=== PATIENT | female | born 1990 | race Caucasian/White ===

== ENCOUNTER → 2018-05-23 11:49 | Outpatient (CLI) | payer OTHER, SELFPAY | PROVIDERS: Family Provider Family Medicine; PCP Family Medicine; Visit Provider Family Medicine | DX: M54.5 Low back pain (principal) | CPT/HCPCS: 72100 ==

== ENCOUNTER 2018-09-14 22:46 | Emergency (ER) | payer OTHER, SELFPAY ==
[2018-09-14 22:46] VITALS: BP 116/66; PULSE 66; RESP 16; TEMP 36.4; O2SAT 100; BMI 27.2
--- NOTE | 2018-09-15 00:54 | ED.VISSUMM ---
- ER Visit Summary Date of Service: 09/15/18 Chief Complaint: Bilateral eye pain and drainage History of Present Illness: The patient is a 27 F who presents with bilateral eye pain and drainage for 1-1/2 weeks. She had some matting of her eyelids today. She states that she had some drainage and when she pulled it off it seems like part of her eye was sloughing off. She is also currently recovering from an influenza-like illness. She had fever up to 104 sore throat muscle ache and joint aches although this is improving and she has had no fever today. She states with some of the drainage on the right appeared to be bloody. She is currently on antibiotic and steroid eyedrops. She is on Vigamox and prednisolone. She was prescribed this by an broadcast operations manager. Physical Examination: Afebrile vitals normal Visual acuity 20/30 right eye, 20/30 left eye, 20/25 both eyes Patient has bilateral eyelid edema No ecchymosis Anterior chamber deep and quiet Eyelids everted and mucosa appears normal Sclera appears normal Slit-lamp examination appears to show some punctate keratitis. I do not appreciate any obvious corneal ulcer Test Results: Slit-lamp examination as above. We do not have floor seen available. Emergency Department Course and Treatment: At this time I do not see anything immediately vision not threatening. I will refer the patient to ophthalmology neuropsychology division chief. Patient advised to continue current medication regimen and was discharged home. Treatment Plan: [] Disposition: Discharge Impression: Conjunctivitis [place] keratitis This note was generated with [employer] dictation software. It may contain incorrect words, spelling, and punctuation that were not noted in review of the chart prior to signing ED Disposition - Plan for ED Patient: Chief Complaint: Eye Problem Referrals: Mei Hernandez PA-C [Primary Care Provider] -
--- NOTE | 2018-09-15 00:58 | ED.DCSUM_ITS ---
- ER Visit Summary Date of Service: 09/15/18 Chief Complaint: Bilateral eye pain and drainage History of Present Illness: The patient is a 27 F who presents with bilateral eye pain and drainage for 1-1/2 weeks. She had some matting of her eyelids today. She states that she had some drainage and when she pulled it off it seems like part of her eye was sloughing off. She is also currently recovering from an influenza-like illness. She had fever up to 104 sore throat muscle ache and joint aches although this is improving and she has had no fever today. She states with some of the drainage on the right appeared to be bloody. She is currently on antibiotic and steroid eyedrops. She is on Vigamox and prednisolone. She was prescribed this by an boomboat operator. Physical Examination: Afebrile vitals normal Visual acuity 20/30 right eye, 20/30 left eye, 20/25 both eyes Patient has bilateral eyelid edema No ecchymosis Anterior chamber deep and quiet Eyelids everted and mucosa appears normal Sclera appears normal Slit-lamp examination appears to show some punctate keratitis. I do not appreciate any obvious corneal ulcer Test Results: Slit-lamp examination as above. We do not have floor seen available. Emergency Department Course and Treatment: At this time I do not see anything immediately vision not threatening. I will refer the patient to ophthalmology gas distribution plant operator. Patient advised to continue current medication regimen and was discharged home. Treatment Plan: [] Disposition: Discharge Impression: Conjunctivitis [place] keratitis This note was generated with [employer] dictation software. It may contain incorrect words, spelling, and punctuation that were not noted in review of the chart prior to signing ED Disposition - Plan for ED Patient: Chief Complaint: Eye Problem Referrals: Mei Hernandez PA-C [Primary Care Provider] -
--- NOTE | 2018-09-15 00:58 | ED.DEP ---
ED Disposition - Plan for ED Patient: Chief Complaint: Eye Problem Instructions: ED Conjunctivitis Bacterial Referrals: Mei Hernandez PA-C [Primary Care Provider] - Justo Hamilton MD [STAFF PHYSICIAN] -
[2018-09-15 01:09] VITALS: BP 115/71; PULSE 68; RESP 18; O2SAT 100
--- OUTSIDE RECORDS SUMMARY | 2018-12-18 12:42 | XMS RPT_ITS ---
:1990 Author Organization [facility] Care Team Providers Name Role Phone Mei Hernandez PA-C Primary Care Unavailable Jimmy Jones Attending Unavailable Mei Hernandez PA-C Attending Unavailable Mei Hernandez PA-C Referring Unavailable Mei Hernandez PA-C Primary Care Unavailable PROBLEMS PROBLEMS No Problem Records FoundPROCEDURES PROCEDURES No Procedure Records FoundRESULTS RESULTS EMERGENCY DEPARTMENT Observed: 09/15/2018 Status: F Source: [place] SUMMARY 12:58 AM [facility] REPOSITORY [facility] Medical Records Department [address] [place] [id number] Emergency Department Summary 09/15/18 0054 MR#: [id number] Acct: [id number] Name: ARLEEN CLARK Rep #: [id number] : 1990 27 From: Jimmy Jones MD PCP: Mei Hernandez PA-C Status: REG ER - ER Visit Summary Date of Service: 09/15/18 Chief Complaint: Bilateral eye pain and drainage History of Present Illness: The patient is a 27 F who presents with bilateral eye pain and drainage for 1-1/2 weeks. She had some matting of her eyelids today. She states that she had some drainage and when she pulled it off it seems like part of her eye was sloughing off. She is also currently recovering from an influenza-like illness. She had fever up to 104 sore throat muscle ache and joint aches although this is improving and she has had no fever today. She states with some of the drainage on the right appeared to be bloody. She is currently on antibiotic and steroid eyedrops. She is on Vigamox and prednisolone. She was prescribed this by an ore fielder. Physical Examination: Afebrile vitals normal Visual acuity 20/30 right eye, 20/30 left eye, 20/25 both eyes Patient has bilateral eyelid edema No ecchymosis Anterior chamber deep and quiet Eyelids everted and mucosa appears normal Sclera appears normal Slit-lamp examination appears to show some punctate keratitis. I do not appreciate any obvious corneal ulcer Test Results: Slit-lamp examination as above. We do not have floor seen available. Emergency Department Course and Treatment: At this time I do not see anything immediately vision not threatening. I will refer the patient to ophthalmology ad operations associate. Patient advised to continue current medication regimen and was discharged home. Treatment Plan: [] Disposition: Discharge Impression: Conjunctivitis [place] keratitis This note was generated with Kalion dictation software. It may contain incorrect words, spelling, and punctuation that were not noted in review of the chart prior to signing ED Disposition - Plan for ED Patient: Chief Complaint: Eye Problem Referrals: Mei Hernandez PA-C [Primary Care Provider] - What to do if you have Problems For any increased pain, shortness of breath, bleeding, nausea or vomiting, chest pain, or any unexpected problems, contact your Primary Care Provider. Call [facility] ([phone]) or report to the closest Emergency Room. Call 911 if necessary. 09/15/18 0058 <Electronically signed by Jimmy Jones MD> Date Jimmy Jones MD Cosigner Signature (If Indicated): Date CC: MIGUELITO Hernandez DISCHARGE INSTRUCTION Observed: 09/15/2018 Status: F Source: [place] 12:58 AM [facility] Medical Records Department [address] [place] [address] Discharge Instruction 09/15/1857 MR#: [id number] Acct: [id number] Name: ARLEEN CLARK Rep #: [id number] : 1990 27 From: Jimmy Jones MD PCP: Mei Hernandez PA-C Status: REG ER ED Disposition - Plan for ED Patient: Chief Complaint: Eye Problem Instructions: ED Conjunctivitis Bacterial Referrals: Mei Hernandez PA-C [Primary Care Provider] - Justo Hamilton MD [STAFF PHYSICIAN] - What to do if you have Problems For any increased pain, shortness of breath, bleeding, nausea or vomiting, chest pain, or any unexpected problems, contact your Primary Care Provider. Call [facility] ([phone]) or report to the closest Emergency Room. Call 911 if necessary. 09/15/1857 <Electronically signed by Jimmy Jones MD> Date Jimmy Jones MD Cosigner Signature (If Indicated): Date CC: MIGUELITO Hernandez PROGRESS Observed: 09/10/2018 Status: COMPLETED Source: [place] 10:04 AM [facility] [place] REPOSITORY O ID: [id number] Author: Khurram Jang (Mirza) Chu Service: (none) Author Type: Physician Passenger T[employer] Builder Type: Progress Notes Filed: 09/10/2018 10:06 AM Note Text: Subjective HPI Patient presents with congestion, fever, sore throat over the past 3 days. She was seen here for a URI and conjunctivitis first started. She states she had spikes and fevers up to 104 and wasn't feeling better so she came back in today. She was seen September 07. No vomiting or diarrhea. She did not get a flu shot this year. Denies chest pain or shortness of breath. She really hasn't had a cough. Review of Systems Constitutional: Positive for chills, fever and malaise/fatigue. HENT: Positive for congestion and sore throat. Eyes: Negative. Respiratory: Negative for cough. Cardiovascular: Negative. Gastrointestinal: Negative. Genitourinary: Negative. Skin: Negative. All other systems reviewed and are negative. PAST MEDICAL HISTORY Diagnosis Date - NEGATIVE MEDICAL HISTORY Current Outpatient Prescriptions: moxifloxacin HCl (MOXIFLOXACIN OPHTHALMIC) Use in eyes. Disp: Rfl: Qbvuxmugsnpqtnf-Ffkgrpezr-DF (BROMFED DM) 2-30-10 mg/5 mL syrup Take 5-10 ml po q6h prn (Patient not taking: Reported on 09/10/2018 ) Disp: 120 mL Rfl: 0 No current facility-administered medications for this visit. PAST SURGICAL HISTORY Procedure Laterality Date - EXTRACTION ERUPTED TOOTH/EXR No family history on file. Social History Substance Use Topics - Smoking status: Never Smoker - Smokeless tobacco: Never Used - Alcohol use No BP 124/70 Pulse 88 Temp 36.9 ?C (98.4 ?F) (Tympanic) Resp 18 Wt 78.9 kg (174 lb) SpO2 97% Objective Physical Exam Constitutional: She is oriented to person, place, and time and well-developed, well-nourished, and in no distress. HENT: Head: Normocephalic and atraumatic. Right Ear: Tympanic membrane, external ear and ear canal normal. Left Ear: Tympanic membrane, external ear and ear canal normal. Nose: Mucosal edema and rhinorrhea present. Mouth/Throat: Uvula is midline and mucous membranes are normal. Posterior oropharyngeal erythema present. No oropharyngeal exudate, posterior oropharyngeal edema or tonsillar abscesses. Neck: Normal range of motion. Neck supple. Cardiovascular: Normal rate, regular rhythm and normal heart sounds. Pulmonary/Chest: Effort normal and breath sounds normal. Lymphadenopathy: She has no cervical adenopathy. Neurological: She is alert and oriented to person, place, and time. Skin: Skin is warm and dry. No rash noted. Psychiatric: Affect and judgment normal. Nursing note and vitals reviewed. ASSESSMENT/PLAN: 1. Sore throat - ICD9: 462, ICD10: J02.9 (primary diagnosis) - suspect viral - Rapid Strep negative in the office today and Throat culture pending - Discussed supportive care treatment with fluids, rest and analgesia. - RAPID STREP TEST B/O - GROUP A STREPTOCOCCUS BY PCR 2. URI, acute - ICD9: 465.9, ICD10: J06.9 - Discussed viral etiology and rationale for treatment. - Symptomatic treatment with prn analgesia - Supportive care with fluids and rest DIA McdonaldC GROUP A STREP BY Collected: 09/10/2018 Status: F Source: [place] PCR 8:00 AM [facility] REPOSITORY TYPE CODE TESTS RESULT OUT OF REFERENCE UNITS [facility] GAS Specimen Source LAB PCRGAS Negative for Group A Strep Group A PCR Streptococcus by PCR. Result Comment: This test was developed and its performance characteristics determined by [facility] Pathology and Laboratory Medicine [place] ([facility]). It has not been cleared or approved by the FDA. -[facility] is regulated under CLIA as qualified to perform high-complexity testing. This test is used for clinical purposes. It should not be regarded as inv estigational or for research. Performed By: #### GASPCR #### [facility] [address] [place], [place] [address] CNOV Observed: 09/10/2018 Status: COMPLETED Source: [place] 7:30 AM [facility] REPOSITORY Office Visit (WSTR) ARLEEN CLARK ([id number]) 1990 F Date Time Provider Department 09/10/18 7:30 AM KHURRAM SAGE) [facility] During your visit today, we recorded the following information about you: Temperature Pulse Respiration Blood pressure 98.4 degrees 88/minute 18/minute 124/70 Weight 78.9 kg Khurram Sage PA-C 09/10/2018 10:06 AM Signed Subjective HPI Patient presents with congestion, fever, sore throat over the past 3 days. She was seen here for a URI and conjunctivitis first started. She states she had spikes and fevers up to 104 and wasn't feeling better so she came back in today. She was seen September 07. No vomiting or diarrhea. She did not get a flu shot this year. Denies chest pain or shortness of breath. She really hasn't had a cough. Review of Systems Constitutional: Positive for chills, fever and malaise/fatigue. HENT: Positive for congestion and sore throat. Eyes: Negative. Respiratory: Negative for cough. Cardiovascular: Negative. Gastrointestinal: Negative. Genitourinary: Negative. Skin: Negative. All other systems reviewed and are negative. PAST MEDICAL HISTORY Diagnosis Date - NEGATIVE MEDICAL HISTORY Current Outpatient Prescriptions: moxifloxacin HCl (MOXIFLOXACIN OPHTHALMIC) Use in eyes. Disp: Rfl: Wbxfszubkdotveb-Foabhqchi-WN (BROMFED DM) 2-30-10 mg/5 mL syrup Take 5-10 ml po q6h prn (Patient not taking: Reported on 09/10/2018 ) Disp: 120 mL Rfl: 0 No current facility-administered medications for this visit. PAST SURGICAL HISTORY Procedure Laterality Date - EXTRACTION ERUPTED TOOTH/EXR No family history on file. Social History Substance Use Topics - Smoking status: Never Smoker - Smokeless tobacco: Never Used - Alcohol use No BP 124/70 Pulse 88 Temp 36.9 ?C (98.4 ?F) (Tympanic) Resp 18 Wt 78.9 kg (174 lb) SpO2 97% Objective Physical Exam Constitutional: She is oriented to person, place, and time and well-developed, well-nourished, and in no distress. HENT: Head: Normocephalic and atraumatic. Right Ear: Tympanic membrane, external ear and ear canal normal. Left Ear: Tympanic membrane, external ear and ear canal normal. Nose: Mucosal edema and rhinorrhea present. Mouth/Throat: Uvula is midline and mucous membranes are normal. Posterior oropharyngeal erythema present. No oropharyngeal exudate, posterior oropharyngeal edema or tonsillar abscesses. Neck: Normal range of motion. Neck supple. Cardiovascular: Normal rate, regular rhythm and normal heart sounds. Pulmonary/Chest: Effort normal and breath sounds normal. Lymphadenopathy: She has no cervical adenopathy. Neurological: She is alert and oriented to person, place, and time. Skin: Skin is warm and dry. No rash noted. Psychiatric: Affect and judgment normal. Nursing note and vitals reviewed. ASSESSMENT/PLAN: 1. Sore throat - ICD9: 462, ICD10: J02.9 (primary diagnosis) - suspect viral - Rapid Strep negative in the office today and Throat culture pending - Discussed supportive care treatment with fluids, rest and analgesia. - RAPID STREP TEST B/O - GROUP A STREPTOCOCCUS BY PCR 2. URI, acute - ICD9: 465.9, ICD10: J06.9 - Discussed viral etiology and rationale for treatment. - Symptomatic treatment with prn analgesia - Supportive care with fluids and rest Khurram Sage PA-C Referring Provider: SELF [200] Allergies As of Date: 09/10/2018 Noted Allergy Reaction PENICILLINS 07/04/2014 2 - Rash Date Reviewed: 09/10/2018 Reviewed by: Qiana Nash LPN - Fully Assessed Reason for Visit: fever, bodyaches, ST and congestion [Other] Cmt: x 2 days Primary Visit Diagnosis:Sore throat [J02.9] Other Visit Diagnosis:URI, acute [J06.9] Order(s):RAPID STREP TEST B/O [1059541] Order #: [id number] GROUP A STREPTOCOCCUS BY PCR [SQGASPCR] Order #: [id number] Prescriptions as of 09/10/2018 Sig: MOXIFLOXACIN OPHTHALMIC Use in eyes. BROMPHENIRAMINE-PSEUDOEPHEDRI* Take 5-10 ml po q6h prn Patient not taking: Reported on 09/10/2018 Problem List As Of Date 09/10/2018 Noted Resolved Heart murmur [R01.1] INVALID FOR* Palpitations [R00.2] INVALID FOR* PAC (premature atrial contraction) [I49.1] INVALID FOR* Non-rheumatic tricuspid valve insufficiency [I3*INVALID FOR* Letter Text Khurram Sage PA-C Urgent Care [address] [facility] [address] Dept: [phone] 09/10/2018 Arleen Clark [address] [facility] [address] To Whom it May Concern: This is to certify that Arleen Clark was seen at our office for medical care. Arleen may return to work on 09/11/2018. If you have any questions please feel free to call. Sincerely: Khurram Sage PA-C Encounter Status:Closed by KHURRAM SAGE PA-C on 09/10/18 PROGRESS Observed: 09/07/2018 Status: COMPLETED Source: [place] 8:33 AM [facility] REPOSITORY HNO ID: [id number] Author: Haven Patten Service: (none) Author Type: Nurse Practitioner Type: Progress Notes Filed: 09/07/2018 10:35 AM Note Text: Subjective HPI HPI Arleen Clark is a 27 year old female who presents today for CC of right eye redness/drainage. Was seen by opthamologist 3 days ago, placed on moxifloxicin eye drops, patient concerned that has not resolved yet. Patient does wear contact lenses. Denies possibility of being . Started having nasal congestion, cough 2 days ago. .Patient presents with: Eye Problem Sore Throat Sinus Infection,frequent/recurring PAST MEDICAL HISTORY Diagnosis Date - NEGATIVE MEDICAL HISTORY PAST SURGICAL HISTORY Procedure Laterality Date - EXTRACTION ERUPTED TOOTH/EXR ALLERGIES Penicillins MEDICATIONS moxifloxacin HCl (MOXIFLOXACIN OPHTHALMIC) Use in eyes. Jijgabxmipxthbl-Icgkutolr-YE (BROMFED DM) 2-30-10 mg/5 mL syrup Take 5-10 ml po q6h prn No family history on file. Social History Substance Use Topics - Smoking status: Never Smoker - Smokeless tobacco: Never Used - Alcohol use No Review of Systems Constitutional: Negative for chills and fever. HENT: Negative for ear discharge, ear pain and sore throat. Eyes: Positive for discharge and redness. Negative for blurred vision, double vision, photophobia and pain. Neurological: Negative for headaches. Objective Blood pressure 110/80, pulse 61, temperature 36.2 ?C (97.1 ?F), temperature source Left Tympanic, resp. rate 14, weight 78.9 kg (174 lb). Physical Exam Constitutional: She is oriented to person, place, and time and well-developed, well-nourished, and in no distress. Vital signs are normal. Non-toxic appearance. She does not have a sickly appearance. No distress. HENT: Head: Normocephalic and atraumatic. Right Ear: Hearing, tympanic membrane, external ear and ear canal normal. Left Ear: Hearing, tympanic membrane, external ear and ear canal normal. Nose: Nose normal. No mucosal edema or sinus tenderness. Mouth/Throat: Uvula is midline, oropharynx is clear and moist and mucous membranes are normal. Eyes: Pupils are equal, round, and reactive to light. Lids are normal. Right eye exhibits no discharge (large amount of clear drainage). Left eye exhibits no discharge. Right conjunctiva is injected. Left conjunctiva is not injected. No scleral icterus. Neck: Trachea normal and normal range of motion. Neck supple. Cardiovascular: Normal rate, regular rhythm and normal heart sounds. Pulmonary/Chest: Effort normal and breath sounds normal. Lymphadenopathy: She has no cervical adenopathy. Right cervical: No superficial cervical adenopathy present. Left cervical: No superficial cervical adenopathy present. No cervical lymphadenopathy bilaterally Neurological: She is alert and oriented to person, place, and time. Skin: No rash noted. She is not diaphoretic. ASSESSMENT/PLAN: 1. Bacterial conjunctivitis - ICD9: 372.39, 041.9, ICD10: H10.9 Viral -continue antibiotic as ordered by opthamologist and f/u if s/s persist - see medication orders - course and contagiousness issues discussed, including hand washing. - Instructed to call if high fever, development of periorbital redness or swelling, eye pain, visual changes, concerns or if symptoms persist. 2. URI, acute - ICD9: 465.9, ICD10: J06.9 - Discussed viral etiology and rationale for treatment. - Symptomatic treatment with prn analgesia - Supportive care with fluids and rest - Follow up in 3-5 days if symptoms persist or sooner if worsening of symptoms Prescription instructions reviewed with patient as applicable. Patient advised if symptoms do not improve or if symptoms worsen sooner, to contact the office for further evaluation by their primary care physician. Potential red flag symptoms discussed with the patient. Reviewed appropriate action plan to take if red flag symptoms occur. Patient agreeable to treatment plan. Haven Patten APRN.IRAJ CNOV Observed: 09/07/2018 Status: COMPLETED Source: [place] 8:15 AM [facility] REPOSITORY Office Visit (WSTR) ARLEEN CLARK ([id number]) 1990 F Date Time Provider Department 09/07/18 8:15 AM HAVEN PATTEN) [facility] During your visit today, we recorded the following information about you: Temperature Pulse Respiration Blood pressure 97.1 degrees 61/minute 14/minute 110/80 Weight 78.9 kg Haven Patten APRN.CNP 09/07/2018 8:21 AM Signed [facility] PATIENT INFO CONJUNCTIVITIS OVERVIEW Conjunctivitis, also called pinkeye, is defined as an inflammation of the conjunctiva. The conjunctiva is the thin membrane that lines the inner surface of the eyelids and the whites of the eyes (called the sclera). Conjunctivitis can affect children and adults. The most common symptoms of conjunctivitis include a red eye and discharge. There are many potential causes of conjunctivitis, including bacterial or viral infections, allergies, or a non-specific condition (eg, a foreign body in the eye). All types of conjunctivitis cause a red eye, although not everyone with a red eye has conjunctivitis. TYPES OF CONJUNCTIVITIS There are four main types of conjunctivitis: bacterial, viral, allergic, and non-specific. Most cases of infectious conjunctivitis are viral in adults and children; however, bacterial conjunctivitis is more common in children than in adults. Viral conjunctivitis ? Viral conjunctivitis is typically caused by a virus that can also cause the common cold. A person may have symptoms of conjunctivitis alone, or as part of a general cold syndrome, with swollen lymph nodes (glands), fever, a sore throat, and runny nose. Viral conjunctivitis is highly contagious. It is spread by contact, usually with objects which have come into contact with the infected person's eye secretions. As examples, the virus can be transmitted when an infected person touches their eye and then touches another surface (eg, door handle) or shares an object that has touched their eye (eg, a towel or pillow case). The most common symptoms of viral conjunctivitis include redness, watery or mucus discharge, and a burning, sofia, or gritty feeling in one eye. Some people have morning crusting followed by watery discharge, perhaps with some scant mucus discharge throughout the day. The second eye usually becomes infected within 24 to 48 hours. There is no cure for viral conjunctivitis. Recovery can begin within days, although the symptoms frequently get worse for the first three to five days, with gradual improvement over the following one to two weeks for a total course of two to three weeks. Some people experience morning crusting that continues for up to two weeks after the initial symptoms, although the daytime redness, irritation, and tearing should be much improved. Bacterial conjunctivitis ? Bacterial conjunctivitis is highly contagious, often affecting multiple family members or children within a classroom. Bacterial conjunctivitis is spread by contact, usually with objects which have come into contact with the infected person's eye secretions. As examples, the virus can be transmitted when an infected person touches their eye and then touches another surface (eg, door handle) or shares an object that has touched their eye (eg, a towel or pillow case). The most common symptoms of bacterial conjunctivitis include redness and thick discharge from one eye, although both eyes can become infected. The discharge may be yellow, white, or green, and it usually continues to drain throughout the day. The affected eye often is stuck shut in the morning. Most types of bacterial conjunctivitis resolve quickly and cause no permanent damage when treated with antibiotic eye drops or ointment Non-specific conjunctivitis ? It is possible to develop a red eye and discharge that is not caused by an infection or allergy. The most common causes include one of the following. ? People with a dry eye may have chronic or intermittent redness or discharge. A person whose eyes are irrigated after a chemical splash may have redness and discharge. ? A person with a foreign body (eg, dust, eyelash) in the eye may have redness and discharge for 12 to 24 hours after the object is removed. All of these problems generally improve spontaneously within 24 hours. CONJUNCTIVITIS TREATMENT The treatment of conjunctivitis depends upon the cause. For this reason, it is important to have the correct diagnosis before treatment begins. Viral conjunctivitis treatment ? A topical antihistamine/decongestant eye drop may help to relieve the itching and irritation of viral conjunctivitis. These drops are available without a prescription in most pharmacies. However, particular care must be taken to avoid spreading viral infections from one eye to the other ? apply drops only to affected eye and wash hands thoroughly after application. Similar to cold medicines, this treatment may reduce the symptoms but does not shorten the course of the infection. Another option is to use warm or cool compresses, as needed. The irritation and discharge may get worse for three to five days before getting better, and symptoms can persist for two to three weeks. Bacterial conjunctivitis treatment ? Bacterial conjunctivitis is usually treated with an antibiotic eye drop or ointment. When started early, treatment helps to shorten the duration of symptoms, although most cases do resolve spontaneously if no treatment is used. Adults ? Adults are usually treated with an antibiotic eye drop or ointment for five to seven days. Redness, irritation, and eye discharge should begin to improve within 24 to 48 hours. If there is no improvement or if the condition worsens within this time, the person should be evaluated by an heater furnace. Contact lens wearers ? People who wear contact lenses should be evaluated by a healthcare provider before treatment begins; this is to confirm the diagnosis of conjunctivitis and to be sure that another, more serious condition related to contact lens use (an infection of the cornea), is not present. People who wear contact lenses should avoid wearing the lenses during the first 24 hours of treatment, or until the eye is no longer red. The contact case should be thrown away and the contacts disinfected overnight or replaced (if disposable). Return to work/school ? The safest approach to avoid spreading viral and bacterial conjunctivitis to others is to stay home until there is no longer any discharge from the eye(s). However, this is not practical for most students and for those who work outside the home. Most daycare centers and schools require that students receive 24 hours of eye drops or ointment before returning to school. This treatment helps to prevent the spread of bacterial conjunctivitis, but is not necessary or helpful for children with viral conjunctivitis. Viral conjunctivitis is similar to a cold because it spreads easily between people. Younger children, who may not remember to wash their hands or avoid touching their eyes, should probably not attend school until the discharge has resolved. Older students or adults may choose to attend school/work, although they should limit close contact with others. In addition, adults who have contact with the very old, the very young, and people with a weakened immune system should limit contact with these susceptible individuals. Non-specific conjunctivitis treatment ? The conjunctiva heals quickly after it is injured, and non-specific conjunctivitis usually resolves within a few days without any treatment. However, the eye may feel better faster when it is treated with a lubricant, such as drops or ointments. These products are available without a prescription in most pharmacies. Preservative-free preparations are more expensive and are necessary only for people with a severe case of dry eye and those who are allergic to preservatives. Lubricant drops can be used as often as hourly with no side effects. The ointment provides longer lasting relief but blurs vision temporarily. For this reason, some people use ointment only at bedtime. It may be worthwhile to switch brands if one brand of drop or ointment is irritating, since each preparation contains different active and inactive ingredients and preservatives. Antibiotic or steroid eye drops/ointments are not recommended unless there is a specific reason they are needed (eg, a bacterial infection or inflammatory condition). Using these treatments when they are not needed can lead to serious complications. If the symptoms of conjunctivitis do not improve within two weeks, an examination with an heater furnace may be recommended. CONJUNCTIVITIS PREVENTION Bacterial and viral conjunctivitis are both highly contagious and spread by direct contact with secretions or contact with contaminated objects. Simple hygiene measures can help minimize transmission to others. ? Adults or children with bacterial or viral conjunctivitis should not share handkerchiefs, tissues, towels, cosmetics, or bed sheets/pillows with uninfected family or friends. ? Hand washing is an essential and highly effective way to prevent the spread of infection. Hands should be wet with water and plain soap, and rubbed together for 15 to 30 seconds. It is not necessary to use antibacterial hand soap. Teach children to wash their hands before and after eating and after touching the eyes, coughing, or sneezing. ? Alcohol-based hand rubs are a good alternative for disinfecting hands if a sink is not available. Hand rubs should be spread over the entire surface of hands, fingers, and wrists until dry, and may be used several times. These rubs can be used repeatedly without skin irritation or loss of effectiveness. Haven Patten APRN.[employer] ATTENDANT 09/07/2018 10:35 AM Signed Subjective HPI HPI Arleen Clark is a 27 year old female who presents today for CC of right eye redness/drainage. Was seen by opthamologist 3 days ago, placed on moxifloxicin eye drops, patient concerned that has not resolved yet. Patient does wear contact lenses. Denies possibility of being . Started having nasal congestion, cough 2 days ago. .Patient presents with: Eye Problem Sore Throat Sinus Infection,frequent/recurring PAST MEDICAL HISTORY Diagnosis Date - NEGATIVE MEDICAL HISTORY PAST SURGICAL HISTORY Procedure Laterality Date - EXTRACTION ERUPTED TOOTH/EXR ALLERGIES Penicillins MEDICATIONS moxifloxacin HCl (MOXIFLOXACIN OPHTHALMIC) Use in eyes. Udiyolhiogjctaw-Auewwdjcu-TA (BROMFED DM) 2-30-10 mg/5 mL syrup Take 5-10 ml po q6h prn No family history on file. Social History Substance Use Topics - Smoking status: Never Smoker - Smokeless tobacco: Never Used - Alcohol use No Review of Systems Constitutional: Negative for chills and fever. HENT: Negative for ear discharge, ear pain and sore throat. Eyes: Positive for discharge and redness. Negative for blurred vision, double vision, photophobia and pain. Neurological: Negative for headaches. Objective Blood pressure 110/80, pulse 61, temperature 36.2 ?C (97.1 ?F), temperature source Left Tympanic, resp. rate 14, weight 78.9 kg (174 lb). Physical Exam Constitutional: She is oriented to person, place, and time and well-developed, well-nourished, and in no distress. Vital signs are normal. Non-toxic appearance. She does not have a sickly appearance. No distress. HENT: Head: Normocephalic and atraumatic. Right Ear: Hearing, tympanic membrane, external ear and ear canal normal. Left Ear: Hearing, tympanic membrane, external ear and ear canal normal. Nose: Nose normal. No mucosal edema or sinus tenderness. Mouth/Throat: Uvula is midline, oropharynx is clear and moist and mucous membranes are normal. Eyes: Pupils are equal, round, and reactive to light. Lids are normal. Right eye exhibits no discharge (large amount of clear drainage). Left eye exhibits no discharge. Right conjunctiva is injected. Left conjunctiva is not injected. No scleral icterus. Neck: Trachea normal and normal range of motion. Neck supple. Cardiovascular: Normal rate, regular rhythm and normal heart sounds. Pulmonary/Chest: Effort normal and breath sounds normal. Lymphadenopathy: She has no cervical adenopathy. Right cervical: No superficial cervical adenopathy present. Left cervical: No superficial cervical adenopathy present. No cervical lymphadenopathy bilaterally Neurological: She is alert and oriented to person, place, and time. Skin: No rash noted. She is not diaphoretic. ASSESSMENT/PLAN: 1. Bacterial conjunctivitis - ICD9: 372.39, 041.9, ICD10: H10.9 Viral -continue antibiotic as ordered by opthamologist and f/u if s/s persist - see medication orders - course and contagiousness issues discussed, including hand washing. - Instructed to call if high fever, development of periorbital redness or swelling, eye pain, visual changes, concerns or if symptoms persist. 2. URI, acute - ICD9: 465.9, ICD10: J06.9 - Discussed viral etiology and rationale for treatment. - Symptomatic treatment with prn analgesia - Supportive care with fluids and rest - Follow up in 3-5 days if symptoms persist or sooner if worsening of symptoms Prescription instructions reviewed with patient as applicable. Patient advised if symptoms do not improve or if symptoms worsen sooner, to contact the office for further evaluation by their primary care physician. Potential red flag symptoms discussed with the patient. Reviewed appropriate action plan to take if red flag symptoms occur. Patient agreeable to treatment plan. Haven Patten APRN.IRAJ Referring Provider: SELF [200] Allergies As of Date: 09/07/2018 Noted Allergy Reaction PENICILLINS 07/04/2014 2 - Rash Date Reviewed: 09/07/2018 Reviewed by: Haven (Iraj) - Fully Assessed Reason for Visit: Eye Problem [43] Sore Throat [200] Sinus Infection,frequent/recurring [1167] Primary Visit Diagnosis:Bacterial conjunctivitis [H10.9] Other Visit Diagnosis:URI, acute [J06.9] Prescriptions as of 09/07/2018 Sig: MOXIFLOXACIN OPHTHALMIC Use in eyes. BROMPHENIRAMINE-PSEUDOEPHEDRI* Take 5-10 ml po q6h prn Problem List As Of Date 09/07/2018 Noted Resolved Heart murmur [R01.1] INVALID FOR* Palpitations [R00.2] INVALID FOR* PAC (premature atrial contraction) [I49.1] INVALID FOR* Non-rheumatic tricuspid valve insufficiency [I3*INVALID FOR* Other instructions from your clinician: EXPRESS CARE PATIENT INFO CONJUNCTIVITIS OVERVIEW Conjunctivitis, also called pinkeye, is defined as an inflammation of the conjunctiva. The conjunctiva is the thin membrane that lines the inner surface of the eyelids and the whites of the eyes (called the sclera). Conjunctivitis can affect children and adults. The most common symptoms of conjunctivitis include a red eye and discharge. There are many potential causes of conjunctivitis, including bacterial or viral infections, allergies, or a non-specific condition (eg, a foreign body in the eye). All types of conjunctivitis cause a red eye, although not everyone with a red eye has conjunctivitis. TYPES OF CONJUNCTIVITIS There are four main types of conjunctivitis: bacterial, viral, allergic, and non-specific. Most cases of infectious conjunctivitis are viral in adults and children; however, bacterial conjunctivitis is more common in children than in adults. Viral conjunctivitis ? Viral conjunctivitis is typically caused by a virus that can also cause the common cold. A person may have symptoms of conjunctivitis alone, or as part of a general cold syndrome, with swollen lymph nodes (glands), fever, a sore throat, and runny nose. Viral conjunctivitis is highly contagious. It is spread by contact, usually with objects which have come into contact with the infected person's eye secretions. As examples, the virus can be transmitted when an infected person touches their eye and then touches another surface (eg, door handle) or shares an object that has touched their eye (eg, a towel or pillow case). The most common symptoms of viral conjunctivitis include redness, watery or mucus discharge, and a burning, sofia, or gritty feeling in one eye. Some people have morning crusting followed by watery discharge, perhaps with some scant mucus discharge throughout the day. The second eye usually becomes infected within 24 to 48 hours. There is no cure for viral conjunctivitis. Recovery can begin within days, although the symptoms frequently get worse for the first three to five days, with gradual improvement over the following one to two weeks for a total course of two to three weeks. Some people experience morning crusting that continues for up to two weeks after the initial symptoms, although the daytime redness, irritation, and tearing should be much improved. Bacterial conjunctivitis ? Bacterial conjunctivitis is highly contagious, often affecting multiple family members or children within a classroom. Bacterial conjunctivitis is spread by contact, usually with objects which have come into contact with the infected person's eye secretions. As examples, the virus can be transmitted when an infected person touches their eye and then touches another surface (eg, door handle) or shares an object that has touched their eye (eg, a towel or pillow case). The most common symptoms of bacterial conjunctivitis include redness and thick discharge from one eye, although both eyes can become infected. The discharge may be yellow, white, or green, and it usually continues to drain throughout the day. The affected eye often is stuck shut in the morning. Most types of bacterial conjunctivitis resolve quickly and cause no permanent damage when treated with antibiotic eye drops or ointment Non-specific conjunctivitis ? It is possible to develop a red eye and discharge that is not caused by an infection or allergy. The most common causes include one of the following. ? People with a dry eye may have chronic or intermittent redness or discharge. A person whose eyes are irrigated after a chemical splash may have redness and discharge. ? A person with a foreign body (eg, dust, eyelash) in the eye may have redness and discharge for 12 to 24 hours after the object is removed. All of these problems generally improve spontaneously within 24 hours. CONJUNCTIVITIS TREATMENT The treatment of conjunctivitis depends upon the cause. For this reason, it is important to have the correct diagnosis before treatment begins. Viral conjunctivitis treatment ? A topical antihistamine/decongestant eye drop may help to relieve the itching and irritation of viral conjunctivitis. These drops are available without a prescription in most pharmacies. However, particular care must be taken to avoid spreading viral infections from one eye to the other ? apply drops only to affected eye and wash hands thoroughly after application. Similar to cold medicines, this treatment may reduce the symptoms but does not shorten the course of the infection. Another option is to use warm or cool compresses, as needed. The irritation and discharge may get worse for three to five days before getting better, and symptoms can persist for two to three weeks. Bacterial conjunctivitis treatment ? Bacterial conjunctivitis is usually treated with an antibiotic eye drop or ointment. When started early, treatment helps to shorten the duration of symptoms, although most cases do resolve spontaneously if no treatment is used. Adults ? Adults are usually treated with an antibiotic eye drop or ointment for five to seven days. Redness, irritation, and eye discharge should begin to improve within 24 to 48 hours. If there is no improvement or if the condition worsens within this time, the person should be evaluated by an heater furnace. Contact lens wearers ? People who wear contact lenses should be evaluated by a healthcare provider before treatment begins; this is to confirm the diagnosis of conjunctivitis and to be sure that another, more serious condition related to contact lens use (an infection of the cornea), is not present. People who wear contact lenses should avoid wearing the lenses during the first 24 hours of treatment, or until the eye is no longer red. The contact case should be thrown away and the contacts disinfected overnight or replaced (if disposable). Return to work/school ? The safest approach to avoid spreading viral and bacterial conjunctivitis to others is to stay home until there is no longer any discharge from the eye(s). However, this is not practical for most students and for those who work outside the home. Most daycare centers and schools require that students receive 24 hours of eye drops or ointment before returning to school. This treatment helps to prevent the spread of bacterial conjunctivitis, but is not necessary or helpful for children with viral conjunctivitis. Viral conjunctivitis is similar to a cold because it spreads easily between people. Younger children, who may not remember to wash their hands or avoid touching their eyes, should probably not attend school until the discharge has resolved. Older students or adults may choose to attend school/work, although they should limit close contact with others. In addition, adults who have contact with the very old, the very young, and people with a weakened immune system should limit contact with these susceptible individuals. Non-specific conjunctivitis treatment ? The conjunctiva heals quickly after it is injured, and non-specific conjunctivitis usually resolves within a few days without any treatment. However, the eye may feel better faster when it is treated with a lubricant, such as drops or ointments. These products are available without a prescription in most pharmacies. Preservative-free preparations are more expensive and are necessary only for people with a severe case of dry eye and those who are allergic to preservatives. Lubricant drops can be used as often as hourly with no side effects. The ointment provides longer lasting relief but blurs vision temporarily. For this reason, some people use ointment only at bedtime. It may be worthwhile to switch brands if one brand of drop or ointment is irritating, since each preparation contains different active and inactive ingredients and preservatives. Antibiotic or steroid eye drops/ointments are not recommended unless there is a specific reason they are needed (eg, a bacterial infection or inflammatory condition). Using these treatments when they are not needed can lead to serious complications. If the symptoms of conjunctivitis do not improve within two weeks, an examination with an heater furnace may be recommended. CONJUNCTIVITIS PREVENTION Bacterial and viral conjunctivitis are both highly contagious and spread by direct contact with secretions or contact with contaminated objects. Simple hygiene measures can help minimize transmission to others. ? Adults or children with bacterial or viral conjunctivitis should not share handkerchiefs, tissues, towels, cosmetics, or bed sheets/pillows with uninfected family or friends. ? Hand washing is an essential and highly effective way to prevent the spread of infection. Hands should be wet with water and plain soap, and rubbed together for 15 to 30 seconds. It is not necessary to use antibacterial hand soap. Teach children to wash their hands before and after eating and after touching the eyes, coughing, or sneezing. ? Alcohol-based hand rubs are a good alternative for disinfecting hands if a sink is not available. Hand rubs should be spread over the entire surface of hands, fingers, and wrists until dry, and may be used several times. These rubs can be used repeatedly without skin irritation or loss of effectiveness. Encounter Status:Closed by HAVEN PATTEN CNP on 09/07/18 PROGRESS Observed: 07/02/2018 Status: COMPLETED Source: [place] 3:45 PM [facility] REPOSITORY O ID: [id number] Author: Sushma (Iraj) Carlos Service: (none) Author Type: Nurse Practitioner Type: Progress Notes Filed: 07/02/2018 4:01 PM Note Text: Fredo Clark is a 27 year old female who presents with 3 weeks of cold symptoms and one week of sore throat. Her cold symptoms improved for about a week then returned. Her cough is worse, keeps her up at night. She has taken Bromfed at home for cough. Sick contacts include her children. Review of Systems Constitutional: Negative. Negative for fever. HENT: Positive for congestion and sore throat. Negative for sinus pain. Respiratory: Positive for cough and sputum production. Negative for shortness of breath. Cardiovascular: Negative. Negative for chest pain. Gastrointestinal: Negative for nausea and vomiting. Skin: Negative. Negative for rash. Neurological: Negative for headaches. BP 110/80 Pulse 86 Temp 37.1 ?C (98.8 ?F) (Tympanic) Resp 16 Wt 79.4 kg (175 lb) SpO2 100% PAST MEDICAL HISTORY Diagnosis Date - NEGATIVE MEDICAL HISTORY PAST SURGICAL HISTORY Procedure Laterality Date - EXTRACTION ERUPTED TOOTH/EXR ALLERGIES Penicillins MEDICATIONS Easfxvezegtwgpc-Kwqtburnw-XI (BROMFED DM) 2-30-10 mg/5 mL syrup Take 5-10 ml po q6h prn FLUoxetine (PROZAC) 20 mg capsule Take 20 mg by mouth once daily. sucralfate (CARAFATE) 100 mg/mL suspension Take 10 mL by mouth before meals and at bedtime. (560cc=2wks) fluconazole (DIFLUCAN) 100 mg tablet Take 100 mg by mouth once each week. No family history on file. Social History Substance Use Topics - Smoking status: Never Smoker - Smokeless tobacco: Never Used - Alcohol use No Objective Physical Exam Constitutional: She is well-developed, well-nourished, and in no distress. HENT: Right Ear: Tympanic membrane, external ear and ear canal normal. Left Ear: Tympanic membrane, external ear and ear canal normal. Nose: Sinus tenderness present. Mouth/Throat: Uvula is midline and mucous membranes are normal. No posterior oropharyngeal edema or posterior oropharyngeal erythema. Cardiovascular: Normal rate and regular rhythm. Pulmonary/Chest: Effort normal and breath sounds normal. No respiratory distress. She has no wheezes. She has no rales. Neurological: She is alert. Skin: Skin is warm and dry. No rash noted. Nursing note and vitals reviewed. ASSESSMENT/PLAN: 1. Sinobronchitis - ICD9: 473.9, 490, ICD10: J32.9, J40 - Will begin treatment with Doxycline - The patient should also be given Mucinex for the first 5- 7 days of treatment. - Supportive care with plenty of fluids, rest, and analgesia prn. - GUAIFENESIN ER 600 MG TABLET, EXTENDED RELEASE 12 HR - DOXYCYCLINE HYCLATE 100 MG CAPSULE - CODEINE 10 MG-GUAIFENESIN 100 MG/5 ML ORAL LIQUID - Follow-up with your PCP in 3-5 days if symptoms have not improved or sooner if symptoms worsen - Discussed red flags and need for immediate medical evaluation if any occur. - Discussed supportive care treatment with fluids, rest and analgesia. - Discussed expected course of illness Sushma Gonzalez APRN.CNP CNOV Observed: 07/02/2018 Status: COMPLETED Source: [place] 3:30 PM [facility] REPOSITORY Office Visit (W[facility]) ARLEEN CLARK ([id number]) 1990 F Date Time Provider Department 07/02/18 3:30 PM SUSHMA GONZALEZ (IRAJ) [facility] During your visit today, we recorded the following information about you: Temperature Pulse Respiration Blood pressure 98.8 degrees 86/minute 16/minute 110/80 Weight 79.4 kg Sushma Gonzalez APRN.CNP 07/02/2018 4:01 PM Signed Subjective Arleen Clark is a 27 year old female who presents with 3 weeks of cold symptoms and one week of sore throat. Her cold symptoms improved for about a week then returned. Her cough is worse, keeps her up at night. She has taken Bromfed at home for cough. Sick contacts include her children. Review of Systems Constitutional: Negative. Negative for fever. HENT: Positive for congestion and sore throat. Negative for sinus pain. Respiratory: Positive for cough and sputum production. Negative for shortness of breath. Cardiovascular: Negative. Negative for chest pain. Gastrointestinal: Negative for nausea and vomiting. Skin: Negative. Negative for rash. Neurological: Negative for headaches. BP 110/80 Pulse 86 Temp 37.1 ?C (98.8 ?F) (Tympanic) Resp 16 Wt 79.4 kg (175 lb) SpO2 100% PAST MEDICAL HISTORY Diagnosis Date - NEGATIVE MEDICAL HISTORY PAST SURGICAL HISTORY Procedure Laterality Date - EXTRACTION ERUPTED TOOTH/EXR ALLERGIES Penicillins MEDICATIONS Jlkauvgqcgpxwfg-Sktonhlbw-RF (BROMFED DM) 2-30-10 mg/5 mL syrup Take 5-10 ml po q6h prn FLUoxetine (PROZAC) 20 mg capsule Take 20 mg by mouth once daily. sucralfate (CARAFATE) 100 mg/mL suspension Take 10 mL by mouth before meals and at bedtime. (560cc=2wks) fluconazole (DIFLUCAN) 100 mg tablet Take 100 mg by mouth once each week. No family history on file. Social History Substance Use Topics - Smoking status: Never Smoker - Smokeless tobacco: Never Used - Alcohol use No Objective Physical Exam Constitutional: She is well-developed, well-nourished, and in no distress. HENT: Right Ear: Tympanic membrane, external ear and ear canal normal. Left Ear: Tympanic membrane, external ear and ear canal normal. Nose: Sinus tenderness present. Mouth/Throat: Uvula is midline and mucous membranes are normal. No posterior oropharyngeal edema or posterior oropharyngeal erythema. Cardiovascular: Normal rate and regular rhythm. Pulmonary/Chest: Effort normal and breath sounds normal. No respiratory distress. She has no wheezes. She has no rales. Neurological: She is alert. Skin: Skin is warm and dry. No rash noted. Nursing note and vitals reviewed. ASSESSMENT/PLAN: 1. Sinobronchitis - ICD9: 473.9, 490, ICD10: J32.9, J40 - Will begin treatment with Doxycline - The patient should also be given Mucinex for the first 5- 7 days of treatment. - Supportive care with plenty of fluids, rest, and analgesia prn. - GUAIFENESIN ER 600 MG TABLET, EXTENDED RELEASE 12 HR - DOXYCYCLINE HYCLATE 100 MG CAPSULE - CODEINE 10 MG-GUAIFENESIN 100 MG/5 ML ORAL LIQUID - Follow-up with your PCP in 3-5 days if symptoms have not improved or sooner if symptoms worsen - Discussed red flags and need for immediate medical evaluation if any occur. - Discussed supportive care treatment with fluids, rest and analgesia. - Discussed expected course of illness FLAQUITO Melchor APRN.CNP 07/02/2018 3:54 PM Signed ASSESSMENT/PLAN: 1. Sinobronchitis - ICD9: 473.9, 490, ICD10: J32.9, J40 - Will begin treatment with Doxycline - The patient should also be given Mucinex for the first 5- 7 days of treatment. - Supportive care with plenty of fluids, rest, and analgesia prn. - GUAIFENESIN ER 600 MG TABLET, EXTENDED RELEASE 12 HR - DOXYCYCLINE HYCLATE 100 MG CAPSULE - CODEINE 10 MG-GUAIFENESIN 100 MG/5 ML ORAL LIQUID - Follow-up with your PCP in 3-5 days if symptoms have not improved or sooner if symptoms worsen - Discussed red flags and need for immediate medical evaluation if any occur. - Discussed supportive care treatment with fluids, rest and analgesia. - Discussed expected course of illness ACUTE BRONCHITIS: You have acute bronchitis. This means the airway passages in your lungs are inflamed. Bronchitis may be caused by viruses or bacteria. Inhaling cigarette smoke will always make it worse. Exposure to irritating chemicals or second hand smoke as well as allergies can contribute to bronchitis. Repeat episodes of bronchitis may cause lifelong lung problems. Acute bronchitis is usually treated with rest, fluids, cough medicine, and possibly antibiotics or inhaled medicine to open up the small airways. It is very important that you avoid smoke and drink increased amounts of fluids. A cool air vaporizer can help thin bronchial secretions. This makes it easier to cough and clear your chest. If you are a cigarette smoker, consider using nicotine gum or skin patches to help you withdraw. Recovery from bronchitis is often slow, but you should start feeling better after 2-3 days of treatment. Please call your doctor or return here if you have any of the following symptoms: - Increased fever, chills, or chest pain. - Severe shortness of breath or bloody sputum. - Do not improve after 3 days of proper treatment. Referring Provider: SELF [200] Allergies As of Date: 07/02/2018 Noted Allergy Reaction PENICILLINS 07/04/2014 2 - Rash Date Reviewed: 07/02/2018 Reviewed by: Sushma ([facility]) Carlos - Fully Assessed Reason for Visit: Cough [28] Cmt: X 1 wk, nasal congestion AND sore throat X2 days Primary Visit Diagnosis:Sinobronchitis [J32.9, J40] Order(s):guaiFENesin (MUCINEX) 600 mg 12 hr tabletTake 1 tablet by mouth twice daily for 10 days.Disp: 20 tabletRfl: 0 doxycycline hyclate (VIBRAMYCIN) 100 mg capsuleTake 1 capsule by mouth twice daily for 10 days.Disp: 20 capsuleRfl: 0 codeine-guaiFENesin (ROBITUSSIN AC) 10-100 mg/5 mL syrupTake 5-10 mL by mouth four times daily as needed for Cough for up to 7 days. May cause drowsiness.Disp: 120 mLRfl: 0 Prescriptions as of 07/02/2018 Sig: BROMPHENIRAMINE-PSEUDOEPHEDRI* Take 5-10 ml po q6h prn GUAIFENESIN ER 600 MG TABLET,* Take 1 tablet by mouth twice * DOXYCYCLINE HYCLATE 100 MG CA* Take 1 capsule by mouth twice* CODEINE 10 MG-GUAIFENESIN 100* Take 5-10 mL by mouth four ti* Problem List As Of Date 07/02/2018 Noted Resolved Heart murmur [R01.1] INVALID FOR* Palpitations [R00.2] INVALID FOR* PAC (premature atrial contraction) [I49.1] INVALID FOR* Non-rheumatic tricuspid valve insufficiency [I3*INVALID FOR* Other instructions from your clinician: ASSESSMENT/PLAN: 1. Sinobronchitis - ICD9: 473.9, 490, ICD10: J32.9, J40 - Will begin treatment with Doxycline - The patient should also be given Mucinex for the first 5-7 days of treatment. - Supportive care with plenty of fluids, rest, and analgesia prn. - GUAIFENESIN ER 600 MG TABLET, EXTENDED RELEASE 12 HR - DOXYCYCLINE HYCLATE 100 MG CAPSULE - CODEINE 10 MG-GUAIFENESIN 100 MG/5 ML ORAL LIQUID - Follow-up with your PCP in 3-5 days if symptoms have not improved or sooner if symptoms worsen - Discussed red flags and need for immediate medical evaluation if any occur. - Discussed supportive care treatment with fluids, rest and analgesia. - Discussed expected course of illness ACUTE BRONCHITIS: You have acute bronchitis. This means the airway passages in your lungs are inflamed. Bronchitis may be caused by viruses or bacteria. Inhaling cigarette smoke will always make it worse. Exposure to irritating chemicals or second hand smoke as well as allergies can contribute to bronchitis. Repeat episodes of bronchitis may cause lifelong lung problems. Acute bronchitis is usually treated with rest, fluids, cough medicine, and possibly antibiotics or inhaled medicine to open up the small airways. It is very important that you avoid smoke and drink increased amounts of fluids. A cool air vaporizer can help thin bronchial secretions. This makes it easier to cough and clear your chest. If you are a cigarette smoker, consider using nicotine gum or skin patches to help you withdraw. Recovery from bronchitis is often slow, but you should start feeling better after 2-3 days of treatment. Please call your doctor or return here if you have any of the following symptoms: - Increased fever, chills, or chest pain. - Severe shortness of breath or bloody sputum. - Do not improve after 3 days of proper treatment. Prescriptions ordered this encounter Disp Refills Start End GUAIFENESIN ER 600 MG TABLET, EXTEND* 20 t* 0 07/02/2018 07/12/2018 Route: ORAL Sig: Take 1 tablet by mouth twice daily for 10 days. DOXYCYCLINE HYCLATE 100 MG CAPSULE 20 c* 0 07/02/2018 07/12/2018 Route: ORAL Sig: Take 1 capsule by mouth twice daily for 10 days. CODEINE 10 MG-GUAIFENESIN 100 MG/5 M* 120 * 0 07/02/2018 07/09/2018 Class: Print RX Route: ORAL Sig: Take 5-10 mL by mouth four times daily as needed for Cough for up to 7 days. May cause drowsiness. Medications Discontinued During This Encounter FLUoxetine (PROZAC) 20 mg capsule 07/02/2018 Class: Historical Med Route: ORAL Sig: Take 20 mg by mouth once daily. Disc: Reason for discontinue is not on file. sucralfate (CARAFATE) 100 mg/mL susp* 100 * 0 08/22/2016 07/02/2018 Route: ORAL Sig: Take 10 mL by mouth before meals and at bedtime. (560cc=2wks) Disc: Reason for discontinue is not on file. fluconazole (DIFLUCAN) 100 mg tablet 07/02/2018 Class: Historical Med Route: ORAL Sig: Take 100 mg by mouth once each week. Disc: Reason for discontinue is not on file. Encounter Status:Closed by SUSHMA GONZALEZ on 07/02/18 LUMBAR SPINE 2 OR 3 Observed: 05/23/2018 Status: F Source: [facility] 11:53 AM [facility] REPOSITORY [facility] Imaging Services [address] [place] [address] [place] [address] Lumbar Spine 2 or 3 Views MR#: [id number] Acct: [id number] Name: ARLEEN CLARK Rep #: [id number] : 1990 F 27 From: Gianni Estrada MD PCP: Mei Hernandez PA-C Status: REG CLI Study: Lumbar Spine 2 or 3 Views Date of Exam: 05/23/18 Exam# [id number] Ordering Dr: Mei Hernandez PA-C STUDY: X-RAY - LUMBAR SPINE REASON FOR EXAM: Female, 27 years old. Low back pain. No trauma TECHNIQUE: 3 view(s) of the lumbar spine were obtained. COMPARISON: None FINDINGS: Normal lumbar lordosis. There is no substantial scoliosis. There is a normal alignment of the vertebrae. Normal vertebral bodies and endplates. Normal disc space heights. The soft tissue structures are unremarkable. RAD/Lumbar Spine 2 or 3 Views IMPRESSION: Normal x-ray examination of the lumbar spine. No fractures. No disc disease. Electronically Signed: Gianni Estrada, at 1:10 EDT Tel , Service support , CC: MIGUELITO Hernandez Technologist Development: Signed PROGRESS Observed: 05/02/2018 Status: COMPLETED Source: [place] 8:49 AM [facility] REPOSITORY HNO ID: [id number] Author: Maximino Whitman Service: (none) Author Type: Physician Type: Progress Notes Filed: 05/02/2018 9:25 AM Note Text: Patient presents with: Cough: x 2 days Pain, Sinus: x 2 days Headache: x 2 days Allergies: x 2 days Eye Problem: x 1 days bilateral eyes irritated HPI: Feeling sick for 2-3 days Positive symptoms: Cough, Sinus pressure, Headache, irritated red eyes (L>R), small eye discharge, contact lens use, right Earache, Nasal Congestion, Rhinorrhea, low Fever, body aches Negative symptoms: Shortness of breath, Chest pain, Vomiting, Diarrhea, OTC: Ibuprofen PAST MEDICAL HISTORY Diagnosis Date - NEGATIVE MEDICAL HISTORY PAST SURGICAL HISTORY Procedure Laterality Date - EXTRACTION ERUPTED TOOTH/EXR MEDICATIONS: Current Outpatient Prescriptions: Jbpntqxqauyaqqt-Zbfujcuxq-NU (BROMFED DM) 2-30-10 mg/5 mL syrup Take 5-10 ml po q6h prn FLUoxetine (PROZAC) 20 mg capsule Take 20 mg by mouth once daily. sucralfate (CARAFATE) 100 mg/mL suspension Take 10 mL by mouth before meals and at bedtime. (560cc=2wks) fluconazole (DIFLUCAN) 100 mg tablet Take 100 mg by mouth once each week. No current facility-administered medications for this visit. ALLERGIES: ALLERGIES Allergen Reactions - Penicillins Rash VITALS: BP 132/62 Pulse 77 Temp 37.2 ?C (99 ?F) Resp 16 Wt 78.9 kg (174 lb) SpO2 96% PHYSICAL EXAM: GEN: mildly ill appearing HEENT: PERRL, EOMI, conjunctiva with mild injection Ears: canals clear, TMs without erythema, bulge, or effusion Sinuses: pressure over sinuses Throat: moist mucous membranes, mild erythema, no exudate Neck: supple, no thyromegaly, no lymphadenopathy HEART: regular rate and rhythm, no murmurs LUNGS: clear to auscultation, no wheezes or crackles, no increased WOB ASSESSMENT/PLAN: 1. URI, acute - ICD9: 465.9, ICD10: J06.9 (primary diagnosis) - Symptomatic treatment with prn analgesia - OFLOXACIN 0.3 % EYE DROPS 2. Acute conjunctivitis of both eyes, unspecified acute conjunctivitis type - ICD9: 372.00, ICD10: H10.33 [place] eye discussed. Infectious conjunctivitis is most commonly caused by cold viruses and is a self-limited condition which usually resolves in about a week. Bacterial conjunctivitis usually follows a similar course, but symptoms and contagiousness are responsive to antibiotics. Bacterial infection can rarely progress to more serious infection. Hand hygiene with washing or torch burner is important to reduce spread of the infection. Seek re-evaluation for high fever, increasing periocular redness/swelling, eye pain, or vision change as these can be symptoms of serious infection. Cover contact lens associated pathogens- OFLOXACIN 0.3 % EYE DROPS Maximino Whitman MD CNOV Observed: 05/02/2018 Status: COMPLETED Source: [place] 8:30 AM [facility] REPOSITORY Office Visit (WSTR) ARLEEN CLARK ([id number]) 1990 F Date Time Provider Department 05/02/18 8:30 AM MAXIMINO WHITMAN [facility] During your visit today, we recorded the following information about you: Temperature Pulse Respiration Blood pressure 99 degrees 77/minute 16/minute 132/62 Weight 78.9 kg Maximino Whitman MD 05/02/2018 9:25 AM Signed Patient presents with: Cough: x 2 days Pain, Sinus: x 2 days Headache: x 2 days Allergies: x 2 days Eye Problem: x 1 days bilateral eyes irritated HPI: Feeling sick for 2-3 days Positive symptoms: Cough, Sinus pressure, Headache, irritated red eyes (L>R), small eye discharge, contact lens use, right Earache, Nasal Congestion, Rhinorrhea, low Fever, body aches Negative symptoms: Shortness of breath, Chest pain, Vomiting, Diarrhea, OTC: Ibuprofen PAST MEDICAL HISTORY Diagnosis Date - NEGATIVE MEDICAL HISTORY PAST SURGICAL HISTORY Procedure Laterality Date - EXTRACTION ERUPTED TOOTH/EXR MEDICATIONS: Current Outpatient Prescriptions: Aluesrysyletkpg-Xlrvvnqgv-RG (BROMFED DM) 2-30-10 mg/5 mL syrup Take 5-10 ml po q6h prn FLUoxetine (PROZAC) 20 mg capsule Take 20 mg by mouth once daily. sucralfate (CARAFATE) 100 mg/mL suspension Take 10 mL by mouth before meals and at bedtime. (560cc=2wks) fluconazole (DIFLUCAN) 100 mg tablet Take 100 mg by mouth once each week. No current facility-administered medications for this visit. ALLERGIES: ALLERGIES Allergen Reactions - Penicillins Rash VITALS: BP 132/62 Pulse 77 Temp 37.2 ?C (99 ?F) Resp 16 Wt 78.9 kg (174 lb) SpO2 96% PHYSICAL EXAM: GEN: mildly ill appearing HEENT: PERRL, EOMI, conjunctiva with mild injection Ears: canals clear, TMs without erythema, bulge, or effusion Sinuses: pressure over sinuses Throat: moist mucous membranes, mild erythema, no exudate Neck: supple, no thyromegaly, no lymphadenopathy HEART: regular rate and rhythm, no murmurs LUNGS: clear to auscultation, no wheezes or crackles, no increased WOB ASSESSMENT/PLAN: 1. URI, acute - ICD9: 465.9, ICD10: J06.9 (primary diagnosis) - Symptomatic treatment with prn analgesia - OFLOXACIN 0.3 % EYE DROPS 2. Acute conjunctivitis of both eyes, unspecified acute conjunctivitis type - ICD9: 372.00, ICD10: H10.33 [place] eye discussed. Infectious conjunctivitis is most commonly caused by cold viruses and is a self-limited condition which usually resolves in about a week. Bacterial conjunctivitis usually follows a similar course, but symptoms and contagiousness are responsive to antibiotics. Bacterial infection can rarely progress to more serious infection. Hand hygiene with washing or torch burner is important to reduce spread of the infection. Seek re-evaluation for high fever, increasing periocular redness/swelling, eye pain, or vision change as these can be symptoms of serious infection. Cover contact lens associated pathogens- OFLOXACIN 0.3 % EYE DROPS Maximino Whitman MD Referring Provider: SELF [200] Allergies As of Date: 05/02/2018 Noted Allergy Reaction PENICILLINS 07/04/2014 2 - Rash Date Reviewed: 05/02/2018 Reviewed by: Saray Mercado LPN - Fully Assessed Reason for Visit: Cough [28] Cmt: x 2 days Pain, Sinus [857] Cmt: x 2 days Headache [52] Cmt: x 2 days Allergies [4] Cmt: x 2 days Eye Problem [43] Cmt: x 1 days bilateral eyes irritated Primary Visit Diagnosis:URI, acute [J06.9] Other Visit Diagnosis:Acute conjunctivitis of both eyes, unspecified acute conjunctivitis type [H10.33] Order(s):ofloxacin (OCUFLOX) 0.3 % ophthalmic solutionUse 2 Drops in both eyes every 4 hours for 7 days.Disp: 1 BottleRfl: 0 Prescriptions as of 05/02/2018 Sig: BROMPHENIRAMINE-PSEUDOEPHEDRI* Take 5-10 ml po q6h prn OFLOXACIN 0.3 % EYE DROPS Use 2 Drops in both eyes ever* FLUOXETINE 20 MG CAPSULE Take 20 mg by mouth once blaine* SUCRALFATE 100 MG/ML ORAL TRESA* Take 10 mL by mouth before me* FLUCONAZOLE 100 MG TABLET Take 100 mg by mouth once eac* Problem List As Of Date 05/02/2018 Noted Resolved Heart murmur [R01.1] INVALID FOR* Palpitations [R00.2] INVALID FOR* PAC (premature atrial contraction) [I49.1] INVALID FOR* Non-rheumatic tricuspid valve insufficiency [I3*INVALID FOR* Prescriptions ordered this encounter Disp Refills Start End OFLOXACIN 0.3 % EYE DROPS 1 Bautista* 0 05/02/2018 05/09/2018 Route: BOTH EYES Sig: Use 2 Drops in both eyes every 4 hours for 7 days. Letter Text [facility] [address], [place] [address] 05/02/2018 Arleen Clark [facility]# [id number] [address] [place] [address] TO WHOM IT MAY CONCERN: This is to confirm that Arleen Clark had an appointment and was seen at the [facility] in the Department of Urgent Care by Maximino Whitman MD on 05/02/2018 for illness. Sincerely , Maximino Whitman MD Encounter Status:Closed by MAXIMINO WHITMAN MD on 05/02/18 GROUP A STREP BY Collected: 02/05/2018 Status: F Source: [place] PCR 10:00 AM [facility] REPOSITORY TYPE CODE TESTS RESULT OUT OF REFERENCE UNITS RANGE LAB GASSRC Throat Swab GAS Specimen Source LAB PCRGAS Negative for Group A Strep Group A PCR Streptococcus by PCR. Result Comment: This test was developed and its performance characteristics determined by [facility] ([facility]). It has not been cleared or approved by the FDA. [facility] is regulated under CLIA as qualified to perform high-complexity testing. This test is used for clinical purposes. It should not be regarded as inv estigational or for research. Performed By: #### GASPCR #### [facility] [address] [place], [place] [address] PROGRESS Observed: 02/05/2018 Status: COMPLETED Source: [place] 9:48 AM [facility] REPOSITORY HNO ID: [id number] Author: Saniya Francis ([employer]) Service: (none) Author Type: Nurse Practitioner Type: Progress Notes Filed: 02/05/2018 10:12 AM Note Text: Subjective HPI HPI Arleen Clark is a 27 year old female who presents today for CC of sore throat This started over the past week. She is also having ear pain. Symptoms are worsened by swallowing She has tried tylenol with slight relief. 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 Social History Marital status: Spouse name: Years of education: Number of children: Social History Main Topics Smoking status: Never Smoker Smokeless tobacco: Never Used Alcohol use: No Review of Systems Constitutional: Negative. Negative for chills, fever and malaise/fatigue. HENT: Positive for congestion, ear pain, sinus pain and sore throat. Respiratory: Negative for cough, sputum production, shortness of breath and wheezing. Cardiovascular: Negative for chest pain. Musculoskeletal: Positive for myalgias. Skin: Negative for rash. Neurological: Negative for headaches. Objective Physical Exam Constitutional: She is well-developed, well-nourished, and in no distress. HENT: Head: Normocephalic and atraumatic. Right Ear: External ear and ear canal normal. Tympanic membrane is bulging. Tympanic membrane is not injected, not erythematous and not retracted. A middle ear effusion (serous) is present. Right ear hemotympanum: bulging. Left Ear: External ear and ear canal normal. Tympanic membrane is bulging. Tympanic membrane is not injected, not erythematous and not retracted. A middle ear effusion (serous) is present. Nose: Mucosal edema and rhinorrhea present. Right sinus exhibits maxillary sinus tenderness. Right sinus exhibits no frontal sinus tenderness. Left sinus exhibits maxillary sinus tenderness. Left sinus exhibits no frontal sinus tenderness. Mouth/Throat: Uvula is midline and mucous membranes are normal. Posterior oropharyngeal erythema present. No oropharyngeal exudate, posterior oropharyngeal edema or tonsillar abscesses. Clear thick post nasal drainage Eyes: Conjunctivae and EOM are normal. Pupils are equal, round, and reactive to light. Neck: Normal range of motion. Cardiovascular: Normal rate, regular rhythm and normal heart sounds. Pulmonary/Chest: Effort normal and breath sounds normal. No respiratory distress. She has no wheezes. She has no rales. Lymphadenopathy: Head (right side): No submental, no submandibular, no tonsillar, no preauricular and no posterior auricular adenopathy present. Head (left side): No submental, no submandibular, no tonsillar, no preauricular and no posterior auricular adenopathy present. She has no cervical adenopathy. Right cervical: No posterior cervical adenopathy present. Left cervical: No posterior cervical adenopathy present. Right: No supraclavicular adenopathy present. Left: No supraclavicular adenopathy present. Skin: Skin is warm and dry. Psychiatric: Affect normal. Nursing note and vitals reviewed. ASSESSMENT/PLAN: 1. URI with cough and congestion - ICD9: 465.9, ICD10: J06.9 (primary diagnosis) - Discussed viral etiology and rationale for treatment. You need to rest as much as possible. Motrin or Tylenol as needed for fever or pain. Salt water gargles, chloraseptic spray or lozenges as needed for sore throat. Nasal saline irrigation at least 2 x day. Drink at least 8 glasses of fluids per day that aren't caffeinated. Eat a nutritious diet. Use a humidifier in your room at night. DO NOT take any other OTC cough or cold medication while taking the prescription Bromfed DM. It is ok to take an OTC pain reliever/fever tool design drafter though such as advil or tylenol as needed. 2. Sore throat - ICD9: 462, ICD10: J02.9 - suspect viral - Rapid Strep negative in the office today - overnight throat culture pending, Only call if Strep culture is positive. - Discussed supportive care treatment with fluids, rest and analgesia. - The patient may also use warm salt water gargles, throat lozenges and/or OTC throat spray as needed. - The patient should follow up in one week if symptoms persist or worsen - Call back if drooling, increased temperature, symptoms of dehydration and/or still sick in one week - GROUP A STREPTOCOCCUS BY PCR - RAPID STREP TEST B/O * Seek medical care immediately, call 911, go to ER if you have chest pain, difficulty breathing, shortness of breath, inability to swallow. Diagnosis and treatment plan were discussed and questions were answered to the patient's satisfaction. Pt acknowledged understanding of concepts and follow up plan. Specific signs and symptoms that would indicate the need for higher level of care were discussed in detail warranting prompt ER evaluation. Saniya Francis APRN.IRAJ CNOV Observed: 02/05/2018 Status: COMPLETED Source: [place] 9:45 AM [facility] REPOSITORY Office Visit (WSTR) JULIAN CLARKDI ([id number]) 1990 F Date Time Provider Department 02/05/18 9:45 AM SANIYA FRANCIS (IRAJ) WSTR During your visit today, we recorded the following information about you: Temperature Pulse Respiration Blood pressure 98.1 degrees 76/minute 16/minute 112/72 Weight 78.5 kg Saniya Francis (Iraj) 02/05/2018 10:12 AM Signed Subjective HPI HPI Arleen Clark is a 27 year old female who presents today for CC of sore throat This started over the past week. She is also having ear pain. Symptoms are worsened by swallowing She has tried tylenol with slight relief. 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 Social History Marital status: Spouse name: Years of education: Number of children: Social History Main Topics Smoking status: Never Smoker Smokeless tobacco: Never Used Alcohol use: No Review of Systems Constitutional: Negative. Negative for chills, fever and malaise/fatigue. HENT: Positive for congestion, ear pain, sinus pain and sore throat. Respiratory: Negative for cough, sputum production, shortness of breath and wheezing. Cardiovascular: Negative for chest pain. Musculoskeletal: Positive for myalgias. Skin: Negative for rash. Neurological: Negative for headaches. Objective Physical Exam Constitutional: She is well-developed, well-nourished, and in no distress. HENT: Head: Normocephalic and atraumatic. Right Ear: External ear and ear canal normal. Tympanic membrane is bulging. Tympanic membrane is not injected, not erythematous and not retracted. A middle ear effusion (serous) is present. Right ear hemotympanum: bulging. Left Ear: External ear and ear canal normal. Tympanic membrane is bulging. Tympanic membrane is not injected, not erythematous and not retracted. A middle ear effusion (serous) is present. Nose: Mucosal edema and rhinorrhea present. Right sinus exhibits maxillary sinus tenderness. Right sinus exhibits no frontal sinus tenderness. Left sinus exhibits maxillary sinus tenderness. Left sinus exhibits no frontal sinus tenderness. Mouth/Throat: Uvula is midline and mucous membranes are normal. Posterior oropharyngeal erythema present. No oropharyngeal exudate, posterior oropharyngeal edema or tonsillar abscesses. Clear thick post nasal drainage Eyes: Conjunctivae and EOM are normal. Pupils are equal, round, and reactive to light. Neck: Normal range of motion. Cardiovascular: Normal rate, regular rhythm and normal heart sounds. Pulmonary/Chest: Effort normal and breath sounds normal. No respiratory distress. She has no wheezes. She has no rales. Lymphadenopathy: Head (right side): No submental, no submandibular, no tonsillar, no preauricular and no posterior auricular adenopathy present. Head (left side): No submental, no submandibular, no tonsillar, no preauricular and no posterior auricular adenopathy present. She has no cervical adenopathy. Right cervical: No posterior cervical adenopathy present. Left cervical: No posterior cervical adenopathy present. Right: No supraclavicular adenopathy present. Left: No supraclavicular adenopathy present. Skin: Skin is warm and dry. Psychiatric: Affect normal. Nursing note and vitals reviewed. ASSESSMENT/PLAN: 1. URI with cough and congestion - ICD9: 465.9, ICD10: J06.9 (primary diagnosis) - Discussed viral etiology and rationale for treatment. You need to rest as much as possible. Motrin or Tylenol as needed for fever or pain. Salt water gargles, chloraseptic spray or lozenges as needed for sore throat. Nasal saline irrigation at least 2 x day. Drink at least 8 glasses of fluids per day that aren't caffeinated. Eat a nutritious diet. Use a humidifier in your room at night. DO NOT take any other OTC cough or cold medication while taking the prescription Bromfed DM. It is ok to take an OTC pain reliever/fever tool design drafter though such as advil or tylenol as needed. 2. Sore throat - ICD9: 462, ICD10: J02.9 - suspect viral - Rapid Strep negative in the office today - overnight throat culture pending, Only call if Strep culture is positive. - Discussed supportive care treatment with fluids, rest and analgesia. - The patient may also use warm salt water gargles, throat lozenges and/or OTC throat spray as needed. - The patient should follow up in one week if symptoms persist or worsen - Call back if drooling, increased temperature, symptoms of dehydration and/or still sick in one week - GROUP A STREPTOCOCCUS BY PCR - RAPID STREP TEST B/O * Seek medical care immediately, call 911, go to ER if you have chest pain, difficulty breathing, shortness of breath, inability to swallow. Diagnosis and treatment plan were discussed and questions were answered to the patient's satisfaction. Pt acknowledged understanding of concepts and follow up plan. Specific signs and symptoms that would indicate the need for higher level of care were discussed in detail warranting prompt ER evaluation. Saniya Francis APRN.Saniya Parker ([facility]) 02/05/2018 10:00 AM Signed ASSESSMENT/PLAN: 1. URI with cough and congestion - ICD9: 465.9, ICD10: J06.9 (primary diagnosis) - Discussed viral etiology and rationale for treatment. You need to rest as much as possible. Motrin or Tylenol as needed for fever or pain. Salt water gargles, chloraseptic spray or lozenges as needed for sore throat. Nasal saline irrigation at least 2 x day. Drink at least 8 glasses of fluids per day that aren't caffeinated. Eat a nutritious diet. Use a humidifier in your room at night. DO NOT take any other OTC cough or cold medication while taking the prescription Bromfed DM. It is ok to take an OTC pain reliever/fever tool design drafter though such as advil or tylenol as needed. 2. Sore throat - ICD9: 462, ICD10: J02.9 - suspect viral - Rapid Strep negative in the office today - overnight throat culture pending, Only call if Strep culture is positive. - Discussed supportive care treatment with fluids, rest and analgesia. - The patient may also use warm salt water gargles, throat lozenges and/or OTC throat spray as needed. - The patient should follow up in one week if symptoms persist or worsen - Call back if drooling, increased temperature, symptoms of dehydration and/or still sick in one week - GROUP A STREPTOCOCCUS BY PCR - RAPID STREP TEST B/O * Seek medical care immediately, call 911, go to ER if you have chest pain, difficulty breathing, shortness of breath, inability to swallow. Referring Provider: SELF [200] Allergies As of Date: 02/05/2018 Noted Allergy Reaction PENICILLINS 07/04/2014 2 - Rash Date Reviewed: 02/05/2018 Reviewed by: Saniya Francis ([facility]) - Fully Assessed Reason for Visit: Sore Throat [200] Cmt: bodyaches x 1 week, bilateral ear pain Reason For Visit History Recorded Primary Visit Diagnosis:URI with cough and congestion [J06.9] Other Visit Diagnosis:Sore throat [J02.9] Order(s):GROUP A STREPTOCOCCUS BY PCR [SQGASPCR] Order #: [id number] RAPID STREP TEST B/O [2247662] Order #: [id number] predniSONE (DELTASONE) 20 mg tabletTake 1 tablet by mouth once daily for 3 days.Disp: 3 tabletRfl: 0 Msqyeryrmumlilg-Ixuxiztyu-JT (BROMFED DM) 2-30-10 mg/5 mL syrupTake 5-10 ml po q6h prnDisp: 120 mLRfl: 0 Prescriptions as of 02/05/2018 Sig: PREDNISONE 20 MG TABLET Take 1 tablet by mouth once d* BROMPHENIRAMINE-PSEUDOEPHEDRI* Take 5-10 ml po q6h prn FLUOXETINE 20 MG CAPSULE Take 20 mg by mouth once blaine* SUCRALFATE 100 MG/ML ORAL TERSA* Take 10 mL by mouth before me* FLUCONAZOLE 100 MG TABLET Take 100 mg by mouth once eac* Problem List As Of Date 02/05/2018 Noted Resolved Heart murmur [R01.1] INVALID FOR* Palpitations [R00.2] INVALID FOR* PAC (premature atrial contraction) [I49.1] INVALID FOR* Non-rheumatic tricuspid valve insufficiency [I3*INVALID FOR* Other instructions from your clinician: ASSESSMENT/PLAN: 1. URI with cough and congestion - ICD9: 465.9, ICD10: J06.9 (primary diagnosis) - Discussed viral etiology and rationale for treatment. You need to rest as much as possible. Motrin or Tylenol as needed for fever or pain. Salt water gargles, chloraseptic spray or lozenges as needed for sore throat. Nasal saline irrigation at least 2 x day. Drink at least 8 glasses of fluids per day that aren't caffeinated. Eat a nutritious diet. Use a humidifier in your room at night. DO NOT take any other OTC cough or cold medication while taking the prescription Bromfed DM. It is ok to take an OTC pain reliever/fever tool design drafter though such as advil or tylenol as needed. 2. Sore throat - ICD9: 462, ICD10: J02.9 - suspect viral - Rapid Strep negative in the office today - overnight throat culture pending, Only call if Strep culture is positive. - Discussed supportive care treatment with fluids, rest and analgesia. - The patient may also use warm salt water gargles, throat lozenges and/or OTC throat spray as needed. - The patient should follow up in one week if symptoms persist or worsen - Call back if drooling, increased temperature, symptoms of dehydration and/or still sick in one week - GROUP A STREPTOCOCCUS BY PCR - RAPID STREP TEST B/O * Seek medical care immediately, call 911, go to ER if you have chest pain, difficulty breathing, shortness of breath, inability to swallow. Prescriptions ordered this encounter Disp Refills Start End PREDNISONE 20 MG TABLET 3 ta* 0 02/05/2018 02/08/2018 Route: ORAL Sig: Take 1 tablet by mouth once daily for 3 days. KGQVHASMIPSTJAE-JFXQUQETSURISUS-JR 2* 120 * 0 02/05/2018 Sig: Take 5-10 ml po q6h prn Medications Discontinued During This Encounter predniSONE (DELTASONE) 20 mg tablet 4 ta* 0 08/24/2015 02/05/2018 Route: ORAL Sig: Take 1 tablet by mouth once daily. Take daily with food. Disc: Course of therapy completed Encounter Status:Closed by SANIYA FRANCIS CNP on 02/05/18 PROGRESS Observed: 10/26/2017 Status: COMPLETED Source: [place] 1:11 PM [facility] REPOSITORY HNO ID: [id number] Author: Kip Bowen) Lisa Service: (none) Author Type: Nurse Practitioner Type: Progress Notes Filed: 10/26/2017 5:05 PM Note Text: HPI Patient is a 26 year old female here today with a 3 day history of cough, body aches, and fever. OTC with some relief. No other concerns at this time. Review of Systems Constitutional: Positive for chills, fever and malaise/fatigue. HENT: Positive for congestion, ear pain and sore throat. Respiratory: Positive for cough. Negative for sputum production, shortness of breath and wheezing. Cardiovascular: Negative. Gastrointestinal: Negative for nausea and vomiting. Musculoskeletal: Negative for myalgias. Neurological: Positive for headaches. Endo/Heme/Allergies: Negative for environmental allergies. All other systems reviewed and are negative. No past medical history on file. No past surgical history on file. ALLERGIES Penicillins MEDICATIONS predniSONE (DELTASONE) 20 mg tablet Take 1 tablet by mouth twice daily for 3 days. FLUoxetine (PROZAC) 20 mg capsule Take 20 mg by mouth once daily. sucralfate (CARAFATE) 100 mg/mL suspension Take 10 mL by mouth before meals and at bedtime. (560cc=2wks) fluconazole (DIFLUCAN) 100 mg tablet Take 100 mg by mouth once each week. predniSONE (DELTASONE) 20 mg tablet Take 1 tablet by mouth once daily. Take daily with food. No family history on file. Social History Substance Use Topics - Smoking status: Never Smoker - Smokeless tobacco: Never Used - Alcohol use No BP 130/68 Pulse 80 Temp 37.3 ?C (99.1 ?F) (Tympanic) Wt 79.8 kg (176 lb) SpO2 97% Physical Exam Constitutional: She is oriented to person, place, and time and well-developed, well-nourished, and in no distress. Vital signs are normal. She appears not dehydrated. She has a sickly appearance. No distress. Mildly ill. HENT: Head: Normocephalic and atraumatic. Right Ear: Tympanic membrane, external ear and ear canal normal. Left Ear: Tympanic membrane, external ear and ear canal normal. Nose: Mucosal edema and rhinorrhea present. Right sinus exhibits no maxillary sinus tenderness and no frontal sinus tenderness. Left sinus exhibits no maxillary sinus tenderness and no frontal sinus tenderness. Mouth/Throat: Uvula is midline, oropharynx is clear and moist and mucous membranes are normal. No oropharyngeal exudate, posterior oropharyngeal edema or posterior oropharyngeal erythema. Neck: Neck supple. Cardiovascular: Normal rate, regular rhythm and normal heart sounds. Pulmonary/Chest: Effort normal and breath sounds normal. She has no wheezes. She has no rales. Lymphadenopathy: Head (right side): No submental, no submandibular and no tonsillar adenopathy present. Head (left side): No submental, no submandibular and no tonsillar adenopathy present. She has no cervical adenopathy. Submandibular fullness. Neurological: She is alert and oriented to person, place, and time. Skin: Skin is warm and dry. She is not diaphoretic. Nursing note and vitals reviewed. ASSESSMENT/PLAN: 1. Flu-like symptoms - ICD9: 780.99, ICD10: R68.89 - Encourage rest and fluids - Ibuprofen or Tylenol prn (do not use Ibuprofen with Steroid) - Steroid burst - PREDNISONE 20 MG TABLET Prescription instructions reviewed with patient as applicable. Patient advised if symptoms do not improve or if symptoms worsen sooner, to contact their primary care physician. Potential red flag symptoms discussed with the patient. Reviewed appropriate action plan to take if red flag symptoms occur. Patient agreeable to treatment plan. IRAJ Ang Observed: 10/26/2017 Status: COMPLETED Source: [place] 1:00 PM [facility] REPOSITORY Office Visit (UCWSTR) ARLEEN CLARK ([id number]) 1990 F Date Time Provider Department 10/26/17 1:00 PM KIP GONZALEZ (IRAJ) [facility] During your visit today, we recorded the following information about you: Temperature Pulse Blood pressure Weight 99.1 degrees 80/minute 130/68 79.8 kg Kip Gonzalez CNP 10/26/2017 5:05 PM Signed HPI Patient is a 26 year old female here today with a 3 day history of cough, body aches, and fever. OTC with some relief. No other concerns at this time. Review of Systems Constitutional: Positive for chills, fever and malaise/fatigue. HENT: Positive for congestion, ear pain and sore throat. Respiratory: Positive for cough. Negative for sputum production, shortness of breath and wheezing. Cardiovascular: Negative. Gastrointestinal: Negative for nausea and vomiting. Musculoskeletal: Negative for myalgias. Neurological: Positive for headaches. Endo/Heme/Allergies: Negative for environmental allergies. All other systems reviewed and are negative. No past medical history on file. No past surgical history on file. ALLERGIES Penicillins MEDICATIONS predniSONE (DELTASONE) 20 mg tablet Take 1 tablet by mouth twice daily for 3 days. FLUoxetine (PROZAC) 20 mg capsule Take 20 mg by mouth once daily. sucralfate (CARAFATE) 100 mg/mL suspension Take 10 mL by mouth before meals and at bedtime. (560cc=2wks) fluconazole (DIFLUCAN) 100 mg tablet Take 100 mg by mouth once each week. predniSONE (DELTASONE) 20 mg tablet Take 1 tablet by mouth once daily. Take daily with food. No family history on file. Social History Substance Use Topics - Smoking status: Never Smoker - Smokeless tobacco: Never Used - Alcohol use No BP 130/68 Pulse 80 Temp 37.3 ?C (99.1 ?F) (Tympanic) Wt 79.8 kg (176 lb) SpO2 97% Physical Exam Constitutional: She is oriented to person, place, and time and well-developed, well-nourished, and in no distress. Vital signs are normal. She appears not dehydrated. She has a sickly appearance. No distress. Mildly ill. HENT: Head: Normocephalic and atraumatic. Right Ear: Tympanic membrane, external ear and ear canal normal. Left Ear: Tympanic membrane, external ear and ear canal normal. Nose: Mucosal edema and rhinorrhea present. Right sinus exhibits no maxillary sinus tenderness and no frontal sinus tenderness. Left sinus exhibits no maxillary sinus tenderness and no frontal sinus tenderness. Mouth/Throat: Uvula is midline, oropharynx is clear and moist and mucous membranes are normal. No oropharyngeal exudate, posterior oropharyngeal edema or posterior oropharyngeal erythema. Neck: Neck supple. Cardiovascular: Normal rate, regular rhythm and normal heart sounds. Pulmonary/Chest: Effort normal and breath sounds normal. She has no wheezes. She has no rales. Lymphadenopathy: Head (right side): No submental, no submandibular and no tonsillar adenopathy present. Head (left side): No submental, no submandibular and no tonsillar adenopathy present. She has no cervical adenopathy. Submandibular fullness. Neurological: She is alert and oriented to person, place, and time. Skin: Skin is warm and dry. She is not diaphoretic. Nursing note and vitals reviewed. ASSESSMENT/PLAN: 1. Flu-like symptoms - ICD9: 780.99, ICD10: R68.89 - Encourage rest and fluids - Ibuprofen or Tylenol prn (do not use Ibuprofen with Steroid) - Steroid burst - PREDNISONE 20 MG TABLET Prescription instructions reviewed with patient as applicable. Patient advised if symptoms do not improve or if symptoms worsen sooner, to contact their primary care physician. Potential red flag symptoms discussed with the patient. Reviewed appropriate action plan to take if red flag symptoms occur. Patient agreeable to treatment plan. Kip Gonzalez CNP Referring Provider: SELF [200] Allergies As of Date: 10/26/2017 Noted Allergy Reaction PENICILLINS 07/04/2014 2 - Rash Date Reviewed: 10/26/2017 Reviewed by: Inglish (Underground Heavy Equipment Operator) Kaput - Fully Assessed Reason for Visit: Chest Congestion [236] Cmt: cough and fever x 3 days Primary Visit Diagnosis:Flu-like symptoms [R68.89] Order(s):predniSONE (DELTASONE) 20 mg tabletTake 1 tablet by mouth twice daily for 3 days.Disp: 6 tabletRfl: 0 Prescriptions as of 10/26/2017 Sig: PREDNISONE 20 MG TABLET Take 1 tablet by mouth twice * FLUOXETINE 20 MG CAPSULE Take 20 mg by mouth once blaine* SUCRALFATE 100 MG/ML ORAL TRESA* Take 10 mL by mouth before me* FLUCONAZOLE 100 MG TABLET Take 100 mg by mouth once eac* PREDNISONE 20 MG TABLET Take 1 tablet by mouth once d* Medication notes this encounter FLUOXETINE 20 MG CAPSULE >> Jaki Antunez Ma 10/26/2017 1:03 PM >> JAKI ANTUNEZ MA SunOct 26, 2017 1:03 PM done SUCRALFATE 100 MG/ML ORAL SUSPENSION >> Jaki Antunez Ma 10/26/2017 1:03 PM >> JAKI NATUNEZ MA SunOct 26, 2017 1:03 PM done Problem List As Of Date 10/26/2017 Noted Resolved Heart murmur [R01.1] INVALID FOR* Palpitations [R00.2] INVALID FOR* PAC (premature atrial contraction) [I49.1] INVALID FOR* Non-rheumatic tricuspid valve insufficiency [I3*INVALID FOR* Prescriptions ordered this encounter Disp Refills Start End PREDNISONE 20 MG TABLET 6 ta* 0 10/26/2017 10/29/2017 Route: ORAL Sig: Take 1 tablet by mouth twice daily for 3 days. Encounter Status:Closed by KIP GONZALEZ CNP on 10/26/17 ALLERGIES ALLERGIES DATE TYPE / CODE NAME / CODE REACTION SEVERITY SOURCE 09/14/2018 Drug Penicillins/[id number] Hives Unknown [facility] Allergy/416 0476(RXNORM) [facility] [id number]([facility] ED CT) Repository 07/04/2014 Drug PENICILLINS RASH [facility] Class/[address] [place] 1003(SNOMED Repository CT) ENCOUNTERS ENCOUNTERS ADMIT/DISCHARGE ACCOUNT ADMITTING ENCOUNTER LOCATION SOURCE NUMBER CLASS 09/14/2018/09/15/20 [id number] Emergency [facility] ing:ED Repository 09/10/2018/09/11/20 [id number] Ambulatory [address] Repository 09/07/2018/09/09/20 [id number] Ambulatory [address] Repository 07/02/2018/07/03/20 [id number] Ambulatory [address] Repository 05/23/2018 [id number] [facility] Rep[facility] 05/02/2018/05/02/20 [id number] Ambulatory [address] Repository 02/05/2018/02/07/20 [id number] Ambulatory [address] Repository 10/26/2017/10/26/19 [id number] Ambulatory [address] Repository PAYERS PAYERS ENCOUNTER GUARANTOR PAYER SUBSCRIBER SOURCE 09/14/2018 ARLEEN Fisher Primary [place] [id number] Insurance:MEDICAL FigueroaDOB: [facility] [id number] Number: Repository [id number]: [phone] [id number] [phone] () Date:[id number] [address] [address]YU: 09/14/2018 Secondary NOT GIVENUNK [facility] Insurance:SELF PAY [facility] Number: Effective Repository Date:2018-09-14 05/23/2018 ARLEEN Fisher Primary BRU[place] [id number] Insurance:MEDICAL FIGUEROADOB: [facility] [id number] Number: Repository [id number]: [phone] [id number] [phone] () Date:[id number] [address] [address]MA: 05/23/2018 Secondary NOT GIVENUNK [place] Insurance:SELF PAY [facility] Number: Effective Repository Date:2018-05-23
== END 2018-09-15 01:10 | disposition home or self-care (01) ==
LOC: ED 09-15 00:13
PROVIDERS: Emergency Provider Emergency Medicine; Family Provider Family Medicine; PCP Family Medicine
DX: H10.9 Unspecified conjunctivitis (principal); H16.9 Unspecified keratitis
CPT/HCPCS: 99283

== ENCOUNTER → 2018-12-31 15:23 | Outpatient (CLI) | payer OTHER, SELFPAY ==
--- NOTE | 2018-12-31 16:00 | MRI_ITS ---
HISTORY: Burning in legs and arms, muscle pain and spasms, Paresthesias, urinary frequency EXAMINATION: MR Brain WO/W Contrast TECHNIQUE: Multiplanar and multisequence MR images of the brain were obtained without gadolinium. IV Contrast dosage and agent: 15 cc dotarem COMPARISON: None FINDINGS: Normal ventricles and normal liang-white matter differentiation. Normal diffusion scan. No intracranial mass, hemorrhage, or acute parenchymal abnormality. Posterior fossa and midline structures show no signal abnormality. No enhancing lesion or extra-axial fluid collection. Normal flow voids within the major vessels. The left vertebral artery is dominant. 1.2 cm retention cyst at the anterior roof of the right maxillary sinus. The mastoids appear clear. MRI/Brain W/WO Contrast IMPRESSION: 1. Normal MR brain without and with contrast 2. Right maxillary sinus 1.2 cm retention cyst. at 5205 Reported and signed by: Andrew Rodney MD Electronically Signed: Andrew Rodney, at 4:16 EDT Tel , Service support ,
--- NOTE | 2018-12-31 16:45 | MRI_ITS ---
STUDY: MRI CERVICAL SPINE WITH AND WITHOUT CONTRAST REASON FOR EXAM: Female, 28 years old. Burning in legs and arms, muscle pain and spasms, Paresthesias, urinary frequency. TECHNIQUE: Standardized fat and water weighted pulse sequences were obtained in the sagittal and axial following administration of 15 IV Dotarem. COMPARISON: None FINDINGS: Normal foramen magnum and brainstem-cervical cord junction. Normal craniovertebral junction. Normal anterior atlantoaxial articulation. Normal odontoid process. Normal cervical lordosis. Normal vertebral bodies and posterior osseous elements. C2-3: Normal endplates. Normal disc height, signal and morphology. Normal central canal and intervertebral neural foramina. C3-4: Normal endplates. Normal disc height, signal and morphology. Normal central canal and intervertebral neural foramina. C4-5: Normal endplates. Normal disc height, signal and morphology. Normal central canal and intervertebral neural foramina. C5-6: There is minimal disc space narrowing and endplate spondylosis. There is no significant disc herniation, central canal or foraminal stenosis. C6-7: There is minimal disc space narrowing and endplate spondylosis. There is no significant disc herniation, central canal or foraminal stenosis. C7-T1: Normal endplates. Normal disc height, signal and morphology. Normal central canal and intervertebral neural foramina. Normal cervical cord. Normal visualized soft tissue structures. MRI/Spine Cervical W/WO Contrast IMPRESSION: Normal cervical cord. Electronically Signed: Dmitriy Michael MD at 15:21 EDT Tel , Service support ,
== END ==
PROVIDERS: Family Provider Family Medicine; PCP Family Medicine; Referring Provider Family Medicine; Visit Provider Family Medicine
DX: R20.2 Paresthesia of skin (principal); R53.1 Weakness; R42 Dizziness and giddiness; R39.15 Urgency of urination
CPT/HCPCS: 70553; 72156; A9575

== ENCOUNTER → 2019-01-23 | Outpatient (CLI) | payer OTHER, SELFPAY ==
[2019-01-23 15:46] LABS: Chlamydia Trachomatis by PCR Negative (Negative); Neisserai gonorrhoeae by PCR Negative (Negative); Probe Check PASS; Sample Adequacy Control PASS; Specimen Processing Control PASS
== END | disposition home or self-care (01) ==
LOC: WOBLAB 11:12
PROVIDERS: Family Provider Family Medicine; PCP Family Medicine; Visit Provider Obstetrics & Gynecology
DX: Z11.3 Encounter for screening for infections with a predominantly sexual mode of transmission (principal)
CPT/HCPCS: 87491; 87591

== ENCOUNTER → 2019-02-06 16:02 | Outpatient (CLI) | payer OTHER, SELFPAY ==
[2019-02-06 18:00] LABS: Absolute Lymphocyte Count 1.41 X10^3/ul (0.83-4.51); Basophil# 0.01 X10^3/uL; Basophil% 0.2 % (0-1); Color, Urine Yellow (Yellow); Eosinophil# 0.07 X10^3/uL; Eosinophils% 1.2 % (0-5); Glucose, Dipstick Normal (Normal); Hematocrit 38.5 % (37-47); Ketone-Dipstick Negative (Negative); Leukocyte Esterase-Dipstick Negative /ul (Negative); Lymphocyte # 1.41 X10^3/ul (4.0); Lymphocyte % 23.7 % (19-41); Mean Corp Hgb Conc 33.8 g/gl (32-36); Mean Corpuscular Hgb 29.5 pg (27.0-32.0); Mean Corpuscular Volume 87.5 fL (81-99); Monocyte# 0.42 X10^3/uL; Neutrophil # 4.04 X10^3/uL (2.7-7.7); Neutrophil % 67.7 % (47-70); Nitrite-Dipstick Negative (Negative); Occult Blood-Urine Negative /ul (Negative); Platelet Count 249 K/mm3 (150-450); Protein-Dipstick Negative (Negative); RBC Distribution Width CV 12.3 % (11.6-14.6); RBC Distribution Width SD 38.5 fl (35.1-43.9); Urine Bilirubin Dipstick Negative (Negative); Urine Clarity Clear (Clear); Urine Urobilinogen Normal (Normal)
[2019-02-06 18:02] LABS: POSITIVE COUNT NO; POSITIVE DIFFERENTIAL NO; POSITIVE MORPHOLOGY NO
[2019-02-06 18:15] LABS: Thyroid Stim Hormone (TSH) 0.78 uIU/mL (0.358-3.74)
[2019-02-06 18:45] LABS: Amphetamine Urine VISTA NEGATIVE (<1000 ng/mL); Barbiturate Urine VISTA NEGATIVE (< 200 ng/mL); Benzodiazepine Urine VISTA NEGATIVE (< 200 ng/mL); Cocaine Urine VISTA NEGATIVE (< 300 ng/mL); Ecstacy Urine VISTA NEGATIVE (< 500 ng/mL); Methadone Urine VISTA NEGATIVE (< 300 ng/mL); PCP Urine VISTA NEGATIVE (< 25 ng/mL); THC Urine VISTA NEGATIVE (< 50 ng/mL); Vista UDS pH Range 6
[2019-02-06 18:55] LABS: HIV - WCH Non-Reactive (Nonreactive); Rubella IgG 82.6 IU/mL
[2019-02-07 03:40] LABS: Prenatal RPR NONREACTIVE (NONREACTIVE)
[2019-02-10 13:40] LABS: HEPATITIS B SURFACE AG Negative (Negative); Hep C Antibodies <0.1 s/co ratio (0.0-0.9)
== END ==
PROVIDERS: Visit Provider Obstetrics & Gynecology
DX: Z34.81 Encounter for supervision of other normal pregnancy, first trimester (principal)
CPT/HCPCS: 36415; 80307; 81002; 84443; 85025; 86703; 86762; 86803; 87340

== ENCOUNTER → 2019-02-18 | Outpatient (CLI) | payer OTHER, SELFPAY ==
[2019-02-18 15:57] LABS: Absolute Lymphocyte Count 1.37 X10^3/ul (0.83-4.51); Absolute Neutrophil Count 4.9 X10^3/uL (2.0-7.7); Eosinophil# 0.07 X10^3/uL; Hematocrit 34.7 % (37-47); Hemoglobin 11.8 g/dl (12.0-15.0); Lymphocyte # 1.37 X10^3/ul (4.0); Lymphocyte % 20.3 % (19-41); Mean Corpuscular Hgb 29.9 pg (27.0-32.0); Mean Corpuscular Volume 87.8 fL (81-99); Mean Platelet Vol. 9.8 fl (6.2-12.0); Monocyte# 0.42 X10^3/uL; Monocyte% 6.2 % (0-10); Neutrophil # 4.88 X10^3/uL (2.7-7.7); Neutrophil % 72.4 % (47-70); Platelet Count 194 K/mm3 (150-450); RBC Distribution Width CV 12.5 % (11.6-14.6); Red Blood Count 3.95 M/mm3 (4.2-5.4); White Blood Count 6.8 K/mm3 (4.4-11.0)
[2019-02-18 15:59] LABS: POSITIVE COUNT NO; POSITIVE DIFFERENTIAL NO; POSITIVE MORPHOLOGY NO
[2019-02-18 16:26] LABS: ALB/GLOB Ratio 0.9 RATIO (0.9-2.4); AST(SGOT) 10 U/L (15-37); Alanine Aminotransfer ALT/SGPT 16 U/L (13-56); Albumin, Serum 3.7 g/dL (3.2-5.0); Alkaline Phosphatase 34 U/L (45-117); Anion Gap 9 (5-15); BUN 9 mg/dL (7-18); BUN/Creat Ratio 13.9 RATIO (10-20); CRP < 2.90 mg/L (0.0-3.0); Calcium,Total 8.7 mg/dL (8.5-10.1); Chloride 105 mmol/L (98-107); Creatinine, Serum 0.65 mg/dL (0.55-1.02); EST Glomerular Filtration Rate 117 mL/min (>60); Est Glom Filt Rate - Afr Amer 141 mL/min (>60); Glucose 88 mg/dL (74-106); Potassium 3.5 mmol/L (3.5-5.1); Protein, Total 7.7 g/dL (6.4-8.2); Rheumatoid Factor < 10.0 IU/mL (<15); Sodium Level 138 mmol/L (136-145)
[2019-02-18 16:56] LABS: Color, Urine Yellow (Yellow); Glucose, Dipstick Normal (Normal); Ketone-Dipstick Negative (Negative); Leukocyte Esterase-Dipstick 25 /ul (Negative); Nitrite-Dipstick Negative (Negative); Occult Blood-Urine Negative /ul (Negative); Protein-Dipstick Negative (Negative); Urine Bilirubin Dipstick Negative (Negative); Urine Clarity Clear (Clear); Urine Urobilinogen Normal (Normal)
[2019-02-20 12:07] LABS: RNP Ab 0.2 AI (0.0-0.9); SJOGREN'S Anti-SS-A test < 0.2 AI (0.0-0.9); SJOGREN'S Anti-SS-B test < 0.2 AI (0.0-0.9); Smith Ab <0.2 AI (0.0-0.9)
[2019-02-20 15:18] LABS: Anti-dsDNA Ab <1 IU/mL (0-9)
[2019-02-25 16:09] LABS: Complement C3 124 mg/dL (82-167); Cytoplasmic Ab (C-ANCA) <1:20 titer (Neg:<1:20); PROEL- A/G Ratio 1.2 (0.7-1.7); PROEL- Albumin 3.8 g/dL (2.9-4.4); PROEL- Alpha-1 Globulin 0.3 g/dL (0.0-0.4); PROEL- Alpha-2 Globulin 0.7 g/dL (0.4-1.0); PROEL- Gamma Globulin 1.2 g/dL (0.4-1.8); PROEL- Globulin, Total 3.1 g/dL (2.2-3.9); PROEL- TOTAL PROTEIN 6.9 g/dL (6.0-8.5); Thyroid Peroxidase AB 9 IU/mL (0-34)
[2019-02-25 16:38] LABS: Perinuclear Ab (P-ANCA) <1:20 titer (Neg:<1:20); Thyroglobulin Antibody < 1.0 IU/mL (0.0-0.9)
== END | disposition home or self-care (01) ==
LOC: LAB.FUTURE 14:54
PROVIDERS: Family Provider Family Medicine; PCP Family Medicine
DX: R76.8 Other specified abnormal immunological findings in serum (principal); D89.1 Cryoglobulinemia
CPT/HCPCS: 36415; 80053; 81002; 82595; 84165; 85025; 86140; 86160; 86225; 86235; 86256; 86376; 86431; 86800

== ENCOUNTER → 2019-04-04 | Outpatient (CLI) | payer OTHER, SELFPAY ==
[2019-04-07 20:06] LABS: AFP MoM Value 1.34 (.); AFP Value-EIA 37.2 ng/mL (.); Comment Report (.); DIA MoM Value 1.21 (.); DIA Value-EIA 198.06 pg/mL (.); DSR (By Age) 871 (.); DSR (Second Trimester) 10000 (.); Gestat. Age Based On As provided (.); Gestational Age 15.6 WEEKS (.); Insulin Dep Diabetes No (.); Maternal Age At EDD 27.8 yr (.); hCG MoM 0.57 (.); hCG Value 24923 mIU/mL (.)
== END | disposition home or self-care (01) ==
LOC: WOBLAB 09:50
PROVIDERS: Family Provider Family Medicine; PCP Family Medicine; Visit Provider Obstetrics & Gynecology
DX: Z34.82 Encounter for supervision of other normal pregnancy, second trimester (principal)
CPT/HCPCS: 36415; 82105; 82677; 84702

== ENCOUNTER → 2019-04-14 | Outpatient (CLI) | payer OTHER, SELFPAY | END | disposition home or self-care (01) | LOC: LABSPEC 16:59 | PROVIDERS: Visit Provider Obstetrics & Gynecology | DX: O23.41 Unspecified infection of urinary tract in pregnancy, first trimester (principal); Z3A.00 Weeks of gestation of pregnancy not specified | CPT/HCPCS: 87086; 87088 ==

== ENCOUNTER → 2019-05-30 | Outpatient (CLI) | payer OTHER, SELFPAY | END | disposition home or self-care (01) | LOC: PSN 10:11 | PROVIDERS: Family Provider Family Medicine; PCP Family Medicine; Referring Provider Obstetrics & Gynecology; Visit Provider Obstetrics & Gynecology | DX: O99.412 Diseases of the circulatory system complicating pregnancy, second trimester (principal); R00.2 Palpitations; Z3A.00 Weeks of gestation of pregnancy not specified | CPT/HCPCS: 93225; 93226 ==

== ENCOUNTER → 2019-06-27 | Outpatient (CLI) | payer OTHER, SELFPAY ==
[2019-06-27 10:41] LABS: Hematocrit 34.5 % (37-47); Hemoglobin 11.5 g/dL (12.0-15.0); Mean Corp Hgb Conc 33.3 g/dL (32-36); Mean Corpuscular Hgb 31.9 pg (27.0-32.0); Mean Corpuscular Volume 95.6 fL (81-99); Mean Platelet Vol. 9.6 fl (6.2-12.0); Platelet Count 220 K/mm3 (150-450); RBC Distribution Width SD 41.9 fl (35.1-43.9); Red Blood Count 3.61 M/mm3 (4.2-5.4); White Blood Count 7.3 K/mm3 (4.4-11.0)
[2019-06-27 10:46] LABS: Glucose Challenge Gest 1H 50g 132 mg/dL (70-140)
== END | disposition home or self-care (01) ==
PROVIDERS: Visit Provider Obstetrics & Gynecology
DX: Z34.82 Encounter for supervision of other normal pregnancy, second trimester (principal)
CPT/HCPCS: 36415; 82950; 85027; 86850

== ENCOUNTER 2019-08-05 21:15 | Outpatient (CLI) | payer OTHER, SELFPAY ==
[2019-08-05 21:34] VITALS: BMI 32.1
[2019-08-05 22:06] LABS: Color, Urine Yellow (Yellow); Glucose, Dipstick Normal (Normal); Ketone-Dipstick Negative (Negative); Leukocyte Esterase-Dipstick Negative /ul (Negative); Nitrite-Dipstick Negative (Negative); Occult Blood-Urine Negative /ul (Negative); Protein-Dipstick Negative (Negative); Specific Gravity, Urine 1.005 (1.002-1.030); Urine Bilirubin Dipstick Negative (Negative); Urine Clarity Clear (Clear); Urine Urobilinogen Normal (Normal)
[2019-08-05 22:45] VITALS: RESP 18
--- NOTE | 2019-08-06 00:10 | OB.TRI.HP_ITS ---
History of Present Illness Date of Service: 08/05/19 Was patient seen by the physician?: No Reason For Visit: R/O LABOR Date of Service: 08/05/19 Final AMANDA: 09/20/19 Gestational age: 33 Weeks and 3 Days History of Present Illness: 28 yo female at 33 3/7 wk presents with CC of dec FM and irreg cramping, contractions. No vaginal bleeding. No UTI sx. No ROM. Allergies Latex, Natural Rubber Allergy (Verified 08/05/19 21:35) Other UTI Penicillins Allergy (Verified 08/05/19 21:36) Hives Laboratory Studies: Laboratory Tests 08/05/19 Range/Units 21:15 Urine Color Yellow (Yellow) Urine Clarity Clear (Clear) Urine pH 7.0 (5.0 - 8.0) Ur Specific [place] 1.005 (1.002-1.030) Urine Protein Negative (Negative) mg/dl Urine Glucose (UA) Normal (Normal) mg/dl Urine Ketones Negative (Negative) mg/dl Urine Occult Blood Negative (Negative) /ul Urine Nitrite Negative (Negative) Urine Bilirubin Negative (Negative) mg/dL Urine Urobilinogen Normal (Normal) mg/dl Ur Leukocyte Esterase Negative (Negative) /ul Physical Exam Vitals: Vital Signs Resp 18 08/05/19 22:45 NST - FHR Rate Baby A Baseline: 120-130 with accels to 150s quick variables to 110s Variability:: Moderate Accelerations:: 15 x 15 Decelerations:: Variable NST Reactive:: Yes, Appropriate for gestational age FHR Category:: Category I Uterine Activity:: mild, irreg UCs noted. Impression/Plan 33 3/7 wk Decreased movement Cramping UA neg False labor, mild irreg UCs noted Reactive NST Home to rest. continue po hydration. Tylenol prn Keep next ofc appt.
== END 2019-08-05 22:45 | disposition home or self-care (01) ==
LOC: WPOUT 21:18 → WP 21:18
PROVIDERS: Visit Provider Obstetrics & Gynecology
DX: O47.03 False labor before 37 completed weeks of gestation, third trimester (principal); Z3A.33 33 weeks gestation of pregnancy
CPT/HCPCS: 59025; 59050; 81002; 99218; G0378

== ENCOUNTER → 2019-08-22 15:23 | Outpatient (CLI) | payer OTHER, SELFPAY ==
[2019-08-05 21:34] VITALS: BMI 32.1
[2019-08-22 16:00] LABS: Hemoglobin 11.9 g/dL (12.0-15.0); Mean Corp Hgb Conc 33.1 g/dL (32-36); Mean Corpuscular Hgb 31.2 pg (27.0-32.0); Mean Corpuscular Volume 94.5 fL (81-99); Platelet Count 245 K/mm3 (150-450); RBC Distribution Width CV 12.8 % (11.6-14.6); RBC Distribution Width SD 43.9 fl (35.1-43.9); Red Blood Count 3.81 M/mm3 (4.2-5.4); White Blood Count 9.8 K/mm3 (4.4-11.0)
[2019-08-22 16:24] LABS: Protein, Urine (Random) < 6.0 mg/dL (<11.9)
[2019-08-22 16:26] LABS: ALB/GLOB Ratio 0.7 RATIO (0.9-2.4); AST(SGOT) 14 U/L (15-37); Alanine Aminotransfer ALT/SGPT 19 U/L (13-56); Albumin, Serum 3.1 g/dL (3.2-5.0); Alkaline Phosphatase 134 U/L (45-117); Anion Gap 8 (5-15); BUN 9 mg/dL (7-18); BUN/Creat Ratio 12.8 RATIO (10-20); Chloride 106 mmol/L (98-107); EST Glomerular Filtration Rate 106 mL/min (>60); Est Glom Filt Rate - Afr Amer 128 mL/min (>60); Globulin 4.4 g/dL (2.2-4.2); Glucose 82 mg/dL (74-106); Protein, Total 7.5 g/dL (6.4-8.2); Sodium Level 138 mmol/L (136-145); Uric Acid 4.2 mg/dL (2.6-6.0)
== END ==
PROVIDERS: Visit Provider Obstetrics & Gynecology
DX: O13.9 Gestational [pregnancy-induced] hypertension without significant proteinuria, unspecified trimester (principal)
CPT/HCPCS: 36415; 80053; 82570; 84156; 84550; 85027

== ENCOUNTER → 2019-08-23 16:17 | Outpatient (CLI) | payer OTHER, SELFPAY ==
[2019-08-05 21:34] VITALS: BMI 32.1
[2019-08-25 10:19] LABS: 24 Hour Urine Protein 182.8 mg/24HR (<150 MG/24HR); 24HR. UA Prot. Total Volume 2150 mL; Urine Protein (24 Hour) 8.5 mg/dL (<11.9)
== END ==
PROVIDERS: Referring Provider Obstetrics & Gynecology; Visit Provider Obstetrics & Gynecology
DX: O13.3 Gestational [pregnancy-induced] hypertension without significant proteinuria, third trimester (principal); Z3A.36 36 weeks gestation of pregnancy
CPT/HCPCS: 81050; 84156

== ENCOUNTER → 2019-08-25 15:39 | Outpatient (CLI) | payer OTHER, SELFPAY ==
[2019-08-05 21:34] VITALS: BMI 32.1
== END ==
PROVIDERS: Visit Provider Obstetrics & Gynecology
DX: Z36.85 Encounter for antenatal screening for Streptococcus B (principal)
CPT/HCPCS: 87081

== ENCOUNTER 2019-09-09 19:23 | Inpatient (IN) | payer OTHER, SELFPAY ==
[2019-09-09 19:36] VITALS: BMI 33.5
--- NOTE | 2019-09-09 19:40 | PCM.HPOB.BLA ---
History and Physical Date of Admission: 09/09/19 OB HISTORY AND PHYSICAL EXAMINATION History of this : 28 yo female Ab0 with EDC 09/20/2019 by Ultrasound, presents to Labor and Delivery for induction of labor due to PIH / gestational HTN at 38 3/7 wk EGA. care remarkable for - O NEG Rubella Immune GBS neg 1.) Palpitations - Holter neg 2.) Plans EPIDURAL in labor 3.) O NEGATIVE, 4.) WANTS msAFP, declines CF testing 5.) ALLERGIC to LATEX and PCN's!! 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 small fiber neruopathy Accidents - no injuries of consequence History of Abnormal PAPS - Denies Hospitalizations - None heart murmur; SURGICAL HISTORY: 1. [place] Teeth Removal, 2011 MENSTRUAL HISTORY: LMP Known?- Definite Amount/Duration - 5 days, Regularity - Regular, Frequency - monthly days, LMP - 12/14/18, Age Onset Menarche - 12 PAST PREGNANCIES: Total Pregnancies - 1; Full Term Pregnancies - 0; Premature - 0; Abortions, Induced - 0; Abortions, Spontaneous - 0; Ectopics - 0; Multiple Births - 0; Living Children - 0 FAMILY HISTORY: Father - Ulcerative colitis; Mother - FH: Diabetes mellitus type 2; Mother - Carcinoma of breast; Maternal Grandparent - Parkinsonism; Maternal Grandparent - Unknown Disease; Maternal Grandparent - Age 57, FH: Cancer of colon; SOCIAL HISTORY: Alcohol Use - denies drinking Smoking - denies smoking Diet - balanced Diet Lifestyle - moderate stress lifestyle Exercise - regular Seat Belt Use - always Employer - [employer] 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 Illicit Drug Use - denies use of street drugs Sexual Activity - 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 Spouse-Sig Other Name - Andrew Clark Spouse-Sig Other 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 Category I tracing with irregular UCs. Impression /Plan: Intrauterine . Admit for PIH /gestational HTN induction at 38 4/7 wk EGA Plan Cytotec AROM Pitocin.
[2019-09-09] MEDS: Lactated Ringers 1,000 ML 50 ML IV (20:00)
[2019-09-09 20:16] LABS: Absolute Lymphocyte Count 1.61 X10^3/uL (0.83-4.51); Absolute Neutrophil Count 7.7 X10^3/uL (2.0-7.7); Basophil# 0.02 X10^3/uL; Basophil% 0.2 % (0-1); Eosinophil# 0.05 X10^3/uL; Eosinophils% 0.5 % (0-5); Hemoglobin 11.6 g/dL (12.0-15.0); Lymphocyte # 1.61 X10^3/ul (4.0); Lymphocyte % 16.2 % (19-41); Mean Corp Hgb Conc 34.1 g/dL (32-36); Mean Corpuscular Hgb 31.4 pg (27.0-32.0); Mean Corpuscular Volume 92.1 fL (81-99); Mean Platelet Vol. 10.2 fl (6.2-12.0); Monocyte# 0.52 X10^3/uL; Monocyte% 5.2 % (0-10); NRBC Flagged by Analyzer 0 % (0-5); Neutrophil # 7.68 X10^3/uL (2.7-7.7); Neutrophil % 77.6 % (47-70); Platelet Count 223 K/mm3 (150-450); RBC Distribution Width CV 12.7 % (11.6-14.6); RBC Distribution Width SD 42.5 fl (35.1-43.9); Red Blood Count 3.69 M/mm3 (4.2-5.4); White Blood Count 9.9 K/mm3 (4.4-11.0)
[2019-09-09 20:34] LABS: Prothrombin Time (Protime)PT. 12.7 SECONDS (11.7-14.9)
[2019-09-09 20:43] LABS: Partial Thromboplast Time 25.8 Seconds (24.1-36.2)
[2019-09-09 20:44] LABS: AST(SGOT) 16 U/L (15-37); Alanine Aminotransfer ALT/SGPT 16 U/L (13-56); Creatinine, Serum 0.75 mg/dL (0.55-1.02); EST Glomerular Filtration Rate 98 mL/min (>60); Est Glom Filt Rate - Afr Amer 118 mL/min (>60); Estimated Creatinine Clearance 109.57 ml/min; Uric Acid 5.2 mg/dL (2.6-6.0)
[2019-09-09] MEDS: miSOPROStol 25 MCG TABLET PO (20:46)
[2019-09-09 21:34] LABS: Protein, Urine (Random) 17.5 mg/dL (<11.9); Protein:Creat Ratio 165 mg/g CRE (0-200)
[2019-09-10] MEDS: miSOPROStol 25 MCG TABLET PO ×2 (00:46→05:36)
[2019-09-10] MEDS: 0.9% Normal Saline Single 100 ML IV.SOLN. IY (10:12)
--- NOTE | 2019-09-10 10:12 | PCM.PN.BLA ---
Progress Note S: Minimal discomfort with UCs; spouse bedside and supportive O: AVSS FHTs: 135 baseline, moderate variability, +accels, no decels UCs: Q 3-4 Cervix: unchanged at 50/-3 A: 28yo at 38w 4d gestation by 7w 5d US s/p Cytotec cervical ripening procedure x 3 doses, minimal cervical change Gestational hypertension Group B negative O negative, Rhogam at 28 weeks Cat 1 FHTs P: Risks, benefits of cervical atkins placement discussed, pt agrees to procedure Cervical atkins placement, 24F latex free, bulb inflated w/30ml ns Start Pitocin at 2mu, increase by 2 mu Q30 minutes to achieve adequate labor pattern Gentle traction to atkins Q hour until easily falls out
[2019-09-10] MEDS: 0.9% Saline Lock 10 ML Syringe IV ×2 (10:22→19:31)
[2019-09-10] MEDS: Oxytocin 30 units/NS 500 ml 30 UNITS/500 ML IV.SOLN IV (10:30)
[2019-09-10] MEDS: Lactated Ringers 500 ML 999 ML IV ×2 (14:30→21:15)
[2019-09-10] MEDS: fentaNYL-bupivacaine (epidural) 100 ML BAG EPIDURAL ×2 (15:28→20:04)
[2019-09-10] MEDS: Lactated Ringers 1,000 ML 200 ML IV ×2 (18:02→23:35)
--- NOTE | 2019-09-10 18:59 | PCM.PN.BLA ---
Progress Note This is a late entry for 09/10/2019 1350 S: Per RN, pt becoming uncomfortable, requesting epidural O: AVSS Cervical atkins out @1338 FHTs: 145 baseline, moderate variability, +accels, no decels UCs: Q 2-4 Pitocin: 6 mu Cervix: 4/70/-2 per RN at 1350 A: 28yo at 38w 4d gestation by 7w 5d US s/p Cytotec cervical ripening procedure x 3 doses followed by cervical atkins w/pitocin Gestational hypertension Early labor Cat 1 FHTs P: Continue Pitocin to achieve/maintain adequate labor Continuous EFM, close monitoring Anticipating vaginal delivery
--- NOTE | 2019-09-10 19:12 | PCM.PN.BLA ---
Progress Note This is a late entry for 09/10/2019 1820 S: Comfortable with epidural; denies s/s hypertension spouse bedside an supportive O: AVSS FHTs: 145 baseline, moderate variability, with accels, no decels UCs: Q 3 Pitocin 8mu Cervix 5.5/80/-1 A: 28yo at 38w 4d gestation by 7w 5d US Gestational hypertension Active labor Cat 1 FHTs O: Risks/benefits of AROM, IUPC discussed, pt agrees with administration of both AROM for small amount clear fluid stained with bloody show Continue titrating Pitocin to achieve adequate labor Close observation Anticipate vaginal delivery
[2019-09-10] MEDS: Ondansetron 4 MG/2 ML Vial IV (19:31)
--- NOTE | 2019-09-10 21:13 | PCM.PN.BLA ---
Progress Note S: Comfortable w/epidural; spouse beside and supportive O: AVSS FHTs: 145 baseline, moderate variability, no accels, intermittent late decels UCs: Q 2-3 Pitocin: 10mu Cervical exam: Deferred A: Active labor Gestational hypertension Cat 2 FHTs P: Position changes to enhance uteroplacental oxygenation 500ml LR bolus x 1 now Cervical exam in 1/2 hour if no improvement
--- NOTE | 2019-09-11 00:08 | PCM.PN.BLA ---
Progress Note S: Comfortable with epidural; feeling pressure with contractions; spouse, mother bedside and supportive O: AVSS FHTs: 145 baseline, moderate vriability, +accels, occasional late decels UCs: Q 2-3 Cervix: 990/0 Pitocin 10mu A: 28yo at 38w 5d gestation by 7w 5d US Gestational hypertension Active labor, progressing well Cat 2 FHTs P: Continued close observation Recheck cervix in 2 hours or PRN Anticipate vaginal delivery
[2019-09-11] MEDS: fentaNYL-bupivacaine (epidural) 100 ML BAG EPIDURAL ×2 (00:38→05:43)
[2019-09-11] MEDS: Lactated Ringers 1,000 ML 200 ML IV (04:22)
--- NOTE | 2019-09-11 05:03 | PCM.PN.BLA ---
Progress Note S: Comfortable with epidural; able to push with contractions; denies s/s hypertension; mother and spouse bedside and supportive O: AVSS FHTs: 150 baseline, minimal to moderate variability, no accels, occasional late decels UCs: Q 2-3 Pitocin: 12mu Cervix: 10/100/0 A: Active labor, second stage Gestational hypertension Cat 2 FHTs P: Continue pushing with contractions Frequent position changes, LR bolus if needed to maximize uteroplacental perfusion Anticipate vaginal delivery
--- NOTE | 2019-09-11 07:42 | PLAC_PTH ---
PATIENT: WILLIS GAUTAM LOC: [facility] U#:[id number] AGE/SX: 28/F ROOM: WP004 RE09/09/[address]: Mei Black CNM : 1990 BED: 1 DIS: 09/13/2019 SPEC #: [id number] RECD: 09/11/19 18:14 STATUS: SUN RECaren #: [id number] JOHN: 09/11/19 07:[address]: Mei Black DEPT: SURGICAL PATHOLOGY RECD BY: Jadiel Gorman ENTERED: 09/12/19 09:25 SP TYPE: PLACENTA OTHR DR: Mei Hernandez PA-C Tissues: Placenta, NOS Procedures: Surgery Specimen Level V HEADER OPERATION: Vaginal delivery PRE-OP DIAGNOSIS: Gestational hypertension, maternal and infant fever post delivery TISSUE SUBMITTED: Placenta MICROSCOPIC DIAGNOSIS Placenta: Placental disc - third trimester placenta (475 gm). Membranes - mild acute chorioamnionitis. Umbilical cord - three blood vessels and no pathologic diagnosis. ED:brody 09/16/19 MICROSCOPIC DESCRIPTION Slides are reviewed. GROSS DESCRIPTION SPECIMEN: PLACENTA / CLINICAL INFORMATION: A. Weight: 3.311 kg B. Gestational Age: 38 weeks C. Sex: Female PLACENTAL WEIGHT (POST FIXATION): 475 gm PLACENTAL DIMENSIONS: 18 x 17 x 3 cm PLACENTAL SHAPE: Usual ovoid PLACENTAL WEIGHT FOR GESTATIONAL AGE: Within 10-99th percentile MEMBRANES - Present A. Insertion: Marginal B. Site of rupture from edge: 6 cm from edge of placental disc C. Color of membrane: Umanzor-liang D. Abnormalities: None UMBILICAL CORD - Present A. Color: Umanzor-liang B. Insertion: Paracentral C. Length: 38 cm D. Diameter: 1.2 cm E. Number of vessels: Three F. Abnormalities: Focal area of end shows slightly increased spiraling. PLACENTAL DISC - Present A. Color of surface: Umanzor-liang B. surface abnormalities: None C. Maternal cotyledons: Intact with minimal tears. A few blood clots are noted on the maternal surface. D. Attached retro placental clot: No clot E. Cut surface: Dark red and spongy F. Lesions: None G. Separate clot: Absent SECTIONS SUBMITTED: 1. Membrane roll 2. Cord, maternal end 3. Cord, end 4. Placental disc, and maternal surfaces 5. Placental disc, and maternal surfaces 6. Placental disc, and maternal surfaces SJ:brody 09/15/19 TC:2 CPT: 39316
[2019-09-11] MEDS: Oxytocin 30 units/NS 500 ml 30 UNITS/500 ML IV.SOLN 334 UNITS IV (07:50)
[2019-09-11] MEDS: Acetaminophen 325 MG Tablet PO (08:20)
--- NOTE | 2019-09-11 08:42 | PCM.OPRPT ---
Vaginal Delivery Method of Induction: Cervidil, Pitocin, Oneil Bulb, Amniotomy Amniotic Membrane Rupture Type: Artificial Rupture of Membrane time: 181709/10/19 Amniotic Fluid Description: Clear Final AMANDA: 09/20/19 Final AMANDA Source: US <20 weeks Gestational age: 38 Weeks and 6 Days Date of Procedure: 09/11/19 Pre-Operative Diagnosis: Gestational Hypertension, IOL Post-Operative Diagnosis: , Gestational Hypertension Surgery/ Procedure Performed: Spontaneous Vaginal Delivery Type of Anesthesia: Epidural Description of Procedure: Pushed 3 hours,delivered viable female OA to ANNAMARIA over first degree vaginal laceration; nuchal cord x 1, infant delivered through, shoulders delivered easily with maternal effort; infant to mothers abdomen, cord clamped x 2 and cut by CNM, APGARs 8/9; placenta delivered via Gill mechanism, 3 vessel cord, central insertion; placenta small, maternal and infant fever immediately post delivery, placenta sent for pathology; first degree bilateral vaginal tears repaired with 3-0 Vicryl, good hemostasis obtained; EBL 100ml Lap sponge, Raytec, and instrument counts correct x 2 with RN Presentation: Vertex, ANNAMARIA Placental Delivery Description: Spontaneous Placenta Disposition: Sent to Pathology Cord Entanglement: Around neck x 1, loose Infant A gender: Male (1 minute): 8 (5 minute): 9 Laceration: Midline, Vaginal Extension/lac, 1st degree Medications given after delivery: IV Pitocin Complications: None - Maternal and infant temps noted immediately after delivery, d/w Dr. Varela, maternal IV antibiotics ordered
--- NOTE | 2019-09-11 10:23 | PCM.RX.CS ---
Consult Pharmacy has been consulted to manage selected antiobiotic: Gentamicin Type of Consult: New start Suspected Infection: Other Prior Doses of Antibiotics Received/Current Regimen: 0 Labs: Creatinine 0.75 mg/dL (0.55-1.02) 09/09/19 20:00 Est GFR (MDRD) Af Amer 118 mL/min (>60) 09/09/19 20:00 Est GFR (MDRD) Non-Af 98 mL/min (>60) 09/09/19 20:00 TROUGH ORDERED FOR 30 MIN PRIOR TO NEXT DOSE. IF UNDETECTABLE, CONTINUE SAME DOSE Weight used for dosin.6 kg Estimated Creatinine Clearance: 110 Goal Trough: Other - EXTENDED DOSING, LOOKING FOR UNDETECTABLE TROUGH LEVEL Pharmacy Plan for Drug Dosing: Pharmacy Service will continue to monitor and adjust dosing as required.
[2019-09-11 12:16] VITALS: BP 115/60; PULSE 93; RESP 18; TEMP 36.7; O2SAT 98
[2019-09-11] MEDS: Acetaminophen 500 MG Tablet 1000 MG PO ×2 (14:04→23:19)
[2019-09-11 16:12] VITALS: BP 128/53; PULSE 82; RESP 18; TEMP 36.7; O2SAT 97
[2019-09-11 20:17] VITALS: BP 110/67; PULSE 69; RESP 16; TEMP 36.4
[2019-09-11 23:04] VITALS: BP 122/60; PULSE 73; RESP 16; TEMP 36.4
[2019-09-11] MEDS: Senna/Docusate Sodium 1 Tablet PO (23:20)
[2019-09-12 03:48] VITALS: BP 109/64; PULSE 73; RESP 16; TEMP 36.4
[2019-09-12 04:37] LABS: Hemoglobin 10.4 g/dL (12.0-15.0); Mean Corp Hgb Conc 33.5 g/dL (32-36); Mean Corpuscular Hgb 31.7 pg (27.0-32.0); Mean Corpuscular Volume 94.5 fL (81-99); Mean Platelet Vol. 10.1 fl (6.2-12.0); Platelet Count 181 K/mm3 (150-450); RBC Distribution Width CV 13.3 % (11.6-14.6); RBC Distribution Width SD 45.7 fl (35.1-43.9); Red Blood Count 3.28 M/mm3 (4.2-5.4); White Blood Count 17.3 K/mm3 (4.4-11.0)
[2019-09-12 08:24] VITALS: BP 119/66; PULSE 72; RESP 18; TEMP 36.4
[2019-09-12] MEDS: Acetaminophen 500 MG Tablet 1000 MG PO ×2 (13:03→22:04)
--- NOTE | 2019-09-12 13:11 | DCINST_ITS ---
Discharge Diet: No Restrictions Discharge Activity: Return to Normal Activity, No Restrictions Return to work on:: 10/17/19 May resume sexual activity in: 6-8 weeks Weight Bearing Status: Weight bearing as tolerated Lifting Restrictions: Nothing heavier than the baby for two weeks Additional Activity Instructions:: Minimize cooking, cleaning, shopping and long car trips for two weeks; try to get at least 8 hours sleep in 24 hours for the first two weeks - sleep when the baby sleeps Call your doctor if your incision/area has: Continuous Slow Oozing, Sudden Increased Bleeding, Increased Pain/ Swelling, Increased Redness, Foul Smelling Discharge Call your doctor if you observe: Fever of 101 or Higher, Coldness, Increased Pain, Change in Color, Inability to urinate, Inability to have a bowel movement, Using more than one pad per hour, Shortness of breath, Fainting spells, Chest pain, Increased palpitations (irregular heartbeat), Calf discomfort, Uncont rolled pain Additional Instructions: If you experience any of the following, contact your healthcare provider. * Bleeding that soaks a pad every hour for 2 hours * Fever 100.4 or higher * Unrelieved incision or abdominal pain * Swelling, redness, discharge or bleeding from your incision or episiotomy site * Your incision begins to separate * Problems urinating (including inability to urinate or burning while urinating). * Visual changes * Severe headache * Flu-like symptoms * Pain or redness in one of both of your breasts * Pain, warmth, tenderness or swelling in your legs, especially the calf area * Frequent nausea and vomiting * Symptoms of depression or anxiety If you experience any of the following, call 911 or go to the nearest Emergency Room. * Chest pain * Problems breathing * Seizure activity * Partial or complete paralysis of a body part, slurred speech, weakness or drooping of the face, or a sudden inability to walk or hold your balance Allergies/Adverse Reactions: Allergies Latex, Natural Rubber Allergy (Verified 09/09/19 20:04) Other UTI Penicillins Allergy (Verified 09/09/19 20:04) Hives Medications to take at Discharge Pantoprazole Sodium [Protonix] 40 mg PO DAILY 08/05/19 Vits [Prenatabs FA] 1 tab PO DAILY 08/05/19 Please Follow Up With: Mei Black CNM When: In 6 weeks for checkup Test Results: Test results from this visit will be discussed in further detail at your follow- up appointment, if applicable. Proposed Discharge Date: 09/12/19
--- NOTE | 2019-09-12 13:15 | PCM.PN.OB ---
Subjective: This is a late entry for 09/12/19 at 0750 Pain well controlled, tolerating diet, passing flatus; infant well; spouse bedside and supportive; undecided on contraception Objective: AVSS Breasts soft, nipples atraumatic Fundus firm, midline, u/1, lochia small Perineal repair well approximated, minimal edema, no drainage, erythema or ecchymosis noted - Physical Exam Vitals/I&O's: Vital Signs Temp Pulse Resp BP Pulse Ox 97.5 F L 72 18 119/66 97 09/12/19 08:24 09/12/19 08:24 09/12/19 08:24 09/12/19 08:24 09/11/19 16:12 Oxygen Delivery Method Room Air Weight: 214 lb Body Mass Index (BMI) 33.5 Intake and Output for Last 24 Hours 09/10/19 09/11/19 09/12/19 23:59 23:59 23:59 Intake Total 4533.61 / 4533.61 2440.46 / 2440.46 Output Total 1400 / 1400 2550 / 2550 Balance 3133.61 / 3133.61 -109.54 / -109.54 General: Alert, Oriented x3, Cooperative, No apparent distress HEENT: PERRLA, EOMI Oral: Moist Mucosa Neck: Supple Lungs: Clear to auscultation, Normal air movement Cardiovascular: Regular rate, Regular Rhythm Abdomen: Bowel Sounds Present, Soft, Non Tender, Non-Distended, Passing Flatus Extremities: No edema, Capillary Refill Less than 3 Seconds, No Calf Tenderness Skin: No rashes Musculoskeletal: No Tenderness to Palpation of Joints or Extremities Neurological: Cranial nerves II-XII grossly intact, Deep Tendon Reflexes 2+/4 and Symmetrical, Neuro grossly intact Psych/Mental Status: Normal Affect, Appropriate, Alert and oriented to time, place, person, mood and affect Laboratory Results 09/11/19 13:50: Screen NEGATIVE, Baby's Blood Type O POSITIVE, Baby's AJIT NEGATIVE 09/12/19 04:15: WBC 17.3 H, RBC 3.28 L, Hgb 10.4 L, Hct 31.0 L, MCV 94.5, MCH 31.7, MCHC 33.5, RDW Std Deviation 45.7 H, RDW Coeff of Celena 13.3, Plt Count 181, MPV 10.1 Current Medications Acetaminophen (Tylenol) 1,000 mg PO Q8H PRN PRN PRN Reason: Pain Score 1-3/10 Last Admin: 09/12/19 13:03 Dose: 1,000 mg Documented by: Bisacodyl (Dulcolax) 10 mg RECTAL UD PRN PRN Reason: If no BM Dibucaine (Dibucaine) 1 applic TOPICAL TID PRN PRN; Protocol PRN Reason: Discomfort Hydrocortisone (Hytone) 1 applic TOPICAL TID PRN PRN; Protocol PRN Reason: Discomfort Methylergonovine Maleate (Methergine) 0.2 mg IM X1 PRN PRN Reason: Excess bleeding/uterine atony Senna/Docusate Sodium (Senokot-S, Osiris-Colace) 1 - 2 tablet PO DAILY PRN PRN PRN Reason: Constipation Last Admin: 09/11/19 23:20 Dose: 2 tablet Documented by: Simethicone (Mylicon) 80 mg PO PCHS PRN PRN Reason: Indigestion/Stomach pain Medical Necessity - Tobacco Use Smoking Status: Never smoker Assessment/Plan Assessment: 28yo G1 now [id number] delivered via at l8w5d gestation by 7w4d US Gestational hypertension, asymptomatic Mild anemia, asymptomatic PP day #1, normal involution, normal course Plan: Continue routine care Discharge teaching started Continue iron supplementation Discharge home tomorrow
--- NOTE | 2019-09-12 13:46 | PCM.PN.BLA ---
Progress Note This is a late entry for 09/11/19 1100 Per RN, pt and infant both afebrile by end of recovery period; d/w Dr. Varela, decision to DC maternal IV antibiotics
[2019-09-12 14:00] VITALS: BP 115/71; PULSE 87; RESP 18; TEMP 37.1
[2019-09-12 19:37] VITALS: BP 128/76; PULSE 93; RESP 16; TEMP 36.7; O2SAT 99
[2019-09-13 03:00] VITALS: BP 118/64; PULSE 75; RESP 16; TEMP 36.4; O2SAT 96
[2019-09-13 08:00] VITALS: BP 117/73; PULSE 73; RESP 16; TEMP 36.4
[2019-09-13] MEDS: Senna/Docusate Sodium 1 Tablet PO (09:03)
[2019-09-13] MEDS: Acetaminophen 500 MG Tablet 1000 MG PO (09:04)
--- NOTE | 2019-09-13 10:52 | PCM.PN.OB ---
Subjective: PPD#2 Doing well. Baby cluster feeding at night, Was able to get 4 hr sleep last night. Minimal pain and taking tylenol for this. Plans to follow p with Dr. Graciela Adams for pediatric care. - Physical Exam Vitals/I&O's: Vital Signs Temp Pulse Resp BP Pulse Ox 97.5 F L 73 16 117/73 96 09/13/19 08:00 09/13/19 08:00 09/13/19 08:00 09/13/19 08:00 09/13/19 03:00 Oxygen Delivery Method Room Air Weight: 97.069 kg Body Mass Index (BMI) 33.5 Intake and Output for Last 24 Hours 09/11/19 09/12/19 09/13/19 23:59 23:59 23:59 Intake Total 2440.46 / 2440.46 Output Total 2550 / 2550 Balance -109.54 / -109.54 General: Alert, Oriented x3, Cooperative, No apparent distress HEENT: Atraumatic, EOMI Neck: Supple Neurological: Cranial nerves II-XII grossly intact Psych/Mental Status: Normal Affect Current Medications Acetaminophen (Tylenol) 1,000 mg PO Q8H PRN PRN PRN Reason: Pain Score 1-3/10 Last Admin: 09/13/19 09:04 Dose: 1,000 mg Documented by: Bisacodyl (Dulcolax) 10 mg RECTAL UD PRN PRN Reason: If no BM Dibucaine (Dibucaine) 1 applic TOPICAL TID PRN PRN; Protocol PRN Reason: Discomfort Hydrocortisone (Hytone) 1 applic TOPICAL TID PRN PRN; Protocol PRN Reason: Discomfort Methylergonovine Maleate (Methergine) 0.2 mg IM X1 PRN PRN Reason: Excess bleeding/uterine atony Ondansetron HCl (Zofran) 4 mg IV Q4H PRN PRN PRN Reason: Nausea Senna/Docusate Sodium (Senokot-S, Osiris-Colace) 1 - 2 tablet PO DAILY PRN PRN PRN Reason: Constipation Last Admin: 09/13/19 09:03 Dose: 2 tablet Documented by: Simethicone (Mylicon) 80 mg PO PCHS PRN PRN Reason: Indigestion/Stomach pain Sodium Chloride () 5 - 15 ml IV UD PRN PRN Reason: SALINE FLUSH Medical Necessity - Tobacco Use Smoking Status: Never smoker Assessment/Plan PPD#2 Stable . Dischg home today. RTO in 6 wk for pp check, prn sooner.
--- NOTE | 2019-09-13 10:54 | PCM.DC.SUM ---
Discharge Date and Diagnosis Date of Admission: 09/09/19 - PIH induction 38 1/2 wks Date of Discharge: 09/13/19 Hospital Course and Treatment Operations: - - Induction of labor . Vaginal delivery Summary of Care Provided: The patient is a 28 year old female at 38 + wk presented for induction of labor 2/2 PIH, gestational HTN. Admitted for cytotec, then to Oneil bulb , pitocin delivered glass viable female by 7# 11 oz. course uneventful and home on PPD#2 RTO in 6 wk for pp check. - Physical Exam Vitals/I&O's: Vital Signs Temp Pulse Resp BP Pulse Ox 97.5 F L 73 16 117/73 96 09/13/19 08:00 09/13/19 08:00 09/13/19 08:00 09/13/19 08:00 09/13/19 03:00 Oxygen Delivery Method Room Air Weight: 97.069 kg Body Mass Index (BMI) 33.5 Intake and Output for Last 24 Hours 09/11/19 09/12/19 09/13/19 23:59 23:59 23:59 Intake Total 2440.46 / 2440.46 Output Total 2550 / 2550 Balance -109.54 / -109.54 Current Medications Acetaminophen (Tylenol) 1,000 mg PO Q8H PRN PRN PRN Reason: Pain Score 1-3/10 Last Admin: 09/13/19 09:04 Dose: 1,000 mg Documented by: Bisacodyl (Dulcolax) 10 mg RECTAL UD PRN PRN Reason: If no BM Dibucaine (Dibucaine) 1 applic TOPICAL TID PRN PRN; Protocol PRN Reason: Discomfort Hydrocortisone (Hytone) 1 applic TOPICAL TID PRN PRN; Protocol PRN Reason: Discomfort Methylergonovine Maleate (Methergine) 0.2 mg IM X1 PRN PRN Reason: Excess bleeding/uterine atony Ondansetron HCl (Zofran) 4 mg IV Q4H PRN PRN PRN Reason: Nausea Senna/Docusate Sodium (Senokot-S, Osiris-Colace) 1 - 2 tablet PO DAILY PRN PRN PRN Reason: Constipation Last Admin: 09/13/19 09:03 Dose: 2 tablet Documented by: Simethicone (Mylicon) 80 mg PO PCHS PRN PRN Reason: Indigestion/Stomach pain Sodium Chloride () 5 - 15 ml IV UD PRN PRN Reason: SALINE FLUSH Discharge Diet: No Restrictions Discharge Activity: Return to Normal Activity, No Restrictions Return to work on:: 10/17/19 May resume sexual activity in: 6-8 weeks Weight Bearing Status: Weight bearing as tolerated Additional Activity Instructions:: Minimize cooking, cleaning, shopping and long car trips for two weeks; try to get at least 8 hours sleep in 24 hours for the first two weeks - sleep when the baby sleeps Call your doctor if your incision/area has: Continuous Slow Oozing, Sudden Increased Bleeding, Increased Pain/ Swelling, Increased Redness, Foul Smelling Discharge Call your doctor if you observe: Fever of 101 or Higher, Coldness, Increased Pain, Change in Color, Inability to urinate, Inability to have a bowel movement, Using more than one pad per hour, Shortness of breath, Fainting spells, Chest pain, Increased palpitations (irregular heartbeat), Calf discomfort, Uncontrolled pain Home Medications: Medications to take at Discharge Pantoprazole Sodium [Protonix] 40 mg PO DAILY 08/05/19 Vits [Prenatabs FA] 1 tab PO DAILY 08/05/19 Primary Care Physician: Mei Hernandez PA-C [Primary Care Provider] - Please Follow Up With: Mei Black CNM Medical Necessity - Tobacco Use Smoking Status: Never smoker Meaningful Use Info Meaningful Use Diagnoses (Choose all that apply): None applicable
[2019-09-16 13:52] LABS: Pathology Specimen OB SEE PATHOLOGY REPORT
== END 2019-09-13 11:38 | disposition home or self-care (01) | DRG 807 ==
PROVIDERS: Obstetrics & Gynecology; Admitting Provider Advanced Practice Midwife; Family Provider Family Medicine; PCP Family Medicine; Referring Provider Advanced Practice Midwife; Visit Provider Advanced Practice Midwife
DX: O13.4 Gestational [pregnancy-induced] hypertension without significant proteinuria, complicating childbirth (principal); Z37.0 Single live birth; O76 Abnormality in fetal heart rate and rhythm complicating labor and delivery; O71.4 Obstetric high vaginal laceration alone; O69.81X0 Labor and delivery complicated by cord around neck, without compression, not applicable or unspecified; Z3A.38 38 weeks gestation of pregnancy; O90.81 Anemia of the puerperium; D64.9 Anemia, unspecified; O86.4 Pyrexia of unknown origin following delivery
CPT/HCPCS: 59025; 59050; 82565; 82570; 84156; 84450; 84460; 84550; 85025; 85027; 85461; 85610; 85730; 86850; 86900; 86901; 88307; 90384; 99218; J7120; A4216; G0378; J2405; J2790

== ENCOUNTER 2019-09-18 15:50 | Emergency (ER) | payer OTHER, SELFPAY ==
[2019-09-18 15:50] VITALS: BP 129/80; PULSE 90; RESP 18; TEMP 37.3; O2SAT 100; BMI 29.7
--- NOTE | 2019-09-18 16:01 | VDLE_ITS ---
Reason For Study: Pain Procedure LEFT Exam performed portable in ED. GSV is normal. A preliminary report was called and/or faxed CFV is compressible, spontaneous, phasic, to ED Nurse. competent, and demonstrates normal augmentation. FV is compressible, spontaneous, phasic, competent and demonstrates normal augmentation. POP V is compressible, spontaneous, phasic, competent and demonstrates normal augmentation. T/P Trunk is compressible. PTV is compressible. LT PerV is compressible. Interpretation Summary Deep veins of the left lower extremity are patent and compressible segmentally. There is no evidence of left lower extremity deep vein thrombosis. Valvular competence appears intact within the proximal deep venous system on the left . The left great saphenous vein appears patent and compressible segmentally. Ordering Physician: Ysabel Mccoy Referring Physician: Mei Hernandez Performed By: Chula Dimas RVT
[2019-09-18] MEDS: Acetaminophen 500 MG Tablet 1000 MG PO (16:06)
--- NOTE | 2019-09-18 16:12 | ED.DCSUM_ITS ---
- ER Visit Summary Date of Service: 09/18/19 Chief Complaint: Left leg pain History of Present Illness: The patient is a 28 F presenting with left leg pain. Patient states this started 2 days ago. She denies injury. She had a normal spontaneous vaginal delivery one week ago. She has had intermittent fevers since that time. She has been taking Tylenol at home. She is currently breast- feeding. Her MANAGER [employer]ITING called her in antibiotics today for mastitis. She has not started this medication yet. She complains of fever and myalgias. She has had a mild headache. It is not the worst headache of her life. She denies nausea, vomiting, diarrhea. Denies chest pain or shortness of breath. Denies other complaints. Physical Examination: Vitals are stable. Temperature 99.2. Alert no acute distress. HEENT exam is unremarkable. Neck is supple. No meningismus Lungs are clear and equal bilaterally. Left breast erythema with no fluctuance Heart is regular rate and rhythm. Abdomen is soft nontender nondistended. No guarding or rebound Extremities mild left calf tenderness, normal distal pulses. No erythema or warmth. Skin is warm and dry. No rash No focal neurologic deficit. Remainder of exam is unremarkable. Emergency Department Course and Treatment: Patient was given Tylenol. Venous Doppler left lower extremity shows no evidence of DVT. Influenza negative. Advised to take antibiotics as directed. Discussed with Dr. Langley. Patient will follow-up in the office. Advised return to ED for worsening complaints. Disposition: Discharge home Impression: Left lower extremity pain, mastitis This note was generated with [employer] dictation software. It may contain incorrect words, spelling, and punctuation that were not noted in review of the chart prior to signing ED Disposition - Plan for ED Patient: Disposition: Home or Assisted Living Instructions: Mastitis Referrals: Josefa Langley MD [STAFF PHYSICIAN] - Mei Hernandez PA-C [Primary Care Provider] -
--- NOTE | 2019-09-18 17:18 | ED.DEP ---
ED Disposition - Plan for ED Patient: Instructions: Mastitis Referrals: Mei Hernandez PA-C [Primary Care Provider] - Josefa Langley MD [STAFF PHYSICIAN] -
== END 2019-09-18 17:30 | disposition home or self-care (01) ==
LOC: ED 16:06
PROVIDERS: Emergency Provider Emergency Medicine; Family Provider Family Medicine; PCP Family Medicine
DX: O90.89 Other complications of the puerperium, not elsewhere classified (principal); M79.605 Pain in left leg; O91.22 Nonpurulent mastitis associated with the puerperium
CPT/HCPCS: 87804; 93971; 99283

== ENCOUNTER 2019-09-19 17:44 | Emergency (ER) | payer OTHER, SELFPAY ==
[2019-09-18 15:50] VITALS: BMI 29.7
[2019-09-19 17:45] VITALS: BP 125/64; PULSE 136; RESP 18; TEMP 39.5; O2SAT 97; BMI 28.8
[2019-09-19] MEDS: 0.9% Normal Saline 1,000 ML 1000 ML IV (18:35)
[2019-09-19] MEDS: Ceftriaxone 1 GM/50 ML BAG IV (18:36)
[2019-09-19] MEDS: Ibuprofen 600 MG Tablet PO (18:36)
[2019-09-19 18:40] LABS: Absolute Lymphocyte Count 0.58 X10^3/uL (0.83-4.51); Absolute Neutrophil Count 8.8 X10^3/uL (2.0-7.7); Basophil# 0.01 X10^3/uL; Basophil% 0.1 % (0-1); Hematocrit 35.7 % (37-47); Hemoglobin 11.9 g/dL (12.0-15.0); Lymphocyte # 0.58 X10^3/ul (4.0); Lymphocyte % 5.8 % (19-41); Mean Corp Hgb Conc 33.3 g/dL (32-36); Mean Corpuscular Hgb 30.9 pg (27.0-32.0); Mean Corpuscular Volume 92.7 fL (81-99); Mean Platelet Vol. 9.2 fl (6.2-12.0); Monocyte# 0.51 X10^3/uL; Monocyte% 5.1 % (0-10); NRBC Flagged by Analyzer 0 % (0-5); Neutrophil % 87.6 % (47-70); POSITIVE DIFFERENTIAL YES; Platelet Count 277 K/mm3 (150-450); RBC Distribution Width CV 12.7 % (11.6-14.6); RBC Distribution Width SD 43.1 fl (35.1-43.9); Red Blood Count 3.85 M/mm3 (4.2-5.4)
[2019-09-19 18:42] LABS: Differential Indicated SCAN CRITERIA MET
[2019-09-19 18:51] LABS: Mucous, Urine 0 SEEN /hpf (<or=2+)
[2019-09-19 18:51] LABS: Anion Gap 8 (5-15); BUN 15 mg/dL (7-18); BUN/Creat Ratio 16.7 RATIO (10-20); Calcium,Total 8.9 mg/dL (8.5-10.1); Chloride 108 mmol/L (98-107); EST Glomerular Filtration Rate 80 mL/min (>60); Est Glom Filt Rate - Afr Amer 97 mL/min (>60); Estimated Creatinine Clearance 94.72 ml/min; Glucose 125 mg/dL (74-106); Potassium 3.3 mmol/L (3.5-5.1); Sodium Level 138 mmol/L (136-145)
[2019-09-19 18:56] LABS: Color, Urine Yellow (Yellow); Glucose, Dipstick Normal (Normal); Ketone-Dipstick 5 mg/dl (Negative); Leukocyte Esterase-Dipstick 100 /ul (Negative); Nitrite-Dipstick Negative (Negative); Occult Blood-Urine 250 /ul (Negative); Protein-Dipstick 30 mg/dl (Negative); Specific Gravity, Urine 1.015 (1.002-1.030); Urine Bilirubin Dipstick Negative (Negative); Urine Clarity Clear (Clear); Urine Urobilinogen Normal (Normal)
[2019-09-19 19:00] VITALS: BP 129/73; PULSE 106; RESP 18; TEMP 38.5; O2SAT 96
[2019-09-19 19:05] LABS: Bacteria 1+ /hpf (None Seen); Red Blood Cells-Urine 25-50 SEEN /hpf (0-5); Squamous Epithelial Cells - UA 0-5 SEEN /hpf (5-10); White Blood Cells 10-25 SEEN /hpf (0-5)
[2019-09-19 19:08] LABS: Lactic Acid 0.8 mmol/L (0.4-1.9)
[2019-09-19 19:10] LABS: Platelet Estimate ADEQUATE (ADEQ); Red Cell Morphology NORM C+C NORMAL (NORM C&C)
[2019-09-19] MEDS: 0.9% Normal Saline 1,000 ML 150 ML IV (19:46)
[2019-09-19 20:00] VITALS: PULSE 96; RESP 18; TEMP 37.2; O2SAT 97
--- NOTE | 2019-09-19 20:54 | DCINST_ITS ---
- Discharge Diagnoses Current Active Problems: Mastitis, Urinary tract infection Reason(s) for Visit for Discharge Instructions: Mastitis, Urinary Tract Infection You will use the following diet at home:: No restrictions Your food should be the consistency of: Regular Discharge Activity: Return to Normal Activity Call your doctor if you observe: Fever of 101 or Higher, Inability to urinate, Using more than one pad per hour, Shortness of breath, Chest pain, - - Persistent vomiting Additional Instructions: Take Ibuprofen every 8 hours x 48 hours for inflammation, then take it every 8 hours only as needed for pain. You make also take Tylenol over the counter as needed for pain or fever. Take Keflex for Urinary tract infection. Take Clindamycin for Mastitis. Stay well hydrated - keep urine clear to light yellow. Use warm compress at the breast before/during pumping sessions. Continue triple nipple ointment. Allergies/Adverse Reactions: Allergies Latex, Natural Rubber Allergy (Verified 09/19/19 17:44) Other UTI Penicillins Allergy (Verified 09/19/19 17:44) Hives Medications to take at Discharge Cephalexin [Keflex] 500 mg PO BID #8 cap 09/19/19 Clindamycin [Cleocin] 300 mg PO 4X/DAY #40 cap 09/19/19 Ibuprofen 600 mg PO TID PRN #30 tab 09/19/19 Primary Care Physician: Mei Hernandez PA-C [Primary Care Provider] - Test Results: Test results from this visit will be discussed in further detail at your follow- up appointment, if applicable. Please Follow Up With: Marietta Bermudez MD When: 3-7 days
--- NOTE | 2019-09-19 21:01 | PCM.CONS.GEN ---
Problem List (1) Mastitis Status: Acute (2) Urinary tract infection Status: Acute Qualifiers: Urinary tract infection type: acute cystitis Hematuria presence: without hematuria Qualified Code(s): N30.00 - Acute cystitis without hematuria Reason for Consult Date of Consultation: 09/19/19 Reason for Consultation: fever History of Present Illness: The patient is a 28 year old F 1 para 1-0-0-1 day #10 s/p complicated by maternal fever. She presents with complaint of bilateral breast pain, fever to 104 and myalgia. She called the office earlier this week with complaint of breast pain and engorgement. She was evaluated by the community resource consultant and subsequently started on p.o. azithromycin with no improvement of symptoms over 24 hours and increasing pain in the right breast. She is breast-feeding however has been unable to latch the due to engorgement and continues pumping. She is taking triple nipple ointment for cracked nipples. Past Medical History Allergies Latex, Natural Rubber Allergy (Verified 09/19/19 17:44) Other UTI Penicillins Allergy (Verified 09/19/19 17:44) Hives Home Medications: Ambulatory Orders Medication Instructions Recorded Cephalexin [Keflex] 500 mg PO BID #8 cap 09/19/19 Clindamycin [Cleocin] 300 mg PO 4X/DAY #40 cap 09/19/19 Ibuprofen 600 mg PO TID PRN #30 tab 09/19/19 Smoking Status: Never smoker Review of Systems Constitutional: Reports: Chills. Denies: Fever HEENT: Reports: Head Aches, Sinus Congestion. Denies: Ear Pain, Sore Throat Cardiovascular: Denies: Chest Pain, Palpitations, Syncope Respiratory: Denies: Cough, Shortness of Breath Gastrointestinal: Denies: Abdominal Pain, Diarrhea, Nausea, Vomiting Genitourinary: Reports: Dysuria. Denies: Frequency, Hematuria Gynecological: Reports: Breast symptoms, Vaginal bleeding Patient Problems: Active and Suspected Problems Urinary tract infection (Acute) Mastitis (Acute) Subjective: See HPI Objective: Vital Signs (72 hours) 09/19/19 17:45 09/19/19 19:00 09/19/19 20:00 Temperature 103.1 F H 101.3 F H 98.9 F Pulse Rate 136 H 106 H 96 Respiratory Rate 18 18 18 Blood Pressure 125/64 H 129/73 H Pulse Ox 97 96 97 - Physical Exam Vitals/I&O's: Vital Signs Temp Pulse Resp BP Pulse Ox 98.9 F 96 18 129/73 H 97 09/19/19 20:00 09/19/19 20:00 09/19/19 20:00 09/19/19 19:00 09/19/19 20:00 Oxygen Delivery Method Room Air Weight: 86 kg Body Mass Index (BMI) 28.8 Intake and Output for Last 24 Hours 09/17/19 09/18/19 09/19/19 23:59 23:59 23:59 Intake Total 1050 / 1050 Balance 1050 / 1050 General: Alert, Oriented x3, Cooperative, No apparent distress HEENT: Atraumatic, Normocephalic Lungs: Normal air movement Abdomen: Soft, Non Tender, Non-Distended, - - Wedge shaped left breast redness in left lower quadrant, no fluctuant lesions or palpable masses. Breast bilaterally engorged with edema, cracked nipples with cicatrix. No CVA tenderness or suprapubic tenderness Extremities: No Calf Tenderness Neurological: Neuro grossly intact Psych/Mental Status: Normal Affect, Appropriate, Alert and oriented to time, place, person, mood and affect Laboratory Results 09/19/19 18:25: WBC 10.0, RBC 3.85 L, Hgb 11.9 L, Hct 35.7 L, MCV 92.7, MCH 30.9, MCHC 33.3, RDW Std Deviation 43.1, RDW Coeff of Celena 12.7, Plt Count 277, MPV 9.2, Immature Gran % (Auto) 0.400, Neut % (Auto) 87.6 H, Lymph % (Auto) 5.8 L, Fannin % (Auto) 5.1, Eos % (Auto) 1.0, Baso % (Auto) 0.1, Absolute Neuts (auto) 8.8 H, Absolute Lymphs (auto) 0.58 L, Nucleated RBC % 0, Differential Comment , Platelet Estimate ADEQUATE, RBC Morphology NORM C+C 09/19/19 18:25: Sodium 138, Potassium 3.3 L, Chloride 108 H, Carbon Dioxide 22.0, Anion Gap 8, BUN 15, Creatinine 0.90, Estim Creat Clear Calc 94.72, Est GFR (MDRD) Af Amer 97, Est GFR (MDRD) Non-Af 80, BUN/Creatinine Ratio 16.7, Glucose 125 H, Calcium 8.9 09/19/19 18:25: Lactic Acid 0.8 09/19/19 18:40: Urine Color Yellow, Urine Clarity Clear, Urine pH 6.0, Ur Specific [place] 1.015, Urine Protein 30 H, Urine Glucose (UA) Normal, Urine Ketones 5 H, Urine Occult Blood 250 H, Urine Nitrite Negative, Urine Bilirubin Negative, Urine Urobilinogen Normal, Ur Leukocyte Esterase 100 H, Urine RBC 25-50 SEEN, Urine WBC 10-25 SEEN, Ur Squamous Epith Cells 0-5 SEEN, Urine Bacteria 1+, Urine Mucus 0 SEEN Current Medications Sodium Chloride () 1,000 mls @ 150 mls/hr IV .Q6H40M [facility] Last Admin: 09/19/19 19:46 Dose: 150 mls/hr Documented by: Assessment/Plan All Active Problems Urinary tract infection (Acute) Mastitis (Acute) 28yo with acute cystitis and mastitis refractory to 24h Azithryomycin -Discussed with patient overnight observation vs. discharge to home. She is hemodynamically stable and fever curve down trending. -Patient opts for discharge to home -Keflex for UTI -d/c Azithromycin, start Clindamycin for mastitis -Pt to f/u with me by phone this weekend to assess symptoms further. -Supportive measures for engorgement, mastitis reviewed.
--- NOTE | 2019-09-19 21:08 | ED.VISSUMM ---
- ER Visit Summary Date of Service: 09/19/19 Chief Complaint: [Fever] History of Present Illness: The patient is a 28 F [presents to the emergency department with complaint of a fever that started yesterday. Patient diagnosed with mastitis 2 days ago and Zithromax was called in yesterday. Patient was also seen in the emergency department yesterday complaining of some pain in her legs patient had venous Doppler that was negative for his ago. He is doing high fevers despite Tylenol at home. Patient presents. Prescription dysuria. She denies urgency or frequency. She denies any abdominal pain. She is had no vomiting or diarrhea. Patient denies cough or sore throat. Patient has no medical history otherwise.] Physical Examination: [HEENT-PERRLA, EOMI. Cranial nerves II through XII grossly intact. TMs clear. Mucous membranes moist. No adenopathy. Cardiovascular-regular and tachycardic. No murmurs auscultated. Lungs-clear to auscultation, chest wall stable without crepitus or subcu emphysema Breast exam-patient does have erythema to the inferior aspect of the left breast extending towards the medial aspect of the breast. Both breasts are quite engorged. I do not palpate any obvious discrete abscess or fluctuance. Patient also has some mild faint erythema noted to the inferior aspect of the right breast. Abdomen-normoactive bowel sounds, soft, nontender, no rebound or rigidity, no peritoneal signs. Extremities-intact ?4, normal range of motion, normal pulses, atraumatic] Test Results: [CBC with differential, 10.0, hemoglobin 12, hematocrit 36, platelet 277. Chemistries unremarkable. Patient did actually have a slightly depressed potassium of 3.3. Urinalysis showed 100 leukocyte esterase as well as 10-25 WBCs and +1 bacteria. Urine culture was sent. Lactate was normal at 0.8.] Emergency Department Course and Treatment: [Patient was given Rocephin 1 g IV. Patient was given a liter normal same fluid bolus. Case was discussed with patient's PEDIATRIC PHYSICAL THERAPIST Dr. Carlyn Frank who presented to the emergency department to evaluate patient. We discussed possible admission for IV antibiotics however after Dr. Yeimi Frank evaluated the patient and discussed with patient it was decided that patient would go home with antibiotics. Discharge was ordered by Dr. Carlyn Frank and discharge instructions were written by her.] Treatment Plan: [Follow-up with Dr. Carlyn Frank.] Disposition: [Discharged home in stable condition] Impression: [Mastitis UTI] This note was generated with [employer] (formerly known as [employer]) dictation software. It may contain incorrect words, spelling, and punctuation that were not noted in review of the chart prior to signing ED Disposition - Plan for ED Patient: Referrals: Mei Hernandez PA-C [Primary Care Provider] -
[2019-09-19 21:29] VITALS: BP 122/71; PULSE 98; RESP 18; TEMP 37.2; O2SAT 98
== END 2019-09-19 21:30 | disposition home or self-care (01) ==
LOC: ED 18:31
PROVIDERS: Emergency Provider Emergency Medicine; Family Provider Family Medicine; PCP Family Medicine
DX: O91.22 Nonpurulent mastitis associated with the puerperium (principal); O86.20 Urinary tract infection following delivery, unspecified; Z79.2 Long term (current) use of antibiotics
CPT/HCPCS: 80048; 81001; 83605; 85025; 87040; 87086; 87088; 96361; 96365; 99285; J7030; J7040; A4216

== ENCOUNTER → 2019-09-21 17:50 | Outpatient (CLI) | payer OTHER, SELFPAY ==
[2019-09-19 17:45] VITALS: BMI 28.8
== END ==
PROVIDERS: Family Provider Family Medicine; PCP Family Medicine; Visit Provider Obstetrics & Gynecology
DX: O91.22 Nonpurulent mastitis associated with the puerperium (principal); O92.79 Other disorders of lactation
CPT/HCPCS: 96152

== ENCOUNTER → 2019-09-26 09:56 | Outpatient (CLI) | payer OTHER, SELFPAY ==
[2019-09-19 17:45] VITALS: BMI 28.8
--- NOTE | 2019-09-26 10:00 | US_ITS ---
STUDY: ULTRASOUND BREAST - LEFT REASON FOR EXAM: Female, 28 years old. Breast pain. Mastitis. TECHNIQUE: Axial and longitudinal images of the LEFT breast were performed with a high resolution ultrasound transducer. # OF IMAGES: 54 COMPARISON: None. FINDINGS: LEFT Breast: Targeted examination of the left breast shows a large retroareolar fluid collection measuring 5 cm x 5.2 cm x 3.6 cm with substantial debris within it. There is thickening of the wall of this fluid collection with increased blood flow. Findings are compatible with a breast abscess. US/Breast Limited Unilateral IMPRESSION: Retroareolar breast abscess as described. Follow-up imaging to resolution would be appropriate. ASSESSMENT CATEGORY: BIRADS Category 3: Probably Benign - Short-Interval Follow-up Suggested. A letter regarding these results will be sent to the patient by the facility within 30 days. Electronically Signed: Torin Sprague MD at 10:45 EST , Service support ,
== END ==
PROVIDERS: Family Provider Family Medicine; PCP Family Medicine; Visit Provider Obstetrics & Gynecology
DX: N61.1 Abscess of the breast and nipple (principal)
CPT/HCPCS: 76642; 87070; 87075; 87077; 87186; 87205

== ENCOUNTER → 2019-10-10 16:53 | Outpatient (CLI) | payer OTHER, SELFPAY ==
[2019-10-07 14:55] VITALS: BMI 28.8
[2019-10-10 16:56] LABS: Bacteria 0 SEEN /hpf (None Seen); Mucous, Urine 0 SEEN /hpf (<or=2+); White Blood Cells 0 SEEN /hpf (0-5)
[2019-10-10 18:34] LABS: Color, Urine Yellow (Yellow); Glucose, Dipstick Normal (Normal); Ketone-Dipstick Negative (Negative); Leukocyte Esterase-Dipstick 25 /ul (Negative); Nitrite-Dipstick Negative (Negative); Occult Blood-Urine 250 /ul (Negative); Protein-Dipstick 15 mg/dl (Negative); Urine Bilirubin Dipstick Negative (Negative); Urine Clarity Cloudy (Clear); Urine Urobilinogen Normal (Normal)
[2019-10-10 18:50] LABS: Red Blood Cells-Urine 25-50 SEEN /hpf (0-5); Squamous Epithelial Cells - UA 5-10 SEEN /hpf (5-10)
== END ==
PROVIDERS: Visit Provider Obstetrics & Gynecology
DX: N39.0 Urinary tract infection, site not specified (principal)
CPT/HCPCS: 81001; 87086; 87088

== ENCOUNTER → 2019-10-13 13:07 | Outpatient (CLI) | payer OTHER, SELFPAY ==
[2019-10-13 12:47] VITALS: BMI 28.8
[2019-10-13 13:33] LABS: Absolute Lymphocyte Count 1.44 X10^3/uL (0.83-4.51); Absolute Neutrophil Count 3.4 X10^3/uL (2.0-7.7); Basophil# 0.02 X10^3/uL; Basophil% 0.3 % (0-1); Eosinophil# 0.32 X10^3/uL; Eosinophils% 5.5 % (0-5); Hematocrit 35.9 % (37-47); Hemoglobin 11.3 g/dL (12.0-15.0); Lymphocyte # 1.44 X10^3/ul (4.0); Lymphocyte % 24.9 % (19-41); Mean Corp Hgb Conc 31.5 g/dL (32-36); Mean Corpuscular Hgb 29.5 pg (27.0-32.0); Mean Corpuscular Volume 93.7 fL (81-99); Mean Platelet Vol. 9.6 fl (6.2-12.0); Monocyte# 0.56 X10^3/uL; Monocyte% 9.7 % (0-10); NRBC Flagged by Analyzer 0 % (0-5); Neutrophil # 3.43 X10^3/uL (2.7-7.7); Neutrophil % 59.4 % (47-70); Platelet Count 255 K/mm3 (150-450); RBC Distribution Width CV 12.2 % (11.6-14.6); Red Blood Count 3.83 M/mm3 (4.2-5.4); White Blood Count 5.8 K/mm3 (4.4-11.0)
[2019-10-13 14:47] LABS: ALB/GLOB Ratio 0.9 RATIO (0.9-2.4); AST(SGOT) 25 U/L (15-37); Alanine Aminotransfer ALT/SGPT 37 U/L (13-56); Albumin, Serum 3.8 g/dL (3.2-5.0); Alkaline Phosphatase 83 U/L (45-117); Anion Gap 7 (5-15); BUN 9 mg/dL (7-18); BUN/Creat Ratio 11.8 RATIO (10-20); Calcium,Total 9.7 mg/dL (8.5-10.1); Chloride 108 mmol/L (98-107); Creatinine, Serum 0.76 mg/dL (0.55-1.02); EST Glomerular Filtration Rate 96 mL/min (>60); Est Glom Filt Rate - Afr Amer 116 mL/min (>60); Globulin 4.4 g/dL (2.2-4.2); Glucose 85 mg/dL (74-106); Potassium 3.9 mmol/L (3.5-5.1); Protein, Total 8.2 g/dL (6.4-8.2); Sodium Level 140 mmol/L (136-145)
== END ==
PROVIDERS: Family Provider Family Medicine; PCP Family Medicine; Referring Provider Surgery; Visit Provider Surgery
DX: R50.9 Fever, unspecified (principal); R10.9 Unspecified abdominal pain
CPT/HCPCS: 36415; 80053; 85025; 87040

== ENCOUNTER 2019-10-13 14:04 | Emergency (ER) | payer OTHER, SELFPAY ==
[2019-10-13 12:47] VITALS: BMI 28.8
[2019-10-13 14:06] VITALS: BP 118/80; PULSE 76; RESP 16; TEMP 36.2; O2SAT 97; BMI 27.3
--- NOTE | 2019-10-13 15:22 | CT_ITS ---
STUDY: CT ABDOMEN AND PELVIS WITH CONTRAST REASON FOR EXAM: Female, 28 years old. Lower abdominal pain. Fever. Vaginal delivery 4 weeks ago. RADIATION DOSAGE (If Supplied By Facility): CTDIvol = ( 17.07 ) mGy, DLP = ( 879.18 ) mGycm TECHNIQUE: Transaxial images were obtained from the dome of the diaphragm to the symphysis pubis with oral contrast. Oral and amp; IV Gastrografin and amp; 100mL Isovue-300 was administered. Sagittal and coronal images were reconstructed. Individualized dose optimization techniques were used for this CT. COMPARISON: Pelvic ultrasound, October 13, 2019. FINDINGS: The visualized lung bases are unremarkable. The visualized portions of the heart are within normal limits. Normal liver. Normal gallbladder and extrahepatic biliary system. Mild splenomegaly. Normal pancreas. Normal bilateral adrenal glands. Normal right kidney. There is slight prominence of the renal collecting system and proximal right ureter to the level of the pelvic brim. The ureters are not clearly seen beyond this level. Normal left kidney. Normal visualized left ureter. Normal visualized stomach. Normal small intestine. Normal colon. The appendix is visualized and appears normal. Normal abdominal aorta. Normal inferior vena cava. Normal retroperitoneum. Normal urinary bladder. The uterus is anteverted and midline. It is of normal size and contour. No evidence of endometrial fluid and/or other abnormality. Follicles are seen in both ovaries without cyst. There is no mass or. Minimal free fluid is seen in the left posterior cul-de-sac. There is no free air. Normal abdominal wall. Normal osseous structures. CT/Abdomen/Pelvis WITH Contrast IMPRESSION: 1. Mild splenomegaly. 2. Mild prominence of the right renal collecting system and proximal ureter. This may be residuals secondary to history of recent . 3. Normal-appearing uterus and adnexa. Electronically Signed: Chemo Bowden DO at 18:09 EST Tel [phone], Service support ,
--- NOTE | 2019-10-13 15:23 | ED.DCSUM_ITS ---
History of Present Illness Informant: Patient, PCP - Dr. Celaya - Abdominal Pain/Flank Pain Onset: Days - 3-4 Context: Gradual Onset Timing: Continuous Quality: Aching Location: - - across lower abd/pelvis Current Severity: Mild Maximum Severity: Moderate Worsened by: Nothing Relieved by: Nothing - Nausea/Vomiting/Emesis GI Symptom: Nausea. Negative for: Vomiting - Diarrhea/Melena/Hematochezia GI Symptom: Negative for: Diarrhea, Melena, Hematochezia Associated Symptoms: Negative for: Dysuria, Frequency, Hematuria, Urgency Narrative: Patient had an uncomplicated spontaneous vaginal delivery about 1 month ago, which was only complicated by the presence of a breast abscess on her left breast. She had it incised and drained by Dr. Celaya. She was scheduled to come back today for an operative intervention to evacuate blood and clots from that area, however upon inspection before taking her to the OR, it looks much better and the patient states he feels much better. However, she has been having lower abdominal pain and fevers for the past 3 or 4 days, which are unexplained. Additionally she was having coughing that has been nonproductive and myalgias. She states the myalgias are more painful than her abdominal pain. Occasional shortness of breath. <Lavon Dumas - Last Filed: 10/13/19 17:09> <Farrah Disla - Last Filed: 10/13/19 19:11> Chief Complaint: Abd Pain Past Medical History Smoking Status: Never smoker <Lavon Dumas - Last Filed: 10/13/19 17:09> <Farrah Disla - Last Filed: 10/13/19 19:11> - Allergies and Home Meds Allergies/Adverse Reactions: Allergies Latex, Natural Rubber Allergy (Verified 10/13/19 14:05) Other UTI Penicillins Allergy (Verified 10/13/19 14:05) Hives Primary Care Physician: Luís Celaya MD [STAFF PHYSICIAN] - Marietta Bermudez MD [STAFF PHYSICIAN] - Mei Hernandez PA-C [Primary Care Provider] - Review of Systems General: Denies: Chills, Fever, Sweats Eyes: Denies: Visual changes - bilaterally, Diplopia ENT: Denies: Rhinorrhea, Sore throat Cardiovascular: Denies: Chest pain, Palpitations Respiratory: Reports: Cough, - - left breast pain - improving. Denies: Dyspnea, Sputum, Dyspnea on exertion Gastrointestinal: Reports: Abdominal pain, Nausea. Denies: Vomiting, Diarrhea, Melena, Hematochezia Genitourinary: Denies: Dysuria, Hematuria, Frequency Musculoskeletal: Reports: Myalgias, Extremity Pain - bilat leg pain -- recent negative DVT u/s. Denies: Arthralgias, Neck pain, Back pain, Swelling Skin: Denies: Rash, Wounds Neurological: Denies: Headache, Weakness, Numbness <Lavon Dumas - Last Filed: 10/13/19 17:09> Physical Exam Vital Signs/Narrative: Vital Signs Temp Pulse Resp BP Pulse Ox 10/13/19 14:06 97.2 F L 76 16 118/80 97 Inital Vital Signs reviewed: Yes General: Well nourished, Well developed, No Acute Distress Head: Normocephalic, Atraumatic Eyes: Perrl, EOMI ENT: Moist mucous membranes, No rhinorrhea Neck: Supple, Nontender, No lymphadenopathy, No JVD Cardiovascular: Regular rate, Regular rhythm, No murmurs. Negative for: Tachycardia Respiratory: No distress, CTA bilaterally, Chest nontender, - - left lateral breast nontender, no erythema or fluctuance; well-healing aspiration site jsut lateral to areola. Abdomen: Soft, Nondistended, Normal bowel sounds, Tender - across lower abd, nonfocal. Negative for: Guarding, Rebound tenderness Back: Nontender, Normal Inspection Extremities: Nontender, No edema. Negative for: Edema, Calf Tenderness Skin: Normal color, No rash, No Trauma Neurological: Alert, Oriented x3, Cranial nerves II-XII grossly intact, Normal Strength, Normal Sensation Psychological: Normal affect, Normal Mood <Lavon Dumas - Last Filed: 10/13/19 17:09> Vital Signs/Narrative: Vital Signs Temp Pulse Resp BP Pulse Ox 10/13/19 18:00 98.5 F 73 16 114/75 98 10/13/19 16:05 82 16 116/78 100 <Farrah Disla - Last Filed: 10/13/19 19:11> Diagnostic/Tx/Re-eval - Medical Decision Making Labs from earlier today were reviewed and were very normal including a white blood count 5.7 and normal liver enzymes. Urinalysis from 3 days ago was negative with no pyuria or bacteriuria, there is no culture available. Chest x- ray to my interpretation 2 views is unremarkable/normal. I discussed with Dr. Bermudez, she agreed with getting an ultrasound to rule out retained products of conception in her uterus as potential cause for her discomfort. My suspicion for endometritis is very low, given that she states the pain is not bad and that the pain does not seem uterine to the patient, subjectively. At th is time she is very well-appearing. We are awaiting results of ultrasound and awaiting CT to be performed/read. Discussed with patient and , including getting a flu swab on as well to rule that out, but she declines as she was tested for that when she had the same symptoms 2 weeks ago, and prefers not to get the swab again. She did have influenza vaccine several months ago. I think this is fine, I think the chances of her having influenza are very low given how well she appears, and I think the chances of pulmonary embolus are low to given lack of tachycardia, hypoxemia, and the rest of her vital signs are normal as well, especially since she has had a cough with this illness. Patient checked out to oncoming physician. <Lavon Dumas - Last Filed: 10/13/19 17:09> Clinical Impression(s) from Imaging Studies Abdomen/Pelvis CT 10/13/19 15:22 IMPRESSION: 1. Mild splenomegaly. 2. Mild prominence of the right renal collecting system and proximal ureter. This may be residuals secondary to history of recent . 3. Normal-appearing uterus and adnexa. Electronically Signed: Chemo Bowden DO at 18:09 EST Tel [phone], Service support , Transvaginal US 10/13/19 15:53 IMPRESSION: 1. Normal. Uterus with fluid in the cervical canal. 2. Normal ovaries. 3. Minimal free fluid in the posterior cul-de-sac. Electronically Signed: Chemo Bowden DO at 17:25 EST Tel [phone], Service support , Chest X-Ray 10/13/19 16:45 IMPRESSION: Normal x-ray examination of the chest. Electronically Signed: Chemo Bowden DO at 17:17 EST Tel [phone], Service support , - Medical Decision Making Patient signed out to me to follow up on final CT and ultrasound. These do not show any acute process that could explain her symptoms. I do not think she has endometritis, appendicitis or abscess. Exact cause of her symptoms is not clear at this time. Did discuss the results with surgery on-call, Dr. Bui. She is comfortable with patient following up outpatient. Patient has normal blood work that was reviewed. Urine culture resulted which only showed mixed rosy. Likely this was a small amount of contamination. Patient is well-appearing when I evaluate her. She is comfortable with this plan. She will follow-up with surgery. Patient is counseled on signs and symptoms requiring return to the emergency room. Patient verbalizes agreement and understand this plan. Patient discharged home in stable and improved condition. <Farrah Disla - Last Filed: 10/13/19 19:11> ED Disposition <Lavon Dumas - Last Filed: 10/13/19 17:09> <Farrah Disla - Last Filed: 10/13/19 19:11> - Plan for ED Patient: Disposition: Home or Assisted Living Diagnosis: Lower abdominal pain Instructions: ABDOMINAL PAIN, Unknown Cause, (Female) Referrals: Mei Hernandez PA-C [Primary Care Provider] - Luís Celaya MD [STAFF PHYSICIAN] - Marietta Bermudez MD [STAFF PHYSICIAN] -
--- NOTE | 2019-10-13 15:53 | US_ITS ---
STUDY: ULTRASOUND TRANSVAGINAL CLINICAL: Female, 28 years old. Abdominal pain. Vaginal delivery 4 weeks ago. TECHNIQUE: Transvaginal COMPARISON: None. FINDINGS: Uterus is anteverted in midline measuring 7.7 x 7.1 x 5.3 cm. There is no evidence of myometrial masses. The endometrium measures 9.7 mm in thickness and is hyperechoic. There are no endometrial masses, and there is no fluid in the endometrial cavity. There is fluid in the cervical canal. Normal right ovary, measuring 3.0 x 2.3 x 1.6 cm cm. There are multiple follicles without a dominant cyst. Normal vascularity on Doppler imaging. Normal left ovary, measuring 3.0 x 2.5 x 1.7 cm. There are multiple follicles within 2 dominant cysts measuring 1.2 x 1.0 x 1.2 cm and 1.3 x 1.5 x 1.4 cm there is normal vascularity on Doppler imaging There is minimal free fluid in posterior cul-de-sac. Polycystic ovary disease: No. US/Transvaginal Non- IMPRESSION: 1. Normal. Uterus with fluid in the cervical canal. 2. Normal ovaries. 3. Minimal free fluid in the posterior cul-de-sac. Electronically Signed: Chemo Bowden DO at 17:25 EST Tel [phone], Service support ,
[2019-10-13] MEDS: 0.9% Normal Saline 1,000 ML 999 ML IV (15:55)
[2019-10-13 16:05] VITALS: BP 116/78; PULSE 82; RESP 16; O2SAT 100
--- NOTE | 2019-10-13 16:45 | RAD_ITS ---
STUDY: X-RAY CHEST REASON FOR EXAM: Female, 28 years old. Cough. Shortness of breath. TECHNIQUE: PA and lateral views of the chest. COMPARISON: None. FINDINGS: The lungs are clear and expanded. There is no demonstrated pleural abnormality. Normal size heart. Normal mediastinum and lorenzo. Normal visualized pulmonary arteries. Normal visualized aortic arch and descending thoracic aorta. Normal visualized thoracic spine. Normal visualized ribs, clavicles, and shoulders. There is no demonstrated abnormality of the visualized soft tissue structures of the upper abdomen. RAD/Chest PA and Lateral IMPRESSION: Normal x-ray examination of the chest. Electronically Signed: Chemo Bowden DO at 17:17 EST Tel [phone], Service support ,
[2019-10-13 18:00] VITALS: BP 114/75; PULSE 73; RESP 16; TEMP 36.9; O2SAT 98
== END 2019-10-13 19:42 | disposition home or self-care (01) ==
PROVIDERS: Emergency Provider Emergency Medicine; Family Provider Family Medicine; PCP Family Medicine
DX: O90.89 Other complications of the puerperium, not elsewhere classified (principal); R10.30 Lower abdominal pain, unspecified
CPT/HCPCS: 71046; 74177; 76830; 96360; 99285; J7030; Q9967; A4216; J2405

== ENCOUNTER 2019-11-04 11:47 | Day surgery (SDC) | payer OTHER, SELFPAY ==
[2019-10-13 08:28] VITALS: BMI 28.8
[2019-11-03 08:55] VITALS: BMI 27.3
[2019-11-04] VITALS (12 sets, daily range): BP systolic 119–140; BP diastolic 65–86; PULSE 57–106; RESP 16; TEMP 36.7–37.5; O2SAT 99–100; BMI 27.9
[2019-11-04] MEDS: Lactated Ringers 1,000 ML 100 ML IV (12:23)
[2019-11-04 12:38] LABS: Internal QC Validated? YES +Cl - CLEAR BKGD
[2019-11-04 12:39] LABS: Pregnancy, Urine Negative Negative
[2019-11-04] MEDS: Bupiv/Epi 0.5% Mpf 30 ML Vial (13:10)
--- NOTE | 2019-11-04 14:08 | OP.PCM_ITS ---
Problem List (1) Left breast abscess Status: Acute Report of Operation Date of Procedure: 11/04/19 Pre-Operative Diagnosis: Left breast abscess Post-Operative Diagnosis: Same Surgery/Procedure Performed:: Incision and drainage of left breast abscess Specimen's removed: Left breast abscess fluid for culture Drains: MACARIO to bulb suction Description of Procedure: The patient was brought back to the operating room and general anesthesia was induced. The left breast was prepped and draped in usual sterile fashion. An incision was marked in the lateral areolar border. The area was anesthetized with Marcaine. An incision was made at the border of the areola. The incision was deepened to the abscess cavity is electrocautery. The abscess was entered and the fluid was suctioned and sent for culture. The cavity was fully suctioned dry and forceps were used to make sure there were no loculations that were unbroken. The cavity was irrigated and suctioned once more. An incision was made in the lateral breast and a 7 Amharic round drain was placed through this and into the cavity. This was sutured in place using a 3-0 nylon suture. The skin was then closed with a running 4-0 Monocryl suture and the Histoacryl glue. The drain was then placed to bulb suction. A compressive bra was then applied. Patient was taken to PACU in stable condition and tolerated the procedure well. - Admit VTE Documentation VTE Mechan Device Prophylaxis: SCD's
--- NOTE | 2019-11-04 14:13 | PCM.HP.BLA ---
Problem List (1) Left breast abscess Status: Acute History and Physical Date of Admission: 11/04/19 Intake Vital Signs 11/03/19 BMI 27.3 Intake Visit Reasons: F/U Left Breast Abscess Drainage Chief Complaint: recheck breast Allergies Latex, Natural Rubber Allergy (Verified 11/03/19 08:53) Other Penicillins Allergy (Verified 11/03/19 08:53) Hives Medications acetaminophen 500 mg tablet 500 mg PO Q6H PRN 11/03/19 [History Confirmed 11/03/19] PFSH Medical History Abnormal ultrasound of breast (Acute) Left breast abscess (Acute) Heart murmur (Acute) Urinary tract infection (Acute) Mastitis (Acute) Surgical History Hx of wisdom tooth extraction (Acute) Family History Mother Breast cancer Diabetes Father Ulcerative colitis Social History (Updated 11/03/19 @ 08:[address] Luís Celaya MD) Smoking Status: Never smoker HPI HPI HPI: WILLIS GAUTAM, is a 29 F who presents to the office today for HPI HPI HPI: WILLIS GAUTAM, is a 29 F who presents to the office today for left breast pain. The patient has had multiple drainages of abscesses in the left breast but the last time she had an ultrasound showed thickened material likely hematoma. She was sent to the emergency room and had blood cultures as well as a CBC done which were both normal. She still complains of subjective fever and left breast pain. ROS General General: No weight change or fatigue Additional Details: Subjective fevers Breast Additional Details: Left breast pain Cardio Cardiovascular: No murmur, pacemaker, heart disease, atrial fibrillation, high blood pressure, heart attack, heart stent, palpitations, shortness of breat with exertion or chest pain Psych Psychiatric: No depression or anxiety Resp Respiratory: No shortness of breath, No sleep apnea, No cough, No COPD, No asthma, No emphysema, No wheezing Gastro Gastrointestinal: No abdominal pain, No nausea or vomiting, No diarrhea, No constipation, No blood in stool, No acid reflux, No hemorrhoids, No ulcers, No gallbladder problem, No black,tarry stools Juan Hematologic: No blood thinners Exam Const General: cooperative Orientation: alert, oriented x3 Chest Other: Left breast firmness Resp Effort & Inspection: normal respiratory effort Auscultation: clear to auscultation bilaterally Cardio Rate: regular rate Rhythm: regular rhythm Heart Sounds: no murmurs GI Inspection: non-distended Palpation: soft, nontender Assessment & Plan Problems 1. Hematoma of left breast N64.89 Plan The patient has having firmness and tenderness of the left breast. She does have a fluid collection in this left breast that appears thick on ultrasound. The last time I tried to drain it nothing came out. I offer the patient I&D in the operating room. I explained that I would make an incision lateral to the nipple and enter the cavity and suction a dry and leave a drain. I will also culture the contents. The patient understands the risks of bleeding and infection and was willing to proceed. Plan for I&D in the operating room tomorrow. Luís Celaya MD Pager: [facility] [address] [place] [address] [address] [place] [address] Office:
--- NOTE | 2019-11-04 14:14 | PCM.DC.BS ---
Discharge Diet: No Restrictions Discharge Activity: May Not Drive - for 2-3 days or while taking narcotic pain meds., May Shower May shower in (days): 1 Call your doctor if your incision/area has: Continuous Slow Oozing, Sudden Increased Bleeding, Increased Pain/ Swelling, Increased Redness, Foul Smelling Discharge, Swelling at the incision site Call your doctor if you observe: Fever of 101 or Higher Suture Line Care: Avoid Pulling/Pushing, Avoid Pinching/Bending Remove Dressing in (days):: 1 - Remove bulky dressing tomorrow. May leave any opsite dressing for 3-4 days. Keep dressing in place until your follow-up appointment. Drain: Suction Additional Dressing/Incision Instructions:: Strip drain a few times per day. Record daily output. Allergies/Adverse Reactions: Allergies Latex, Natural Rubber Allergy (Verified 11/04/19 12:00) Other UTI Penicillins Allergy (Verified 11/04/19 12:00) Hives Medications to take at Discharge Multivitamin [Multiple Vitamins] 1 ea PO DAILY 11/03/19 acetaminophen 500 mg tablet 500 mg PO Q6H PRN 11/03/19 Doxycycline 100 mg PO BID 7 Days #14 cap 11/04/19 Oxycodone HCl/Acetaminophen [Percocet 5-325 mg Tablet] 1 - 2 tab PO Q6H PRN 4 Days #20 tablet 11/04/19 The following prescriptions were given: Doxycycline 100 mg PO BID 7 Days #14 cap Transmission Status: Pending to [facility] Oxycodone HCl/Acetaminophen [Percocet 5-325 mg Tablet] 1 - 2 tab PO Q6H PRN 4 Days #20 tablet PRN Reason: Pain Score 4-10/10 Transmission Status: Sent to [facility] Please Follow Up With: Luís Celaya MD When: Please call to schedule 1 week follow up appointment. [phone]
== END 2019-11-04 16:10 | disposition home or self-care (01) ==
LOC: SDC 11:47 → AC 11:49
PROVIDERS: Anesthesiology; Visit Provider Surgery
PROC: (CPT 19020; principal; 2019-11-04 13:00)
DX: N61.1 Abscess of the breast and nipple (principal)
CPT/HCPCS: 00400; 19020; 81025; 87070; 87075; 87077; 87186; 87205; J7120; J2405

== ENCOUNTER → 2020-07-27 | Outpatient (CLI) | payer OTHER, SELFPAY ==
[2019-11-04 12:14] VITALS: BMI 27.9
[2020-07-27 09:00] LABS: ALB/GLOB Ratio 1.1 RATIO (0.9-2.4); AST(SGOT) 15 U/L (15-37); Alanine Aminotransfer ALT/SGPT 20 U/L (13-56); Albumin, Serum 3.9 g/dL (3.2-5.0); Alkaline Phosphatase 56 U/L (45-117); Anion Gap 6 (5-15); BUN 7 mg/dL (7-18); BUN/Creat Ratio 8.7 RATIO (10-20); Calcium,Total 8.8 mg/dL (8.5-10.1); Chloride 107 mmol/L (98-107); Cholesterol 146 mg/dL (200); Creatinine, Serum 0.81 mg/dL (0.55-1.02); EST Glomerular Filtration Rate 89 mL/min (>60); Est Glom Filt Rate - Afr Amer 108 mL/min (>60); Globulin 3.7 g/dL (2.2-4.2); Glucose 89 mg/dL (74-106); High Density Lipoprotein 46 mg/dL; Protein, Total 7.6 g/dL (6.4-8.2); Sodium Level 138 mmol/L (136-145); Triglycerides 96 mg/dL; Very Low Density Lipoprotein 19 mg/dL (5-40)
== END | disposition home or self-care (01) ==
PROVIDERS: PCP Family Medicine; Referring Provider Family Medicine; Visit Provider Family Medicine
DX: D89.1 Cryoglobulinemia (principal); R20.2 Paresthesia of skin; M62.81 Muscle weakness (generalized); Z13.1 Encounter for screening for diabetes mellitus; Z13.220 Encounter for screening for lipoid disorders
CPT/HCPCS: 36415; 80053; 80061; 82595; 86038

== ENCOUNTER 2020-10-21 11:00 | Outpatient (RCR) | payer OTHER, SELFPAY ==
[2019-11-04 12:14] VITALS: BMI 27.9
== END 2020-10-21 23:59 ==
LOC: IMMUN 11:00
PROVIDERS: PCP Family Medicine; Visit Provider Family Medicine
DX: Z23 Encounter for immunization (principal)
CPT/HCPCS: 0011A; 0012A; 91301

== ENCOUNTER 2021-03-16 17:13 | Outpatient (CLI) | payer OTHER, SELFPAY ==
[2019-11-04 12:14] VITALS: BMI 27.9
[2021-03-16 17:34] VITALS: BP 132/84; PULSE 90; TEMP 36.8; O2SAT 100
[2021-03-16 17:40] VITALS: BMI 34.9
[2021-03-16 18:27] LABS: Bacteria 0 SEEN /hpf (None Seen); Mucous, Urine 0 SEEN /hpf (<or=2+); Red Blood Cells-Urine 0 SEEN /hpf (0-5); Squamous Epithelial Cells - UA 0 SEEN /hpf (5-10); White Blood Cells 0 SEEN /hpf (0-5)
[2021-03-16 18:28] LABS: Color, Urine Yellow (Yellow); Glucose, Dipstick Normal (Normal); Ketone-Dipstick Negative (Negative); Leukocyte Esterase-Dipstick Negative /ul (Negative); Nitrite-Dipstick Negative (Negative); Occult Blood-Urine Negative /ul (Negative); Protein-Dipstick Negative (Negative); Specific Gravity, Urine 1.005 (1.002-1.030); Urine Bilirubin Dipstick Negative (Negative); Urine Clarity Clear (Clear); Urine Urobilinogen Normal (Normal); Urine pH 6.5 (5.0 - 8.0)
[2021-03-16 18:40] VITALS: BP 126/74; PULSE 77; TEMP 36.6; O2SAT 100
[2021-03-16 18:41] VITALS: TEMP 36.6
[2021-03-16] MEDS: Betamethasone/Betamethasone 30 MG/5 ML Vial 12 MG IM (19:22)
--- NOTE | 2021-03-16 19:22 | OB.TRI.NOTE ---
HPI - General HPI Narrative WILLIS GAUTAM, is a 30 F at 35.2 weeks gestation that presents to triage for contractions. Denies LOF or VB. Positive movement. Patient was seen in the office yesterday for contractions and CE completed at that time was closed, thick and high. She returns today with continued contractions. Rates pain 12/08 Maternal Data Information AMANDA Calculator Estimated Delivery Date Method Current WG Current Estimate 04/18/21 Manual 35w 2d PFSH PFSH Medical History (Updated 03/16/21 @ 20:34 by Danae Marc CNM) Abnormal ultrasound of breast Heart murmur Left breast abscess Mastitis Urinary tract infection Home Medications acetaminophen 500 mg tablet 500 mg PO Q6H PRN 11/03/19 [History Last Taken 03/14/21 20:00] multivitamin 1 ea PO DAILY 11/03/19 [History Last Taken 03/14/21 20:00] aspirin [Aspir-Low] 81 mg PO DAILY 03/16/21 [History Last Taken 03/14/21 20:00] magnesium 200 mg PO DAILY 03/16/21 [History Last Taken 03/14/21 20:00] Allergy/AdvReac Type Severity Reaction Status Date / Time Latex, Natural Rubber Allergy Other Verified 03/16/21 17:41 Penicillins Allergy Hives Verified 03/16/21 17:41 Family History Mother Breast cancer Diabetes Father Ulcerative colitis Surgical History Hx of wisdom tooth extraction Social History Smoking Status: Never smoker History Elective abortions Hx Para 0 Spontaneous abortions Hx # Term Pregnancies Ectopic pregnancies Hx # Pregnancies Multiple births # of living children ROS Eyes Eyes: Denies blurry vision Cardiovascular Cardiovascular: Reports none; Denies chest pain at rest, chest pain with activity or dizziness Respiratory/Chest Respiratory/Chest: Denies cough or dyspnea Gastrointestinal Gastrointestinal: Reports none and other; Denies diarrhea or vomiting Genitourinary Genitourinary: Denies dysuria Musculoskeletal Musculoskeletal: Reports none Integumentary Integumentary: Reports none; Denies rash Neurologic Neurologic: Denies dizziness, headache(s) or other visual disturbances Psychiatric Psychiatric: Reports none Physical Exam Const alert and no apparent distress General Appearance: cooperative Orientation / Consciousness: awake Exam Limitations: no limitations HEENT normocephalic Eyes General Eye: normal appearance of both eyes Neck full ROM Chest inspection of chest normal Resp normal respiratory effort and normal air movement Effort and Inspection: symmetric chest movement Auscultation: clear to auscultation bilaterally Cardio regular rate GI soft to palpation, non-tender and non-distended Inspection: and other Manual OB Exam: dilated 0.5, effaced and station -3 Back/Spine normal ROM Extremity full ROM, normal capillary refill and no calf tenderness Skin no rashes or lesions noted Neuro oriented x3 and CN's II-XII intact bilaterally Psych mental status grossly normal NST FHR Rate Baby A Baseline: 155 Variability:: Moderate Accelerations:: 15 x 15 Decelerations:: None NST Reactive:: Yes FHR Category:: Category I Uterine Activity:: Irregular- Palpate mild and relaxed in between Assessment & Plan (1) 35 weeks gestation of : (2) Uterine contractions: PLAN: CEFM Cat. 1 tracing - NST reactive UA collected and sent- negative CE- unchanged Celestone 12 mg IM X1 now and repeat in 24 hours Discussed plan of care with patient and and they agree Discharge home- patient to keep appointment in office on Sunday Dr. Adams notified and is collaborating physician
[2021-03-16 19:28] VITALS: BP 130/79; PULSE 68; TEMP 37.2
[2021-03-16 19:31] VITALS: TEMP 37.1; O2SAT 98
== END 2021-03-16 20:45 | disposition home or self-care (01) ==
LOC: WPOUT 17:25 → WP 17:26
PROVIDERS: PCP Family Medicine; Visit Provider Advanced Practice Midwife
DX: O62.4 Hypertonic, incoordinate, and prolonged uterine contractions (principal); Z3A.35 35 weeks gestation of pregnancy
CPT/HCPCS: 59025; 59050; 81001; 99218; G0378; J0702

== ENCOUNTER 2021-03-17 19:32 | Outpatient (CLI) | payer OTHER, SELFPAY ==
[2021-03-16 17:40] VITALS: BMI 34.9
[2021-03-17 19:44] VITALS: BMI 34.7
[2021-03-17] MEDS: Betamethasone/Betamethasone 30 MG/5 ML Vial 12 MG IM (20:10)
[2021-03-17 20:12] VITALS: BP 125/66; PULSE 80; TEMP 36.5; O2SAT 99
== END 2021-03-17 20:15 | disposition home or self-care (01) ==
LOC: WPOUT 19:38 → WP 19:39
PROVIDERS: PCP Family Medicine; Visit Provider Obstetrics & Gynecology
DX: O60.00 Preterm labor without delivery, unspecified trimester (principal)
CPT/HCPCS: 96372; 99218; G0378; J0702

== ENCOUNTER 2021-04-19 07:15 | Inpatient (IN) | payer OTHER, SELFPAY ==
[2021-04-19] VITALS (53 sets, daily range): BP systolic 103–142; BP diastolic 56–93; PULSE 65–193; RESP 16; TEMP 36.4–37.3; O2SAT 88–100; BMI 35.9
[2021-04-19] MEDS: Lactated Ringers 1,000 ML 50 ML IV (07:40)
[2021-04-19] MEDS: Oxytocin 30 units/NS 500 ml 30 UNITS/500 ML IV.SOLN IV (08:05)
[2021-04-19 08:06] LABS: Absolute Lymphocyte Count 1.41 X10^3/uL (0.83-4.51); Absolute Neutrophil Count 5.6 X10^3/uL (2.0-7.7); Basophil# 0.01 X10^3/uL; Basophil% 0.1 % (0-1); Eosinophil# 0.06 X10^3/uL; Eosinophils% 0.8 % (0-5); Hematocrit 32.7 % (37-47); Hemoglobin 10.4 g/dL (12.0-15.0); Lymphocyte # 1.41 X10^3/ul (0.83-4.51); Lymphocyte % 18.7 % (19-41); Mean Corp Hgb Conc 31.8 g/dL (32-36); Mean Corpuscular Hgb 28.1 pg (27.0-32.0); Mean Corpuscular Volume 88.4 fL (81-99); Mean Platelet Vol. 10.1 fl (6.2-12.0); Monocyte# 0.43 X10^3/uL; Monocyte% 5.7 % (0-10); NRBC Flagged by Analyzer 0 % (0-5); Neutrophil # 5.56 X10^3/uL (2.7-7.7); Neutrophil % 73.8 % (47-70); Platelet Count 264 K/mm3 (150-450); RBC Distribution Width SD 42.2 fl (35.1-43.9); White Blood Count 7.5 K/mm3 (4.4-11.0)
[2021-04-19 08:39] LABS: ALB/GLOB Ratio 0.7 RATIO (0.9-2.4); AST(SGOT) 17 U/L (15-37); Alanine Aminotransfer ALT/SGPT 17 U/L (13-56); Albumin, Serum 2.7 g/dL (3.2-5.0); Alkaline Phosphatase 176 U/L (45-117); Anion Gap 11 (5-15); BUN 9 mg/dL (7-18); BUN/Creat Ratio 11.4 RATIO (10-20); Calcium,Total 8.4 mg/dL (8.5-10.1); Chloride 108 mmol/L (98-107); Creatinine, Serum 0.79 mg/dL (0.55-1.02); EST Glomerular Filtration Rate 91 mL/min (>60); Est Glom Filt Rate - Afr Amer 110 mL/min (>60); Estimated Creatinine Clearance 102.18 ml/min; Globulin 3.8 g/dL (2.2-4.2); Glucose 108 mg/dL (74-106); Potassium 3.8 mmol/L (3.5-5.1); Protein, Total 6.5 g/dL (6.4-8.2); Sodium Level 139 mmol/L (136-145)
--- NOTE | 2021-04-19 08:42 | HP.PCM.OB_ITS ---
HPI - General General Date of Admission: 04/19/21 HPI Narrative WILLIS GAUTAM, is a 30 F who presents at 40w1d for induction of labor for gestational HTN. Asymptomatic today for preeclampsia. OB history of Gestational HTN and breast abscess . Maternal Data Information AMANDA Calculator Estimated Delivery Date Method Current WG Current Estimate 04/18/21 Manual 40w 1d Final AMANDA: 04/18/21 PFS PFS Medical History (Updated 04/19/21 @ 08:50 by Mary Ortiz CNM) Abnormal ultrasound of breast Gestational HTN Headache Heart murmur Left breast abscess Mastitis Urinary tract infection Home Medications multivitamin 1 ea PO DAILY 11/03/19 [History Last Taken 03/14/21 20:00] aspirin [Aspir-Low] 81 mg PO DAILY 03/16/21 [History Last Taken 04/17/21 22:00 81 mg] magnesium 200 mg PO DAILY 03/16/21 [History Last Taken 04/17/21 22:00 200 mg] pantoprazole [Protonix] 20 mg PO DAILY 03/17/21 [History Last Taken 04/18/21 22:00 20 mg] [id number] [Prenatabs FA] 1 tab PO DAILY 03/17/21 [History Last Taken 04/17/21 22:00 1 tab] Allergy/AdvReac Type Severity Reaction Status Date / Time Latex, Natural Rubber Allergy Other Verified 03/17/21 20:10 Penicillins Allergy Hives Verified 03/17/21 20:10 Family History Mother Breast cancer Diabetes Father Ulcerative colitis Surgical History (Updated 04/19/21 @ 08:24 by Radhames Menjivar) History of surgery Hx of wisdom tooth extraction Social History Smoking Status: Former smoker History Elective abortions Hx Para 1 Spontaneous abortions Hx # Term Pregnancies Ectopic pregnancies Hx # Pregnancies Multiple births # of living children NST FHR Rate Baby A Baseline: 145 Variability:: Moderate Accelerations:: 15 x 15 Decelerations:: None FHR Category:: Category I Uterine Activity:: Irregular, mild ROS Constitutional Constitutional: Reports systems reviewed and no addt'l complaints, except as documented; Denies headache(s) Eyes Eyes: Denies acute decrease in peripheral vision, blurry vision or change in vision ENT HEENT: Reports systems reviewed and no addt'l complaints, except as documented Cardiovascular Cardiovascular: Denies chest pain or dizziness Respiratory/Chest Respiratory/Chest: Denies cough, dyspnea, dyspnea on exertion, shortness of br eath at rest or shortness of breath with exertion Gastrointestinal Gastrointestinal: Denies abdominal pain, diarrhea, nausea or vomiting Genitourinary Genitourinary: Denies abdominal discomfort or movement Musculoskeletal Musculoskeletal: Denies limited range of motion Integumentary Integumentary: Reports systems reviewed and no addt'l complaints, except as documented Neurologic Neurologic: Reports systems reviewed and no addt'l complaints, except as documented Psychiatric Psychiatric: Reports systems reviewed and no addt'l complaints, except as docu mented Endocrine Endocrinology: Reports systems reviewed and no addt'l complaints, except as documented Hematologic/Lymphatic Hematologic/Lymphatic: Reports systems reviewed and no addt'l complaints, except as documented Allergic/Immunologic Allergic/Immunologic: Reports systems reviewed and no addt'l complaints, except as documented Vital Signs Vital Signs Vital Signs: 04/19/21 07:35 04/19/21 07:54 04/19/21 08:41 Temperature 98.9 F Pulse Rate 86 83 Blood Pressure 124/77 H 127/80 H BP Systolic 124 127 BP Diastolic 77 80 Weight Weight: 229 lb 0.964 oz Body Mass Index (BMI) 35.9 Physical Exam Const alert and oriented x3 General Appearance: cooperative Orientation / Consciousness: awake, oriented to person, oriented to place and oriented to time Exam Limitations: no limitations HEENT normocephalic Head and Scalp: normal to inspection, normocephalic and atraumatic Face and Sinus: normal facial exam Eyes General Eye: normal appearance of both eyes Neck full ROM Chest Chest: symmetrical chest wall rise Resp normal respiratory effort and normal air movement Auscultation: clear to auscultation bilaterally Cardio regular rate, regular rhythm, S1 normal heart sound, S2 normal heart sound, no murmurs, no rub, no gallops and no clicks GI normal to inspection, nondistended, normoactive bowel sounds and non-tender appearance of the vagina normal Narrative: cervical exam per nursing Bladder / Kidney Exam: no CVA tenderness Manual OB Exam: estimated gestational size appropriate, presentation cephalic, dilated 40, effaced 60 and station -2 Back/Spine normal ROM Extremity normal to inspection and full ROM General Extremity: edema bilateral Skin no rashes or lesions noted Neuro oriented x3, CN's II-XII intact bilaterally, moves all extremities and deep tendon reflexes 2+ bilaterally Sensorium / Orientation: awake, alert and oriented to person Motor Exam: clonus absent Deep Tendon Reflexes: Rt Patellar (L4): 2+ and Lt Patellar (L4): 2+ Labs Labs Labs: Blood Type O NEGATIVE Antibody Screen NEGATIVE Hct 32.7 % (37-47) L Hgb 10.4 g/dL (12.0-15.0) L Rubella IgG Antibody 82.6 IU/mL Hep Bs Antigen Negative (Negative) HIV 1&2 Antibody Non-Reactive (Nonreactive) C.trachomatis DNA (PCR) Negative (Negative) Glucose 1 Hr 50 gm 132 mg/dL (70-140) Rhogam given: Yes Miscellaneous Test Covid vaccination, no testing GBS negative Assessment & Plan (1) Gestational [-induced] hypertension without significant proteinuria, third trimester: (2) Encounter for induction of labor: PLAN: 1) Admit to labor and delivery 2) Routine labs, preeclampsia labs 3) Pitocin per protocol 4) GBS negative 5) COVID vaccination 6) LARC declines 7) Planning epidural for pain management 8) Bottle feeding 9) collaborative physician and notified of patient status
[2021-04-19 09:56] LABS: Protein, Urine (Random) 32.6 mg/dL (<11.9); Protein:Creat Ratio 118 mg/g CRE (0-200)
--- NOTE | 2021-04-19 12:40 | PN.OBGYN_ITS ---
Subjective Subjective Resting well in bed. Partner at bedside. Objective Data Objective Data Vital Signs: Vital Signs Temp Pulse BP Pulse Ox 98.1 F 72 120/79 97 04/19/21 10:39 04/19/21 11:47 04/19/21 11:47 04/19/21 11:47 Weight: 229 lb 0.964 oz Body Mass Index (BMI) 35.9 Intake & Output: Intake and Output for Last 24 Hours 04/17/21 04/18/21 04/19/21 23:59 23:59 23:59 Intake Total 124.93 / 124.93 Output Total 200 / 200 Balance -75.07 / -75.07 Lab / Micro Data Result Diagrams: 04/19/21 07:40 04/19/21 07:40 Labs: Laboratory Results - last 24 hr 04/19/21 07:40: WBC 7.5, RBC 3.70 L, Hgb 10.4 L, Hct 32.7 L, MCV 88.4, MCH 28.1, MCHC 31.8 L, RDW Std Deviation 42.2, RDW Coeff of Celena 13.0, Plt Count 264, MPV 10.1, Immature Gran % (Auto) 0.900, Neut % (Auto) 73.8 H, Lymph % (Auto) 18.7 L, [place] % (Auto) 5.7, Eos % (Auto) 0.8, Baso % (Auto) 0.1, Absolute Neuts (auto) 5.6, Absolute Lymphs (auto) 1.41, Nucleated RBC % 0 04/19/21 07:40: Blood Type O NEGATIVE, Antibody Screen NEGATIVE 04/19/21 07:40: Sodium 139, Potassium 3.8, Chloride 108 H, Carbon Dioxide 20.0 L , Anion Gap 11, BUN 9, Creatinine 0.79, Estim Creat Clear Calc 102.18, Est GFR (MDRD) Af Amer 110, Est GFR (MDRD) Non-Af 91, BUN/Creatinine Ratio 11.4, Glucose 108 H, Calcium 8.4 L, Total Bilirubin 0.30, AST 17, ALT 17, Alkaline Phosphatase 176 H, Total Protein 6.5, Albumin 2.7 L, Globulin 3.8, Albumin/Globulin Ratio 0.7 L 04/19/21 09:15: U Random Total Protein 32.6 H, Urine Creatinine 276.00, Protein/Creatinin Ratio 118 Physical Exam Narrative: AROM for small amount of clear fluid Manual OB Exam: presentation cephalic, dilated 4.5, effaced 60 and station -1 NST FHR Rate Baby A Baseline: 145 Variability:: Moderate Accelerations:: None and 15 x 15 Decelerations:: None FHR Category:: Category I Uterine Activity:: every 3-4 minutes, mild Assessment & Plan (1) Encounter for induction of labor: (2) Gestational [-induced] hypertension without significant proteinuria, third trimester: PLAN: 1) Continue with active management, pitocin at 14 mu's 2) AROM 3) Continuous EFM 4) Epidural for pain management upon request 5) updated on patient status
[2021-04-19] MEDS: Lactated Ringers 500 ML 999 ML IV ×2 (12:54→14:05)
[2021-04-19] MEDS: fentaNYL-bupivacaine (epidural) 100 ML BAG EPIDURAL (13:32)
[2021-04-19] MEDS: Ondansetron 4 MG/2 ML Vial IV (14:08)
[2021-04-19] MEDS: Lactated Ringers 1,000 ML 200 ML IV (14:38)
[2021-04-19] MEDS: Oxytocin 30 units/NS 500 ml 30 UNITS/500 ML IV.SOLN 334 UNITS IV (16:03)
--- NOTE | 2021-04-19 16:22 | EX.PCM.OBRPT ---
Assessment & Plan (1) (normal spontaneous vaginal delivery): (2) Cord around neck-deliver: Maternal Data Information AMANDA Calculator Estimated Delivery Date Method Current WG Current Estimate 04/18/21 Manual 40w 1d Vaginal Delivery Maternal Presentation Maternal Presentation: Medically Indicated Induction Type of Induction: Pitocin Medical Reason for Induction: Gestational Hypertension Operative Information Date of Procedure: 04/19/21 Pre-Operative Diagnosis: Induction of labor for GHTN Post-Operative Diagnosis: Surgery / Procedure Performed: Spontaneous Vaginal Delivery Type of Anesthesia: Epidural Estimated Blood Loss: 150 ml Time of Delivery: 16:03 Findings Description of Procedure: Progressed to complete dilation. Comforatble with epidural. of viable male over intact perineum. APGARS 8,9. Infant head delivered with body forthcoming, CAN x1 loose, delivered through. placed on maternal abdomen, strong cry, mouth and nares suctioned for secretion. Pitocin started for active third stage management. Placenta delivered intact via nahomi with expression, 3 vessel cord. Perineum inspected and intact, no repair. Fundus firm. EBL 150. Vaginal sweep completed by me. Sponge and instrument count correct. Mom and baby stable. Planning to bottle feed. notified of delivery. Presentation: LAWANDA Amniotic Membrane Rupture Type: Artificial Amniotic Fluid Description: Clear Placental Delivery Description: Spontaneous Placenta Disposition: [facility] Cord Vessel Description: 3 Vessels Cord Entanglement: Around neck x 1, loose Nuchal Cord Compression: Without compression Infant A Gender: Male (1 minute): 8 (5 minute): 9 Delayed Cord Clamping: Yes Post Vaginal Delivery Medications Given After Delivery: IV Pitocin Episiotomy Description: None Laceration: None Complication Complications: None
[2021-04-19] MEDS: 0.9% Saline Lock 10 ML Syringe IV (18:54)
[2021-04-19] MEDS: Acetaminophen 500 MG Tablet 1000 MG PO (23:06)
[2021-04-20] MEDS: Ibuprofen 600 MG Tablet PO ×3 (00:51→15:34)
--- NOTE | 2021-04-20 03:06 | NURSING ---
This RN assuming care of patient and at this time. Report received from Maksim ALVA.
[2021-04-20 05:13] VITALS: BP 108/43; PULSE 75; RESP 16; TEMP 36.4
[2021-04-20 05:13] LABS: Hematocrit 28.5 % (37-47); Hemoglobin 9.1 g/dL (12.0-15.0); Mean Corp Hgb Conc 31.9 g/dL (32-36); Mean Corpuscular Hgb 28.3 pg (27.0-32.0); Mean Corpuscular Volume 88.8 fL (81-99); Mean Platelet Vol. 9.7 fl (6.2-12.0); Platelet Count 212 K/mm3 (150-450); RBC Distribution Width CV 13.1 % (11.6-14.6); RBC Distribution Width SD 42.3 fl (35.1-43.9); Red Blood Count 3.21 M/mm3 (4.2-5.4); White Blood Count 8.4 K/mm3 (4.4-11.0)
[2021-04-20] MEDS: Acetaminophen 500 MG Tablet 1000 MG PO ×2 (05:26→11:31)
[2021-04-20] MEDS: Senna/Docusate Sodium 1 Tablet PO (07:56)
[2021-04-20 08:03] VITALS: BP 122/70; PULSE 77; RESP 16; TEMP 36.5
[2021-04-20 11:30] VITALS: BP 135/64; PULSE 78; RESP 16; TEMP 36.2
[2021-04-20] MEDS: Prenatal Vits Tablet 1 TABLET PO (12:04)
--- NOTE | 2021-04-20 12:33 | PCM.PN.OB ---
Subjective Subjective Pain well controlled, average lochia. Denies headache or visual changes. Objective Data Objective Data Vital Signs: Vital Signs Temp Pulse Resp BP Pulse Ox 97.2 F L 78 16 135/64 H 98 04/20/21 11:30 04/20/21 11:30 04/20/21 11:30 04/20/21 11:30 04/19/21 23:19 Oxygen Delivery Method Room Air Weight: 103.9 kg Body Mass Index (BMI) 35.9 Intake & Output: Intake and Output for Last 24 Hours 04/18/21 04/19/21 04/20/21 23:59 23:59 23:59 Intake Total 2282.30 / 2282.30 Output Total 1000 / 1000 Balance 1282.30 / 1282.30 Lab / Micro Data Result Diagrams: 04/20/21 05:05 04/19/21 07:40 Labs: Laboratory Results - last 24 hr 04/20/21 05:05: WBC 8.4, RBC 3.21 L, Hgb 9.1 L, Hct 28.5 L, MCV 88.8, MCH 28.3, MCHC 31.9 L, RDW Std Deviation 42.3, RDW Coeff of Celena 13.1, Plt Count 212, MPV 9.7 Physical Exam Narrative Extremities: 1+ edema, 2+ DTRs, no clonus Const alert and no apparent distress Narrative: Fundus firm, below umbilicus. Assessment & Plan (1) (normal spontaneous vaginal delivery): PLAN: Patient are doing well. is bottlefeeding and doing well. No evidence of preeclampsia. Blood pressures are stable. Okay to discharge home and follow-up next week in the office or return as needed.
--- NOTE | 2021-04-20 12:36 | PCM.DC ---
Discharge Instructions Activity May resume sexual activity in: 6 weeks Follow Up Care Please Follow Up With: Angy Adams MD When: Follow up with our office in 1-2 and 6 weeks or as needed. [phone] Test Results: Test results from this visit will be discussed in further detail at your follow-up appointment, if applicable. Discharge Plan Admission Admit Date/Time: 04/19/21 07:15 Primary Reason for Your Visit: Vaginal delivery Attending Provider: Mary Ortiz Primary Care Provider: Mei Hernandez Instructions Patient Instructions: After a Vaginal , After Delivery Concerns Discharge Orders/Prescriptions Prescriptions: New ibuprofen [ibuprofen] 600 MG tablet 600 mg PO Q6H PRN (Reason: Pain) 10 Days Qty: 30 RF: 1 Continued magnesium 200 mg Tablet 200 mg PO DAILY RF: 0 Prenatabs FA 29-1 mg Tablet 1 tab PO DAILY RF: 0 Discontinued multivitamin 1 EACH tablet 1 ea PO DAILY RF: 0 aspirin [Aspir-Low] 81 mg Tablet,Delayed Release (Dr/Ec) 81 mg PO DAILY RF: 0 pantoprazole [Protonix] 20 mg Tablet,Delayed Release (Dr/Ec) 20 mg PO DAILY RF: 0 Referrals / Follow Up: Mei Hernandez PA-C [Primary Care Provider] - Disposition Disposition (needs filled in before D/C Order can be placed): Home, Self Care
[2021-04-20 15:40] VITALS: BP 129/78; PULSE 74; RESP 16; TEMP 36.6
== END 2021-04-20 18:00 | disposition home or self-care (01) | DRG 807 ==
PROVIDERS: Admitting Provider Obstetrics & Gynecology; PCP Family Medicine; Referring Provider Advanced Practice Midwife; Visit Provider Advanced Practice Midwife
DX: O13.4 Gestational [pregnancy-induced] hypertension without significant proteinuria, complicating childbirth (principal); Z37.0 Single live birth; O69.81X0 Labor and delivery complicated by cord around neck, without compression, not applicable or unspecified; Z3A.40 40 weeks gestation of pregnancy
CPT/HCPCS: 59025; 59050; 80053; 82570; 84156; 85025; 85027; 86850; 86900; 86901; 99218; J7120; A4216; G0378; J2405

== ENCOUNTER → 2022-02-24 | Outpatient (CLI) | payer OTHER, SELFPAY ==
[2022-02-24 10:19] LABS: ALB/GLOB Ratio 1.2 RATIO (0.9-2.4); AST(SGOT) 14 U/L (15-37); Alanine Aminotransfer ALT/SGPT 19 U/L (13-56); Albumin, Serum 4.1 g/dL (3.2-5.0); Alkaline Phosphatase 51 U/L (45-117); Anion Gap 5 (5-15); BUN 13 mg/dL (7-18); BUN/Creat Ratio 17.2 RATIO (10-20); Chloride 105 mmol/L (98-107); Cholesterol 164 mg/dL (200); Creatinine, Serum 0.76 mg/dL (0.55-1.02); EST Glomerular Filtration Rate 95 mL/min (>60); Est Glom Filt Rate - Afr Amer 115 mL/min (>60); Globulin 3.5 g/dL (2.2-4.2); Glucose 85 mg/dL (74-106); High Density Lipoprotein 40 mg/dL; Potassium 4.3 mmol/L (3.5-5.1); Protein, Total 7.6 g/dL (6.4-8.2); Sodium Level 137 mmol/L (136-145); Triglycerides 106 mg/dL; Very Low Density Lipoprotein 21 mg/dL (5-40)
== END | disposition home or self-care (01) ==
LOC: LAB 08:43
PROVIDERS: PCP Family Medicine; Referring Provider Nurse Practitioner Family; Visit Provider Nurse Practitioner Family
DX: E66.3 Overweight (principal); Z13.220 Encounter for screening for lipoid disorders
CPT/HCPCS: 36415; 80053; 80061

== ENCOUNTER → 2022-11-02 | Outpatient (CLI) | payer SELFPAY | END | disposition home or self-care (01) | LOC: OPBD 14:22 | PROVIDERS: PCP Family Medicine | DX: E66.9 Obesity, unspecified (principal); Z68.30 Body mass index [BMI] 30.0-30.9, adult | CPT/HCPCS: 76499 ==

== ENCOUNTER → 2023-01-08 | Outpatient (CLI) | payer OTHER, SELFPAY ==
--- NOTE | 2023-01-08 10:50 | US_ITS ---
STUDY: ABDOMINAL ULTRASOUND - RIGHT UPPER QUADRANT REASON FOR VISIT: Female, 32 years old right upper quadrant postprandial pain TECHNIQUE: Ultrasound evaluation of the right upper quadrant was performed with real-time and static liang-scale imaging. TECHNICAL QUALITY: Adequate. COMPARISON: None. FINDINGS: Liver: The liver measures 17.0 cm. There is normal echogenicity of the liver. The bile ducts are within normal limits. There is hepatic color flow. The direction of portal flow is hepatopetal. There is no demonstrated mass lesion. Gallbladder: Normal distended gallbladder. The gallbladder wall measures 1.3 mm. There is a negative sonographic Rodriguez''s sign. There is no pericholecystic fluid. There are no gallstones. Common Bile Duct (C.B.D.): The common bile duct measures 4.1 mm. Pancreas: Normal size of the head, body and tail of the pancreas. There is normal echogenicity of the pancreas. There is no demonstrated pancreatic mass or cyst. Right Kidney: Normal size of the right kidney. The right kidney measures 12.2 x 5.1 x 4.2 cm. Normal renal cortex. The right cortex measures 1.2 cm. There is no demonstrated renal mass or cyst. There is no right hydronephrosis. US/Abdomen Limited IMPRESSION: Normal right upper quadrant ultrasound examination. Electronically Signed: Roshan Larsen MD at 11:36 EDT ,
== END | disposition home or self-care (01) ==
PROVIDERS: PCP Family Medicine; Referring Provider Nurse Practitioner Adult Health; Visit Provider Nurse Practitioner Adult Health
DX: R10.11 Right upper quadrant pain (principal)
CPT/HCPCS: 76705

== ENCOUNTER → 2023-02-15 | Outpatient (CLI) | payer OTHER, SELFPAY ==
--- NOTE | 2023-02-15 12:15 | CT_ITS ---
STUDY: CT ABDOMEN AND PELVIS WITH CONTRAST REASON FOR EXAM: Female, 32 years old. LLQ pain -- oral and IV RADIATION DOSAGE (If Supplied By Facility): CTDIvol = ( 14.04 ) mGy, DLP = ( 939.68 ) mGycm TECHNIQUE: Transaxial images were obtained from the dome of the diaphragm to the symphysis pubis without oral contrast. IV 100mL Isovue-300 was administered. Sagittal and coronal images were reconstructed. Individualized dose optimization techniques were used for this CT. COMPARISON: Comparison is made with prior study dated October 13, 2019. FINDINGS: The visualized lung bases are unremarkable. The visualized portions of the heart are within normal limits. Normal liver. Normal gallbladder and extrahepatic biliary system. Borderline splenomegaly. Normal pancreas. Normal bilateral adrenal glands. Normal right kidney. Normal left kidney. Normal visualized stomach. Normal small intestine. Normal colon. The appendix is visualized and appears normal. Normal abdominal aorta. Normal inferior vena cava. There is borderline retroperitoneal lymphadenopathy with enlarged nodes no greater than 10mm in the short axis diameter. Normal urinary bladder. There is a 2.7 cm x 3.3 cm septated cyst in the right ovary. There is a small umbilical hernia containing fat. Normal osseous structures. CT/Abdomen/Pelvis WITH Contrast IMPRESSION: 2.77 x 3.3 cm septated cyst in the right ovary. Borderline splenomegaly. Electronically Signed: Castillo Washington MD at 14:51 EDT ,
== END | disposition home or self-care (01) ==
LOC: CT 12:14
PROVIDERS: PCP Family Medicine; Referring Provider Nurse Practitioner Adult Health; Visit Provider Nurse Practitioner Adult Health
DX: R10.32 Left lower quadrant pain (principal); K52.9 Noninfective gastroenteritis and colitis, unspecified
CPT/HCPCS: 74177; Q9967

== ENCOUNTER 2023-02-19 10:31 | Day surgery (SDC) | payer OTHER, SELFPAY ==
[2023-02-19 10:52] VITALS: BP 124/75; PULSE 75; RESP 16; TEMP 37.4; O2SAT 100; BMI 31.4
[2023-02-19 10:56] LABS: Internal QC Validated? YES +Cl - CLEAR BKGD; Pregnancy, Urine Negative Negative
[2023-02-19] MEDS: Lactated Ringers 1,000 ML 15 ML IV (10:57)
--- NOTE | 2023-02-19 11:03 | PCM.HP.BLA ---
History and Physical Date of Admission: 02/19/23 32 F who presents to the office today to establish with GI for recurrent episodes of nausea that began Summer 2021; occurs especially after greasy foods, especially if sugary and processed; can have vomiting also, but can get some relief with Pepto Bismol; also gets diarrhea. No assoc abd pain. Happens about 2x per month. Denies heartburn, only had when . No dysphagia. No diarrhea, constipation, melena, hematochezia. Weight is stable. For years she has had an abdominal pain daily in the left periumbilical region, worse with palpation, no relieving factors. Not related to bowels. Father has [facility] [employer] sr strategy manager in foster care and adoption ROS Const Constitutional: Positive for fatigue and headache(s) ENT ENT: Positive for headache(s); No difficulty swallowing Gastro GI: Positive for abdominal pain and nausea/dyspepsia; No belching, bloating, change in bowel habits, change in stool character, coffee ground emesis, constipation, cramping, diarrhea, heartburn, difficulty swallowing, feeling full early, excessive flatus, incontinent of stools, Vomiting blood/hematemesis, Blood in stool, loose stools, Black,tarry stools, pain with swallowing, vomiting or other Musc Musculoskeletal: Positive for back pain, muscle cramps, numbness, stiffness and tingling; No joint pain Skin Skin: No yellowing of the eye or itchy eyes Neuro Neurology: Positive for headache(s), numbness and tingling Psych Psychiatric: Positive for anxiety and No depression Endo Endocrine: Positive for fatigue Aller/Imm Allergy/Immunologic: No itchy eyes Juan/Lymp Hematologic/Lymphatic: No easy bleeding or easy bruising Exam Const General: cooperative, healthy appearing and comfortable Orientation: alert, awake and oriented x3 HENMT Head: normal to inspection Eyes Sclera: sclerae normal Resp Effort & Inspection: normal respiratory effort GI Inspection: normal to inspection Palpation: soft, no hepatosplenomegaly, no masses and tender periumbilically (left) General: bladder normal to palpation Bimanual Exam- Vagina & Uterus: bladder normal to palpation Skin General: no rashes or lesions noted Neuro Speech: speech normal Gait: normal gait Psych Mood: euthymic mood Quality Reporting Tobacco Screening ([facility] 138) Smoking Status: Former smoker Assessment and Plan Assessment and Plan (1) Abdominal pain: ?Status:?Chronic ?Plan: 32 yr old female with at least 6 mos of recurrent intermittent episodes of postprandial nausea/vomiting/diarrhea, as well as a separate longstanding left periumbilical pain, and father with ulcerative colitis. Will get labs for inflammation, celiac, IBD--blood and stool tests; will call her with results. Will get RUQ US to eval gallbladder; if normal then consider HIDA. May need CT abd pel. Will schedule EGD and colonoscopy in case those are needed. (2) Postprandial nausea: ?Status:?Chronic ?Plan: see above (3) Postprandial diarrhea: ?Status:?Chronic ?Plan: see above ? ? ? Orders: Orders Miscellaneous Lab Procedure Today K52.9 - Noninfective gastroenteritis and colitis, unspecified, R10.9 - Unspecified abdominal pain, R11.0 - Nausea ? Comprehensive Metabolic Profil Today K52.9 - Noninfective gastroenteritis and colitis, unspecified, R10.9 - Unspecified abdominal pain, R11.0 - Nausea ? CRP Today K52.9 - Noninfective gastroenteritis and colitis, unspecified, R10.9 - Unspecified abdominal pain, R11.0 - Nausea ? LDH Today K52.9 - Noninfective gastroenteritis and colitis, unspecified, R10.9 - Unspecified abdominal pain, R11.0 - Nausea ? CBC W/Diff, Automated Today K52.9 - Noninfective gastroenteritis and colitis, unspecified, R10.9 - Unspecified abdominal pain, R11.0 - Nausea ? Erythrocyte Sed Rate Today K52.9 - Noninfective gastroenteritis and colitis, unspecified, R10.9 - Unspecified abdominal pain, R11.0 - Nausea ? NELL Comprehensive Panel Today K52.9 - Noninfective gastroenteritis and colitis, unspecified, R10.9 - Unspecified abdominal pain, R11.0 - Nausea ? Calprotectin, Stool Today K52.9 - Noninfective gastroenteritis and colitis, unspecified, R10.9 - Unspecified abdominal pain, R11.0 - Nausea ? Stool Lactoferrin/WBC Today K52.9 - Noninfective gastroenteritis and colitis, unspecified, R10.9 - Unspecified abdominal pain, R11.0 - Nausea ? ANCA Today K52.9 - Noninfective gastroenteritis and colitis, unspecified, R10.9 - Unspecified abdominal pain, R11.0 - Nausea ? Celiac Disease Profile Today K52.9 - Noninfective gastroenteritis and colitis, unspecified, R10.9 - Unspecified abdominal pain, R11.0 - Nausea ? Immunoglobulins G/A/M/E Today K52.9 - Noninfective gastroenteritis and colitis, unspecified, R10.9 - Unspecified abdominal pain, R11.0 - Nausea ? WENDY + Protein Elect, Serum Today K52.9 - Noninfective gastroenteritis and colitis, unspecified, R10.9 - Unspecified abdominal pain, R11.0 - Nausea ? Abdomen Complete Today K52.9 - Noninfective gastroenteritis and colitis, unspecified, R10.9 - Unspecified abdominal pain, R11.0 - Nausea ? Coding I have examined the patient and the H&P has been reviewed. There are no clinical changes since date of exam.
--- NOTE | 2023-02-19 11:30 | EGD_PTH ---
PATIENT: WILLIS GAUTAM LOC: EN U#:[id number] AGE/SX: 32/F ROOM: RE02/19/[address]: Dr. Topher Johnson DO : 1990 BED: DIS: 02/19/2023 SPEC #: [id number] RECD: 02/19/23 12:16 STATUS: SUN RECaren #: [id number] JOHN: 02/19/23 11:[address]: Topher Johnson DEPT: SURGICAL PATHOLOGY RECD BY: Cindy Armenta ENTERED: 02/19/23 12:54 SP TYPE: EGD BIOPSY OT DR: Mei Hernandez PA-C Tissues: A - Ileum, NOS B - Gastric mucous membrane C - Esophagus, NOS D - Ileum, NOS E - Sigmoid colon biopsy Procedures: Special Stain Group II Surgery Specimen Level IV Alcian Blue/PAS (control) HEADER OPERATION: Colonoscopy with biopsy, EGD ([facility]) with biopsy PRE-OP DIAGNOSIS: Abdominal pain TISSUE SUBMITTED: A ? Terminal ileum biopsy, B ? Gastric body biopsy, C ? Distal esophagus biopsy, D ? Terminal ileum biopsy, E ? Sigmoid colon biopsy MICROSCOPIC DIAGNOSIS A. Terminal ileum, biopsy: No pathologic change. B. Gastric body, biopsy: Mild chronic gastritis. See comment. C. Distal esophagus, biopsy: Gastroesophageal junctional mucosa with mild chronic inflammation. Consistent with reflux esophagitis. No evidence of goblet cell metaplasia. See comment. D. Terminal ileum, biopsy: No pathologic change. E. Sigmoid colon, biopsy: No pathologic change. AM:brody 02/20/2023 COMMENT B. The results of immunohistochemistry for Helicobacter pylori will be reported separately ([id number]). C. Alcian blue/PAS stain with matched control supports the above diagnosis. MICROSCOPIC DESCRIPTION Slides are reviewed. GROSS DESCRIPTION A - Received in fixative is one container labeled with the patient's name and designated terminal ileum biopsy. The specimen consists of two irregular fragments of light martini soft tissue that in aggregate measure 0.8 x 0.4 x 0.1 cm. The specimen is totally submitted in one cassette. B - Received in fixative is one container labeled with the patient's name and designated gastric body biopsy. The specimen consists of two irregular fragments of light martini soft tissue that in aggregate measure 0.8 x 0.5 x 0.1 cm. The specimen is totally submitted in one cassette. C - Received in fixative is one container labeled with the patient's name and designated distal esophagus. The specimen consists of two irregular fragments of light martini soft tissue that in aggregate measure 0.8 x 0.5 x 0.1 cm. The specimen is totally submitted in one cassette. D - Received in fixative is one container labeled with the patient's name and designated terminal ileum biopsy. The specimen consists of two irregular fragments of light martini soft tissue that in aggregate measure 0.8 x 0.5 x 0.1 cm. The specimen is totally submitted in one cassette. E - Received in fixative is one container labeled with the patient's name and designated sigmoid colon biopsy. The specimen consists of two irregular fragments of light martini soft tissue that in aggregate measure 0.6 x 0.3 x 0.1 cm. The specimen is totally submitted in one cassette. / SJ:rg 02/19/2023 TC:3 CPT: 17314 x5, 25179
--- NOTE | 2023-02-19 11:30 | IMM_PTH ---
PATIENT: WILLIS GAUTAM LOC: EN U#:[id number] AGE/SX: 32/F ROOM: RE02/19/[address]: Dr. Topher Johnson DO : 1990 BED: DIS: 02/19/2023 SPEC #: [id number] RECD: 02/19/23 13:03 STATUS: SUN REQ #: [id number] JOHN: 02/19/23 11:[address]: Topher Johnson DEPT: IMMUNOHISTOCHEMISTRY RECD BY: Joanne Nance ENTERED: 02/19/23 13:04 SP TYPE: IMMUNO OTHR DR: Mei Hernandez PA-C Tissues: B - Stomach, NOS Procedures: H Pylori (initial) PHYSICIAN & INSTITUTION [place] [address] SPECIMEN INFORMATION: Tissue Source: B ? Gastric body Clinical Info: Abdominal pain Specimen Number: [id number] CPT code: 75788 METHODOLOGY: Deparaffinized sections of prefer/formalin-fixed tissue or PAP/DQ stained slides are incubated with monoclonal/polyclonal antibodies/oligonucleotide probes. Localization is made via biotin free immunoperoxidase method. Appropriate controls are performed and reacted as expected. Results on target cell population are indicated in the following table: RESULTS: ANTIBODY / CLONE RESULT Block B H Pylori (polyclonal) negative These tests were developed and their performance characteristics determined by [facility]. They may not have been cleared or approved by the U.S. Food and Drug Administration. The FDA has determined that such clearance or approval is not necessary. The above immunohistochemical/dualISH markers are ordered and reviewed by the Pathologist. INTERPRETATION: B. Gastric body, biopsy: Negative for Helicobacter pylori organisms. AM:brody 02/20/2023
[2023-02-19 12:01] VITALS: BP 112/57; BP 124/75; PULSE 91; RESP 18; TEMP 36.6; O2SAT 94
--- NOTE | 2023-02-19 12:04 | OP.EGD_ITS ---
Patient Name: Arleen Clark Procedure Date: 02/19/2023 11:23 AM Date of : 1990 Age: 32 Procedure: Upper GI endoscopy Indications: Epigastric abdominal pain, Functional Dyspepsia Providers: Topher Johnson DO Medicines: Monitored Anesthesia Care Patient Profile: This is a 32 year old female. Refer to note in patient chart for documentation of history and physical. Patient has symptoms of chronic abdominal cramping, chronic abdominal distention and chronic epigastric abdominal pain. Complications: No immediate complications. Procedure: Pre-Anesthesia Assessment: - Prior to the procedure, a History and Physical was performed, and patient medications and allergies were reviewed. The risks and benefits of the procedure and the sedation options and risks were discussed with the patient. All questions were answered and informed consent was obtained. Patient identification and proposed procedure were verified by the physician in the pre-procedure area. Mental Status Examination: alert and oriented. Airway Examination: normal oropharyngeal airway and neck mobility. Respiratory Examination: clear to auscultation. CV Examination: normal. Prophylactic Antibiotics: The patient does not require prophylactic antibiotics. Prior Anticoagulants: The patient has taken no previous anticoagulant or antiplatelet agents. ASA Grade Assessment: II - A patient with mild systemic disease. After reviewing the risks and benefits, the patient was deemed in satisfactory condition to undergo the procedure. The anesthesia plan was to use monitored anesthesia care (MAC). Immediately prior to administration of medications, the patient was re-assessed for adequacy to receive sedatives. The heart rate, respiratory rate, oxygen saturations, blood pressure, adequacy of pulmonary ventilation, and response to care were monitored throughout the procedure. The physical status of the patient was re-assessed after the procedure. After obtaining informed consent, the endoscope was passed under direct vision. Throughout the procedure, the patient's blood pressure, pulse, and oxygen saturations were monitored continuously. The colonoscope was introduced through the mouth, and advanced to the second part of duodenum. The upper GI endoscopy was accomplished without difficulty. The patient tolerated the procedure well. Scope In: 11:34:19 AM Scope Out: 11:39:16 AM Total Procedure Duration Time 0 hours 4 minutes 57 seconds Findings: The Z-line was irregular and was found 40 cm from the incisors. Biopsies were taken with a cold forceps for histology. Verification of patient identification for the specimen was done. Estimated blood loss was minimal. Patchy mildly erythematous mucosa without bleeding was found in the gastric body. Biopsies were taken with a cold forceps for histology. Verification of patient identification for the specimen was done. Estimated blood loss was minimal. No gross lesions were noted in the second portion of the duodenum. Biopsies were taken with a cold forceps for histology. Verification of patient identification for the specimen was done. Estimated blood loss was minimal. A single area of ectopic gastric mucosa was found in the proximal esophagus, 19 cm from the incisors. Impression: - Z-line irregular, 40 cm from the incisors. Biopsied. - Erythematous mucosa in the gastric body. Biopsied. - No gross lesions in the second portion of the duodenum. Biopsied. Recommendation: - Discharge patient to home. - Resume previous diet. - Continue present medications. - Await pathology results. Procedure Code(s): --- Professional --- 55307, Esophagogastroduodenoscopy, flexible, transoral; with biopsy, single or multiple CPT copyright 2017 [employer]. All rights reserved. The codes documented in this report are preliminary and upon member of congress review may be revised to meet current compliance requirements. Topher Johnson DO 02/19/2023 12:04:20 PM This report has been signed electronically. Number of Addenda: 0 Note Initiated On: 02/19/2023 11:23 AM
--- NOTE | 2023-02-19 12:04 | OP.CCLET_ITS ---
02/19/2023 [facility] Re : Upper GI endoscopy procedure for Arleen Hernandez This procedure was performed on Sunday, February 19, 2023. My impressions and recommendations are as follows: Impressions : - Z-line irregular, 40 cm from the incisors. Biopsied. - Erythematous mucosa in the gastric body. Biopsied. - No gross lesions in the second portion of the duodenum. Biopsied. Recommendations : - Discharge patient to home. - Resume previous diet. - Continue present medications. - Await pathology results. My findings are described in the full procedure note, which is enclosed. If I can be of further assistance, please feel free to contact me at . Sincerely, Topher Johnson, 02/19/2023 12:04:20 PM This report has been signed electronically.
[2023-02-19 12:05] VITALS: BP 107/75; BP 124/75; PULSE 84; PULSE 87; RESP 16; O2SAT 96; O2SAT 99
--- NOTE | 2023-02-19 12:08 | OP.COLON_ITS ---
Patient Name: Arleen Clark Procedure Date: 02/19/2023 11:39 AM Date of : 1990 Age: 32 Procedure: Colonoscopy Indications: Epigastric abdominal pain, Abdominal pain in the left lower quadrant, Clinically significant diarrhea of unexplained origin Providers: Topher Johnson DO Medicines: Monitored Anesthesia Care Patient Profile: This is a 32 year old female. Refer to note in patient chart for documentation of history and physical. Patient has symptoms of chronic abdominal cramping, chronic abdominal distention and chronic epigastric abdominal pain. Last Colonoscopy: none. The patient's first colonoscopy is today. Complications: No immediate complications. Procedure: Pre-Anesthesia Assessment: - Prior to the procedure, a History and Physical was performed, and patient medications and allergies were reviewed. The risks and benefits of the procedure and the sedation options and risks were discussed with the patient. All questions were answered and informed consent was obtained. Patient identification and proposed procedure were verified by the physician in the pre-procedure area. Mental Status Examination: alert and oriented. Airway Examination: normal oropharyngeal airway and neck mobility. Respiratory Examination: clear to auscultation. CV Examination: normal. Prophylactic Antibiotics: The patient does not require prophylactic antibiotics. Prior Anticoagulants: The patient has taken no previous anticoagulant or antiplatelet agents. ASA Grade Assessment: II - A patient with mild systemic disease. After reviewing the risks and benefits, the patient was deemed in satisfactory condition to undergo the procedure. The anesthesia plan was to use monitored anesthesia care (MAC). Immediately prior to administration of medications, the patient was re-assessed for adequacy to receive sedatives. The heart rate, respiratory rate, oxygen saturations, blood pressure, adequacy of pulmonary ventilation, and response to care were monitored throughout the procedure. The physical status of the patient was re-assessed after the procedure. After I obtained informed consent, the scope was passed under direct vision. Throughout the procedure, the patient's blood pressure, pulse, and oxygen saturations were monitored continuously. The colonoscope was introduced through the anus and advanced to the terminal ileum. The colonoscopy was performed without difficulty. The patient tolerated the procedure well. The quality of the bowel preparation was adequate. Scope In: 11:41:44 AM Scope Withdrawal Time 0 hours 10 minutes 3 seconds Scope Out: 11:56:01 AM Total Procedure Duration Time 0 hours 14 minutes 17 seconds Findings: The perianal and digital rectal examinations were normal. An area of moderately congested mucosa was found in the recto-sigmoid colon, in the sigmoid colon and in the descending colon. Biopsies were taken with a cold forceps for histology. Verification of patient identification for the specimen was done. Estimated blood loss was minimal. The terminal ileum appeared normal. Biopsies were taken with a cold forceps for histology. Verification of patient identification for the specimen was done. Estimated blood loss was minimal. Impression: - Congested mucosa in the recto-sigmoid colon, in the sigmoid colon and in the descending colon. Biopsied. - The examined portion of the ileum was normal. Biopsied. Recommendation: - Discharge patient to home. - Resume previous diet. - Continue present medications. - Await pathology results. - Repeat colonoscopy is recommended. The colonoscopy date will be determined after pathology results from today's exam become available for review. Procedure Code(s): --- Professional --- 51223, Colonoscopy, flexible; with biopsy, single or multiple CPT copyright 2017 [employer]. All rights reserved. The codes documented in this report are preliminary and upon enterprise analyst review may be revised to meet current compliance requirements. Topher Johnson DO 02/19/2023 12:08:07 PM This report has been signed electronically. Number of Addenda: 0 Note Initiated On: 02/19/2023 11:39 AM
--- NOTE | 2023-02-19 12:08 | OP.CCLET_ITS ---
02/19/2023 [facility] Re : Colonoscopy procedure for Arleen Hernandez This procedure was performed on Sunday, February 19, 2023. My impressions and recommendations are as follows: Impressions : - Congested mucosa in the recto-sigmoid colon, in the sigmoid colon and in the descending colon. Biopsied. - The examined portion of the ileum was normal. Biopsied. Recommendations : - Discharge patient to home. - Resume previous diet. - Continue present medications. - Await pathology results. - Repeat colonoscopy is recommended. The colonoscopy date will be determined after pathology results from today's exam become available for review. My findings are described in the full procedure note, which is enclosed. If I can be of further assistance, please feel free to contact me at . Sincerely, Topher Johnson, 02/19/2023 12:08:07 PM This report has been signed electronically.
[2023-02-19 12:10] VITALS: BP 124/75; BP 99/83; PULSE 78; RESP 16; O2SAT 98
[2023-02-19 12:17] VITALS: BP 124/75; BP 97/65; PULSE 60; RESP 16; TEMP 36.4; O2SAT 99
[2023-02-19 12:38] VITALS: BP 124/75
== END 2023-02-19 12:52 | disposition home or self-care (01) ==
LOC: EN 10:35 → AC 10:37
PROVIDERS: Anesthesiology; PCP Family Medicine; Referring Provider Family Medicine; Visit Provider Internal Medicine Gastroenterology
PROC: 0DJD8ZZ Inspection of Lower Intestinal Tract, Via Natural or Artificial Opening Endoscopic (ICD-10-PCS; CPT 45378; principal; 2023-02-19 11:25)
DX: K29.50 Unspecified chronic gastritis without bleeding (principal); Z87.891 Personal history of nicotine dependence; K52.9 Noninfective gastroenteritis and colitis, unspecified; K21.00 Gastro-esophageal reflux disease with esophagitis, without bleeding
CPT/HCPCS: 45380; 43239; 81025; 88305; 88313; 88342; J7120; J2405

== ENCOUNTER → 2023-02-21 | Outpatient (CLI) | payer OTHER, SELFPAY ==
[2023-02-21 09:13] LABS: AST(SGOT) 11 U/L (15-37); Alanine Aminotransfer ALT/SGPT 16 U/L (13-56); Albumin, Serum 3.5 g/dL (3.2-5.0); Alkaline Phosphatase 47 U/L (45-117); Anion Gap 5 (5-15); BUN 13 mg/dL (7-18); BUN/Creat Ratio 17.6 RATIO (10-20); Calcium,Total 8.8 mg/dL (8.5-10.1); Chloride 110 mmol/L (98-107); Cholesterol 134 mg/dL (200); Creatinine, Serum 0.74 mg/dL (0.55-1.02); EST Glomerular Filtration Rate 98 mL/min (>60); Est Glom Filt Rate - Afr Amer 118 mL/min (>60); Globulin 3.4 g/dL (2.2-4.2); Glucose 92 mg/dL (74-106); High Density Lipoprotein 36 mg/dL; Potassium 4.3 mmol/L (3.5-5.1); Protein, Total 6.9 g/dL (6.4-8.2); Sodium Level 141 mmol/L (136-145); Triglycerides 106 mg/dL; Very Low Density Lipoprotein 21 mg/dL (5-40)
== END | disposition home or self-care (01) ==
LOC: LAB 07:50
PROVIDERS: PCP Family Medicine; Referring Provider Family Medicine; Visit Provider Family Medicine
DX: Z13.220 Encounter for screening for lipoid disorders (principal); Z13.1 Encounter for screening for diabetes mellitus
CPT/HCPCS: 36415; 80053; 80061

== ENCOUNTER → 2023-03-07 | Outpatient (CLI) | payer OTHER, SELFPAY ==
[2023-03-12 18:07] LABS: Beef <0.10 kU/L (Class 0); Chocolate <0.10 kU/L (Class 0); Corn <0.10 kU/L (Class 0); Egg, Whole <0.10 kU/L (Class 0); Milk (Cow) <0.10 kU/L (Class 0); Peanut <0.10 kU/L (Class 0); Pork <0.10 kU/L (Class 0); Soybean <0.10 kU/L (Class 0); Wheat <0.10 kU/L (Class 0)
== END | disposition home or self-care (01) ==
LOC: LAB 08:46
PROVIDERS: PCP Family Medicine; Visit Provider Nurse Practitioner Adult Health
DX: K29.70 Gastritis, unspecified, without bleeding (principal)
CPT/HCPCS: 36415; 86003; 86005

== ENCOUNTER → 2023-03-14 | Outpatient (CLI) | payer OTHER, SELFPAY ==
--- NOTE | 2023-03-14 07:33 | US_ITS ---
STUDY: ABDOMINAL ULTRASOUND -left UPPER QUADRANT REASON FOR VISIT: Female, 32 years old ABD PAIN TECHNIQUE: Ultrasound evaluation of the left upper quadrant was performed with real-time and static liang-scale imaging. TECHNICAL QUALITY: Adequate. COMPARISON: CT scan 02/15/2023. FINDINGS: Spleen measures 12.0 x 5.3 x 5.4 cm which is within normal limits for this patient''s age. Normal appearance and echogenicity of the spleen. Electronically Signed: Shalom Rutherford MD at 20:40 EDT , US/Abdomen Limited IMPRESSION: undefined
== END | disposition home or self-care (01) ==
LOC: US 07:24
PROVIDERS: PCP Family Medicine; Referring Provider Family Medicine; Visit Provider Family Medicine
DX: R16.1 Splenomegaly, not elsewhere classified (principal)
CPT/HCPCS: 76705

== ENCOUNTER → 2023-10-25 | Outpatient (CLI) | payer OTHER, SELFPAY ==
--- NOTE | 2023-10-25 12:48 | NM_ITS ---
CLINICAL: 32-year-old female with history of abdominal pain and nausea. SEMI-SOLID PHASE 99m Tc SULFUR COLLOID GASTRIC EMPTYING STUDY COMPARISON: None available FINDINGS: The patient was administered 1.0 mCi of 99m Tc sulfur colloid mixed with oatmeal and consumed per os. Image acquisitions in the anterior-posterior projections were obtained for 60 minutes. There is prompt visualization of the stomach. There is no gastroesophageal reflux identified. The T ? linear fit was calculated to be 48.77 minutes, (Normal: 12-56 minutes). NM/Gastric Emptying Study IMPRESSION: 1. NORMAL 99m Tc sulfur colloid semi-solid phase (oatmeal) gastric emptying imaging examination. A. There is normal and preserved semi-solid phase gastric emptying compared to normal controls. (Liliana et al, J Nucl Med Tech 38: 186, 2010). Electronically Signed: Eladio Wasserman DO at 23:18 EST ,
== END | disposition home or self-care (01) ==
LOC: NM 12:43
PROVIDERS: PCP Family Medicine; Referring Provider Internal Medicine Gastroenterology; Visit Provider Internal Medicine Gastroenterology
DX: K29.70 Gastritis, unspecified, without bleeding (principal)
CPT/HCPCS: 78264; A9541

== ENCOUNTER → 2023-11-27 | Outpatient (CLI) | payer OTHER, SELFPAY ==
--- NOTE | 2023-11-27 12:54 | US_ITS ---
STUDY: FIRST TRIMESTER OBSTETRICAL ULTRASOUND (TWINS) REASON FOR EXAM: Female, 33 years old. LMP: October 15, 2023. persistent LLQ pain, concern for ectopic TECHNIQUE: Transabdominal and Transvaginal TECHNICAL QUALITY: Adequate. COMPARISON: None. FINDINGS: There are two demonstrated intrauterine gestational sacs. . BABY A The mean sac diameter (MSD) measure 1.85 cm indicating an estimated gestational age (EGA) of 6 weeks, 5 days. There is a visualized yolk sac. The yolk sac measures 2.4 mm. There is visualization of an embryo. The crown-rump length (CRL) measures 4.2 mm, indicating an estimated gestational age (EGA) of 6 weeks, 2 days. The estimated gestation age (EGA) by US is 6 weeks, 1 days. The estimated date of delivery (AMANDA) by US is July 21, 2024. There is demonstrated cardiac activity with a heart rate 114 bpm. BABY B The mean sac diameter (MSD) measure 1.85 cm, indicating an estimated gestational age (EGA) of 6 weeks, 5 days. There is a visualized yolk sac. The yolk sac measures 2.2 mm. There is visualization of an embryo. The crown-rump length (CRL) measures 4.6 mm, indicating an estimated gestational age (EGA) of 6 weeks, 3 days. The estimated gestation age (EGA) by US is 6 weeks, 3 days. The estimated date of delivery (AMANDA) by US is July 19, 2024. There is demonstrated cardiac activity with a heart rate 117 bpm. The uterus measures 8.9 cm x 6.1 cm x 6.1 cm. The right ovary measures 3.3 cm x 2.7 cm by 2 cm. A follicle is seen within it measuring 2.1 cm x 1.8 cm x 1.2 cm. The left ovary measures 2 cm x 2.1 cm x 2.5 cm. US/Transvaginal w/Preg US IMPRESSION: Intrauterine twin gestation. Baby A has a gestational age of 6 weeks and 4 days. Baby B has a gestational age of 6 weeks and 3 days. Electronically Signed: Castillo Washington MD at 15:14 EST ,
== END | disposition home or self-care (01) ==
LOC: US 12:51
PROVIDERS: PCP Family Medicine; Referring Provider Advanced Practice Midwife; Visit Provider Advanced Practice Midwife
DX: O26.891 Other specified pregnancy related conditions, first trimester (principal); R10.32 Left lower quadrant pain; Z3A.00 Weeks of gestation of pregnancy not specified
CPT/HCPCS: 76817

== ENCOUNTER → 2023-11-30 | Outpatient (CLI) | payer OTHER, SELFPAY ==
[2023-12-03 22:07] LABS: Chlamydia By Nucleic Acid AMP Negative (Negative); Gonococcus By Nucleic Acid AMP Negative (Negative)
== END | disposition home or self-care (01) ==
LOC: LABSPEC 16:30
PROVIDERS: PCP Family Medicine; Referring Provider Advanced Practice Midwife; Visit Provider Advanced Practice Midwife
DX: Z34.90 Encounter for supervision of normal pregnancy, unspecified, unspecified trimester (principal); Z3A.00 Weeks of gestation of pregnancy not specified
CPT/HCPCS: 87077; 87086; 87088; 87186; 87491; 87591

== ENCOUNTER → 2023-12-24 | Outpatient (CLI) | payer OTHER, SELFPAY ==
[2023-12-24 14:58] LABS: Absolute Neutrophil Count 4.1 X10^3/uL (2.0-7.7); Basophil# 0.01 X10^3/uL; Basophil% 0.2 % (0-1); Eosinophil# 0.09 X10^3/uL; Eosinophils% 1.5 % (0-5); Hematocrit 38.6 % (37-47); Hemoglobin 12.8 g/dL (12.0-15.0); Lymphocyte % 23.2 % (19-41); Mean Corp Hgb Conc 33.2 g/dL (32-36); Mean Corpuscular Hgb 29.8 pg (27.0-32.0); Mean Corpuscular Volume 89.8 fL (81-99); Mean Platelet Vol. 9.9 fl (6.2-12.0); Monocyte# 0.37 X10^3/uL; Monocyte% 6.1 % (0-10); NRBC Flagged by Analyzer 0 % (0-5); Neutrophil # 4.14 X10^3/uL (2.7-7.7); Neutrophil % 68.7 % (47-70); Platelet Count 210 K/mm3 (150-450); RBC Distribution Width CV 12.3 % (11.6-14.6); RBC Distribution Width SD 39.5 fl (35.1-43.9)
[2023-12-24 15:27] LABS: Hemoglobin A1c 5.1 % (3.8-5.6)
[2023-12-24 16:13] LABS: HIV - WCH Non-Reactive (Nonreactive); Hepatitis B Surface Antigen Non-Reactive (Nonreactive); Hepatitis C Antibody Non-Reactive (Nonreactive); Rubella IgG Reactive (Nonreactive); Syphilis Antibodies Non-reactive
== END | disposition home or self-care (01) ==
LOC: PAVLAB 14:31
PROVIDERS: PCP Family Medicine; Referring Provider Advanced Practice Midwife; Visit Provider Advanced Practice Midwife
DX: O99.210 Obesity complicating pregnancy, unspecified trimester (principal); Z3A.00 Weeks of gestation of pregnancy not specified
CPT/HCPCS: 36415; 83036; 85025; 86703; 86762; 86780; 86803; 86850; 86900; 86901; 87340

== ENCOUNTER → 2024-04-28 | Outpatient (CLI) | payer OTHER, SELFPAY ==
[2024-04-28 11:08] LABS: Absolute Lymphocyte Count 0.95 X10^3/uL (0.83-4.51); Absolute Neutrophil Count 4.4 X10^3/uL (2.0-7.7); Basophil# 0.01 X10^3/uL; Basophil% 0.2 % (0-1); Eosinophil# 0.04 X10^3/uL; Eosinophils% 0.7 % (0-5); Hematocrit 32.3 % (37-47); Hemoglobin 10.6 g/dL (12.0-15.0); Lymphocyte # 0.95 X10^3/ul (0.83-4.51); Lymphocyte % 16.7 % (19-41); Mean Corp Hgb Conc 32.8 g/dL (32-36); Mean Corpuscular Hgb 30.5 pg (27.0-32.0); Mean Corpuscular Volume 92.8 fL (81-99); Mean Platelet Vol. 9.8 fl (6.2-12.0); Monocyte# 0.28 X10^3/uL; Monocyte% 4.9 % (0-10); NRBC Flagged by Analyzer 0 % (0-5); Neutrophil # 4.39 X10^3/uL (2.7-7.7); Neutrophil % 77.1 % (47-70); Platelet Count 192 K/mm3 (150-450); RBC Distribution Width CV 12.7 % (11.6-14.6); RBC Distribution Width SD 42.8 fl (35.1-43.9); Red Blood Count 3.48 M/mm3 (4.2-5.4); White Blood Count 5.7 K/mm3 (4.4-11.0)
[2024-04-28 11:21] LABS: Glucose Challenge Gest 1H 50g 144 mg/dL (70-140)
[2024-04-28 11:54] LABS: HIV - WCH Non-Reactive (Nonreactive); Syphilis Antibodies Non-reactive
== END | disposition home or self-care (01) ==
LOC: PAVLAB 10:40
PROVIDERS: PCP Family Medicine; Referring Provider Obstetrics & Gynecology; Visit Provider Obstetrics & Gynecology
DX: O09.90 Supervision of high risk pregnancy, unspecified, unspecified trimester (principal); Z13.1 Encounter for screening for diabetes mellitus; Z3A.00 Weeks of gestation of pregnancy not specified
CPT/HCPCS: 36415; 82950; 85025; 86703; 86780; 86850; 86900; 86901

== ENCOUNTER → 2024-05-08 | Outpatient (CLI) | payer OTHER, SELFPAY ==
[2024-05-08 07:23] LABS: Bedside Glucose 88 mg/dL (74-106)
[2024-05-08 08:47] LABS: Glucose GTT-Gestational 1 Hr 181 mg/dL (<190)
[2024-05-08 08:50] LABS: Glucose GTT-Gestation. Fasting 83 mg/dL (<105)
[2024-05-08 09:48] LABS: Glucose GTT-Gestational 2 Hr 150 mg/dL (<165)
[2024-05-08 11:07] LABS: Glucose GTT-Gestational 3 Hr 109 L (<145)
== END | disposition home or self-care (01) ==
LOC: LAB 06:59
PROVIDERS: PCP Family Medicine; Referring Provider Nurse Practitioner Women's Health; Visit Provider Nurse Practitioner Women's Health
DX: O30.039 Twin pregnancy, monochorionic/diamniotic, unspecified trimester (principal); Z3A.00 Weeks of gestation of pregnancy not specified
CPT/HCPCS: 36415; 82951; 82952; 82962

== ENCOUNTER 2024-06-06 00:42 | Observation (INO) | payer OTHER, SELFPAY ==
[2024-06-05 22:39] VITALS: BP 139/88; PULSE 77; PULSE 83; RESP 16; TEMP 36.1; O2SAT 97
[2024-06-05 22:45] VITALS: BMI 36.5
[2024-06-05] MEDS: Lactated Ringers 1,000 ML 999 ML IV (22:45)
[2024-06-05] MEDS: Betamethasone/Betamethasone 30 MG/5 ML Vial 12 MG IM (22:50)
[2024-06-05 23:01] LABS: Absolute Lymphocyte Count 1.17 X10^3/uL (0.83-4.51); Absolute Neutrophil Count 4.9 X10^3/uL (2.0-7.7); Basophil# 0.01 X10^3/uL; Basophil% 0.2 % (0-1); Eosinophil# 0.05 X10^3/uL; Eosinophils% 0.8 % (0-5); Hematocrit 32.3 % (37-47); Hemoglobin 10.4 g/dL (12.0-15.0); Lymphocyte # 1.17 X10^3/ul (0.83-4.51); Lymphocyte % 17.8 % (19-41); Mean Corp Hgb Conc 32.2 g/dL (32-36); Mean Corpuscular Hgb 29.5 pg (27.0-32.0); Mean Corpuscular Volume 91.8 fL (81-99); Mean Platelet Vol. 10.9 fl (6.2-12.0); Monocyte# 0.42 X10^3/uL; Monocyte% 6.4 % (0-10); NRBC Flagged by Analyzer 0 % (0-5); Neutrophil # 4.91 X10^3/uL (2.7-7.7); Neutrophil % 74.5 % (47-70); Platelet Count 170 K/mm3 (150-450); RBC Distribution Width CV 14.1 % (11.6-14.6); Red Blood Count 3.52 M/mm3 (4.2-5.4); White Blood Count 6.6 K/mm3 (4.4-11.0)
--- NOTE | 2024-06-05 23:02 | NURSING ---
breech boy twins. Ben BOLIVAR on unit.
[2024-06-05 23:13] LABS: Fetal Fibronectin Negative; Record Kit Lot#, fFN A4033
[2024-06-05 23:17] LABS: ALB/GLOB Ratio 0.7 RATIO (0.9-2.4); AST(SGOT) 18 U/L (15-37); Alanine Aminotransfer ALT/SGPT 18 U/L (13-56); Albumin, Serum 2.7 g/dL (3.2-5.0); Alkaline Phosphatase 102 U/L (45-117); Anion Gap 8 (5-15); BUN 8 mg/dL (7-18); BUN/Creat Ratio 12.9 RATIO (10-20); Calcium,Total 8.8 mg/dL (8.5-10.1); Chloride 111 mmol/L (98-107); Creatinine, Serum 0.62 mg/dL (0.55-1.02); EST Glomerular Filtration Rate 118 mL/min (>60); Est Glom Filt Rate - Afr Amer 143 mL/min (>60); Estimated Creatinine Clearance 168.51 ml/min; Globulin 3.8 g/dL (2.2-4.2); Glucose 109 mg/dL (74-106); Potassium 3.6 mmol/L (3.5-5.1); Protein, Total 6.5 g/dL (6.4-8.2); Sodium Level 138 mmol/L (136-145)
[2024-06-06 01:00] VITALS: PULSE 74; O2SAT 99
[2024-06-06 01:43] LABS: Syphilis Antibodies Non-reactive
--- NOTE | 2024-06-06 02:12 | NURSING ---
pt left AMA at 0140. see connect L&D charting for extensive notes regarding plan of care.
--- NOTE | 2024-06-06 23:17 | OB.TRI.HP_ITS ---
HPI - General General Date of Admission: 06/06/24 HPI Narrative WILLIS GAUTAM, is a 33 y/o @ 33 weeks with mono/di twin who presents to L&D with contractions. Her cervix was examined and found to be 1 cm dilated upon admission. No loss of fluid ,vaginal bleeding or dec fm. Maternal Data Information AMANDA Calculator Estimated Delivery Date Method Current WG Current Estimate 07/21/24 LMP (Certain) 35w 4d Other Estimates 07/17/24 Ultrasound #1 36w 1d # 2 PFSH PFSH Medical History Wears contact lenses Easy bruising Migraine headache Heartburn Non-smoker History of echocardiogram History of irregular heartbeat Nausea Fatigue LLQ abdominal pain Gestational HTN Abnormal ultrasound of breast Left breast abscess Heart murmur Urinary tract infection Mastitis Home Medications ?Medication ?Instructions ?Recorded ?Last Taken ?Type magnesium 200 mg tablet 200 mg PO DAILY headaches 03/16/21 06/04/24 22:48 History 400 mg vit no.95-ferrous 1 tab PO DAILY 11/30/23 06/04/24 22:48 History fumarate 28 mg-folic acid 800 mcg tablet ondansetron 4 mg disintegrating 4 mg PO Q8H PRN nausea and 12/10/23 Unknown Rx tablet vomiting #30 tabs famotidine 20 mg tablet (Pepcid) 20 mg PO BID #60 tabs 04/28/24 06/05/24 18:00 Rx escitalopram oxalate 10 mg tablet 10 mg PO DAILY #90 tabs 05/28/24 Unknown Rx (Lexapro) ferrous sulfate 325 mg (65 mg 325 mg PO QODAY see prov 06/05/24 06/05/24 10:00 History iron) tablet (iron) Allergy/AdvReac Type Severity Reaction Status Date / Time Latex, Natural Rubber Allergy Other Verified 06/09/24 14:55 Penicillins Allergy Hives Verified 06/09/24 14:55 Family History Mother Breast cancer Diabetes Father Ulcerative colitis Grandmother Colon cancer Maternal Grandfather Cancer Lymphoma- Maternal Aunt Cancer Great Aunt- Ovarian- Maternal Surgical History History of surgery Hx of wisdom tooth extraction Social History adopted: No household members: spouse current occupational status: employed current occupation: [employer] current occupational exposures/hazards: No pets and animals: Yes (Morgan doing litterbox) pets and animals: cat(s) history of recent travel: No sexually active: Yes Smoking Status: Never smoker alcohol intake: never substance use type: does not use caffeine: Yes Type: tea Number of servings: 1 what type of physical activity do you participate in: none seatbelt use: always do you feel safe at home: Yes 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 Date Name GA/Weeks Outcome Route Bth Weight Infant Gen Labor Lgth Anesthesia Del Locatn Provider FOB 09/11/19 Belinda 2018 38 live - full term 8.6 Female 36 e pidural [facility] Jalloh Zac 04/19/21 Vincrobert 2020 40 live - full term 7.8 Male 4 epidural [facility] Visit Details Expected Delivery Route/Plan Labor Preferences- CB/BF classes: [] labor support person: [] labor intervention preferences: [] pain management options preferred: [] cut cord/dad catch: [] : [] PP control planned: [] discussed possible routes of delivery and associated risks: [] special requests: [] Plans Covid status: [] Flu vaccine: [] Tdap vaccine: [] Rhogam: [] LARC form signed: [] Problem list reviewed and updated with the most current plan of care details and appropriate orders placed. Relevant counseling for the gestational age provided. Continue routine care and follow up unless otherwise noted in visit notes/problem list details OB Flowsheet Initial Weight: Not Recorded Date -?-?-?-?-?-?-?-?-?-?-?-?- EGA Weight BP Urine Prot -?-?-?-?-?-?-?-?-?-?-?-?- Glucose FHR FuHt Pres Dilation -?-?-?-?-?-?-?-?-?-?-?-?- Effaced St Visit Note 11/30/23 -?-?-?-?-?-?-?-?-?-?-?-?- 6w 4d 213 lb 8 oz 132/85 -?-?-?-?-?-?-?-?-?-?-?-?- A 128 -?-?-?-?-?-?-?-?-?-?-?-?- B 144 A -?-?-?-?-?-?-?-?-?-?-?-?- B -?-?-?-?-?-?-?-?-?-?-?-?- A -?-?-?-?-?-?-?-?-?-?-?-?- B A KW- Formal US on tues-Twins. MFM consult at 13-15weeks. Hx of Pre e in 1st preg. Discussed baby asa. Doc only pt. to come back in 2 weeks. -?-?-?-?-?-?-?-?-?-?-?-?- B Requesting NIPT next visit 12/10/23 -?-?-?-?-?-?-?-?-?-?-?-?- 8w 0d 215 lb 4 oz 130/84 Nega tive -?-?-?-?-?-?-?-?-?-?-?-?- Negative A 163 -?-?-?-?-?-?-?-?-?-?-?-?- B 163 A -?-?-?-?-?-?-?-?-?-?-?-?- B -?-?-?-?-?-?-?-?-?-?-?-?- A -?-?-?-?-?-?-?-?-?-?-?-?- B Lurdes OCHOA- us appears t o be monozygotic today. nIPT ordered. will consult [facility] -?-?-?-?-?-?-?-?-?-?-?-?- B 12/24/23 -?-?-?-?-?-?-?-?-?-?-?-?- 10w 0d 214 lb 8 oz 129/85 -?-?-?-?-?-?-?-?-?-?-?-?- A 180 -?-?-?-?-?-?-?-?-?-?-?-?- B 168 A -?-?-?-?-?-?-?-?-?-?-?-?- B -?-?-?-?-?-?-?-?-?-?-?-?- A -?-?-?-?-?-?-?-?-?-?-?-?- B A LC- no vb/tanvi estrada. mfm anatomy order placed. -?-?-?-?-?-?-?-?-?-?-?-?- B 01/09/24 -?-?-?-?-?-?-?-?-?-?-?-?- 12w 2d 215 lb 6 oz 114/76 Nega tive -?-?-?-?-?-?-?-?-?-?-?-?- Negative A 124 -?-?-?-?-?-?-?-?-?-?-?-?- B 150 A -?-?-?-?-?-?-?-?-?-?-?-?- B -?-?-?-?-?-?-?-?-?-?-?-?- A -?-?-?-?-?-?-?-?-?-?-?-?- B A JV- starting to have some depression. not yet ready to go back on meds. low risk nipt boy! mono mono. to see mfm on 02/20 -?-?-?-?-?-?-?-?-?-?-?-?- B 01/21/24 -?-?-?-?-?-?-?-?-?-?-?-?- 14w 0d 217 lb 6 oz 109/72 -?-?-?-?-?-?-?-?-?-?-?-?- A 144 -?-?-?-?-?-?-?-?-?-?-?-?- B 168 A -?-?-?-?-?-?-?-?-?-?-?-?- B -?-?-?-?-?-?-?-?-?-?-?-?- A -?-?-?-?-?-?-?-?-?-?-?-?- B A LC- no vb/crampi ng. no concerns today. -?-?-?-?-?-?-?-?-?-?-?-?- B 02/18/24 -?-?-?-?-?-?-?-?-?-?-?-?- 18w 0d 222 lb 2 oz 121/78 Nega tive -?-?-?-?-?-?-?-?-?-?-?-?- Negative A 145 -?-?-?-?-?-?-?-?-?-?-?-?- B 155 A -?-?-?-?-?-?-?-?-?-?-?-?- B -?-?-?-?-?-?-?-?-?-?--?-?- A -?-?-?-?-?-?-?-?-?-?-?-?- B A SM- no vb lof ascencion ken, discussed with patient will have radiologist review original images to see if there is a dividing membrane, unclear if there is one today whether this is mono mono or mono di twins. has mfm appointment next week, has not been seen by them yet. -?-?-?-?-?-?-?-?-?-?-?-?- B 03/20/24 -?-?-?-?-?-?-?-?-?-?-?-?- 22w 3d 226 lb 6 oz 138/84 Nega tive -?-?-?-?-?-?-?-?-?-?-?-?- Negative A 150 -?-?-?-?-?-?-?-?-?-?-?-?- B 165 A Breech -?-?-?-?-?-?-?-?-?-?-?-?- B Breech -?-?-?-?-?-?-?-?-?-?-?-?- A -?-?-?-?-?-?-?-?-?-?-?-?- B A JV- growth scan yesterday was normal. pt was not aware of the needed echo. will send message to get scheduled. -?-?-?-?-?-?-?-?-?-?-?-?- B 04/18/24 -?-?-?-?-?-?-?-?-?-?-?-?- 26w 4d 231 lb 8 oz 119/72 Nega tive -?-?-?-?-?-?-?-?-?-?-?-?- Negative A 145 -?-?-?-?-?-?-?-?-?-?-?-?- B 165 A Cephalic -?-?-?-?-?-?-?-?-?-?-?-?- B Breech -?-?-?-?-?-?-?-?-?-?-?-?- A -?-?-?-?-?-?-?-?-?-?-?-?- B A JV- growth scan reviewed. no lof, vaginal bleeding, or dec fm. now starting to feel ernestine patel but not painful. RTO at 28 weeks for rhogam and gct. -?-?-?-?-?-?-?-?-?-?-?-?- B 04/28/24 -?-?-?-?-?-?-?-?-?-?-?-?- 28w 0d 233 lb 121/76 Negative -?-?-?-?-?-?-?-?-?-?-?-?- Negative A 128 -?-?-?-?-?-?-?-?-?-?-?-?- B 132 A Cephalic -?-?-?-?-?-?-?-?-?-?-?-?- B Cephalic -?-?-?-?-?-?-?-?-?-?-?-?- A -?-?-?-?-?-?-?-?-?-?-?-?- B A JV- pt had growt h follow up today. (pending) doing GCT then returning for rhogam. -?-?-?-?-?-?-?-?-?-?-?-?- B 05/12/24 -?-?-?-?-?-?-?-?-?-?-?-?- 30w 0d 235 lb 126/76 Negative -?-?-?-?-?-?-?-?-?-?-?-?- Negative A 124 -?-?-?-?-?-?-?-?-?-?-?-?- B 133 A Cephalic -?-?-?-?-?-?-?-?-?-?-?-?- B Breech -?-?-?-?-?-?-?-?-?-?-?-?- A -?-?-?-?-?-?-?-?-?-?-?-?- B A KW-had mfm appt today. questions regarding where to go for delivery should the babies come early. to discussed mode of delivery next week with physician. LARC today. has BPPs with mfm starting at 32 weeks. -?-?-?-?-?-?-?-?-?-?-?-?- B 05/28/24 -?-?-?-?-?-?-?-?-?-?-?-?- 32w 2d 235 lb 6 oz 123/81 Nega tive -?-?-?-?-?-?-?-?-?-?-?-?- Negative A 130 -?-?-?-?-?-?-?-?-?-?-?-?- B 126 A Breech -?-?-?-?-?-?-?-?-?-?-?-?- B Breech -?-?-?-?-?-?-?-?-?-?-?-?- A -?-?-?-?-?-?-?-?-?-?-?-?- B A JV-no lof, vagin al bleeding, or dec fm. we discussed will need if remains breech. continue weekly bpp's with mfm. -?-?-?-?-?-?-?-?-?-?-?-?- B 06/09/24 -?-?-?-?-?-?-?-?-?-?-?-?- 34w 0d 243 lb 124/80 Negative -?-?-?-?-?-?-?-?-?-?-?-?- Negative A 130 -?-?-?-?-?-?-?-?-?-?-?-?- B 139 A Breech -?-?-?-?-?-?-?-?-?-?-?-?- B Cephalic 2 -?-?-?-?-?-?-?-?-?-?-?-?- 50 A -3 -?-?-?-?-?-?-?-?-?--?-?-?- B A JV-no lof, vagin al bleeding, or dec fm. was released from [place] [facility] and found to be unchanged. we discussed primary if first baby coming down is vertex only. -?-?-?-?-?-?-?-?-?-?-?-?- B ROS Constitutional Constitutional: Reports systems reviewed and no addt'l complaints, except as documented Gastrointestinal Gastrointestinal: Denies bloating, constipation, cramping, diarrhea, nausea or vomiting Genitourinary Genitourinary: Reports other Details: Denies vaginal odor, vaginal bleeding, or vaginal discharge ; Denies difficulty urinating or flank pain Physical Exam HEENT normocephalic Resp normal respiratory effort and normal air movement no CVA tenderness Extremity normal to inspection General Extremity: edema bilateral (trace ) NST FHR Rate Baby A Baseline: 140 Variability:: Moderate Accelerations:: 15 x 15 Decelerations:: None NST Reactive:: Yes FHR Category:: Category I FHR Rate Baby B Baseline: 140 Variability:: Moderate Accelerations:: 15 x 15 Decelerations:: None FHR Category:: Category I Uterine Activity:: irregular contractions Assessment & Plan (1) Threatened labor: PLAN: cervical exam on repeat was 1 cm more dilated. bedside us showed vtx/vtx position. steroids offered and she declined observation recommended but patient preferred to go to [facility] to decrease risk that she and the babies would be . arrangement was made to transport to [place] via EMS and patient declined. She left against medical advice to drive to [place] [facility] to avoid fee of transportation. (2) Anemia affecting : COMMENT: Slow Fe. (3) Monochorionic diamniotic twin gestation: COMMENT: Primary section 07/01 @ 12 with JV, confirmed on anatomy scan by MFM. - to follow up at 16 weeks and every 2 weeks- q 1 month growths and mca dopplers starting at 20 weeks, 22 week echo recommended. weekly bpp at 32 weeks with MFM, delivery 37 weeks. (4) Rh negative status during : COMMENT: RHogam at 28 weeks and PRN. 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 Charges/Coding Multi Select Codes Visit Charges Office Visit/Consults: 51023 OV L3 Est 20min Urinary/Genital Urinary/Genital CPT Codes: 01505-82 non-stress test Interp
== END 2024-06-06 01:40 | disposition left against medical advice (07) ==
LOC: WPOUT 00:46 → WP 01:45
PROVIDERS: Advanced Practice Midwife; Admitting Provider Obstetrics & Gynecology; PCP Family Medicine; Visit Provider Obstetrics & Gynecology
DX: O60.03 Preterm labor without delivery, third trimester (principal); Z53.29 Procedure and treatment not carried out because of patient's decision for other reasons; O30.033 Twin pregnancy, monochorionic/diamniotic, third trimester; Z3A.33 33 weeks gestation of pregnancy; O99.013 Anemia complicating pregnancy, third trimester; O99.820 Streptococcus B carrier state complicating pregnancy; O26.893 Other specified pregnancy related conditions, third trimester; O99.353 Diseases of the nervous system complicating pregnancy, third trimester; G62.9 Polyneuropathy, unspecified
CPT/HCPCS: 96360; 36415; 59025; 59050; 76815; 80053; 82731; 85025; 86780; 86850; 86900; 86901; 96372; 99221; J7120; G0378; J0702

== ENCOUNTER 2024-06-23 10:07 | Outpatient (CLI) | payer OTHER, SELFPAY ==
[2024-06-23 10:34] VITALS: BP 129/83; PULSE 87; RESP 18; TEMP 37
[2024-06-23 10:35] VITALS: PULSE 82; O2SAT 97
[2024-06-23 10:40] VITALS: BMI 36.2
--- NOTE | 2024-06-23 11:06 | OB.TRI.HP_ITS ---
HPI - General HPI Narrative WILLIS GAUTAM, is a 33 F who presents to L&D for nst due to a 6/8 BPP on twin A. The points were off for movement. Maternal Data Information AMANDA Calculator Estimated Delivery Date Method Current WG Current Estimate 07/21/24 LMP (Certain) 36w 0d Other Estimates 07/17/24 Ultrasound #1 36w 4d # 2 PFSH PFSH Medical History Wears contact lenses Easy bruising Migraine headache Heartburn Non-smoker History of echocardiogram History of irregular heartbeat Nausea Fatigue LLQ abdominal pain Gestational HTN Abnormal ultrasound of breast Left breast abscess Heart murmur Urinary tract infection Mastitis Home Medications ?Medication ?Instructions ?Recorded ?Last Taken ?Type magnesium 200 mg tablet 200 mg PO DAILY headaches 03/16/21 06/22/24 20:00 History 200 mg vit no.95-ferrous 1 tab PO DAILY 11/30/23 06/22/24 20:00 History fumarate 28 mg-folic acid 800 mcg 1 TAB tablet ondansetron 4 mg disintegrating 4 mg PO Q8H PRN nausea and 12/10/23 Unknown Rx tablet vomiting #30 tabs famotidine 20 mg tablet (Pepcid) 20 mg PO BID #60 tabs 04/28/24 06/23/24 08:30 Rx 20 mg ferrous sulfate 325 mg (65 mg 325 mg PO QODAY see prov 06/05/24 06/22/24 20:00 History iron) tablet (iron) 325 mg Allergy/AdvReac Type Severity Reaction Status Date / Time Latex, Natural Rubber Allergy Other Verified 06/23/24 10:38 Penicillins Allergy Hives Verified 06/23/24 10:38 Family History Mother Breast cancer Diabetes Father Ulcerative colitis Grandmother Colon cancer Maternal Grandfather Cancer Lymphoma- Maternal Aunt Cancer Great Aunt- Ovarian- Maternal Surgical History History of surgery Hx of wisdom tooth extraction Social History adopted: No household members: spouse current occupational status: employed current occupation: [employer] current occupational exposures/hazards: No pets and animals: Yes (Morgan doing litterbox) pets and animals: cat(s) history of recent travel: No sexually active: Yes Smoking Status: Never smoker alcohol intake: never substance use type: does not use caffeine: Yes Type: tea Number of servings: 1 what type of physical activity do you participate in: none seatbelt use: always do you feel safe at home: Yes 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 Date Name GA/Weeks Outcome Route Bth Weight Gen Labor Lgth Anesthesia Del Locatn Provider FOB 09/11/19 Belinda 2018 38 live - full term 8.6 Female 36 e pidural [facility] Yeimi Frank 04/19/21 Vincent 2020 40 live - full term 7.[address] [facility] Visit Details Expected Delivery Route/Plan Labor Preferences- CB/BF classes: [] labor support person: [] labor intervention preferences: [] pain management options preferred: [] cut cord/dad catch: [] : [] PP control planned: [] discussed possible routes of delivery and associated risks: [] special requests: [] Plans Covid status: [] Flu vaccine: [] Tdap vaccine: [] Rhogam: [] LARC form signed: [] Problem list reviewed and updated with the most current plan of care details and appropriate orders placed. Relevant counseling for the gestational age provided. Continue routine care and follow up unless otherwise noted in visit notes/problem list details OB Flowsheet Initial Weight: Not Recorded Date -?-?-?-?-?-?-?-?-?-?-?-?- EGA Weight BP Urine Prot -?-?-?-?-?-?-?-?-?-?-?-?- Glucose FHR FuHt Pres Dilation -?-?-?-?-?-?-?-?-?-?-?-?- Effaced St Visit Note 11/30/23 -?-?-?-?-?-?-?-?-?-?-?-?- 6w 4d 213 lb 8 oz 132/85 -?-?-?-?-?-?-?-?-?-?-?-?- A 128 -?-?-?-?-?-?-?-?-?-?-?-?- B 144 A -?-?-?-?-?-?-?-?-?-?-?-?- B -?-?-?-?-?-?-?-?-?-?-?-?- A -?-?-?-?-?-?-?-?-?-?-?-?- B A KW- Formal US on tues-Twins. MFM consult at 13-15weeks. Hx of Pre e in 1st preg. Discussed baby asa. Doc only pt. to come back in 2 weeks. -?-?-?-?-?-?-?-?-?-?-?-?- B Requesting NIPT next visit 12/10/23 -?-?-?-?-?-?-?-?-?-?-?-?- 8w 0d 215 lb 4 oz 130/84 Nega tive -?-?-?-?-?-?-?-?-?-?-?-?- Negative A 163 -?-?-?-?-?-?-?-?-?-?-?-?- B 163 A -?-?-?-?-?-?-?-?-?-?-?-?- B -?-?-?-?-?-?-?-?-?-?-?-?- A -?-?-?-?-?-?-?-?-?-?-?-?- B A JV- us appears t o be monozygotic today. nIPT ordered. will consult [facility] -?-?-?-?-?-?-?-?-?-?-?-?- B 12/24/23 -?-?-?-?-?-?-?-?-?-?-?-?- 10w 0d 214 lb 8 oz 129/85 -?-?-?-?-?-?-?-?-?-?-?-?- A 180 -?-?-?-?-?-?-?-?-?-?-?-?- B 168 A -?-?-?-?-?-?-?-?-?-?-?-?- B -?-?-?-?-?-?-?-?-?-?-?-?- A -?-?-?-?-?-?-?-?-?-?-?-?- B A LC- no vb/tanvi ng. mfm anatomy order placed. -?-?-?-?-?-?-?-?-?-?-?-?- B 01/09/24 -?-?-?-?-?-?-?-?-?-?-?-?- 12w 2d 215 lb 6 oz 114/76 Nega tive -?-?-?-?-?-?-?-?-?-?-?-?- Negative A 124 -?-?-?-?-?-?-?-?-?-?-?-?- B 150 A -?-?-?-?-?-?-?-?-?-?-?-?- B -?-?-?-?-?-?-?-?-?-?-?-?- A -?-?-?-?-?-?-?-?-?-?-?-?- B A JV- starting to have some depression. not yet ready to go back on meds. low risk nipt boy! mono mono. to see mfm on 02/20 -?-?-?-?-?-?-?-?-?-?-?-?- B 01/21/24 -?-?-?-?-?-?-?-?-?-?-?-?- 14w 0d 217 lb 6 oz 109/72 -?-?-?-?-?-?-?-?-?-?-?-?- A 144 -?-?-?-?-?-?-?-?-?-?-?-?- B 168 A -?-?-?-?-?-?-?-?-?-?-?-?- B -?-?-?-?-?-?-?-?-?-?-?-?- A -?-?-?-?-?-?-?-?-?-?-?-?- B A LC- no vb/tanvi ng. no concerns today. -?-?-?-?-?-?-?-?-?-?-?-?- B 02/18/24 -?-?-?-?-?-?-?-?-?-?-?-?- 18w 0d 222 lb 2 oz 121/78 Nega tive -?-?-?-?-?-?-?-?-?-?-?-?- Negative A 145 -?-?-?-?-?-?-?-?-?-?-?-?- B 155 A -?-?-?-?-?-?-?-?-?-?-?-?- B -?-?-?-?-?-?-?-?-?-?-?-?- A -?-?-?-?-?-?-?-?-?-?-?-?- B A SM- no vb samuel ken, discussed with patient will have radiologist review original images to see if there is a dividing membrane, unclear if there is one today whether this is mono mono or mono di twins. has mfm appointment next week, has not been seen by them yet. -?-?-?-?-?-?-?-?-?-?-?-?- B 03/20/24 -?-?-?-?-?-?-?-?-?-?-?-?- 22w 3d 226 lb 6 oz 138/84 Nega tive -?-?-?-?-?-?-?-?-?-?-?-?- Negative A 150 -?-?-?-?-?-?-?-?-?-?-?-?- B 165 A Breech -?-?-?-?-?-?-?-?-?-?-?-?- B Breech -?-?-?-?-?-?-?--?-?-?-?-?- A -?-?-?-?-?-?-?-?-?-?-?-?- B A JV- growth scan yesterday was normal. pt was not aware of the needed echo. will send message to get scheduled. -?-?-?-?-?-?-?-?-?-?-?-?- B 04/18/24 -?-?-?-?-?-?-?-?-?-?-?-?- 26w 4d 231 lb 8 oz 119/72 Nega tive -?-?-?-?-?-?-?-?-?-?-?-?- Negative A 145 -?-?-?-?-?-?-?-?-?-?-?-?- B 165 A Cephalic -?-?-?-?-?-?-?-?-?-?-?-?- B Breech -?-?-?-?-?-?-?-?-?-?-?-?- A -?-?-?-?-?-?-?-?-?-?-?-?- B A JV- growth scan reviewed. no lof, vaginal bleeding, or dec fm. now starting to feel ernestine patel but not painful. RTO at 28 weeks for rhogam and gct. -?-?-?-?-?-?-?-?-?-?-?-?- B 04/28/24 -?-?-?-?-?-?-?-?-?-?-?-?- 28w 0d 233 lb 121/76 Negative -?-?-?-?-?-?-?-?-?-?-?-?- Negative A 128 -?-?-?-?-?-?-?-?-?-?-?-?- B 132 A Cephalic -?-?-?-?-?-?-?-?-?-?-?-?- B Cephalic -?-?-?-?-?-?-?-?-?-?-?-?- A -?-?-?-?-?-?-?-?-?-?-?-?- B A JV- pt had growt h follow up today. (pending) doing GCT then returning for rhogam. -?-?-?-?-?-?-?-?-?-?-?-?- B 05/12/24 -?-?-?-?-?-?-?-?-?-?-?-?- 30w 0d 235 lb 126/76 Negative -?-?-?-?-?-?-?-?-?-?-?-?- Negative A 124 -?-?-?-?-?-?-?-?-?-?-?-?- B 133 A Cephalic -?-?-?-?-?-?-?-?-?-?-?-?- B Breech -?-?-?-?-?-?-?-?-?-?-?-?- A -?-?-?-?-?-?-?-?-?-?-?--?- B A KW-had mfm appt today. questions regarding where to go for delivery should the babies come early. to discussed mode of delivery next week with physician. YENNIFER today. has BPPs with mfm starting at 32 weeks. -?-?-?-?-?-?-?-?-?-?-?-?- B 05/28/24 -?-?-?-?-?-?-?-?-?-?-?-?- 32w 2d 235 lb 6 oz 123/81 Nega tive -?-?-?-?-?-?-?-?-?-?-?-?- Negative A 130 -?-?-?-?-?-?-?-?-?-?-?-?- B 126 A Breech -?-?-?-?-?-?-?-?-?-?-?-?- B Breech -?-?-?-?-?-?-?-?-?-?-?-?- A -?-?-?-?--?-?-?-?-?-?-?-?- B A JV-no lof, vagin al bleeding, or dec fm. we discussed will need if remains breech. continue weekly bpp's with mfm. -?-?-?-?-?-?-?-?-?-?-?-?- B 06/09/24 -?-?-?-?-?-?-?-?-?-?-?-?- 34w 0d 243 lb 124/80 Negative -?-?-?-?-?-?-?-?-?-?-?-?- Negative A 130 -?-?-?-?-?-?-?-?-?-?-?-?- B 139 A Breech -?-?-?-?-?-?-?-?-?-?-?-?- B Cephalic 2 -?-?-?-?-?-?-?-?-?-?-?-?- 50 A -3 -?-?-?-?-?-?-?-?-?-?-?-?- B A JV-no lof, vagin al bleeding, or dec fm. was released [facility] and found to be unchanged. we discussed primary if first baby coming down is vertex only. -?-?-?-?-?-?-?-?-?-?-?-?- B ROS Constitutional Constitutional: Reports systems reviewed and no addt'l complaints, except as documented Gastrointestinal Gastrointestinal: Denies bloating, constipation, cramping, diarrhea, nausea or vomiting Genitourinary Genitourinary: Reports other Details: Denies vaginal odor, vaginal bleeding, or vaginal discharge ; Denies difficulty urinating or flank pain NST FHR Rate Baby A Baseline: 140 Variability:: Moderate Accelerations:: 15 x 15 Decelerations:: None NST Reactive:: Yes FHR Category:: Category I FHR Rate Baby B Baseline: 140 Variability:: Moderate Accelerations:: 15 x 15 Decelerations:: None NST Reactive:: Yes Assessment & Plan (1) Monochorionic diamniotic twin gestation: COMMENT: Primary section 07/01 @ 12 with JV, confirmed on anatomy scan by MFM. - to follow up at 16 weeks and every 2 weeks- q 1 month growths and mca dopplers starting at 20 weeks, 22 week echo recommended. weekly bpp at 32 weeks with [facility], delivery 37 weeks. (2) Abnormal test: PLAN: Plan NST reactive x 2. bpp now 8/10 for A and 10/10 for B ok to discharge to home Charges/Coding Multi Select Codes Urinary/Genital Urinary/Genital CPT Codes: 67848-24 non-stress test Interp
--- NOTE | 2024-06-23 11:06 | OB.TRI.NOTE ---
HPI - General HPI Narrative WILLIS GAUTAM, is a 33 F who presents to L&D for nst due to a 6/8 BPP on twin A. The points were off for movement. Maternal Data Information AMANDA Calculator Estimated Delivery Date Method Current WG Current Estimate 07/21/24 LMP (Certain) 36w 0d Other Estimates 07/17/24 Ultrasound #1 36w 4d # 2 PFSH PFSH Medical History Wears contact lenses Easy bruising Migraine headache Heartburn Non-smoker History of echocardiogram History of irregular heartbeat Nausea Fatigue LLQ abdominal pain Gestational HTN Abnormal ultrasound of breast Left breast abscess Heart murmur Urinary tract infection Mastitis Home Medications ?Medication ?Instructions ?Recorded ?Last Taken ?Type magnesium 200 mg tablet 200 mg PO DAILY headaches 03/16/21 06/22/24 20:00 History 200 mg vit no.95-ferrous 1 tab PO DAILY 11/30/23 06/22/24 20:00 History fumarate 28 mg-folic acid 800 mcg 1 TAB tablet ondansetron 4 mg disintegrating 4 mg PO Q8H PRN nausea and 12/10/23 Unknown Rx tablet vomiting #30 tabs famotidine 20 mg tablet (Pepcid) 20 mg PO BID #60 tabs 04/28/24 06/23/24 08:30 Rx 20 mg ferrous sulfate 325 mg (65 mg 325 mg PO QODAY see prov 06/05/24 06/22/24 20:00 History iron) tablet (iron) 325 mg Allergy/AdvReac Type Severity Reaction Status Date / Time Latex, Natural Rubber Allergy Other Verified 06/23/24 10:38 Penicillins Allergy Hives Verified 06/23/24 10:38 Family History Mother Breast cancer Diabetes Father Ulcerative colitis Grandmother Colon cancer Maternal Grandfather Cancer Lymphoma- Maternal Aunt Cancer Great Aunt- Ovarian- Maternal Surgical History History of surgery Hx of wisdom tooth extraction Social History adopted: No household members: spouse current occupational status: employed current occupation: [employer] current occupational exposures/hazards: No pets and animals: Yes (Morgan doing litterbox) pets and animals: cat(s) history of recent travel: No sexually active: Yes Smoking Status: Never smoker alcohol intake: never substance use type: does not use caffeine: Yes Type: tea Number of servings: 1 what type of physical activity do you participate in: none seatbelt use: always do you feel safe at home: Yes 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 Date Name GA/Weeks Outcome Route Bth Weight Gen Labor Lgth Anesthesia Del Locatn Provider FOB 09/11/19 Belinda 2018 38 live - full term 8.6 Female 36 epidural [facility] Jalloh Zac 04/19/21 Vincent 2020 40 live - full term 7.8 Male 4 epidural [facility] Bryan Visit Details Expected Delivery Route/Plan Labor Preferences- CB/BF classes: [] labor support person: [] labor intervention preferences: [] pain management options preferred: [] cut cord/dad catch: [] : [] PP control planned: [] discussed possible routes of delivery and associated risks: [] special requests: [] Plans Covid status: [] Flu vaccine: [] Tdap vaccine: [] Rhogam: [] LARC form signed: [] Problem list reviewed and updated with the most current plan of care details and appropriate orders placed. Relevant counseling for the gestational age provided. Continue routine care and follow up unless otherwise noted in visit notes/problem list details OB Flowsheet Initial Weight: Not Recorded Date <del>?</del> EGA Weight BP Urine Prot <del>?</del> Glucose FHR FuHt Pres Dilation <del>?</del> Effaced St Visit Note 11/30/23 <del>?</del> 6w 4d 213 lb 8 oz 132/85 <del>?</del> A 128 <del>?</del> B 144 A <del>?</del> B <del>?</del> A <del>?</del> B A KW- Formal US on tues-Twins. MFM consult at 13-15weeks. Hx of Pre e in 1st preg. Discussed baby asa. Doc only pt. to come back in 2 weeks. <del>?</del> B Requesting NIPT next visit 12/10/23 <del>?</del> 8w 0d 215 lb 4 oz 130/84 Negative <del>?</del> Negative A 163 <del>?</del> B 163 A <del>?</del> B <del>?</del> A <del>?</del> B A JV- us appears to be monozygotic today. nIPT ordered. will consult MFM <del>?</del> B 12/24/23 <del>?</del> 10w 0d 214 lb 8 oz 129/85 <del>?</del> A 180 <del>?</del> B 168 A <del>?</del> B <del>?</del> A <del>?</del> B A LC- no vb/cramping. mfm anatomy order placed. <del>?</del> B 01/09/24 <del>?</del> 12w 2d 215 lb 6 oz 114/76 Negative <del>?</del> Negative A 124 <del>?</del> B 150 A <del>?</del> B <del>?</del> A <del>?</del> B A JV- starting to have some depression. not yet ready to go back on meds. low risk nipt boy! mono mono. to see mfm on 02/20 <del>?</del> B 01/21/24 <del>?</del> 14w 0d 217 lb 6 oz 109/72 <del>?</del> A 144 <del>?</del> B 168 A <del>?</del> B <del>?</del> A <del>?</del> B A LC- no vb/cramping. no concerns today. <del>?</del> B 02/18/24 <del>?</del> 18w 0d 222 lb 2 oz 121/78 Negative <del>?</del> Negative A 145 <del>?</del> B 155 A <del>?</del> B <del>?</del> A <del>?</del> B A SM- no vb lof cramping, discussed with patient will have radiologist review original images to see if there is a dividing membrane, unclear if there is one today whether this is mono mono or mono di twins. has mfm appointment next week, has not been seen by them yet. <del>?</del> B 03/20/24 <del>?</del> 22w 3d 226 lb 6 oz 138/84 Negative <del>?</del> Negative A 150 <del>?</del> B 165 A Breech <del>?</del> B Breech <del>?</del> A <del>?</del> B A JV- growth scan yesterday was normal. pt was not aware of the needed echo. will send message to get scheduled. <del>?</del> B 04/18/24 <del>?</del> 26w 4d 231 lb 8 oz 119/72 Negative <del>?</del> Negative A 145 <del>?</del> B 165 A Cephalic <del>?</del> B Breech <del>?</del> A <del>?</del> B A JV- growth scan reviewed. no lof, vaginal bleeding, or dec fm. now starting to feel ernestine patel but not painful. RTO at 28 weeks for rhogam and gct. <del>?</del> B 04/28/24 <del>?</del> 28w 0d 233 lb 121/76 Negative <del>?</del> Negative A 128 <del>?</del> B 132 A Cephalic <del>?</del> B Cephalic <del>?</del> A <del>?</del> B A JV- pt had growth follow up today. (pending) doing GCT then returning for rhogam. <del>?</del> B 05/12/24 <del>?</del> 30w 0d 235 lb 126/76 Negative <del>?</del> Negative A 124 <del>?</del> B 133 A Cephalic <del>?</del> B Breech <del>?</del> A <del>?</del> B A KW-had mfm appt today. questions regarding where to go for delivery should the babies come early. to discussed mode of delivery next week with physician. LARC today. has BPPs with mfm starting at 32 weeks. <del>?</del> B 05/28/24 <del>?</del> 32w 2d 235 lb 6 oz 123/81 Negative <del>?</del> Negative A 130 <del>?</del> B 126 A Breech <del>?</del> B Breech <del>?</del> A <del>?</del> B A JV-no lof, vaginal bleeding, or dec fm. we discussed will need if remains breech. continue weekly bpp's with mfm. <del>?</del> B 06/09/24 <del>?</del> 34w 0d 243 lb 124/80 Negative <del>?</del> Negative A 130 <del>?</del> B 139 A Breech <del>?</del> B Cephalic 2 <del>?</del> 50 A -3 <del>?</del> B A JV-no lof, vaginal bleeding, or dec fm[facility]. we discussed primary if first baby coming down is vertex only. <del>?</del> B ROS Constitutional Constitutional: Reports systems reviewed and no addt'l complaints, except as documented Gastrointestinal Gastrointestinal: Denies bloating, constipation, cramping, diarrhea, nausea or vomiting Genitourinary Genitourinary: Reports other Details: Denies vaginal odor, vaginal bleeding, or vaginal discharge ; Denies difficulty urinating or flank pain NST FHR Rate Baby A Baseline: 140 Variability:: Moderate Accelerations:: 15 x 15 Decelerations:: None NST Reactive:: Yes FHR Category:: Category I FHR Rate Baby B Baseline: 140 Variability:: Moderate Accelerations:: 15 x 15 Decelerations:: None NST Reactive:: Yes Assessment & Plan (1) Monochorionic diamniotic twin gestation: COMMENT: Primary section 07/01 @ 12 with JV, confirmed on anatomy scan by MFM. - to follow up at 16 weeks and every 2 weeks- q 1 month growths and mca dopplers starting at 20 weeks, 22 week echo recommended. weekly bpp at 32 weeks with MFM, delivery 37 weeks. (2) Abnormal test: PLAN: Plan NST reactive x 2. bpp now 05/10 for A and 07/10 for B ok to discharge to home Charges/Coding Multi Select Codes Urinary/Genital Urinary/Genital CPT Codes: 10775-66 non-stress test Interp
== END 2024-06-23 11:08 | disposition home or self-care (01) ==
LOC: WPOUT 10:12 → WP 10:14
PROVIDERS: PCP Family Medicine; Referring Provider Advanced Practice Midwife; Visit Provider Advanced Practice Midwife
DX: O30.033 Twin pregnancy, monochorionic/diamniotic, third trimester (principal); Z3A.00 Weeks of gestation of pregnancy not specified
CPT/HCPCS: 59025; 59050; 99221; G0378

== ENCOUNTER → 2024-06-24 | Outpatient (CLI) | payer OTHER, SELFPAY | END | disposition home or self-care (01) | LOC: LABSPEC 16:33 | PROVIDERS: PCP Family Medicine; Referring Provider Obstetrics & Gynecology; Visit Provider Obstetrics & Gynecology | DX: O09.90 Supervision of high risk pregnancy, unspecified, unspecified trimester (principal); Z3A.00 Weeks of gestation of pregnancy not specified | CPT/HCPCS: 87081 ==

== ENCOUNTER 2024-07-01 05:59 | Inpatient (IN) | payer OTHER, SELFPAY ==
[2024-07-01] VITALS (36 sets, daily range): BP systolic 112–139; BP diastolic 56–89; PULSE 58–91; RESP 14–17; TEMP 36.3–37.4; O2SAT 82–100; BMI 36.1
[2024-07-01] MEDS: Lactated Ringers 1,000 ML 50 ML IV (05:30)
[2024-07-01 05:47] LABS: Absolute Lymphocyte Count 1.41 X10^3/uL (0.83-4.51); Absolute Neutrophil Count 3.5 X10^3/uL (2.0-7.7); Basophil# 0.01 X10^3/uL; Basophil% 0.2 % (0-1); Eosinophil# 0.05 X10^3/uL; Eosinophils% 0.9 % (0-5); Hematocrit 31.8 % (37-47); Hemoglobin 10.2 g/dL (12.0-15.0); Lymphocyte # 1.41 X10^3/ul (0.83-4.51); Lymphocyte % 26.6 % (19-41); Mean Corp Hgb Conc 32.1 g/dL (32-36); Mean Corpuscular Hgb 29.4 pg (27.0-32.0); Mean Corpuscular Volume 91.6 fL (81-99); Mean Platelet Vol. 10.9 fl (6.2-12.0); Monocyte# 0.35 X10^3/uL; Monocyte% 6.6 % (0-10); NRBC Flagged by Analyzer 0 % (0-5); Neutrophil # 3.46 X10^3/uL (2.7-7.7); Neutrophil % 65.3 % (47-70); Platelet Count 165 K/mm3 (150-450); RBC Distribution Width CV 14.3 % (11.6-14.6); RBC Distribution Width SD 47.8 fl (35.1-43.9); Red Blood Count 3.47 M/mm3 (4.2-5.4); White Blood Count 5.3 K/mm3 (4.4-11.0)
[2024-07-01 06:24] LABS: Syphilis Antibodies Non-reactive
[2024-07-01] MEDS: Acetaminophen 500 MG Tablet 1000 MG PO ×2 (06:24→18:10)
[2024-07-01] MEDS: Lactated Ringers 1,000 ML 150 ML IV (06:53)
--- NOTE | 2024-07-01 07:40 | HP.PCM.OB_ITS ---
HPI - General General Date of Admission: 07/01/24 HPI Narrative WILLIS GAUTAM, is a 33 y/o @ 37 weeks 1 day who presents to L&D for induction of labor due to mono/di twin gestation. The has been uncomplicated and followed by mfm with growth scans. Babies are concordant in t heir growth. Maternal Data Information AMANDA Calculator Estimated Delivery Date Method Current WG Current Estimate 07/21/24 LMP (Certain) 37w 1d Other Estimates 07/17/24 Ultrasound #1 37w 5d # 2 PFSH PFSH Medical History depression Wears contact lenses Easy bruising Migraine headache Heartburn Non-smoker History of echocardiogram History of irregular heartbeat Nausea Fatigue LLQ abdominal pain Gestational HTN Abnormal ultrasound of breast Left breast abscess Heart murmur Urinary tract infection Mastitis Home Medications ?Medication ?Instructions ?Recorded ?Last Taken ?Type magnesium 200 mg tablet 200 mg PO DAILY headaches 03/16/21 06/30/24 21:00 History vit no.95-ferrous 1 tab PO DAILY 11/30/23 06/30/24 21:00 History fumarate 28 mg-folic acid 800 mcg tablet famotidine 20 mg tablet (Pepcid) 20 mg PO BID gerd #60 tabs 04/28/24 06/30/24 21:00 Rx ferrous sulfate 325 mg (65 mg 325 mg PO QODAY see prov 06/05/24 06/30/24 09:00 History iron) tablet (iron) Allergy/AdvReac Type Severity Reaction Status Date / Time Latex, Natural Rubber Allergy Other Verified 07/01/24 05:31 Penicillins Allergy Hives Verified 07/01/24 05:31 Family History Mother Breast cancer Diabetes Father Ulcerative colitis Grandmother Colon cancer Maternal Grandfather Cancer Lymphoma- Maternal Aunt Cancer Great Aunt- Ovarian- Maternal Surgical History History of surgery Hx of wisdom tooth extraction Social History adopted: No household members: spouse current occupational status: employed current occupation: [employer] current occupational exposures/hazards: No pets and animals: Yes (Morgan doing litterbox) pets and animals: cat(s) history of recent travel: No sexually active: Yes Smoking Status: Never smoker alcohol intake: never substance use type: does not use caffeine: Yes Type: tea Number of servings: 1 what type of physical activity do you participate in: none seatbelt use: always do you feel safe at home: Yes 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 Date Name GA/Weeks Outcome Route Bth Weight Gen Labor Lgth Anesthesia Del Locatn Provider FOB 09/11/19 Belinda 2018 38 live - full term 8.6 Female 36 e pidural [facility] Yeimi Frank 04/19/21 Vincent 2020 40 live - full term 7.8 Male 4 epidural [facility] Visit Details Expected Delivery Route/Plan Labor Preferences- CB/BF classes: [] labor support person: [] labor intervention preferences: [] pain management options preferred: [] cut cord/dad catch: [] : [] PP control planned: [] discussed possible routes of delivery and associated risks: [] special requests: [] Plans Covid status: [] Flu vaccine: [] Tdap vaccine: [] Rhogam: [] LARC form signed: [] Problem list reviewed and updated with the most current plan of care details and appropriate orders placed. Relevant counseling for the gestational age provided. Continue routine care and follow up unless otherwise noted in visit notes/problem list details OB Flowsheet Initial Weight: Not Recorded Date -?-?-?-?-?-?-?-?-?-?-?-?- EGA Weight BP Urine Prot -?-?-?-?-?-?-?-?-?-?-?-?- Glucose FHR FuHt Pres Dilation -?-?-?-?-?-?-?-?-?-?-?-?- Effaced St Visit Note 11/30/23 -?-?-?-?-?-?-?-?-?-?-?-?- 6w 4d 213 lb 8 oz 132/85 -?-?-?-?-?-?-?-?-?-?-?-?- A 128 -?--?-?-?-?-?-?-?-?-?-?-?- B 144 A -?-?-?-?-?-?-?-?-?-?-?-?- B -?-?-?-?-?-?-?-?-?-?-?-?- A -?-?-?-?-?-?-?-?-?-?-?-?- B A KW- Formal US on tues-Twins. MFM consult at 13-15weeks. Hx of Pre e in 1st preg. Discussed baby asa. Doc only pt. to come back in 2 weeks. -?-?-?-?-?-?-?-?-?-?-?-?- B Requesting NIPT next visit 12/10/23 -?-?-?-?-?-?-?-?-?-?-?-?- 8w 0d 215 lb 4 oz 130/84 Nega tive -?-?-?-?-?-?-?-?-?-?-?-?- Negative A 163 -?-?-?-?-?-?-?-?-?-?-?-?- B 163 A -?-?-?-?-?-?-?-?-?-?-?-?- B -?-?-?-?-?-?-?-?-?-?-?-?- A -?-?-?-?-?-?-?-?-?-?-?-?- B A JV- us appears t o be monozygotic today. nIPT ordered. will consult [facility] -?-?-?-?-?-?-?-?-?-?-?-?- B 12/24/23 -?-?-?-?-?-?-?-?-?-?-?-?- 10w 0d 214 lb 8 oz 129/85 -?-?-?-?-?-?-?-?-?-?-?-?- A 180 -?-?-?-?-?-?-?--?-?-?-?-?- B 168 A -?-?-?-?-?-?-?-?-?-?-?-?- B -?-?-?-?-?-?-?-?-?-?-?-?- A -?-?-?-?-?-?-?-?-?-?-?-?- B A LC- no vb/tanvi ng. mfm anatomy order placed. -?-?-?-?-?-?-?-?-?-?-?-?- B 01/09/24 -?-?-?-?-?-?-?-?-?-?-?-?- 12w 2d 215 lb 6 oz 114/76 Nega tive -?-?-?-?-?-?-?-?-?-?-?-?- Negative A 124 -?-?-?-?-?-?-?-?-?-?-?-?- B 150 A -?-?-?-?-?-?-?-?-?-?-?-?- B -?-?-?-?-?-?-?-?-?-?-?-?- A -?-?-?-?-?-?-?-?-?-?-?-?- B A JV- starting to have some depression. not yet ready to go back on meds. low risk nipt boy! mono mono. to see mfm on 02/20 -?-?-?-?-?-?-?-?-?-?-?-?- B 01/21/24 -?-?-?-?-?-?-?-?-?-?--?-?- 14w 0d 217 lb 6 oz 109/72 -?-?-?-?-?-?-?-?-?-?-?-?- A 144 -?-?-?-?-?-?-?-?-?-?-?-?- B 168 A -?-?-?-?-?-?-?-?-?-?-?-?- B -?-?-?-?-?-?-?-?-?-?-?-?- A -?-?-?-?-?-?-?-?-?-?-?-?- B A LC- no vb/tanvi estrada. no concerns today. -?-?-?-?-?-?-?-?-?-?-?-?- B 02/18/24 -?-?-?--?-?-?-?-?-?-?-?-?- 18w 0d 222 lb 2 oz 121/78 Nega tive -?-?-?-?-?-?-?-?-?-?-?-?- Negative A 145 -?-?-?-?-?-?-?-?-?-?-?-?- B 155 A -?-?-?-?-?-?-?-?--?-?-?-?- B -?-?-?-?-?-?-?-?-?-?-?-?- A -?-?-?-?-?-?-?-?-?-?-?-?- B A SM- no vb samuel ken, discussed with patient will have radiologist review original images to see if there is a dividing membrane, unclear if there is one today whether this is mono mono or mono di twins. has mfm appointment next week, has not been seen by them yet. -?-?-?--?-?-?-?-?-?-?-?-?- B 03/20/24 -?-?-?-?-?-?-?-?-?-?-?-?- 22w 3d 226 lb 6 oz 138/84 Nega tive -?-?-?-?-?-?-?-?-?-?-?-?- Negative A 150 -?-?-?-?-?-?-?--?-?-?-?-?- B 165 A Breech -?-?-?-?-?-?-?-?-?-?-?-?- B Breech -?-?-?-?-?-?-?-?-?-?-?-?- A -?-?-?-?-?-?-?-?-?-?-?-?- B A JV- growth scan yesterday was normal. pt was not aware of the needed echo. will send message to get scheduled. -?-?-?-?-?-?-?-?-?-?-?-?- B 04/18/24 -?-?-?-?-?-?-?-?-?-?-?-?- 26w 4d 231 lb 8 oz 119/72 Nega tive -?-?-?-?-?-?-?-?-?-?-?-?- Negative A 145 -?-?-?-?-?-?-?-?-?-?-?-?- B 165 A Cephalic -?-?-?-?-?-?-?-?-?-?-?-?- B Breech -?-?-?-?-?-?-?-?-?-?-?-?- A -?-?-?-?-?-?-?-?-?-?-?-?- B A JV- growth scan reviewed. no lof, vaginal bleeding, or dec fm. now starting to feel ernestine patel but not painful. RTO at 28 weeks for rhogam and gct. -?-?-?-?-?-?-?-?-?-?-?-?- B 04/28/24 -?-?-?-?-?-?-?-?-?-?-?-?- 28w 0d 233 lb 121/76 Negative -?-?-?-?-?-?-?-?-?-?-?-?- Negative A 128 -?-?-?-?-?-?-?-?-?-?-?-?- B 132 A Cephalic -?-?-?-?-?-?-?-?-?-?-?-?- B Cephalic -?-?-?-?-?-?-?-?-?-?-?-?- A -?-?-?-?-?-?-?-?-?-?-?-?- B A JV- pt had growt h follow up today. (pending) doing GCT then returning for rhogam. -?-?-?-?-?-?-?-?-?-?-?-?- B 05/12/24 -?-?-?-?-?-?-?-?-?-?-?-?- 30w 0d 235 lb 126/76 Negative -?-?-?-?-?-?-?-?-?-?-?-?- Negative A 124 -?-?-?-?-?-?-?-?-?-?-?-?- B 133 A Cephalic -?-?-?-?-?-?-?-?-?-?-?-?- B Breech -?-?-?-?-?-?-?-?-?-?-?-?- A -?-?-?-?-?-?-?-?-?-?-?-?- B A KW-had mfm appt today. questions regarding where to go for delivery should the babies come early. to discussed mode of delivery next week with physician. YENNIFER today. has BPPs with mfm starting at 32 weeks. -?-?-?-?-?-?-?-?-?-?-?-?- B 05/28/24 -?-?-?-?-?-?-?-?-?-?-?-?- 32w 2d 235 lb 6 oz 123/81 Nega tive -?-?-?-?-?-?-?-?-?-?-?-?- Negative A 130 -?-?-?-?-?-?-?-?-?-?-?-?- B 126 A Breech -?-?-?-?-?-?-?-?-?-?-?-?- B Breech -?-?-?-?-?-?-?-?-?-?-?-?- A -?-?-?-?-?-?-?-?-?-?-?-?- B A JV-no lof, vagin al bleeding, or dec fm. we discussed will need if remains breech. continue weekly bpp's with mfm. -?-?-?-?-?-?-?-?-?-?-?-?- B 06/09/24 -?-?-?-?-?-?-?-?-?-?-?-?- 34w 0d 243 lb 124/80 Negative -?-?-?-?-?-?-?-?-?-?-?-?- Negative A 130 -?-?-?-?-?-?-?-?-?-?-?-?- B 139 A Breech -?-?-?-?-?-?-?-?-?-?-?-?- B Cephalic 2 -?-?-?-?-?-?-?-?-?-?-?-?- 50 A -3 -?-?-?-?-?-?-?-?-?-?-?-?- B A JV-no lof, vagin al bleeding, or dec fm. was released from [facility] and found to be unchanged. we discussed primary if first baby coming down is vertex only. -?-?-?-?-?-?-?-?-?-?-?-?- B 06/24/24 -?-?-?-?-?-?-?-?-?-?-?-?- 36w 1d 239 lb 133/87 Negative -?-?-?-?-?-?-?-?-?-?-?-?- Negative A 135 -?-?-?-?-?-?-?-?-?-?-?-?- B 145 A Cephalic -?-?-?-?-?-?-?-?-?-?-?-?- B Cephalic -?-?-?-?-?-?-?-?-?-?-?-?- A -?-?-?-?-?-?-?-?-?-?-?-?- B A SM- no vb lof go od fm no regular ctx discussed IOL next week -?-?-?-?-?-?-?-?-?-?-?-?- B ROS Constitutional Constitutional: Denies change in weight, fatigue, fever(s), headache(s), poor appetite or weakness Eyes Eyes: Denies blurry vision, change in vision, seeing flashes or spots in vision ENT HEENT: Denies dizziness, headache(s), loss taste/smell or sore throat Cardiovascular Cardiovascular: Denies chest pain, dizziness, dyspnea, irregular heart rhythm, leg edema, palpitations, rapid heart rate or vomiting Respiratory/Chest Respiratory/Chest: Denies chest tightness, cough, dyspnea or breast pain Gastrointestinal Gastrointestinal: Denies abdominal pain, anorexia, constipation, cramping, diarrhea, hemorrhoids, vomiting or weight changes Genitourinary Genitourinary: Denies dysuria, flank pain, genital lesions, genital pain, urinary frequency or urinary urgency Musculoskeletal Musculoskeletal: Denies back pain, difficulty walking, joint pain, limited range of motion, muscle cramps or numbness Integumentary Integumentary: Denies lesions or unusual bruising Neurologic Neurologic: Denies abnormal movements, abnormal speech, dizziness, numbness, seizure-like activity or syncope Psychiatric Psychiatric: Denies anxiety, behavioral changes, change in appetite, change in libido, cognitive impairment, confusion, depression, difficulty concentrating, hallucinations or suicidal thoughts Endocrine Endocrinology: Denies excessive sweating, polydipsia or polyuria Hematologic/Lymphatic Hematologic/Lymphatic: Denies easy bleeding, easy bruising or lymphadenopathy Allergic/Immunologic Allergic/Immunologic: Denies itchy eyes, lip swelling, seasonal rhinorrhea, rhinitis, throat swelling, tongue swelling, eczemia, wheezing or asthma Vital Signs Vital Signs Vital Signs: 07/01/24 05:47 07/01/24 05:47 07/01/24 05:47 Temperature Temperature Source Temporal Pulse Rate 78 Respiratory Rate Blood Pressure 134/89 H Blood Pressure Mean BP Systolic 134 BP Diastolic 89 Blood Pressure Source Blood Pressure Position Blood Pressure Location Pulse Ox Oxygen Delivery Method 07/01/24 05:47 07/01/24 05:47 07/01/24 05:47 Temperature 97.6 F L Temperature Source Pulse Rate Respiratory Rate 16 Blood Pressure Blood Pressure Mean BP Systolic BP Diastolic Blood Pressure Source Blood Pressure Position Blood Pressure Location Pulse Ox 98 Oxygen Delivery Method 07/01/24 05:52 07/01/24 07:16 07/01/24 07:16 Temperature 97.6 F L Temperature Source Temporal Pulse Rate 78 72 Respiratory Rate 16 Blood Pressure 134/89 H 128/87 H Blood Pressure Mean 104 BP Systolic 128 BP Diastolic 87 Blood Pressure Source Monitor Blood Pressure Position Semi-Fowlers Blood Pressure Location Left Arm Pulse Ox 98 Oxygen Delivery Method Room Air 07/01/24 07:16 07/01/24 07:16 07/01/24 07:16 Temperature Temperature Source Temporal Pulse Rate Respiratory Rate 16 Blood Pressure Blood Pressure Mean BP Systolic BP Diastolic Blood Pressure Source Blood Pressure Position Blood Pressure Location Pulse Ox 98 Oxygen Delivery Method 07/01/24 07:16 Temperature 98.3 F Temperature Source Pulse Rate Respiratory Rate Blood Pressure Blood Pressure Mean BP Systolic BP Diastolic Blood Pressure Source Blood Pressure Position Blood Pressure Location Pulse Ox Oxygen Delivery Method Weight Weight: 238 lb 1.588 oz Body Mass Index (BMI) 36.1 Physical Exam Const alert, oriented x3, no apparent distress and healthy appearing General Appearance: cooperative; Negative for anxious HEENT normocephalic Face and Sinus: normal facial exam Eyes EOMs intact bilaterally and no scleral icterus General Eye: normal appearance of both eyes Neck full ROM and supple Lymph Lymphatic: no lymphadenopathy noted Chest Chest: abnormal inspection of the chest Resp normal respiratory effort Effort and Inspection: able to speak in complete sentences Cardio regular rate GI soft to palpation and non-tender Inspection: gravid Palpation: soft; Negative for tender external exam normal Manual OB Exam: other 3-4/80/-2, baby a vertex on exam and confirmed via ultrasound both babies are vertex. Back/Spine no CVA tenderness Extremity normal to inspection, full ROM and no clubbing, cyanosis or edema General Extremity: Negative for calf tenderness or edema Skin Lesions: no lesions Rashes: no rashes Psych mental status grossly normal Labs Labs Labs: Blood Type O NEGATIVE Antibody Screen NEGATIVE Hct 31.8 % (37-47) L Hgb 10.2 g/dL (12.0-15.0) L Obstetrics Ultrasound Syphilis Total Ab Non-reactive Rubella IgG Antibody Reactive (Nonreactive) Hep Bs Antigen Non-Reactive (Nonreactive) Hepatitis C Antibody Non-Reactive (Nonreactive) Hepatitis C Ab (EIA) <0.1 s/co ratio (0.0-0.9) Chlamydia DNA (SONA) Negative (Negative) N.gonorrhoeae DNA (SONA) Negative (Negative) HIV 1&2 Antibody Non-Reactive (Nonreactive) Glucose 1 Hr 50 gm 144 mg/dL (70-140) H Gest Glucose Tolerance MG/DL Rhogam given: Yes Miscellaneous Test Assessment & Plan (1) Anemia affecting : COMMENT: Slow Fe. (2) Monochorionic diamniotic twin gestation: COMMENT: Primary section 07/01 @ 12 with JV, confirmed on anatomy scan by MFM. - to follow up at 16 weeks and every 2 weeks- q 1 month growths and mca dopplers starting at 20 weeks, 22 week echo recommended. weekly bpp at 32 weeks with MFM, delivery 37 weeks. C/S 07/01/24. (3) Rh negative status during : COMMENT: RHogam at 28 weeks and PRN. 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 Discussed genetic/carrier testing NIPT low risk, carrier neg. PLAN: Plan Patient presents IOL, plan management for with pitocin/AROM. Pain management: plans epidural. GBS positive and is allegic to pcn. testing did not includ erythromycin. it sensitive to clinda.- starting vanc due to incomplete culture sensitivites Management of any complications: see above I have reviewed the [facility] and made any clinically relevant updates.
[2024-07-01] MEDS: Oxytocin 15 Units/NS 250ml 15 UNITS/250 ML IV.SOLN 2 UNITS IV (08:04)
[2024-07-01] MEDS: Vancomycin HCl 2,000 MG in 0.9% Normal Saline (500mL Bag) 500 ML 175 MG IV (08:05)
[2024-07-01] MEDS: LACTATED RINGERS 500 ML 999 ML IV (11:10)
[2024-07-01] MEDS: fentaNYL-bupivacaine (epidural) 100 ML BAG EPIDURAL (11:42)
--- NOTE | 2024-07-01 12:44 | PCM.PN.BLA ---
Progress Note pt is getting comfortable with epidural. She gives verbal consent to rupture membranes current tracing: FHT: Moderate variability reactive no decelerations category I tracing x 2 [place]: q-3 min Contractions cx: 4/50/-2, membranes ruptured and clear fluid returned. A/P: Twin gestation iol plan to continue pitocin. plan for OR delivery
[2024-07-01] MEDS: Oxytocin 15 Units/NS 250ml 15 UNITS/250 ML IV.SOLN 83 UNITS IV (15:00)
--- NOTE | 2024-07-01 15:19 | EX.PCM.OBRPT ---
Assessment & Plan (1) Monochorionic diamniotic twin gestation: COMMENT: Primary section 07/01 @ 12 with JV, confirmed on anatomy scan by MFM. - to follow up at 16 weeks and every 2 weeks- q 1 month growths and mca dopplers starting at 20 weeks, 22 week echo recommended. weekly bpp at 32 weeks with MFM, delivery 37 weeks. C/S 07/01/24. (2) Anemia affecting : COMMENT: Slow Fe. (3) Rh negative status during : COMMENT: RHogam at 28 weeks and PRN. 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 Discussed genetic/carrier testing NIPT low risk, carrier neg. Maternal Data Information AMANDA Calculator Estimated Delivery Date Method Current WG Current Estimate 07/21/24 LMP (Certain) 37w 1d Other Estimates 07/17/24 Ultrasound #1 37w 5d # 2 Gestational age: 37 weeks 1 day Vaginal Delivery Maternal Presentation Maternal Presentation: Medically Indicated Induction Maternal Presentation: mono/di twin gestation, presents for IOL. Type of Induction: Pitocin and Amniotomy Operative Information Date of Procedure: 07/01/24 Pre-Operative Diagnosis: @ 37 weeks 1 day, mono/di twin gestation Post-Operative Diagnosis: @ 37 weeks 1 day, mono/di twin gestation Surgery / Procedure Performed: Spontaneous Vaginal Delivery Type of Anesthesia: Epidural Estimated Blood Loss: 200cc Time of Delivery: 14:23 Findings Description of Procedure: Patient began pushing and delivered the head in the ANNAMARIA presentation. The head was delivered atraumatically. The anterior and posterior shoulders delivered without complication followed by the rest of the and the infant was placed on the maternal abdomen. Delayed cord clamping was employed for approximately 60 seconds. Cord was clamped and cut. Baby B's membranes were ruptured and presented in the vertex presentation. She pushed one more time and the head delivered. The anterior and posterior shoulders delivered without difficulty. The was placed on the maternal abdomen and after 60 seconds, the cord was clamped and cut. Gentle traction was applied to the cord and the placenta delivered spontaneously immediately following it was noted to be intact with three-vessel cord. The perineum and vagina were inspected and noted to have a small 1st degree perineal laceration. EBL was 200. Patient and tolerated delivery well. Baby A : Alex Baby B: Frances Presentation: Vertex Amniotic Membrane Rupture Type: Artificial Amniotic Fluid Description: Clear Placental Delivery Description: Spontaneous Placenta Disposition: [facility] Cord Vessel Description: 3 Vessels Cord Entanglement: None Infant A Gender: Male (1 minute): 9 (5 minute): 9 Delayed Cord Clamping: Yes Baby B Information Amniotic Membrane Rupture Type: Artificial Presentation: Vertex Operative Information Mode of Delivery: Vaginal Cord Vessel Description: 3 Vessels Cord Entanglement: None Infant B gender: Male (1 minute): 8 (5 minute): 9 Delayed Cord Clamping: Yes Multi Select Codes Urinary/Genital Urinary/Genital CPT Codes: 71528 Vaginal Delivery global pkg and Other Procedure See Report (twin delivery )
--- NOTE | 2024-07-01 15:27 | DCINST_ITS ---
Discharge Instructions Diet Discharge Diet: No restrictions Activity Discharge Activity: Return to Normal Activity, May Not Drive (while taking narcotic pain medications.) and May Shower May resume sexual activity in: 4-6 weeks Dressing / Incision Call your doctor if your incision/area has: Continuous Slow Oozing, Sudden Increased Bleeding, Increased Pain/ Swelling, Increased Redness and Foul Smelling Discharge Follow Up Care Please Follow Up With: Julianne Antony, When: Call [phone] to make an appointment with your doctor in 6 weeks. If you had elevated blood pressure or 4th degree laceration, you will need to be seen in 2 weeks. Test Results: Test results from this visit will be discussed in further detail at your follow- up appointment, if applicable. Discharge Plan Admission Admit Date/Time: 07/01/24 05:59 Primary Reason for Your Visit: vaginal delivery Attending Provider: Julianne Antony Primary Care Provider: Mei Hernandez Discharge Orders/Prescriptions Prescriptions: No Action PNV cmb#95-ferrous fumarate-FA 28 mg iron- 800 mcg tablet 1 tab PO DAILY famotidine [Pepcid] 20 mg tablet 20 mg PO BID Qty: 60 6RF magnesium 200 mg Tablet 200 mg PO DAILY ferrous sulfate [iron] 325 mg (65 mg iron) tablet 325 mg PO QODAY Referrals / Follow Up: Mei Hernandez PA-C [Primary Care Provider] -
--- NOTE | 2024-07-01 15:32 | PLAC_PTH ---
PATIENT: WILLIS GAUTAM LOC: [facility] U#:[id number] AGE/SX: 33/F ROOM: WP007 RE07/01/[address]: Dr. Julianne Antony DO : 1990 BED: 1 DIS: 07/02/2024 SPEC #: [id number] RECD: 07/01/24 16:28 STATUS: SUN SRINIVAS #: [id number] JOHN: 07/01/24 15:[address]: Julianne Antony DEPT: SURGICAL PATHOLOGY RECD BY: Jadiel Gorman ENTERED: 07/02/24 09:58 SP TYPE: PLACENTA OTHR DR: Mei Hernandez PA-C Tissues: Placenta, NOS Procedures: Surgery Specimen Level V HEADER OPERATION: Vaginal delivery PRE-OP DIAGNOSIS: Twin gestation TISSUE SUBMITTED: Placenta MICROSCOPIC DIAGNOSIS Twin placenta: Placental disc - Diamniotic and monochorionic twin placenta (721 gm). - Focal area of infarction (1.0cm in greatest dimension). - Increased calcifications on maternal surface. Placenta A- Membranes - no pathologic diagnosis. Umbilical cord - three blood vessels and no pathologic diagnosis. Placenta B- Membranes- no pathologic diagnosis. Umbilical cord- three blood vessels and no pathologic diagnosis. SJ: 07/04/2024 MICROSCOPIC DESCRIPTION Slides are reviewed. GROSS DESCRIPTION SPECIMEN: TWIN PLACENTA / CLINICAL INFORMATION: Received is a twin placenta consisting of single placental disc, two umbilical cords, and two membranous sacs. Dividing membranous septum is noted in the center of the placental disc. Placenta is not identified as A or B. There are arbitrary assigned A & B. The placenta appears to be diamniotic and monochorionic. A. Weight: A - 2.74 kg; B - 2.755 kg B. Gestational Age: 37 weeks C. Sex: A- Male, B- Male PLACENTAL WEIGHT (POST FIXATION): 721gm PLACENTAL DIMENSIONS: Single placental disc measures 22.0 x 21.0 x 3.5cm PLACENTAL SHAPE: Usual ovoid PLACENTAL WEIGHT FOR GESTATIONAL AGE: Within 10-99th percentile PLACENTA A: MEMBRANES - Present A. Insertion: Marginal B. Site of rupture from edge: 5.0 cm from edge of placental disc C. Color of membrane: Martini-liang D. Abnormalities: None UMBILICAL CORD - Present A. Color: Martini-liang B. Insertion: Central C. Length: 40.0cm D. Diameter: 1.5cm E. Number of vessels: Three F. Abnormalities: None PLACENTA B: MEMBRANES - Present A. Insertion: Marginal B. Site of rupture from edge: 9.0 cm from edge of placental disc C. Color of membrane: Martini-liang D. Abnormalities: None UMBILICAL CORD - Present A. Color: Martini-liang B. Insertion: Marginal C. Length: 35.0cm D. Diameter: 1.0 to 1.5cm E. Number of vessels: Three F. Abnormalities: None PLACENTAL DISC - Present A. Color of surface: Martini-liang B. surface abnormalities: None C. Maternal cotyledons: Maternal surface shows increased speckled calcification D. Attached retro placental clot: None E. Cut surface: Dark red and spongy F. Lesions: Sections reveal a martini indurated area towards placenta A measuring 1.0cm in greatest dimension. G. Separate clot: Multiple blood clots measuring in aggregate 10.0 x 10.0 x 3.5cm and weighing 77gm and intact with minimal tears. SECTIONS SUBMITTED: 11 cassettes 1 - Dividing membranous septum, 2-6 - placenta A (2 - membrane roll, 3 - umbilical cord, end inked black, 4-6 - body of the placenta including maternal and surfaces and cassette 6 contains the lesion), 7-11 - placenta B (7 - membrane roll, 8 - umbilical cord, end inked black, 9-11 - body of the placenta including maternal and surfaces). 07/03/2024 TC:5 CPT: 19531 x2
[2024-07-01 16:35] LABS: Pathology Specimen OB SEE PATHOLOGY REPORT
[2024-07-01] MEDS: Ibuprofen 600 MG Tablet PO (22:32)
[2024-07-02] MEDS: Acetaminophen 500 MG Tablet 1000 MG PO ×2 (04:09→15:39)
[2024-07-02 04:14] VITALS: BP 125/78; PULSE 64; RESP 16; TEMP 36.4; O2SAT 96
[2024-07-02 07:32] VITALS: BP 122/87; PULSE 70; RESP 16; TEMP 36.4; O2SAT 96
--- NOTE | 2024-07-02 08:03 | PN.OBGYN_ITS ---
Subjective Subjective Patient doing well without complaints. Tolerating PO. Ambulating and voiding without difficulty. Twin boys both feeding well/she is pumping. Denies chest pain, shortness of breath, calf pain/swelling, fevers, chills, lightheadedness. Objective Data Objective Data Vital Signs: Vital Signs Temp Pulse Resp BP Pulse Ox O2 Del Method 97.6 F L 70 16 122/87 H 96 Room Air 07/02/24 07:32 07/02/24 07:32 07/02/24 07:32 07/02/24 07:32 07/02/24 07:32 07/02/24 07:32 Oxygen Delivery Method Room Air Weight: 238 lb 1.588 oz Body Mass Index (BMI) 36.1 Intake & Output: Intake and Output for Last 24 Hours 06/30/24 07/01/24 07/02/24 23:59 23:59 23:59 Intake Total 3223.63 / 3223.63 Output Total 1350 / 1350 Balance 1873.63 / 1873.63 Lab / Micro Data 07/01/24 05:30 Physical Exam Const alert and oriented x3 HEENT normocephalic Eyes PERRL Neck full ROM Resp normal respiratory effort GI soft to palpation GI Narrative: FF below U Assessment & Plan (1) Spontaneous vaginal delivery: COMMENT: JV Boys Alex and Frances (2) Rh negative status during : QUALIFIERS: Trimester: unspecified trimester Qualified Code(s): O 26.899 - Other specified related conditions, unspecified trimester; Z67.91 - Unspecified blood type, Rh negative COMMENT: RHogam at 28 weeks and PRN. order for to have blood type done PLAN: Plan s/p PPD # 1 1. routine post delivery care 2. pumping- support given 3. rh negative 4. rubella immune 5. home today if babies able to go
[2024-07-02] MEDS: Ibuprofen 600 MG Tablet PO (08:10)
[2024-07-02 08:21] VITALS: O2SAT 96
[2024-07-02 12:04] VITALS: BP 123/75; PULSE 71; RESP 16; TEMP 36.7; O2SAT 95
--- NOTE | 2024-07-02 13:08 | NURSING ---
reviewed and agree with student nurse charting that is used for educational and learning purposes.
[2024-07-02 15:22] VITALS: BP 131/81; PULSE 66; RESP 16; TEMP 36.6; O2SAT 99
[2024-07-02 16:57] VITALS: RESP 14
== END 2024-07-02 17:20 | disposition home or self-care (01) | DRG 807 ==
PROVIDERS: Admitting Provider Obstetrics & Gynecology; PCP Family Medicine; Referring Provider Obstetrics & Gynecology; Visit Provider Obstetrics & Gynecology
DX: O30.033 Twin pregnancy, monochorionic/diamniotic, third trimester (principal); Z37.2 Twins, both liveborn; D64.9 Anemia, unspecified; O99.824 Streptococcus B carrier state complicating childbirth; O70.0 First degree perineal laceration during delivery; O99.02 Anemia complicating childbirth; Z88.0 Allergy status to penicillin; Z3A.37 37 weeks gestation of pregnancy
CPT/HCPCS: 59025; 59050; 76815; 85025; 86780; 86850; 86900; 86901; 88307; 99221; J7040; J7120; G0378; J2405

== ENCOUNTER → 2024-07-14 | Outpatient (CLI) | payer OTHER, SELFPAY | END | disposition home or self-care (01) | LOC: LABSPEC 14:56 | PROVIDERS: PCP Family Medicine; Referring Provider Obstetrics & Gynecology; Visit Provider Obstetrics & Gynecology | DX: N76.0 Acute vaginitis (principal) | CPT/HCPCS: 87070; 87077; 87186; 87205 ==

== ENCOUNTER 2024-07-16 14:51 | Outpatient (CLI) | payer OTHER, SELFPAY ==
[2024-07-16 14:58] VITALS: BP 142/89; PULSE 74; RESP 16; TEMP 36.2; O2SAT 98; BMI 31.3
[2024-07-16] MEDS: Meropenem 1 GM in 0.9% Normal Saline (100mL MB+) 100 ML IV (15:15)
[2024-07-16] MEDS: 0.9% Normal Saline (100mL Bag) 100 ML 15 ML IV (15:15)
[2024-07-16] MEDS: 0.9% NaCl Peripheral Flush Adult/Peds IV (15:16)
[2024-07-16 15:56] VITALS: BP 119/84; PULSE 74; RESP 16; TEMP 36.1
== END 2024-07-16 23:59 | disposition home or self-care (01) ==
PROVIDERS: PCP Family Medicine; Referring Provider Obstetrics & Gynecology; Visit Provider Obstetrics & Gynecology
DX: O86.12 Endometritis following delivery (principal)
CPT/HCPCS: 96365; J2185; A4216

== ENCOUNTER 2024-07-17 14:24 | Outpatient (CLI) | payer OTHER, SELFPAY ==
[2024-07-17 14:44] VITALS: BP 143/76; PULSE 75; RESP 16; TEMP 35.6; O2SAT 99
[2024-07-17] MEDS: 0.9% Normal Saline (100mL Bag) 100 ML 15 ML IV (14:47)
[2024-07-17] MEDS: 0.9% NaCl Peripheral Flush Adult/Peds IV (14:47)
[2024-07-17] MEDS: Meropenem 1 GM in 0.9% Normal Saline (100mL MB+) 100 ML IV (14:51)
[2024-07-17 15:30] VITALS: BP 133/77; PULSE 62; RESP 16
== END 2024-07-17 23:59 | disposition home or self-care (01) ==
LOC: MEDOUTP 14:24
PROVIDERS: PCP Family Medicine; Referring Provider Obstetrics & Gynecology; Visit Provider Obstetrics & Gynecology
DX: O86.12 Endometritis following delivery (principal)
CPT/HCPCS: 96365; J2185; A4216

== ENCOUNTER 2024-07-18 13:24 | Outpatient (CLI) | payer OTHER, SELFPAY ==
[2024-07-18 13:30] VITALS: BP 129/83; PULSE 67; RESP 16; TEMP 35.9; O2SAT 100; BMI 31.3
[2024-07-18] MEDS: 0.9% NaCl Peripheral Flush Adult/Peds IV ×2 (13:39→14:24)
[2024-07-18] MEDS: Meropenem 1 GM in 0.9% Normal Saline (100mL MB+) 100 ML IV (13:43)
[2024-07-18 14:25] VITALS: BP 126/86; PULSE 73; RESP 16; TEMP 36.2; O2SAT 96
== END 2024-07-18 23:59 | disposition home or self-care (01) ==
LOC: MEDOUTP 13:24
PROVIDERS: PCP Family Medicine; Referring Provider Obstetrics & Gynecology; Visit Provider Obstetrics & Gynecology
DX: O86.12 Endometritis following delivery (principal)
CPT/HCPCS: 96365; J2185; A4216

== ENCOUNTER 2024-07-19 13:37 | Outpatient (CLI) | payer OTHER, SELFPAY ==
[2024-07-19] MEDS: 0.9% NaCl Peripheral Flush Adult/Peds IV ×2 (13:47→14:20)
[2024-07-19] MEDS: Meropenem 1 GM in 0.9% Normal Saline (100mL MB+) 100 ML IV (13:47)
[2024-07-19 13:50] VITALS: BP 123/81; PULSE 72; RESP 14; TEMP 36.6; O2SAT 99
--- NOTE | 2024-07-19 14:21 | NURSING ---
flushed and wrapped iv and patient left
== END 2024-07-19 14:20 | disposition home or self-care (01) ==
LOC: MEDOUTP 13:38 → PCU 13:39
PROVIDERS: PCP Family Medicine; Referring Provider Obstetrics & Gynecology; Visit Provider Obstetrics & Gynecology
DX: O86.12 Endometritis following delivery (principal)
CPT/HCPCS: 96365; J2185; A4216

== ENCOUNTER 2024-07-20 13:22 | Outpatient (CLI) | payer OTHER, SELFPAY ==
[2024-07-20 13:40] VITALS: BP 118/77; PULSE 65; RESP 16; TEMP 36.4; O2SAT 97
[2024-07-20] MEDS: Meropenem 1 GM in 0.9% Normal Saline (100mL MB+) 100 ML IV (13:41)
[2024-07-20] MEDS: 0.9% NaCl Peripheral Flush Adult/Peds IV (14:43)
== END 2024-07-20 14:44 | disposition home or self-care (01) ==
LOC: MEDOUTP 13:23 → PCU 13:24
PROVIDERS: PCP Family Medicine; Referring Provider Obstetrics & Gynecology; Visit Provider Obstetrics & Gynecology
DX: O86.12 Endometritis following delivery (principal)
CPT/HCPCS: 96365; J2185; A4216

== ENCOUNTER 2024-07-21 14:27 | Outpatient (CLI) | payer OTHER, SELFPAY ==
[2024-07-21 14:50] VITALS: BP 117/76; PULSE 61; RESP 16; TEMP 36.1; O2SAT 94
[2024-07-21] MEDS: 0.9% NaCl Peripheral Flush Adult/Peds IV ×2 (14:58→15:42)
[2024-07-21] MEDS: 0.9% NaCl IVPB Med Flush (250 mL) 15 ML IV (14:58)
[2024-07-21] MEDS: Meropenem 1 GM in 0.9% Normal Saline (100mL MB+) 100 ML IV (14:58)
[2024-07-21 15:12] LABS: Absolute Lymphocyte Count 1.52 X10^3/uL (0.83-4.51); Absolute Neutrophil Count 3.2 X10^3/uL (2.0-7.7); Basophil# 0.01 X10^3/uL; Basophil% 0.2 % (0-1); Eosinophil# 0.12 X10^3/uL; Eosinophils% 2.3 % (0-5); Hematocrit 38.5 % (37-47); Hemoglobin 12.2 g/dL (12.0-15.0); Lymphocyte # 1.52 X10^3/ul (0.83-4.51); Lymphocyte % 29.7 % (19-41); Mean Corp Hgb Conc 31.7 g/dL (32-36); Mean Corpuscular Hgb 28.6 pg (27.0-32.0); Mean Corpuscular Volume 90.4 fL (81-99); Monocyte# 0.26 X10^3/uL; Monocyte% 5.1 % (0-10); NRBC Flagged by Analyzer 0 % (0-5); Neutrophil % 62.5 % (47-70); Platelet Count 253 K/mm3 (150-450); RBC Distribution Width CV 13.4 % (11.6-14.6); RBC Distribution Width SD 44.4 fl (35.1-43.9); Red Blood Count 4.26 M/mm3 (4.2-5.4); White Blood Count 5.1 K/mm3 (4.4-11.0)
[2024-07-21 15:29] LABS: ALB/GLOB Ratio 1.1 RATIO (0.9-2.4); AST(SGOT) 26 U/L (15-37); Alanine Aminotransfer ALT/SGPT 42 U/L (13-56); Albumin, Serum 3.7 g/dL (3.2-5.0); Alkaline Phosphatase 83 U/L (45-117); Anion Gap 8 (5-15); BUN 15 mg/dL (7-18); BUN/Creat Ratio 24.8 RATIO (10-20); Calcium,Total 9.3 mg/dL (8.5-10.1); Chloride 108 mmol/L (98-107); EST Glomerular Filtration Rate 121 mL/min (>60); Est Glom Filt Rate - Afr Amer 147 mL/min (>60); Globulin 3.5 g/dL (2.2-4.2); Glucose 91 mg/dL (74-106); Protein, Total 7.2 g/dL (6.4-8.2); Sodium Level 142 mmol/L (136-145)
[2024-07-21 15:44] VITALS: BP 121/76; RESP 16; TEMP 36
[2024-07-21 23:00] LABS: Xtra Tube EP Lab EXTRA TUBE
== END 2024-07-21 23:59 | disposition home or self-care (01) ==
LOC: MEDOUTP 14:27
PROVIDERS: PCP Family Medicine; Referring Provider Obstetrics & Gynecology; Visit Provider Obstetrics & Gynecology
DX: O86.12 Endometritis following delivery (principal)
CPT/HCPCS: 96365; 80053; 85025; J2185; J7050; A4216

== ENCOUNTER 2024-07-22 13:54 | Outpatient (CLI) | payer OTHER, SELFPAY ==
[2024-07-22] MEDS: 0.9% NaCl Peripheral Flush Adult/Peds IV (14:17)
[2024-07-22] MEDS: Meropenem 1 GM in 0.9% Normal Saline (100mL MB+) 100 ML IV (14:18)
[2024-07-22] MEDS: 0.9% NaCl IVPB Med Flush (250 mL) 15 ML IV (14:18)
[2024-07-22 14:20] VITALS: BP 121/76; PULSE 83; RESP 16; TEMP 36.4; O2SAT 97
[2024-07-22 15:14] VITALS: BP 122/65; PULSE 72
== END 2024-07-22 23:59 | disposition home or self-care (01) ==
LOC: MEDOUTP 13:54
PROVIDERS: PCP Family Medicine; Referring Provider Obstetrics & Gynecology; Visit Provider Obstetrics & Gynecology
DX: O86.12 Endometritis following delivery (principal)
CPT/HCPCS: 96365; J2185; J7050; A4216

== ENCOUNTER 2024-07-23 13:57 | Outpatient (CLI) | payer OTHER, SELFPAY ==
[2024-07-23 14:07] VITALS: BP 141/72; PULSE 109; RESP 16; TEMP 36.7
[2024-07-23] MEDS: Meropenem 1 GM in 0.9% Normal Saline (100mL MB+) 100 ML IV (14:08)
[2024-07-23] MEDS: 0.9% NaCl Peripheral Flush Adult/Peds IV ×2 (14:08→14:55)
[2024-07-23 14:54] VITALS: BP 118/66; PULSE 92; RESP 16; TEMP 36.3
== END 2024-07-23 23:59 | disposition home or self-care (01) ==
LOC: MEDOUTP 13:57
PROVIDERS: PCP Family Medicine; Referring Provider Obstetrics & Gynecology; Visit Provider Obstetrics & Gynecology
DX: O86.12 Endometritis following delivery (principal)
CPT/HCPCS: 96365; J2185; J7050; A4216

== ENCOUNTER 2024-07-24 13:54 | Outpatient (CLI) | payer OTHER, SELFPAY ==
[2024-07-24 14:08] VITALS: BP 132/74; PULSE 89; RESP 16; TEMP 36.2; O2SAT 97
[2024-07-24] MEDS: 0.9% NaCl Peripheral Flush Adult/Peds IV ×2 (14:14→15:10)
[2024-07-24] MEDS: 0.9% NaCl IVPB Med Flush (250 mL) 15 ML IV (14:17)
[2024-07-24] MEDS: Meropenem 1 GM in 0.9% Normal Saline (100mL MB+) 100 ML IV (14:23)
== END 2024-07-24 23:59 | disposition home or self-care (01) ==
PROVIDERS: PCP Family Medicine; Referring Provider Obstetrics & Gynecology; Visit Provider Obstetrics & Gynecology
DX: O86.12 Endometritis following delivery (principal)
CPT/HCPCS: 96365; J2185; J7050; A4216

== ENCOUNTER 2024-07-24 15:22 | Emergency (ER) | payer OTHER, SELFPAY ==
[2024-07-24] VITALS (8 sets, daily range): BP systolic 114–138; BP diastolic 64–101; PULSE 68–89; RESP 15–18; TEMP 36.6–37; O2SAT 98; BMI 31.3
[2024-07-24 15:43] LABS: Mucous, Urine 0 SEEN /hpf (<or=2+)
[2024-07-24 15:45] LABS: Absolute Lymphocyte Count 0.38 X10^3/uL (0.83-4.51); Absolute Neutrophil Count 2.4 X10^3/uL (2.0-7.7); Eosinophil# 0.08 X10^3/uL; Eosinophils% 2.5 % (0-5); Hematocrit 37.3 % (37-47); Lymphocyte # 0.38 X10^3/ul (0.83-4.51); Lymphocyte % 11.9 % (19-41); Mean Corp Hgb Conc 32.2 g/dL (32-36); Mean Corpuscular Hgb 29.1 pg (27.0-32.0); Mean Corpuscular Volume 90.5 fL (81-99); Monocyte% 9.4 % (0-10); NRBC Flagged by Analyzer 0 % (0-5); Neutrophil # 2.42 X10^3/uL (2.7-7.7); Neutrophil % 76.2 % (47-70); POSITIVE DIFFERENTIAL YES; Platelet Count 158 K/mm3 (150-450); RBC Distribution Width CV 13.4 % (11.6-14.6); RBC Distribution Width SD 44.5 fl (35.1-43.9); Red Blood Count 4.12 M/mm3 (4.2-5.4); White Blood Count 3.2 K/mm3 (4.4-11.0)
[2024-07-24 16:00] LABS: ALB/GLOB Ratio 0.9 RATIO (0.9-2.4); AST(SGOT) 33 U/L (15-37); Alanine Aminotransfer ALT/SGPT 45 U/L (13-56); Albumin, Serum 3.2 g/dL (3.2-5.0); Alkaline Phosphatase 75 U/L (45-117); Anion Gap 6 (5-15); BUN 12 mg/dL (7-18); Calcium,Total 8.8 mg/dL (8.5-10.1); Chloride 111 mmol/L (98-107); Creatinine, Serum 0.55 mg/dL (0.55-1.02); EST Glomerular Filtration Rate 137 mL/min (>60); Est Glom Filt Rate - Afr Amer 165 mL/min (>60); Estimated Creatinine Clearance 175.48 ml/min; Globulin 3.7 g/dL (2.2-4.2); Glucose 95 mg/dL (74-106); Protein, Total 6.9 g/dL (6.4-8.2); Sodium Level 139 mmol/L (136-145)
[2024-07-24 16:10] LABS: Internal QC Validated? YES +Cl - CLEAR BKGD; Pregnancy, Serum, hCG Quali. NEGATIVE Negative
[2024-07-24 16:12] LABS: Color, Urine Yellow (Yellow); Glucose, Dipstick Normal (Normal); Ketone-Dipstick Negative (Negative); Leukocyte Esterase-Dipstick 100 /ul (Negative); Nitrite-Dipstick Negative (Negative); Occult Blood-Urine 25 /ul (Negative); Protein-Dipstick 15 mg/dl (Negative); Urine Bilirubin Dipstick Negative (Negative); Urine Clarity Clear (Clear); Urine Urobilinogen Normal (Normal); Urine pH 6.5 (5.0 - 8.0)
[2024-07-24 16:38] LABS: White Blood Cells 5-10 SEEN /hpf (0-5)
[2024-07-24 16:39] LABS: Bacteria RARE /hpf (None Seen); Red Blood Cells-Urine 0-5 SEEN /hpf (0-5); Squamous Epithelial Cells - UA 5-10 SEEN /hpf (5-10)
--- OUTSIDE RECORDS SUMMARY | 2024-07-24 18:56 | XMS RPT_ITS | CCD ---
Author Organization [facility] Care Team Providers Care Inspector Canned Food Reconditioning Name Role Phone Mei Hernandez PA-C Primary Care Provider Kristian Parikh DO Unavailable Josefa Noel PA-C Unavailable ABDON DRUMMOND Referring Unavailable MEI HERNANDEZ Primary Care Unavailable Mei Hernandez PA-C Primary Care Provider [phone] Kristian Parikh DO Unavailable Josefa Noel PA-C Unavailable MEI HERNANDEZ Attending Unavailable MEI HERNANDEZ Primary Care Unavailable MEI HERNANDEZ Admitting Unavailable MEI HERNANDEZ PAC Consulting Unavailable PROVIDER, UNKNOWN Consulting Unavailable Ivan Fowler PA-C Unavailable [phone] Cardiology Provider Unavailable Unavailable Dr. Mei Santos MD Unavailable Neurology Provider Unavailable Unavailable Rheumatolgy Provider Unavailable Unavailable Diana GOODMAN, Rosy Unavailable Day SECURITY TEST ENGINEER, Yanique Unavailable Unavailable Mei Hernandez PA-C Unavailable [phone] Farnaz Simon LPN Unavailable Unavailable King ANIKET-C, Haven Alejandra Unavailable Aixa Escalante RN Unavailable Roby ALVA, Suki Kenney Unavailable Unavailable Anyi Norris PA-C Unavailable Beto BOLIVAR, Sheri Hartmann Unavailable Bobby Teixeira MD Unavailable Vess SECURITY TEST ENGINEER, Luis Fisher Unavailable Unavailable Unavailable Unavailable David JOLLEY-C, Mei D Primary Care Provider Josefa Noel PA-C Unavailable [facility] Primary Care Unavailable MARY HERRERA Referring Unavailable [facility] ME[facility] D Primary Care Unavailable [facility] MEI D Primary Care Unavailable ELLEN CENTENO Attending Unavailable [facility] MEI D Primary Care Unavailable DANAE MARC Referring Unavailable [facility] MEI D Primary Care Unavailable ELLEN CENTENO Referring Unavailable [facility] MEI D Primary Care Unavailable [facility] ME[facility] D Primary Care Unavailable DANAE MARC Attending Unavailable [facility] D Primary Care Unavailable Unavailable Primary Care Provider Unavailabl e ANGELI GIBSON Admitting Unavailable ANGELI GIBSON Attending Unavailable THUY GARCIA Consulting Unavailabl e [facility] D Primary Care Unavailable DEBORAH SUERO Attending Unavailable ANGELI GIBSON Referring [facility] Attending Unavailable [facility] Primary Care Unavailable SARANYA HART Referring Unavailabl e [facility] MEI D Primary Care Unavailable MITZI BESS Attending Unavailable SARANYA HART Referring Unavailabl e [facility] MEI D Primary Care Unavailable SARANYA HART Referring Unavailabl e PEREZ, KAYLA A Attending Unavailable [facility] ME[facility] D Primary Care Unavailable SARANYA HART Referring Unavailabl e PEREZ, KAYLA A Attending Unavailable [facility] ME[facility] D Primary Care Unavailable SARANYA HART Referring Unavailabl e PEREZ, KAYLA A Attending Unavailable [facility] ME[facility] D Primary Care Unavailable SARANYA HART Referring Unavailabl e [facility] MEI D Primary Care Unavailable ANGELI GIBSON Attending Unavailable SARANYA HART Referring Unavailabl e [facility] MEI D Primary Care Unavailable LILIANA SYED Attending Unavailable SARANYA HART Referring Unavailabl e [facility] MEI D Primary Care Unavailable CLAUDIA AGUILERA Referring Unavailable ANGELI GIBSON Attending Unavailable [facility] ME[facility] D Primary Care Unavailable ANGELI GIBSON Attending Unavailable CLAUDIA AGUILERA Referring Unavailable PEREZ, KAYLA Chatman Attending Unavailable [facility] ME[facility] D Primary Care Unavailable MARCANTHONY, SARANYA E Referring Unavailmichell peters EPREZ, KAYLA A Attending [facility] Primary Care Unavailable SARANYA HART Referring Unavailabl lorraine CRUZBARBRANDEN MEIERICE F Attending Unavailable [facility] Unavailable SARANYA HART Referring Unavailabl lorraine CRUZBAR, LUCINDA F Attending Unavailable [facility] MEI D Primary Care Unavailable SARANYA HART Referring Unavailmichell peters [facility] MEI Referring Unavailable JACOBO NICHOLS Attending Unavailable [facility] Primary Care Unavailable [facility] MEI Referring Unavailable JACOBO NICHOLS Attending Unavailable [facility] Primary Care Unavailable [facility] MEI Referring Unavailable MAGDALENA, JACOBO Attending Unavailable Allergies Allergy Classification Reported Allergen(s) Allergy Type Date of Onset Reaction(s) Facility (20 sources) Latex; Translations: [LATEX] Drug Allergy 1 Other: See [facility] (4 sources) Penicillins; Translations: [PENICILLINS] Drug Allergy 4 Rash, [facility] (17 sources) Penicillins Drug Allergy 4 Rash, [facility] (1 source) Penicillins Drug allergy (disorder) [facility] Repository (1 source) Penicillin V Drug Allergy [facility], [facility]; [facility], [facility] (2 sources) Penicillins Propensity to adverse reactions 4 [facility] Medications Current Medications Medication Drug Class(es) Dates Sig (Normalized) Sig (Original) cefdinir 300 mg oral capsule (1 source) Cephalosporin Antibacterial Start: 01-14-2024 End: 01-21-2024 take 1 capsule by mouth twice daily cefdinir (OMNICEF) 300 mg capsule Take 1 capsule by mouth two times a day for 7 days. 14 capsule 0 01/14/2024 01/21/2024 Active Comment on above: Take 1 capsule by [facility] two times a day for 7 days. doxycycline monohydrate 100 mg oral tablet (1 source) Tetracycline-class Drug Start: 09-27-2022 End: 10-04-2022 take 1 tablet by mouth twice daily doxycycline monohydrate 100 mg tablet Take 1 tablet by mouth twice daily for 7 days. 14 tablet 0 09/27/2022 10/04/2022 Active Comment on above: Take 1 tablet by [facility] twice daily for 7 days. Famotidine (5 sources) Histamine-2 Receptor Antagonist take 1 tablet by mouth twice daily famotidine (Pepcid) 20 MG tablet Take 20 mg by mouth 2 times daily. Active famotidine (PEPC ID ORAL) Take by mouth. Active ferrous sulfate 325 mg oral tablet (2 sources) take 1 tablet by mouth once daily at breakfast ferrous sulfate 325 (65 Fe) MG tablet Take 325 mg by mouth daily (with breakfast). Active magnesium aspart,citrate,oxide (TRIPLE MAGNESIUM COMPLEX) 400 mg magnesium cap (3 sources) magnesium aspart,citrate,oxide (TRIPLE MAGNESIUM COMPLEX) 400 mg magnesium cap Take by mouth as directed. Active magnesium oxide 400 mg oral tablet (2 sources) take 1 tablet by mouth once daily magnesium oxide (Mag-Ox) 400 mg tablet Take 400 mg by mouth daily. Active pantoprazole 20 mg delayed release oral tablet (1 source) Proton Pump Inhibitor Start: 0 Pantoprazole Sodium 20 MG Oral Tablet Delayed Release ; 1 (one) Tablet daily, 30 minutes prior to breakfast for 0 days Quantity: 30 {Tablet} Refills: 11 Ordered: 20-Jul-2020 MIGUELITO Hernandez Start: 20-Jul-2020 predniSONE 10 mg oral tablet (2 sources) Start: 3 End: 3 take 4 tablets by mouth once daily predniSONE (DELTASONE) 10 mg tablet Take 4 tablets by mouth once daily for 5 days. 20 tablet 0 06/10/2023 06/15/2023 Active Start: 05-10-2022 End: 05-15-2022 take 2 tablets by mouth once daily predniSONE (DELTASONE) 20 mg tablet Take 2 tablets by mouth once daily for 5 days. 10 tablet 0 05/10/2022 05/15/2022 Active Comment on above: Take 2 tablets by [facility] once daily for 5 days. Take 4 tablets by mo [facility] once daily for 5 days. MV-Min-Fe Fum-FA-DHA ( 1 PO) (2 sources) MV-Min- Fe Fum-FA-DHA ( 1 PO) Take by mouth. Active vit no.124/iron/folic ( VITAMIN ORAL) (3 sources) vit no.124/iron/folic ( VITAMIN ORAL) Take by mouth. Active Completed/Discontinued Medications Medication Drug Class(es) Dates Sig (Normalized) Sig (Original) Acetaminophen (2 sources) Start: 06-06-2024 End: 06-07-2024 take 1 tablet by mouth every six hours as needed for pain and fever acetaminophen (Tylenol) tablet 650 mg acetylcholine 10% solution - [facility] (10 sources) Start: 10-31-2018 End: 03-01-2023 acetylcholine 10% solution - [facility] Start: 10-31-2018 acetylcholine 10% solution - [facility] acyclovir 400 mg oral tablet (3 sources) Herpesvirus Nucleoside Analog DNA Polymerase Inhibitor, Herpes Simplex Virus Nucleoside Analog DNA Polymerase Inhibitor, Herpes Zoster Virus Nucleoside Analog DNA Polymerase Inhibitor Start: 10-28-2014 End: 11-07-2014 take 1 tablet by mouth three times daily ACYCLOVIR, 400MG (Oral Tablet) ; 1 (one) Tablet three times daily for 10 days Quantity: 30 {Tablet} Refills: 0 Ordered: 28-Oct-2014 MIGUELITO Hernadnez Start: 28-Oct-2014 End: 07-Nov-2014 Status: Inactive Start: 06-29-2014 End: 01-27-2015 ZOVIRAX, 5% (External Cream) ; 1 (one) application(s) application(s) to cold sore five times daily for 4 days for 0 days Quantity: 2 {Gram} Refills: 3 Ordered: 27-Jan-2015 ARTIE Ca Start: 29-Jun-2014 End: 27-Jan-2015 Status: Inactive Comments: Apply at symptom onset Start: 06-29-2014 End: 07-09-2014 take 1 tablet by mouth three times daily ACYCLOVIR, 400MG (Oral Tablet) ; 1 (one) Tablet three times daily for 10 days Quantity: 30 {Tablet} Refills: 0 Ordered: 21-Jul-2014 MIGUELITO Hernandez Start: 29-Jun-2014 End: 09-Jul-2014 Status: Inactive Comment on above: Apply at symptom ons et ALPRAZolam 0.25 mg oral tablet (1 source) Benzodiazepine Start: 016 End: 018 take 0.5-1 tablets by mouth three times daily as needed Xanax 0.25 MG Oral Tablet ; 1/2 to 1 Tablet Tablet three times a day as needed for 0 days Quantity: 30 {Tablet} Refills: 0 Ordered: 22-May-2018 ARTIE Ca Suki Pablito Start: 18-Jul-2016 End: 22-May-2018 Status: Inactive Comments: Medication taken as needed. Comment on above: Medication taken as needed. azithromycin 250 mg oral tablet (1 source) Macrolide Antimicrobial Start: End: Zithromax Z-Graham 250 MG Oral Tablet ; 2 (two) Tablet today and then 1 tablet daily x 4 days for 0 days Quantity: 1 {Package} Refills: 0 Ordered: 15-May-2019 MAXINE Roberts Start: 28-Feb-2019 End: 15-May-2019 Status: Inactive betamethasone 3 mg/ml / betamethasone acetate 3 mg/ml injectable suspension (2 sources) Corticosteroid Start: End: inject 6 mg by intramuscular injection once 6 mg, IntraMUSCular, Once, On Sun06/06/24 at 2300, For 1 dose Start: 06-06-2024 End: 06-06-2024 inject 6 mg by intramuscular injection once 6 mg, IntraMUSCular, Once, On Sun06/06/24 at 2300, For 1 dose calcium chloride 0.0014 meq/ml / potassium chloride 0.004 meq/ml / sodium chloride 0.103 meq/ml / sodium lactate 0.028 meq/ml injectable solution (2 sources) Start: 06-06-2024 End: 06-07-2024 take 125 mL intravenously every hour 125 mL/hr, IntraVENous, Continuous, Starting on Sun06/06/24 at 0445 cephalexin 500 mg oral capsule (1 source) Cephalosporin Antibacterial Start: 05-15-2019 End: 05-25-2019 take 1 capsule by mouth three times daily Cephalexin 500 MG Oral Capsule ; 1 Capsule three times daily for 10 days Quantity: 30 {Capsule} Refills: 0 Ordered: 15-May-2019 MIGUELITO Hernandez Start: 15-May-2019 End: 25-May-2019 Status: Inactive chlorhexidine gluconate 40 mg/ml medicated liquid soap (2 sources) Start: 06-06-2024 End: 06-07-2024 ciprofloxacin 500 mg oral tablet (1 source) Quinolone Antimicrobial Start: 03-04-2013 End: 10-13-2013 take 1 tablet by mouth twice daily CIPRO, 500MG (Oral Tablet) ; 1 Tab two times daily for 5 days Quantity: 10 {Tab} Refills: 6 Ordered: 13-Oct-2013 MIGUELITO Hernandez Start: 04-Mar-2013 End: 13-Oct-2013 Status: Inactive docusate sodium 100 mg oral capsule (2 sources) Start: 06-06-2024 End: 06-07-2024 escitalopram 10 mg oral tablet (10 sources) Serotonin Reuptake Inhibitor Start: 05-13-2021 End: 07-02-2023 take 0.5 tablet by mouth once daily escitalopram oxalate (LEXAPRO) 10 mg tablet Take 0.5 tablets by mouth once daily. 30 tablet 1 05/13/2021 07/02/2023 Discontinued (Course of therapy completed) Comment on above: Take 0.5 tablets by mouth once daily. famotidine (Pepcid) 20 mg in sodium chloride (PF) 0.9 % 10 mL injection (4 sources) Start: 06-06-2024 End: 06-07-2024 famotidine (Pepcid) 20 mg in sodium chloride (PF) 0.9 % 10 mL injection Start: 06-06-2024 End: 06-06-2024 20 mg, IntraVENous, Administ er over 2 Minutes, Every 12 hours scheduled (2 times per day), First dose on Sun06/06/24 at 0900, IV Push over minimum of 2 minutes - Dilute with 10 mL NS FLUoxetine 20 mg oral capsule (1 source) Serotonin Reuptake Inhibitor Start: 01-04-2017 End: 05-22-2018 take 1 capsule by mouth once daily FLUoxetine HCl 20 MG Oral Capsule ; 1 (one) Capsule Capsule daily for 0 days Quantity: 30 {Capsule} Refills: 3 Ordered: 22-May-2018 ARTIE Ca Start: 04-Jan-2017 End: 22-May-2018 Status: Inactive fluticasone propionate 0.05 mg/actuat metered dose nasal spray (1 source) Corticosteroid Start: 05-27-2014 End: 06-26-2014 take 2 spray(s) nasal route once daily FLUTICASONE PROPIONATE, 50MCG/ACT (Nasal Suspension) ; 2 (two) sprays each nostril sprays each nostril daily for 30 days Quantity: 1 {Bottle} Refills: 0 Ordered: 27-May-2014 MAXINE Roberts Start: 27-May-2014 End: 26-Jun-2014 Status: Inactive levoFLOXacin 500 mg oral tablet (1 source) Quinolone Antimicrobial Start: 10-13-2013 End: 10-23-2013 take 1 tablet by mouth once daily LEVAQUIN, 500MG (Oral Tablet) ; 1 Tab daily for 10 days Quantity: 10 {Tablet} Refills: 0 Ordered: 13-Oct-2013 MIGUELITO Hernandez Start: 13-Oct-2013 End: 23-Oct-2013 Status: Inactive loratadine 10 mg oral tablet (10 sources) Start: 05-10-2022 End: 07-02-2023 take 1 tablet by mouth once daily loratadine (CLARITIN) 10 mg tablet Take 1 tablet by mouth once daily. 30 tablet 11 05/10/2022 07/02/2023 Discontinued (Course of therapy completed) Comment on above: Take 1 tablet by alvino th once daily. Magnesium (12 sources) End: 07-02-2023 Magnesium 200 mg tab Take by mouth. 07/02/2023 Discontinued (Course of therapy completed) End: 07-02-2023 Magnesium 200 mg tab Take by mouth. 0 07/02/2023 Discontinued (Course of therapy completed) Magnesium 200 mg tab Take by mouth. 0 Active Comment on above: Take by mouth. NIFEdipine 10 mg oral capsule (4 sources) Dihydropyridine Calcium Channel Jhoana Start: 4 End: 4 take 1 dose by mouth four times daily, then take 20 mg by mouth once, then take 10 mg by mouth every six hours 20 mg, Oral, Every 6 hours scheduled (4 times per day), First dose (after last modification) on Sun06/06/24 at 1800, For 5 doses, Begin with Procardia 20 mg po once as a Loading Dose then 10 mg po every 6 hours. Hold for SBP Start: 06-06-2024 End: 06-06-2024 take 1 dose by mouth four times daily, then take 20 mg by mouth once, then take 10 mg by mouth every six hours 10 mg, Oral, Every 6 hours scheduled (4 times per day), First dose on 9/6/24 at 0600, For 9 doses, Begin with Procardia 20 mg po once as a Loading Dose then 10 mg po every 6 hours. Hold for SBP ondansetron ODT (Zofran-ODT) disintegrating tablet 4 mg (2 sources) Start: 06-06-2024 End: 06-07-2024 take 1 tablet by mouth every eight hours as needed for nausea and vomiting ondansetron ODT (Zofran-ODT) disintegrating tablet 4 mg vitamin tablet (2 sources) Start: 06-06-2024 End: 06-07-2024 take 1 tablet by mouth once daily 1 tablet, Oral, Daily, First dose on Sun06/06/24 at 0900, With First Dose As Scheduled. promethazine hydrochloride 25 mg oral tablet (1 source) Phenothiazine Start: 07-29-2015 End: 07-18-2016 take 1 tablet by mouth every six hours for nausea and vomiting Promethazine HCl 25 MG Oral Tablet ; 1 Tablet Every 6 hours for nausea and vomiting for 0 days Quantity: 12 {Tablet} Refills: 0 Ordered: 18-Jul-2016 MAXINE Roberts Start: 29-Jul-2015 End: 18-Jul-2016 Status: Inactive raNITIdine 150 mg oral tablet (1 source) Histamine-2 Receptor Antagonist Start: 06-29-2014 End: 10-28-2014 take 1 tablet by mouth twice daily RANITIDINE HCL, 150MG (Oral Tablet) ; 1 (one) Tablet two times daily for 0 days Quantity: 60 {Tablet} Refills: 0 Ordered: 28-Oct-2014 ARTIE Ca Start: 29-Jun-2014 End: 28-Oct-2014 Status: Inactive vitamin e 450 mg oral capsule (1 source) Vitamin E Comple x Status: Inactive Problems Active Problems Problem Classification Problem Date Documented Date Episodic/Chronic Abdominal pain (4 sources) Pain in female pelvis; Translations: [Pelvic and perineal pain] Episodic Anxiety disorders (19 sources) Anxiety; Translations: [Anxiety disorder, unspecified] Onset: 05-13-2021 05-13-2021 Chronic Cardiac dysrhythmias (18 sources) Premature atrial contraction; Translations: [Atrial premature depolarization] Onset: 09-01-2015 09-01-2015 Chronic Conditions associated with dizziness or vertigo (1 source) Dizziness; Translations: [Dizziness and giddiness] 12-23-2018 Episodic Diseases of mouth; excluding dental (1 source) Oral lesion; Translations: [Other lesions of oral mucosa] 10-28-2014 Episodic Early or threatened labor (8 sources) Premature uterine contraction; Translations: [False labor before 37 completed weeks of gestation, unspecified trimester] Onset: 06-06-2024 06-06-2024 Episodic Esophageal disorders (2 sources) Gastroesophageal reflux disease; Translations: [Gastro-esophageal reflux disease without esophagitis] 07-20-2020 Chronic Female infertility (2 sources) Female infertility; Translations: [Female infertility, unspecified] Onset: 07-26-2023 07-20-2023 Chronic Fever of unknown origin (2 sources) Fever; Translations: [Fever, unspecified] 06-23-2020 Episodic Comment on above: Fever off and on sin ce delivery 6 weeks prior. Had fever at delivery and received IV abx, mastitis and UTI postdelivery and received Keflex and Azithromycin. Breast abscess and was on Clinda x 10 days. Initial fevers high 103-104, most recent fevers low grade at 100.4-101. Has had a CT scan of abdomen- normal, mild spleen enlargement, pelvic ultrasound- normal, bld culture- negative, breast abscess culture- staph aureus. States body aches are bothering her the most and the fevers. Breast remains tender to the touch and a large hard lump remains present. 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] 06-23-2020 Chronic Immunizations and screening for infectious disease (7 sources) Patient encounter status; Translations: [Encounter for screening for human papillomavirus (HPV)] Episodic Menstrual disorders (1 source) Irregular periods; Translations: [Irregular menstruation, unspecified] 07-20-2023 Chronic Nutritional deficiencies (1 source) Vitamin D deficiency; Translations: [Vitamin D deficiency, unspecified] 01-08-2017 Chronic Other connective tissue disease (4 sources) Muscle weakness; Translations: [Muscle weakness (generalized)] 06-23-2020 Episodic Other connective tissue disease (2 sources) Other symptoms and signs involving the musculoskeletal system; Translations: [Other musculoskeletal symptoms referable to limbs] 07-23-2018 Episodic Other connective tissue disease (2 sources) Pain in right foot; Translations: [Pain in right foot] 06-03-2024 Episodic Other connective tissue disease (1 source) Pain in right foot; Translations: [Foot pain, right] Onset: 06-03-2024 Episodic Other female genital disorders (1 source) Abnormal uterine and vaginal bleeding, unspecified; Translations: [Vaginal spotting] Onset: 10-11-2023 Chronic Other infections; including parasitic (1 source) Increased susceptibility to infections; Translations: [Unspecified infectious disease] 06-29-2014 Episodic Other lower respiratory disease (1 source) Cough; Translations: [Acute cough] Episodic Other lower respiratory disease (1 source) Cough; Translations: [Acute cough] 05-10-2022 Episodic Other nervous system disorders (19 sources) Small fiber neuropathy; Translations: [Polyneuropathy, unspecified] Onset: 03-17-2022 Chronic Other nervous system disorders (19 sources) Central sensitization; Translations: [Other chronic pain] Onset: 03-17-2022 Chronic Other nervous system disorders (2 sources) Hereditary and idiopathic neuropathy, unspecified; Translations: [Hereditary and idiopathic neuropathy, unspecified] Onset: 10-23-2023 Chronic Other nervous system disorders (2 sources) Polyneuropathy, unspecified; Translations: [Polyneuropathy, unspecified] Onset: 10-23-2023 Chronic Other nervous system disorders (4 sources) Paresthesia; Translations: [Paresthesia of skin] 06-23-2020 Episodic Other non-traumatic joint disorders (1 source) Joint pain; Translations: [Pain in unspecified joint] 05-22-2018 Episodic Other nutritional; endocrine; and metabolic disorders (18 sources) Obese class I; Translations: [Obesity, unspecified] Onset: 10-04-2021 10-04-2021 Chronic Other screening for suspected conditions (not mental disorders or infectious disease) (18 sources) Breast finding ; Translations: [Inconclusive mammogram] Onset: 09-28-2021 09-28-2021 Episodic Other upper respiratory infections (2 sources) Sinusitis; Translations: [Chronic sinusitis, unspecified] Chronic Other upper respiratory infections (12 sources) Sore throat symptom; Translations: [Acute pharyngitis, unspecified] Episodic Otitis media and related conditions (2 sources) Eustachian tube disorder; Translations: [Unspecified Eustachian tube disorder, unspecified ear] 05-27-2014 Episodic Ovarian cyst (2 sources) Cyst of ovary; Translations: [Unspecified ovarian cyst, unspecified side] 02-21-2023 Episodic Residual codes; unclassified (1 source) Non-smoker; Translations: [Other specified health status] 06-23-2020 Episodic Skin and subcutaneous tissue infections (2 sources) Furuncle; Translations: [Furuncle, unspecified] 10-24-2019 Episodic Spondylosis; intervertebral disc disorders; other back problems (1 source) Other cervical disc displacement, unspecified cervical region; Translations: [Other cervical disc displacement, unspecified cervical region] Onset: 08-04-2023 Chronic Spondylosis; intervertebral disc disorders; other back problems (2 sources) Chronic pain; Translations: [Cervicalgia] 06-10-2023 Episodic Unclassified (1 source) OPENED IN ERROR Unclassified (1 source) Number of Children 10-24-2019 Comment on above: 0. Unclassified (1 source) Number of Pregnancies 10-24-2019 Comment on above: 0. Unclassified (1 source) Back pain - The onset of the back pain has been gradual and has been occurring in a persistent pattern for 1 month (pt does have chronic back discomfort but discomfort/ pressure has worsened in the last month.). The course has been increasing. The pain is characterized as a dull ache (pressure). The pain is located in the lower back. There are no precipitating factors. The symptoms have no aggravating factors and have no relieving factors. The pain has been associated with paresthesias in leg (radiating into both feet.), while there has been no associated abdominal pain, chills, dysuria, fever or leg weakness. Note for Back pain : pain radiates to BILATERAL lower legs causing her calves to feel full of pressure; also notes tingling/paresthesia, but not numbness; she is also noting a heal pain bilaterally with certain movements that is limiting her activityshe notes family history of lupus (mom) and her brother has an autoimmune condition as well 05-22-2018 Viral infection (3 sources) Viral disease; Translations: [Viral infection, unspecified] Episodic Past or Other Problems Problem Classification Problem Date Documented Date Episodic/Chronic Administrative/social admission (5 sources) Issue of repeat prescriptions; Translations: [Person with feared health complaint in whom no diagnosis is made] Onset: 11-04-2018 Resolved: 09-06-2020 06-29-2014 Episodic Cardiac dysrhythmias (5 sources) Palpitations; Translations: [Palpitations] Onset: 08-10-2015 Resolved: 09-06-2020 07-28-2015 Episodic Heart valve disorders (18 sources) Heart murmur; Translations: [Cardiac murmur, unspecified] Onset: 08-10-2015 08-10-2015 Episodic Malaise and fatigue (20 sources) Malaise and fatigue; Translations: [Other malaise] Onset: 03-17-2022 Episodic Nonmalignant breast conditions (20 sources) Pain of breast; Translations: [Mastodynia] Onset: 11-21-2019 10-04-2021 Episodic Nutritional deficiencies (19 sources) Vitamin E deficiency; Translations: [Deficiency of vitamin E] Onset: 03-17-2022 Episodic Other complications of (18 sources) H/O: miscarriage; Translations: [Supervision of with other poor reproductive or obstetric history, unspecified trimester] Onset: 08-23-2020 08-23-2020 Episodic Other complications of (18 sources) RhD negative; Translations: [Other specified related conditions, unspecified trimester] Onset: 09-21-2020 09-21-2020 Episodic Other connective tissue disease (19 sources) Myofascial pain syndrome; Translations: [Myalgia, other site] Onset: 03-17-2022 Episodic Other connective tissue disease (20 sources) Muscle pain; Translations: [Myalgia, unspecified site] Onset: 02-09-2019 Episodic Other connective tissue disease (18 sources) Aching leg syndrome; Translations: [Pain in leg, unspecified] Onset: 02-09-2019 02-09-2019 Episodic Other connective tissue disease (4 sources) Pain in bilateral legs; Translations: [Pain in right leg] Onset: 11-04-2018 Resolved: 09-06-2020 09-06-2020 Episodic Other nervous system disorders (19 sources) Skin sensation disturbance; Translations: [Unspecified disturbances of skin sensation] Onset: 11-04-2018 Episodic Other and delivery including normal (8 sources) First trimester ; Translations: [Encounter for supervision of normal , unspecified, first trimester] Onset: 02-09-2019 Resolved: 11-13-2019 11-13-2019 Episodic Other skin disorders (4 sources) Disorder of skin; Translations: [Other skin changes] Onset: 02-09-2019 Resolved: 09-06-2020 09-06-2020 Episodic Residual codes; unclassified (18 sources) History of gestational hypertension; Translations: [Personal history of other complications of , childbirth and the puerperium] Onset: 08-23-2020 08-23-2020 Episodic Residual codes; unclassified (18 sources) FH: Congenital heart disease; Translations: [Family history of other congenital malformations, deformations and chromosomal abnormalities] Onset: 08-23-2020 08-23-2020 Episodic Residual codes; unclassified (18 sources) H/O: breast problem; Translations: [Personal history of other complications of , childbirth and the puerperium] Onset: 01-03-2021 01-04-2021 Episodic Unclassified (1 source) Well Adult, female - The patient feels well with minor complaints (paresthesia is worsening). The patient does not exercise. The patient sleeps 5 (has 9 month old baby) hours per night. 06-23-2020 Unclassified (1 source) [ADDITIONAL REASON] Follow up consultation - The patient is here to follow-up after a Neurology consult on : (01/2019). Current symptoms include muscle weakness/parasthesia s. Note for Consultation follow-up : pt saw two different neurologists and both gave diagnosis of small fiber neuropathy. Advised that blood work was inconclusive and to follow up with family doctor in one year for repeat labs. She was seeing neuro and rheumatology at the same time -possible underlying autoimmune disorder, both were inconclusive. 06-23-2020 Unclassified (1 source) Second Opinion - Patient stated that she was 6 weeks post as of today. One week after delivery, patient stated she was in the emergency room with severe mastitis and an abscess that had been drained multiple times by a surgeon. Patient stated that she has had CT scans, bloodwork, and an internal ultrasound to rule out the possibility of a retained placenta. However, there were no profound findings. 10-24-2019 Unclassified (1 source) Well Adult, female - The patient feels well with no complaints, has good energy level and is sleeping well. The first day of the last menstrual period was : (11/2018 patient is 32 weeks ). The patient is not using any method of contraception at this time. The patient has a balanced diet. The patient exercises weekly. The patient sleeps 8 hours per night. 07-28-2019 Unclassified (1 source) Insect Bite/Sting - This occurred 3 day(s) ago. The patient sustained the insect bite/sting to the right arm. Presenting symptoms included redness at the site of the bite/sting. Current symptoms include pain at the site of the bite or sting, redness at the site of the bite or sting and swelling at the site of the bite or sting. Symptoms are located on the right arm. Onset was gradual 1 day(s) after the bite/sting. The patient describes this as moderate in severity. Associated symptoms do not include fever. Note for Insect bite/sting : area located on her right upper /inner bicep red spot with white center, redness surrounding with two red streaks coming off of it - it appears tob e getting better this AM; Patient concerned because she is 21 weeks . 05-15-2019 Unclassified (1 source) Cold Symptoms - Symptoms include nasal congestion, ear fullness, dry cough, general malaise and facial pain, but do not include fever. The onset was gradual 10 day(s) ago. The symptoms occur constantly. The patient describes this as moderate in severity and worsening. Current treatment includes acetaminophen. Risk factors do not include smoking. Note for Upper respiratory infection : -Currently 11 weeks . 02-28-2019 Unclassified (1 source) Several concerns - Pt. has seen neurology most recently in November of this year. After alot of blood work per pt., he noted vitamin E deficiency and pt. is taking a supplement vit E. SHe has been diagnosed with small fiber neuropathy by initial neurologist, but not by 2nd opinion consult. He advised pt. to see primary care for continued muscular pain. Pt. continues with episdoes of painful muscls in both legs. Pt. has also been noted in arms and numbness in face and arms. Pt. also noted bumps under the skin on both lower legs and constant discomfort to bilateral lower legs. Pt. also c/o episodes of lightheadedness. Pt. is frustrated that there has been no diagnosis for worsening symptoms and questions if an head scan could be done to rule out M.S. 12-23-2018 Unclassified (1 source) Well Adult, female - The patient feels well with no complaints, has good energy level and is sleeping well. The first day of the last menstrual period was : (08/01/18). The patient is not using any method of contraception at this time. The patient has a balanced diet and takes no supplemental vitamins & iron. The patient exercises 3 - 4 times per week. The patient sleeps 8 hours per night. 08-29-2018 Unclassified (1 source) [ADDITIONAL REASON] Transition into care - The patient is transitioning into care from another physician (Rheumatology appt. Dr Verde07/29/18Neurolo gy appt - Dr Praikh 08/2018). 08-29-2018 Unclassified (1 source) Form Completion Physicals - The patient feels well with no complaints, has good energy level and is sleeping well. There are no current symptoms. The patient exercises 3 - 4 times per week. The patient has an appropriate balanced diet and sleeps on average 8 hours per night. Safety measures include appropriate use of safety belts. Note for Form completion physical : Pt. has a foster care medical statement to be completed today. 10-25-2017 Unclassified (1 source) left ovarian cyst - Pt. is here today for f/u ct abdomen/pelvis. The ct was done 10/27/16. Pt. has intermittent bloating and nausea, and occasional left abdominal discomfort. Pt. was told that perhaps a follow up u.s could be done to check the status of the cyst. SHe has questions regarding breast finding on abd CT and fatigue as well 12-28-2016 Unclassified (1 source) Lump - The lump is located on the left flank area and is described as being hard feeling. Been present for about 1 year and has remained the same. No redness or discoloration to the skin. Is tender to palpitation. Is having a dull achy pain that is constant of the left flank area. For the past week, she has been having sharp/ dull achy pains of her upper abdomen and will have pain of her right flank area with certain movements. Denies having any constipation, diarrhea, fever, vomiting. Has felt nauseated and bloated. Her LMP was 10/15/2015, regular periods. RUQ pain for last week. 10-27-2016 Unclassified (1 source) Cold Symptoms - Symptoms include nasal congestion, runny nose, ear pain (bilateral), sore throat, hoarseness, productive cough, general malaise (body aches) and headache, but do not include sneezing, dry cough, fever (does have a low grade temp currently 99.4 F), chills or facial pain. The onset was gradual 3 day(s) ago. The symptoms occur constantly. The patient describes this as moderate in severity and worsening. Current treatment includes non-prescription cold medication (generic tylenol cold and flu). Risk factors do not include smoking. The patient has been exposed to an individual with an upper respiratory infection (possibly at workplace around coworkers). Patient denies history of seasonal allergies, recurrent sinusitis, recurrent strep pharyngitis, asthma, tonsillectomy or recurrent ear infections. Note for Upper respiratory infection : Reviewed by JPK. 08-25-2016 Unclassified (1 source) Anxiety - The onset of the anxiety has been variable and has been occurring in an intermittent pattern for years. The course has been recurrent. The anxiety is characterized as apprehension, expectant dread, nervousness and extreme fear. There are no specific phobias. There were no precipitating factors. The symptoms have been associated with palpitations. Note for Anxiety : states that there is a FH of anxiety and family members are stable on fluoxetine - she feesl that much of her symptoms are work stress induced; she feels that her job may need to change 07-18-2016 Unclassified (1 source) Cold Symptoms - Symptoms include sneezing, nasal congestion, dry cough, fever, chills, general malaise and headache, but do not include runny nose, ear pain, sore throat or wheezing. The onset was sudden 12 hour(s) ago. The symptoms occur constantly. The patient describes this as mild and worsening. Current treatment includes acetaminophen and NSAIDs. Risk factors do not include smoking. The patient has been exposed to an individual with similar symptoms. Patient denies history of seasonal allergies, recurrent sinusitis, recurrent strep pharyngitis, asthma, tonsillectomy or recurrent ear infections. Note for Upper respiratory infection : Pt. c/o body aches. and nausea this am. 07-29-2015 Unclassified (1 source) Palpitations - The onset has been gradual. Each episode lasts approximately minutes. The symptoms occur 10 time(s) per day . The symptoms are getting worse. The palpitations are described as fluttering and irregular. Associated features do not include angina, dizziness, faintness, heaviness, jaw pain, nausea or syncope. There are no precipitating factors. There are no aggravating factors. There are no relieving factors. Past medical history includes CVA (paternal grandfather). Note for Palpitations : Pt. has been diagnosed with a heart murmur years ago and was referred to a fishing hand (Boom Dominguez), but no further testing was done and no medication was prescribed. Pt. would like a referral to cardiology, [facility], as symptoms have been increasing. Father also has a heart murmur. 07-28-2015 Unclassified (1 source) Cold Symptoms - Symptoms include nasal congestion, runny nose, non-purulent sputum, ear fullness, sore throat, productive cough, general malaise, headache and facial pain, but do not include sneezing, ear pain, fever or chills. The onset was gradual 3 day(s) ago. The symptoms occur constantly. The patient describes this as moderate in severity and worsening. Current treatment includes NSAIDs. Risk factors do not include smoking. The patient has been exposed to an individual with similar symptoms. Patient denies history of seasonal allergies, recurrent sinusitis, asthma or tonsillectomy. 01-27-2015 Unclassified (1 source) Cold Symptoms - Symptoms include runny nose, non-purulent sputum and sore throat (right), but do not include sneezing, nasal congestion, ear pain (right), fever, chills or headache. The onset was gradual 1 month(s) ago. The symptoms occur intermittently. The patient describes this as moderate in severity and unchanged. The patient is not currently being treated for this problem. Risk factors do not include smoking. The patient has not been exposed to an individual with similar symptoms. Patient denies history of recurrent strep pharyngitis, asthma or tonsillectomy. Note for Upper respiratory infection : Pt c/o sores on tongue, which is how symptms started. 10-28-2014 Unclassified (1 source) Cold Symptoms - Symptoms include nasal congestion, runny nose, purulent discharge, ear fullness, scratchy throat, dry cough and general malaise, but do not include fever or chills. The onset was gradual 2 week(s) ago. The symptoms occur constantly. The patient describes this as moderate in severity and unchanged. Current treatment includes antibiotics and NSAIDs. Risk factors do not include smoking. The patient has not been exposed to an individual with similar symptoms. Medical history includes recurrent sinusitis, but patient denies history of seasonal allergies, recurrent strep pharyngitis, asthma, tonsillectomy or recurrent ear infections. Note for Upper respiratory infection : has had open sores on lips x 2 days. Pt c/o getting sick monthly x 1 year. - would like testing to make sure that all is ok with her.... 06-29-2014 Unclassified (1 source) Cold Symptoms - Symptoms include sore throat, fever, chills and general malaise, but do not include sneezing, nasal congestion, runny nose, ear pain, dry cough or productive cough. The onset was sudden 2 day(s) ago (she started not feeling well on Sunday and sore throat started on Sunday evening). The symptoms occur constantly. The patient describes this as severe and worsening. The patient is not currently being treated for this problem. Risk factors do not include smoking. 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 Patient denies history of recurrent strep pharyngitis. 06-16-2014 Unclassified (1 source) Cold Symptoms - Symptoms include nasal congestion, runny nose, ear pain (bilateral, worse in the left) and ear fullness, but do not include sore throat, dry cough or fever. The onset was gradual 1 week(s) ago. The symptoms occur frequently. The patient describes this as moderate in severity and worsening. Current treatment includes NSAIDs. Risk factors do not include smoking. The patient has been exposed to an individual with an upper respiratory infection. Patient denies history of seasonal allergies, recurrent sinusitis, recurrent strep pharyngitis, asthma, tonsillectomy or recurrent ear infections. Note for Upper respiratory infection : she had cold symptoms all last week, those symptoms have subsided but ear pain remains. 05-27-2014 Unclassified (1 source) Cold Symptoms - Symptoms include nasal congestion, runny nose (drainage is clear), ear pain, sore throat, dry cough and chills, but do not include fever. The onset was 1 week(s) ago. The patient describes this as worsening. Current treatment includes non-prescription cold medication (advil cold and sinus x 2 days). Risk factors do not include smoking. The patient has not been exposed to an individual with similar symptoms. Note for Upper respiratory infection : Had similar symptoms all October - was given levaquin and had improvement x 2-3 weeks before symptoms started again. 11-14-2013 Unclassified (1 source) Cold Symptoms - Symptoms include nasal congestion, runny nose, purulent discharge, ear pain (left), sore throat, scratchy throat, hoarseness, dry cough, productive cough, chills, general malaise, headache and facial pain, but do not include sneezing or fever. The onset was gradual 3 week(s) ago. The symptoms occur intermittently. The patient describes this as moderate in severity and worsening. Current treatment includes non-prescription cold medication and acetaminophen. Risk factors do not include smoking. The patient has been exposed to an individual with an upper respiratory infection and an individual with similar symptoms. Patient denies history of seasonal allergies, recurrent sinusitis, recurrent strep pharyngitis, asthma, tonsillectomy or recurrent ear infections. 10-13-2013 Unclassified (1 source) UTI - Symptoms include dysuria, urinary frequency, urinary urgency and hematuria, but do not include abdominal pain or back pain. There is no assiciated pain. The patient describes the pain as burning. Onset was sudden (though she feels that she never fully resolved after last treatment) 1 day(s) ago. Onset followed sexual intercourse. The symptoms occur constantly. The patient describes this as severe and worsening. Associated symptoms do not include fever. Note for UTI : pt just got two weeks ago, had a UTI within 3 days and was in the ER and treated with Macrodantin. 03-04-2013 Results Test Name Value Interpretation Reference Range Facility Bacteria identified Cx Nom ( U)Ordered By: Faye Santana on 06-07-2024 Interpretation and review of laboratory results Normal [facility] - Chemistry and C hemistry - challengeon 06-07-2024 Glucose [Mass/Vol] 125 mg/dL High 70 - 100 mg/dL [facility] - Microbiology an d Antimicrobial susceptibilityOrdered By: Faye Santana on 06-07-2024 Bacteria identified Cx Nom (U) Normal urogenital rosy present [facility] No Panel Informationon 06-07 Interpretation and review of laboratory results Abnormal [facility] Performed by: [facility], [address] [place] [address], [place] [address] CLIA ID: [id number] [facility] Progress Noteon 06-07-2024 Progress Note ------ -- Attestation signed by Lucinda Bar MD at 06/07/2024 11:02 AM MFM ATTENDING I have personally obtained a history and examined the patient with Dr. Syed. I agree with the assessment and plan as documented in the resident's note. The patient is a 33 y.o. 33w5d now HD#2, admitted for PTL Pertinent Background: [place] Di twin with normal growth and no complications. Presented via car to [facility] from [place] secondary to CTXs and PTL with cervix 2cm. She was given BMZ and Procardia tocolysis and contractions resolved shortly after arrival yesterday morning. Today she reports she is very comfortable and slept well overnight. No contractions. No LOF, No VB. She reports good movement. Vitals: 06/07/24 0913 BP: 116/74 Pulse: 82 Resp: 18 Temp: 36.7 ?C (98.1 ?F) SpO2: 98% Alert and oriented, NAD Gravid nontender abdomen Current Monitoring Plan: TID NST Ultrasound: 06/06: A: cephalic, 2081g (37%), B: Breech, 2057g (36%) Normal followup anatomy, fluids. BPP 8/8 x 2. Plan: S/p BMZ as of approx 10pm last night. Patient strongly desires discharge tonight. She will finish Procardia tocolysis this afternoon at 6pm and if stable can be discharged home. Delivery will be planned at [place]. 25 minutes spent in total floor time today for review of records, patient interview and exam, documentation and coordination of care with care teams. Lucinda Bar MD -- Maternal Medicine Service Resident Progress Note 06/07/2024 5:52 AM 06/06/2024 Hospital Day: 2 Willis Gautam, 33 y.o. 33w5d Patient has been seen and examined. Pt is doing well this AM. Denies ongoing contractions or pelvic pressure. Feeling good movement. Positive movement Negative vaginal bleeding Negative LOF Negative Contractions Vitals: 06/06/24 1300 06/06/24 1508 06/06/24 2041 06/07/24 0004 BP: 121/68 118/68 116/63 Pulse: 112 78 79 87 Resp: 16 16 14 Temp: 36.7 ?C (98.1 ?F) 36.7 ?C (98 ?F) 36.4 ?C (97.5 ?F) TempSrc: Temporal Temporal Temporal SpO2: 97% 98% 97% Weight: Height: FHT: - Baby A 130s moderate variability - Baby B 120s, moderate variability Accels: present Decels: absent Contractions: intermittent, irregular Physical Exam: Gen: NAD HEENT: Normocephalic, Atraumatic, EOMI, MMM Resp: equal chest rise bilaterally Abd: soft, gravid, NTND, no rebound, no guarding. Negative fundal tenderness Ext: No LE edema, no calf tenderness or swelling Medications: Current Facility-Administered Medications Medication Dose Route Frequency Provider Last Rate Last Admin acetaminophen (Tylenol) tablet 650 mg 650 mg Oral q6h PRN Pratima Alberto DO 650 mg at 06/07/24 0009 Or acetaminophen (Tylenol) suppository 650 mg 650 mg Rectal q6h PRN Pratima Schlieper, DO chlorhexidine (Hibiclens) 4 % solution 1 Application 1 Application Topical Daily Pratima Schlieper, DO docusate sodium (Colace) capsule 100 mg 100 mg Oral BID Pratima Schlieper, DO famotidine (Pepcid) 20 mg in sodium chloride (PF) 0.9 % 10 mL injection 20 mg IntraVENous BID Tanya Syed, DO 20 mg at 06/06/242042 Or famotidine (Pepcid) tablet 20 mg 20 mg Oral BID Tanya Syed, DO lactated ringers infusion 125 mL/hr IntraVENous Continuous Pratima Schlieper, DO Stopped at 06/06/24 163 NIFEdipine (Procardia) capsule 20 mg 20 mg Oral 4 times per day Tanya Syed DO 20 mg at 06/07/24 0005 ondansetron ODT (Zofran-ODT) disintegrating tablet 4 mg 4 mg Oral q8h PRN Pratima Schlieper, DO Or ondansetron (Zofran) injection 4 mg 4 mg IntraVENous q6h PRN Pratima Schlieper, DO vitamin tablet 1 tablet Oral Daily Pratima Schlieper, DO Assessment/Plan: Willis Gautam is a 33 y.o. female 33w5d Labor - Presented to OSH for contractions, received 1 dose BMZ and transferred here - On presentation, patient overall comfortable appearing - VTX (A)/Breech (B) on US 06/06 - SVE 2/50/-3 - Contractions q 5-6 on presentation - Plan to admit for steroids, Procardia tocolysis, and GBS prophylaxis [place] Tw[place] - Last growth 05/12/24: Twin A EFW 1654g 63%, AC 60%, Twin B EFW 1739g 69%, AC 80%, ALPHONSO wnl. MCA doppler wnl. Bladders and stomachs visualized for both - S/P MFM consult, following - Amniotic fluid and bladder assessment every 2 weeks. - growth assessment every 4 weeks. - Follow up anatomy survey in 2 weeks. - Initiate MCA Doppler at 20 weeks and continue every two weeks. - echocardiogram around 22 weeks gestation, ordered with pediatric cardiology. - testing weekly starting at 32 weeks (or sooner if indicated). - Delivery at 37 weeks (or sooner if indicated). - Low risk NIPT - Repeat gr (more content not included)... Normal [facility] S. agalactiae DNA SONA+probe Ql (Unsp spec)on 06-07-2024 Group B Strep Screen Not detected Not Detected [facility] Interpretation and review of laboratory results Normal [facility] Methodology: real-time PCR [facility] A variant subtype Ab Qlon [facility] ABO and Rh group Confirm Nom (Bld)on 06-06-2024 ABO group Nom (Bld) O [facility] D Ag Ql (RBC) Negative [facility] ANTIBODY IDENTIFICATIONon ANTIBODY IDENTIFICATION DPASSIVE Normal S [facility] Comment on above: Performed By: #### L [id number], [id number] ####Family And Consumer Science Professor: MODESTA KAMARA ([id number])[facility] ([facility])[address] [place] [address] BLOOD TYPE AND SCREEN GELon 06-06-2024 ABO GROUPING O Normal [facility] Comment on above: Performed By: #### L [id number], [id number] ####Family And Consumer Science Professor: MODESTA KAMARA ([id number])[facility] ([facility])[address] [place] [address] RH TYPE IN BLOOD Negative Normal [facility] Comment on above: Performed By: #### L [id number], [id number] ####Family And Consumer Science Professor: MODESTA KAMARA ([id number])[facility] ([facility])[address] [place] [address] Blood type and Crossmatch pa santiago (Bld)on 06-06-2024 ABO group Nom (Bld) O [facility] [facility] Blood group antibody screen GEL Ql Positive [facility] D Ag Ql (RBC) Negative [facility] CBC (HEMOGRAM)on 06-06-2024 Erythrocyte distribution width (RBC) [Ratio] 14.2 % Normal 11.5-15.0 [facility] Comment on above: Performed By: #### L [id number] ####Family And Consumer Science Professor: MODESTA KAMARA ([phone])[facility] ([facility])[address] [place] [address] Hematocrit (Bld) [Volume fraction] 34.2 % Low 35.0-47.0 [facility] Comment on above: Performed By: #### L [id number] ####Family And Consumer Science Professor: MODESTA KAMARA ([phone])[facility])[address] [place] [address] Hemoglobin (Bld) [Mass/Vol] 11.0 g/dL Low 11.7-16.0 [facility] Comment on above: Performed By: #### L [id number] ####Family And Consumer Science Professor: MODESTA KAMARA ([id number])[facility])[address] [place] [address] MCH (RBC) [Entitic mass] 29.3 pg Normal 26.0-34.0 [facility] Comment on above: Performed By: #### L [id number] ####Family And Consumer Science Professor: MODESTA KAMARA ([phone])[facility] ([facility])[address] [place] [address] MCHC 32.2 % Normal 30.5-36.0 [facility] Comment on above: Performed By: #### L [id number] ####Family And Consumer Science Professor: MODESTA KAMARA ([phone])[facility] ([facility])[address] [place] [address] MCV (RBC) [Entitic vol] 91.0 fL Normal 77.0-99.0 [facility] Comment on above: Performed By: #### L [id number] ####Family And Consumer Science Professor: MODESTA KAMARA ([phone])[facility] ([facility])[address] [place] [address] Platelet mean volume (Bld) [Entitic vol] 11.4 fL Normal 9.0-12.7 [facility] Comment on above: Performed By: #### L [id number] ####Family And Consumer Science Professor: MODESTA KAMARA ([phone])[facility] ([facility])[address] [place] [address] Platelets (Bld) [#/Vol] 180 10*3/uL Normal 140-440 [facility] Comment on above: Performed By: #### L [id number] ####Family And Consumer Science Professor: MODESTA KAMARA ([id number])[facility])[address] [place] [address] RBC (Bld) [#/Vol] 3.76 10*6/uL Low 3.80-5.20 [facility] Comment on above: Performed By: #### L [id number] ####Family And Consumer Science Professor: MODESTA KAMARA ([id number])[facility])[address] [place] [address] WBC (Bld) [#/Vol] 6.6 10*3/uL Normal 3.6-10.7 [facility] Comment on above: Performed By: #### L [id number] ####Family And Consumer Science Professor: MODESTA KAMARA ([phone])[facility] ([facility])[address] [place] [address] CBC panel Auto (Bld)on 06-06 Erythrocyte distribution width (RBC) [Ratio] 14.2 % 11.5 - 15.0 % [facility] Hematocrit (Bld) [Volume fraction] 34.2 % Low 35.0 - 47.0 % [facility] Hemoglobin (Bld) [Mass/Vol] 11.0 g/dL Low 11.7 - 16.0 g/dL [facility] Interpretation and review of laboratory results Abnormal [facility] MCH (RBC) [Entitic mass] 29.3 pg 26.0 - 34.0 pg [facility] MCHC (RBC) [Mass/Vol] 32.2 % 30.5 - 36.0 % [facility] MCV (RBC) [Entitic vol] 91.0 fL 77.0 - 99.0 fL [facility] Platelet mean volume (Bld) [Entitic vol] 11.4 fL 9.0 - 12.7 fL [facility] Platelets (Bld) [#/Vol] 180 10*3/uL 140 - 440 10*3/uL [facility] RBC (Bld) [#/Vol] 3.76 10*6/uL Low 3.80 - 5.20 10*6/uL [facility] WBC (Bld) [#/Vol] 6.6 10*3/uL 3.6 - 10.7 10*3/uL [facility] CHLAMYDIA/GONORRHEAon 2023 CHLAMYDIA/GONORRHEA NEISSERIA GONORRHOEA E DNA PROBE Reference Not Detected Not Detected CHLAMYDIA TRACHOMATIS DNA PROBE Reference Not Detected Not Detected ORDER COMMENTS: Methodology: real-time PCR This test is intended for medical purposes only and is not intended for the evaluation of suspected sexual abuse or for other forensic purposes. In certain contexts, culture may be required to meet applicable laws and regulations for diagnosis of C. trachomatis and N. gonorrhoeae infections. Per 2014 CDC recommmendations, this test does not include confirmation of positive results by an alternative nucleic acid target. A negative result does not exclude the possibility of infection. A result of invalid indicates that a new specimen should be collected if clinically indicated. Normal [facility] Comment on above: Performed By: #### L [id number], [id number] #### Family And Consumer Science Professor: MODESTA KAMARA ([phone]) [address] COMPREHENSIVE METABOLIC PANE Lucio 06-06-2024 Albumin [Mass/Vol] 3.7 g/dL Normal 3.5-5.0 [facility] Comment on above: Performed By: #### L [id number] ####Family And Consumer Science Professor: MODESTA KAMARA ([phone])[facility])[address] [place] [address] ALP [Catalytic activity/Vol] 112 U/L Normal 38-126 [facility] Comment on above: Performed By: #### L [id number] ####Family And Consumer Science Professor: MODESTA KAMARA ([id number])[facility])[address] [place] [address] ALT [Catalytic activity/Vol] 16 U/L Normal 0-34 [facility] Comment on above: Performed By: #### L [id number] ####Family And Consumer Science Professor: MODESTA KAMARA ([id number])[facility])[address] [place] [address] Anion gap [Moles/Vol] 9 mmol/L Normal 3-13 [facility] Comment on above: Performed By: #### L [id number] ####Family And Consumer Science Professor: MODESTA KAMARA ([phone])[facility])[address] [place] [address] AST [Catalytic activity/Vol] 27 U/L Normal 15-46 [facility] Comment on above: Performed By: #### L [id number] ####Family And Consumer Science Professor: MODESTA KAMARA ([phone])[facility] ([facility])[address] [place] [address] Bilirubin [Mass/Vol] 0.4 mg/dL Normal 0.2-1.3 [facility] Comment on above: Performed By: #### L [id number] ####Family And Consumer Science Professor: MODESTA KAMARA ([id number])[facility] ([facility])[address] [place] [address] Calcium [Mass/Vol] 9.2 mg/dL Normal 8.4-10.4 [facility] Comment on above: Performed By: #### L [id number] ####Family And Consumer Science Professor: MODESTA KAMARA ([phone])[facility] ([facility])[address] [place] [address] Chloride [Moles/Vol] 111 mmol/L High 98-107 [facility] Comment on above: Performed By: #### L [id number] ####Family And Consumer Science Professor: MODESTA KAMARA ([id number])[facility] ([facility])[address] [place] [address] [place] CO2 [Moles/Vol] 16 mmol/L Low 22-30 [facility] Comment on above: Performed By: #### L [id number] ####Family And Consumer Science Professor: MODESTA KAMARA ([id number])[facility] ([facility])[address] [place] [address] [place] Creatinine [Mass/Vol] 0.50 mg/dL Low 0.52-1.04 [facility] Comment on above: Performed By: #### L [id number] ####Family And Consumer Science Professor: MODESTA KAMARA ([id number])[facility] [address] GLOMERULAR FILTRATION RATE ML/MIN/1.73 SQ M.PREDICTED >90.0 Normal >60.0 [facility] Comment on above: Result Comment: Calc ulation based on the Chronic Kidney Disease Epidemiology Collaboration (CKD-EPI) equation refit without adjustment for race Performed By: #### L [id number] ####Family And Consumer Science Professor: MODESTA KAMARA ([id number])[facility])[address] [place] [address] Glucose [Mass/Vol] 106 mg/dL High 70-100 [facility] Comment on above: Performed By: #### L [id number] ####Family And Consumer Science Professor: MODESTA KAMARA ([phone])[facility])[address] [place] [address] Potassium [Moles/Vol] 4.1 mmol/L Normal 3.5-5.1 [facility] Comment on above: Performed By: #### L [id number] ####Family And Consumer Science Professor: MODESTA KAMARA ([id number])[facility])[address] [place] [address] Protein [Mass/Vol] 6.8 g/dL Normal 6.3-8.2 [facility] Comment on above: Performed By: #### L [id number] ####Family And Consumer Science Professor: MODESTA KAMARA ([phone])[facility])[address] [place] [address] Sodium [Moles/Vol] 136 mmol/L Normal 135-145 [facility] Comment on above: Performed By: #### L AB17 ####Family And Consumer Science Professor: MODESTA KAMARA ([phone])[facility])[address] [place] [address] Urea nitrogen [Mass/Vol] 7 mg/dL Normal 7-17 [facility] Comment on above: Performed By: #### L AB17 ####Family And Consumer Science Professor: MODESTA KAMARA ([phone])[facility])[address] [place] [address] Comprehensive metabolic 1998 panelon 06-06-2024 Albumin [Mass/Vol] 3.7 g/dL 3.5 - 5.0 g/dL [facility] ALP [Catalytic activity/Vol] 112 U/L 38 - 126 U/L [facility] ALT [Catalytic activity/Vol] 16 U/L 0 - 34 U/L [facility] Anion gap [Moles/Vol] 9 mmol/L 3 - 13 mmol/L [facility] AST [Catalytic activity/Vol] 27 U/L 15 - 46 U/L [facility] Bilirubin [Mass/Vol] 0.4 mg/dL 0.2 - 1 .3 mg/dL [facility] Calcium [Mass/Vol] 9.2 mg/dL 8.4 - 10. 4 mg/dL [facility] Chloride [Moles/Vol] 111 mmol/L High 98 - 10 7 mmol/L [facility] CO2 [Moles/Vol] 16 mmol/L Low 22 - 30 mmol/L [facility] Creatinine [Mass/Vol] 0.50 mg/dL Low 0.52 - 1.04 mg/dL [facility] GFR/1.73 sq M.predicted (S/P/Bld) [Vol rate/Area] - PINF [facility] Comment on above: Calculation based on the Chronic Kidney Disease Epidemiology Collaboration (CKD-EPI) equation refit without adjustment for race Glucose [Mass/Vol] 106 mg/dL High 70 - 100 mg/dL [facility] Interpretation and review of laboratory results Abnormal [facility] Potassium [Moles/Vol] 4.1 mmol/L 3.5 - 5.1 mmol/L [facility] Protein [Mass/Vol] 6.8 g/dL 6.3 - 8.2 g/dL [facility] Sodium [Moles/Vol] 136 mmol/L 135 - 145 mmol/L [facility] Urea nitrogen [Mass/Vol] 7 mg/dL 7 - 17 mg/dL [facility] Consulton 06-06-2024 Consult Consult by Neonatology Request by OB: Dr. Bar Reason for Consult: Prematurity [place]-Di twins Maternal History and current problem: The patient is a 33 y.o. 33w4d admitted overnight for labor. Has mono/di twin that was otherwise uncomplicated. On admission was 2cm dilated. Received BMZ, procardia tocolysis. Significant history: [place]- Di twins, contractions, heart murmur (Hx of Palpitation - Previously evaluated by Cardiology - S/P Holter monitor, unremarkable - Patient current asymptomatic), obesity, Rh incompatibility Medications: Pepcid, Fe, Mag-Ox, PNV FA Betamethasone given: yes 06/05/24 & 06/06/24 scheduled Labs: Blood type: O+ Antibody: Neg GBS: unknown Hepatitis B Ag: negative RPR: negative Rubella: immune HIV: negative Hepatitis C: negative GC/CT: neg/neg Failed 1 hr normal 3hr glucose test Trichomonas: neg HSV history: none Present for Consult: Willis Baby Sex: male/ male Baby Name: undecided US findings: dated by 1st trimester US 05/12/24: Growth US: Twin A EFW 1654g 63%, AC 60% Twin B EFW 1739g 69%, AC 80% ALPHONSO wnl. MCA doppler wnl. Bladders and stomachs visualized for both. Any known anomalies: no Low risk NIPT Can deliver in [place] at 34 weeks, confirmed with Dr. Hart per OB I discussed: Survival statistics Delivery room management: Delayed cord clamping, possible need for CPAP, Oxygen, intubation and surfactant. IV access, possible need for advanced resuscitation, p. Baby is a full resuscitation. Respiratory distress syndrome Feeding with NG tube and benefit of MBM. Mom plans on providing MBM. Fortification of MBM. Feeding readiness and growth expectations, Jaundice and phototherapy Apnea of prematurity Risk of infection- early and late onset Skin to skin opportunities Physiologic criteria for discharge and timing of discharge estimate from NICU Potential need for transfer to [facility]'s NICU if needs esclation of care, based on a variety of factors. Handouts given. No further questions. 1. Current Management per OB 2. NICU to attend delivery 3. Call NICU if further questions. Normal [facility] Consult Pharmacy Managed Vancomycin Dosing Service Consult Note Consult Date: 06/06/24 Patient Name: Willis Gautam Allergies: Pcn [penicillins] Age: 33 y.o. Sex: female There is no height or weight on file to calculate BMI. DW: 108.5 kg No results found for: CREATININE , BUN , WBC , CRCLEARANCE Calculated CrCl: none mL/min (Cockcroft-Gault) Consulted By: Pratima Alberto Infectious Diagnosis: GBS prophylaxis Random Vancomycin Level Due: 06/07/24 at 0430 Assessment/Plan: Doses, serum creatinine, and vancomycin levels interfaced automatically to [employer] and data has been analyzed and interpreted. Start Vancomycin 2000 mg every 8 hours based on patient age, weight, renal function, and infectious diagnosis (20 mg/kg). Will assess random level on 06/07/24 and adjust as appropriate. Trend serum creatinine. Orders placed. Thank you for this consult. Please secure text or call with questions. DATE: 06/06/24 TIME: 4:54 AM Evelia Chin, PharmD Clinical Pharmacist Available via Secure Chat [facility] GROUP B STREP SCREEN BY PCRo n 06-06-2024 GROUP B STREP SCREEN BY PCR GROUP B STREP SCREEN BY PCR Reference Not Detected Not Detected ORDER COMMENTS: Methodology: real-time PCR [facility] Comment on above: Performed By: #### L [id number] ####Family And Consumer Science Professor: MODESTA KAMARA ([phone])[address] Laboratory - Blood bankon A variant subtype Ab Ql DPASSIVE S [facility] Laboratory - Chemistry and C hemistry - challengeon 06-06-2024 Glucose [Mass/Vol] 135 mg/dL High 70 - 100 mg/dL [facility] Glucose [Mass/Vol] 144 mg/dL High 70 - 100 mg/dL [facility] N. gonorrhoeae DNA SONA+probe Ql (Cervical mucus)on 06-06-2024 C. trachomatis DNA SONA+probe Ql (Unsp spec) Not detected Not Detected [facility] Interpretation and review of laboratory results Normal [facility] N gonorrhoeae, DNA Probe Not detected Not Detected [facility] Methodology: real-ti me PCR This test is intended for medical purposes only and is not intended for the evaluation of suspected sexual abuse or for other forensic purposes. In certain contexts, culture may be required to meet applicable laws and regulations for diagnosis of C. trachomatis and N. gonorrhoeae infections. Per 2014 CDC recommmendations, this test does not include confirmation of positive results by an alternative nucleic acid target. A negative result does not exclude the possibility of infection. A result of invalid indicates that a new specimen should be collected if clinically indicated. [facility] No Panel Informationon 06-06 Interpretation and review of laboratory results [employer] Performed by: [facility], [address] [place] [id number] CLIA ID: [id number] [facility] Interpretation and review of laboratory results [employer] Performed by: [facility], [address] [place] [id number] CLIA ID: [id number] [facility] 1. Monochorionic diamniotic twin at 33 3/4 weeks in cephalic/Breech presentation 2.Normal concordant growth for both twins: A: EFW 2081g (37%), B: EFW 2057g (36%) 3. Normal DVPs for each twin: 4.9cm and 4.2cm 4. Bladders present for each twin. 5. Biophysical profiles 05/08 for each twin. 6. No evidence of TTTS. [facility] OBSTETRICS REPORT (Signed Final 06/06/2024 12:42 pm) PATIENT INFO: ID #: [id number] : [birth year] (33 yrs)(F) Name: WILLIS GAUTAM Visit Date: 06/06/2024 10:20 am PERFORMED BY: Attending: Lucinda Bar Performed By: Shani Hines RDMS Referred By: IMAN NARAYANAN Location: [facility] IP Visit Type: Inpatient - Hospital SERVICE(S) PROVIDED: [place] [address] [place] [address] BPP w/out NST 95090 BPP w/out NST 70068 INDICATIONS: Twin , monochorionic/diamniotic, O30.033 third trimester False labor before 37 completed weeks of O47.00 gestation, unspecified trimester Twin , monochorionic/diamniotic, O30.033 third trimester False labor before 37 completed weeks of O47.00 gestation, unspecified trimester Twin , monochorionic/diamniotic, O30.033 third trimester Twin , monochorionic/diamniotic, O30.033 third trimester False labor before 37 completed weeks of O47.00 gestation, unspecified trimester VITAL SIGNS: Weight (lb): 230 Height: 5'8 BMI: 34.97 EVALUATION (FETUS A): Num Of Fetuses: 2 Heart Rate(bpm): 123 Cardiac Activity: Regular rhythm Lie: Maternal RT Presentation: Cephalic Placenta: Anterior Membrane Desc: Monochorionic - diamniotic Amniotic Fluid ALPHONSO FV: Within normal limits Largest Pocket(cm) 4.9 BIOPHYSICAL EVALUATION (FETUS A): Amniotic F.V: Within normal limits F. Tone: Observed F. Movement: Observed Score: 8/ F. Breathing: Observed BIOMETRY (FETUS A): BPD: 87.2 mm G.Age: 35w 1d 87 % OFD: 109.8 mm HC: 315.4 mm G.Age: 35w 3d 61 % AC: 280.9 mm G.Age: 32w 1d 15 % FL: 63.5 mm G.Age: 32w 6d 21 % LV: 6.39 mm CI: 79.4 % 70 - 86 FL/HC: 20.1 % 19.4 - 21.8 HC/AC: 1.12 0.96 - 1.11 FL/BPD: 72.8 % 71 - 87 FL/AC: 22.6 % 20 - 24 Est. FW: 2081 gm 4 lb 9 oz 37 % FW Discordancy: 0 \ 1 % GESTATIONAL AGE (FETUS A): Clinical AMANDA: 33w 4d AMANDA: 07/21/24 U/S Today: 33w 6d AMANDA: 07/19/24 Best: 33w 4d Det. By: Clinical AMANDA AMANDA: 07/21/24 ANATOMY (FETUS A): Cranium: Normal appearance Ventricles: Normal appearance Face: Normal appearance Lips: Normal appearance Thoracic: Normal appearance Heart: Normal appearance RVOT: Normal appearance LVOT: Normal appearance Aortic Arch: Normal appearance Ductal Arch: Normal appearance Diaphragm: Normal appearance Stomach: Normal appearance Abdomen: Normal appearance Abdominal Wall: Normal appearance Cord Vessels: 3-Vessel Cord Kidneys: Normal appearance Bladder: Normal appearance Upper Extremities: Present Lower Extremities: Present EVALUATION (FETUS B): Num Of Fetuses: 2 Heart Rate(bpm): 127 Cardiac Activity: Regular rhythm Lie: Maternal LT Presentation: Breech Placenta: Anterior Membrane Desc: Monochorionic - diamniotic Amniotic Fluid ALPHONSO FV: Within normal limits Largest Pocket(cm) 4.2 (more content not included)... [facility] Lucinda Bar MD - 06/06/2024 OBSTETRICS REPORT (Signed Final 06/06/2024 12:42 pm) PATIENT INFO: ID #: [id number] : [birth year] (33 yrs)(F) Name: WILLIS GAUTAM Visit Date: 06/06/2024 10:20 am PERFORMED BY: Attending: Lucinda Bar Performed By: Shani Hines [facility] Referred By: IMAN NARAYANAN Location: [facility] IP Visit Type: Inpatient - Hospital SERVICE(S) [place]: [place] [address] [place] [address] BPP w/out NST 19712 BPP w/out NST 97977 INDICATIONS: Twin , monochorionic/diamniotic, O30.033 third trimester False labor before 37 completed weeks of O47.00 gestation, unspecified trimester Twin , monochorionic/diamniotic, O30.033 third trimester False labor before 37 completed weeks of O47.00 gestation, unspecified trimester Twin , monochorionic/diamniotic, O30.033 third trimester Twin , monochorionic/diamniotic, O30.033 third trimester False labor before 37 completed weeks of O47.00 gestation, unspecified trimester VITAL SIGNS: Weight (lb): 230 Height: 5'8 BMI: 34.97 EVALUATION (FETUS A): Num Of Fetuses: 2 Heart Rate(bpm): 123 Cardiac Activity: Regular rhythm Lie: Maternal RT Presentation: Cephalic Placenta: Anterior Membrane Desc: Monochorionic - diamniotic Amniotic Fluid ALPHONSO FV: Within normal limits Largest Pocket(cm) 4.9 BIOPHYSICAL EVALUATION (FETUS A): Amniotic F.V: Within normal limits F. Tone: Observed F. Movement: Observed Score: 8/8 F. Breathing: Observed BIOMETRY (FETUS A): BPD: 87.2 mm G.Age: 35w 1d 87 % OFD: 109.8 mm HC: 315.4 mm G.Age: 35w 3d 61 % AC: 280.9 mm G.Age: 32w 1d 15 % FL: 63.5 mm G.Age: 32w 6d 21 % LV: 6.39 mm CI: 79.4 % 70 - 86 FL/HC: 20.1 % 19.4 - 21.8 HC/AC: 1.12 0.96 - 1.11 FL/BPD: 72.8 % 71 - 87 FL/AC: 22.6 % - 24 Est. FW: 2080 gm 4 lb 9 oz 37 % FW Discordancy: 0 \ 1 % GESTATIONAL AGE (FETUS A): Clinical AMANDA: 33w 4d AMANDA: 07/21/24 U/S Today: 33w 6d AMANDA: 07/19/24 Best: 33w 4d Det. By: Clinical AMANDA AMANDA: 07/21/24 ANATOMY (FETUS A): Cranium: Normal appearance Ventricles: Normal appearance Face: Normal appearance Lips: Normal appearance Thoracic: Normal appearance Heart: Normal appearance RVOT: Normal appearance LVOT: Normal appearance Aortic Arch: Normal appearance Ductal Arch: Normal appearance Diaphragm: Normal appearance Stomach: Normal appearance Abdomen: Normal appearance Abdominal Wall: Normal appearance Cord Vessels: 3-Vessel Cord Kidneys: Normal appearance Bladder: Normal appearance Upper Extremities: Present Lower Extremities: Present EVALUATION (FETUS B): Num Of Fetuses: 2 Heart Rate(bpm): 127 Cardiac Activity: Regular rhythm Lie: Maternal LT Presentation: Breech Placenta: Anterior Membrane Desc: Monochorionic - diamniotic Amniotic Fluid ALPHONSO FV: Within normal limits Largest Pocket(cm) 4.2 BIOPHYSICAL EVALUATION (FETUS B): Amniotic F.V: Within normal limits F. Tone: Observed F. Movement: Observed Score: 05/08 F. Breathing: Observed BIOMETRY (FETUS B): BPD: 86.6 mm G.Age: 35w 0d 83 % OFD: 104.1 mm HC: 303.8 mm G.Age: 33w 5d 19 % AC: 281.5 mm G.Age: 32w 1d 16 % FL: 63.8 mm G.Age: 33w 0d 24 % CI: 83.2 % 70 - 86 FL/HC: 21.0 % 19.4 - 21.8 HC/AC: 1.08 0.96 - 1.11 FL/BPD: 73.7 % 71 - 87 FL/AC: 22.7 % 20 - 24 Est. FW: 2057 gm 4 lb 9 oz 36 % FW Discordancy: 1 % GESTATIONAL AGE (FETUS B): Clinical AMANDA: 33w 4d AMANDA: 07/21/24 U/S Today: 33w 3d AMANDA: 07/22/24 Best: 33w 4d Det. By: Clinical AMANDA AMANDA: 07/21/24 ANATOMY (FETUS B): Cranium: Normal appearance Face: Normal appearance Lips: Normal appearance Thora (more content not included)... [facility] Radiology Study observation (narrative) [facility] No Panel InformationOrdered By: Lucinda Bar on 06-06-2024 [facility] Work Phone: Progress Noteon 06-06-2024 Progress Note Vancomycin therapy h as been discontinued by Dr Syed on 06/06/24. Thank you for the consult. Pharmacy signing off for vancomycin dosing. Sukhi Raymond, PharmD Date: 06/06/24 Time: 5:16 PM Normal [facility] T. vaginalis DNA SONA+probe Q l (Genital specimen)on 06-06-2024 Interpretation and review of laboratory results Normal [facility] Trichomonas vaginalis Not detected Not Detected [facility] Methodology: real-ti me PCR A negative result does not completely rule out infection with T. vaginalis. Results should be interpreted in conjunction with other clinical data. This test has not been validated for use with self-collected vaginal swab specimens from patients. This test is intended for medical purposes only and is not intended for the evaluation of suspected sexual abuse or for other forensic purposes. [facility] TRICHOMONAS VAGINALIS PCRon 06-06-2024 TRICHOMONAS VAGINALIS PCR TRICHOMONAS VAGINALIS PCR Reference Not Detected Not Detected ORDER COMMENTS: Methodology: real-time PCR A negative result does not completely rule out infection with T. vaginalis. Results should be interpreted in conjunction with other clinical data. This test has not been validated for use with self-collected vaginal swab specimens from patients. This test is intended for medical purposes only and is not intended for the evaluation of suspected sexual abuse or for other forensic purposes. Normal [facility] Comment on above: Performed By: #### L [id number], [id number] #### Family And Consumer Science Professor: MODESTA KAMARA ([id number]) [facility] ([facility]) [address] [place] [address] URINE CULTUREon 06-06-2024 Bacteria identified Cx Nom (U) URINE CULTURE Reference Normal urogenital rosy present [ S = SUSCEPTIBLE R = RESISTANT I = INTERMEDIATE S-DD = Susceptible-dose dependent NS = Non-susceptible NO = No Interpretation ] Normal [facility] Comment on above: Performed By: #### L [id number] ####Family And Consumer Science Professor: MODESTA KAMARA ([id number])[facility] ([facility])[address] [place] [address] US BIOPHYSICAL PROFILE WO NON STRESS TESTINGon 06-06-2024 US BIOPHYSICAL PROFILE WO NON STRESS TESTING OBSTETRICS REPORT (Signed Final 06/06/2024 12:42 pm) PATIENT INFO: ID #: [id number] : [birth year] (33 yrs)(F) Name: WILLIS GAUTAM Visit Date: 06/06/2024 10:20 am PERFORMED BY: Attending: Lucinda Bar Performed By: Shani Hines [facility] Referred By: MIAN NARAYANAN Location: [facility] IP Visit Type: Inpatient - Hospital SERVICE(S) PROVIDED: [place] [address] [place] [address] BPP w/out NST 47583 BPP w/out NST 53374 INDICATIONS: Twin , monochorionic/diamniotic, O30.033 third trimester False labor before 37 completed weeks of O47.00 gestation, unspecified trimester Twin , monochorionic/diamniotic, O30.033 third trimester False labor before 37 completed weeks of O47.00 gestation, unspecified trimester Twin , monochorionic/diamniotic, O30.033 third trimester Twin , monochorionic/diamniotic, O30.033 third trimester False labor before 37 completed weeks of O47.00 gestation, unspecified trimester VITAL SIGNS: Weight (lb): 230 Height: 5'8 BMI: 34.97 EVALUATION (FETUS A): Num Of Fetuses: 2 Heart Rate(bpm): 123 Cardiac Activity: Regular rhythm Lie: Maternal RT Presentation: Cephalic Placenta: Anterior Membrane Desc: Monochorionic - diamniotic Amniotic Fluid ALPHONSO FV: Within normal limits Largest Pocket(cm) 4.9 BIOPHYSICAL EVALUATION (FETUS A): Amniotic F.V: Within normal limits F. Tone: Observed F. Movement: Observed Score: 05/08 F. Breathing: Observed BIOMETRY (FETUS A): BPD: 87.2 mm G.Age: 35w 1d 87 % OFD: 109.8 mm HC: 315.4 mm G.Age: 35w 3d 61 % AC: 280.9 mm G.Age: 32w 1d 15 % FL: 63.5 mm G.Age: 32w 6d 21 % LV: 6.39 mm CI: 79.4 % 70 - 86 FL/HC: 20.1 % 19.4 - 21.8 HC/AC: 1.12 0.96 - 1.11 FL/BPD: 72.8 % 71 - 87 FL/AC: 22.6 % 20 - 24 Est. FW: 2081 gm 4 lb 9 oz 37 % FW Discordancy: 0 \ 1 % GESTATIONAL AGE (FETUS A): Clinical AMANDA: 33w 4d AMANDA: 07/21/24 U/S Today: 33w 6d AMANDA: 07/19/24 Best: 33w 4d Det. By: Clinical AMANDA AMANDA: 07/21/24 ANATOMY (FETUS A): Cranium: Normal appearance Ventricles: Normal appearance Face: Normal appearance Lips: Normal appearance Thoracic: Normal appearance Heart: Normal appearance RVOT: Normal appearance LVOT: Normal appearance Aortic Arch: Normal appearance Ductal Arch: Normal appearance Diaphragm: Normal appearance Stomach: Normal appearance Abdomen: Normal appearance Abdominal Wall: Normal appearance Cord Vessels: 3-Vessel Cord Kidneys: Normal appearance Bladder: Normal appearance Upper Extremities: Present Lower Extremities: Present EVALUATION (FETUS B): Num Of Fetuses: 2 Heart Rate(bpm): 127 Cardiac Activity: Regular rhythm Lie: Maternal LT Presentation: Breech Placenta: Anterior Membrane Desc: Monochorionic - diamniotic Amniotic Fluid ALPHONSO FV: Within normal limits Largest Pocket(cm) 4.2 BIOPHYSICAL EVALUATION (FETUS B): Amniotic F.V: Within normal limits F. Tone: Observed F. Movement: Observed Score: 8/8 F. Breathing: Observed BIOMETRY (FETUS B): BPD: 86.6 mm G.Age: 35w 0d 83 % OFD: 104.1 mm HC: 303.8 mm G.Age: 33w 5d 19 % AC: 281.5 mm G.Age: 32w 1d 16 % FL: 63.8 mm G.Age: 33w 0d 24 % CI: 83.2 % 70 - 86 FL/HC: 21.0 % 19.4 - 21.8 HC/AC: 1.08 0.96 - 1.11 FL/BPD: 73.7 % 71 - 87 FL/AC: 22.7 % - Est. FW: 2056 gm 4 lb 9 oz 36 % FW Discordancy: 1 % GESTATIONAL AGE (FETUS B): Clinical AMANDA: 33w 4d AMANDA: 07/21/24 U/S Today: 33w 3d AMANDA: 07/22/24 Best: 33w 4d Det. By: Clinical AMANDA AMANDA: 07/21/24 ANATOMY (FETUS B): Cranium: Normal appearance Face: Normal appearance Lips: Normal appearance Thoracic: Normal appearance Heart: Normal appearance RVOT: Normal appearance LVOT: Normal appearance Diaphragm: Lisa (more content not included)... Normal [facility] OB FOLLOW UP TRANSABDOMIN AL APPROACHon 06-06-2024 OB FOLLOW UP TRANSABDOMINAL APPROACH OBSTETRICS REPORT (Signed Final 06/06/2024 12:42 pm) PATIENT INFO: ID #: [id number] : [birth year] (33 yrs)(F) Name: WILLIS GAUTAM Visit Date: 06/06/2024 10:20 am PERFORMED BY: Attending: Lucinda Bar Performed By: Shani Hines [facility] Referred By: IMAN NARAYANAN Location: [facility] IP Visit Type: Inpatient - Hospital SERVICE(S) [place]: [place] [address] [place] [address] BPP w/out NST 73598 BPP w/out NST 37047 INDICATIONS: Twin , monochorionic/diamniotic, O30.033 third trimester False labor before 37 completed weeks of O47.00 gestation, unspecified trimester Twin , monochorionic/diamniotic, O30.033 third trimester False labor before 37 completed weeks of O47.00 gestation, unspecified trimester Twin , monochorionic/diamniotic, O30.033 third trimester Twin , monochorionic/diamniotic, O30.033 third trimester False labor before 37 completed weeks of O47.00 gestation, unspecified trimester VITAL SIGNS: Weight (lb): 230 Height: 5'8 BMI: 34.97 EVALUATION (FETUS A): Num Of Fetuses: 2 Heart Rate(bpm): 123 Cardiac Activity: Regular rhythm Lie: Maternal RT Presentation: Cephalic Placenta: Anterior Membrane Desc: Monochorionic - diamniotic Amniotic Fluid ALPHONSO FV: Within normal limits Largest Pocket(cm) 4.9 BIOPHYSICAL EVALUATION (FETUS A): Amniotic F.V: Within normal limits F. Tone: Observed F. Movement: Observed Score: 8/8 F. Breathing: Observed BIOMETRY (FETUS A): BPD: 87.2 mm G.Age: 35w 1d 87 % OFD: 109.8 mm HC: 315.4 mm G.Age: 35w 3d 61 % AC: 280.9 mm G.Age: 32w 1d 15 % FL: 63.5 mm G.Age: 32w 6d 21 % LV: 6.39 mm CI: 79.4 % 70 - 86 FL/HC: 20.1 % 19.4 - 21.8 HC/AC: 1.12 0.96 - 1.11 FL/BPD: 72.8 % 71 - 87 FL/AC: 22.6 % 20 - 24 Est. FW: 2081 gm 4 lb 9 oz 37 % FW Discordancy: 0 \ 1 % GESTATIONAL AGE (FETUS A): Clinical AMANDA: 33w 4d AMANDA: 07/21/24 U/S Today: 33w 6d AMANDA: 07/19/24 Best: 33w 4d Det. By: Clinical AMANDA AMANDA: 07/21/24 ANATOMY (FETUS A): Cranium: Normal appearance Ventricles: Normal appearance Face: Normal appearance Lips: Normal appearance Thoracic: Normal appearance Heart: Normal appearance RVOT: Normal appearance LVOT: Normal appearance Aortic Arch: Normal appearance Ductal Arch: Normal appearance Diaphragm: Normal appearance Stomach: Normal appearance Abdomen: Normal appearance Abdominal Wall: Normal appearance Cord Vessels: 3-Vessel Cord Kidneys: Normal appearance Bladder: Normal appearance Upper Extremities: Present Lower Extremities: Present EVALUATION (FETUS B): Num Of Fetuses: 2 Heart Rate(bpm): 127 Cardiac Activity: Regular rhythm Lie: Maternal LT Presentation: Breech Placenta: Anterior Membrane Desc: Monochorionic - diamniotic Amniotic Fluid ALPHONSO FV: Within normal limits Largest Pocket(cm) 4.2 BIOPHYSICAL EVALUATION (FETUS B): Amniotic F.V: Within normal limits F. Tone: Observed F. Movement: Observed Score: 05/08 F. Breathing: Observed BIOMETRY (FETUS B): BPD: 86.6 mm G.Age: 35w 0d 83 % OFD: 104.1 mm HC: 303.8 mm G.Age: 33w 5d 19 % AC: 281.5 mm G.Age: 32w 1d 16 % FL: 63.8 mm G.Age: 33w 0d 24 % CI: 83.2 % 70 - 86 FL/HC: 21.0 % 19.4 - 21.8 HC/AC: 1.08 0.96 - 1.11 FL/BPD: 73.7 % 71 - 87 FL/AC: 22.7 % 20 - 24 Est. FW: 2057 gm 4 lb 9 oz 36 % FW Discordancy: 1 % GESTATIONAL AGE (FETUS B): Clinical AMANDA: 33w 4d AMANDA: 07/21/24 U/S Today: 33w 3d AMANDA: 07/22/24 Best: 33w 4d Det. By: Clinical AMANDA AMANDA: 07/21/24 ANATOMY (FETUS B): Cranium: Normal appearance Face: Normal appearance Lips: Normal appearance Thoracic: Normal appearance Heart: Normal appearance RVOT: Normal appearance LVOT: Normal appearance Diaphragm: Lisa (more content not included)... [facility] CNOVon 06-03-2024 CNOV Office Visit (UCWSTR ) -- WILLIS GAUTAM ([id number]) 1990 F Date Time Provider Department 06/03/24 2:45 PM [address] [facility] During your visit today, we recorded the following information about you: Temperature Pulse Respiration Blood pressure 98.3 degrees 75/minute 16/minute 122/78 Weight 108.5 kg Mary Herrera APRN.[employer] 06/03/2024 2:39 PM Signed This note was created using [employer] Market[employer]. Subjective Willis Gautam is a 33 year old female. 33 year old female with PMH GERD presents for complaints of foot pain. Acute onset 2 weeks ago Right foot Denies trauma or injury Locates pain along lateral aspect Sharp Constant Denies deformity Denies numbness or tingling Denies skin rash or lesions Worse with movement, weight bearing and activity Denies prior history of foot fracture or injury. Of note, she is 33 weeks The history is provided by the patient. No mechanical apprentice was used. Pain (foot) Pain location: right foot. This is a new problem. The current episode started 1 to 4 weeks ago. There has been no history of extremity trauma. The problem occurs constantly. The problem has been waxing and waning. The quality of the pain is described as aching and sharp. The pain is at a severity of 6/10. The pain is moderate. Pertinent negatives include no fever, inability to bear weight, itching, joint locking, joint swelling, limited range of motion, numbness, stiffness or tingling. The symptoms are aggravated by activity. She has tried acetaminophen for the symptoms. The treatment provided mild relief. Family history does not include gout or rheumatoid arthritis. There is no history of diabetes, gout, osteoarthritis or rheumatoid arthritis. PAST MEDICAL HISTORY No date: Benign heart murmur 10/2019: Breast abscess Comment: left No date: extremely dense breast tissue No date: Gestational hypertension 08/23/2020: History of gestational hypertension No date: Small fiber neuropathy PAST SURGICAL HISTORY No date: EXTRACTION, ERUPTED TOOTH OR EXPOSED ROOT (ELEVATION AND/OR FORCEPS REMOVAL) No date: PAST SURGICAL HISTORY OF Comment: removal of bereast abcess ALLERGIES Latex and Penicillins MEDICATIONS magnesium aspart,citrate,oxide (TRIPLE MAGNESIUM COMPLEX) 400 mg magnesium cap Take by mouth as directed. vit no.124/iron/folic ( VITAMIN ORAL) Take by mouth. famotidine (PEPCID ORAL) Take by mouth. FAMILY HISTORY Problem Relation Age of Onset Breast Cancer Mother 53 Hypertension Mother other (equivocal ? SLE) Mother Hypertension Father Ulcerative Colitis Father Colon Cancer Maternal Grandmother Ovarian cancer Other maternal great aunt Parkinson?s Disease Maternal Grandfather other (Lymphoma) Maternal Grandfather No Known Problems Paternal Grandmother Hypertension Paternal Grandfather No Known Problems Daughter Social History Tobacco Use Smoking status: Never Smokeless tobacco: Never Vaping Use Vaping status: Never Used Substance Use Topics Alcohol use: No Drug use: Never Review of Systems Constitutional: Negative for fever. Eyes: Negative for pain, discharge, redness and itching. Respiratory: Negative for apnea, cough, choking and chest tightness. Cardiovascular: Negative for chest pain, palpitations and leg swelling. Gastrointestinal: Negative for abdominal pain, diarrhea, nausea and vomiting. Musculoskeletal: Negative for gout and stiffness. Right foot pain Skin: Negative for color change, itching, pallor, rash and wound. Allergic/Immunologic: Negative for environmental allergies, food allergies and immunocompromised state. Neurological: Negative for dizziness, tingling, facial asymmetry and numbness. Hematological: Negative for adenopathy. Does not bruise/bleed easily. Psychiatric/Behavioral: Negative for agitation and behavioral problems. Objective BP 122/78 Pulse 75 Temp 36.8 ?C (98.3 ?F) (Tympanic) Resp 16 Wt 108.5 kg (239 lb 3.2 oz) LMP 09/17/2023 SpO2 99% BMI 36.37 kg/m? Physical Exam Vitals and nursing note reviewed. Constitutional: General: She is not in acute distress. Appearance: Normal appearance. She is normal weight. She is not ill-appearing, toxic-appearing or diaphoretic. HENT: Head: Normocephalic and atraumatic. Right Ear: Ear canal and external ear normal. Left Ear: Ear canal and external ear normal. Nose: Nose normal. No congestion or rhinorrhea. Mouth/Throat: Mouth: Mucous membranes are moist. Pharynx: No oropharyngeal exudate or posterior oropharyngeal erythema. Eyes: General: Right eye: No discharge. Left eye: No discharge. Extraocular Movements: Extraocular movements intact. Conjunctiva/sclera: Conjunctivae normal. Pupils: Pupils are equal, round, and reactive to light. Cardiovascular: Rate and Rhythm: Normal rate and regular rhythm. Pulses: Lisa (more content not included)... Normal [facility] XR FOOT 3V AP/LAT/OBL RTon 0 06-03-2024 XR FOOT 3V AP/LAT/OBL RT * * *Final Report* * * DATE OF EXAM: Jun 03 2024 2:11PM WOX [id number] - XR FOOT 3V AP/LAT/OBL RT / PROCEDURE REASON: Foot pain, right * * * * Physician Interpretation * * * * CLINICAL INDICATION: Pain TECHNIQUE: 3 view radiographic study of the right foot COMPARISON: None FINDINGS: No acute fracture or dislocation identified. Joint spaces preserved. IMPRESSION: No radiographic evidence of acute osseous injury Museum Archivist: JUAN CARLOS Transcribe Date/Time: Jun 03 2024 2:11P Dictated by : ROME DARBY MD This examination was interpreted and the report reviewed and electronically signed by: ROME DARBY MD on Jun 03 2024 2:23PM EST [id number] Normal [facility] XR Foot - right AP and Later al and obliqueon 06-03-2024 IMPRESSION: No radiographic evidence of acute osseous injury Museum Archivist: PSC Transcribe Date/Time: Jun 03 2024 2:11P Dictated by : ROME DARBY MD This examination was interpreted and the report reviewed and electronically signed by: ROME DARBY MD on Jun 03 2024 2:23PM EST DIVISION OF RADIOLOGY * * *Final Report* * * DATE OF EXAM: Jun 03 2024 2:11PM WOX [id number] - XR FOOT 3V AP/LAT/OBL RT / PROCEDURE REASON: Foot pain, right * * * * Physician Interpretation * * * * CLINICAL INDICATION: Pain TECHNIQUE: 3 view radiographic study of the right foot COMPARISON: None FINDINGS: No acute fracture or dislocation identified. Joint spaces preserved. DIVISION OF RADIOLOGY Provider, Lulu cope Anabel - 06/03/2024 * * *Final Report* * * DATE OF EXAM: Jun 03 2024 2:11PM WOX [id number] - XR FOOT 3V AP/LAT/OBL RT / PROCEDURE REASON: Foot pain, right * * * * Physician Interpretation * * * * CLINICAL INDICATION: Pain TECHNIQUE: 3 view radiographic study of the right foot COMPARISON: None FINDINGS: No acute fracture or dislocation identified. Joint spaces preserved. IMPRESSION IMPRESSION: No radiographic evidence of acute osseous injury Museum Archivist: PSCB Transcribe Date/Time: Jun 03 2024 2:11P Dictated by : ROME DARBY MD This examination was interpreted and the report reviewed and electronically signed by: ROME DARBY MD on Jun 03 2024 2:23PM EST [facility] Radiology Study observation (narrative) Kenny renae [facility] XR Foot - right AP and Later al and obliqueOrdered By: Cc Provider on 06-03-2024 [facility] Progress Noteon 04-15-2024 Equipment Detailer Authentication Interface Message Text We had the pleasure of seeing Willis Gautam in Cardiology at the [facility] at [facility] on 04/15/2024. Ms. Gautam is a 33 y.o. woman who is currently at 26 weeks of gestation seen in consultation for [place] twins at the request of Dr. Angeli Gibson. Obstetric History: Ms. Gautam is 4 para 2 with estimated due date 07/17/2024. Delivery Hospital: Undecided Past medical history: Past Medical History: Diagnosis Date Depression post after last delivery was on medication Gastrointestinal complaints, nonspecific chronic gastritis Heart murmur Mastitis Migraine headache Neuropathy small fiber neuropathy- presents as numbness and tingling Obesity BMI 34, A1C-5.1 Rh incompatibility affecting Current medications: Current Outpatient Medications on File Prior to Visit Medication Sig Dispense Refill Vit w/Ry-Ssdlhmtlv-XO (PNV PO) Take by mouth omeprazole (PRILOSEC) 10 MG capsule Take by mouth daily Magnesium 400 MG CAPS Take by mouth No current facility-administered medications on file prior to visit. Allergies: Allergies Allergen Reactions Penicillins Hives and Rash Family history: The family history was reviewed and is otherwise unremarkable for congenital heart disease, sudden unexplained , arrhythmia. Social History: Willis Gautam lives with her family in [place], [place]. TWIN A, Echocardiogram (04/15/2024): No significant congenital heart disease identified. 1. Twin A - Oblique, head maternal right 2. Normal echocardiogram. 3. Normal biventricular size and function. 4. No atrioventricular valve regurgitation. 5. Normal three vessel view. 6. Normally related great arteries. 7. 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 8. Normal systemic and pulmonary venous connections. 9. This study is limited in evaluating minor valve abnormalities, septal defects, partial anomalous pulmonary venous connection, and aortic arch abnormalities. 10. The above findings, including the limitations, were discussed with the patient. Recommendations: follow-up if softlines supervisor hears a heart murmur or otherwise clinically indicated. TWIN B, Echocardiogram (04/15/2024): No significant congenital heart disease identified. 1. Twin B - Breech, maternal left 2. Normal echocardiogram. 3. Normal biventricular size and function. 4. No atrioventricular valve regurgitation. 5. Normal three vessel view. 6. Normally related great arteries. 7. 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 8. Normal systemic and pulmonary venous connections. 9. This study is limited in evaluating minor valve abnormalities, septal defects, partial anomalous pulmonary venous connection, and aortic arch abnormalities. 10. The above findings, including the limitations, were discussed with the patient. Recommendations: follow-up if softlines supervisor hears a heart murmur or otherwise clinically indicated. Impression: Both echocardiograms are normal. There is normal cardiac anatomy, function, and flow. There are no cardiovascular manifestations of zewn-ue-[id number] transfusion syndrome, at this time. Following the echocardiogram, I met with Ms. Gautam to discuss today's findings and recommendations. I reviewed the normal cardiac anatomy, and explained that there is no evidence of significant cardiac disease in either fetus. I explained the limitations of echocardiography in general, including our inability to rule out mild valve abnormalities, smaller VSDs, certain aortic arch abnormalities, and persistent patency of the ductus arteriosus or the interatrial communication after . Recommendations: Follow-up appointment, Heart Center: As needed. Preferred delivery location: No preference After , follow-up with Pediatric Cardiology: Not indicated, unless the softlines supervisor hears a murmur or otherwise is concerned. Total encounter time was 30 minutes, which includes chart review, counseling, documentation and/or coordination of care. This is separate from the time spent performing and interpreting the echocardiogram. Portions of this medical record have been created using voice recognition software and may have minor errors which are inherent in voice recognition systems. Deborah Suero DO [employer] [facility] [address] [place] [address] Toll-Free: [email or web address] Normal [facility] Progress Noteon 02-20-2024 Equipment Detailer Authentication Interface Message Text [facility]- MEDICINE CONSULT Referring/Requesting Provider: Claudia Aguilera APRN-* PCP: Mei Hernandez PA-C INDICATION FOR CONSULT: monozygotic twin HISTORY OF PRESENT ILLNESS: Patient is a 33 y.o. at 18w2d who presents for consultation regarding monozygotic twin . Spontaneously conceived twins. US today confirms monochorionic diamniotic twin . Willis reports fatigue with the first trimester, now feeling better. No OB complaints (no cramping, VB, vaginal discharge). She does report palpitations with rapid heart beat that occurs about every other day. Was seen by cardiology in the past and had a Holter monitor. She reports a recent normal TSH. Low risk NITP, negative Horizon 14 carrier screen. She does have a history of mastitis after her daughter that progressed into an abscess requiring surgery. We also reviewed her dating. Pt reports certain LMP 10/15/23 with AMANDA Of 07/21/24 confirmed by US. Pt has plans to travel by car to [place] in March, about a [address] Recommend stopping and walking every 2-3 hours for VTE prevention. She would carol like to travel to [facility] for a wedding in May. We reviewed we would need to assess based on status a closer to that time. OB History Para Term AB Living 4 2 2 1 2 SAB IAB Ectopic Multiple Live Births 1 2 # Outcome Date GA Lbr Jose/2nd Weight Sex Type Anes PTL Lv 4 Current 3 Term 04/19/21 40w0d 3.402 kg M Vag-Spont EPI RAHUL 2 SAB 07/2020 5w0d 1 Term 09/11/19 38w0d 3.799 kg F Vag-Spont EPI RAHUL Comments: induced due to bp elevated Past Medical History: Diagnosis Date Depression post after last delivery was on medication Gastrointestinal complaints, nonspecific chronic gastritis Heart murmur Mastitis Migraine headache Neuropathy small fiber neuropathy- presents as numbness and tingling Obesity BMI 34, A1C-5.1 Rh incompatibility affecting Past Surgical History: Procedure Laterality Date ABCESS DRAINAGE Left left breast WISDOM TOOTH EXTRACTION PERTINENT FAMILY HISTORY: Family History Problem Relation Age of Onset Diabetes Mellitus II Mother Breast Cancer Mother Rheum Arthritis Mother Ulcerative Colitis Father Colon Cancer Maternal Grandmother Lymphoma Maternal Grandfather Parkinson's Disease Maternal Grandfather Heart Disease Paternal Grandfather MEDS: Outpatient Medications Marked as Taking for the 02/20/24 encounter (Office Visit) with Angeli Gibson, DO Medication Sig Dispense Refill Vit w/It-Mwthivcek-JN (PNV PO) Take by mouth omeprazole (PRILOSEC) 10 MG capsule Take by mouth daily Magnesium 400 MG CAPS Take by mouth ALLERGY: Allergies Allergen Reactions Penicillins Hives and Rash REVIEW OF SYSTEMS: ROS negative PHYSICAL EXAM: VITAL SIGNS: BP 121/71 Pulse 72 Resp 18 Ht 172.7 cm Wt (!) 100.3 kg (221 lb 3.2 oz) LMP 10/15/2023 (Exact Date) SpO2 98% BMI 33.63 kg/m Physical Exam AAOx3, NAD Resp effort normal IMAGING: See report CONSULT SUMMARY Willis was seen for consultation regarding monochorionic diamniotic twin . Multifetal gestations are associated with an increased risk of maternal, and morbidity and mortality compared to glass gestations. Maternal risks include: hyperemesis, gestational diabetes, hypertension, anemia, hemorrhage, delivery and depression. risks include: twin-twin transfusion syndrome, twin anemia/polycythemia sequence, congenital anomalies, , growth restriction and stillbirth with possible sequelae to a surviving co-twin. Infant risks are largely related to prematurity and include: intraventricular hemorrhage, periventricular leukomalacia, cerebral palsy and . Due to these increased risk, women with a twin should be followed closely for complications. screening options include genetic carrier screening, cell free DNA screening, serum screening (although this is not as sensitive compared to screening a glass ), nuchal translucency, and diagnostic testing ([facility] or amniocentesis). Women carrying multiple gestations should increase their daily dietary intake by about 300 kcal above that for a glass , or 600 kcal over that of a non woman. BMI ?30.0 kg/m2 (obese) - weight gain 25 to 42 lbs (11.4 to 19.1 kg) Nutritional supplement should include: vitamin with iron (30 mg) one daily in the first trimester, then 2 daily until delivery (total iron 30 mg in the first trimester, then 60 mg until delivery) Folic acid 1 mg throughout Calcium 1000 mg daily Vitamin D supplementation if deficient Recommendations: Recommend ASA 81 mg daily to reduce the risk of preeclampsia. visit every month until 24 weeks, then every 2 wee (more content not included)... [facility] Office Visit (UCWSTR ) -- WILLIS GAUTAM ([id number]) 1990 F Date Time Provider Department 01/14/24 1:30 PM KHURRAM ROMERO [facility] During your visit today, we recorded the following information about you: Temperature Pulse Respiration Blood pressure 98.5 degrees 90/minute 20/minute 116/82 Weight 98.1 kg Khurram Romero PA-C 01/14/2024 2:09 PM Signed This note was created using [employer]. Subjective Willis Gautam is a 33 year old female. HPI Patient presents with a chief complaint of sinus pressure and congestion for 2 weeks. She states she had sore throat congestion cough symptoms starting about 2 weeks ago. She thought she was getting better however started to get worsening sinus pressure in the left side of her face into her teeth. She has had a headache. No fever. She is currently 13 weeks with twins. Denies abdominal pain or spotting. She denies diarrhea or vomiting. Review of Systems Constitutional: Negative. HENT: Positive for congestion, ear pain, sinus pressure and sinus pain. Respiratory: Negative. Cardiovascular: Negative. Gastrointestinal: Negative. Genitourinary: Negative. Musculoskeletal: Negative. All other systems reviewed and are negative. PAST MEDICAL HISTORY Diagnosis Date Benign heart murmur Breast abscess 10/2019 left extremely dense breast tissue Gestational hypertension History of gestational hypertension 08/23/2020 Small fiber neuropathy Current Outpatient Medications Medication Sig Dispense Refill cefdinir (OMNICEF) 300 mg capsule Take 1 capsule by mouth two times a day for 7 days. 14 capsule 0 No current facility-administered medications for this visit. PAST SURGICAL HISTORY Procedure Laterality Date EXTRACTION, ERUPTED TOOTH OR EXPOSED ROOT (ELEVATION AND/OR FORCEPS REMOVAL) PAST SURGICAL HISTORY OF removal of bereast abcess FAMILY HISTORY Problem Relation Age of Onset Breast Cancer Mother 53 Hypertension Mother other (equivocal ? SLE) Mother Hypertension Father Ulcerative Colitis Father Colon Cancer Maternal Grandmother Ovarian cancer Other maternal great aunt Parkinson?s Disease Maternal Grandfather other (Lymphoma) Maternal Grandfather No Known Problems Paternal Grandmother Hypertension Paternal Grandfather No Known Problems Daughter Social History Tobacco Use Smoking status: Never Smokeless tobacco: Never Vaping Use Vaping Use: Never used Substance Use Topics Alcohol use: No Drug use: Never Objective BP 116/82 Pulse 90 Temp 36.9 ?C (98.5 ?F) Resp 20 Wt 98.1 kg (216 lb 4.3 oz) LMP 09/17/2023 SpO2 98% BMI 32.88 kg/m? Physical Exam Vitals reviewed. Constitutional: Appearance: Normal appearance. HENT: Head: Normocephalic and atraumatic. Right Ear: Tympanic membrane, ear canal and external ear normal. Left Ear: Tympanic membrane, ear canal and external ear normal. Nose: Congestion present. Right Sinus: No maxillary sinus tenderness or frontal sinus tenderness. Left Sinus: Maxillary sinus tenderness and frontal sinus tenderness present. Mouth/Throat: Mouth: Mucous membranes are moist. Pharynx: Oropharynx is clear. Cardiovascular: Rate and Rhythm: Normal rate and regular rhythm. Heart sounds: Normal heart sounds. Pulmonary: Effort: Pulmonary effort is normal. Breath sounds: Normal breath sounds. Musculoskeletal: Cervical back: Neck supple. Skin: General: Skin is warm and dry. Neurological: General: No focal deficit present. Mental Status: She is alert. Assessment and Plan ASSESSMENT/PLAN: 1. Bacterial sinusitis - ICD9: 473.9, 041.9, ICD10: J32.9, B96.89 - Will begin treatment with as per antibiotic as written, see orders- omnicef due to pcn allergy, has tolerated before. - Supportive care with plenty of fluids, rest, and analgesia prn. - Follow up in 3-5 days if symptoms persist or worsen. SAMREEN Mcdonald-C Allergies As of Date: 01/14/2024 Noted Allergy Reaction LATEX 03/17/2021 14 - Other: See Comments PENICILLINS 07/04/2014 2 - Rash 4 - Hives Date Reviewed: 01/14/2024 Reviewed by: Jimena Tejeda MA - Fully Assessed Reason for Visit: Sinus Problem [99] Cmt: Congestion, FIGUEROA, left ear pain x 2 weeks Primary Visit Diagnosis:Bacterial sinusitis [J32.9, B96.89] Order(s):cefdinir (OMNICEF) 300 mg capsuleTake 1 capsule by mouth two times a day for 7 days.Disp: 14 capsuleRfl: 0 Prescriptions as of 01/14/2024 - cefdinir (OMNICEF) 300 mg capsule Take 1 capsule by mouth two times a day for 7 days. Problem List As Of Date 01/14/2024 Noted Resolved Heart murmur [R01.1] 08/10/2015 Palpitations [R00.2] 08/10/2015 09/06/2020 PAC (premature atrial contraction) [I49.1] 09/01/2015 Non-rheumatic tricuspid valve insufficiency [I3*09/01/2015 Disturbance of skin sensation [R20.9] 11/04/2018 Pain in both lower extremities [M79.604, M79.60*11/04/20180 (more content not included)... Normal [facility] MULTIPLEX SCRN WITH REFL EXon 10-23-2023 NELL Screen, Multiplex Negative Normal Negative [facility] Comment on above: Result Comment: This test includes the following antibodies: Centromere, Chromatin, DsDNA, Jo1, Ribosomal P, INSPECTOR ELEVATORS, ScL70, Sm/INSPECTOR ELEVATORS, Dahl, SSA and SSB. A negative screen result means each antibody listed is negative. If positive, the individual antibody results will be reflexed. Performed By: #### A NASR #### [facility] ([facility]) [address] [place] [address] US FEMALE PELVIS TRANSVAGon 10-11-2023 US FEMALE PELVIS TRANSVAG * * *Final Report* * * DATE OF EXAM: Oct 11 2023 8:12AM WRU 1060 - US FEMALE PELVIS TRANSVAG / PROCEDURE REASON: Vaginal spotting * * * * Physician Interpretation * * * * EXAMINATION: TRANSVAGINAL AND LIMITED TRANSABDOMINAL FEMALE PELVIC ULTRASOUND CLINICAL HISTORY: Abnormal bleeding TECHNIQUE: Sonography of the pelvis was performed by transvaginal and transabdominal (limited) techniques. Images were obtained and stored in a permanent archive. MQ: [id number] COMPARISON: 02/21/2023 RESULT: Uterus: -Size: 9.8 x 4.7 x 5.7 cm -Orientation: Anteverted -Endometrial echo complex: Evaluation of the endometrium was adequate. No endometrial abnormality. The endometrial echo complex measured 1.4 cm. -Cervix: Nabothian cysts present, otherwise unremarkable. -Adenomyosis assessment: There are no sonographic findings of adenomyosis. -Fibroids: There are no fibroids. Right Ovary: 3.2 x 1.5 x 2.8 cm. Normal appearance Left Ovary: 3.2 x 3.4 x 3.1 cm. Normal appearance Free Fluid: No abnormal free fluid is present. IMPRESSION: Normal ultrasound of the pelvis Museum Archivist: [facility] Transcribe Date/Time: Oct 11 2023 12:44P Dictated by : SULEMA AMES MD This examination was interpreted and the report reviewed and electronically signed by: SULEMA AMES MD on Oct 11 2023 12:46PM EST [id number] Normal [facility] CNOVon 09-28-2023 CNOV Office Visit (OBGYWM ) -- WILLIS GAUTAM ([id number]) 1990 F Date Time Provider Department 09/28/23 2:00 PM ELLEN CENTENO OBGYWRupinder During your visit today, we recorded the following information about you: Blood pressure Weight Last Period 110/80 97 kg 09/17/23 Ellen Centeno MD 09/28/2023 2:21 PM Signed Willis Gautam is a 32 year old female who presents for problem visit. HPI: Patient presents with spotting after menses that lasts of to 4 days. Her menses lasts 2-5 days and then the spotting starts within a day. She has some cramping but denies other pain. Also she has been trying to get for 8 months and usually it happens quickly for her. 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 History LMP: 09/17/2023, Having periods Age at Menarche: Age at First : Age at Menopause: Gas Dispenser History Comments: Sexual Activity: Yes; Male Contraception: None PAST MEDICAL HISTORY Diagnosis Date Benign heart murmur Breast abscess 10/2019 left extremely dense breast tissue Gestational hypertension History of gestational hypertension 08/23/2020 Small fiber neuropathy PAST SURGICAL HISTORY Procedure Laterality Date EXTRACTION, ERUPTED TOOTH OR EXPOSED ROOT (ELEVATION AND/OR FORCEPS REMOVAL) PAST SURGICAL HISTORY OF removal of bereast abcess FAMILY HISTORY Problem Relation Age of Onset Breast Cancer Mother 53 Hypertension Mother other (equivocal ? SLE) Mother Hypertension Father Ulcerative Colitis Father Colon Cancer Maternal Grandmother Ovarian cancer Other maternal great aunt Parkinson?s Disease Maternal Grandfather other (Lymphoma) Maternal Grandfather No Known Problems Paternal Grandmother Hypertension Paternal Grandfather No Known Problems Daughter Social History Tobacco Use Smoking status: Never Smokeless tobacco: Never Vaping Use Vaping Use: Never used Substance Use Topics Alcohol use: No Drug use: Never No current outpatient medications on file. No current facility-administered medications for this visit. Allergies As of Date: 09/28/2023 Allergen Noted Reaction LATEX 03/17/2021 Other: See Comments PENICILLINS 07/04/2014 Rash and Hives Fully Assessed 09/28/2023 Allergies and current medication updated:Yes EXAM: BP 110/80 Wt 213 lb 12.8 oz (97.0kg) LMP 09/17/2023 GENERAL: pleasant, female in no apparent distress ASSESSMENT AND PLAN: 32yo female with concerns Discussed that heavier flow followed by spotting could be a normal menstrual cycle since the bleeding typically last 6-9 days. Will check pelvic US. Also discussed that it can often take 12 months to conceive. All questions answered. Medical Decision Making: Problems: Low: Acute, uncomplicated illness or injury Data: Unique test(s) ordered: 1 Risk: Low: Low risk from testing/treatment Medical Decision Making Level: 3 - Low ] Ellen Centeno MD Allergies As of Date: 09/28/2023 Noted Allergy Reaction LATEX 03/17/2021 14 - Other: See Comments PENICILLINS 07/04/2014 2 - Rash 4 - Hives Date Reviewed: 09/28/2023 Reviewed by: Ellen Centeno MD - Fully Assessed Reason for Visit: Menstrual Problem [67] Primary Visit Diagnosis:Vaginal spotting [N93.9] Order(s):PELVIC US WHI [[id number]] Order #: [id number]: 1 FUTURE US FEMALE PELVIS TRANSVAG [[id number]] Order #: [id number] FUTURE Problem List As Of Date 09/28/2023 Noted Resolved Heart murmur [R01.1] 08/10/2015 Palpitations [R00.2] 08/10/2015 09/06/2020 PAC (premature atrial contraction) [I49.1] 09/01/2015 Non-rheumatic tricuspid valve insufficiency [I3*09/01/2015 Disturbance of skin sensation [R20.9] 11/04/2018 Pain in both lower extremities [M79.604, M79.60*11/04/2018 09/06/2020 Concern about neurological disease without diag*11/04/2018 09/06/2020 Myalgia [M79.10] 02/09/2019 Aching leg syndrome [M79.606] 02/09/2019 First trimester [Z34.91] 02/09/2019 11/13/2019 Other skin changes [R23.8] 02/09/2019 09/06/2020 Breast pain [N64.4] 11/21/2019 Current with history of spontaneous a*08/23/2020 History of gestational hypertension [Z87.59] 08/23/2020 Family history of congenital heart defect [Z82.*08/23/2020 Patient requested diagnostic testing [Z01.89] 08/23/2020 Rh negative state in antepartum period [O26.899*09/21/2020 History of mastitis [Z87.59] 01/03/2021 Anxiety [F41.9] 05/13/2021 extremely dense breast tissue [R92.30] 09/28/2021 Obesity, Class I, BMI 30-34.9 [E66.9] 10/04/2021 Myofascial pain dysfunction syndrome [M79.18] 03/17/2022 Small fiber neuropathy [G62.9] 03/17/2022 Muscle ache [M79.10] 03/17/2022 Malaise and fatigue [R53.81, R53.83] 03/17/2022 Central sensitization to pain [G89.29] 03/17/2022 Vitamin E deficiency [E56.0] 03/17/2022 Encounter Status:Closed by ELLEN CENTENO on 09/01 (more content not included)... Normal [facility] MRI CERVICAL SPINE WO IVCONo n 08-04-2023 MRI CERVICAL SPINE WO IVCON * * *Final Report* * * DATE OF EXAM: Aug 04 2023 2:50PM RH 0297 - MRI CERVICAL SPINE WO IVCON / PROCEDURE REASON: CERVICAL DISC DISPLACEMENT * * * * Physician Interpretation * * * * EXAMINATION: MRI CERVICAL SPINE WO IVCON CLINICAL HISTORY: CERVICAL DISC DISPLACEMENT TECHNIQUE: Routine cervical spine MR protocol without gadolinium. MQ: [id number] COMPARISON: None. RESULT: Counting reference: Craniocervical junction. Anatomic Variants: None. Localizer images: No significant findings. Alignment: Straightening of the normal cervical lordosis likely degenerative and positioning. Alignment is otherwise anatomic. Craniocervical junction: Craniocervical junction is normal. Cord: The visualized cord is within normal limits of signal intensity and morphology. Bone marrow signal/fracture: No evidence of pathologic marrow infiltration. No evidence of prior fracture. Cervical soft tissues: The paraspinal soft tissues are within normal limits. C2-C3: Canal and foramina are patent. C3-C4: Canal and foramina are patent. C4-C5: Canal and foramina are patent. Disc degeneration with minimal disc osteophyte complex. C5-C6: Canal and foramina are patent. Disc degeneration with minimal disc osteophyte complex. C6-C7: Canal and foramina are patent. Disc degeneration with minimal disc osteophyte complex. C7-T1: Canal and foramina are patent. IMPRESSION: Minimal cervical spondylosis without high-grade canal narrowing, cord compression, or abnormal cord signal. Anatomic Variant: None. Assume 7 cervical vertebrae with counting from the craniocervical junction. Museum Archivist: [facility] Transcribe Date/Time: Aug 04 2023 2:57P Dictated by : HAVEN NICHOLS MD This examination was interpreted and the report reviewed and electronically signed by: HAVEN NICHOLS MD on Aug 04 2023 2:59PM EST [id number] Normal [facility] DHEA-S BLDon 07-26-2023 DHEA-S [Mass/Vol] 127.9 ug/dL Normal 98.8-340.0 [facility] Comment on above: Order Comment: Speci men Type: BLOOD SPECIMENOrdering Facility: [facility] Address: [address] [place] [address] Result Comment: Refe rence ranges are age and gender specific. For additional information, reference range tables can be found in the laboratory test directory. The normal values are based on the following source: Dehydroepiandrosterone sulfate (DHEA S) [package insert V 17.0 Sudanese]. [facility], [place], [place]: May 2013. Performed By: #### 2 842-3, 3016-3, 35308-8, DHEAS ####[facility] LABCLIA [id number] [facility] [id number] [address] [place] Glucose p fast [facility] 07-26-2023 Glucose post fast [Mass/Vol] 90 mg/dL Normal 74-99 [facility] Comment on above: Order Comment: Speci men Type: BLOOD SPECIMENOrdering Facility: [facility] Address: [address] [place] [address] Result Comment: Amer ican Diabetes Association guidelines state that a diabetes mellitus diagnosis is preliminarily made when the fasting plasma glucose meets or exceeds 126 mg/dL. In the absence of unequivocal hyperglycemia, results should be confirmed with repeat testing. Patients are at increased risk for diabetes mellitus (prediabetes) when the fasting glucose is 100 to 125 mg/dL. Performed By: #### 1 558-6 ####[facility] LABCLIA [id number] [address] HbA1c (Bld)on 07-26-2023 Average glucose Estimated from glycated hemoglobin (Bld) [Mass/Vol] 97 mg/dL Normal [facility] Comment on above: Order Comment: Celena cottrell Type: BLOOD SPECIMENOrdering Facility: [facility] Address: [address] [place] [address] Result Comment: eAG: (Estimated average glucose) is a calculated value from HgbA1c and is graphic art sales representative of the average blood glucose level in the last 2-3 month period. Performed By: #### 5 5454-3 ####[facility] LABIA [id number] [address] HbA1c (Bld) [Mass fraction] 5.0 % Normal 4.3-5.6 [facility] Comment on above: Order Comment: Celena cottrell Type: BLOOD SPECIMENOrdering Facility: [facility] Address: [address] [place] [address] Result Comment: Darren ican Diabetes Association guidelines indicate that patients with HgbA1c in the range 5.7-6.4% are at increased risk for development of diabetes, and intervention by lifestyle modification may be beneficial. HgbA1c greater or equal to 6.5% is considered diagnostic of diabetes. Performed By: #### 5 5454-3 ####[facility] LABIA [id number] [place] [address] [place] LH SerPl-aCncon 07-26-2023 Lutropin Qn 6.6 m[IU]/mL Normal See comment [facility] Comment on above: Order Comment: Celena cottrell Type: BLOOD SPECIMENOrdering Facility: [facility] Address: [address] [place] [address] Result Comment: Refe rence range: Follicular: 2.4-12.6 mIU/mL Midcycle: 14.0-95.6 mIU/mL Luteal: 1.0-11.4 mIU/mL [place]: 7.7-58.5 mIU/mL Performed By: #### 2 842-3, 3016-3, 64967-3, DHEAS ####[facility] LABCLIA [id number] [place] [address] [place] Prolactin SerPl-mCncon 07-26 Prolactin [Mass/Vol] 11.7 ng/mL Normal 4.5-26.8 [facility] Comment on above: Order Comment: Speci men Type: BLOOD SPECIMENOrdering Facility: [facility] Address: [address] [place] [address] Result Comment: Prol actin test is performed using the [facility] Electrochemiluminescence Immunoassay method. Results obtained with different methods or kits cannot be used interchangeably. Performed By: #### 2 842-3, 3016-3, 30508-6, DHEAS ####[facility] LABCLIA [id number] [address] [place] TESTOSTERONE, FREE AND TOTAL on 07-26-2023 TESTOSTERONE, FREE, S 0.51 ng/dL Normal <0.13-1.03 [facility] Comment on above: Order Comment: Speci men Type: BLOOD SPECIMENOrdering Facility: [facility] Address: [address] [place] [address] Result Comment: ADDITIONAL INFORMATION This test was developed and its performance characteristics determined by [facility] in a manner consistent with CLIA requirements. This test has not been cleared or approved by the U.S. Food and Drug Administration. Performed By: #### T FTEST ####[facility] LABCLIA [id number] [place] [address] TESTOSTERONE, TOTAL, S 41 ng/dL Normal 8-60 [facility] Comment on above: Order Comment: Celena cottrell Type: BLOOD SPECIMENOrdering Facility: [facility] Address: [place] [id number] Result Comment: ADDITIONAL INFORMATION Testing performed by Liquid Chromatography-Tandem Mass Spectrometry (LC-MS/MS). This test was developed and its performance characteristics determined by [facility] in a manner consistent with CLIA requirements. This test has not been cleared or approved by the U.S. Food and Drug Administration. Test Performed by: [facility] [address] [place] [address] Cushion Sewer: Shan Berger M.D. Ph.D.; CLIA# [id number] Performed By: #### T FTEST ####[facility] LABCLIA [id number] [place] [id number] [facility] 07-26-2023 TSH Qn 1.550 m[IU]/L Normal 0.270-4.20 0 [facility] Comment on above: Order Comment: Celena cottrell Type: BLOOD SPECIMENOrdering Facility: [facility] Address: [place] [id number] Result Comment: If t he patient is , TSH reference range varies by gestational period: First Trimester (weeks 9-12): 0.180-2.990 mIU/L Second Trimester: 0.110-3.980 mIU/L Third Trimester: 0.480-4.710 mIU/L Yrn Fisher et al. A Practical Approach for the Verifications and Determination of Site- and Trimester-Specific Reference Intervals for Thyroid Function tests in . Thyroid, 2019:29:3:412-420. Jourdan E, et al. 2017 Guidelines of the [place] Thyroid Association for the Diagnosis and Management of Thyroid Disease during and the . Thyroid, 2017:27:3:315-389. Performed By: #### 2 842-3, 3016-3, 90433-1, DHEAS ####[facility] LABCLIA [id number] [address] [place] [address] [place] [facility] CNOVon 07-20-2023 CNOV Office Visit (OBGYWM ) -- WILLIS GAUTAM ([id number]) 1990 F Date Time Provider Department 07/20/23 10:30 AM DANAE MARC OBGYWM During your visit today, we recorded the following information about you: Blood pressure Weight Last Period 118/64 95.7 kg 06/28/23 Danae Marc APRN.CNM 07/20/2023 4:32 PM Signed Willis Gautam is a 32 year old female who presents for problem visit of hormone imbalance. She reports feeling off since delivery of son 2 years ago. Feels like cycles are irregular and mood changes after cycle ends. Voicing frustration due to actively trying to conceive for the past 6 months and not . She is tracking cycles and just bought ovulation kits to use. Previous 2 pregnancies were unplanned and with same partner. Denies any recent changes in health status or medications. Cycles are approximately every 22-28 days and last anywhere from 2 days to several with spotting. Does not miss cycles. Seen by PCP and was sent here for evaluation and serum hormone levels. 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 History LMP: 06/28/2023, Having periods Age at Menarche: Age at First : Age at Menopause: Gas Dispenser History Comments: Sexual Activity: Yes; Male Contraception: None PAST MEDICAL HISTORY Diagnosis Date Benign heart murmur Breast abscess 10/2019 left extremely dense breast tissue Gestational hypertension Small fiber neuropathy PAST SURGICAL HISTORY Procedure Laterality Date EXTRACTION, ERUPTED TOOTH OR EXPOSED ROOT (ELEVATION AND/OR FORCEPS REMOVAL) PAST SURGICAL HISTORY OF removal of bereast abcess FAMILY HISTORY Problem Relation Age of Onset Breast Cancer Mother 53 Hypertension Mother other (equivocal ? SLE) Mother Hypertension Father Ulcerative Colitis Father Colon Cancer Maternal Grandmother Ovarian cancer Other maternal great aunt Parkinson?s Disease Maternal Grandfather other (Lymphoma) Maternal Grandfather No Known Problems Paternal Grandmother Hypertension Paternal Grandfather No Known Problems Daughter Social History Tobacco Use Smoking status: Never Smokeless tobacco: Never Vaping Use Vaping Use: Never used Substance Use Topics Alcohol use: No Drug use: Never No current outpatient medications on file. No current facility-administered medications for this visit. Allergies As of Date: 07/20/2023 Allergen Noted Reaction LATEX 03/17/2021 Other: See Comments PENICILLINS 07/04/2014 Rash and Hives Fully Assessed 07/20/2023 REVIEW OF SYSTEMS Abdomen: No bloating, early satiety, indigestion, or increased flatulence. No abdominal pain, nausea, vomiting, diarrhea, or constipation. Bladder: No dysuria, gross hematuria, urinary frequency, urinary urgency, or incontinence. Breast: No breast lumps, nipple d/c, overlying skin changes, redness or skin retraction. Expanded ROS: N/A Allergies and current medication updated:Yes EXAM: BP 118/64 Wt 211 lb (95.7kg) LMP 06/28/2023 GENERAL: pleasant, female in no apparent distress HEENT: Normocephalic and atraumatic NECK: Supple and full range of motion DERMATOLOGY: Normal and without lesions BREAST: deferred CHEST: Normal inspiratory effort ABDOMEN: Deferred PELVIC: deferred BIMANUAL: deferred NEURO: alert and oriented x3,exam grossly non-focal EXTREMITIES: normal ASSESSMENT/PLAN: 1. Female infertility - ICD9: 628.9, ICD10: N97.9 (primary diagnosis) - Briefly reviewed consult to [facility]- declines - May have 's sperm count/mobility evaluated - May be interested in trying Clomid in the future - Pelvic US on 02/15/23- normal (other than small ovarian cyst) - TSH BLD - PROLACTIN BLD - TESTOSTERONE, FREE AND TOTAL - DHEA-S BLD - HYDROXYPROGESTERO-17- day 21 of cycle - FSH BLD- day 3 of cycle - LUTEINIZING HORMONE - ESTRADIOL-17B BLD- day 3 of cycle - HGB A1C - GLUCOSE FASTING BLD 2. Irregular periods/menstrual cycles - ICD9: 626.4, ICD10: N92.6 Will follow up after lab results Danae Marc APRN.CNM Allergies As of Date: 07/20/2023 Noted Allergy Reaction LATEX 03/17/2021 14 - Other: See Comments PENICILLINS 07/04/2014 2 - Rash 4 - Hives Date Reviewed: 07/20/2023 Reviewed by: Vanessa Jurado Ma - Fully Assessed Reason for Visit: Discussion [813] Primary Visit Diagnosis:Female infertility [N97.9] Other Visit Diagnosis:Irregular periods/menstrual cycles [N92.6] Order(s):TSH BLD [SQTSH] Order #: [id number] FUTURE PROLACTIN BLD [SQPROL] Order #: [id number] FUTURE TESTOSTERONE, FREE AND TOTAL [SQTFTEST] Order #: [id number] FUTURE DHEA-S BLD [SQDHEAS] Order #: [id number] FUTURE HYDROXYPROGESTERO-17 [SQHPROG] Order #: [id number] FUTURE FSH BLD [SQFSH] Order #: [id number] FUTURE LUTEINIZING HORMONE [SQLH] Order #: [id number] FUTURE ESTRADIOL-17B BLD [SQE2] Order #: [id number] (more content not included)... Normal [facility] CNOVon 06-10-2023 CNOV Office Visit (UCWSTR ) -- WILLIS GAUTAM ([id number]) 1990 F Date Time Provider Department 06/10/23 9:15 AM MIKE MCCARTHY [facility] During your visit today, we recorded the following information about you: Temperature Pulse Respiration Blood pressure 97.4 degrees 90/minute 16/minute 102/66 Weight 94.8 kg Mike Mccarthy APRN.[employer] 06/10/2023 10:22 AM Signed Subjective HPI Nontoxic-appearing female presents urgent care chief complaint neck and back pain. Duration of symptoms 1 day. Associated symptoms neck and back discomfort. Patient states she has chronic back pain and she has been under care for this condition for the last year. Has noticed increased back pain and neck pain the last 24 hours. States she was playing with her children when she noticed that this discomfort. Does not know if she moves wrong. She did take Motrin this did help. Presents today for evaluation. Describes discomfort 3 out of 10. States she has a burning nervelike sensation in her back and neck. States yesterday she was unable to move her neck due to discomfort she is able to move today. Has not taken any OTC medications in the last 12 hours. This denies any trauma. No decreased range of motion of neck. No saddle anesthesia or incontinence. Denies any fever body aches chills productive cough chest pain shortness of breath pleuritic pain hemoptysis nausea vomiting abdominal pain change in bowel or bladder habits. Past medical history prescription medication use and allergies reviewed. .Patient presents with: Neck Pain: back of neck x 1 day, chronic, burning sensation neck, back, chest and arms PAST MEDICAL HISTORY Diagnosis Date Benign heart murmur Breast abscess 10/2019 left extremely dense breast tissue Gestational hypertension Small fiber neuropathy PAST SURGICAL HISTORY Procedure Laterality Date EXTRACTION, ERUPTED TOOTH OR EXPOSED ROOT (ELEVATION AND/OR FORCEPS REMOVAL) PAST SURGICAL HISTORY OF removal of bereast abcess ALLERGIES Latex and Penicillins MEDICATIONS loratadine (CLARITIN) 10 mg tablet Take 1 tablet by mouth once daily. (Patient not taking: Reported on 07/28/2022) escitalopram oxalate (LEXAPRO) 10 mg tablet Take 0.5 tablets by mouth once daily. (Patient not taking: Reported on 09/10/2022) Magnesium 200 mg tab Take by mouth. (Patient not taking: Reported on 05/10/2022) FAMILY HISTORY Problem Relation Age of Onset Breast Cancer Mother 53 Hypertension Mother other (equivocal ? SLE) Mother Hypertension Father Ulcerative Colitis Father Colon Cancer Maternal Grandmother Ovarian cancer Other maternal great aunt Parkinson?s Disease Maternal Grandfather other (Lymphoma) Maternal Grandfather No Known Problems Paternal Grandmother Hypertension Paternal Grandfather No Known Problems Daughter Social History Tobacco Use Smoking status: Never Smokeless tobacco: Never Vaping Use Vaping Use: Never used Substance Use Topics Alcohol use: No Drug use: Never BP 102/66 Pulse 90 Temp 36.3 ?C (97.4 ?F) Resp 16 Wt 94.8 kg (209 lb) LMP 07/14/2022 SpO2 99% BMI 31.78 kg/m? Review of Systems Constitutional: Negative for chills, fever and malaise/fatigue. HENT: Negative for congestion, ear discharge, ear pain, sinus pain and sore throat. Eyes: Negative for blurred vision, pain, discharge and redness. Respiratory: Negative for cough, hemoptysis, sputum production, shortness of breath, wheezing and stridor. Cardiovascular: Negative for chest pain. Gastrointestinal: Negative for abdominal pain, diarrhea, nausea and vomiting. Musculoskeletal: Positive for back pain and neck pain. Negative for falls, joint pain and myalgias. Skin: Negative for itching and rash. Neurological: Negative for dizziness and headaches. Objective Physical Exam Constitutional: General: She is not in acute distress. Appearance: She is not diaphoretic. HENT: Head: Normocephalic. Jaw: No trismus, tenderness, swelling or pain on movement. Mouth/Throat: Mouth: Mucous membranes are moist. Pharynx: Oropharynx is clear. Uvula midline. No pharyngeal swelling, oropharyngeal exudate, posterior oropharyngeal erythema or uvula swelling. Eyes: Conjunctiva/sclera: Conjunctivae normal. Pupils: Pupils are equal, round, and reactive to light. Cardiovascular: Rate and Rhythm: Normal rate and regular rhythm. Heart sounds: Normal heart sounds. Pulmonary: Effort: Pulmonary effort is normal. No tachypnea, accessory muscle usage or respiratory distress. Breath sounds: Normal breath sounds. No stridor. No wheezing, rhonchi or rales. Abdominal: General: There is no distension. Palpations: Abdomen is soft. Tenderness: There is no abdominal tenderness. There is no guarding or rebound. Musculoskeletal: Cervical back: Normal range of motion and neck supple. No edema, erythema (more content not included)... Normal [facility] US FEMALE PELVIS TRANSVAGon 02-21-2023 [facility] STREP A MOLECULAR (POC)on Procedural Control Valid [facility] Strep A (POCT) Negative Negative [facility] PELVIC US WHIon 08-01-2022 [facility] STREP A MOLECULAR (POC)on Procedural Control Valid [facility] Strep A (POCT) Negative Negative [facility] XR CHEST 2V FRONTAL/LATon [facility] XR Chest PA and Lateralon IMPRESSION: No acute radiographic abnormality. Museum Archivist: JUAN CARLOS Transcribe Date/Time: May 10 2022 8:16A Dictated by : ROME DARBY MD This examination was interpreted and the report reviewed and electronically signed by: ROME DARBY MD on May 10 2022 8:17AM EST ZZZ_DO_NOT_ USE_DIVISIO N OF RADIOLOGY * * *Final Report* * * DATE OF EXAM: May 10 2022 8:13AM WOX [id number] - XR CHEST 2V FRONTAL/LAT / PROCEDURE REASON: Acute cough * * * * Physician Interpretation * * * * EXAMINATION: CHEST RADIOGRAPH (2 VIEW FRONTAL & LATERAL) CLINICAL HISTORY: Acute cough MQ: XC2_6 EXAM DATE/TIME: 05/10/2022 8:13 AM COMPARISON: No relevant prior studies available. RESULT: Lines, tubes, and devices: None. Lungs and pleura: No consolidation. No lung mass. No pleural effusion. No pneumothorax. Cardiomediastinal silhouette: Normal cardiomediastinal silhouette. Bones and soft tissues: Unremarkable. ZZZ_DO_NOT_ USE_DIVISIO N OF RADIOLOGY Provider, [facility] - 05/10/2022 * * *Final Report* * * DATE OF EXAM: May 10 2022 8:13AM WOX [id number] - XR CHEST 2V FRONTAL/LAT / PROCEDURE REASON: Acute cough * * * * Physician Interpretation * * * * EXAMINATION: CHEST RADIOGRAPH (2 VIEW FRONTAL & LATERAL) CLINICAL HISTORY: Acute cough MQ: XC2_6 EXAM DATE/TIME: 05/10/2022 8:13 AM COMPARISON: No relevant prior studies available. RESULT: Lines, tubes, and devices: None. Lungs and pleura: No consolidation. No lung mass. No pleural effusion. No pneumothorax. Cardiomediastinal silhouette: Normal cardiomediastinal silhouette. Bones and soft tissues: Unremarkable. IMPRESSION IMPRESSION: No acute radiographic abnormality. Museum Archivist: JUAN CARLOS Transcribe Date/Time: May 10 2022 8:16A Dictated by : ROME DARBY MD This examination was interpreted and the report reviewed and electronically signed by: ROME DARBY MD on May 10 2022 8:17AM EST [facility] Radiology Study observation (narrative) Kenny renae [facility] XR Chest PA and LateralOrder ed By: [facility] Provider on 05-10-2022 [facility] CNOVon 10-04-2021 CNOV Office Visit ([facility] R) -- WILLIS GAUTAM ([id number]) 1990 F Date Time Provider Department 10/04/21 9:45 AM ANASTASIYA ROUSE AGGANDREZ During your visit today, we recorded the following information about you: Pulse Blood pressure Weight Height 76/minute 126/62 93 kg 1.727 m Last Period 09/26/21 Ebonie Lord MA 10/04/2021 9:57 AM Signed Patient is here today due to left breast pain. Patient is at high risk of developing breast cancer. Last visit was 03-19-20. Patient stated she was supposed to have a follow ultrasound and never had that performed. Patient stated she noticed some twinges after her second child. The twinges come and go. Patient denies any lumps in her breasts. BETHANY Arcos MD 10/04/2021 10:17 AM [place] [address] SUBJECTIVE Chief Complaint: Patient presents with: Breast Problem: left breast pain . HPI Willis Gautam is a 30 year old female here today for evaluation of left breast pain. History of left breast abscess while . Patient noted sharp twinges a few times a week. No specific exacerbating factors and they resolve spontaneously after a few minutes. She denies palpating any breast masses or axillary adenopathy. No skin or nipple changes. No nipple discharge. No recent imaging. Nursing Notes: Ebonie Lord MA 10/04/2021 9:57 AM Signed Patient is here today due to left breast pain. Patient is at high risk of developing breast cancer. Last visit was 03-19-20. Patient stated she was supposed to have a follow ultrasound and never had that performed. Patient stated she noticed some twinges after her second child. The twinges come and go. Patient denies any lumps in her breasts. Eboniemarycarmen Lord MA AGE AT [place] 14 AGE AT FIRST 28 FAMILY HISTORY OF BREAST CANCER Yes (IF YES) NUMBER OF FIRST DEGREE RELATIVES WITH BREAST CANCER 1 PREVIOUS BREAST BIOPSIES No (IF YES) PREVIOUS BREAST BIOPSY WITH ATYPICAL HYPERPLASIA No RACE JULITA MODEL RISK 5 YEAR age is <35 TYRER CUZICK SCORE 27.0 Review of Systems Constitutional: Negative for fever, malaise/fatigue and weight loss. Breast: See HPI PAST MEDICAL HISTORY Diagnosis Date - Benign heart murmur - Breast abscess 10/2019 left - extremely dense breast tissue - Gestational hypertension - Small fiber neuropathy PAST SURGICAL HISTORY Procedure Laterality Date - EXTRACTION, ERUPTED TOOTH OR EXPOSED ROOT (ELEVATION AND/OR FORCEPS REMOVAL) - PAST SURGICAL HISTORY OF removal of bereast abcess Social History Tobacco Use - Smoking status: Never Smoker - Smokeless tobacco: Never Used Vaping Use - Vaping Use: Never used Substance Use Topics - Alcohol use: No - Drug use: Never FAMILY HISTORY Problem Relation Age of Onset - Breast Cancer Mother 53 - Hypertension Mother - other (equivocal ? SLE) Mother - Hypertension Father - Ulcerative Colitis Father - Colon Cancer Maternal Grandmother - Ovarian cancer Other maternal great aunt - Parkinson?s Disease Maternal Grandfather - other (Lymphoma) Maternal Grandfather - No Known Problems Paternal Grandmother - Hypertension Paternal Grandfather - No Known Problems Daughter The ROS, medical, surgical, family, and social history were reviewed by Anastasiya Rouse MD ALLERGIES Allergen Reactions - Latex Other: See Comments - Penicillins Rash, Hives Current Outpatient Medications Medication Sig - Magnesium 200 mg tab Take by mouth. - escitalopram oxalate (LEXAPRO) 10 mg tablet Take 0.5 tablets by mouth once daily. Current Facility-Administered Medications Medication Dose Route Frequency - acetylcholine 10% solution - cchs compounding 20 mL IRRIGATION ONE TIME OBJECTIVE BP 126/62 Pulse 76 Ht 172.7 cm (5' 8 ) Wt 93 kg (205 lb) LMP 09/26/2021 BMI 31.17 kg/m? BMI 31.17 kg/(m2) Physical Exam Neck: Thyroid: No thyromegaly. Chest: Breasts: Breasts are symmetrical. Right: No inverted nipple, mass, nipple discharge, skin change, tenderness or supraclavicular adenopathy. Left: No inverted nipple, mass, nipple discharge, skin change, tenderness or supraclavicular adenopathy. Lymphadenopathy: Head: Right side of head: No submental, submandibular or tonsillar adenopathy. Left side of head: No submental, submandibular or tonsillar adenopathy. Cervical: No cervical adenopathy. Upper Body: Right upper body: No supraclavicular adenopathy. Left upper body: No supraclavicular adenopathy. Neurological: Mental Status: She is alert and oriented to person, place, and time. Cranial Nerves: Cranial nerves are intact. Plan ASSESSMENT/PLAN Breast pain Ms. Gautam is a 30 year old female with history of left breast abscess due to here for evaluation of l (more content not included)... Normal [facility] Laboratory - Chemistry and C hemistry - challengeon 07-27-2020 Albumin [Mass/Vol] 3.9 g/dL Normal 3.5 - 5.0 g/dL [facility] [employer] [facility].; J[employer] Touch EMR. Albumin/Globulin [Mass ratio] 1.1 {ratio} Normal [facility]; [employer] Touch EMR. ALP [Catalytic activity/Vol] 56 U/L Normal 50 - 136 U/L [place] [employer] [facility].; [employer] Touch EMR. Alpha tocopherol [Mass/Vol] 10.2 Normal [employer] [facility].; [employer] Touch EMR. ALT [Catalytic activity/Vol] 20 mmol/L Normal 12 - 49 mmol/L [employer] [facility].; [employer] Touch EMR. AST [Catalytic activity/Vol] 15 U/L Normal 15 - 37 U/L [employer] [facility].; [employer] Touch EMR. Bilirubin [Mass/Vol] 0.50 mg/dL Normal 0.3 - 1 .0 mg/dL [employer] [facility].; JallohGust, Nitrous.IO. Calcium [Mass/Vol] 8.8 mg/dL Normal 8.4 - 10. 6 mg/dL [employer] EMR.; [employer] Touch EMR. Chloride [Moles/Vol] 107 mmol/L Normal 98 - 11 0 mmol/L [facility].; [facility] [employer] [facility]. Cholesterol [Mass/Vol] 146 mg/dL Normal 0 - 2 00 mg/dL [facility].; [facility]. Cholesterol in HDL [Mass/Vol] 46 mg/dL Normal 40 - 60 mg/dL [facility].; [facility], [facility] Cholesterol in LDL [Mass/Vol] 81 mg/dL Normal 50.0 - 130.0 mg/dL [facility].; [facility] [employer] [facility] Cholesterol in VLDL [Mass/Vol] 19 mg/dL Normal [facility]; [facility] [employer] [facility] Cholesterol.total/Sonja sterol in HDL [Mass ratio] - Normal 0 - 5.0 [facility]; [facility] [employer] [facility] CO2 [Moles/Vol] 25.0 {emmett/L} Normal 22.0 - 32.0 {emmett/L} [facility].; [facility] [employer] [facility]. Creatinine [Mass/Vol] 0.81 mg/dL Normal 0.6 - 1.4 mg/dL [facility].; [facility] [employer] [facility]. Cryoglobulin 1 day cold incubation Ql (S) Not detected Normal [facility]; [facility], [facility] Globulin (S) [Mass/Vol] 3.7 g/dL Normal 1.5 - 3.8 g/dL [facility].; [facility], [facility]. Glucose [Mass/Vol] 89 mg/dL Normal 75 - 105 mg/dL [facility] [employer] [facility].; [facility], [facility]. Potassium [Moles/Vol] 4.0 mmol/L Normal 3.50 - 5.00 meq/L [facility].; [facility], [facility] Protein [Mass/Vol] 7.6 g/dL Normal 6.4 - 8.2 g/dL [facility], [facility].; [facility], [facility]. Sodium [Moles/Vol] 138 mmol/L Normal 136 - 145 mmol/L [facility].; [facility], [facility]. Triglyceride [Mass/Vol] 96 mg/dL Normal 40 - 150 mg/dL [facility] [employer].; J[employer]ohOne Touch EMR. Urea nitrogen [Mass/Vol] 7 mg/dL Normal 7.0 - 20.0 mg/dL [facility] [facility] Urea nitrogen/Creatinine [Mass ratio] 8.7 mg/mg Normal 0 - 30 [place] [facility] J[employer]ohOne Touch EMR. Laboratory - Serology - non- microon 07-27-2020 Nuclear Ab (Body fld) [Titer] Positive Normal 0 - 1 [place] [facility] J[employer]ohOne Touch EMR. No Panel Informationon 07-27 GFR 89 Normal [facility] [employer]ohOne Touch EMR. GFR2 108 Normal [facility]; [facility] [facility]. [facility] DI[facility]IC BILon 020 [facility] * * *Final Report* * * DATE OF EXAM: Nov 12 2019 11:11AM AAW [id number] - [facility] / PROCEDURE REASON: Left breast abscess * * * * Physician Interpretation * * * * #[id number] - [facility] [place] #[id number] - [facility] US BREAST LTD LT BILATERAL DIGITAL DIAGNOSTIC MAMMOGRAM WITH CAD: 11/12/2019 HISTORY: Patient presents with left breast lump. Patient presents with left breast pain. Left Breast Abscess. RESULT: TECHNIQUE: The study was acquired using full field digital technology and interpreted from soft copy. Current study was also evaluated with a Computer Aided Detection (CAD). No prior exams were available for comparison. The tissue of both breasts is extremely dense, which lowers the sensitivity of mammography. No significant masses, calcifications, or other findings are seen in either breast. IMPRESSION: INCOMPLETE: NEEDS ADDITIONAL IMAGING EVALUATION There is no abnormality seen in the left breast to correspond with the area of clinical concern and palpable abnormality, however, ultrasound is recommended. LIMITED ULTRASOUND OF LEFT BREAST: 11/12/2019 RESULT: No prior exams were available for comparison. Color flow and real-time ultrasound of the left breast 2-3 o'clock and 6 o'clock regions were performed. Deng scale images of the real-time examination were reviewed. There is an area in the left breast at 3 o'clock anterior depth 3 cm from the nipple. This area is hypoechoic. This correlates as palpated and with area of clinical concern. There also is a benign 7 mm cyst in the left breast at 3 o'clock middle depth. This correlates as an incidental finding. IMPRESSION: PROBABLY BENIGN - SHORT TERM INTERVAL FOLLOW-UP RECOMMENDED The area in the left breast at 3 o'clock anterior depth most likely is mastitis and is probably benign. A follow-up ultrasound in 3 months is recommended. The 7 mm cyst in the left breast at 3 o'clock middle depth is consistent with a simple cyst and is benign. There is no abnormality seen in the left breast to correspond with the palpable abnormality at 6 o'clock, however, clinical followup is recommended. There is no abnormality seen in the left breast to correspond with the area of clinical concern at 2 o'clock, however, clinical followup is recommended. A follow-up ultrasound in 3 months is recommended. SUMMARY: There is no evidence of residual abscess. The area of palpable abnormality at 3 o'clock likely represents mastitis or an area of resolving edema/infection. Followup to document resolution is recommended. Lloyd her/ghulam:11/12/2019 12:21:08 Multiple national specialty organizations have released breast cancer screening guidelines for women at average risk for developing breast cancer - guidelines that are based on both evidence and opinion, yet differ on when to start and how often to screen for breast cancer. With representation from Breast Imaging, Internal Medicine, Women's Health, Family Medicine, and Medical/Surgical Oncology, the [facility] has carefully reviewed the data and reached the following consensus: 1) All women should engage in shared decision-making with their providers to decide when to start and how often to screen; 2) All women should have the opportunity to start screening mammography at age 40; 3) For women ages 45-55, we recommend annual screening mammograms; 4) For women ages 55 and over, we support both the transition from an annual to a biennial interval if this aligns more with patient's values and preferences, or continuation with annual screening; 5) All women should discuss with their providers when to stop screening mammograms. Marble Polisher(s): Tana Davenport RT(R)(M), [employer]; Sulema Hirsch RT, [employer] OVERALL STUDY BIRADS: 3 Probably benign finding - short term interval follow-up recommended Museum Archivist: Ghulam Transcribe Date/Time: Nov 12 2019 10:43A Dictated by : LLOYD KAY MD This examination was interpreted and the report reviewed and electronically signed by: LLOYD KAY MD on Nov 12 2019 12:21PM EST Normal [facility] US BREAST LTD LTon 11-12 [facility] US BREAST LTD LT * * *Final Report* * * DATE OF EXAM: Nov 12 2019 11:47AM AAW [id number] - [facility] US BREAST LTD LT / PROCEDURE REASON: Left breast abscess * * * * Physician Interpretation * * * * #[id number] - [facility] #[id number] - [facility] US BREAST LTD LT BILATERAL DIGITAL DIAGNOSTIC MAMMOGRAM WITH CAD: 11/12/2019 HISTORY: Patient presents with left breast lump. Patient presents with left breast pain. Left Breast Abscess. RESULT: TECHNIQUE: The study was acquired using full field digital technology and interpreted from soft copy. Current study was also evaluated with a Computer Aided Detection (CAD). No prior exams were available for comparison. The tissue of both breasts is extremely dense, which lowers the sensitivity of mammography. No significant masses, calcifications, or other findings are seen in either breast. IMPRESSION: INCOMPLETE: NEEDS ADDITIONAL IMAGING EVALUATION There is no abnormality seen in the left breast to correspond with the area of clinical concern and palpable abnormality, however, ultrasound is recommended. LIMITED ULTRASOUND OF LEFT BREAST: 11/12/2019 RESULT: No prior exams were available for comparison. Color flow and real-time ultrasound of the left breast 2-3 o'clock and 6 o'clock regions were performed. Deng scale images of the real-time examination were reviewed. There is an area in the left breast at 3 o'clock anterior depth 3 cm from the nipple. This area is hypoechoic. This correlates as palpated and with area of clinical concern. There also is a benign 7 mm cyst in the left breast at 3 o'clock middle depth. This correlates as an incidental finding. IMPRESSION: PROBABLY BENIGN - SHORT TERM INTERVAL FOLLOW-UP RECOMMENDED The area in the left breast at 3 o'clock anterior depth most likely is mastitis and is probably benign. A follow-up ultrasound in 3 months is recommended. The 7 mm cyst in the left breast at 3 o'clock middle depth is consistent with a simple cyst and is benign. There is no abnormality seen in the left breast to correspond with the palpable abnormality at 6 o'clock, however, clinical followup is recommended. There is no abnormality seen in the left breast to correspond with the area of clinical concern at 2 o'clock, however, clinical followup is recommended. A follow-up ultrasound in 3 months is recommended. SUMMARY: There is no evidence of residual abscess. The area of palpable abnormality at 3 o'clock likely represents mastitis or an area of resolving edema/infection. Followup to document resolution is recommended. Lloyd her/ghulam:11/12/2019 12:21:08 Multiple national specialty organizations have released breast cancer screening guidelines for women at average risk for developing breast cancer - guidelines that are based on both evidence and opinion, yet differ on when to start and how often to screen for breast cancer. With representation from Breast Imaging, Internal Medicine, Women's Health, Family Medicine, and Medical/Surgical Oncology, the [facility] has carefully reviewed the data and reached the following consensus: 1) All women should engage in shared decision-making with their providers to decide when to start and how often to screen; 2) All women should have the opportunity to start screening mammography at age 40; 3) For women ages 45-55, we recommend annual screening mammograms; 4) For women ages 55 and over, we support both the transition from an annual to a biennial interval if this aligns more with patient's values and preferences, or continuation with annual screening; 5) All women should discuss with their providers when to stop screening mammograms. Marble Polisher(s): Tana Davenport, RT(R)(M), [employer]; Sulema Hirsch, RT, [employer] OVERALL STUDY BIRADS: 3 Probably benign finding - short term interval follow-up recommended Museum Archivist: Ghulam Transcribe Date/Time: Nov 12 2019 10:43A Dictated by : LLOYD KAY MD This examination was interpreted and the report reviewed and electronically signed by: LLOYD KAY MD on Nov 12 2019 12:21PM EST Normal [facility] Laboratory - Chemistry and C hemistry - challengeon 08-29-2018 Cholesterol [Mass/Vol] 131 mg/dL Normal 0 - 2 00.0 mg/dL [facility] Cholesterol in HDL [Mass/Vol] 36 mg/dL Normal 30.0 - 40.0 mg/dL [facility]; [facility] Cholesterol in LDL [Mass/Vol] 82 mg/dL Normal 50.0 - 130.0 mg/dL [facility]; [facility] Cholesterol non HDL [Mass/Vol] 94 mg/dL Normal [facility]; [facility] Cholesterol.total/Sonja sterol in HDL [Mass ratio] - Normal 0 - 5.0 [facility]; [facility] Glucose Glucometer (BldC) [Moles/Vol] 84 Normal 60 - 120 [facility]; [facility] Triglyceride [Mass/Vol] 61 mg/dL Normal 40 - 150 mg/dL [facility]; [facility] Laboratory - Chemistry and C hemistry - challengeon 05-22-2018 CRP [Mass/Vol] 0.5 mg/L Normal [facility]; [facility] Laboratory - Hematology and Cell countson 05-22-2018 ESR (Bld) [Velocity] 9 mm/h Normal 0 - 20 mm/h [facility]; [facility] Laboratory - Serology - non- microon 05-22-2018 Nuclear Ab IF (S) [Titer] 1:320 Abnormal [facility]; [facility], [facility] Nuclear Ab pattern IF (S) [Interp] Normal [facility]; [facility] Rheumatoid factor Qn [IU]/mL Normal [facility]; [facility] Laboratory - Chemistry and C hemistry - challengeon 12-28-2016 25-hydroxyvitamin D3 [Mass/Vol] 28 ng/mL Abnormal 30 - 100 ng/mL [facility]; [facility] Free T3 [Mass/Vol] 2.4 pg/mL Normal 2.3 - 4.2 pg/mL [facility], [facility] Free T4 [Mass/Vol] 1.0 ng/dL Normal 0.8 - 1.8 ng/dL [facility]; [facility] TSH Qn 0.82 m[IU]/L Normal 0.40 - 4.50 {mIU/L} [facility].; [employer] Laboratory - Hematology and Cell countson 12-28-2016 Basophils (Bld) [#/Vol] 20 {Cells}/uL Normal 0 - 200 {Cells}/uL [facility].; [place] [employer], [employer] Basophils/100 WBC (Bld) 1 % Normal 0 - 1 % [facility].; [facility] Eosinophils (Bld) [#/Vol] 90 {Cells}/uL Normal 15 - 500 {Cells}/uL [facility].; [place] [employer] Eosinophils/100 WBC (Bld) 2 % Normal 0 - 4 % [facility].; [employer] Erythrocyte distribution width (RBC) [Ratio] 12.4 % Normal 11.0 - 15.0 % [place] [facility].; [place] [employer], [employer] Hematocrit (Bld) [Volume fraction] 40.6 % Normal 35.0 - 45.0 % [place] [employer] [facility].; [employer], [facility]. Hemoglobin (Bld) [Mass/Vol] 13.6 g/dL Normal 11.7 - 15.5 g/dL [place] [facility].; [place] [employer], [facility]. Lymphocytes (Bld) [#/Vol] 1260 {Cells}/uL Normal 850 - 3900 {Cells}/uL [facility].; [place] [employer] [facility] Lymphocytes/100 WBC (Bld) 34 % Normal 12 - 47 % [place] [employer] [facility].; [employer], [employer]. MCH (RBC) [Entitic mass] 30.1 pg Normal 27.0 - 33.0 PG [place] [employer].; [employer], [employer]. MCHC (RBC) [Mass/Vol] 33.5 g/dL Normal 32.0 - 36.0 g/dL [place] [employer], [facility].; [employer], [employer]. MCV (RBC) [Entitic vol] 89.8 fL Normal 80.0 - 100.0 fL [employer]. Monocytes (Bld) [#/Vol] 330 {Cells}/uL Normal 20 0 - 950 {Cells}/uL [facility] [place] [employer]. Monocytes/100 WBC (Bld) 9 % Normal 4 - 12 % [facility]; [facility] Neutrophils (Bld) [#/Vol] 2060 {Cells}/uL Normal 1500 - 7800 {Cells}/uL [facility].; [place] [employer] Neutrophils/100 WBC (Bld) 55 % Normal 40 - 75 % [facility].; [place] [employer] Platelet mean volume (Bld) [Entitic vol] 9.0 fL Normal 7.5 - 12.5 fL [facility].; [facility] Platelets (Bld) [#/Vol] 213 10*3/uL Normal 140 - 400 10*3/uL [facility].; [place] [employer]. RBC (Bld) [#/Vol] 4.52 10*6/uL Normal 3.80 - 5.10 10*6/uL [facility].; [place] [employer]. WBC (Bld) [#/Vol] 3.8 10*3/uL Normal 3.8 - 10.8 10*3/uL [place] [employer].; [employer]. Laboratory - Microbiology an d Antimicrobial susceptibilityon 07-29-2015 FLUAV Ag IA Ql (Throat) Negative Normal [facility].; [place] [facility] Laboratory - Chemistry and C hemistry - challengeon 10-28-2014 Cobalamin (Vitamin B12) [Mass/Vol] 558 pg/mL Normal 200 - 1100 pg/mL [facility].; [place] [employer]. Ferritin [Mass/Vol] 31 ng/mL Normal 10 - 154 ng/mL [facility].; [place] [employer]. Folate [Mass/Vol] 18.5 ng/mL Normal [facility].; [place] [employer]. Iron [Mass/Vol] 87 ug/dL Normal 40 - 190 ug/dL [facility].; [place] [employer]. Iron binding capacity [Mass/Vol] 341 ug/dL Normal 250 - 450 ug/dL [facility].; [place] [facility] [facility] Iron saturation [Mass fraction] 26 % Normal 11 - 50 % [facility].; [place] [facility]. Laboratory - Chemistry and C hemistry - challengeon 06-29-2014 TSH Qn 0.67 m[IU]/L Normal 0.40 - 4.50 {mIU/L} [facility].; [place] [employer] [facility]. Laboratory - Hematology and Cell countson 06-29-2014 Basophils (Bld) [#/Vol] 20 {Cells}/uL Normal 0 - 200 {Cells}/uL [facility].; [place] [facility] Basophils/100 WBC (Bld) 0 % Normal [facility]; [facility] Eosinophils (Bld) [#/Vol] 290 {Cells}/uL Normal 15 - 500 {Cells}/uL [facility].; [place] [employer]. Eosinophils/100 WBC (Bld) 4 % Normal [facility]; [place] [employer] [facility] Erythrocyte distribution width (RBC) [Ratio] 12.5 % Normal 11.0 - 15.0 % [facility] ErT[facility].; [place] [employer] [facility]. Hematocrit (Bld) [Volume fraction] 40.0 % Normal 35.0 - 45.0 % [facility].; [place] [employer] [facility] Hemoglobin (Bld) [Mass/Vol] 13.4 g/dL Normal 11.7 - 15.5 g/dL [facility].; [place] [facility]. Lymphocytes (Bld) [#/Vol] 1070 {Cells}/uL Normal 850 - 3900 {Cells}/uL [facility].; [place] [employer]. Lymphocytes/100 WBC (Bld) 13 % Normal [facility].; [place] [employer] [facility]. MCH (RBC) [Entitic mass] 30.5 pg Normal 27.0 - 33.0 PG [facility].; [place] [employer], [employer]. MCHC (RBC) [Mass/Vol] 33.5 g/dL Normal 32.0 - 36.0 g/dL [facility].; [employer]. MCV (RBC) [Entitic vol] 91.3 fL Normal 80.0 - 100.0 fL [facility] ErT[facility].; [facility], [facility]. Monocytes (Bld) [#/Vol] 460 {Cells}/uL Normal 20 0 - 950 {Cells}/uL [facility].; [place] [employer]. Monocytes/100 WBC (Bld) 6 % Normal [facility].; [facility], [facility]. Neutrophils (Bld) [#/Vol] 6450 {Cells}/uL Normal 1500 - 7800 {Cells}/uL [facility] [employer] [facility].; [place] [employer], [employer]. Neutrophils/100 WBC (Bld) 78 % Normal [facility].; [place] [employer], [employer]. Platelets (Bld) [#/Vol] 241 10*3/uL Normal 140 - 400 10*3/uL [facility] [employer] [facility].; [place] [employer], [employer]. RBC (Bld) [#/Vol] 4.38 10*6/uL Normal 3.80 - 5.10 10*6/uL [place] [employer] [facility].; [employer], [employer]. WBC (Bld) [#/Vol] 8.3 10*3/uL Normal 3.8 - 10.8 10*3/uL [place] [employer], [employer].; [employer], [employer]. Laboratory - Microbiology an d Antimicrobial susceptibilityon 06-16-2014 S. pyogenes Ag EIA Ql (Throat) Negative Normal [place] [employer] [facility].; [employer] [facility]. No Panel Informationon 06-16 MONOSPOT TEST (IN HOUSE) Negative Normal [employer] [facility].; [employer]. Laboratory - Chemistry and C hemistry - challengeon 03-04-2013 Bilirubin Ql (U) Negative Normal [employer] [facility].; [employer]. Ketones Ql (U) Negative Normal [place] [employer].; [employer], [employer]. pH (U) 6.0 [pH] Normal [employer].; [employer]. Specific gravity (U) [Rel density] 1.010 Normal [employer]. Laboratory - Hematology and Cell countson 03-04-2013 Hemoglobin Ql (U) Moderate Abnormal [employer]. Laboratory - Microbiology an d Antimicrobial susceptibilityon 03-04-2013 Bacteria identified Cx Nom (Unsp spec) SEE NOTE Abnormal [employer]. Laboratory - Specimen inform ationon 03-04-2013 Appearance (U) Cloudy Abnormal [employer]. Color (U) Yellow Normal [employer].; [employer]. Specimen source Nom (Unsp spec) URINE-Clean Catch Normal [employer]; [employer]. Laboratory - Urinalysison Glucose Test strip (U) [Mass/Vol] Negative Normal [employer].; [employer]. Leukocyte esterase Test strip Ql (U) Negative Normal [employer].; [employer]. Nitrite Ql (U) Negative Normal [employer].; [employer]. Protein Ql (U) Negative Normal [employer].; [employer]. No Panel Informationon 03-04 UA - UROBILINOGEN 0.2 mg/dL Normal [employer].; [employer]. Vital Signs Date Time Vital Sign Value Performing Clinician Facility 07-23-2024 15:17-0400 Body mass index (BMI) [Ratio] 31.27 kg/m2 Mike Mccarthy APRN.[employer] Work Phone: [facility] 07-23-2024 15:17-0400 Body temperature 99.7 [degF] Mike Mccarthy APRN.[employer] Work Phone: [facility] 07-23-2024 15:17-0400 Body weight 93.3 kg Mike Mccarthy APRN.[employer] Work Phone: [facility] 07-23-2024 15:17-0400 Diastolic blood pressure 64 mm[Hg] Mike Mccarthy APRN.[employer] Work Phone: [facility] 07-23-2024 15:17-0400 Heart rate 102 /min Mike Mccarthy MECHANICAL APPRENTICE.[employer] Work Phone: [facility] 07-23-2024 15:17-0400 Respiratory rate 18 /min [facility] MECHANICAL APPRENTICE.[employer] Work Phone: [facility] 07-23-2024 15:17-0400 SaO2% (BldA) [Mass fraction] 98 % Mike Mccarthy MECHANICAL APPRENTICE.[employer] Work Phone: [facility] 07-23-2024 15:17-0400 Systolic blood pressure 102 mm[Hg] [facility] MECHANICAL APPRENTICE.[employer] Work Phone: [facility] 06-07-2024 12:13-0400 Body temperature 98.1 [degF] Iman Hernandezak DO Work Phone: [facility] 06-07-2024 12:13-0400 Diastolic blood pressure 66 mm[Hg] Iman Oracio DO Work Phone: [facility] 06-07-2024 12:13-0400 Heart rate 70 /min Iman Oracio DO Work Phone: [facility] 06-07-2024 12:13-0400 Respiratory rate 16 /min Iman Oracio DO Work Phone: [facility] 06-07-2024 12:13-0400 SaO2% (BldA) [Mass fraction] 99 % Iman Oracio DO Work Phone: [facility] 06-07-2024 12:13-0400 Systolic blood pressure 115 mm[Hg] Iman Oracio DO Work Phone: [facility] 06-06-2024 07:42-0400 Body height 172.7 cm Iman Oracio DO Work Phone: [facility] 06-06-2024 07:42-0400 Body mass index (BMI) [Ratio] 34.97 kg/m2 Iman Hernandezak DO Work Phone: [facility] 06-06-2024 07:42-0400 Body weight 104.33 kg Iman Narayanan DO Work Phone: [facility] 06-03-2024 13:06-0400 Body mass index (BMI) [Ratio] 36.37 kg/m2 Mary Herrera MECHANICAL APPRENTICE.[employer] Work Phone: [facility] 06-03-2024 13:06-0400 Body temperature 98.29 [degF] Mary Hrerera MECHANICAL APPRENTICE.[employer] Work Phone: [facility] 06-03-2024 13:06-0400 Body weight 108.5 kg Mary Herrera MECHANICAL APPRENTICE.[employer] Work Phone: [facility] 06-03-2024 13:06-0400 Diastolic blood pressure 78 mm[Hg] Mary Herrera MECHANICAL APPRENTICE.[employer] Work Phone: [facility] 06-03-2024 13:06-0400 Heart rate 75 /min Mary Herrera MECHANICAL APPRENTICE.[employer] Work Phone: [facility] 06-03-2024 13:06-0400 Respiratory rate 16 /min Mary Herrera MECHANICAL APPRENTICE.[employer] Work Phone: [facility] 06-03-2024 13:06-0400 SaO2% (BldA) [Mass fraction] 99 % Mary Herrera MECHANICAL APPRENTICE.[employer] Work Phone: [facility] 06-03-2024 13:06-0400 Systolic blood pressure 122 mm[Hg] Mary Herrera MECHANICAL APPRENTICE.[employer] Work Phone: [facility] 01-14-2024 13:33-0400 Body temperature 98.49 [degF] Khurram Athy PA-C Work Phone: [facility] 01-14-2024 13:33-0400 Body weight 98.1 kg Khurram Athy PA-C Work Phone: [facility] 01-14-2024 13:33-0400 Diastolic blood pressure 82 mm[Hg] Khurram Athy PA-C Work Phone: [facility] 01-14-2024 13:33-0400 Heart rate 90 /min Khurram Athy PA-C Work Phone: [facility] 01-14-2024 13:33-0400 Respiratory rate 20 /min Khurram Athy PA-C Work Phone: [facility] 01-14-2024 13:33-0400 SaO2% (BldA) [Mass fraction] 98 % Khurram Athy PA-C Work Phone: [facility] 01-14-2024 13:33-0400 Systolic blood pressure 116 mm[Hg] Khurram Athy PA-C Work Phone: [facility] 07-20-2023 10:40-0400 Body weight 95.71 kg Danae Plotlg MECHANICAL APPRENTICE.CNM Work Phone: [facility] 07-20-2023 10:40-0400 Diastolic blood pressure 64 mm[Hg] Danae Plotts MECHANICAL APPRENTICE.CNM Work Phone: [facility] 07-20-2023 10:40-0400 Systolic blood pressure 118 mm[Hg] Danae Plotts MECHANICAL APPRENTICE.CNM Work Phone: [facility] 06-10-2023 09:05-0400 Body temperature 97.39 [degF] Mike Pendbryson MECHANICAL APPRENTICE.[employer] Work Phone: [facility] 06-10-2023 09:05-0400 Body weight 94.8 kg Mike Mccarthy MECHANICAL APPRENTICE.[employer] Work Phone: [facility] 06-10-2023 09:05-0400 Diastolic blood pressure 66 mm[Hg] Mike Pendlebury MECHANICAL APPRENTICE.[employer] Work Phone: [facility] 06-10-2023 09:05-0400 Heart rate 90 /min Mike Pendlebury MECHANICAL APPRENTICE.[employer] Work Phone: [facility] 06-10-2023 09:05-0400 Respiratory rate 16 /min Mike Pendlebury MECHANICAL APPRENTICE.[employer] Work Phone: [facility] 06-10-2023 09:05-0400 SaO2% (BldA) [Mass fraction] 99 % Mike Pendlebury MECHANICAL APPRENTICE.[employer] Work Phone: [facility] 06-10-2023 09:05-0400 Systolic blood pressure 102 mm[Hg] Mike Pendlebury MECHANICAL APPRENTICE.[employer] Work Phone: [facility] 09-27-2022 19:33-0500 Body temperature 99 [degF] Mary Herrera MECHANICAL APPRENTICE.[employer] Work Phone: [facility] 09-27-2022 19:33-0500 Body weight 92.08 kg Mary Herrera MECHANICAL APPRENTICE.[employer] Work Phone: [facility] 09-27-2022 19:33-0500 Diastolic blood pressure 64 mm[Hg] Mary Herrera MECHANICAL APPRENTICE.[employer] Work Phone: [facility] 09-27-2022 19:33-0500 Heart rate 80 /min Mary Herrera MECHANICAL APPRENTICE.[employer] Work Phone: [facility] 09-27-2022 19:33-0500 Respiratory rate 16 /min Mary Herrera MECHANICAL APPRENTICE.[employer] Work Phone: [facility] 09-27-2022 19:33-0500 SaO2% (BldA) [Mass fraction] 99 % Mary Herrera MECHANICAL APPRENTICE.[employer] Work Phone: [facility] 09-27-2022 19:33-0500 Systolic blood pressure 110 mm[Hg] Mary Herrera MECHANICAL APPRENTICE.[employer] Work Phone: [facility] 09-10-2022 10:16-0500 Body temperature 99.5 [degF] Mike Pendlebury MECHANICAL APPRENTICE.[employer] Work Phone: [facility] 09-10-2022 10:16-0500 Body weight 92.99 kg Mike Pendlebury MECHANICAL APPRENTICE.[employer] Work Phone: [facility] 09-10-2022 10:16-0500 Diastolic blood pressure 62 mm[Hg] Mike Pendlebury MECHANICAL APPRENTICE.[employer] Work Phone: [facility] 09-10-2022 10:16-0500 Heart rate 96 /min Mike Mccarthy MECHANICAL APPRENTICE.[employer] Work Phone: [facility] 09-10-2022 10:16-0500 Respiratory rate 16 /min Mike Mccarthy MECHANICAL APPRENTICE.[employer] Work Phone: [facility] 09-10-2022 10:16-0500 SaO2% (BldA) [Mass fraction] 99 % Mike Mccarthy MECHANICAL APPRENTICE.[employer] Work Phone: [facility] 09-10-2022 10:16-0500 Systolic blood pressure 110 mm[Hg] Mike Mccarthy MECHANICAL APPRENTICE.[employer] Work Phone: [facility] 07-28-2022 10:57-0400 Body weight 94.17 kg Ellen Centeno MD Work Phone: [facility] 07-28-2022 10:57-0400 Diastolic blood pressure 70 mm[Hg] Ellen Centeno MD Work Phone: [facility] 07-28-2022 10:57-0400 Systolic blood pressure 116 mm[Hg] Ellen Centeno MD Work Phone: [facility] 05-10-2022 07:28-0400 Body temperature 98.2 [degF] Humera Centeno APRN.[employer] Work Phone: [facility] 05-10-2022 07:28-0400 Body weight 93.35 kg Humera Centeno APRN.COMMUNITY OUTREACH [employer]OCATE Work Phone: [facility] 05-10-2022 07:28-0400 Diastolic blood pressure 82 mm[Hg] Humera Centeno APRN.COMM[employer]ITY OUT[employer] Work Phone: [facility] 05-10-2022 07:28-0400 Heart rate 79 /min Humera Centeno APRN.[employer] OUTREACH [employer] Work Phone: [facility] 05-10-2022 07:28-0400 Respiratory rate 21 /min Humera Centeno APRN.COMM[employer] OUTREACH AD[employer]OC[employer] Work Phone: [facility] 05-10-2022 07:28-0400 SaO2% (BldA) [Mass fraction] 98 % Humera Centeno APRN.COMMUNITY OUTREACH ADVOC[employer] Work Phone: [facility] 05-10-2022 07:28-0400 Systolic blood pressure 120 mm[Hg] Humera Centeno APRN.COMMUNITY OUTREACH ADVOCATE Work Phone: [facility] 03-16-2022 16:02-0400 Body height 172.7 cm Oswaldo Bernal MD Work Phone: [facility] 03-16-2022 16:02-0400 Body weight 88.45 kg Oswaldo Bernal MD Work Phone: [facility] 03-16-2022 16:02-0400 Diastolic blood pressure 73 mm[Hg] Oswaldo Bernal MD Work Phone: [facility] 03-16-2022 16:02-0400 Heart rate 66 /min Oswaldo Bernal MD Work Phone: [facility] 03-16-2022 16:02-0400 Systolic blood pressure 119 mm[Hg] Oswaldo Bernal MD Work Phone: [facility] 06-23-2020 08:33-0400 Body height 175.26 cm Luis Roberts LPN [facility], [facility].; [facility], [facility]. 06-23-2020 08:33-0400 Body mass index (BMI) [Ratio] 28.35 kg/m2 Luis Roberts LPN [facility], [facility].; [facility], [facility]. 06-23-2020 08:33-0400 Body surface area Derived from formula 2.03 m2 Emmae Natalia Roberts LPN [facility], [facility].; [facility], [facility]. 06-23-2020 08:33-0400 Body weight 87.09 kg Emmae Natalia Roberts LPN [facility], [facility].; [place] [facility], [facility]. 06-23-2020 08:33-0400 Diastolic blood pressure 77 mm[Hg] Emmae Natalia Roberts LPN [facility], [facility].; [facility], [facility]. Comment on above: Patient Position: Sitting; Cuff Location : Right Arm; Cuff Size: Standard 06-23-2020 08:33-0400 Heart rate 89 /min Neilee L Vess SECURITY TEST ENGINEER [place] [facility], [employer]. Comment on above: Pattern: Regular 06-23-2020 08:33-0400 Systolic blood pressure 129 mm[Hg] Neilee L Vess SECURITY TEST ENGINEER [place] [employer]. Comment on above: Patient Position: Sitting; Cuff Location : Right Arm; Cuff Size: Standard 10-24-2019 14:48-0500 Body height 175.26 cm Yanique Day [facility] [employer]. 10-24-2019 14:48-0500 Body mass index (BMI) [Ratio] 27.17 kg/m2 Yanique Day [facility] [employer]. 10-24-2019 14:48-0500 Body surface area Derived from formula 1.99 m2 Yanique Day [facility] [employer]. 10-24-2019 14:48-0500 Body weight 83.46 kg [facility] [employer]. 10-24-2019 14:48-0500 Diastolic blood pressure 75 mm[Hg] Yanique Day [facility] [employer]. Comment on above: Patient Position: Sitting; Cuff Location : Left Arm; Cuff Size: Standard 10-24-2019 14:48-0500 Heart rate 80 /min Yanique Day [facility] [employer]. Comment on above: Pattern: Regular 10-24-2019 14:48-0500 Systolic blood pressure 118 mm[Hg] [facility].; [employer]. Comment on above: Patient Position: Sitting; Cuff Location : Left Arm; Cuff Size: Standard 07-28-2019 14:26-0400 Body height 175.26 cm Neilee L Vess SECURITY TEST ENGINEER [place] [employer], [employer]. 07-28-2019 14:26-0400 Body mass index (BMI) [Ratio] 29.68 kg/m2 Neilee Natalia Vess SECURITY TEST ENGINEER [employer]. 07-28-2019 14:26-0400 Body surface area Derived from formula 2.07 m2 Neilee L Vess SECURITY TEST ENGINEER [employer]. 07-28-2019 14:260400 Body weight 91.17 kg Neyuee Natalia Roberts SECURITY TEST ENGINEER [employer]. 07-28-2019 14:26-0400 Diastolic blood pressure 71 mm[Hg] Neilee L Vess SECURITY TEST ENGINEER [employer], [employer]. Comment on above: Patient Position: Sitting; Cuff Location : Right Arm; Cuff Size: Standard 07-28-2019 14:26-0400 Heart rate 73 /min [place] Natalia Roberts SECURITY TEST ENGINEER [employer], [employer]. Comment on above: Pattern: Regular 07-28-2019 14:26-0400 Systolic blood pressure 118 mm[Hg] Neyuee L Armando SECURITY TEST ENGINEER [employer], [employer]. Comment on above: Patient Position: Sitting; Cuff Location : Right Arm; Cuff Size: Standard 05-15-2019 09:120400 Body height 175.26 cm Emmae Natalia Roberts SECURITY TEST ENGINEER [employer], [employer]. 05-15-2019 09:12-0400 Body mass index (BMI) [Ratio] 27.02 kg/m2 Neilee L Armando SECURITY TEST ENGINEER [employer], [employer]. 05-15-2019 09:120400 Body surface area Derived from formula 1.99 m2 Emmae Natalia Roberts SECURITY TEST ENGINEER [employer], [employer]. 05-15-2019 09:12-0400 Body temperature 98.3 [degF] Tongbanjieilee L Armando SECURITY TEST ENGINEER [employer].; [employer]. Comment on above: Method: Tympanic 05-15-2019 09:12-0400 Body weight 83.01 kg [place] Natalia Roberts SECURITY TEST ENGINEER [employer], [employer]. 05-15-2019 09:12-0400 Diastolic blood pressure 70 mm[Hg] Neilee L Vess SECURITY TEST ENGINEER [employer].; [employer]. Comment on above: Patient Position: Sitting; Cuff Location : Right Arm; Cuff Size: Standard 05-15-2019 09:12-0400 Heart rate 88 /min Neilee L Vess SECURITY TEST ENGINEER [employer]. Comment on above: Pattern: Regular 05-15-2019 09:12-0400 Systolic blood pressure 125 mm[Hg] Neilee L Vess SECURITY TEST ENGINEER [employer].; [employer]. Comment on above: Patient Position: Sitting; Cuff Location : Right Arm; Cuff Size: Standard 02-28-2019 09:20-0400 Body height 175.26 cm Rosy Ortiz SECURITY TEST ENGINEER Work Phone: [employer].; [employer]. 02-28-2019 09:20-0400 Body mass index (BMI) [Ratio] 25.7 kg/m2 Rosy Diana SECURITY TEST ENGINEER Work Phone: [employer].; [employer]. 02-28-2019 09:20-0400 Body surface area Derived from formula 1.95 m2 Rosy Diana SECURITY TEST ENGINEER Work Phone: [employer].; [employer]. 02-28-2019 09:20-0400 Body temperature 99 [degF] Rosy Sharify SECURITY TEST ENGINEER Work Phone: [employer].; [employer]. Comment on above: Method: Tympanic 02-28-2019 09:20-0400 Body weight 78.93 kg Rosy Diana SECURITY TEST ENGINEER Work Phone: [employer].; [employer]. 02-28-2019 09:20-0400 Diastolic blood pressure 66 mm[Hg] Rosy Diana SECURITY TEST ENGINEER Work Phone: [employer].; [employer]. Comment on above: Patient Position: Sitting; Cuff Location : Left Arm; Cuff Size: Standard 02-28-2019 09:20-0400 Heart rate 77 /min Rosy Ortiz LPN Work Phone: [employer].; [employer]. Comment on above: Pattern: Regular 02-28-2019 09:20-0400 Systolic blood pressure 122 mm[Hg] Rosy Ortiz LPN Work Phone: [employer].; [employer]. Comment on above: Patient Position: Sitting; Cuff Location : Left Arm; Cuff Size: Standard 12-23-2018 09:02-0400 Body height 175.26 cm Suki Ca RN [employer].; [employer]. 12-23-2018 09:02-0400 Body mass index (BMI) [Ratio] 25.84 kg/m2 Suki Ca RN [employer].; [employer] 12-23-2018 09:02-0400 Body surface area Derived from formula 1.95 m2 Suki Ca RN [employer].; [employer]. 12-23-2018 09:02-0400 Body temperature 99 [degF] Suki Ca RN [employer].; [employer]. Comment on above: Method: Tympanic 12-23-2018 09:02-0400 Body weight 79.38 kg Suki Ca RN [employer].; [employer] 12-23-2018 09:02-0400 Diastolic blood pressure 75 mm[Hg] Suki Ca RN [employer].; [employer]. Comment on above: Patient Position: Sitting; Cuff Location : Left Arm; Cuff Size: Standard 12-23-2018 09:02-0400 Heart rate 72 /min Suki Ca RN [employer].; [employer]. Comment on above: Pattern: Regular 12-23-2018 09:02-0400 Systolic blood pressure 123 mm[Hg] Suki Ca RN [employer].; [employer]. Comment on above: Patient Position: Sitting; Cuff Location : Left Arm; Cuff Size: Standard 08-29-2018 08:20-0500 Body height 175.26 cm Suki Ca RN [employer].; [employer]. 08-29-2018 08:20-0500 Body mass index (BMI) [Ratio] 25.7 kg/m2 Suki Ca RN [place] [employer] 08-29-2018 08:20-0500 Body surface area Derived from formula 1.95 m2 Suki Ca RN [place] [employer] 08-29-2018 08:20-0500 Body temperature 98.6 [degF] Suki Ca RN [employer].; [employer]. Comment on above: Method: Tympanic 08-29-2018 08:20-0500 Body weight 78.93 kg Suki Ca RN [employer].; [employer]. 08-29-2018 08:20-0500 Diastolic blood pressure 68 mm[Hg] Suki Ca RN [employer].; [employer]. Comment on above: Patient Position: Sitting; Cuff Location : Left Arm; Cuff Size: Standard 08-29-2018 08:20-0500 Heart rate 73 /min Suki Ca RN [employer].; [employer]. Comment on above: Pattern: Regular 08-29-2018 08:20-0500 Systolic blood pressure 109 mm[Hg] Suki Ca RN [employer].; [employer]. Comment on above: Patient Position: Sitting; Cuff Location : Left Arm; Cuff Size: Standard 05-22-2018 14:45-0400 Body height 175.26 cm Suki Ca RN [employer].; [employer]. 05-22-2018 14:45-0400 Body mass index (BMI) [Ratio] 25.99 kg/m2 Suki Ca RN [employer].; [employer]. 05-22-2018 14:45-0400 Body surface area Derived from formula 1.96 m2 Suki Ca RN [employer].; [employer]. 05-22-2018 14:45-0400 Body temperature 97.9 [degF] Suki Ca RN [employer].; [employer]. Comment on above: Method: Tympanic 05-22-2018 14:45-0400 Body weight 79.83 kg Suki Ca RN [employer].; [employer]. 05-22-2018 14:45-0400 Diastolic blood pressure 79 mm[Hg] Suki Ca RN [employer].; [employer]. Comment on above: Patient Position: Sitting; Cuff Location : Left Arm; Cuff Size: Standard 05-22-2018 14:45-0400 Heart rate 62 /min Suki Ca RN [employer].; [employer]. Comment on above: Pattern: Regular 05-22-2018 14:45-0400 Systolic blood pressure 120 mm[Hg] Suki Ca RN [employer].; [employer]. Comment on above: Patient Position: Sitting; Cuff Location : Left Arm; Cuff Size: Standard 10-22-2017 18:39-0500 Body height 175.26 cm Suki Ca RN [employer].; [employer]. 10-22-2017 18:39-0500 Body mass index (BMI) [Ratio] 26.17 kg/m2 Suki Ca RN [employer].; [employer]. 10-22-2017 18:39-0500 Body surface area Derived from formula 1.96 m2 Suki Ca RN [employer].; [employer]. 10-22-2017 18:39-0500 Body temperature 98.5 [degF] Suki Ca RN [employer].; [employer]. Comment on above: Method: Tympanic 10-22-2017 18:39-0500 Body weight 80.38 kg Suki Ca RN [employer].; [employer]. 10-22-2017 18:39-0500 Diastolic blood pressure 66 mm[Hg] Suki Ca RN [employer].; [employer]. Comment on above: Patient Position: Sitting; Cuff Location : Left Arm; Cuff Size: Standard 10-22-2017 18:39-0500 Heart rate 66 /min Suki Ca RN [employer].; [employer]. Comment on above: Pattern: Regular 10-22-2017 18:39-0500 Systolic blood pressure 114 mm[Hg] Suki Ca RN [employer].; [employer]. Comment on above: Patient Position: Sitting; Cuff Location : Left Arm; Cuff Size: Standard 12-28-2016 08:21-0400 Body height 172.72 cm Suki Ca RN [employer].; [employer]. 12-28-2016 08:21-0400 Body mass index (BMI) [Ratio] 24.92 kg/m2 Suki Ca RN [place] [employer]. 12-28-2016 08:21-0400 Body surface area Derived from formula 1.88 m2 Suki Ca RN [employer].; [employer]. 12-28-2016 08:21-0400 Body temperature 98.9 [degF] Suki Ca RN [employer].; [employer]. Comment on above: Method: Tympanic 12-28-2016 08:21-0400 Body weight 74.35 kg Suki Ca RN [employer].; [employer]. 12-28-2016 08:21-0400 Diastolic blood pressure 67 mm[Hg] Suki Ca RN [employer].; [employer]. Comment on above: Patient Position: Sitting; Cuff Location : Left Arm; Cuff Size: Standard 12-28-2016 08:21-0400 Heart rate 69 /min Suki Ca RN [employer].; [employer]. Comment on above: Pattern: Regular 12-28-2016 08:21-0400 Systolic blood pressure 114 mm[Hg] Suki Ca RN [employer].; [employer]. Comment on above: Patient Position: Sitting; Cuff Location : Left Arm; Cuff Size: Standard 10-27-2016 09:52-0500 Body height 172.72 cm Luke Janeth PA-C Work Phone: [employer]; [employer]. 10-27-2016 09:52-0500 Body mass index (BMI) [Ratio] 24.63 kg/m2 Luke Janeth PA-C Work Phone: [employer].; [employer]. 10-27-2016 09:52-0500 Body surface area Derived from formula 1.87 m2 Luke Janeth PA-C Work Phone: [employer]; [employer]. 10-27-2016 09:52-0500 Body temperature 98.8 [degF] Luke Janeth PA-C Work Phone: [employer]; [employer]. Comment on above: Method: Tympanic 10-27-2016 09:52-0500 Body weight 73.48 kg Luke Janeth PA-C Work Phone: [employer].; [employer]. 10-27-2016 09:52-0500 Diastolic blood pressure 77 mm[Hg] Luke Janeth PA-C Work Phone: [employer]; [employer]. Comment on above: Patient Position: Sitting; Cuff Location : Right Arm; Cuff Size: Standard 10-27-2016 09:52-0500 Heart rate 72 /min Luke Janeth PA-C Work Phone: [employer].; [employer]. Comment on above: Pattern: Regular 10-27-2016 09:52-0500 Systolic blood pressure 127 mm[Hg] Luke Janeth PA-C Work Phone: [employer].; [employer]. Comment on above: Patient Position: Sitting; Cuff Location : Right Arm; Cuff Size: Standard 08-25-2016 10:15-0500 Body height 172.72 cm Luke Janeth PA-C Work Phone: [employer]; [employer] 08-25-2016 10:15-0500 Body mass index (BMI) [Ratio] 24.33 kg/m2 Luke Janeth PA-C Work Phone: [employer]; [employer]. 08-25-2016 10:15-0500 Body surface area Derived from formula 1.86 m2 Luke Janeth PA-C Work Phone: [employer]; [employer]. 08-25-2016 10:15-0500 Body temperature 99.4 [degF] Luke Janeth PA-C Work Phone: [employer]; [employer]. Comment on above: Method: Tympanic 08-25-2016 10:15-0500 Body weight 72.58 kg Luke Janeth PA-C Work Phone: [employer]; [employer]. 08-25-2016 10:15-0500 Diastolic blood pressure 70 mm[Hg] Luke Janeth PA-C Work Phone: [employer]; [employer] Comment on above: Patient Position: Sitting; Cuff Location : Right Arm; Cuff Size: Standard 08-25-2016 10:15-0500 Heart rate 63 /min Luke Janeth PA-C Work Phone: [employer]; [employer] Comment on above: Pattern: Regular 08-25-2016 10:15-0500 Systolic blood pressure 112 mm[Hg] Luke Janeth PA-C Work Phone: [employer]; [employer] Comment on above: Patient Position: Sitting; Cuff Location : Right Arm; Cuff Size: Standard 07-18-2016 13:16-0400 Body weight 73.94 kg Luis Roberts LPN [employer]; [employer]. 07-18-2016 13:16-0400 Diastolic blood pressure 67 mm[Hg] Neyuee L Vess SECURITY TEST ENGINEER [employer], [employer]. Comment on above: Patient Position: Sitting; Cuff Location : Right Arm; Cuff Size: Standard 07-18-2016 13:16-0400 Heart rate 81 /min Neilee L Vess SECURITY TEST ENGINEER [employer]. Comment on above: Pattern: Regular 07-18-2016 13:16-0400 Systolic blood pressure 119 mm[Hg] Neilee L Vess SECURITY TEST ENGINEER [employer], [employer] Comment on above: Patient Position: Sitting; Cuff Location : Right Arm; Cuff Size: Standard 07-29-2015 10:280400 Body height 172.72 cm Suki Ca RN [employer], [employer]. 07-29-2015 10:280400 Body mass index (BMI) [Ratio] 24.48 kg/m2 Suki Ca RN [place] [employer], [employer], [employer] 07-29-2015 10:280400 Body surface area Derived from formula 1.86 m2 Suki Ca RN [place] [employer], [employer], [employer] 07-29-2015 10:280400 Body temperature 100.7 [degF] Suki Ca RN [employer], [employer]. Comment on above: Method: Tympanic 07-29-2015 10:280400 Body weight 73.03 kg Suki Ca RN [employer], [employer]. 07-29-2015 10:280400 Diastolic blood pressure 73 mm[Hg] Suki Ca RN [employer].; [employer]. Comment on above: Patient Position: Sitting; Cuff Location : Left Arm; Cuff Size: Standard 07-29-2015 10:28-0400 Heart rate 118 /min Suki Ca RN [employer].; [employer]. Comment on above: Pattern: Regular 07-29-2015 10:28-0400 Systolic blood pressure 124 mm[Hg] Suki Ca RN [employer].; [employer]. Comment on above: Patient Position: Sitting; Cuff Location : Left Arm; Cuff Size: Standard 07-28-2015 14:07-0400 Body height 172.72 cm Suki Ca RN [employer]. 07-28-2015 14:07-0400 Body mass index (BMI) [Ratio] 24.48 kg/m2 Suki Ca RN [employer].; [employer]. 07-28-2015 14:07-0400 Body surface area Derived from formula 1.86 m2 Suki Ca RN [employer].; [employer]. 07-28-2015 14:07-0400 Body temperature 98.1 [degF] Suki Ca RN [employer].; [employer]. Comment on above: Method: Tympanic 07-28-2015 14:070400 Body weight 73.03 kg Suki Ca RN [employer].; [employer]. 07-28-2015 14:07-0400 Diastolic blood pressure 70 mm[Hg] Suki Ca RN [employer].; [employer]. Comment on above: Patient Position: Sitting; Cuff Location : Left Arm; Cuff Size: Standard 07-28-2015 14:07-0400 Heart rate 72 /min Suki Ca RN [employer].; [employer]. Comment on above: Pattern: Regular 07-28-2015 14:07-0400 Systolic blood pressure 119 mm[Hg] Suki Ca RN [employer].; [employer]. Comment on above: Patient Position: Sitting; Cuff Location : Left Arm; Cuff Size: Standard 01-27-2015 12:06-0400 Body height 172.72 cm Suki Ca RN [employer].; [employer]. 01-27-2015 12:06-0400 Body mass index (BMI) [Ratio] 23.87 kg/m2 Suki Ca RN [place] [facility] [employer]. 01-27-2015 12:06-0400 Body surface area Derived from formula 1.84 m2 Suki Ca RN [place] [facility] [employer]. 01-27-2015 12:06-0400 Body temperature 98.8 [degF] Suki Ca RN [place] [facility] [employer]. Comment on above: Method: Tympanic 01-27-2015 12:06-0400 Body weight 71.22 kg Suki Ca RN [place] [facility] [employer]. 01-27-2015 12:06-0400 Diastolic blood pressure 77 mm[Hg] Suki Ca RN [place] [employer]. Comment on above: Patient Position: Sitting; Cuff Location : Left Arm; Cuff Size: Standard 01-27-2015 12:06-0400 Heart rate 60 /min Suki Ca RN [place] [facility] [employer]. Comment on above: Pattern: Regular 01-27-2015 12:06-0400 Systolic blood pressure 125 mm[Hg] Suki Ca RN [place] [employer]. Comment on above: Patient Position: Sitting; Cuff Location : Left Arm; Cuff Size: Standard 10-28-2014 15:190500 Body height 172.72 cm Suki Ca RN [place] [facility] [employer] 10-28-2014 15:19-0500 Body mass index (BMI) [Ratio] 24.33 kg/m2 Suki Ca RN [place] [facility] [employer]. 10-28-2014 15:190500 Body surface area Derived from formula 1.86 m2 Suki Ca RN [place] [employer]. 10-28-2014 15:19-0500 Body temperature 99.3 [degF] Suki Ca RN [place] [employer]. Comment on above: Method: Tympanic 10-28-2014 15:190500 Body weight 72.58 kg Suki Ca RN [employer]. 10-28-2014 15:19-0500 Diastolic blood pressure 75 mm[Hg] Suki Ca RN [place] [employer]. Comment on above: Patient Position: Sitting; Cuff Location : Left Arm; Cuff Size: Standard 10-28-2014 15:19-0500 Heart rate 70 /min Suki Ca RN [place] [employer]. Comment on above: Pattern: Regular 10-28-2014 15:19-0500 Systolic blood pressure 123 mm[Hg] Suki Ca RN [employer].; [employer]. Comment on above: Patient Position: Sitting; Cuff Location : Left Arm; Cuff Size: Standard 06-29-2014 09:45-0400 Body height 172.72 cm Suki Ca RN [employer]. 06-29-2014 09:45-0400 Body mass index (BMI) [Ratio] 22.2 kg/m2 Suki Ca RN [place] [employer]. 06-29-2014 09:45-0400 Body surface area Derived from formula 1.79 m2 Suki Ca RN [place] [employer]. 06-29-2014 09:45-0400 Body temperature 98.4 [degF] Suki Ca RN [employer].; [employer]. Comment on above: Method: Tympanic 06-29-2014 09:45-0400 Body weight 66.23 kg Suki Ca RN [employer].; [employer]. 06-29-2014 09:45-0400 Diastolic blood pressure 54 mm[Hg] Suki Ca RN [employer].; [employer]. Comment on above: Patient Position: Sitting; Cuff Location : Left Arm; Cuff Size: Standard 06-29-2014 09:45-0400 Systolic blood pressure 120 mm[Hg] Suki Ca RN [employer].; [employer]. Comment on above: Patient Position: Sitting; Cuff Location : Left Arm; Cuff Size: Standard 06-16-2014 10:35-0400 Body temperature 99 [degF] Neilee L Vess SECURITY TEST ENGINEER [employer].; [employer]. Comment on above: Method: Tympanic 06-16-2014 10:35-0400 Body weight 68.95 kg Neilee L Vess SECURITY TEST ENGINEER [employer].; [employer]. 06-16-2014 10:35-0400 Diastolic blood pressure 86 mm[Hg] Neilee L Vess SECURITY TEST ENGINEER [employer].; [employer]. Comment on above: Patient Position: Sitting; Cuff Location : Left Arm; Cuff Size: Standard 06-16-2014 10:35-0400 Heart rate 100 /min Neilee L Vess SECURITY TEST ENGINEER [employer].; [employer]. Comment on above: Pattern: Regular 06-16-2014 10:35-0400 Systolic blood pressure 140 mm[Hg] Neilee L Vess SECURITY TEST ENGINEER [employer].; [employer]. Comment on above: Patient Position: Sitting; Cuff Location : Left Arm; Cuff Size: Standard 05-27-2014 12:37-0400 Body temperature 98.7 [degF] Neilee L Vess SECURITY TEST ENGINEER [employer].; [employer]. Comment on above: Method: Tympanic 05-27-2014 12:37-0400 Body weight 68.04 kg Neilee L Vess SECURITY TEST ENGINEER [employer].; [employer]. 05-27-2014 12:37-0400 Diastolic blood pressure 69 mm[Hg] Neilee L Vess SECURITY TEST ENGINEER [employer].; [employer]. Comment on above: Patient Position: Sitting; Cuff Location : Right Arm; Cuff Size: Standard 05-27-2014 12:37-0400 Heart rate 63 /min Neilee L Vess SECURITY TEST ENGINEER [employer].; [employer]. Comment on above: Pattern: Regular 05-27-2014 12:37-0400 Systolic blood pressure 116 mm[Hg] Neilee L Vess SECURITY TEST ENGINEER [employer].; [employer]. Comment on above: Patient Position: Sitting; Cuff Location : Right Arm; Cuff Size: Standard 11-14-2013 10:23-0500 Body temperature 98 [degF] Luke Janeth PA-C Work Phone: [facility]; [employer]. Comment on above: Method: Tympanic 11-14-2013 10:23-0500 Body weight 69.57 kg Luke Janeth PA-C Work Phone: [facility]; [employer]. 11-14-2013 10:23-0500 Diastolic blood pressure 75 mm[Hg] Luke Janeth PA-C Work Phone: [employer]; [employer]. Comment on above: Patient Position: Sitting; Cuff Location : Left Arm; Cuff Size: Standard 11-14-2013 10:23-0500 Heart rate 64 /min Luke Janeth PA-C Work Phone: [employer]; [employer]. Comment on above: Pattern: Regular 11-14-2013 10:23-0500 Inhaled oxygen concentration 21 % Luke Janeth PA-C Work Phone: [employer]; [employer]. Comment on above: Room air 11-14-2013 10:23-0500 SaO2% (BldA) [Mass fraction] 99 % Luke Janeth PA-C Work Phone: [employer]; [employer]. 11-14-2013 10:23-0500 Systolic blood pressure 116 mm[Hg] Luke Janeth PA-C Work Phone: [employer].; [employer]. Comment on above: Patient Position: Sitting; Cuff Location : Left Arm; Cuff Size: Standard 10-13-2013 10:20-0500 Body height 172.72 cm Suki Ca RN [facility] [employer]. 10-13-2013 10:20-0500 Body mass index (BMI) [Ratio] 23.26 kg/m2 Suki Ca RN [facility] [employer]. 10-13-2013 10:20-0500 Body surface area Derived from formula 1.82 m2 Suki Ca RN [facility] [employer]. 10-13-2013 10:20-0500 Body temperature 97.8 [degF] Suki Ca RN [employer] [facility] [employer]. Comment on above: Method: Tympanic 10-13-2013 10:20-0500 Body weight 69.4 kg Suki Ca RN [employer] [facility] [employer]. 10-13-2013 10:20-0500 Diastolic blood pressure 78 mm[Hg] Suki Ca RN [employer].; [employer]. Comment on above: Patient Position: Sitting; Cuff Location : Left Arm; Cuff Size: Standard 10-13-2013 10:20-0500 Heart rate 77 /min Suki Ca RN [employer] [facility] [employer]. Comment on above: Pattern: Regular 10-13-2013 10:20-0500 Systolic blood pressure 121 mm[Hg] Suki Ca RN [employer].; [employer]. Comment on above: Patient Position: Sitting; Cuff Location : Left Arm; Cuff Size: Standard 03-04-2013 15:35-0400 Body temperature 99.2 [degF] Neilee L Vess SECURITY TEST ENGINEER [employer].; [employer]. Comment on above: Method: Tympanic 03-04-2013 15:35-0400 Body weight 67.13 kg Neilee L Vess SECURITY TEST ENGINEER [employer].; [employer]. 03-04-2013 15:35-0400 Diastolic blood pressure 80 mm[Hg] Neilee L Vess SECURITY TEST ENGINEER [employer].; [employer]. Comment on above: Patient Position: Sitting; Cuff Location : Left Arm; Cuff Size: Standard 03-04-2013 15:35-0400 Heart rate 64 /min Neilee L Vess SECURITY TEST ENGINEER [facility]. Comment on above: Pattern: Regular 03-04-2013 15:35-0400 Systolic blood pressure 132 mm[Hg] Luis Roberts LPN [facility].; [facility]. Comment on above: Patient Position: Sitting; Cuff Location : Left Arm; Cuff Size: Standard Respiratory rate Suki [facility] Encounters Encounter Date Encounter Type Care Provider Facility Start: 07-23-2024 End: 07-23-2024 Office outpatient visit 15 minutes Mike Mccarthy APRN.COMMUNITY OUTREACH ADVOCATE Work Phone: [facility] Comment on above: Viral illness (Prima ry Dx) Start: 06-25-2024 [facility] Facility :[facility] Start: 06-23-2024 End: 06-23-2024 ambulatory [facility] Start: 06-16-2024 End: 06-16-2024 [facility] Start: 06-09-2024 End: 06-09-2024 ambulatory [facility] Start: 06-06-2024 End: 06-07-2024 Evaluation and management of inpatient Iman Narayanan Work Phone: [facility] Unit [facility] Comment on above: Monochorionic diamni otic twin gestation in third trimester (Primary Dx); contractions Start: 06-03-2024 End: 06-03-2024 Patient encounter procedure Mary Herrera APRN.COMMUNITY OUTREACH ADVOCATE Work Phone: [facility] Comment on above: Foot pain, right (Pr imary Dx) Start: 06-03-2024 End: 06-03-2024 ambulatory [facility] Facility:[facility] Start: 06-03-2024 End: 06-03-2024 Subsequent hospital visit by physician Sandi [facility] Work Phone: Radiology Comment on above: Foot pain, right [M7 9.671] Start: 06-03-2024 End: 06-03-2024 ambulatory KAYLA Chatman [facility] Start: 05-26-2024 End: 05-26-2024 ambulatory KAYLA Chatman [facility] Start: 05-12-2024 End: 05-12-2024 ambulatory MEI D [facility] Start: 05-12-2024 End: 05-12-2024 ambulatory [facility] Start: 04-28-2024 End: 04-28-2024 ambulatory KAYLA Chatman [facility] Start: 04-15-2024 End: 04-15-2024 ambulatory MARSTON Oc [facility] Start: 04-14-2024 End: 04-14-2024 ambulatory [facility] Start: 03-31-2024 End: 03-31-2024 ambulatory [facility] Start: 03-20-2024 End: 03-20-2024 ambulatory KAYLA A [facility] Start: 03-05-2024 End: 03-05-2024 ambulatory KAYLA A [facility] Start: 02-26-2024 ambulatory [facility] Start: 02-20-2024 End: 02-20-2024 ambulatory [facility] Start: 01-14-2024 End: 01-14-2024 ambulatory [facility] Facility:[facility] Start: 01-14-2024 End: 01-14-2024 Patient encounter procedure Khurram Romero PA-C Work Phone: [facility] Comment on above: Bacterial sinusitis (Primary Dx) Start: 10-23-2023 ambulatory [facility] Facility :[facility] Start: 10-23-2023 ambulatory [facility] Facility :[facility] Start: 10-11-2023 End: 10-11-2023 ambulatory [facility] Facility:[facility] Start: 09-28-2023 End: 09-28-2023 ambulatory [facility] Facility:[facility] Start: 08-04-2023 ambulatory ABDON DRUMMOND Facility: [id number] Start: 08-04-2023 End: 08-04-2023 Subsequent hospital visit by physician [facility] Work Phone: [facility] Comment on above: Other cervical disc displacement, 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] Start: 07-26-2023 End: 07-26-2023 [facility] Facility:[facility] Start: 07-20-2023 End: 07-20-2023 ambulatory [facility] Facility:[facility] Start: 07-20-2023 End: 07-20-2023 Patient encounter procedure Danae Marc MECHANICAL APPRENTICE.CNM Work Phone: OB/Gynecology Comment on above: Female infertility ( Primary Dx); Irregular periods/menstrual cycles Start: 07-09-2023 [facility] Facility :[facility] Start: 07-02-2023 ambulatory Danae sanders MECHANICAL APPRENTICE.CNM Work Phone: OB/Gynecology Comment on above: Hormones Start: 06-10-2023 End: 06-10-2023 [facility] Facility:[facility] Start: 06-10-2023 End: 06-10-2023 Office outpatient visit 25 minutes Mike Mccarthy APRN.CNP Work Phone: [facility] Comment on above: Chronic neck and iveth k pain (Primary Dx) Start: 02-21-2023 End: 02-21-2023 [facility] Work Phone: Rad[facility] Comment on above: Cyst of ovary, unspe cified laterality [N83.209] Start: 09-27-2022 End: 09-27-2022 Patient encounter procedure Mary Herrera MECHANICAL APPRENTICEMAHNAZ Work Phone: [facility] Comment on above: Sinusitis, unspecifi ed chronicity, unspecified location (Primary Dx) Start: 09-10-2022 End: 09-10-2022 Patient encounter procedure Mike Mccarthy APRN.CNP Work Phone: [facility] Comment on above: Sore throat (Primary Dx); Viral illness Start: 08-01-2022 End: 08-01-2022 ambulatory Ob Ul[facility] Work Phone: OB/Gynecology Start: 08-01-2022 End: 08-01-2022 Patient encounter procedure Rupa Nieves MD Work Phone: OB/Gynecology Comment on above: Pelvic pain in femal e (Primary Dx) Start: 07-31-2022 End: 07-31-2022 Patient encounter procedure Zabrina Krishnan MD Work Phone: OB/Gynecology Comment on above: OPENED IN ERROR (Celia karine Dx) Start: 07-28-2022 End: 07-28-2022 Patient encounter procedure Ellen Centeno MD Work Phone: OB/Gynecology Comment on above: Pelvic pain in femal e (Primary Dx); Screening for cervical cancer; Special screening examination for human papillomavirus (HPV) Start: 05-10-2022 End: 05-10-2022 Subsequent hospital visit by physician Xr [facility] Work Phone: Radiology Comment on above: Acute cough [R05.1] Start: 05-10-2022 End: 05-10-2022 Patient encounter procedure Humera Centeno APRN.[facility] Work Phone: [facility] Comment on above: Acute cough (Primary Dx); Sore throat Start: 03-16-2022 End: 03-16-2022 Patient encounter procedure Oswaldo Bernal MD Work Phone: Neurology Comment on above: Myofascial pain dysf unction syndrome (Primary Dx); Disturbance of skin sensation; Small fiber neuropathy; Muscle ache; Malaise and fatigue; Central sensitization to pain; Vitamin E deficiency Start: 08-23-2020 Patient requested procedure Oswaldo Bernal MD Work Phone: [facility] Work Phone: Start: 07-20-2020 End: 07-20-2020 Medication Ivan Fowler PA-C Work Phone: [facility]. Start: 06-23-2020 End: 06-23-2020 Patient encounter procedure Luke Janeth PA-C Work Phone: [employer]. Start: 10-24-2019 End: 10-24-2019 Office outpatient visit 15 minutes Luke Janeth PA-C Work Phone: [employer]. Start: 10-14-2019 End: 10-14-2019 Telephone follow-up Luke Janeth PA-C Work Phone: [employer]. Start: 09-23-2019 End: 09-23-2019 Telephone follow-up Luke Janeth PA-C Work Phone: [employer]. Start: 09-15-2019 End: 09-15-2019 Telephone follow-up Luke Janeth PA-C Work Phone: [employer] Start: 08-15-2019 End: 08-25-2019 Orders Luke Janeth PA-C Work Phone: [employer] Start: 07-28-2019 End: 07-28-2019 Patient encounter procedure Luke Janeth PA-C Work Phone: [employer] Start: 05-15-2019 End: 05-15-2019 Office outpatient visit 10 minutes Luke Janeth PA-C Work Phone: [employer] Start: 02-28-2019 End: 02-28-2019 Patient encounter procedure Luke Janeth PA-C Work Phone: [employer] Start: 01-02-2019 End: 01-02-2019 Patient encounter procedure Luke Janeth PA-C Work Phone: [employer] Start: 12-23-2018 End: 12-23-2018 Office outpatient visit 25 minutes Luke Janeth PA-C Work Phone: [employer] Start: 09-18-2018 End: 09-18-2018 Historical Summary Luke Janeth PA-C Work Phone: [employer]. Start: 09-16-2018 End: 09-16-2018 Telephone follow-up Luke Janeth PA-C Work Phone: [employer]. Start: 08-29-2018 End: 08-29-2018 Historical Summary Luke Janeth PA-C Work Phone: [employer]. Start: 08-29-2018 End: 08-29-2018 Patient encounter procedure Luke Janeth PA-C Work Phone: [employer]. Start: 08-28-2018 End: 08-28-2018 Historical Summary Luke Janeth PA-C Work Phone: [employer]. Start: 07-23-2018 End: 07-23-2018 Patient encounter procedure Luke Janeth PA-C Work Phone: [employer]. Start: 06-05-2018 End: 06-05-2018 Patient encounter procedure Luke Janeth PA-C Work Phone: [employer]. Start: 05-27-2018 End: 05-28-2018 Orders Luke Janeth PA-C Work Phone: [employer]. Start: 05-22-2018 End: 05-22-2018 Office outpatient visit 15 minutes Luke Janeth PA-C Work Phone: [employer]. Start: 10-22-2017 End: 10-25-2017 Patient encounter procedure Luke Janeth PA-C Work Phone: [employer]. Start: 02-02-2017 End: 02-06-2017 Orders Luke Janeth PA-C Work Phone: [employer]. Start: 01-01-2017 End: 01-08-2017 Orders Luke Janeth PA-C Work Phone: [employer]. Start: 12-28-2016 End: 12-28-2016 Patient encounter procedure Luke Janeth PA-C Work Phone: [employer]. Start: 10-27-2016 End: 10-27-2016 Office outpatient visit 15 minutes Luke Janeth PA-C Work Phone: [employer] Start: 08-25-2016 End: 08-25-2016 Patient encounter procedure Luke Janeth PA-C Work Phone: [employer] Start: 07-18-2016 End: 07-18-2016 Patient encounter procedure Luke Janeth PA-C Work Phone: [employer] Start: 07-29-2015 End: 07-29-2015 Patient encounter procedure Luke Janeth PA-C Work Phone: [employer] Start: 07-28-2015 End: 07-28-2015 Patient encounter procedure Luke Janeth PA-C Work Phone: [employer] Start: 01-27-2015 End: 01-27-2015 Patient encounter procedure Luke Janeth PA-C Work Phone: [employer] Start: 10-28-2014 End: 10-28-2014 Patient encounter procedure Luke Janeth PA-C Work Phone: [employer] Start: 06-29-2014 End: 06-29-2014 Patient encounter procedure Luke Janeth PA-C Work Phone: [employer] Start: 06-16-2014 End: 06-16-2014 Patient encounter procedure Luke Janeth PA-C Work Phone: [employer] Start: 05-27-2014 End: 05-27-2014 Patient encounter procedure Luke Janeth PA-C Work Phone: [employer] Start: 11-14-2013 End: 11-14-2013 Patient encounter procedure Luke Janeth PA-C Work Phone: [employer] Start: 10-13-2013 End: 10-13-2013 Patient encounter procedure Ivan Fowler PA-C Work Phone: [employer] Start: 03-04-2013 End: 03-04-2013 Patient encounter procedure Ivan JOLLEY-C Work Phone: [employer] Patient encounter procedure Mei Hernandez PA-C Work Phone: [employer]; [employer] Patient encounter procedure Mei Hernandez PA-C Work Phone: [employer]; [employer] Patient encounter procedure Yanique Gurrola SECURITY TEST ENGINEER [employer]; [employer] Procedures Date Procedure Procedure Detail Performing Clinician Start: 06-07-2024 Glucose quantitative blood xcpt reagent strip Angeli Gibson DO Work Phone: Start: 06-06-2024 Glucose quantitative blood xcpt reagent strip Angeli Gibson DO Work Phone: Start: 06-06-2024 Glucose quantitative blood xcpt reagent strip Angeli Gibson DO Work Phone: Start: 06-06-2024 Us preg uterus real time f/u trnsabdl per fetus Pratima Alberto DO Work Phone: Start: 06-06-2024 Antibody screen ARUNA GIBSON Comment on above: Performed By: #### L [id number], [id number] ####Family And Consumer Science Professor: MODESTA KAMARA ([id number])[facility] ([address] Start: 06-06-2024 ABO and Rh group [Ty pe] in Blood by Confirmatory method Reinaldo Dickens DO Work Phone: Start: 06-06-2024 Blood typing serologic abo Reinaldo Dickens DO Work Phone: Start: 06-06-2024 End: 06-06-2024 Culture bacterial quanttative colony count urine Pratima Alberto DO Work Phone: Start: 06-06-2024 Comprehensive metabo lic panel Pratima Alberto DO Work Phone: Start: 06-06-2024 Adult depression scr eening assessment Iman Narayanan DO Work Phone: Start: 06-03-2024 Radex foot complete minimum 3 views Mary Herrera MECHANICAL APPRENTICE.COMMUNITY OUTREACH ADVOCATE Work Phone: Start: 08-04-2023 Mri spinal canal cer vical w/o contrast matrl Abdon Srini DO Work Phone: Start: 02-21-2023 Us transvaginal Ellen Centeno MD Work Phone: Start: 09-10-2022 STREP A MOLECULAR (POC) Haven Patten MECHANICAL APPRENTICE.COMMUNITY OUTREACH ADVOCATE Work Phone: Start: 08-01-2022 Us pelvic nonobstetr ic real-time image complete Ellen Centeno MD Work Phone: Start: 07-28-2022 Microscopic observat ion [Identifier] in Cervix by Cyto stain Iman Narayanan DO Work Phone: Start: 05-10-2022 Radiologic exam ches t 2 views Humera Centeno APRN.COMMUNITY OUTREACH ADVOCATE Work Phone: Start: 05-10-2022 STREP A MOLECULAR (POC) Humera Centeno APRN.COMMUNITY OUTREACH ADVOCATE Work Phone: Start: 07-28-2019 End: 07-28-2019 Depression screening Mei Castano Work Phone: Start: 07-28-2019 End: 07-28-2019 Scr dep neg, no plan reqd Mei ALVARESC Work Phone: Start: 01-30-2019 Adult depression scr eening assessment Oswaldo Bernal MD Work Phone: Start: 12-23-2018 End: 01-01-2019 Mri spinal canal cervical w/o & w/contr matrl Mei Hernandez PA-C Work Phone: Start: 05-27-2018 End: 07-22-2018 Ndl emg 2 xtr w/wo related paraspinal areas Suki Ca RN Start: 05-22-2018 End: 05-22-2018 Depression screen annual Mei Treviño s PA-C Work Phone: Start: 05-22-2018 End: 05-27-2018 Radex spine lumbosacral 2/3 views Mei Hernandez PA-C Work Phone: Start: 05-22-2018 End: 05-22-2018 Scr dep neg, no plan reqd Mei aiken PA-C Work Phone: Start: 02-02-2017 End: 02-05-2017 Diagnostic mammography computer-aided detcj bi Mei Hernandez PA-C Work Phone: Start: 12-28-2016 End: 07-03-2017 Us breast uni real time with image complete Mei Hernandez PA-C Work Phone: Start: 10-27-2016 End: 10-31-2016 Ct abdomen & pelvis w/contrast material Haven Patten BELLY ROLLER-C Work Phone: Comment on above: lump felt in left fl ank for over a yearalso having RUQ pain. Start: 10-01-2016 End: 10-01-2016 Microscopic examination of cervical Papanicolaou smear Yanique Day SECURITY TEST ENGINEER Comment on above: [facility] Start: 10-01-2011 End: 10-01-2011 wisdom teeth extraction Yanique Day SECURITY TEST ENGINEER diagnostic mammogram Yanique Da y SECURITY TEST ENGINEER Plan of Treatment Date Care Activity Detail Author Start: 2041 Zoster Vaccines (1 of 2) Zoster Vacc esteban (1 of 2) [facility] Start: 02-07-2031 DTaP/Tdap/Td Vaccine s (4 - Td or Tdap) DTaP/Tdap/Td Vaccines (4 - Td or Tdap) [facility] Start: 05-10-2031 Urine microalbumin profile [facility] Start: 07-28-2027 HPV TESTING HPV TESTING [facility] Start: 07-28-2027 PAP TESTING PAP TESTING [facility] Start: 07-28-2027 Screening for malign ant neoplasm of cervix [facility] Start: 09-06-2025 PAP TESTING PAP TESTING [facility] Start: 07-28-2025 Screening for malign ant neoplasm of cervix [facility] Start: 06-06-2025 [facility] Start: 06-01-2024 Covid-19 Vaccine () Covid-19 Vaccine () [facility] Start: 06-01-2024 Covid-19 Vaccine () Covid-19 Vaccine () [facility] Start: 06-01-2024 Influenza vaccination [facility] Start: 10-01-2023 Behavioral Health Screening Behavioral Health Screening [facility] Start: 07-20-2023 End: 10-19-2023 17-Hydroxyprogesterone [Mass/volume] in Serum or Plasma HYDROXYPROGESTERO-17 Lab Routine Female infertility Expected: 07/20/2023, Expires: 10/19/2023 [facility] Work Phone: Comment on above: Expected: 07/20/2023 , Expires: 10/19/2023 Start: 07-20-2023 End: 10-19-2023 DHEA-S BLD DHEA-S BLD Lab Routine Female infertility Expected: 07/20/2023, Expires: 10/19/2023 [facility] Work Phone: Comment on above: Expected: 07/20/2023 , Expires: 10/19/2023 Start: 07-20-2023 End: 10-19-2023 Estradiol (E2) [Mass/volume] in Serum or Plasma ESTRADIOL-17B BLD Lab Routine Female infertility Expected: 07/20/2023, Expires: 10/19/2023 [facility] Work Phone: Comment on above: Expected: 07/20/2023 , Expires: 10/19/2023 Start: 07-20-2023 End: 10-19-2023 Fasting glucose [Mass/volume] in Serum or Plasma GLUCOSE FASTING BLD Lab Routine Female infertility Expected: 07/20/2023, Expires: 10/19/2023 [facility] Work Phone: Comment on above: Expected: 07/20/2023 , Expires: 10/19/2023 Start: 07-20-2023 End: 10-19-2023 Follitropin [Units/volume] in Serum or Plasma FSH BLD Lab Routine Female infertility Expected: 07/20/2023, Expires: 10/19/2023 [facility] Work Phone: Comment on above: Expected: 07/20/2023 , Expires: 10/19/2023 Start: 07-20-2023 End: 10-19-2023 Hemoglobin A1c in Blood HGB A1C Lab Routine Female infertility Expected: 07/20/2023, Expires: 10/19/2023 [facility] Work Phone: Comment on above: Expected: 07/20/2023 , Expires: 10/19/2023 Start: 07-20-2023 End: 10-19-2023 Lutropin [Units/volume] in Serum or Plasma LUTEINIZING HORMONE Lab Routine Female infertility Expected: 07/20/2023, Expires: 10/19/2023 [facility] Work Phone: Comment on above: Expected: 07/20/2023 , Expires: 10/19/2023 Start: 07-20-2023 End: 10-19-2023 Prolactin [Mass/volume] in Serum or Plasma PROLACTIN BLD Lab Routine Female infertility Expected: 07/20/2023, Expires: 10/19/2023 [facility] Work Phone: Comment on above: Expected: 07/20/2023 , Expires: 10/19/2023 Start: 07-20-2023 End: 10-19-2023 TESTOSTERONE, FREE AND TOTAL TESTOSTERONE, FREE AND TOTAL Lab Routine Female infertility Expected: 07/20/2023, Expires: 10/19/2023 [facility] Work Phone: Comment on above: Expected: 07/20/2023 , Expires: 10/19/2023 Start: 07-20-2023 End: 10-19-2023 Thyrotropin [Units/volume] in Serum or Plasma TSH BLD Lab Routine Female infertility Expected: 07/20/2023, Expires: 10/19/2023 [facility] Work Phone: Comment on above: Expected: 07/20/2023 , Expires: 10/19/2023 Start: 06-01-2023 Covid-19 Vaccine () Covid-19 Vaccine () [facility] Start: 06-01-2023 Influenza vaccination [facility] Start: 10-01-2022 DEPRESSION ASSESSMENT DEPRESSION ASS ESSMENT [facility] Start: 09-10-2022 End: 09-24-2022 Influenza virus A and B RNA and SARS-CoV-2 (COVID-19) N gene panel - Respiratory specimen by SONA with probe detection COVID WITH FLUA+B, ROUTINE Microbiology Routine Sore throat Viral illness Expected: 09/10/2022, Expires: 09/24/2022 [facility] Work Phone: Comment on above: Expected: 09/10/2022 , Expires: 09/24/2022 Start: 07-28-2022 End: 07-28-2023 PELVIC US WHI PELVIC US WHI Anc Imaging Routine Pelvic pain in female Expected: 07/28/2022, Expires: 07/28/2023 [facility] Work Phone: Comment on above: Expected: 07/28/2022 , Expires: 07/28/2023 Start: 06-01-2022 Influenza vaccination [facility] Start: 03-16-2022 End: 05-16-2022 25-hydroxyvitamin D3 [Mass/volume] in Serum or Plasma VITAMIN D 25 HYDROXY Lab Routine Muscle ache Malaise and fatigue Expected: 03/16/2022, Expires: 05/16/2022 [facility] Work Phone: Comment on above: Expected: 03/16/2022 , Expires: 05/16/2022 Start: 03-16-2022 End: 05-16-2022 Alpha tocopherol [Mass/volume] in Serum or Plasma VITAMIN E/TOCOPHEROL Lab Routine Disturbance of skin sensation Expected: 03/16/2022, Expires: 05/16/2022 [facility] Work Phone: Comment on above: Expected: 03/16/2022 , Expires: 05/16/2022 Start: 03-16-2022 End: 05-16-2022 Cobalamin (Vitamin B12) [Mass/volume] in Serum or Plasma VITAMIN B12 BLOOD Lab Routine Disturbance of skin sensation Expected: 03/16/2022, Expires: 05/16/2022 [facility] Work Phone: Comment on above: Expected: 03/16/2022 , Expires: 05/16/2022 Start: 03-16-2022 End: 05-16-2022 Hemoglobin A1c in Blood HGB A1C Lab Routine Disturbance of skin sensation Expected: 03/16/2022, Expires: 05/16/2022 [facility] Work Phone: Comment on above: Expected: 03/16/2022 , Expires: 05/16/2022 Start: 03-16-2022 End: 05-16-2022 IMMUNOFIXATION SCREEN, SERUM IMMUNOFIXATION SCREEN, SERUM Lab Routine Disturbance of skin sensation Expected: 03/16/2022, Expires: 05/16/2022 [facility] Work Phone: Comment on above: Expected: 03/16/2022 , Expires: 05/16/2022 Start: 03-16-2022 End: 05-16-2022 KAPPA/TRUJILLO,FREE,SER KAPPA/TRUJILLO,FREE,SER Lab Routine Disturbance of skin sensation Expected: 03/16/2022, Expires: 05/16/2022 [facility] Work Phone: Comment on above: Expected: 03/16/2022 , Expires: 05/16/2022 Start: 03-16-2022 End: 05-16-2022 Pyridoxine [Mass/volume] in Serum or Plasma VITAMIN B6/PYRIDOXIN Lab Routine Disturbance of skin sensation Expected: 03/16/2022, Expires: 05/16/2022 [facility] Work Phone: Comment on above: Expected: 03/16/2022 , Expires: 05/16/2022 Start: 03-16-2022 End: 05-16-2022 VITAMIN B1 (THIAMINE), WHOLE BLOOD VITAMIN B1 (THIAMINE), WHOLE BLOOD Lab Routine Disturbance of skin sensation Expected: 03/16/2022, Expires: 05/16/2022 [facility] Work Phone: Comment on above: Expected: 03/16/2022 , Expires: 05/16/2022 Start: 2021 HPV TESTING HPV TESTING [facility] Start: 2021 Screening for malign ant neoplasm of cervix HPV/Cotest [facility] Start: 10-28-2021 COVID-19 VACCINE (4 - Booster for Moderna series) COVID-19 VACCINE (4 - Booster for Moderna series) [facility] Start: 10-28-2021 COVID-19 VACCINE (4 - Moderna series) COVID-19 VACCINE (4 - Moderna series) [facility] Start: 10-01-2021 DEPRESSION ASSESSMENT DEPRESSION ASS ESSMENT [facility] Start: 01-31-2020 Adult depression screening assessment DEPRESSION SCREENING [facility] Start: 2010 Hepatitis B Vaccine (1 of 3 - 19+ 3-dose series) Hepatitis B Vaccine (1 of 3 - 19+ 3-dose series) [facility] Start: 2010 Hepatitis B Vaccines (1 of 3 - 19+ 3-dose series) Hepatitis B Vaccines (1 of 3 - 19+ 3-dose series) [facility] Start: 2009 Depression Screening Depression Scre ening [facility] Start: 2009 Hepatitis C screening Hepatitis C Sc reening [facility] Start: 2004 Varicella vaccination Varicell a Vaccines (1 of 2 - 13+ 2-dose series) [facility] Start: 1992 MMR Vaccines (1 of 1 - Standard series) MMR Vaccines (1 of 1 - Standard series) [facility] Start: 1991 HEPATITIS B (1 of 3 - 3-dose series) HEPATITIS B (1 of 3 - 3-dose series) [facility] Start: 1991 Hepatitis B Vaccine (1 of 3 - 3-dose series) Hepatitis B Vaccine (1 of 3 - 3-dose series) [facility] Start: 1991 HIV screening HIV Screening [facility] Start: 1991 Lipid panel Lipid Panel [facility] COVID & INFLUENZA A/ B & RSV PCR, ROUTINE COVID & INFLUENZA A/B & RSV PCR, ROUTINE Microbiology Routine Viral illness 07/23/2024 4:07 PM EDT [facility] Work Phone: PAP FLUID CERVICAL SCREENING PAP FLUID CERVICAL SCREENING Lab Routine Screening for cervical cancer Special screening examination for human papillomavirus (HPV) 07/28/2022 1:36 PM EDT [facility] Work Phone: End: 08-27-2023 Us transvaginal US FEMALE PELVIS TRANSVAG Radiology Routine Pelvic pain in female 1 Occurrences starting 07/28/2022 until 08/27/2023 [facility] Work Phone: Comment on above: 1 Occurrences starti ng 07/28/2022 until 08/27/2023 [facility] Immunizations Immunization Date Immunization Notes Care Provider Fa alexandrea 09-05-2022 influenza virus vaccine, unspecified formulation Danae Marc MECHANICAL APPRENTICE.CNM Work Phone: [facility] 02-07-2021 tetanus toxoid, reduced diphtheria toxoid, and acellular pertussis vaccine, adsorbed Oswaldo Bernal MD Work Phone: [facility] Work Phone: 01-24-2021 RHO(D) immune globulin- IV or IM Oswaldo Bernal MD Work Phone: [facility] Work Phone: 08-15-2019 tetanus toxoid, reduced diphtheria toxoid, and acellular pertussis vaccine, adsorbed Ivan Fowler PA-C Work Phone: [facility] [employer] [facility] Comment on above: Site: Right ArmVIS G iven: * Tdap (Tetanus, Diphtheria, Pertussis) (11/24/14) 07-12-2019 influenza, injectabl e, quadrivalent, contains preservative Luke Janeth PA-C Work Phone: [facility] 01-01-2015 tetanus toxoid, reduced diphtheria toxoid, and acellular pertussis vaccine, adsorbed Oswaldo Bernal MD Work Phone: [facility] Work Phone: Payers Date Payer Category Payer Unknown MMO MMO [employer] [id number] 2019-Present [phone] [address] [place] [address] PPO [id number] 2019 Unknown [id number] 2019 Unknown [id number] 1991 Unknown [id number] [id number] 1991 Unknown [id number] [id number] 1991 Unknown [id number] [id number] 1991 Unknown [id number] [id number] 1991 Unknown [id number] 2.16.840.1.321426.3.579.2479 1991 Unknown [id number] 2.16.840.1.491073.3.579.2479 1991 Unknown [id number] 2.16.840.1.852482.3.579.2479 1991 Unknown [id number] 2.16.840.1.077222.3.579.2479 1991 Unknown [id number] 2.16.840.1.456665.3.579.2.479 1991 Unknown [id number] 2.16.840.1.544530.3.579.2.479 1991 Unknown [id number] 2.16.840.1.578202.3.579.2.479 1991 Unknown [id number] 2.16.840.1.361389.3.579.2.479 1991 Unknown [id number] 2.16.840.1.578302.3.579.2.479 1991 Unknown [id number] 2.16.840.1.162859.3.579.2.479 1991 Unknown [id number] 2.16.840.1.015540.3.579.2.479 1991 Unknown [id number] 2.16.840.1.085492.3.579.2.479 1991 Unknown [id number] 2.16.840.1.924123.3.579.2.594 1991 Unknown [id number] 2.16.840.1.259150.3.579.2.594 1991 Unknown [id number] [id number] 1991 Unknown [id number] Social History Date Type Detail Facility Start: 01-01-2015 End: 07-28-2022 Tobacco smoking status NHIS Never smoked tobacco [facility] Work Phone: Start: 01-01-2015 End: 07-28-2022 Tobacco use and exposure Smokeless tobacco non-user [facility] Work Phone: Start: 03-16-2022 End: 07-23-2024 Alcohol intake Current non-drinker of alcohol (finding) [facility] Start: 08-23-2020 History SDOH Financial 5 [facility] Start: 08-23-2020 History SDOH Food Worry 1 [facility] Start: 08-23-2020 History SDOH Transport Med 2 [facility] Start: 08-23-2020 Education 17 [facility] Start: 1991 Sex Assigned At Not on file [facility] Start: 03-06-2022 End: 05-10-2022 Exposure to SARS-CoV-2 (event) Not sure [facility] Start: 06-10-2023 End: 07-20-2023 History of Social function [facility]idi Work Phone: Start: 06-10-2023 End: 07-20-2023 Tobacco use panel [facility] Work Phone: How hard is it for y ou to pay for the very basics like food, housing, medical care, and heating Not hard at all [facility] Work Phone: (I/We) worried wheth er (my/our) food would run out before (I/we) got money to buy more. Never true [facility] Work Phone: The thought of sushma estrada myself has occurred to me Never [facility] Work Phone: Alcohol Use: Alcohol Use: ; None. [employer] Tobacco Use: Tobacco Use: ; N ever smoker. [employer]. Female [facility] [employer] Work Phone: Start: 06-06-2024 Alcoholic beverage intake Ex-drinker (finding) [employer] Has the [employer] threatened to shut off services in your home in past 12Mo [employer] Do you belong to any clubs or organizations such as yarsani groups, unions, fraternal or athletic groups, or school groups? Yes [employer] Are you now , , , , never or living with a partner? [facility] How hard is it for y ou to pay for the very basics like food, housing, medical care, and heating Not very hard [facility] Do you feel stress - tense, restless, nervous, or anxious, or unable to sleep at night because your mind is troubled all the time - these days [OSQ] Not at all [facility] Start: 10-29-2023 [facility] Clinical Notes 02-09-2019 to 07-23-2024 Mike Mccarthy APRN.[employer] - 07/23/2024 3:32 PM EDTPatient InstructionsDischarge Lucio Syed, DO - 06/07/2024 5:51 AM EDTSukhi Raymond PharmD - 06/06/2024 5:16 PM EDT Note Date & Type Note Facility 07-23-2024 History of Presen t illness Narrative Subjective HPI Nontoxic-appearing female presents to urgent care requesting COVID-19 testing. Patient states developed body aches chills fatigue yesterday. She is currently being treated for uterine infection by PRODUCT SUPPORT TECHNICIAN. Currently on a meropenem. Daughter sick earlier this week similar signs and symptoms. OTC medication none recently. Denies any cough chest pain shortness of breath. Past medical history prescription medications allergies reviewed. .Patient presents with: Fever: bodyaches, chills x 8 days, requesting covid and flu test to rule out PAST MEDICAL HISTORY Diagnosis Date Benign heart murmur Breast abscess 10/2019 left extremely dense breast tissue Gestational hypertension History of gestational hypertension 08/23/2020 Small fiber neuropathy PAST SURGICAL HISTORY Procedure Laterality Date EXTRACTION, ERUPTED TOOTH OR EXPOSED ROOT (ELEVATION AND/OR FORCEPS REMOVAL) PAST SURGICAL HISTORY OF removal of bereast abcess ALLERGIES Latex and Penicillins MEDICATIONS magnesium aspart,citrate,oxide (TRIPLE MAGNESIUM COMPLEX) 400 mg magnesium cap Take by mouth as directed. vit no.124/iron/folic ( VITAMIN ORAL) Take by mouth. famotidine (PEPCID ORAL) Take by mouth. (Patient not taking: Reported on 07/23/2024) FAMILY HISTORY Problem Relation Age of Onset Breast Cancer Mother 53 Hypertension Mother other (equivocal ? SLE) Mother Hypertension Father Ulcerative Colitis Father Colon Cancer Maternal Grandmother Ovarian cancer Other maternal great aunt Parkinson s Disease Maternal Grandfather other (Lymphoma) Maternal Grandfather No Known Problems Paternal Grandmother Hypertension Paternal Grandfather No Known Problems Daughter Social History Tobacco Use Smoking status: Never Smokeless tobacco: Never Vaping Use Vaping status: Never Used Substance Use Topics Alcohol use: No Drug use: Never BP 102/64 Pulse 102 Temp 37.6 C (99.7 F) Resp 18 Wt 93.3 kg (205 lb 11 oz) LMP 09/17/2023 SpO2 98% BMI 31.27 kg/m Review of Systems Constitutional: Positive for chills, fever and malaise/fatigue. HENT: Negative for congestion, ear discharge, ear pain, sinus pain and sore throat. Eyes: Negative for blurred vision, pain, discharge and redness. Respiratory: Negative for cough, hemoptysis, sputum production, shortness of breath, wheezing and stridor. Cardiovascular: Negative for chest pain. Gastrointestinal: Negative for abdominal pain, diarrhea, nausea and vomiting. Musculoskeletal: Positive for myalgias. Skin: Negative for itching and rash. Neurological: Negative for dizziness and headaches. Objective Physical Exam Constitutional: General: She is not in acute distress. Appearance: She is not diaphoretic. HENT: Head: Normocephalic. Jaw: No trismus, tenderness, swelling or pain on movement. Mouth/Throat: Mouth: Mucous membranes are moist. Pharynx: Oropharynx is clear. Uvula midline. No pharyngeal swelling, oropharyngeal exudate, posterior oropharyngeal erythema or uvula swelling. Eyes: Conjunctiva/sclera: Conjunctivae normal. Pupils: Pupils are equal, round, and reactive to light. Cardiovascular: Rate and Rhythm: Normal rate and regular rhythm. Heart sounds: Normal heart sounds. Pulmonary: Effort: Pulmonary effort is normal. No tachypnea, accessory muscle usage or respiratory distress. Breath sounds: Normal breath sounds. No stridor. No wheezing, rhonchi or rales. Abdominal: General: There is no distension. Palpations: Abdomen is soft. Tenderness: There is no abdominal tenderness. There is no guarding or rebound. Musculoskeletal: Cervical back: Normal range of motion and neck supple. No edema, erythema, rigidity or tenderness. No pain with movement. Normal range of motion. Lymphadenopathy: Cervical: No cervical adenopathy. Skin: General: Skin is warm and dry. Neurological: Mental Status: She is alert and oriented to person, place, and time. ASSESSMENT/PLAN: 1. Viral illness - ICD9: 079.99, ICD10: B34.9 - Discussed viral etiology and rationale for treatment. - Symptomatic treatment with prn analgesia - Supportive care with fluids and rest - COVID & INFLUENZA A/B & RSV PCR, ROUTINE If positive for COVID-19 patient will discuss antiviral therapy with PRODUCT SUPPORT TECHNICIAN. Patient was instructed to immediately proceed to emergency room for any new, worsening, or symptoms lasting longer than anticipated. The patient's clinical presentation is otherwise unremarkable at this time. Based on exam and clinical finding, the patient is stable for discharge. Plan of care was discussed with patient. Patient verbalizes understanding and agrees to plan of care. This note was generated using [employer] software. It may contain errors in wording, punctuation, or spelling. Mike Mccarthy APRN.IRAJ documented in this encounter [facility] 07-23-2024 Instructions Mike Mccarthy APRN.CNP - 07/23/2024 3:26 PM EDT How to Manage Common Symptoms Associated with COVID for Adults Fever- Fever is a temperature over 100.4 F and can occur when the body is fighting an infection. To help treat a fever: Drink plenty of fluids and stay well hydrated. Eat small amounts of easy to digest food. Rest. Your body needs rest to recover, but getting up and moving around the house frequently is a good idea. You should try to continue doing your normal daily activities (bathing, toileting, grooming, cooking), though you will probably feel tired, and need to rest often. Avoid any heavy activity or exercise, as this will increase your body temperature. Dress in light clothing and stay covered in a light sheet. Keep the room temperature cool. Take a slightly warm (not cold or cool) bath, or apply damp washcloths to the forehead and wrists. Cough- Cough is a common symptom associated with COVID and can be bothersome. To help treat a cough: Stay well hydrated. Try warm water or tea with lemon and/or honey to help soothe the cough. Use a humidifier to add moisture to the air. Try a product with menthol, like a cough drop or a rub for your chest such as Vicks, which can help reduce cough. Try cough drops. Avoid smoking and other strong odors or perfumes. Try breathing exercises to keep your lungs open and clear. Take a big deep breath through your nose and hold for 5 seconds before slowly releasing. Repeat frequently, while you are awake. Congestion- Runny nose or nasal congestion can occur with COVID. Treatment can help relieve symptoms: Try OTC nasal saline spray, or nasal saline rinse to relieve mucus congestion. Nasal strips can help keep nasal passages open, to increase airflow. Elevating your head with an extra pillow in bed can help reduce congestion. Using a humidifier can increase moisture in the air, and make breathing easier. Sore Throat- Another common symptom with COVID, can be managed at home by: Stay well hydrated. Gargle with salt water - mix teaspoon salt with 1 cup of warm water and gargle. This helps to loosen mucus in the back of the throat and may reduce discomfort. Try ice chips, popsicles or lozenges to soothe the throat. Nausea/Vomiting/Diarrhea- These are common symptoms, and staying hydrated is most important. If you are nauseous or vomiting, start with small sips of water every 10-15 minutes and increase as tolerated. You can try sucking an ice cube too. If tolerating, you can try pedialyte or Gatorade, or flat sprite or ish-micehlle. Start slowly and increase as you are able to. Instead of meals, try smaller, more frequent snacks. Try eating bland foods like crackers, toast, rice, and applesauce. Avoid spicy, greasy or fried foods and dairy containing foods. Even if you aren't feeling hungry due to lack of smell or taste, it is important to try to take in some food when you are able. After drinking and eating, rest in an upright position for up to two hours as needed to help decrease nauseous feelings. Try closing your eyes, avoid moving and watching TV. Avoid strong odors that can make you feel more nauseated. When to seek emergency medical attention Look for emergency warning signs for COVID-19. If having any of these symptoms, seek emergency medical care immediately: Trouble breathing Persistent pain or pressure in the chest New confusion Inability to wake or stay awake Bluish lips or face *This list is not all possible symptoms. Please call your medical provider for any other symptoms that are severe or concerning to you. documented in this encounter [facility] 06-07-2024 Hospital Discharg e instructions Bessie Yañez MD - 06/07/2024 6:32 PM EDT Follow up appointment with your doctor/senior information systems architect - Keep next scheduled appointment Activity - Normal Activity Call your doctor/senior information systems architect if you have: - leaking fluid - vaginal bleeding - regular contractions: More than 6 contractions in one hour - decreased movement - worsening abdominal (belly) pain - headache, blurry vision, increased swelling, upper abdominal pain If you are going home with contractions that are uncomfortable/painful- we recommend these coping strategies: rhythmic breathing, hydrotherapy, imagery or visualization, gentle massage, walking and changing your position. Treatment Verification: Willis Gautam was assessed on Labor and Delivery for a related visit on 06/07/24 . Bessie Yañez MD [facility] documented in this encounter [facility] 06-07-2024 Note Department of Obstet rics and Gynecology [facility] Discharge Summary Admission on 06/06/2024 3:09 AM Willis Gautam is a 33 y.o. at 33w4d who presented to Labor and Delivery for threatened labor. She was found to be 2/50/-3 on admission with regular contractions. She received BMZ x2 on 06/05-06/06. She was started on Procardia tocolysis as well as GBS ppx with Vancomycin in setting of PCN allergy. Growth scans ordered on admission showed A: cephalic, 2081g (37%), B: Breech, 2057g (36%) Normal followup anatomy, fluids. BPP 8/8 x 2. Completed Procardia tocolysis on 06/07. SVE remained unchanged and she was comfortable without contractions and able to be discharged home. Meds: Medication List ASK your doctor about these medications famotidine 20 MG tablet Commonly known as: Pepcid ferrous sulfate 325 (65 Fe) MG tablet magnesium oxide 400 mg tablet Commonly known as: Mag-Ox 1 PO Discharge to: Home Discharge date: 06/07 Discharge Dx: tPTL Follow up appointment with your doctor/senior information systems architect - Keep next scheduled appointment Activity - Normal Activity Call your doctor/senior information systems architect if you have: - leaking fluid - vaginal bleeding - regular contractions: More than 6 contractions in one hour - decreased movement - worsening abdominal (belly) pain - headache, blurry vision, increased swelling, upper abdominal pain Pratima Alberto DO 06/06/2024 6:54 AM [facility] 06-07-2024 History of Presen t illness Narrative Images from the original note were not included. Maternal Medicine Service Resident Progress Note 06/07/2024 5:52 AM 06/06/2024 Hospital Day: 2 Willis Gautam, 33 y.o. 33w5d Patient has been seen and examined. Pt is doing well this AM. Denies ongoing contractions or pelvic pressure. Feeling good movement. Positive movement Negative vaginal bleeding Negative LOF Negative Contractions Vitals: 06/06/24 1300 06/06/24 1508 06/06/24 2041 06/07/24 0004 BP: 121/68 118/68 116/63 Pulse: 112 78 79 87 Resp: 16 16 14 Temp: 36.7 C (98.1 F) 36.7 C (98 F) 36.4 C (97.5 F) TempSrc: Temporal Temporal Temporal SpO2: 97% 98% 97% Weight: Height: FHT: - Baby A 130s moderate variability - Baby B 120s, moderate variability Accels: present Decels: absent Contractions: intermittent, irregular Physical Exam: Gen: NAD HEENT: Normocephalic, Atraumatic, EOMI, MMM Resp: equal chest rise bilaterally Abd: soft, gravid, NTND, no rebound, no guarding. Negative fundal tenderness Ext: No LE edema, no calf tenderness or swelling Medications: Current Facility-Administered Medications Medication Dose Route Frequency Provider Last Rate Last Admin acetaminophen (Tylenol) tablet 650 mg 650 mg Oral q6h PRN Pratima Dolly, DO 650 mg at 06/07/24 0009 Or acetaminophen (Tylenol) suppository 650 mg 650 mg Rectal q6h PRN Pratima Schlieper, DO chlorhexidine (Hibiclens) 4 % solution 1 Application 1 Application Topical Daily Pratima Dolly, DO docusate sodium (Colace) capsule 100 mg 100 mg Oral BID Pratima Bladimireper, DO famotidine (Pepcid) 20 mg in sodium chloride (PF) 0.9 % 10 mL injection 20 mg IntraVENous BID Tanya Syed, DO 20 mg at 06/06/242042 Or famotidine (Pepcid) tablet 20 mg 20 mg Oral BID Tanya Syed, DO lactated ringers infusion 125 mL/hr IntraVENous Continuous Pratima Schlieper, DO Stopped at 06/06/24 163 NIFEdipine (Procardia) capsule 20 mg 20 mg Oral 4 times per day Tanya Syed, DO 20 mg at 06/07/24 0005 ondansetron ODT (Zofran-ODT) disintegrating tablet 4 mg 4 mg Oral q8h PRN Pratima Schlieper, DO Or ondansetron (Zofran) injection 4 mg 4 mg IntraVENous q6h PRN Pratima Schlieper, DO vitamin tablet 1 tablet Oral Daily Pratima Schlieper, DO Assessment/Plan: Willis Gautam is a 33 y.o. female 33w5d Labor - Presented to OSH for contractions, received 1 dose BMZ and transferred here - On presentation, patient overall comfortable appearing - VTX (A)/Breech (B) on US 06/06 - SVE /-3 - Contractions q 5-6 on presentation - Plan to admit for steroids, Procardia tocolysis, and GBS prophylaxis [place] Twins - Last growth 05/12/24: Twin A EFW 1654g 63%, AC 60%, Twin B EFW 1739g 69%, AC 80%, ALPHONSO wnl. MCA doppler wnl. Bladders and stomachs visualized for both - S/P MFM consult, following - Amniotic fluid and bladder assessment every 2 weeks. - growth assessment every 4 weeks. - Follow up anatomy survey in 2 weeks. - Initiate MCA Doppler at 20 weeks and continue every two weeks. - echocardiogram around 22 weeks gestation, ordered with pediatric cardiology. - testing weekly starting at 32 weeks (or sooner if indicated). - Delivery at 37 weeks (or sooner if indicated). - Low risk NIPT - Repeat growths 06/06 normal concordant growth. Twin A EFW 2081g 37%. Twin B EFW 2057g 36%. Normal DVPs 4.9 and 4.2. BPPs 8/8 each. No evidence of TTTS. - echos obtained March 2024 and wnl - Should patient progress in labor, should Twin B rotation, discussed possible need for internal or external version, discussed breech extraction, discussed risk of head entrapment and risk of compromise. 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 Tanya Syed, 06/07/2024, 5:52 AM Associated attestation - Lucinda Bar MD - 06/07/2024 11:02 AM EDT MFM ATTENDING I have personally obtained a history and examined the patient with Dr. Syed. I agree with the assessment and plan as documented in the resident's note. The patient is a 33 y.o. 33w5d now HD#2, admitted for PTL Pertinent Background: [place] Di twin with normal growth and no complications. Presented via car to [facility] from [place] secondary to CTXs and PTL with cervix 2cm. She was given BMZ and Procardia tocolysis and contractions resolved shortly after arrival yesterday morning. Today she reports she is very comfortable and slept well overnight. No contractions. No LOF, No VB. She reports good movement. Vitals: 06/07/24 0913 BP: 116/74 Pulse: 82 Resp: 18 Temp: 36.7 C (98.1 F) SpO2: 98% Alert and oriented, NAD Gravid nontender abdomen Current Monitoring Plan: TID NST Ultrasound: 06/06: A: cephalic, 2081g (37%), B: Breech, 7g (36%) Normal followup anatomy, fluids. BPP 8/8 x 2. Plan: S/p BMZ as of approx 10pm last night. Patient strongly desires discharge tonight. She will finish Procardia tocolysis this afternoon at 6pm and if stable can be discharged home. Delivery will be planned at [place]. 25 minutes spent in total floor time today for review of records, patient interview and exam, documentation and coordination of care with care teams. Lucinda Bar MD Vancomycin therapy has been discontinued by Dr Syed on 06/06/24. Thank you for the consult. Pharmacy signing off for vancomycin dosing. Sukhi Raymond PharmD Date: 06/06/24 Time: 5:16 PM documented in this encounter [facility] 06-06-2024 History and physical note Department of Maternal Medicine History and Physical CHIEF COMPLAINT: contractions HISTORY OF PRESENT ILLNESS: The patient is a 33 y.o. female at 33w4d. OB History 4 Para 2 Term 2 AB 1 Living 2 SAB 1 IAB Ectopic Multiple Live Births 2 Patient presents with a chief complaint as above and is being admitted for contractions Transport: Yes, drove herself from [place] Prior Hospitalizations: No Estimated Due Date: Estimated Date of Delivery: 07/21/24 CARE: Complications: [place]-Di twins Heart murmur Obesity Rh incompatibility PAST OB HISTORY: OB History 4 Para 2 Term 2 AB 1 Living 2 SAB 1 IAB Ectopic Multiple Live Births 2 Detailed OB History TSVD SAB TSVD Current Past Medical History: Past Medical History: Diagnosis Date Anemia Gestational hypertension affecting first Heart murmur Past Surgical History: Past Surgical History: Procedure Laterality Date US I&D BREAST ABSCESS DEEP (HISTORICAL) Left WISDOM TOOTH EXTRACTION Allergies: Pcn [penicillins] Social History: Social History Socioeconomic History Marital status: Spouse name: Jad Number of children: Not on file Years of education: Not on file Highest education level: Not on file Occupational History Not on file Tobacco Use Smoking status: Never Smokeless tobacco: Never Vaping Use Vaping status: Never Used Substance and Sexual Activity Alcohol use: Not Currently Drug use: Never Sexual activity: Not on file Other Topics Concern Not on file Social History Narrative Not on file Social Determinants of Health Financial Resource Strain: Low Risk (08/23/2020) Received from [facility] Overall Financial Resource Strain (CARDIA) Difficulty of Paying Living Expenses: Not hard at all Food Insecurity: No Food Insecurity (08/23/2020) Received from [facility] Hunger Vital Sign Worried About Running Out of Food in the Last Year: Never true Ran Out of Food in the Last Year: Never true Transportation Needs: No Transportation Needs (08/23/2020) Received from [facility] PRAPARE - Transportation Lack of Transportation (Medical): No Lack of Transportation (Non-Medical): No Physical Activity: Not on file Stress: Not on file Social Connections: Not on file Intimate Partner Violence: Not on file Housing Stability: Not on file Family History: No family history on file. Medications Prior to Admission: Medications Prior to Admission Medication Sig Dispense Refill Last Dose famotidine (Pepcid) 20 MG tablet Take 20 mg by mouth 2 times daily. 06/05/2024 ferrous sulfate 325 (65 Fe) MG tablet Take 325 mg by mouth daily (with breakfast). 06/05/2024 magnesium oxide (Mag-Ox) 400 mg tablet Take 400 mg by mouth daily. Past Week MV-Min-Fe Fum-FA-DHA ( 1 PO) Take by mouth. 06/05/2024 REVIEW OF SYSTEMS: Review of Systems Constitutional: Negative. HENT: Negative. Respiratory: Negative. Cardiovascular: Negative. Gastrointestinal: Negative. Genitourinary: Positive for pelvic pain. Musculoskeletal: Negative. Neurological: Negative. Labs: CBC: Lab Results Component Value Date WBC 6.6 06/06/2024 RBC 3.76 (L) 06/06/2024 HGB 11.0 (L) 06/06/2024 HCT 34.2 (L) 06/06/2024 MCV 91.0 06/06/2024 MCH 29.3 06/06/2024 MCHC 32.2 06/06/2024 RDW 14.2 06/06/2024 PLT 180 06/06/2024 MPV 11.4 06/06/2024 PHYSICAL EXAM: There were no vitals filed for this visit. General appearance: awake, alert, cooperative, no apparent distress, and appears stated age Neurologic: Awake, alert, oriented to name, place and time. Lungs: No increased work of breathing, good air exchange Abdomen: Soft, non tender, gravid, consistent with her gestational age Sterile Speculum Exam: Membranes: Intact HSV Lesions: not applicable Cervix: 2/50/-3 Contraction frequency: 5-6min 05/12/24: Growth US: Twin A EFW 1654g 63%, AC 60% Twin B EFW 1739g 69%, AC 80% ALPHONSO wnl. MCA doppler wnl. Bladders and stomachs visualized for both. ASSESSMENT AND PLAN: LABOR DELIVERY ??? SCD's ONLY (labor through ambulation) SCD's PLUS Prophylactic Anticoagulation until discharge SCD's PLUS Prophylactic Anticoagulation for 6 weeks SCD's PLUS Therapeutic Anticoagulation for 6 weeks Vaginal Delivery [] BMI ? 40 kg/m2 Delivery All patients Vaginal Delivery [] BMI ? 40 kg/m2 AND [] Antepartum hospitalization ? 72 hours within the past month Delivery 1 Major Risk Factor: [] BMI ? 35 kg/m2 [] Low Risk Thrombophilia [] PPH+RBCs, IR, or operation [] Infection+Antibiotics [] Antepartum hospitalization ? 72 hours within the past month [] PMH: Sickle Cell, SLE, Cardiac Dz, Active IBD, Active Cancer, Nephrotic Syndrome OR 2 Minor Risk Factors: [] Multiple gestation [] Age > 40 [] PPH ? 1,000cc [] (+)FMH of VTE [] Smoker [] Preeclampsia [] BMI ? 40 kg/m2 AND [] Low Risk Thrombophilia OR ANY OF THE FOLLOWING: [] High Risk Thrombophilia without prior VTE [] Low Risk Thrombophilia with (+)FMH of VTE [] Any single prior VTE ANY OF THE FOLLOWING: [] Already on LMWH/UFH [] Multiple prior VTE [] High Risk Thrombophilia with prior VTE Low Risk Thrombophilia: FVL (heterozygous), Prothrombin (heterozygous), Protein C, Protein S High Risk Thrombophilia: FVL (homozygous), Prothrombin (homozygous), FVL+Prothrombin (heterozygous), Antithrombin III, APLS VTE Prophylaxis: Not Indicated Admission: Admit to L&D FHR: Category 1, heart monitoring CEFM Labs: GBS collected GC/CT collected Urine collected FFN not obtained Type&Screen collected Serum Labs CMP Consults: Neonatology Imaging: Indicated/ordered Diet: CLD Testing: TBD Timing and Route of Delivery: TBD Medications: Neuroprotection Not indicated Tocolysis Indicated/ordered Antibiotics Indicated/ordered Steroids: Betamethasone - indicated and ordered Labor - Presented to OSH for contractions, received 1 dose BMZ and transferred here - On presentation, patient overall comfortable appearing - VTX/VTX on BSUS - SVE /-3 - Contractions q 5-6 on presentation - Plan to admit for steroids, Procardia tocolysis, and GBS prophylaxis [place]/Di Twins - Last growth 05/12/24: Twin A EFW 1654g 63%, AC 60%, Twin B EFW 1739g 69%, AC 80%, ALPHONSO wnl. MCA doppler wnl. Bladders and stomachs visualized for both - S/P MFM consult, following - Amniotic fluid and bladder assessment every 2 weeks. - growth assessment every 4 weeks. - Follow up anatomy survey in 2 weeks. - Initiate MCA Doppler at 20 weeks and continue every two weeks. - echocardiogram around 22 weeks gestation, ordered with pediatric cardiology. - testing weekly starting at 32 weeks (or sooner if indicated). - Delivery at 37 weeks (or sooner if indicated). - Low risk NIPT - Repeat growths ordered today - echos obtained March 2024 and wnl - Discussed VTX/VTX at this time, should patient progress in labor, should Twin B rotation, discussed possible need for internal or external version, discussed breech extraction, discussed risk of head entrapment and risk of compromise. Should situation arise, patient desires breech vaginal delivery. 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 REINALDO DICKENS DO 06/06/2024, 6:15 AM Cc: Angeli Gibson DO Associated attestation - Lucinda Bar MD - 06/06/2024 5:10 PM EDT MFM ATTENDING I have personally obtained a history and examined the patient with Dr. Syed on rounds. I agree with the assessment and plan as documented in the resident's note. The patient is a 33 y.o. 33w4d admitted overnight for labor. Has mono/di twin that was otherwise uncomplicated. On admission was 2cm dilated. Received BMZ, procardia tocolysis. This afternoon on rounds she is without any complaints and reports good movement. States contractions much improved. No LOF, no VB. Vitals: 06/06/24 1508 BP: 121/68 Pulse: 78 Resp: 16 Temp: 36.7 C (98.1 F) SpO2: 97% Alert and oriented, NAD Gravid nontender abdomen NST: reactive reassuring x 2 Ultrasound today: A: Cephalic, EFW 2081g B: Breech, EFW 2057g Lab Results Component Value Date WBC 6.6 06/06/2024 HGB 11.0 (L) 06/06/2024 HCT 34.2 (L) 06/06/2024 MCV 91.0 06/06/2024 PLT 180 06/06/2024 Plan: BMZ #2 tonight Continue Procardia tocolysis through steroid window. Pateint declined Vanc for GBS prophylaxis (unknown), but ok to stop given current quiescense. Ok to eat and decrease monitoring to TID Trend glucose due to steroids (failed 1hr, had normal 3hr) Once off Procardia, if stable then can anticipate discharge. Can deliver in [place] at 34 weeks, confirmed with Dr. Hart. 35 minutes spent in total floor time today for review of records, patient interview and exam, documentation and coordination of care with care teams. Lucinda Bar MD [facility] 06-06-2024 Note Attestation signed by Lucinda Bar MD at 06/06/2024 5:10 PM MFM ATTENDING I have personally obtained a history and examined the patient with Dr. Syed on rounds. I agree with the assessment and plan as documented in the resident's note. The patient is a 33 y.o. 33w4d admitted overnight for labor. Has mono/di twin that was otherwise uncomplicated. On admission was 2cm dilated. Received BMZ, procardia tocolysis. This afternoon on rounds she is without any complaints and reports good movement. States contractions much improved. No LOF, no VB. Vitals: 06/06/24 1508 BP: 121/68 Pulse: 78 Resp: 16 Temp: 36.7 ?C (98.1 ?F) SpO2: 97% Alert and oriented, NAD Gravid nontender abdomen NST: reactive reassuring x 2 Ultrasound today: A: Cephalic, EFW 2081g B: Breech, EFW 2057g Lab Results Component Value Date WBC 6.6 06/06/2024 HGB 11.0 (L) 06/06/2024 HCT 34.2 (L) 06/06/2024 MCV 91.0 06/06/2024 PLT 180 06/06/2024 Plan: BMZ #2 tonight Continue Procardia tocolysis through steroid window. Pateint declined Vanc for GBS prophylaxis (unknown), but ok to stop given current quiescense. Ok to eat and decrease monitoring to TID Trend glucose due to steroids (failed 1hr, had normal 3hr) Once off Procardia, if stable then can anticipate discharge. Can deliver in [place] at 34 weeks, confirmed with Dr. Hart. 35 minutes spent in total floor time today for review of records, patient interview and exam, documentation and coordination of care with care teams. Lucinda Bar MD Department of Maternal Medicine History and Physical CHIEF COMPLAINT: contractions HISTORY OF PRESENT ILLNESS: The patient is a 33 y.o. female at 33w4d. OB History 4 Para 2 Term 2 AB 1 Living 2 SAB 1 IAB Ectopic Multiple Live Births 2 Patient presents with a chief complaint as above and is being admitted for contractions Transport: Yes, drove herself from [place] Prior Hospitalizations: No Estimated Due Date: Estimated Date of Delivery: 07/21/24 CARE: Complications: [place]-Di twins Heart murmur Obesity Rh incompatibility PAST OB HISTORY: OB History 4 Para 2 Term 2 AB 1 Living 2 SAB 1 IAB Ectopic Multiple Live Births 2 Detailed OB History TSVD SAB TSVD Current Past Medical History: Past Medical History: Diagnosis Date Anemia Gestational hypertension affecting first Heart murmur Past Surgical History: Past Surgical History: Procedure Laterality Date US I&D BREAST ABSCESS DEEP (HISTORICAL) Left WISDOM TOOTH EXTRACTION Allergies: Pcn [penicillins] Social History: Social History Socioeconomic History Marital status: Spouse name: Jad Number of children: Not on file Years of education: Not on file Highest education level: Not on file Occupational History Not on file Tobacco Use Smoking status: Never Smokeless tobacco: Never Vaping Use Vaping status: Never Used Substance and Sexual Activity Alcohol use: Not Currently Drug use: Never Sexual activity: Not on file Other Topics Concern Not on file Social History Narrative Not on file Social Determinants of Health Financial Resource Strain: Low Risk (08/23/2020) Received from [facility] Overall Financial Resource Strain (CARDIA) Difficulty of Paying Living Expenses: Not hard at all Food Insecurity: No Food Insecurity (08/23/2020) Received from [facility] Hunger Vital Sign Worried About Running Out of Food in the Last Year: Never true Ran Out of Food in the Last Year: Never true Transportation Needs: No Transportation Needs (08/23/2020) Received from [facility] PRAPARE - Transportation Lack of Transportation (Medical): No Lack of Transportation (Non-Medical): No Physical Activity: Not on file Stress: Not on file Social Connections: Not on file Intimate Partner Violence: Not on file Housing Stability: Not on file Family History: No family history on file. Medications Prior to Admission: Medications Prior to Admission Medication Sig Dispense Refill Last Dose famotidine (Pepcid) 20 MG tablet Take 20 mg by mouth 2 times daily. 06/05/2024 ferrous sulfate 325 (65 Fe) MG tablet Take 325 mg by mouth daily (with breakfast). 06/05/2024 magnesium oxide (Mag-Ox) 400 mg tablet Take 400 mg by mouth daily. Past Week MV-Min-Fe Fum-FA-DHA ( 1 PO) Take by mouth. 06/05/2024 REVIEW OF SYSTEMS: Review of Systems Constitutional: Negative. HENT: Negative. Respiratory: Negative. Cardiovascular: Negativ (more content not included)... [facility] 06-06-2024 History and physical note Department of Maternal Medicine History and Physical CHIEF COMPLAINT: contractions HISTORY OF PRESENT ILLNESS: The patient is a 33 y.o. female at 33w4d. OB History 4 Para 2 Term 2 AB 1 Living 2 SAB 1 IAB Ectopic Multiple Live Births 2 Patient presents with a chief complaint as above and is being admitted for contractions Transport: Yes, drove herself from [place] Prior Hospitalizations: No Estimated Due Date: Estimated Date of Delivery: 07/21/24 CARE: Complications: [place]-Di twins Heart murmur Obesity Rh incompatibility PAST OB HISTORY: OB History 4 Para 2 Term 2 AB 1 Living 2 SAB 1 IAB Ectopic Multiple Live Births 2 Detailed OB History TSVD SAB TSVD Current Past Medical History: Past Medical History: Diagnosis Date Anemia Gestational hypertension affecting first Heart murmur Past Surgical History: Past Surgical History: Procedure Laterality Date US I&D BREAST ABSCESS DEEP (HISTORICAL) Left WISDOM TOOTH EXTRACTION Allergies: Pcn [penicillins] Social History: Social History Socioeconomic History Marital status: Spouse name: Jad Number of children: Not on file Years of education: Not on file Highest education level: Not on file Occupational History Not on file Tobacco Use Smoking status: Never Smokeless tobacco: Never Vaping Use Vaping status: Never Used Substance and Sexual Activity Alcohol use: Not Currently Drug use: Never Sexual activity: Not on file Other Topics Concern Not on file Social History Narrative Not on file Social Determinants of Health Financial Resource Strain: Low Risk (08/23/2020) Received from [facility] Overall Financial Resource Strain (CARDIA) Difficulty of Paying Living Expenses: Not hard at all Food Insecurity: No Food Insecurity (08/23/2020) Received from [facility] Hunger Vital Sign Worried About Running Out of Food in the Last Year: Never true Ran Out of Food in the Last Year: Never true Transportation Needs: No Transportation Needs (08/23/2020) Received from [facility] PRAPARE - Transportation Lack of Transportation (Medical): No Lack of Transportation (Non-Medical): No Physical Activity: Not on file Stress: Not on file Social Connections: Not on file Intimate Partner Violence: Not on file Housing Stability: Not on file Family History: No family history on file. Medications Prior to Admission: Medications Prior to Admission Medication Sig Dispense Refill Last Dose famotidine (Pepcid) 20 MG tablet Take 20 mg by mouth 2 times daily. 06/05/2024 ferrous sulfate 325 (65 Fe) MG tablet Take 325 mg by mouth daily (with breakfast). 06/05/2024 magnesium oxide (Mag-Ox) 400 mg tablet Take 400 mg by mouth daily. Past Week MV-Min-Fe Fum-FA-DHA ( 1 PO) Take by mouth. 06/05/2024 REVIEW OF SYSTEMS: Review of Systems Constitutional: Negative. HENT: Negative. Respiratory: Negative. Cardiovascular: Negative. Gastrointestinal: Negative. Genitourinary: Positive for pelvic pain. Musculoskeletal: Negative. Neurological: Negative. Labs: CBC: Lab Results Component Value Date WBC 6.6 06/06/2024 RBC 3.76 (L) 06/06/2024 HGB 11.0 (L) 06/06/2024 HCT 34.2 (L) 06/06/2024 MCV 91.0 06/06/2024 MCH 29.3 06/06/2024 MCHC 32.2 06/06/2024 RDW 14.2 06/06/2024 PLT 180 06/06/2024 MPV 11.4 06/06/2024 PHYSICAL EXAM: There were no vitals filed for this visit. General appearance: awake, alert, cooperative, no apparent distress, and appears stated age Neurologic: Awake, alert, oriented to name, place and time. Lungs: No increased work of breathing, good air exchange Abdomen: Soft, non tender, gravid, consistent with her gestational age Sterile Speculum Exam: Membranes: Intact HSV Lesions: not applicable Cervix: 2/50/-3 Contraction frequency: 5-6min 05/12/24: Growth US: Twin A EFW 1654g 63%, AC 60% Twin B EFW 1739g 69%, AC 80% ALPHONSO wnl. MCA doppler wnl. Bladders and stomachs visualized for both. ASSESSMENT AND PLAN: LABOR DELIVERY ??? SCD's ONLY (labor through ambulation) SCD's PLUS Prophylactic Anticoagulation until discharge SCD's PLUS Prophylactic Anticoagulation for 6 weeks SCD's PLUS Therapeutic Anticoagulation for 6 weeks Vaginal Delivery [] BMI ? 40 kg/m2 Delivery All patients Vaginal Delivery [] BMI ? 40 kg/m2 AND [] Antepartum hospitalization ? 72 hours within the past month Delivery 1 Major Risk Factor: [] BMI ? 35 kg/m2 [] Low Risk Thrombophilia [] PPH+RBCs, IR, or operation [] Infection+Antibiotics [] Antepartum hospitalization ? 72 hours within the past month [] PMH: Sickle Cell, SLE, Cardiac Dz, Active IBD, Active Cancer, Nephrotic Syndrome OR 2 Minor Risk Factors: [] Multiple gestation [] Age > 40 [] PPH ? 1,000cc [] (+)FMH of VTE [] Smoker [] Preeclampsia [] BMI ? 40 kg/m2 AND [] Low Risk Thrombophilia OR ANY OF THE FOLLOWING: [] High Risk Thrombophilia without prior VTE [] Low Risk Thrombophilia with (+)FMH of VTE [] Any single prior VTE ANY OF THE FOLLOWING: [] Already on LMWH/UFH [] Multiple prior VTE [] High Risk Thrombophilia with prior VTE Low Risk Thrombophilia: FVL (heterozygous), Prothrombin (heterozygous), Protein C, Protein S High Risk Thrombophilia: FVL (homozygous), Prothrombin (homozygous), FVL+Prothrombin (heterozygous), Antithrombin III, APLS VTE Prophylaxis: Not Indicated Admission: Admit to L&D FHR: Category 1, heart monitoring CEFM Labs: GBS collected GC/CT collected Urine collected FFN not obtained Type&Screen collected Serum Labs CMP Consults: Neonatology Imaging: Indicated/ordered Diet: CLD Testing: TBD Timing and Route of Delivery: TBD Medications: Neuroprotection Not indicated Tocolysis Indicated/ordered Antibiotics Indicated/ordered Steroids: Betamethasone - indicated and ordered Labor - Presented to OSH for contractions, received 1 dose BMZ and transferred here - On presentation, patient overall comfortable appearing - VTX/VTX on BSUS - SVE /-3 - Contractions q 5-6 on presentation - Plan to admit for steroids, Procardia tocolysis, and GBS prophylaxis [place]/Di Twins - Last growth 05/12/24: Twin A EFW 1654g 63%, AC 60%, Twin B EFW 1739g 69%, AC 80%, ALPHONSO wnl. MCA doppler wnl. Bladders and stomachs visualized for both - S/P MFM consult, following - Amniotic fluid and bladder assessment every 2 weeks. - growth assessment every 4 weeks. - Follow up anatomy survey in 2 weeks. - Initiate MCA Doppler at 20 weeks and continue every two weeks. - echocardiogram around 22 weeks gestation, ordered with pediatric cardiology. - testing weekly starting at 32 weeks (or sooner if indicated). - Delivery at 37 weeks (or sooner if indicated). - Low risk NIPT - Repeat growths ordered today - echos obtained March 2024 and wnl - Discussed VTX/VTX at this time, should patient progress in labor, should Twin B rotation, discussed possible need for internal or external version, discussed breech extraction, discussed risk of head entrapment and risk of compromise. Should situation arise, patient desires breech vaginal delivery. 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 REINALDO DICKENS DO 06/06/2024, 6:15 AM Cc: Angeli Gibson DO Associated attestation - Lucinda Bar MD - 06/06/2024 5:10 PM EDT MFM ATTENDING I have personally obtained a history and examined the patient with Dr. Syed on rounds. I agree with the assessment and plan as documented in the resident's note. The patient is a 33 y.o. 33w4d admitted overnight for labor. Has mono/di twin that was otherwise uncomplicated. On admission was 2cm dilated. Received BMZ, procardia tocolysis. This afternoon on rounds she is without any complaints and reports good movement. States contractions much improved. No LOF, no VB. Vitals: 06/06/24 1508 BP: 121/68 Pulse: 78 Resp: 16 Temp: 36.7 C (98.1 F) SpO2: 97% Alert and oriented, NAD Gravid nontender abdomen NST: reactive reassuring x 2 Ultrasound today: A: Cephalic, EFW 2081g B: Breech, EFW 2057g Lab Results Component Value Date WBC 6.6 06/06/2024 HGB 11.0 (L) 06/06/2024 HCT 34.2 (L) 06/06/2024 MCV 91.0 06/06/2024 PLT 180 06/06/2024 Plan: BMZ #2 tonight Continue Procardia tocolysis through steroid window. Pateint declined Vanc for GBS prophylaxis (unknown), but ok to stop given current quiescense. Ok to eat and decrease monitoring to TID Trend glucose due to steroids (failed 1hr, had normal 3hr) Once off Procardia, if stable then can anticipate discharge. Can deliver in [place] at 34 weeks, confirmed with Dr. Hart. 35 minutes spent in total floor time today for review of records, patient interview and exam, documentation and coordination of care with care teams. Lucinda Bar MD documented in this encounter [facility] 06-06-2024 Consult note Formatting of th is note might be different from the original. Images from the original note were not included. Pharmacy Managed Vancomycin Dosing Service Consult Note Consult Date: 06/06/24 Patient Name: Willis Gautam Allergies: Pcn [penicillins] Age: 33 y.o. Sex: female There is no height or weight on file to calculate BMI. DW: 108.5 kg No results found for: CREATININE , BUN , WBC , CRCLEARANCE Calculated CrCl: none mL/min (Cockcroft-Gault) Consulted By: Partima Alberto Infectious Diagnosis: GBS prophylaxis Random Vancomycin Level Due: 06/07/24 at 0430 Assessment/Plan: Doses, serum creatinine, and vancomycin levels interfaced automatically to [facility] and data has been analyzed and interpreted. Start Vancomycin 2000 mg every 8 hours based on patient age, weight, renal function, and infectious diagnosis (20 mg/kg). Will assess random level on 06/07/24 and adjust as appropriate. Trend serum creatinine. Orders placed. Thank you for this consult. Please secure text or call with questions. DATE: 06/06/24 TIME: 4:54 AM Evelia Chin PharmD Clinical Pharmacist Available via Secure Chat [facility] 06-06-2024 Consult note Formatting of th is note might be different from the original. Images from the original note were not included. Pharmacy Managed Vancomycin Dosing Service Consult Note Consult Date: 06/06/24 Patient Name: Willis Gautam Allergies: Pcn [penicillins] Age: 33 y.o. Sex: female There is no height or weight on file to calculate BMI. DW: 108.5 kg No results found for: CREATININE , BUN , WBC , CRCLEARANCE Calculated CrCl: none mL/min (Cockcroft-Gault) Consulted By: Pratima Alberto Infectious Diagnosis: GBS prophylaxis Random Vancomycin Level Due: 06/07/24 at 0430 Assessment/Plan: Doses, serum creatinine, and vancomycin levels interfaced automatically to [employer] and data has been analyzed and interpreted. Start Vancomycin 2000 mg every 8 hours based on patient age, weight, renal function, and infectious diagnosis (20 mg/kg). Will assess random level on 06/07/24 and adjust as appropriate. Trend serum creatinine. Orders placed. Thank you for this consult. Please secure text or call with questions. DATE: 06/06/24 TIME: 4:54 AM Evelia Chin PharmD Clinical Pharmacist Available via Secure Chat documented in this encounter [facility] 06-03-2024 History of Presen t illness Narrative Radiology Service Progress Note PATIENT NAME: Willis Gautam DATE OF SERVICE: June 03, 2024 TIME: 2:03 PM PATIENT IDENTITY VERIFICATION COMPLETED USING TWO (2) IDENTIFIERS: Name and Date of confirmed by patient verbally. FALL SCREENING: Has the patient had 2 falls in the last year or 1 fall with injury or currently using an Ambulatory Assistive Device (Walker, Cane, Wheelchair, Crutches, etc.)? No PATIENT GENDER DATA: Female. status: : No status: NO. PATIENT RELEVANT IMPLANT DATA REVIEWED: Yes PATIENT PRESENTS WITH AN IMPLANTABLE OR ATTACHED SAND MILLER: No RADIOLOGY DEPARTMENT: General X-ray: Exam(s) Completed: Lower Extremity X-Ray(s): Foot, Right PERIPHERAL IV DATA: Not applicable SIGNED BY: RT Oliver(Lanie) June 03, 2024 2:03 PM documented in this encounter [facility] 06-03-2024 Note HNO ID: [id number] Author: LIAM GAVIRIA RT(Laine) Service: ? Author Type: Unattended Ground Sensor Specialist Type: Progress Notes Filed: 06/03/2024 14:11 Note Text: Radiology Service Progress Note PATIENT NAME: Willis Gautam DATE OF SERVICE: June 03, 2024 TIME: 2:03 PM PATIENT IDENTITY VERIFICATION COMPLETED USING TWO (2) IDENTIFIERS: Name and Date of confirmed by patient verbally. FALL SCREENING: Has the patient had 2 falls in the last year or 1 fall with injury or currently using an Ambulatory Assistive Device (Walker, Cane, Wheelchair, Crutches, etc.)? No PATIENT GENDER DATA: Female. status: : No status: NO. PATIENT RELEVANT IMPLANT DATA REVIEWED: Yes PATIENT PRESENTS WITH AN IMPLANTABLE OR ATTACHED SAND MILLER: No RADIOLOGY DEPARTMENT: General X-ray: Exam(s) Completed: Lower Extremity X-Ray(s): Foot, Right PERIPHERAL IV DATA: Not applicable SIGNED BY: Liam Gaviria, RT(R) June 03, 2024 2:03 PM [facility] 06-03-2024 Note HNO ID: [id number] Author: MARY HERRERA APRN.COMMUNITY OUTREACH ADVOCATE Service: ? Author Type: Nurse Practitioner Type: Progress Notes Filed: 06/03/2024 14:39 Note Text: This note was created using NoteWriter. Subjective Willis Gautam is a 33 year old female. 33 year old female with PMH GERD presents for complaints of foot pain. Acute onset 2 weeks ago Right foot Denies trauma or injury Locates pain along lateral aspect Sharp Constant Denies deformity Denies numbness or tingling Denies skin rash or lesions Worse with movement, weight bearing and activity Denies prior history of foot fracture or injury. Of note, she is 33 weeks The history is provided by the patient. No mechanical apprentice was used. Pain (foot) Pain location: right foot. This is a new problem. The current episode started 1 to 4 weeks ago. There has been no history of extremity trauma. The problem occurs constantly. The problem has been waxing and waning. The quality of the pain is described as aching and sharp. The pain is at a severity of 6/10. The pain is moderate. Pertinent negatives include no fever, inability to bear weight, itching, joint locking, joint swelling, limited range of motion, numbness, stiffness or tingling. The symptoms are aggravated by activity. She has tried acetaminophen for the symptoms. The treatment provided mild relief. Family history does not include gout or rheumatoid arthritis. There is no history of diabetes, gout, osteoarthritis or rheumatoid arthritis. PAST MEDICAL HISTORY No date: Benign heart murmur 10/2019: Breast abscess Comment: left No date: extremely dense breast tissue No date: Gestational hypertension 08/23/2020: History of gestational hypertension No date: Small fiber neuropathy PAST SURGICAL HISTORY No date: EXTRACTION, ERUPTED TOOTH OR EXPOSED ROOT (ELEVATION AND/OR FORCEPS REMOVAL) No date: PAST SURGICAL HISTORY OF Comment: removal of bereast abcess ALLERGIES Latex and Penicillins MEDICATIONS magnesium aspart,citrate,oxide (TRIPLE MAGNESIUM COMPLEX) 400 mg magnesium cap Take by mouth as directed. vit no.124/iron/folic ( VITAMIN ORAL) Take by mouth. famotidine (PEPCID ORAL) Take by mouth. FAMILY HISTORY Problem Relation Age of Onset Breast Cancer Mother 53 Hypertension Mother other (equivocal ? SLE) Mother Hypertension Father Ulcerative Colitis Father Colon Cancer Maternal Grandmother Ovarian cancer Other maternal great aunt Parkinson?s Disease Maternal Grandfather other (Lymphoma) Maternal Grandfather No Known Problems Paternal Grandmother Hypertension Paternal Grandfather No Known Problems Daughter Social History Tobacco Use Smoking status: Never Smokeless tobacco: Never Vaping Use Vaping status: Never Used Substance Use Topics Alcohol use: No Drug use: Never Review of Systems Constitutional: Negative for fever. Eyes: Negative for pain, discharge, redness and itching. Respiratory: Negative for apnea, cough, choking and chest tightness. Cardiovascular: Negative for chest pain, palpitations and leg swelling. Gastrointestinal: Negative for abdominal pain, diarrhea, nausea and vomiting. Musculoskeletal: Negative for gout and stiffness. Right foot pain Skin: Negative for color change, itching, pallor, rash and wound. Allergic/Immunologic: Negative for environmental allergies, food allergies and immunocompromised state. Neurological: Negative for dizziness, tingling, facial asymmetry and numbness. Hematological: Negative for adenopathy. Does not bruise/bleed easily. Psychiatric/Behavioral: Negative for agitation and behavioral problems. Objective BP 122/78 Pulse 75 Temp 36.8 ?C (98.3 ?F) (Tympanic) Resp 16 Wt 108.5 kg (239 lb 3.2 oz) LMP 09/17/2023 SpO2 99% BMI 36.37 kg/m? Physical Exam Vitals and nursing note reviewed. Constitutional: General: She is not in acute distress. Appearance: Normal appearance. She is normal weight. She is not ill-appearing, toxic-appearing or diaphoretic. HENT: Head: Normocephalic and atraumatic. Right Ear: Ear canal and external ear normal. Left Ear: Ear canal and external ear normal. Nose: Nose normal. No congestion or rhinorrhea. Mouth/Throat: Mouth: Mucous membranes are moist. Pharynx: No oropharyngeal exudate or posterior oropharyngeal erythema. Eyes: General: Right eye: No discharge. Left eye: No discharge. Extraocular Movements: Extraocular movements intact. Conjunctiva/sclera: Conjunctivae normal. Pupils: Pupils are equal, round, and reactive to light. Cardiovascular: Rate and Rhythm: Normal rate and regular rhythm. Pulses: Normal pulses. Heart sounds: Normal heart sounds. No murmur heard. No friction rub. Pulmonary: Effort: Pulmonary effort is normal. No respiratory distress. Breath sounds: Normal breath sounds. No stridor. No wheezing, rhonchi or rales. Chest: Chest wall: No tenderness. Abdom (more content not included)... [facility] 06-03-2024 History of Presen t illness Narrative This note was created using [employer]. Subjective Willis Gautam is a 33 year old female. 33 year old female with PMH GERD presents for complaints of foot pain. Acute onset 2 weeks ago Right foot Denies trauma or injury Locates pain along lateral aspect Sharp Constant Denies deformity Denies numbness or tingling Denies skin rash or lesions Worse with movement, weight bearing and activity Denies prior history of foot fracture or injury. Of note, she is 33 weeks The history is provided by the patient. No mechanical apprentice was used. Pain (foot) Pain location: right foot. This is a new problem. The current episode started 1 to 4 weeks ago. There has been no history of extremity trauma. The problem occurs constantly. The problem has been waxing and waning. The quality of the pain is described as aching and sharp. The pain is at a severity of 6/10. The pain is moderate. Pertinent negatives include no fever, inability to bear weight, itching, joint locking, joint swelling, limited range of motion, numbness, stiffness or tingling. The symptoms are aggravated by activity. She has tried acetaminophen for the symptoms. The treatment provided mild relief. Family history does not include gout or rheumatoid arthritis. There is no history of diabetes, gout, osteoarthritis or rheumatoid arthritis. PAST MEDICAL HISTORY No date: Benign heart murmur 10/2019: Breast abscess Comment: left No date: extremely dense breast tissue No date: Gestational hypertension 08/23/2020: History of gestational hypertension No date: Small fiber neuropathy PAST SURGICAL HISTORY No date: EXTRACTION, ERUPTED TOOTH OR EXPOSED ROOT (ELEVATION AND/OR FORCEPS REMOVAL) No date: PAST SURGICAL HISTORY OF Comment: removal of bereast abcess ALLERGIES Latex and Penicillins MEDICATIONS magnesium aspart,citrate,oxide (TRIPLE MAGNESIUM COMPLEX) 400 mg magnesium cap Take by mouth as directed. vit no.124/iron/folic ( VITAMIN ORAL) Take by mouth. famotidine (PEPCID ORAL) Take by mouth. FAMILY HISTORY Problem Relation Age of Onset Breast Cancer Mother 53 Hypertension Mother other (equivocal ? SLE) Mother Hypertension Father Ulcerative Colitis Father Colon Cancer Maternal Grandmother Ovarian cancer Other maternal great aunt Parkinson s Disease Maternal Grandfather other (Lymphoma) Maternal Grandfather No Known Problems Paternal Grandmother Hypertension Paternal Grandfather No Known Problems Daughter Social History Tobacco Use Smoking status: Never Smokeless tobacco: Never Vaping Use Vaping status: Never Used Substance Use Topics Alcohol use: No Drug use: Never Review of Systems Constitutional: Negative for fever. Eyes: Negative for pain, discharge, redness and itching. Respiratory: Negative for apnea, cough, choking and chest tightness. Cardiovascular: Negative for chest pain, palpitations and leg swelling. Gastrointestinal: Negative for abdominal pain, diarrhea, nausea and vomiting. Musculoskeletal: Negative for gout and stiffness. Right foot pain Skin: Negative for color change, itching, pallor, rash and wound. Allergic/Immunologic: Negative for environmental allergies, food allergies and immunocompromised state. Neurological: Negative for dizziness, tingling, facial asymmetry and numbness. Hematological: Negative for adenopathy. Does not bruise/bleed easily. Psychiatric/Behavioral: Negative for agitation and behavioral problems. Objective BP 122/78 Pulse 75 Temp 36.8 C (98.3 F) (Tympanic) Resp 16 Wt 108.5 kg (239 lb 3.2 oz) LMP 09/17/2023 SpO2 99% BMI 36.37 kg/m Physical Exam Vitals and nursing note reviewed. Constitutional: General: She is not in acute distress. Appearance: Normal appearance. She is normal weight. She is not ill-appearing, toxic-appearing or diaphoretic. HENT: Head: Normocephalic and atraumatic. Right Ear: Ear canal and external ear normal. Left Ear: Ear canal and external ear normal. Nose: Nose normal. No congestion or rhinorrhea. Mouth/Throat: Mouth: Mucous membranes are moist. Pharynx: No oropharyngeal exudate or posterior oropharyngeal erythema. Eyes: General: Right eye: No discharge. Left eye: No discharge. Extraocular Movements: Extraocular movements intact. Conjunctiva/sclera: Conjunctivae normal. Pupils: Pupils are equal, round, and reactive to light. Cardiovascular: Rate and Rhythm: Normal rate and regular rhythm. Pulses: Normal pulses. Heart sounds: Normal heart sounds. No murmur heard. No friction rub. Pulmonary: Effort: Pulmonary effort is normal. No respiratory distress. Breath sounds: Normal breath sounds. No stridor. No wheezing, rhonchi or rales. Chest: Chest wall: No tenderness. Abdominal: General: Abdomen is flat. There is no distension. Palpations: Abdomen is soft. There is no mass. Tenderness: There is no abdominal tenderness. There is no right CVA tenderness, left CVA tenderness, guarding or rebound. Hernia: No hernia is present. Musculoskeletal: General: Tenderness present. No swelling, deformity or signs of injury. Normal range of motion. Cervical back: Normal range of motion and neck supple. No rigidity. Right lower leg: No edema. Left lower leg: No edema. Comments: Generalized tenderness noted along the lateral aspect of right foot with palpation No ecchymosis. No abscess No deformity +neuro +sensation Lymphadenopathy: Cervical: No cervical adenopathy. Skin: General: Skin is warm and dry. Coloration: Skin is not jaundiced or pale. Findings: No bruising, erythema, lesion or rash. Neurological: General: No focal deficit present. Mental Status: She is alert and oriented to person, place, and time. Cranial Nerves: No cranial nerve deficit. Sensory: No sensory deficit. Motor: No weakness. Coordination: Coordination normal. Gait: Gait normal. Psychiatric: Mood and Affect: Mood normal. Behavior: Behavior normal. Thought Content: Thought content normal. Judgment: Judgment normal. Assessment and Plan ASSESSMENT/PLAN: 1. Foot pain, right - ICD9: 729.5, ICD10: M79.671 X 2 weeks No known injury or trauma No red flags She is 33 weeks - XR FOOT GENERAL 3V AP/LAT/OBL RIGHT-negative for acute process Unsure of exact etiology of foot pain RICE OTC Tylenol F/U with ortho and or podiatry for continued sx. Mary Herrera APRN.IRAJ documented in this encounter [facility] 01-14-2024 Note HNO ID: [id number] Author: KHURRAM ROMERO PA-C Service: ? Author Type: Physician Viscera Washer Type: Progress Notes Filed: 01/14/2024 14:09 Note Text: This note was created using [employer]. Subjective Willis Gautam is a 33 year old female. HPI Patient presents with a chief complaint of sinus pressure and congestion for 2 weeks. She states she had sore throat congestion cough symptoms starting about 2 weeks ago. She thought she was getting better however started to get worsening sinus pressure in the left side of her face into her teeth. She has had a headache. No fever. She is currently 13 weeks with twins. Denies abdominal pain or spotting. She denies diarrhea or vomiting. Review of Systems Constitutional: Negative. HENT: Positive for congestion, ear pain, sinus pressure and sinus pain. Respiratory: Negative. Cardiovascular: Negative. Gastrointestinal: Negative. Genitourinary: Negative. Musculoskeletal: Negative. All other systems reviewed and are negative. PAST MEDICAL HISTORY Diagnosis Date Benign heart murmur Breast abscess 10/2019 left extremely dense breast tissue Gestational hypertension History of gestational hypertension 08/23/2020 Small fiber neuropathy Current Outpatient Medications Medication Sig Dispense Refill cefdinir (OMNICEF) 300 mg capsule Take 1 capsule by mouth two times a day for 7 days. 14 capsule 0 No current facility-administered medications for this visit. PAST SURGICAL HISTORY Procedure Laterality Date EXTRACTION, ERUPTED TOOTH OR EXPOSED ROOT (ELEVATION AND/OR FORCEPS REMOVAL) PAST SURGICAL HISTORY OF removal of bereast abcess FAMILY HISTORY Problem Relation Age of Onset Breast Cancer Mother 53 Hypertension Mother other (equivocal ? SLE) Mother Hypertension Father Ulcerative Colitis Father Colon Cancer Maternal Grandmother Ovarian cancer Other maternal great aunt Parkinson?s Disease Maternal Grandfather other (Lymphoma) Maternal Grandfather No Known Problems Paternal Grandmother Hypertension Paternal Grandfather No Known Problems Daughter Social History Tobacco Use Smoking status: Never Smokeless tobacco: Never Vaping Use Vaping Use: Never used Substance Use Topics Alcohol use: No Drug use: Never Objective BP 116/82 Pulse 90 Temp 36.9 ?C (98.5 ?F) Resp 20 Wt 98.1 kg (216 lb 4.3 oz) LMP 09/17/2023 SpO2 98% BMI 32.88 kg/m? Physical Exam Vitals reviewed. Constitutional: Appearance: Normal appearance. HENT: Head: Normocephalic and atraumatic. Right Ear: Tympanic membrane, ear canal and external ear normal. Left Ear: Tympanic membrane, ear canal and external ear normal. Nose: Congestion present. Right Sinus: No maxillary sinus tenderness or frontal sinus tenderness. Left Sinus: Maxillary sinus tenderness and frontal sinus tenderness present. Mouth/Throat: Mouth: Mucous membranes are moist. Pharynx: Oropharynx is clear. Cardiovascular: Rate and Rhythm: Normal rate and regular rhythm. Heart sounds: Normal heart sounds. Pulmonary: Effort: Pulmonary effort is normal. Breath sounds: Normal breath sounds. Musculoskeletal: Cervical back: Neck supple. Skin: General: Skin is warm and dry. Neurological: General: No focal deficit present. Mental Status: She is alert. Assessment and Plan ASSESSMENT/PLAN: 1. Bacterial sinusitis - ICD9: 473.9, 041.9, ICD10: J32.9, B96.89 - Will begin treatment with as per antibiotic as written, see orders- omnicef due to pcn allergy, has tolerated before. - Supportive care with plenty of fluids, rest, and analgesia prn. - Follow up in 3-5 days if symptoms persist or worsen. Khurram Romero PA-C [facility] 01-14-2024 History of Presen t illness Narrative This note was created using [employer]. Subjective Willis Gautam is a 33 year old female. HPI Patient presents with a chief complaint of sinus pressure and congestion for 2 weeks. She states she had sore throat congestion cough symptoms starting about 2 weeks ago. She thought she was getting better however started to get worsening sinus pressure in the left side of her face into her teeth. She has had a headache. No fever. She is currently 13 weeks with twins. Denies abdominal pain or spotting. She denies diarrhea or vomiting. Review of Systems Constitutional: Negative. HENT: Positive for congestion, ear pain, sinus pressure and sinus pain. Respiratory: Negative. Cardiovascular: Negative. Gastrointestinal: Negative. Genitourinary: Negative. Musculoskeletal: Negative. All other systems reviewed and are negative. PAST MEDICAL HISTORY Diagnosis Date Benign heart murmur Breast abscess 10/2019 left extremely dense breast tissue Gestational hypertension History of gestational hypertension 08/23/2020 Small fiber neuropathy Current Outpatient Medications Medication Sig Dispense Refill cefdinir (OMNICEF) 300 mg capsule Take 1 capsule by mouth two times a day for 7 days. 14 capsule 0 No current facility-administered medications for this visit. PAST SURGICAL HISTORY Procedure Laterality Date EXTRACTION, ERUPTED TOOTH OR EXPOSED ROOT (ELEVATION AND/OR FORCEPS REMOVAL) PAST SURGICAL HISTORY OF removal of bereast abcess FAMILY HISTORY Problem Relation Age of Onset Breast Cancer Mother 53 Hypertension Mother other (equivocal ? SLE) Mother Hypertension Father Ulcerative Colitis Father Colon Cancer Maternal Grandmother Ovarian cancer Other maternal great aunt Parkinson s Disease Maternal Grandfather other (Lymphoma) Maternal Grandfather No Known Problems Paternal Grandmother Hypertension Paternal Grandfather No Known Problems Daughter Social History Tobacco Use Smoking status: Never Smokeless tobacco: Never Vaping Use Vaping Use: Never used Substance Use Topics Alcohol use: No Drug use: Never Objective BP 116/82 Pulse 90 Temp 36.9 C (98.5 F) Resp 20 Wt 98.1 kg (216 lb 4.3 oz) LMP 09/17/2023 SpO2 98% BMI 32.88 kg/m Physical Exam Vitals reviewed. Constitutional: Appearance: Normal appearance. HENT: Head: Normocephalic and atraumatic. Right Ear: Tympanic membrane, ear canal and external ear normal. Left Ear: Tympanic membrane, ear canal and external ear normal. Nose: Congestion present. Right Sinus: No maxillary sinus tenderness or frontal sinus tenderness. Left Sinus: Maxillary sinus tenderness and frontal sinus tenderness present. Mouth/Throat: Mouth: Mucous membranes are moist. Pharynx: Oropharynx is clear. Cardiovascular: Rate and Rhythm: Normal rate and regular rhythm. Heart sounds: Normal heart sounds. Pulmonary: Effort: Pulmonary effort is normal. Breath sounds: Normal breath sounds. Musculoskeletal: Cervical back: Neck supple. Skin: General: Skin is warm and dry. Neurological: General: No focal deficit present. Mental Status: She is alert. Assessment and Plan ASSESSMENT/PLAN: 1. Bacterial sinusitis - ICD9: 473.9, 041.9, ICD10: J32.9, B96.89 - Will begin treatment with as per antibiotic as written, see orders- omnicef due to pcn allergy, has tolerated before. - Supportive care with plenty of fluids, rest, and analgesia prn. - Follow up in 3-5 days if symptoms persist or worsen. Khurram Romero PA-C documented in this encounter [facility] 10-11-2023 Note HNO ID: [id number] Author: MARY RIVERA RDMS Service: ? Author Type: Tourist Camp Attendant Type: Progress Notes Filed: 10/11/2023 10:19 Note Text: Radiology Service Progress Note PATIENT NAME: Willis Gautam DATE OF SERVICE: October 11, 2023 TIME: 10:18 AM PATIENT IDENTITY VERIFICATION COMPLETED USING TWO (2) IDENTIFIERS: Name and Date of confirmed by patient verbally. FALL SCREENING: Has the patient had 2 falls in the last year or 1 fall with injury or currently using an Ambulatory Assistive Device (Walker, Cane, Wheelchair, Crutches, etc.)? No PATIENT GENDER DATA: Female. status: : No status: NO. PATIENT RELEVANT IMPLANT DATA REVIEWED: Not Applicable RADIOLOGY DEPARTMENT: Ultrasound PERIPHERAL IV DATA: Not applicable SIGNED BY: Mary Rivear RDMS RVT October 11, 2023 10:18 AM [facility] 09-28-2023 Note HNO ID: [id number] Author: Ellen Centeno MD Service: ? Author Type: Physician Type: Progress Notes Filed: 09/28/2023 2:21 PM Note Text: Willis Gautam is a 32 year old female who presents for problem visit. HPI: Patient presents with spotting after menses that lasts of to 4 days. Her menses lasts 2-5 days and then the spotting starts within a day. She has some cramping but denies other pain. Also she has been trying to get for 8 months and usually it happens quickly for her. 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 History LMP: 09/17/2023, Having periods Age at Menarche: Age at First : Age at Menopause: Gas Dispenser History Comments: Sexual Activity: Yes; Male Contraception: None PAST MEDICAL HISTORY Diagnosis Date Benign heart murmur Breast abscess 10/2019 left extremely dense breast tissue Gestational hypertension History of gestational hypertension 08/23/2020 Small fiber neuropathy PAST SURGICAL HISTORY Procedure Laterality Date EXTRACTION, ERUPTED TOOTH OR EXPOSED ROOT (ELEVATION AND/OR FORCEPS REMOVAL) PAST SURGICAL HISTORY OF removal of bereast abcess FAMILY HISTORY Problem Relation Age of Onset Breast Cancer Mother 53 Hypertension Mother other (equivocal ? SLE) Mother Hypertension Father Ulcerative Colitis Father Colon Cancer Maternal Grandmother Ovarian cancer Other maternal great aunt Parkinson?s Disease Maternal Grandfather other (Lymphoma) Maternal Grandfather No Known Problems Paternal Grandmother Hypertension Paternal Grandfather No Known Problems Daughter Social History Tobacco Use Smoking status: Never Smokeless tobacco: Never Vaping Use Vaping Use: Never used Substance Use Topics Alcohol use: No Drug use: Never No current outpatient medications on file. No current facility-administered medications for this visit. Allergies As of Date: 09/28/2023 Allergen Noted Reaction LATEX 03/17/2021 Other: See Comments PENICILLINS 07/04/2014 Rash and Hives Fully Assessed 09/28/2023 Allergies and current medication updated:Yes EXAM: BP 110/80 Wt 213 lb 12.8 oz (97.0kg) LMP 09/17/2023 GENERAL: pleasant, female in no apparent distress ASSESSMENT AND PLAN: 32yo female with concerns Discussed that heavier flow followed by spotting could be a normal menstrual cycle since the bleeding typically last 6-9 days. Will check pelvic US. Also discussed that it can often take 12 months to conceive. All questions answered. Medical Decision Making: Problems: Low: Acute, uncomplicated illness or injury Data: Unique test(s) ordered: 1 Risk: Low: Low risk from testing/treatment Medical Decision Making Level: 3 - Low ] Ellen Centeno MD [facility] 08-04-2023 Note HNO ID: [id number] Author: Tiera Meyer RT(R) Service: ? Author Type: Technologist Type: Progress Notes Filed: 08/04/2023 2:34 PM Note Text: Summary: MRI Radiology Service Progress Note PATIENT NAME: Willis Gautam DATE OF SERVICE: August 04, 2023 TIME: 2:33 PM PATIENT IDENTITY VERIFICATION COMPLETED USING TWO (2) IDENTIFIERS: Name and Date of confirmed by patient verbally and Name and Date of confirmed by identification band. FALL SCREENING: Has the patient had 2 falls in the last year or 1 fall with injury or currently using an Ambulatory Assistive Device (Walker, Cane, Wheelchair, Crutches, etc.)? No PATIENT GENDER DATA: Female. status: : No status: NO. PATIENT RELEVANT IMPLANT DATA REVIEWED: Yes RADIOLOGY DEPARTMENT: MR; Exam(s) Completed: Spine: Cervical spine PERIPHERAL IV DATA: Not applicable SIGNED BY: RT Jrodan(R) August 04, 2023 2:33 PM [facility] 08-04-2023 History of Presen t illness Narrative Summary: MRI Radiology Service Progress Note PATIENT NAME: Willis Gautam DATE OF SERVICE: August 04, 2023 TIME: 2:33 PM PATIENT IDENTITY VERIFICATION COMPLETED USING TWO (2) IDENTIFIERS: Name and Date of confirmed by patient verbally and Name and Date of confirmed by identification band. FALL SCREENING: Has the patient had 2 falls in the last year or 1 fall with injury or currently using an Ambulatory Assistive Device (Walker, Cane, Wheelchair, Crutches, etc.)? No PATIENT GENDER DATA: Female. status: : No status: NO. PATIENT RELEVANT IMPLANT DATA REVIEWED: Yes RADIOLOGY DEPARTMENT: MR; Exam(s) Completed: Spine: Cervical spine PERIPHERAL IV DATA: Not applicable SIGNED BY: RT Jordan(R) August 04, 2023 2:33 PM documented in this encounter [facility] 07-20-2023 Note HNO ID: [id number] Author: Danae Marc APRN.CNM Service: ? Author Type: Manufactured Buildings Supervisor Type: Progress Notes Filed: 07/20/2023 4:32 PM Note Text: Willis Gautam is a 32 year old female who presents for problem visit of hormone imbalance. She reports feeling off since delivery of son 2 years ago. Feels like cycles are irregular and mood changes after cycle ends. Voicing frustration due to actively trying to conceive for the past 6 months and not . She is tracking cycles and just bought ovulation kits to use. Previous 2 pregnancies were unplanned and with same partner. Denies any recent changes in health status or medications. Cycles are approximately every 22-28 days and last anywhere from 2 days to several with spotting. Does not miss cycles. Seen by PCP and was sent here for evaluation and serum hormone levels. 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 History LMP: 06/28/2023, Having periods Age at Menarche: Age at First : Age at Menopause: Gas Dispenser History Comments: Sexual Activity: Yes; Male Contraception: None PAST MEDICAL HISTORY Diagnosis Date Benign heart murmur Breast abscess 10/2019 left extremely dense breast tissue Gestational hypertension Small fiber neuropathy PAST SURGICAL HISTORY Procedure Laterality Date EXTRACTION, ERUPTED TOOTH OR EXPOSED ROOT (ELEVATION AND/OR FORCEPS REMOVAL) PAST SURGICAL HISTORY OF removal of bereast abcess FAMILY HISTORY Problem Relation Age of Onset Breast Cancer Mother 53 Hypertension Mother other (equivocal ? SLE) Mother Hypertension Father Ulcerative Colitis Father Colon Cancer Maternal Grandmother Ovarian cancer Other maternal great aunt Parkinson?s Disease Maternal Grandfather other (Lymphoma) Maternal Grandfather No Known Problems Paternal Grandmother Hypertension Paternal Grandfather No Known Problems Daughter Social History Tobacco Use Smoking status: Never Smokeless tobacco: Never Vaping Use Vaping Use: Never used Substance Use Topics Alcohol use: No Drug use: Never No current outpatient medications on file. No current facility-administered medications for this visit. Allergies As of Date: 07/20/2023 Allergen Noted Reaction LATEX 03/17/2021 Other: See Comments PENICILLINS 07/04/2014 Rash and Hives Fully Assessed 07/20/2023 REVIEW OF SYSTEMS Abdomen: No bloating, early satiety, indigestion, or increased flatulence. No abdominal pain, nausea, vomiting, diarrhea, or constipation. Bladder: No dysuria, gross hematuria, urinary frequency, urinary urgency, or incontinence. Breast: No breast lumps, nipple d/c, overlying skin changes, redness or skin retraction. Expanded ROS: N/A Allergies and current medication updated:Yes EXAM: BP 118/64 Wt 211 lb (95.7kg) LMP 06/28/2023 GENERAL: pleasant, female in no apparent distress HEENT: Normocephalic and atraumatic NECK: Supple and full range of motion DERMATOLOGY: Normal and without lesions BREAST: deferred CHEST: Normal inspiratory effort ABDOMEN: Deferred PELVIC: deferred BIMANUAL: deferred NEURO: alert and oriented x3,exam grossly non-focal EXTREMITIES: normal ASSESSMENT/PLAN: 1. Female infertility - ICD9: 628.9, ICD10: N97.9 (primary diagnosis) - Briefly reviewed consult to [facility]- declines - May have 's sperm count/mobility evaluated - May be interested in trying Clomid in the future - Pelvic US on 02/15/23- normal (other than small ovarian cyst) - TSH BLD - PROLACTIN BLD - TESTOSTERONE, FREE AND TOTAL - DHEA-S BLD - HYDROXYPROGESTERO-17- day 21 of cycle - FSH BLD- day 3 of cycle - LUTEINIZING HORMONE - ESTRADIOL-17B BLD- day 3 of cycle - HGB A1C - GLUCOSE FASTING BLD 2. Irregular periods/menstrual cycles - ICD9: 626.4, ICD10: N92.6 Will follow up after lab results [facility] History of Presen t illness Narrative Willis Gautam is a 32 year old female who presents for problem visit of hormone imbalance. She reports feeling off since delivery of son 2 years ago. Feels like cycles are irregular and mood changes after cycle ends. Voicing frustration due to actively trying to conceive for the past 6 months and not . She is tracking cycles and just bought ovulation kits to use. Previous 2 pregnancies were unplanned and with same partner. Denies any recent changes in health status or medications. Cycles are approximately every 22-28 days and last anywhere from 2 days to several with spotting. Does not miss cycles. Seen by PCP and was sent here for evaluation and serum hormone levels. 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 History LMP: 06/28/2023, Having periods Age at Menarche: Age at First : Age at Menopause: Gas Dispenser History Comments: Sexual Activity: Yes; Male Contraception: None PAST MEDICAL HISTORY Diagnosis Date Benign heart murmur Breast abscess 10/2019 left extremely dense breast tissue Gestational hypertension Small fiber neuropathy PAST SURGICAL HISTORY Procedure Laterality Date EXTRACTION, ERUPTED TOOTH OR EXPOSED ROOT (ELEVATION AND/OR FORCEPS REMOVAL) PAST SURGICAL HISTORY OF removal of bereast abcess FAMILY HISTORY Problem Relation Age of Onset Breast Cancer Mother 53 Hypertension Mother other (equivocal ? SLE) Mother Hypertension Father Ulcerative Colitis Father Colon Cancer Maternal Grandmother Ovarian cancer Other maternal great aunt Parkinson s Disease Maternal Grandfather other (Lymphoma) Maternal Grandfather No Known Problems Paternal Grandmother Hypertension Paternal Grandfather No Known Problems Daughter Social History Tobacco Use Smoking status: Never Smokeless tobacco: Never Vaping Use Vaping Use: Never used Substance Use Topics Alcohol use: No Drug use: Never No current outpatient medications on file. No current facility-administered medications for this visit. Allergies As of Date: 07/20/2023 Allergen Noted Reaction LATEX 03/17/2021 Other: See Comments PENICILLINS 07/04/2014 Rash and Hives Fully Assessed 07/20/2023 REVIEW OF SYSTEMS Abdomen: No bloating, early satiety, indigestion, or increased flatulence. No abdominal pain, nausea, vomiting, diarrhea, or constipation. Bladder: No dysuria, gross hematuria, urinary frequency, urinary urgency, or incontinence. Breast: No breast lumps, nipple d/c, overlying skin changes, redness or skin retraction. Expanded ROS: N/A Allergies and current medication updated:Yes EXAM: BP 118/64 Wt 211 lb (95.7kg) LMP 06/28/2023 GENERAL: pleasant, female in no apparent distress HEENT: Normocephalic and atraumatic NECK: Supple and full range of motion DERMATOLOGY: Normal and without lesions BREAST: deferred CHEST: Normal inspiratory effort ABDOMEN: Deferred PELVIC: deferred BIMANUAL: deferred NEURO: alert and oriented x3,exam grossly non-focal EXTREMITIES: normal ASSESSMENT/PLAN: 1. Female infertility - ICD9: 628.9, ICD10: N97.9 (primary diagnosis) - Briefly reviewed consult to [facility]- declines - May have 's sperm count/mobility evaluated - May be interested in trying Clomid in the future - Pelvic US on 02/15/23- normal (other than small ovarian cyst) - TSH BLD - PROLACTIN BLD - TESTOSTERONE, FREE AND TOTAL - DHEA-S BLD - HYDROXYPROGESTERO-17- day 21 of cycle - FSH BLD- day 3 of cycle - LUTEINIZING HORMONE - ESTRADIOL-17B BLD- day 3 of cycle - HGB A1C - GLUCOSE FASTING BLD 2. Irregular periods/menstrual cycles - ICD9: 626.4, ICD10: N92.6 Will follow up after lab results Danae Marc APRN.CNM documented in this encounter [facility] 07-02-2023 Miscellaneous Notes Please notify patient that she should come in for a visit to discuss. Thank you .Danae Marc APRN.CNM Please see pt's mychart message and advise. Mei Clark LPN documented in this encounter [facility] 06-10-2023 Note HNO ID: [id number] Author: Mike Mccarthy APRN.IRAJ Service: ? Author Type: Nurse Practitioner Type: Progress Notes Filed: 06/10/2023 10:22 AM Note Text: Subjective HPI Nontoxic-appearing female presents urgent care chief complaint neck and back pain. Duration of symptoms 1 day. Associated symptoms neck and back discomfort. Patient states she has chronic back pain and she has been under care for this condition for the last year. Has noticed increased back pain and neck pain the last 24 hours. States she was playing with her children when she noticed that this discomfort. Does not know if she moves wrong. She did take Motrin this did help. Presents today for evaluation. Describes discomfort 3 out of 10. States she has a burning nervelike sensation in her back and neck. States yesterday she was unable to move her neck due to discomfort she is able to move today. Has not taken any OTC medications in the last 12 hours. This denies any trauma. No decreased range of motion of neck. No saddle anesthesia or incontinence. Denies any fever body aches chills productive cough chest pain shortness of breath pleuritic pain hemoptysis nausea vomiting abdominal pain change in bowel or bladder habits. Past medical history prescription medication use and allergies reviewed. .Patient presents with: Neck Pain: back of neck x 1 day, chronic, burning sensation neck, back, chest and arms PAST MEDICAL HISTORY Diagnosis Date Benign heart murmur Breast abscess 10/2019 left extremely dense breast tissue Gestational hypertension Small fiber neuropathy PAST SURGICAL HISTORY Procedure Laterality Date EXTRACTION, ERUPTED TOOTH OR EXPOSED ROOT (ELEVATION AND/OR FORCEPS REMOVAL) PAST SURGICAL HISTORY OF removal of bereast abcess ALLERGIES Latex and Penicillins MEDICATIONS loratadine (CLARITIN) 10 mg tablet Take 1 tablet by mouth once daily. (Patient not taking: Reported on 07/28/2022) escitalopram oxalate (LEXAPRO) 10 mg tablet Take 0.5 tablets by mouth once daily. (Patient not taking: Reported on 09/10/2022) Magnesium 200 mg tab Take by mouth. (Patient not taking: Reported on 05/10/2022) FAMILY HISTORY Problem Relation Age of Onset Breast Cancer Mother 53 Hypertension Mother other (equivocal ? SLE) Mother Hypertension Father Ulcerative Colitis Father Colon Cancer Maternal Grandmother Ovarian cancer Other maternal great aunt Parkinson?s Disease Maternal Grandfather other (Lymphoma) Maternal Grandfather No Known Problems Paternal Grandmother Hypertension Paternal Grandfather No Known Problems Daughter Social History Tobacco Use Smoking status: Never Smokeless tobacco: Never Vaping Use Vaping Use: Never used Substance Use Topics Alcohol use: No Drug use: Never BP 102/66 Pulse 90 Temp 36.3 ?C (97.4 ?F) Resp 16 Wt 94.8 kg (209 lb) LMP 07/14/2022 SpO2 99% BMI 31.78 kg/m? Review of Systems Constitutional: Negative for chills, fever and malaise/fatigue. HENT: Negative for congestion, ear discharge, ear pain, sinus pain and sore throat. Eyes: Negative for blurred vision, pain, discharge and redness. Respiratory: Negative for cough, hemoptysis, sputum production, shortness of breath, wheezing and stridor. Cardiovascular: Negative for chest pain. Gastrointestinal: Negative for abdominal pain, diarrhea, nausea and vomiting. Musculoskeletal: Positive for back pain and neck pain. Negative for falls, joint pain and myalgias. Skin: Negative for itching and rash. Neurological: Negative for dizziness and headaches. Objective Physical Exam Constitutional: General: She is not in acute distress. Appearance: She is not diaphoretic. HENT: Head: Normocephalic. Jaw: No trismus, tenderness, swelling or pain on movement. Mouth/Throat: Mouth: Mucous membranes are moist. Pharynx: Oropharynx is clear. Uvula midline. No pharyngeal swelling, oropharyngeal exudate, posterior oropharyngeal erythema or uvula swelling. Eyes: Conjunctiva/sclera: Conjunctivae normal. Pupils: Pupils are equal, round, and reactive to light. Cardiovascular: Rate and Rhythm: Normal rate and regular rhythm. Heart sounds: Normal heart sounds. Pulmonary: Effort: Pulmonary effort is normal. No tachypnea, accessory muscle usage or respiratory distress. Breath sounds: Normal breath sounds. No stridor. No wheezing, rhonchi or rales. Abdominal: General: There is no distension. Palpations: Abdomen is soft. Tenderness: There is no abdominal tenderness. There is no guarding or rebound. Musculoskeletal: Cervical back: Normal range of motion and neck supple. No edema, erythema, signs of trauma, rigidity, torticollis, tenderness or crepitus. Muscular tenderness present. No pain with movement or spinous process tenderness. Normal range of motion. Lymphadenopathy: Cervical: No cervical adenopathy. Skin: General: Skin is warm and dry. Neurologica (more content not included)... [facility] 06-10-2023 History of Presen t illness Narrative Subjective HPI Nontoxic-appearing female presents urgent care chief complaint neck and back pain. Duration of symptoms 1 day. Associated symptoms neck and back discomfort. Patient states she has chronic back pain and she has been under care for this condition for the last year. Has noticed increased back pain and neck pain the last 24 hours. States she was playing with her children when she noticed that this discomfort. Does not know if she moves wrong. She did take Motrin this did help. Presents today for evaluation. Describes discomfort 3 out of 10. States she has a burning nervelike sensation in her back and neck. States yesterday she was unable to move her neck due to discomfort she is able to move today. Has not taken any OTC medications in the last 12 hours. This denies any trauma. No decreased range of motion of neck. No saddle anesthesia or incontinence. Denies any fever body aches chills productive cough chest pain shortness of breath pleuritic pain hemoptysis nausea vomiting abdominal pain change in bowel or bladder habits. Past medical history prescription medication use and allergies reviewed. .Patient presents with: Neck Pain: back of neck x 1 day, chronic, burning sensation neck, back, chest and arms PAST MEDICAL HISTORY Diagnosis Date Benign heart murmur Breast abscess 10/2019 left extremely dense breast tissue Gestational hypertension Small fiber neuropathy PAST SURGICAL HISTORY Procedure Laterality Date EXTRACTION, ERUPTED TOOTH OR EXPOSED ROOT (ELEVATION AND/OR FORCEPS REMOVAL) PAST SURGICAL HISTORY OF removal of bereast abcess ALLERGIES Latex and Penicillins MEDICATIONS loratadine (CLARITIN) 10 mg tablet Take 1 tablet by mouth once daily. (Patient not taking: Reported on 07/28/2022) escitalopram oxalate (LEXAPRO) 10 mg tablet Take 0.5 tablets by mouth once daily. (Patient not taking: Reported on 09/10/2022) Magnesium 200 mg tab Take by mouth. (Patient not taking: Reported on 05/10/2022) FAMILY HISTORY Problem Relation Age of Onset Breast Cancer Mother 53 Hypertension Mother other (equivocal ? SLE) Mother Hypertension Father Ulcerative Colitis Father Colon Cancer Maternal Grandmother Ovarian cancer Other maternal great aunt Parkinson s Disease Maternal Grandfather other (Lymphoma) Maternal Grandfather No Known Problems Paternal Grandmother Hypertension Paternal Grandfather No Known Problems Daughter Social History Tobacco Use Smoking status: Never Smokeless tobacco: Never Vaping Use Vaping Use: Never used Substance Use Topics Alcohol use: No Drug use: Never BP 102/66 Pulse 90 Temp 36.3 C (97.4 F) Resp 16 Wt 94.8 kg (209 lb) LMP 07/14/2022 SpO2 99% BMI 31.78 kg/m Review of Systems Constitutional: Negative for chills, fever and malaise/fatigue. HENT: Negative for congestion, ear discharge, ear pain, sinus pain and sore throat. Eyes: Negative for blurred vision, pain, discharge and redness. Respiratory: Negative for cough, hemoptysis, sputum production, shortness of breath, wheezing and stridor. Cardiovascular: Negative for chest pain. Gastrointestinal: Negative for abdominal pain, diarrhea, nausea and vomiting. Musculoskeletal: Positive for back pain and neck pain. Negative for falls, joint pain and myalgias. Skin: Negative for itching and rash. Neurological: Negative for dizziness and headaches. Objective Physical Exam Constitutional: General: She is not in acute distress. Appearance: She is not diaphoretic. HENT: Head: Normocephalic. Jaw: No trismus, tenderness, swelling or pain on movement. Mouth/Throat: Mouth: Mucous membranes are moist. Pharynx: Oropharynx is clear. Uvula midline. No pharyngeal swelling, oropharyngeal exudate, posterior oropharyngeal erythema or uvula swelling. Eyes: Conjunctiva/sclera: Conjunctivae normal. Pupils: Pupils are equal, round, and reactive to light. Cardiovascular: Rate and Rhythm: Normal rate and regular rhythm. Heart sounds: Normal heart sounds. Pulmonary: Effort: Pulmonary effort is normal. No tachypnea, accessory muscle usage or respiratory distress. Breath sounds: Normal breath sounds. No stridor. No wheezing, rhonchi or rales. Abdominal: General: There is no distension. Palpations: Abdomen is soft. Tenderness: There is no abdominal tenderness. There is no guarding or rebound. Musculoskeletal: Cervical back: Normal range of motion and neck supple. No edema, erythema, signs of trauma, rigidity, torticollis, tenderness or crepitus. Muscular tenderness present. No pain with movement or spinous process tenderness. Normal range of motion. Lymphadenopathy: Cervical: No cervical adenopathy. Skin: General: Skin is warm and dry. Neurological: Mental Status: She is alert and oriented to person, place, and time. ASSESSMENT/PLAN: 1. Chronic neck and back pain - ICD9: 723.1, 724.5, 338.29, ICD10: M54.2, M54.9, G89.29 Diagnosis chronic neck and back pain. Placed on prednisone burst. Will not take with NSAIDs. Follow-up with PCP and chiropractic next 1 to 2 days reevaluation. Red flags prompt reevaluation discussed. Patient was educated on supportive therapies. Patient will follow up with primary care provider as needed. Patient was instructed to immediately proceed to emergency room for any new, worsening, or symptoms lasting longer than anticipated. The patient's clinical presentation is otherwise unremarkable at this time. Based on exam and clinical finding, the patient is stable for discharge. Plan of care was discussed with patient. Patient verbalizes understanding and agrees to plan of care. This note was generated using [employer] software. It may contain errors in wording, punctuation, or spelling. Mike Mccarthy APRN.IRAJ documented in this encounter [facility] 02-21-2023 History of Presen t illness Narrative Radiology Service Progress Note PATIENT NAME: Willis Gautam DATE OF SERVICE: February 21, 2023 TIME: 9:56 AM PATIENT IDENTITY VERIFICATION COMPLETED USING TWO (2) IDENTIFIERS: Name and Date of confirmed by patient verbally. FALL SCREENING: Has the patient had 2 falls in the last year or 1 fall with injury or currently using an Ambulatory Assistive Device (Walker, Cane, Wheelchair, Crutches, etc.)? No PATIENT GENDER DATA: Female. status: : No status: NO. PATIENT RELEVANT IMPLANT DATA REVIEWED: Not Applicable RADIOLOGY DEPARTMENT: Ultrasound PERIPHERAL IV DATA: Not applicable SIGNED BY: Mary Rivera RDMS RVT February 21, 2023 9:56 AM documented in this encounter [facility] 09-27-2022 History of Presen t illness Narrative This note was created using NoteWriter. Subjective Willis Gautam is a 31 year old female. 31 year old female with no PMH presents with complaints of sinus infection. Acute onset 2 weeks ago Endorses that she is experiencing bilateral sinus pressure +left ear pain Denies cough or congestion. Denies SOB or dyspnea Denies abdominal pain. Denies N/V/D Denies skin rash or lesions. Has attempted OTC medicines without relief. The history is provided by the patient. No mechanical apprentice was used. Sinus Problem This is a new problem. The current episode started 1 to 4 weeks ago. The problem occurs constantly. The problem has been gradually worsening. Associated symptoms include congestion and headaches. Pertinent negatives include no abdominal pain, anorexia, arthralgias, change in bowel habit, chest pain, chills, coughing, diaphoresis, fatigue, fever, joint swelling, myalgias, nausea, neck pain, numbness, rash, sore throat, swollen glands, urinary symptoms, vertigo, visual change, vomiting or weakness. Nothing aggravates the symptoms. Treatments tried: OTC medicines. The treatment provided no relief. PAST MEDICAL HISTORY Diagnosis Date Benign heart murmur Breast abscess 10/2019 left extremely dense breast tissue Gestational hypertension Small fiber neuropathy PAST SURGICAL HISTORY Procedure Laterality Date EXTRACTION, ERUPTED TOOTH OR EXPOSED ROOT (ELEVATION AND/OR FORCEPS REMOVAL) PAST SURGICAL HISTORY OF removal of bereast abcess ALLERGIES Latex and Penicillins MEDICATIONS doxycycline monohydrate 100 mg tablet^Take 1 tablet by mouth twice daily for 7 days.^Disp: 14 tablet^Rfl: 0 loratadine (CLARITIN) 10 mg tablet^Take 1 tablet by mouth once daily.^Disp: 30 tablet^Rfl: 11 (Patient not taking: Reported on 07/28/2022) escitalopram oxalate (LEXAPRO) 10 mg tablet^Take 0.5 tablets by mouth once daily.^Disp: 30 tablet^Rfl: 1 (Patient not taking: Reported on 09/10/2022) Magnesium 200 mg tab^Take by mouth.^Disp: ^Rfl: (Patient not taking: Reported on 05/10/2022) FAMILY HISTORY Problem Relation Age of Onset Breast Cancer Mother 53 Hypertension Mother other (equivocal ? SLE) Mother Hypertension Father Ulcerative Colitis Father Colon Cancer Maternal Grandmother Ovarian cancer Other maternal great aunt Parkinson s Disease Maternal Grandfather other (Lymphoma) Maternal Grandfather No Known Problems Paternal Grandmother Hypertension Paternal Grandfather No Known Problems Daughter Social History Tobacco Use Smoking status: Never Smokeless tobacco: Never Vaping Use Vaping Use: Never used Substance Use Topics Alcohol use: No Drug use: Never Review of Systems Constitutional: Negative for chills, diaphoresis, fatigue and fever. HENT: Positive for congestion, ear pain and sinus pain. Negative for sore throat. Eyes: Negative for photophobia, pain, discharge, redness and itching. Respiratory: Negative for apnea, cough, choking and chest tightness. Cardiovascular: Negative for chest pain, palpitations and leg swelling. Gastrointestinal: Negative for abdominal pain, anorexia, change in bowel habit, nausea and vomiting. Musculoskeletal: Negative for arthralgias, joint swelling, myalgias and neck pain. Skin: Negative for color change, pallor and rash. Allergic/Immunologic: Negative for environmental allergies, food allergies and immunocompromised state. Neurological: Positive for headaches. Negative for dizziness, vertigo, facial asymmetry, weakness and numbness. Hematological: Negative for adenopathy. Does not bruise/bleed easily. Psychiatric/Behavioral: Negative for agitation and behavioral problems. Objective BP 110/64 Pulse 80 Temp 37.2 C (99 F) Resp 16 Wt 92.1 kg (203 lb) LMP 07/14/2022 SpO2 99% BMI 30.87 kg/m Physical Exam Vitals and nursing note reviewed. Constitutional: General: She is not in acute distress. Appearance: Normal appearance. She is normal weight. She is not ill-appearing, toxic-appearing or diaphoretic. HENT: Head: Normocephalic and atraumatic. Comments: +maxillary sinus pressure +frontal sinus pressure Left TM slightly erythematous, but bony structures intact. Right Ear: Ear canal and external ear normal. Left Ear: Ear canal and external ear normal. Nose: Nose normal. No congestion or rhinorrhea. Mouth/Throat: Mouth: Mucous membranes are moist. Pharynx: No oropharyngeal exudate or posterior oropharyngeal erythema. Eyes: General: Right eye: No discharge. Left eye: No discharge. Extraocular Movements: Extraocular movements intact. Conjunctiva/sclera: Conjunctivae normal. Pupils: Pupils are equal, round, and reactive to light. Cardiovascular: Rate and Rhythm: Normal rate and regular rhythm. Pulses: Normal pulses. Heart sounds: Normal heart sounds. No murmur heard. No friction rub. Pulmonary: Effort: Pulmonary effort is normal. No respiratory distress. Breath sounds: Normal breath sounds. No stridor. No wheezing, rhonchi or rales. Chest: Chest wall: No tenderness. Abdominal: General: Abdomen is flat. There is no distension. Palpations: Abdomen is soft. There is no mass. Tenderness: There is no abdominal tenderness. There is no right CVA tenderness, left CVA tenderness, guarding or rebound. Hernia: No hernia is present. Musculoskeletal: General: No swelling, tenderness, deformity or signs of injury. Normal range of motion. Cervical back: Normal range of motion and neck supple. No rigidity. Right lower leg: No edema. Left lower leg: No edema. Lymphadenopathy: Cervical: No cervical adenopathy. Skin: General: Skin is warm and dry. Capillary Refill: Capillary refill takes less than 2 seconds. Coloration: Skin is not jaundiced or pale. Findings: No bruising, erythema, lesion or rash. Neurological: General: No focal deficit present. Mental Status: She is alert and oriented to person, place, and time. Cranial Nerves: No cranial nerve deficit. Sensory: No sensory deficit. Motor: No weakness. Coordination: Coordination normal. Gait: Gait normal. Psychiatric: Mood and Affect: Mood normal. Behavior: Behavior normal. Thought Content: Thought content normal. Judgment: Judgment normal. Assessment and Plan ASSESSMENT/PLAN: 1. Sinusitis, unspecified chronicity, unspecified location - ICD9: 473.9, ICD10: J32.9 - Will begin treatment with as per antibiotic as written, see orders - The patient should also be given OTC cough and cold meds as needed, warm salt water gargles, throat lozenges and/or OTC throat spray as needed, and nasal saline gtts and suction prn for the first 5-7 days of treatment. - Supportive care with plenty of fluids, rest, and analgesia prn. - Follow up in 3-5 days if symptoms persist or worsen. Mary Herrera APRN.IRAJ documented in this encounter [facility] 09-10-2022 Instructions Mike Mccarthy APRN.CNP - 09/10/2022 11:11 AM EST How to Manage Common Symptoms Associated with COVID for Adults Fever- Fever is a temperature over 100.4 F and can occur when the body is fighting an infection. To help treat a fever: Drink plenty of fluids and stay well hydrated. Eat small amounts of easy to digest food. Rest. Your body needs rest to recover, but getting up and moving around the house frequently is a good idea. You should try to continue doing your normal daily activities (bathing, toileting, grooming, cooking), though you will probably feel tired, and need to rest often. Avoid any heavy activity or exercise, as this will increase your body temperature. Dress in light clothing and stay covered in a light sheet. Keep the room temperature cool. Take a slightly warm (not cold or cool) bath, or apply damp washcloths to the forehead and wrists. Cough- Cough is a common symptom associated with COVID and can be bothersome. To help treat a cough: Stay well hydrated. Try warm water or tea with lemon and/or honey to help soothe the cough. Use a humidifier to add moisture to the air. Try a product with menthol, like a cough drop or a rub for your chest such as Vicks, which can help reduce cough. Try cough drops. Avoid smoking and other strong odors or perfumes. Try breathing exercises to keep your lungs open and clear. Take a big deep breath through your nose and hold for 5 seconds before slowly releasing. Repeat frequently, while you are awake. Congestion- Runny nose or nasal congestion can occur with COVID. Treatment can help relieve symptoms: Try OTC nasal saline spray, or nasal saline rinse to relieve mucus congestion. Nasal strips can help keep nasal passages open, to increase airflow. Elevating your head with an extra pillow in bed can help reduce congestion. Using a humidifier can increase moisture in the air, and make breathing easier. Sore Throat- Another common symptom with COVID, can be managed at home by: Stay well hydrated. Gargle with salt water - mix teaspoon salt with 1 cup of warm water and gargle. This helps to loosen mucus in the back of the throat and may reduce discomfort. Try ice chips, popsicles or lozenges to soothe the throat. Nausea/Vomiting/Diarrhea- These are common symptoms, and staying hydrated is most important. If you are nauseous or vomiting, start with small sips of water every 10-15 minutes and increase as tolerated. You can try sucking an ice cube too. If tolerating, you can try pedialyte or Gatorade, or flat sprite or ish-michelle. Start slowly and increase as you are able to. Instead of meals, try smaller, more frequent snacks. Try eating bland foods like crackers, toast, rice, and applesauce. Avoid spicy, greasy or fried foods and dairy containing foods. Even if you aren't feeling hungry due to lack of smell or taste, it is important to try to take in some food when you are able. After drinking and eating, rest in an upright position for up to two hours as needed to help decrease nauseous feelings. Try closing your eyes, avoid moving and watching TV. Avoid strong odors that can make you feel more nauseated. When to seek emergency medical attention Look for emergency warning signs for COVID-19. If having any of these symptoms, seek emergency medical care immediately: Trouble breathing Persistent pain or pressure in the chest New confusion Inability to wake or stay awake Bluish lips or face *This list is not all possible symptoms. Please call your medical provider for any other symptoms that are severe or concerning to you. EXPRESS CARE PATIENT INFO PHARYNGITIS OVERVIEW A sore throat (pharyngitis) is a common problem, and usually is caused by a viral or bacterial infection. Sore throat usually resolves on its own without complications in adults, although it is important to know when to seek medical attention. Viruses can cause a sore throat and other upper respiratory infections, such as the common cold. Sore throat caused by a virus is not treated with antibiotics, but instead may be treated with rest, pain medication, and other therapies aimed at relieving symptoms. Strep throat is a particular kind of pharyngitis that is caused by a bacterium known as group A streptococcus (GAS). Strep throat is treated with a course of antibiotics. SORE THROAT SYMPTOMS Viral pharyngitis - Most people with a sore throat have a virus. The most common viruses are those that cause upper respiratory infections, such as the common cold. Symptoms of a viral infection can include: A runny or congested nose Irritation or redness of the eyes Cough, hoarseness, or soreness in the roof of the mouth Some viruses cause a fever and can make you feel quite ill. Strep throat - Approximately 10 percent of adults with a sore throat have strep throat. Signs and symptoms of strep throat include the following: Pain in the throat Fever (temperature greater than 100.4 F or 38 C) Enlarged lymph glands in the neck No cough, runny nose, or irritation/redness of the eyes When to seek urgent help - See your doctor or nurse immediately if you have a sore throat along with any of the following: Difficulty breathing Skin rash Drooling because you cannot swallow Swelling of the neck or tongue Stiff neck or difficulty opening the mouth SORE THROAT DIAGNOSIS Most people with a sore throat get better without treatment. There is no specific treatment for a sore throat caused by usual cold viruses. Is it strep or not? - A combination of symptoms (fever, enlarged glands in the neck, white patches on your tonsils, and no cough) can help in determining if you have strep. If you have two or more symptoms, a rapid test or throat culture may be done. People with fewer than two symptoms usually do not need testing or treatment for strep throat. Rapid test - The rapid test determines if there are streptococcus bacteria on a throat swab. The test can be done in a clinician's office and the results are available within a few minutes. The test is accurate in most cases, although a small percentage of tests are falsely negative (the bacteria are present but the test is negative). Strep Confirmatory Test - involves swabbing the throat, sending the swab to a laboratory, and waiting 24 to 48 hours for the results. These Strep PCR tests are slightly more accurate than the rapid test. TREATMENT OF SORE THROAT Sore throat treatment - Antibiotics do not help throat pain caused by a virus and are not recommended. Sore throat caused by viral infections usually lasts four to five days. During this time, treatments to reduce pain may be helpful. Several therapies can help to relieve throat pain. Pain medication - You can treat your throat pain with a mild pain reliever such as acetaminophen (Tylenol ) or a non -steroidal anti-inflammatory agent such as ibuprofen or naproxen (Motrin or Aleve ). Oral rinses - Salt water gargles are an effective treatment for throat pain. It is not clear that salt water works to relieve pain, but it is unlikely to be harmful. Most recipes suggest 1/4 to 1/2 teaspoon of salt per one cup (8 ounces) of warm water. Sprays - Sprays containing topical anesthetics ( benzocaine, phenol) are available to treat sore throat. However, such sprays are no more effective than sucking on hard candy. Lozenges - A variety of lozenges (cough drops) are available to treat throat pain or relieve dryness. However, it is not clear that lozenges work any better than other forms of hard candy, which are generally less expensive. Other treatments - Other treatments that may help with throat pain include increase fluid intake and rest, sipping warm beverages (eg, honey or lemon tea, chicken soup), cold beverages, or eating cold or frozen desserts (eg, ice cream, popsicles).Replace your toothbrush, it may be harboring germs. Until the illness is resolved, do not share anything by mouth. Strep throat - Penicillin, or an antibiotic related to penicillin, is the treatment of choice for strep throat. A one time injection of penicillin is also available. People who are allergic to penicillin are given an alternate antibiotic. It is important to finish the entire course of treatment to completely eliminate the infection. If symptoms do not begin to improve or worsen by three days of antibiotic treatment, you should see your primary care provider. Return to work/school - If you have been diagnosed with strep throat, stay home from work or school until you have completed 24 hours of antibiotics. Within 24 hours of beginning antibiotic treatment, you will feel better and will be less contagious. If you have a sore throat (not diagnosed as strep), you may participate in your usual activities as soon as you feel well. What to do if symptoms don't improve:- If symptoms do not begin to improve within 5 to 7 days you should see your primary care provider. 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 Duration of symptoms 5 days. Associated symptoms listed above. States members in her household have similar signs symptoms. Most prominent symptom today is sore throat. Has been using OTC medications this is helped some. Denies any significant pain currently. Denies any productive cough difficulty handling secretions difficulty swallowing decreased range of motion of neck chest pain shortness of breath pleuritic pain hemoptysis nausea vomiting abdominal pain change in bowel or bladder habits. Past medical history prescription medication use and allergies reviewed. .Patient presents with: Sore Throat: fever and bodyaches x 5 days PAST MEDICAL HISTORY Diagnosis Date Benign heart murmur Breast abscess 10/2019 left extremely dense breast tissue Gestational hypertension Small fiber neuropathy PAST SURGICAL HISTORY Procedure Laterality Date EXTRACTION, ERUPTED TOOTH OR EXPOSED ROOT (ELEVATION AND/OR FORCEPS REMOVAL) PAST SURGICAL HISTORY OF removal of bereast abcess ALLERGIES Latex and Penicillins MEDICATIONS loratadine (CLARITIN) 10 mg tablet^Take 1 tablet by mouth once daily.^Disp: 30 tablet^Rfl: 11 (Patient not taking: Reported on 07/28/2022) escitalopram oxalate (LEXAPRO) 10 mg tablet^Take 0.5 tablets by mouth once daily.^Disp: 30 tablet^Rfl: 1 (Patient not taking: Reported on 09/10/2022) Magnesium 200 mg tab^Take by mouth.^Disp: ^Rfl: (Patient not taking: Reported on 05/10/2022) FAMILY HISTORY Problem Relation Age of Onset Breast Cancer Mother 53 Hypertension Mother other (equivocal ? SLE) Mother Hypertension Father Ulcerative Colitis Father Colon Cancer Maternal Grandmother Ovarian cancer Other maternal great aunt Parkinson s Disease Maternal Grandfather other (Lymphoma) Maternal Grandfather No Known Problems Paternal Grandmother Hypertension Paternal Grandfather No Known Problems Daughter Social History Tobacco Use Smoking status: Never Smokeless tobacco: Never Vaping Use Vaping Use: Never used Substance Use Topics Alcohol use: No Drug use: Never BP 110/62 Pulse 96 Temp 37.5 C (99.5 F) Resp 16 Wt 93 kg (205 lb) LMP 07/14/2022 SpO2 99% BMI 31.17 kg/m Review of Systems Constitutional: Positive for chills, fever and malaise/fatigue. HENT: Positive for congestion and sore throat. Negative for ear discharge, ear pain and sinus pain. Eyes: Negative for blurred vision, pain, discharge and redness. Respiratory: Negative for cough, hemoptysis, sputum production, shortness of breath, wheezing and stridor. Cardiovascular: Negative for chest pain. Gastrointestinal: Negative for abdominal pain, diarrhea, nausea and vomiting. Musculoskeletal: Positive for myalgias. Skin: Negative for itching and rash. Neurological: Negative for dizziness and headaches. Objective Physical Exam Constitutional: General: She is not in acute distress. Appearance: She is not diaphoretic. HENT: Head: Normocephalic. Jaw: No trismus, tenderness, swelling or pain on movement. Right Ear: Tympanic membrane, ear canal and external ear normal. Left Ear: Tympanic membrane, ear canal and external ear normal. Nose: Congestion present. Mouth/Throat: Lips: [place]. Mouth: Mucous membranes are moist. Pharynx: Oropharynx is clear. Uvula midline. Posterior oropharyngeal erythema present. No pharyngeal swelling, oropharyngeal exudate or uvula swelling. Tonsils: No tonsillar exudate or tonsillar abscesses. 1+ on the right. 1+ on the left. Eyes: Conjunctiva/sclera: Conjunctivae normal. Pupils: Pupils are equal, round, and reactive to light. Cardiovascular: Rate and Rhythm: Normal rate and regular rhythm. Heart sounds: Normal heart sounds. Pulmonary: Effort: Pulmonary effort is normal. No tachypnea, accessory muscle usage or respiratory distress. Breath sounds: Normal breath sounds. No stridor. No wheezing, rhonchi or rales. Abdominal: Palpations: Abdomen is soft. Tenderness: There is no abdominal tenderness. Musculoskeletal: Cervical back: Normal range of motion and neck supple. No rigidity or tenderness. No pain with movement. Normal range of motion. Lymphadenopathy: Cervical: No cervical adenopathy. Skin: General: Skin is warm and dry. Neurological: Mental Status: She is alert and oriented to person, place, and time. ASSESSMENT/PLAN: 1. Sore throat - ICD9: 462, ICD10: J02.9 (primary diagnosis) - STREP A MOLECULAR (POC) - COVID WITH FLUA+B, ROUTINE 2. Viral illness - ICD9: 079.99, ICD10: B34.9 - COVID WITH FLUA+B, ROUTINE Strep test was negative. Suspicious of influenza with current environment. We will treat conservatively at this point. Red flags for prompt reevaluation discussed. Patient was educated on supportive therapies. Patient will follow up with primary care provider as needed. Patient was instructed to immediately proceed to emergency room for any new, worsening, or symptoms lasting longer than anticipated. The patient's clinical presentation is otherwise unremarkable at this time. Based on exam and clinical finding, the patient is stable for discharge. Plan of care was discussed with patient. Patient verbalizes understanding and agrees to plan of care. This note was generated using [employer] software. It may contain errors in wording, punctuation, or spelling. Mike Mccarthy APRN.IRAJ documented in this encounter [facility] 08-03-2022 History of Presen t illness Narrative Opened in error Ellen Centeno MD' documented in this encounter [facility] 07-28-2022 History of Presen t illness Narrative Adult Health Clinical Nurse Specialist offered: Patient declines. Willis Gautam is a 31 year old female who presents for problem visit. HPI: Patient reports menses every 28 days. Flow lasts for 2 days and then sometimes has a few days of light spotting. After menses she has painful cramps - this started 5-6 months ago. Denies vaginitis or infection concerns. Also she requests a routine breast exam as she has some cyclic breast tenderness. Denies other breast concerns. 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 History LMP: 07/14/2022, Having periods Age at Menarche: Age at First : Age at Menopause: Gas Dispenser History Comments: Sexual Activity: Yes; Male Contraception: No contraception data on record PAST MEDICAL HISTORY Diagnosis Date Benign heart murmur Breast abscess 10/2019 left extremely dense breast tissue Gestational hypertension Small fiber neuropathy PAST SURGICAL HISTORY Procedure Laterality Date EXTRACTION, ERUPTED TOOTH OR EXPOSED ROOT (ELEVATION AND/OR FORCEPS REMOVAL) PAST SURGICAL HISTORY OF removal of bereast abcess FAMILY HISTORY Problem Relation Age of Onset Breast Cancer Mother 53 Hypertension Mother other (equivocal ? SLE) Mother Hypertension Father Ulcerative Colitis Father Colon Cancer Maternal Grandmother Ovarian cancer Other maternal great aunt Parkinson s Disease Maternal Grandfather other (Lymphoma) Maternal Grandfather No Known Problems Paternal Grandmother Hypertension Paternal Grandfather No Known Problems Daughter Social History Tobacco Use Smoking status: Never Smokeless tobacco: Never Vaping Use Vaping Use: Never used Substance Use Topics Alcohol use: No Drug use: Never Current Outpatient Medications Medication Sig escitalopram oxalate (LEXAPRO) 10 mg tablet Take 0.5 tablets by mouth once daily. loratadine (CLARITIN) 10 mg tablet Take 1 tablet by mouth once daily. (Patient not taking: Reported on 07/28/2022) Magnesium 200 mg tab Take by mouth. (Patient not taking: Reported on 05/10/2022) Current Facility-Administered Medications Medication Dose Route Frequency acetylcholine 10% solution - cchs compounding 20 mL IRRIGATION ONE TIME Allergies As of Date: 07/28/2022 Allergen Noted Reaction LATEX 03/17/2021 Other: See Comments PENICILLINS 07/04/2014 Rash and Hives Fully Assessed 07/28/2022 REVIEW OF SYSTEMS Abdomen: positive nausea at night the past 2 months with occasional emesis. Denies bowel changes. Bladder: No dysuria, gross hematuria, urinary frequency, urinary urgency, or incontinence. Allergies and current medication updated:Yes EXAM: BP 116/70 Wt 207 lb 9.6 oz (94.2kg) LMP 07/14/2022 GENERAL: pleasant, female in no apparent distress BREAST: soft, non-tender, symmetric, no dominant mass, normal nipple-areolar complex, no lymphadenopathy, and no nipple discharge CHEST: Normal inspiratory effort ABDOMEN: soft, non-tender, and no masses PELVIC: external genitalia normal, normal Bartholin's glands, urethra, [place]'s glands, no vulvar lesions, no cervical lesions, good vaginal support, physiologic discharge present, normal appearing perineal body and perianal region BIMANUAL: uterus normal size, shape and consistency, no adnexal masses, and non-tender NEURO: alert and oriented x3,exam grossly non-focal EXTREMITIES: normal ASSESSMENT AND PLAN: 31yo female with concerns Pelvic pain - check pelvic US Pap with hpv Reassured that cyclic breast tenderness is normal Medical Decision Making: Problems: Low: Acute, uncomplicated illness or injury Data: Unique test(s) ordered: 2 Risk: Low: Low risk from testing/treatment Medical Decision Making Level: 3 - Low Ellen Centeno MD documented in this encounter [facility] 05-10-2022 History of Presen t illness Narrative Radiology Service Progress Note PATIENT NAME: Willis Gautam DATE OF SERVICE: May 10, 2022 TIME: 8:05 AM PATIENT IDENTITY VERIFICATION COMPLETED USING TWO (2) IDENTIFIERS: Name and Date of confirmed by patient verbally. FALL SCREENING: Has the patient had 2 falls in the last year or 1 fall with injury or currently using an Ambulatory Assistive Device (Walker, Cane, Wheelchair, Crutches, etc.)? No PATIENT GENDER DATA: Female. status: : No status: NO. PATIENT RELEVANT IMPLANT DATA REVIEWED: Yes RADIOLOGY DEPARTMENT: General X-ray: Exam(s) Completed: Chest X-Ray PERIPHERAL IV DATA: Not applicable SIGNED BY: RT Chava(R) May 10, 2022 8:05 AM documented in this encounter [facility] 05-10-2022 History of Presen t illness Narrative CC: Patient presents with: Sore Throat: Cough, bilateral ear pain x 5 days HPI: Willis Gautam is a 31 year old female who presents to the office with complaint of head congestion, cough, productive, and sore throat for a few days. Symptoms are worsening Associated symptoms includes sore throat. Denies headache, body aches, fever, nausea, vomiting , and diarrhea. Treatments tried include nothing so far. with no relief of symptoms. Sick contacts: unknown. History of asthma, frequent episodes of bronchitis, chronic bronchitis, bronchiectasis or COPD: No Smoker: No Seasonal/environmental allergies: No The ROS is otherwise negative. The patient's pmh, medications, allergies, and past visits are reviewed. PHYSICAL EXAM: BP 120/82 Pulse 79 Temp 36.8 C (98.2 F) Resp 21 Wt 93.4 kg (205 lb 12.8 oz) LMP 09/26/2021 SpO2 98% BMI 31.29 kg/m General appearance: alert, cooperative, pleasant, in no acute distress Head: Normocephalic Eyes: EOM's intact, conjunctiva pink and moist, no icterus, sclera white, non-injected Ears: Right ear: External ear/canal- Normal, TM - clear with good landmarks. Left ear: External ear/canal- Normal, TM - clear with good landmarks Oropharynx:moderate erythema, without exudates present Heart: Negative. RRR without obvious murmur, gallop, or rubs. No ectopy. Lungs: clear to auscultation, without rales or wheeze, good air exchange PAST MEDICAL HISTORY Diagnosis Date Benign heart murmur Breast abscess 10/2019 left extremely dense breast tissue Gestational hypertension Small fiber neuropathy PAST SURGICAL HISTORY Procedure Laterality Date EXTRACTION, ERUPTED TOOTH OR EXPOSED ROOT (ELEVATION AND/OR FORCEPS REMOVAL) PAST SURGICAL HISTORY OF removal of bereast abcess ALLERGIES Latex and Penicillins MEDICATIONS escitalopram oxalate (LEXAPRO) 10 mg tablet^Take 0.5 tablets by mouth once daily.^Disp: 30 tablet^Rfl: 1 Magnesium 200 mg tab^Take by mouth.^Disp: ^Rfl: (Patient not taking: Reported on 05/10/2022) FAMILY HISTORY Problem Relation Age of Onset Breast Cancer Mother 53 Hypertension Mother other (equivocal ? SLE) Mother Hypertension Father Ulcerative Colitis Father Colon Cancer Maternal Grandmother Ovarian cancer Other maternal great aunt Parkinson s Disease Maternal Grandfather other (Lymphoma) Maternal Grandfather No Known Problems Paternal Grandmother Hypertension Paternal Grandfather No Known Problems Daughter Social History Tobacco Use Smoking status: Never Smokeless tobacco: Never Vaping Use Vaping Use: Never used Substance Use Topics Alcohol use: No Drug use: Never ASSESSMENT/PLAN: 1. Acute cough - ICD9: 786.2, ICD10: R05.1 (primary diagnosis) - XR CHEST 2V FRONTAL/LAT RESULT: Lines, tubes, and devices: None. Lungs and pleura: No consolidation. No lung mass. No pleural effusion. No pneumothorax. Cardiomediastinal silhouette: Normal cardiomediastinal silhouette. Bones and soft tissues: Unremarkable. IMPRESSION IMPRESSION: No acute radiographic abnormality. Museum Archivist: JUAN CARLOS Transcribe Date/Time: May 10 2022 8:16A Dictated by : ROME DARBY MD 2. Sore throat - ICD9: 462, ICD10: J02.9 - STREP A MOLECULAR (POC) - negative Prednisone 5 days and Claritin daily Prescription instructions reviewed with patient as applicable. Potential red flag symptoms discussed with the patient. Reviewed appropriate action plan to take if red flag symptoms occur. Patient agreeable to treatment plan. Humera Centeno APRN.IRAJ documented in this encounter [facility] 03-16-2022 Instructions Oswaldo Bernal MD - 03/16/2022 4:53 PM EDT Can try magnesium oxide 400mg daily documented in this encounter [facility] 03-16-2022 History of Presen t illness Narrative Images from the original note were not included. [facility] New Patient Evaluation Consulting Provider: SELF Consultation requested by Mei Hernandez PA-C to reestablish care for diffuse sensory abnormality, myalgias, fatigue (last seen 3+ years ago). My final recommendations will be communicated back to the requesting physician by way of shared Medical record or letter to requesting physician via US mail. History of Present Illness: Ms. Gautam is a pleasant 31 year old right handed caucasion female who presents to reestablish care for diffuse sensory abnormality, myalgias, fatigue. Previously seen here, please see information from last clinic note below for more information. She reports that in the past 3 years, has had some progression of symptoms. Reports a continued burning/tingling discomfort from the wrists proximally to the shoulders and from the ankle proximally to the knee. Reports that this is bothersome and her main concern currently. States that she feels this is more intense than at last clinic visit, and also involves the arms which is new from last visit. Reports feelings of diffuse muscle aches, described as feeling as if she had worked out (but had not been doing anything rigorous recently). Describes a diffuse feeling of weakness and fatigue, but no faustino weakness in any limbs and no proximal gradient to the weakness. Does report some continued somnelence, and states that she feels as if she could fall asleep anywhere. States it does not matter how much she sleeps, still feels tired. For these symptoms, has been intermittently taking OTC NSAIDs, has been seeing a chiropracter for some muscle discomfort. Does report some right lateral foot numbness, which started suddenly 6 months ago and reports it has stayed relatively stable. No significant pain or discomfort in that area. Does have 2 kids at home, 2 years and 10 months of age. History from last clinic note 01/30/2019 (Dr. Sanchez) The patient describes persistence of the target bilateral LE paresthetic pain, rated at about 4/10 in intensity, on average. She describes constant burning sensation in both legs, knees down, with some tingling sensations in the arms, and face bilaterally (not significantly affecting truncal areas). Based on the deficiency we identified on her lab work, she started vitamin E supplementation 100 units/d since 11/2018, stopped when he switched to a vitamin containing 30 units daily (currently at 7 weeks gestation). Since her , she describes some generalized fatigue, with intermittent muscle cramping in the gluteal thigh and calf muscles bilaterally, but without any significant LBP. Pertinent symptoms of bowel and/or bladder sphincteric or voiding dysfunction are denied. She also mentions developing intermittent anterior goldebrg tender bumps , especially over the past 1-2 years. Other areas generally less affected may include bilateral thighs, as well as UEs, especially over the past couple months. She also notices that her skin in the affected areas may become red and splotchy especially when she comes out of a warm bath/shower. When asked about other potential constitutional symptoms, she endorses an intermittent low-grade fever (~99.6-99.7 recently daily), as well as some intermittent chills. She also mentions having a long-standing/known (apparently congenital) cardiac murmur, with chronic intermittent palpitations she describes as fluttering . Last PCP appointment (Dr. Hernandez) about 4 months ago, with follow-up currently outstanding. PAST MEDICAL HISTORY Diagnosis Date Benign heart murmur Breast abscess 10/2019 left extremely dense breast tissue Gestational hypertension Small fiber neuropathy PAST SURGICAL HISTORY Procedure Laterality Date EXTRACTION, ERUPTED TOOTH OR EXPOSED ROOT (ELEVATION AND/OR FORCEPS REMOVAL) PAST SURGICAL HISTORY OF removal of bereast abcess Medications: Current Outpatient Medications Medication Sig escitalopram oxalate (LEXAPRO) 10 mg tablet Take 0.5 tablets by mouth once daily. Magnesium 200 mg tab Take by mouth. Current Facility-Administered Medications Medication Dose Route Frequency acetylcholine 10% solution - cchs compounding 20 mL IRRIGATION ONE TIME Allergies: See updated allergies documented below. ALLERGIES Allergen Reactions Latex Other: See Comments Penicillins Rash, Hives Social History Tobacco Use Smoking status: Never Smoker Smokeless tobacco: Never Used Vaping Use Vaping Use: Never used Substance Use Topics Alcohol use: No Drug use: Never Employer And Job Title: [employer] Years Of Education Completed: 16 years Marital Status: to Andrew with 1 child FAMILY HISTORY Problem Relation Age of Onset Breast Cancer Mother 53 Hypertension Mother other (equivocal ? SLE) Mother Hypertension Father Ulcerative Colitis Father Colon Cancer Maternal Grandmother Ovarian cancer Other maternal great aunt Parkinson s Disease Maternal Grandfather other (Lymphoma) Maternal Grandfather No Known Problems Paternal Grandmother Hypertension Paternal Grandfather No Known Problems Daughter The patient is of caucasion ancestry. No known history of neuromuscular disease otherwise. ROS: CONSTITUTIONAL: No reported fevers, chills, night sweats, or significant unintentional weight loss. EYES: No visual changes indicated. No eye pain or orbital swelling reported. HEENT: No hearing changes or vertiginous symptoms indicated. No history of nose bleeds reported. RESPIRATORY: No reported cough, sputum, wheezing and dyspnea. CARDIOVASCULAR: Negative for significant chest pain, and palpitations per report. GI: Negative for significant abdominal discomfort, blood in stools or black stools reported. No recent reported change in bowel habits. : No reported history of incontinence. No dark/cola colored urine reported. MUSCLOSKELETAL: No history of significant joint pain or swelling, or myalgias reported. SKIN: Negative for pertinent lesions, rash, and itching per report. HEMATOLOGY/ONCOLOGY: Negative for reported prolonged bleeding, bruising easily, and swollen nodes. ENDOCRINE: Negative for reported significant cold or heat intolerance, no reported goitrous neck swelling or polydipsia PSYCH: No reported depression or anxiety symptoms. No reported SI or HI. NEURO: Per HPI above. Vital Signs: BP 119/73 Pulse 66 Ht 172.7 cm (5' 8 ) Wt 88.5 kg (195 lb) LMP 09/26/2021 BMI 29.65 kg/m General Medical Exam: General: Awake, alert, interactive, no acute distress, good nutritional status, normal development, well-kept Skin: no obvious skin breakdown, rashes, discoloration or cyanosis HEENT: No abnormality of observable eyes, EOM intact, no obvious trauma of head. Cardiac: Good peripheral perfusion of all limbs without cyanosis or edema Pulm: even chest rise and fall, nonlabored respirations. Neurologic Exam: Mental status including: orientation to time, place, person, recent and remote memory, attention span and concentration, language, and fund of knowledge is essentially normal. CRANIAL NERVES: II: No visual field defects. Funduscopic examination without appreciable abnormalities. III-IV-: Pupils equal round and reactive to light. Normal conjugate, extra-ocular eye movements in all directions of gaze. No nystagmus. No ptosis prior to or post sustained upgaze. V: Normal facial sensation. VII: Normal facial symmetry and movements. No pathologic facial reflexes. VIII: Normal hearing and vestibular function. IX-X: Normal palatal movement. XI: Normal shoulder shrug and head rotation. XII: Normal tongue strength and range of motion, no deviation or fasciculation. Speech is not dysarthric. MOTOR: No appreciable atrophy, fasciculations or abnormal movements. No pronator drift. No scapular winging. Tone is within normal limits, including absence of myotonia. Strength/Power (MRC grade- out of 5): Neck Flexion 5 Neck Extension 5 Upper extremity power, when graded out of 5, revealed: Right Left shoulder abduction 5 5 shoulder adduction 5 5 shoulder internal rotation 5 5 shoulder external rotation 5 5 elbow extension 5 5 elbow flexion 5 5 forearm supination 5 5 forearm pronation 5 5 wrist extension 5 5 wrist flexion 5 5 finger extension 5 5 deep finger flexion (D2-3) 5 5 deep finger flexion (D4-5) 5 5 thumb flexion with FPL 5 5 thumb abduction with APB 5 5 finger abduction 5 5 Lower extremity strength, when reported the same way, showed: Right Left hip flexion 5 5 hip extension 5 5 hip adduction 5 5 hip abduction 5 5 knee flexion 5 5 knee extension 5 5 ankle dorsiflexion 5 5 ankle plantar flexion 5 5 foot inversion 5 5 foot eversion 5 5 toe extension 5 5 toe flexion 5 5 No difficulty squatting and getting up from squatting- Does not use arms Able to rise from a chair without using arms. Deep Tendon Reflexes (DTRs): Right Left Biceps 2+ 2+ Triceps 2+ 2+ Brachioradialis 2+ 2+ Patellar 2+ 2+ Achilles 2+ 2+ Vertical spread: No Crossed adductors: No Kennedy's sign: No Tromner's sign: No Plantar responses: flexor Clonus: No SENSORY: Normal and symmetrical perception of light touch, pinprick, temperature, vibration, and proprioception intact with exception of some decreased pinprick to the right lateral leg and some patchy decreased light touch over the medial and lateral lower left leg.. Romberg's sign absent. No extinction on double simultaneous stimulation. Straight leg raising-bilaterally negative COORDINATION/GAIT: Normal finger-to- nose-finger and [id number] bilaterally. Intact rapid alternating movements bilaterally. Gait narrow-based and stable. Tandem and stressed gait intact. PRIOR STUDIES: PERTINENT PREVIOUS OSH STUDIES [facility] ([place], [place]) 07/29/2018 Vit B12 356 CCP Neg Thyroglobulin Ab <1 (neg) TSH 0.6 Uric Acid 3.8 (normal) CRP 0 ESR 7 C3 103.8 (within normal) SPEP: polyclonal elevation gamma globulin A (normal pattern) Anti-ZEE Neg Pathology Report ([facility] [place], [place]) Epidermal nerve fiber density Samples: L thigh and L calf skin with normal epidermal nerve fiber density Sweat gland nerve fiber density Samples: L thigh and L calf L thigh: skin with significantly reduced sweat gland nerve fiber density, consistent with small fiber neuropathy L calf: Skin with normal sweat gland nerve fiber density EMG/NCS report EMG: EMG Of selected bilateral lower extremity muscles was performed and was normal NCS: NCS of BLE were performed and were normal INTERVAL PERTINENT STUDIES Component Latest Ref Rng & Units 11/06/2018 Hep B Core Ab, Total Negative Negative Hep C Antibody IA Negative Negative Hep B Surface Ag Negative Negative Hep B Surface Ab, Qual Negative Negative IgA 78 - 391 mg/dL 159 Transglutaminase Ab, IgA <20 Units 8 Interpretation (Celiac Screen) No serologic evidence of celiac disease. No serologic evidence of celiac disease. HIV 12 Combo (Ag/Ab) Non Reactive Non Reactive HIV-1/2 AB Test Not Indicated HIV Interpretation Negative [place] Free, Serum 3.30 - 19.40 mg/L 15.8 Lambda Free, Serum 5.7 - 26.3 mg/L 12.6 K/L Ratio, Serum 0.26 - 1.65 1.25 MPA Result No M protein is identified. No M protein is identified. Staff Review (MPA) Reviewed by Torin Villegas M.D. ([id number]) Vitamin E-alpha 6.0 - 23.0 mg/L 5.6 (L) Vitamin E-gamma 0.3 - 3.2 mg/L 1.0 Cryoglobulin Quant, Blood 0 - 50 ug/mL 63 (H) Rheumatoid Factor <16 IU/mL <10 MMA 79 - 376 nmol/L 166 TSH 0.400 - 5.500 uU/mL 1.790 Vitamin B1, WB 70 - 180 nmol/L 114 Vitamin B12 232 - 1,245 pg/mL 432 Vitamin B6, Plasma 20.0 - 125.0 nmol/L 104.8 11/06/2018-QSART: QSART responses at the left forearm, proximal leg, distal leg, and foot are normal. There is no evidence of a significant postganglionic sympathetic sudomotor abnormality like that seen in autonomic or small fiber neuropathy. IMPRESSION: Ms. Gautam is a pleasant 31 year old right handed caucasion female who [facility] for diffuse sensory abnormality, myalgias, fatigue. Suspect that many of patient's symptoms are secondary to a disorder of central sensitization or myofascial pain dysfunction syndrome which can be exacerbated by non-restorative sleep, but could have an element of a small fiber neuropathy contributing to her current symptoms. Has had a low vitamin E level in the past, plan to try and rule out another intervally-evolved small fiber neuropathy contributor with the following labs: Vitamin E, B12, B6, B1, D and Hgb A1c, serum immunofixation, kappa:lambda ratio. Discussed possible management strategies for symptoms. Discussed trying gabapentin 300HS, which may help with sleep and her sensory symptoms, but she wishes to defer pharmacologic therapy at this time. Is interested in trying magnesium oxide 400 daily to help with cramping (which may also help positive sensory/paresthetic symptoms). Additionally, wants to try an anti-inflammatory diet before trying gabapentin and see if that helps symptoms. PLAN/RECOMMENDATIONS: -Labs: Vitamins E, B12, B6, B1, D; Hgb A1c, serum immunofixation, kappa:lambda ratio. - Wishes to try an antinflammatory diet and see if this helps improve symptoms -Deferring gabapentin 300HS for now -Can try magnesium oxide 400mg p.o. daily - The impression above as well as the plan as outlined below were extensively discussed with the patient who voiced understanding. All questions were answered to her stated satisfaction. - When available, results of the above investigations and possible further recommendations will be communicated to the patient via telephone/CadenceMDhart. Patient to call office if not contacted after expected testing turnaround time. To aid with communication, patients (and primary care physicians) can sign up for Sitem[employer]her (or Ti Knight), which allows online appointment scheduling, transmission of labs results and chart notes, and secure email communication. To establish either account, visit [email or web address]. Oswaldo Bernal MD Neuromuscular Medicine (NM) Fellow In the service of Dr.John Sanchez (NM Staff) [facility] STAFF: TEACHING PHYSICIAN NOTE OF PERSONAL INVOLVEMENT IN CARE INCLUDING MEDICAL DECISION MAKING I have reviewed the clinical details obtained and documented by Dr. Bernal and I have participated in the bach components, including pertinent aspects of the history and physical examination. I have discussed the case and management of the patient's care with Dr. eBrnal. I essentially agree with the assessment and plan as documented above. Edits to the note are indicated by italics. The duration of this appointment visit was 45 minutes of collective [id number] time with the patient. At least 50% of this time was spent in counseling, explanation of diagnosis, planning of further management, and coordination of care. This note was partially created using voice recognition software and is inherently subject to errors including those of syntax and sound-alike substitutions which may escape proofreading. In such instances, original meaning may be extrapolated by contextual derivation. Bobby Sanchez MD Staff, [facility] Electronically signed March 17, 2022 6:04 PM Referring provider/ Primary care provider: Mei Hernandez ([facility]) [address] [place], [place] [id number] documented in this encounter [facility] 10-04-2021 Note HNO ID: [id number] Author: Anastasiya Rouse MD Service: ? Author Type: Physician Type: Progress Notes Filed: 10/04/2021 10:17 AM Note Text: Anastasiya Rouse MD [facility] [address] [place], [place] [id number] SUBJECTIVE Chief Complaint: Patient presents with: Breast Problem: left breast pain . ARVIN Gautam is a 30 year old female here today for evaluation of left breast pain. History of left breast abscess while . Patient noted sharp twinges a few times a week. No specific exacerbating factors and they resolve spontaneously after a few minutes. She denies palpating any breast masses or axillary adenopathy. No skin or nipple changes. No nipple discharge. No recent imaging. Nursing Notes: Ebonie Lord MA 10/04/2021 9:57 AM Signed Patient is here today due to left breast pain. Patient is at high risk of developing breast cancer. Last visit was 03-19-20. Patient stated she was supposed to have a follow ultrasound and never had that performed. Patient stated she noticed some twinges after her second child. The twinges come and go. Patient denies any lumps in her breasts. Ebonie Lord MA AGE AT [facility] 14 AGE AT FIRST 28 FAMILY HISTORY OF BREAST CANCER Yes (IF YES) NUMBER OF FIRST DEGREE RELATIVES WITH BREAST CANCER 1 PREVIOUS BREAST BIOPSIES No (IF YES) PREVIOUS BREAST BIOPSY WITH ATYPICAL HYPERPLASIA No RACE JULITA MODEL RISK 5 YEAR age is <35 TYRER CUZICK SCORE 27.0 Review of Systems Constitutional: Negative for fever, malaise/fatigue and weight loss. Breast: See HPI PAST MEDICAL HISTORY Diagnosis Date - Benign heart murmur - Breast abscess 10/2019 left - extremely dense breast tissue - Gestational hypertension - Small fiber neuropathy PAST SURGICAL HISTORY Procedure Laterality Date - EXTRACTION, ERUPTED TOOTH OR EXPOSED ROOT (ELEVATION AND/OR FORCEPS REMOVAL) - PAST SURGICAL HISTORY OF removal of bereast abcess Social History Tobacco Use - Smoking status: Never Smoker - Smokeless tobacco: Never Used Vaping Use - Vaping Use: Never used Substance Use Topics - Alcohol use: No - Drug use: Never FAMILY HISTORY Problem Relation Age of Onset - Breast Cancer Mother 53 - Hypertension Mother - other (equivocal ? SLE) Mother - Hypertension Father - Ulcerative Colitis Father - Colon Cancer Maternal Grandmother - Ovarian cancer Other maternal great aunt - Parkinson?s Disease Maternal Grandfather - other (Lymphoma) Maternal Grandfather - No Known Problems Paternal Grandmother - Hypertension Paternal Grandfather - No Known Problems Daughter The ROS, medical, surgical, family, and social history were reviewed by Anastasiya Rouse MD ALLERGIES Allergen Reactions - Latex Other: See Comments - Penicillins Rash, Hives Current Outpatient Medications Medication Sig - Magnesium 200 mg tab Take by mouth. - escitalopram oxalate (LEXAPRO) 10 mg tablet Take 0.5 tablets by mouth once daily. Current Facility-Administered Medications Medication Dose Route Frequency - acetylcholine 10% solution - cchs compounding 20 mL IRRIGATION ONE TIME OBJECTIVE BP 126/62 Pulse 76 Ht 172.7 cm (5' 8 ) Wt 93 kg (205 lb) LMP 09/26/2021 BMI 31.17 kg/m? BMI 31.17 kg/(m2) Physical Exam Neck: Thyroid: No thyromegaly. Chest: Breasts: Breasts are symmetrical. Right: No inverted nipple, mass, nipple discharge, skin change, tenderness or supraclavicular adenopathy. Left: No inverted nipple, mass, nipple discharge, skin change, tenderness or supraclavicular adenopathy. Lymphadenopathy: Head: Right side of head: No submental, submandibular or tonsillar adenopathy. Left side of head: No submental, submandibular or tonsillar adenopathy. Cervical: No cervical adenopathy. Upper Body: Right upper body: No supraclavicular adenopathy. Left upper body: No supraclavicular adenopathy. Neurological: Mental Status: She is alert and oriented to person, place, and time. Cranial Nerves: Cranial nerves are intact. Plan ASSESSMENT/PLAN Breast pain Ms. Gautam is a 30 year old female with history of left breast abscess due to here for evaluation of left breast pain. No suspicious findings on clinical exam. Recommend bilateral mammograms and left US. As long as imaging is negative, patient was offered reassurance and can see me as needed. Will need high risk screening closer to 40. Follow up: Return if symptoms worsen or fail to improve, for high risk in 5 years. Anastasiya Rouse MD 10/04/2021 10:03 AM [facility] 02-09-2019 History of Past i llness Narrative Problem Noted Date Resolved Date First trimester 02/09/20192019 Other skin changes 02/09/2019 09/06/2020 Pain in both lower extremities 11/04/2018 1 11/07/2019 Concern about neurological disease without diagn osis 11/04/2018 09/06/2020 Palpitations 08/10/2015 09/06/2020 documented as of this encounter (statuses as of 03/17/2022) [facility] History of Past illness Narrative* Problem Noted Date Resolved Date First trimester 02/09/20192019 Other skin changes 02/09/2019 09/06/2020 Pain in both lower extremities 11/04/2018 1 11/07/2019 Concern about neurological disease without diagn osis 11/04/2018 09/06/2020 Palpitations 08/10/2015 09/06/2020 documented as of this encounter (statuses as of 05/10/2022) [facility] History of Past illness Narrative* Problem Noted Date Resolved Date First trimester 02/09/20192019 Other skin changes 02/09/2019 09/06/2020 Pain in both lower extremities 11/04/2018 1 11/07/2019 Concern about neurological disease without diagn osis 11/04/2018 09/06/2020 Palpitations 08/10/2015 09/06/2020 documented as of this encounter (statuses as of 07/28/2022) [facility] History of Past illness Narrative* Problem Noted Date Resolved Date First trimester 02/09/20192019 Other skin changes 02/09/2019 09/06/2020 Pain in both lower extremities 11/04/2018 1 11/07/2019 Concern about neurological disease without diagn osis 11/04/2018 09/06/2020 Palpitations 08/10/2015 09/06/2020 documented as of this encounter (statuses as of 08/01/2022) [facility] History of Past illness Narrative* Problem Noted Date Resolved Date First trimester 02/09/20192019 Other skin changes 02/09/2019 09/06/2020 Pain in both lower extremities 11/04/2018 1 11/07/2019 Concern about neurological disease without diagn osis 11/04/2018 09/06/2020 Palpitations 08/10/2015 09/06/2020 documented as of this encounter (statuses as of 08/03/2022) [facility] History of Past illness Narrative* Problem Noted Date Resolved Date First trimester 02/09/20192019 Other skin changes 02/09/2019 09/06/2020 Pain in both lower extremities 11/04/2018 1 11/07/2019 Concern about neurological disease without diagn osis 11/04/2018 09/06/2020 Palpitations 08/10/2015 09/06/2020 documented as of this encounter (statuses as of 08/04/2022) [facility]05-[facility]2019 History of Past illness Narrative* Problem Noted Date Resolved Date First trimester 02/09/20192019 Other skin changes 02/09/2019 09/06/2020 Pain in both lower extremities 11/04/2018 1 11/07/2019 Concern about neurological disease without diagn osis 11/04/2018 09/06/2020 Palpitations 08/10/2015 09/06/2020 documented as of this encounter (statuses as of 09/10/2022) [facility] History of Past illness Narrative* Problem Noted Date Resolved Date First trimester 02/09/20192019 Other skin changes 02/09/2019 09/06/2020 Pain in both lower extremities 11/04/2018 1 11/07/2019 Concern about neurological disease without diagn osis 11/04/2018 09/06/2020 Palpitations 08/10/2015 09/06/2020 documented as of this encounter (statuses as of 10/04/2022) [facility] History of Past illness Narrative* Problem Noted Date Diagnosed Date Resolved Date First trimester 02/09/2019 Other skin changes 02/09/2019 0 Pain in both lower extremities 11/04/2018 09/06/2020 Concern about neurological d isease without diagnosis 11/04/2018 09/06/2020 Palpitations 08/10/2015 09/06/2020 documented as of this encounter (statuses as of 06/10/2023) [facility] History of Past illness Narrative* Problem Noted Date Diagnosed Date Resolved Date First trimester 02/09/2019 Other skin changes 02/09/2019 0 Pain in both lower extremities 11/04/2018 09/06/2020 Concern about neurological d isease without diagnosis 11/04/2018 09/06/2020 Palpitations 08/10/2015 09/06/2020 documented as of this encounter (statuses as of 07/03/2023) [facility] History of Past illness Narrative* Problem Noted Date Diagnosed Date Resolved Date First trimester 02/09/2019 Other skin changes 02/09/2019 0 Pain in both lower extremities 11/04/2018 09/06/2020 Concern about neurological d isease without diagnosis 11/04/2018 09/06/2020 Palpitations 08/10/2015 09/06/2020 documented as of this encounter (statuses as of 07/20/2023) [facility] History of Past illness Narrative* Problem Noted Date Diagnosed Date Resolved Date First trimester 02/09/2019 Other skin changes 02/09/2019 0 Pain in both lower extremities 11/04/2018 09/06/2020 Concern about neurological d isease without diagnosis 11/04/2018 09/06/2020 Palpitations 08/10/2015 09/06/2020 documented as of this encounter (statuses as of 08/06/2023) [facility] History of Past illness Narrative* Problem Noted Date Diagnosed Date Resolved Date First trimester 02/09/2019 Other skin changes 02/09/2019 0 Pain in both lower extremities 11/04/2018 09/06/2020 Concern about neurological d isease without diagnosis 11/04/2018 09/06/2020 Palpitations 08/10/2015 09/06/2020 documented as of this encounter (statuses as of 08/07/2023) [facility] History of Past illness Narrative* Problem Noted Date Diagnosed Date Resolved Date First trimester 02/09/2019 Other skin changes 02/09/2019 0 Pain in both lower extremities 11/04/2018 09/06/2020 Concern about neurological d isease without diagnosis 11/04/2018 09/06/2020 Palpitations 08/10/2015 09/06/2020 documented as of this encounter (statuses as of 01/15/2024) [facility] Diagnosis Myofascial pain dysfunction syndrome- Primary Mylagia and myositis, unspecified Disturbance of skin sensation Small fiber neuropathy Unspecified hereditary and idiopathic peripheral neuropathy Muscle ache Mylagia and myositis, unspecified Malaise and fatigue Other malaise and fatigue Central sensitization to pain Vitamin E deficiency Deficiency of other vitamins [facility] Diagnosis Acute cough- Primary Sore throat Acute pharyngitis [facility] Diagnosis Pelvic pain in female- Primary Unspecified symptom associated with female genital organs Screening for cervical cancer Screening for malignant neoplasm of the cervix Special screening examination for human papillomavirus (HPV) documented in this encounter [facility] note* Diagnosis Pelvic pain in female- Primary Unspecified symptom associated with female genital organs documented in this encounter [facility] note* Diagnosis Pelvic pain in female Unspecified symptom associated with female genital organs documented in this encounter [facility] note* Diagnosis OPENED IN ERROR- Primary To allow closing an encounter opened in error (used in SmartSet) documented in this encounter [facility] note* Diagnosis Sore throat- Primary Acute pharyngitis Viral illness Unspecified viral infection, in conditions classified elsewhere and of unspecified site documented in this encounter [facility] note* Diagnosis Sinusitis, unspecified chronicity, unspecified location- Primary documented in this encounter [facility] note* Diagnosis Chronic neck and back pain- Primary documented in this encounter [facility] note* Diagnosis Female infertility- Primary Female infertility of unspecified origin Irregular periods/menstrual cycles Irregular menstrual cycle documented in this encounter [facility] note* Diagnosis Cyst of ovary, unspecified laterality documented in this encounter [facility] note* Diagnosis Bacterial sinusitis- Primary Unspecified sinusitis (chronic) documented in this encounter [facility] note* Diagnosis Breast pain- Primary Mastodynia Left breast abscess- Primary Inflammatory disease of breast Breast pain Mastodynia extremely dense breast tissue- Primary Breast pain Mastodynia Foot pain, right- Primary Pain in limb Foot pain, right Pain in limb documented in this encounter [facility] note* Diagnosis Breast pain- Primary Mastodynia Left breast abscess- Primary Inflammatory disease of breast Breast pain Mastodynia extremely dense breast tissue- Primary Breast pain Mastodynia Foot pain, right Pain in limb documented in this encounter [facility] note* Diagnosis contractions- Primary Monochorionic diamniotic twin gestation in third trimester contractions documented in this encounter [facility] note* Diagnosis Breast pain- Primary Mastodynia Left breast abscess- Primary Inflammatory disease of breast Breast pain Mastodynia extremely dense breast tissue- Primary Breast pain Mastodynia Acute cough documented in this encounter [facility] note* Diagnosis Breast pain- Primary Mastodynia Left breast abscess- Primary Inflammatory disease of breast Breast pain Mastodynia extremely dense breast tissue- Primary Breast pain Mastodynia Viral illness- Primary Unspecified viral infection, in conditions classified elsewhere and of unspecified site documented in this encounter [facility] for referral (narrative)* Diagnostic Procedure Only (Routine) - Authorized Specialty Diagnoses / Procedures Referred By Clayton burns Referred To Contact [facility] Diagnoses Pelvic pain in female Procedures PELVIC US WHI US PELVIC NONOBSTETRIC REAL-TIME IMAGE COMPLETE Ellen Centeno MD [address] [place] [address] [facility] [address] [place] [address] Referral ID Status Reason Start Date Expiration Date Visits Requested Visits Authorized [id number] Authorized Auto-Generat ed Referral 2 07/28/2023 1 1 * Diagnostic Procedure Only (Routine) - Pending Review Specialty Diagnoses / Procedures Referred By Clayton burns Referred To Contact US IMAGING Diagnoses Pelvic pain in female Procedures US FEMALE PELVIS TRANSVAG US TRANSVAGINAL Ellen Centeno MD [address] [place] [place] [address] [facility] Referral ID Status Reason Start Date Expiration Date Visits Requested Visits Authorized [id number] Pending Review Auto-Generat ed Referral 2 08/27/2023 1 1 [facility] for referral (narrative)* Diagnostic Procedure Only (Routine) - Closed Specialty Diagnoses / Procedures Referred By Clayton burns Referred To Contact US IMAGING Diagnoses Cyst of ovary, unspecified laterality Procedures US FEMALE PELVIS TRANSVAG US TRANSVAGINAL Ellen Centeno MD [address] [place] [place] [address] [place] [address] Referral ID Status Reason Start Date Expiration Date V isits Requested Visits Authorized [id number] Closed Auto-Generate d Referral 02/16/2023 03/17/2024 1 1 [facility] for referral (narrative)* Diagnostic Procedure Only (Urgent) - Closed Specialty Diagnoses / Procedures Referred By Contac t Referred To Contact XR IMAGING Diagnoses Foot pain, right Procedures XR FOOT GENERAL 3V AP/LAT/OBL RIGHT RADEX FOOT COMPLETE MINIMUM 3 VIEWS Mary Herrera APRN.[employer] [address] [place] [address] [place] [address] Referral ID Status Reason Start Date Expiration Date V isits Requested Visits Authorized [id number] Closed Auto-Generate d Referral 06/03/2024 07/03/2025 1 1 [facility] for referral (narrative)* Diagnostic Procedure Only (Urgent) - Closed Specialty Diagnoses / Procedures Referred By Contac t Referred To Contact XR IMAGING Diagnoses Foot pain, right Procedures XR FOOT GENERAL 3V AP/LAT/OBL RIGHT RADEX FOOT COMPLETE MINIMUM 3 VIEWS Mary Herrera APRN.[employer] [address] [place] [address] [place] [address] Referral ID Status Reason Start Date Expiration Date V isits Requested Visits Authorized [id number] Closed Auto-Generate d Referral 06/03/2024 07/03/2025 1 1 [facility] for visit Narrative* Diagnostic Procedure Only (Routine) - Closed Specialty Diagnoses / Procedures Referred By Contac t Referred To Contact [facility] Diagnoses Pelvic pain in female Procedures PELVIC US I US PELVIC NONOBSTETRIC REAL-TIME IMAGE COMPLETE Ellen Centeno MD [address] [place] [address] [facility] [address] [place] [address] Referral ID Status Reason Start Date Expiration Date V isits Requested Visits Authorized [id number] Closed Auto-Generate d Referral 07/28/2022 07/28/2023 1 1 [facility] for visit Narrative* Diagnostic Procedure Only (Urgent) - Closed Specialty Diagnoses / Procedures Referred By Contac t Referred To Contact XR IMAGING Diagnoses Foot pain, right Procedures XR FOOT GENERAL 3V AP/LAT/OBL RIGHT RADEX FOOT COMPLETE MINIMUM 3 VIEWS Mary Herrera APRN.[employer] [address] [place] [address] [place] [address] Referral ID Status Reason Start Date Expiration Date V isits Requested Visits Authorized [id number] Closed Auto-Generate d Referral 06/03/2024 07/03/2025 1 1 [facility] Summary Purpose Family History Breast Cancer Status:Active Comments:Mother. Cerebrovascular Accident Status:Active Comment s:Paternal Grandfather. Mother. Colon Cancer Status:Active Comments:Materna l Grandmother. Diabetes Mellitus Type II Status:Active Commen ts:Paternal Grandfather. Mother. Hypertension Status:Active Comments:Mother. Maternal Grandfather. Maternal Grandmother. Paternal Grandmother. Paternal Grandfather. Hypertension Status:Active Comments:Mother. Maternal Grandmother. Osteoarthritis Status:Active Comments:Materna l Grandmother. Advance Directives Date Activated Date Inactivated Comments 06/06/2024 4:34 AM 06/07/2024 9:22 PM Health Concerns Infection Onset Date Last Indicated Resolved Time COVID-19 Rule-Out 09/10/2022 09/10/2022 Additional Source Comments INFORMATION SOURCE (unrecogn ized section and content) DATE CREATED AUTHOR 03/25/2020 [facility] DATE CREATED AUTHOR AUTHOR'S ORGANIZ ATION 10/05/2021 [facility] DATE CREATED AUTHOR AUTHOR'S ORGANIZ ATION 08/05/2023 [facility] DATE CREATED AUTHOR AUTHOR'S ORGANIZ ATION 02/27/2024 [facility] DATE CREATED AUTHOR AUTHOR'S ORGANIZ ATION 06/04/2024 [facility] DATE CREATED AUTHOR AUTHOR'S ORGANIZ ATION 06/11/2024 [facility] DATE CREATED AUTHOR AUTHOR'S ORGANIZ ATION 06/24/2024 [facility] DATE CREATED AUTHOR AUTHOR'S ORGANIZ ATION 06/27/2024 [facility] Source Comments (unrecognize d section and content) In the event this informatio n is protected by the Federal Confidentiality of Alcohol and Drug Abuse Patient Records regulations: The Federal rules restrict any use of the information to criminally investigate or prosecute any alcohol or drug abuse patient.[facility] the event this information is protected by the Federal Confidentiality of Alcohol and Drug Abuse Patient Records regulations: The Federal rules restrict any use of the information to criminally investigate or prosecute any alcohol or drug abuse patient.[facility] the event this information is protected by the Federal Confidentiality of Alcohol and Drug Abuse Patient Records regulations: The Federal rules restrict any use of the information to criminally investigate or prosecute any alcohol or drug abuse patient.[facility] the event this information is protected by the Federal Confidentiality of Alcohol and Drug Abuse Patient Records regulations: The Federal rules restrict any use of the information to criminally investigate or prosecute any alcohol or drug abuse patient.[facility] the event this information is protected by the Federal Confidentiality of Alcohol and Drug Abuse Patient Records regulations: The Federal rules restrict any use of the information to criminally investigate or prosecute any alcohol or drug abuse patient.[facility] the event this information is protected by the Federal Confidentiality of Alcohol and Drug Abuse Patient Records regulations: The Federal rules restrict any use of the information to criminally investigate or prosecute any alcohol or drug abuse patient.[facility] the event this information is protected by the Federal Confidentiality of Alcohol and Drug Abuse Patient Records regulations: The Federal rules restrict any use of the information to criminally investigate or prosecute any alcohol or drug abuse patient.[facility] the event this information is protected by the Federal Confidentiality of Alcohol and Drug Abuse Patient Records regulations: The Federal rules restrict any use of the information to criminally investigate or prosecute any alcohol or drug abuse patient.[facility] the event this information is protected by the Federal Confidentiality of Alcohol and Drug Abuse Patient Records regulations: The Federal rules restrict any use of the information to criminally investigate or prosecute any alcohol or drug abuse patient.[facility] the event this information is protected by the Federal Confidentiality of Alcohol and Drug Abuse Patient Records regulations: The Federal rules restrict any use of the information to criminally investigate or prosecute any alcohol or drug abuse patient.[facility] the event this information is protected by the Federal Confidentiality of Alcohol and Drug Abuse Patient Records regulations: The Federal rules restrict any use of the information to criminally investigate or prosecute any alcohol or drug abuse patient.[facility] the event this information is protected by the Federal Confidentiality of Alcohol and Drug Abuse Patient Records regulations: The Federal rules restrict any use of the information to criminally investigate or prosecute any alcohol or drug abuse patient.[facility] the event this information is protected by the Federal Confidentiality of Alcohol and Drug Abuse Patient Records regulations: The Federal rules restrict any use of the information to criminally investigate or prosecute any alcohol or drug abuse patient.[facility] the event this information is protected by the Federal Confidentiality of Alcohol and Drug Abuse Patient Records regulations: The Federal rules restrict any use of the information to criminally investigate or prosecute any alcohol or drug abuse patient.[facility] the event this information is protected by the Federal Confidentiality of Alcohol and Drug Abuse Patient Records regulations: The Federal rules restrict any use of the information to criminally investigate or prosecute any alcohol or drug abuse patient.[facility] the event this information is protected by the Federal Confidentiality of Alcohol and Drug Abuse Patient Records regulations: The Federal rules restrict any use of the information to criminally investigate or prosecute any alcohol or drug abuse patient.[facility] the event this information is protected by the Federal Confidentiality of Alcohol and Drug Abuse Patient Records regulations: The Federal rules restrict any use of the information to criminally investigate or prosecute any alcohol or drug abuse patient.[facility] the event this information is protected by the Federal Confidentiality of Alcohol and Drug Abuse Patient Records regulations: The Federal rules restrict any use of the information to criminally investigate or prosecute any alcohol or drug abuse patient.[facility] Reason for Visit (unrecogniz ed section and content) Reason Comments New Patient Reason Comments Sore Throat Cough, bilateral ear pain x 5 days Reason Comments Menstrual Problem 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 Reason Comments Opened In Error Reason Comments Sore Throat fever and bodyaches x 5 days Reason Comments Sinus Problem sinus pressure, left ear pain x 2 weeks Reason Comments Neck Pain back of neck x 1 day , chronic, burning sensation neck, back, chest and arms Reason Comments Discussion Reason Comments Radiology US Specialty Diagnoses / Procedures Referred By Contac t Referred To Contact US IMAGING Diagnoses Cyst of ovary, unspecified laterality Procedures US FEMALE PELVIS TRANSVAG US TRANSVAGINAL Ellen Centeno MD [address] [place] [address] [place] [address] Referral ID Status Reason Start Date Expiration Date V isits Requested Visits Authorized [id number] Closed Auto-Generate d Referral 02/16/2023 03/17/2024 1 1 Specialty Diagnoses / Procedures Referred By Contac t Referred To Contact Radiology / RADIO MRI Diagnoses Other cervical disc displacement, unspecified cervical region MRI CERVICAL SPINE WO CONTRAST [M50.20] PT ORDER IS IN SCANNED DOCUMENTS 07/10/23 Procedures MRI SPINAL CANAL CERVICAL W/O CONTRAST MATRL MRI WO [address] Srini Abdon, DO [address] [facility] [address] [place] [address] Radio Mri [facility] [address] [place] [address] Referral ID Status Reason Start Date Expiration Date Visits Re quested Visits Authorized [id number] Closed 07/18/2023 09/30/2023 1 1 Reason Comments Sinus Problem Congestion, FIGUEROA, left ear pain x 2 weeks Reason Comments right foot pain X 2 weeks-cannot rec all an injury Reason Comments Contractions Specialty Diagnoses / Procedures Referred By Contac t Referred To Contact Diagnoses contractions Procedures , [address], [place] [address] [facility] H2 Ob Triage [address] [facility] [place] [address] Referral ID Status Reason Start Date Expiration Date Visits Re quested Visits Authorized [id number] 1 1 Reason Comments Fever bodyaches, chills x 8 days, requesting covid and flu test to rule out Care Teams (unrecognized sec tion and content) [employer] Relationship Specialty Start Date End Date Mei Hernandez PA-C PCP - General Family Practice 07/04/14 Kristian Parikh DO Referring Neurology 10/28/18 Josefa Noel PA-C Referring Family Practice 11/04/18 Inspector [employer] Relationship Specialty Start Date End Date Mei Hernandez PA-C PCP - General Family Practice 07/04/14 Kristian Parikh DO Referring Neurology 10/28/18 Josefa Noel PA-C Referring Family Practice 11/04/18 Inspector [employer] Relationship Specialty Start Date End Date Mei Hernandez PA-C PCP - General Family Medicine 07/04/14 Kristian Parikh DO Referring Neurology 10/28/18 Josefa Noel PA-C Referring Family Medicine 11/04/18 Inspector [employer] Relationship Specialty Start Date End Date Mei Hernandez PA-C PCP - General Family Medicine 07/04/14 Kristian Parikh DO Referring Neurology 10/28/18 Josefa Noel PA-C Referring Family Medicine 11/04/18 Inspector [employer] Relationship Specialty Start Date End Date Mei Hernandez PA-C PCP - General Family Medicine 07/04/14 Kristian Parikh DO Referring Neurology 10/28/18 Josefa Noel PA-C Referring Family Medicine 11/04/18 Inspector [employer] Relationship Specialty Start Date End Date Mei Hernandez PA-C PCP - General Family Medicine 07/04/14 Kristian Parikh DO Referring Neurology 10/28/18 Josefa Noel PA-C Referring Family Medicine 11/04/18 Inspector [employer] Relationship Specialty Start Date End Date Mei Hernandez PA-C PCP - General Family Medicine 07/04/14 Kristian Parikh DO Referring Neurology 10/28/18 Josefa Noel PA-C Referring Family Medicine 11/04/18 Inspector [employer] Relationship Specialty Start Date End Date Mei Hernandez PA-C PCP - General Family Medicine 07/04/14 Kristian Parikh DO Referring Neurology 10/28/18 Josefa Noel PA-C Referring Family Medicine 11/04/18 Inspector [employer] Relationship Specialty Start Date End Date Mei Hernandez PA-C PCP - General Family Medicine 07/04/14 Kristian Parikh DO Referring Neurology 10/28/18 Josefa Noel PA-C Referring Family Medicine 11/04/18 Inspector [employer] Relationship Specialty Start Date End Date Mei Hernandez PA-C PCP - General Family Medicine 07/04/14 Kristian Parikh DO Referring Neurology 10/28/18 Josefa Noel PA-C Referring Family Medicine 11/04/18 Inspector [employer] Relationship Specialty Start Date End Date Mei Hernandez PA-C PCP - General Family Medicine 07/04/14 Kristian Parikh DO Referring Neurology 10/28/18 Josefa Noel PA-C Referring Family Medicine 11/04/18 Inspector [employer] Relationship Specialty Start Date End Date Mei Hernandez PA-C PCP - General Family Medicine 07/04/14 Kristian Parikh DO Referring Neurology 10/28/18 Josefa Noel PA-C Referring Family Medicine 11/04/18 Inspector [employer] Relationship Specialty Start Date End Date Mei Hernandez PA-C PCP - General Family Medicine 07/04/14 Kristian Parikh DO Referring Neurology 10/28/18 Josefa Noel PA-C Referring Family Medicine 11/04/18 Inspector [employer] Relationship Specialty Start Date End Date Mei Hernandez PA-C PCP - General Family Medicine 07/04/14 Kristian Parikh DO Referring Neurology 10/28/18 Josefa Noel PA-C Referring Family Medicine 11/04/18 Inspector [employer] Relationship Specialty Start Date End Date Mei Hernandez PA-C PCP - General Family Medicine 07/04/14 Kristian Parikh DO Referring Neurology 10/28/18 Josefa Noel PA-C Referring Family Medicine 11/04/18 Inspector [employer] Relationship Specialty Start Date End Date Mei Hernandez PA-C PCP - General Family Medicine 07/04/14 Kristian Parikh DO Referring Neurology 10/28/18 Josefa Noel PA-C Referring Family Medicine 11/04/18 Inspector [employer] Relationship Specialty Start Date End Date Mei Hernandez PA-C PCP - General Family Medicine 07/04/14 Kristian Parikh DO Referring Neurology 10/28/18 Josefa Noel PA-C Referring Family Medicine 11/04/18 Scheduled Active and Recently Administ ered Medications (unrecognized section and content) Medication Order 06/05/2024 06/06/2024 06/07/2024 betamethasone acetate-betamethasone sodium phosphate ([place]) injection 6 mg (COMPLETED) 6 mg, IntraMUSCular, Once, On Sun06/06/24 at 2300, For 1 dose 2200 (Given - Provider: Erin Corrales, RN) chlorhexidine (Hibiclens) 4 % solution 1 Application 1 Application, Topical, Daily, First dose on Sun06/06/24 at 0445, Use solution to clean abdomen upon admission then once daily until delivered 0445 (Canceled Entry - Provider: Automatic Discharge Provider - Comment: Automatically canceled at discontinue of medication order) 0900 (Canceled Entry - Provider: Automatic Discharge Provider - Comment: Automatically canceled at discontinue of medication order) docusate sodium (Colace) capsule 100 mg 100 mg, Oral, 2 times daily, First dose on Sun06/06/24 at 0900, Do not crush or break. 0900 (Not Given - Provider: Micaela Peoples RN - Reason: Patient/family refused)2041 (Not Given - Provider: Erin Corrales RN - Reason: Patient/family refused) 0900 (Not Given - Provider: Yakov Garcia RN - Reason: Patient/family refused)2100 (Canceled Entry - Provider: Automatic Discharge Provider - Comment: Automatically canceled at discontinue of medication order) famotidine (Pepcid) 20 mg in sodium chloride (PF) 0.9 % 10 mL injection (CANCELED) 20 mg, IntraVENous, Administer over 2 Minutes, Every 12 hours scheduled (2 times per day), First dose on Sun06/06/24 at 0900, IV Push over minimum of 2 minutes - Dilute with 10 mL NS 0809 (Given - Provider: Micaela Peoples, ARTIE) famotidine (Pepcid) 20 mg in sodium chloride (PF) 0.9 % 10 mL injection(Linked Group 1) 20 mg, IntraVENous, Administer over 2 Minutes, 2 times daily, First dose (after last modification) on Sun06/06/24 at 2100, IV Push over minimum of 2 minutes - Dilute with 10 mL NS 204 (Given - Provider: Erin Corrales RN) 0914 (See Alternative - Provider: Yakov Garcia RN)2100 (Canceled Entry - Provider: Automatic Discharge Provider - Comment: Automatically canceled at discontinue of medication order) famotidine (Pepcid) tablet 20 mg(Linked Group 1) 20 mg, Oral, 2 times daily, First dose on Sun06/06/24 at 2100 204 (See Alternative - Provider: Erin Corrales RN) 0914 (Given - Provider: Yakov Garcia RN)2100 (Canceled Entry - Provider: Automatic Discharge Provider - Comment: Automatically canceled at discontinue of medication order) NIFEdipine (Procardia) capsule 10 mg (CANCELED) 10 mg, Oral, Every 6 hours scheduled (4 times per day), First dose on Sun06/06/24 at 0600, For 9 doses, Begin with Procardia 20 mg po once as a Loading Dose then 10 mg po every 6 hours. Hold for SBP <90 or DBP <60 0603 (Given - Provider: Constance Lamb RN)1242 (Given - Provider: Miguelina Vargas, ARTIE) NIFEdipine (Procardia) capsule 20 mg (COMPLETED) 20 mg, Oral, Every 6 hours scheduled (4 times per day), First dose (after last modification) on Sun06/06/24 at 1800, For 5 doses, Begin with Procardia 20 mg po once as a Loading Dose then 10 mg po every 6 hours. Hold for SBP <90 or DBP <60 1821 (Given - Provider: Anyi Franklin RN) 0005 (Given - Provider: Erin Corrales RN)0607 (Given - Provider: Erin Corrales RN)1213 (Given - Provider: Yakov Garcia, RN)1819 (Given - Provider: Yakov Garcia, RN) vitamin tablet 1 tablet, Oral, Daily, First dose on Sun06/06/24 at 0900, With First Dose As Scheduled. 1200 (Not Given - Provider: Miguelina Vargas RN - Reason: Patient/family refused) 0914 (Given - Provider: Yakov Garcia, RN) Continuous Medication Order 06/05/2024 06/06/2024 06/07/2024 lactated ringers infusion 125 mL/hr, IntraVENous, Continuous, Starting on Sun06/06/24 at 0445 0621 (New Bag - Provider: Constance Lamb RN)1429 (New Bag - Provider: Miguelina Vargas RN)1639 (Stopped - Provider: Anyi Franklin RN) PRN Medication Order 06/05/2024 06/06/2024 06/07/2024 acetaminophen (Tylenol) suppository 650 mg(Linked Group 2) 650 mg, Rectal, Every 6 hours PRN, mild pain (1-3), fever, For temp greater than 100.4 F (38 C), Starting on Sun06/06/24 at 0418, Administer if oral route cannot be used. Maximum dose of acetaminophen is 4000 mg from all sources in 24 hours. 1241 (See Alternative - Provider: Miguelina Vargas RN)1821 (See Alternative - Provider: Anyi Franklin RN) 0009 (See Alternative - Provider: Erin Corrales RN)1013 (See Alternative - Provider: Yakov Garcia RN) acetaminophen (Tylenol) tablet 650 mg(Linked Group 2) 650 mg, Oral, Every 6 hours PRN, mild pain (1-3), fever, For temp greater than 100.4 F (38 C), Starting on Sun06/06/24 at 0418, Maximum dose of acetaminophen is 4000 mg from all sources in 24 hours. 1241 (Given - Provider: Miguelina Vargas RN)1821 (Given - Provider: Anyi Franklin RN) 0009 (Given - Provider: Erin Corrales RN)1013 (Given - Provider: Yakov Garcia RN) ondansetron (Zofran) injection 4 mg(Linked Group 3) 4 mg, IntraVENous, Every 6 hours PRN, nausea, vomiting, Starting on Sun06/06/24 at 0418, 1st Line. Give IV if patient is unable to take orally. If inadequate response within 60 minutes, proceed to next-line agent or contact provider if no further options ordered. ondansetron ODT (Zofran-ODT) disintegrating tablet 4 mg(Linked Group 3) 4 mg, Oral, Every 8 hours PRN, nausea, vomiting, Starting on Sun06/06/24 at 0418, 1st Line. If inadequate response within 60 minutes, proceed to next-line agent or contact provider if no further options ordered. Patient should allow tablet to dissolve on tongue. Do not remove from blister pack until just before administering. Linked Groups Order Group 1: famotidine (Pepcid) 20 mg in sodium chloride (PF) 0.9 % 10 mL injectionJump to med 20 mg, IntraVENous, Administer over 2 Minutes, 2 times daily, First dose (after last modification) on Sun06/06/24 at 2100, IV Push over minimum of 2 minutes - Dilute with 10 mL NS Or famotidine (Pepcid) tablet 20 mgJump to med 20 mg, Oral, 2 times daily, First dose on Sun06/06/24 at 2100 Group 2: acetaminophen (Tylenol) tablet 650 mgJump to med 650 mg, Oral, Every 6 hours PRN, mild pain (1-3), fever, For temp greater than 100.4 F (38 C), Starting on Sun06/06/24 at 0418, Maximum dose of acetaminophen is 4000 mg from all sources in 24 hours. Or acetaminophen (Tylenol) suppository 650 mgJump to med 650 mg, Rectal, Every 6 hours PRN, mild pain (1-3), fever, For temp greater than 100.4 F (38 C), Starting on Sun06/06/24 at 0418, Administer if oral route cannot be used. Maximum dose of acetaminophen is 4000 mg from all sources in 24 hours. Group 3: ondansetron ODT (Zofran-ODT) disintegrating tablet 4 mgJump to med 4 mg, Oral, Every 8 hours PRN, nausea, vomiting, Starting on Sun06/06/24 at 0418, 1st Line. If inadequate response within 60 minutes, proceed to next-line agent or contact provider if no further options ordered. Patient should allow tablet to dissolve on tongue. Do not remove from blister pack until just before administering. Or ondansetron (Zofran) injection 4 mgJump to med 4 mg, IntraVENous, Every 6 hours PRN, nausea, vomiting, Starting on Sun06/06/24 at 0418, 1st Line. Give IV if patient is unable to take orally. If inadequate response within 60 minutes, proceed to next-line agent or contact provider if no further options ordered. FOR RECORDS PERTAINING TO PATIENTS WHO ARE OR HAVE BEEN ENROLLED IN A CHEMICAL DEPENDENCY/SUBSTANCEABUSE PROGRAM, SOME INFORMATION MAY BE OMITTED. This clinical summary was aggregated from multiple sources. Caution should be exercised in using it in the provision of clinical care. This summary normalizes information from multiple sources, and as a consequence, information in this document may materially change the coding, format and clinical context of patient data. In addition, data may be omitted in some cases. CLINICAL DECISIONS SHOULD BE BASED ON THE PRIMARY CLINICAL RECORDS. [employer] provides no warranty or guarantee of the accuracy or completeness of information in this document.
--- NOTE | 2024-07-24 19:02 | EX.ED.DYSGE1 ---
HPI History of Present Illness Chief Complaint: Abd Pain Informant: patient Narrative Narrative: Patient is a 33 year old female presenting with fever and abdominal pain. Patient is currently on daily infusion of meropenem for endometriosis. She delivered twins vaginally on 07/01. At her 2-week checkup she was noted to have malodorous vaginal discharge and her culture was positive for Morganella morganii species with multiple antibiotic resistance therefore she was started on the meropenem. She states that the odor has improved however over the past 2 days she has developed fever as high as 101.2 was had bodyaches and is continued with some mild abdominal discomfort. She states this discomfort is been present since her delivery. In addition she has had a mild sore throat and mild ear pain. She notes her daughter recently had a viral syndrome but recovered quickly. She had a negative COVID and flu swab. She reports diarrhea that started last night and she has had 4-5 episodes. Denies any blood in her stool. Denies any history of C. difficile. Denies associate cough, chest pain, rash or difficulty breathing. Does feel that she might have a yeast infection as she has had vaginal pain and irritation as well as itching as well as some mild pain in her rectum. She is due to have her last dose of meropenem tomorrow. Was sent in by her asbestos shingle roofer for further evaluation to make sure she does not have any further intra-abdominal infectious process given her fevers. Finally patient notes that she has continued to have some intermittent vaginal bleeding . [facility] Medical History depression Wears contact lenses Easy bruising Migraine headache Heartburn Non-smoker History of echocardiogram History of irregular heartbeat Nausea Fatigue LLQ abdominal pain Gestational HTN Abnormal ultrasound of breast Left breast abscess Heart murmur Urinary tract infection Mastitis Home Medications ?Medication ?Instructions ?Recorded ?Last Taken ?Type magnesium 200 mg tablet 200 mg PO DAILY headaches 03/16/21 06/30/24 21:00 History vit no.95-ferrous 1 tab PO DAILY 11/30/23 06/30/24 21:00 History fumarate 28 mg-folic acid 800 mcg tablet escitalopram oxalate 5 mg tablet 5 mg PO QDAY 07/14/24 Unknown History (Lexapro) fluconazole 150 mg tablet 150 mg PO Q3D 2 doses #2 tabs 07/24/24 Unknown Rx Allergy/AdvReac Type Severity Reaction Status Date / Time Latex, Natural Rubber Allergy Other Verified 07/24/24 15:23 Penicillins Allergy Hives Verified 07/24/24 15:23 Family History Mother Breast cancer Diabetes Father Ulcerative colitis Grandmother Colon cancer Maternal Grandfather Cancer Lymphoma- Maternal Aunt Cancer Great Aunt- Ovarian- Maternal Surgical History History of surgery Hx of wisdom tooth extraction Social History adopted: No household members: spouse number of children: 4 current occupational status: employed current occupation: [employer] current occupational exposures/hazards: No pets and animals: Yes (Morgan doing litterbox) pets and animals: cat(s) history of recent travel: No sexually active: Yes Smoking Status: Never smoker alcohol intake: never substance use type: does not use caffeine: Yes Type: tea Number of servings: 1 what type of physical activity do you participate in: none seatbelt use: always do you feel safe at home: Yes additional social history: - Jad- [employer] ROS ROS ED Constitutional Constitutional ED: Reports chills and fever(s) ENT ENT ED: Reports ear pain and sore throat Cardiovascular Cardiovascular: Denies chest pain or palpitations Respiratory/Chest Respiratory/Chest: Denies cough or dyspnea Gastrointestinal Gastrointestinal: Reports abdominal pain and diarrhea; Denies vomiting Genitourinary Genitourinary ED: Reports other Details: vaginal irritation, intermittent light vaginal bleeding ; Denies dysuria or hematuria Musculoskeletal Musculoskeletal: Reports myalgias; Denies arthralgias Integumentary Denies rash Neurologic Neurologic: Denies headache(s) or weakness EXAM Physical Exam Const Vital Signs: 07/24/24 15:22 07/24/24 15:25 07/24/24 16:25 Temperature 98.6 F 98.6 F 98.3 F Temperature Source Oral Oral Oral Pulse Rate 89 88 69 Respiratory Rate 16 16 16 Blood Pressure 138/101 H 138/101 H 120/65 Blood Pressure Mean 113 113 83 Pulse Ox 98 98 98 Oxygen Delivery Method Room Air Room Air Room Air 07/24/24 17:00 07/24/24 18:00 07/24/24 19:00 Temperature 98.5 F 98.6 F 98.4 F Temperature Source Oral Oral Oral Pulse Rate 72 72 68 Respiratory Rate 16 18 15 Blood Pressure 118/72 120/76 115/64 Blood Pressure Mean 87 90 81 Pulse Ox 98 98 98 Oxygen Delivery Method Room Air Room Air Room Air 07/24/24 21:00 07/24/24 21:06 Temperature 97.8 F Temperature Source Pulse Rate 68 68 Respiratory Rate 16 Blood Pressure 114/69 114/69 Blood Pressure Mean 84 84 Pulse Ox 98 98 Oxygen Delivery Method Positive well nourished and well developed General Appearance ED: well developed and NAD HEENT Reports TM's clear and moist mucous membranes HEENT Narrative: Normal oropharynx. Normal nares Tympanic Membrane ED: Yes TM's clear Eyes PERRL and EOMs intact bilaterally Neck no lymphadenopathy and supple Neck Narrative: No meningeal signs Chest Wall inspection of chest normal and palpation of chest normal Resp normal respiratory effort and clear to auscultation bilaterally Cardio regular rate and regular rhythm GI non-distended GI Narrative: Very mild diffuse lower abdominal tenderness, no peritoneal signs Auscultation: normoactive bowel sounds Palpation: soft; Negative for guarding Back/Spine no CVA tenderness Extremity normal to inspection Neuro oriented x3 Sensorium / Orientation: alert Motor Exam: Negative for general weakness Psych mental status grossly normal Skin no rashes or lesions noted and no wounds MDM MDM MDM Narrative Medical decision making narrative: Patient is evaluated for fever. Patient is 23 days from vaginal delivery of twins. She was diagnosed with endometritis and is currently on meropenem daily IV through the infusion center. She developed a fever 2 days ago. She is well-appearing on my exam. She has some mild abdominal tenderness that she has had since her diagnosis of endometritis. She denies any new vaginal discharge. She is also developed some diarrhea. She has been around her daughter had a viral illness but recovered from that. I spoke with the patient's ROAD DRIVER has been treating her endometritis. She went to make sure there is no further pelvic abscess, intra-abdominal pathology or possible C. difficile given that she is having diarrhea. Blood cultures are obtained given she is having fevers despite being on IV antibiotics. Stool cultures also obtained she is having diarrhea. She is a mild leukopenia but her lab works otherwise normal. Urinalysis is not consistent with infection. On pelvic exam she does not have any significant tenderness or abnormal discharge. She does have some mild lochia present. There is no odor to it. Patient be discharged home to follow-up outpatient with her ROAD DRIVER. Continue to alternate ibuprofen and Tylenol as needed for fever. Patient is currently not breast-feeding. Will contact her with results of stool cultures are positive as well as blood cultures. Lab Data Attestation: I reviewed the patient's lab results. Labs: Laboratory Results - last 24 hr 07/24/24 07/24/24 15:31 15:35 WBC 3.2 L RBC 4.12 L Hgb 12.0 Hct 37.3 MCV 90.5 MCH 29.1 MCHC 32.2 RDW Std Deviation 44.5 H RDW Coeff of Celena 13.4 Plt Count 158 MPV 10.0 Immature Gran % (Auto) 0.000 Neut % (Auto) 76.2 H Lymph % (Auto) 11.9 L Petroleum % (Auto) 9.4 Eos % (Auto) 2.5 Baso % (Auto) 0.0 Absolute Neuts (auto) 2.4 Absolute Lymphs (auto) 0.38 L Nucleated RBC % 0 Sodium 139 Potassium 4.0 Chloride 111 H Carbon Dioxide 22.0 Anion Gap 6 BUN 12 Creatinine 0.55 Estim Creat Clear Calc 175.48 Est GFR (MDRD) Af Amer 165 Est GFR (MDRD) Non-Af 137 BUN/Creatinine Ratio 22.0 H Glucose 95 Calcium 8.8 Total Bilirubin 0.40 AST 33 ALT 45 Alkaline Phosphatase 75 Total Protein 6.9 Albumin 3.2 Globulin 3.7 Albumin/Globulin Ratio 0.9 Serum , Qual NEGATIVE Urine Color Yellow Urine Clarity Clear Urine pH 6.5 Ur Specific [place] 1.010 Urine Protein 15 H Urine Glucose (UA) Normal Urine Ketones Negative Urine Occult Blood 25 H Urine Nitrite Negative Urine Bilirubin Negative Urine Urobilinogen Normal Ur Leukocyte Esterase 100 H Urine RBC 0-5 SEEN Urine WBC 5-10 SEEN Ur Squamous Epith Cells 5-10 SEEN Urine Bacteria RARE Urine Mucus 0 SEEN Radiography Diagnostic Testing: Clinical Impression(s) from Imaging Studies Abdomen/Pelvis CT 07/24/24 19:10 IMPRESSION: 1. No masses or bowel obstruction however diffuse fluid and nonformed stool within the colon, sequelae of colitis is a consideration. 2. No evidence diverticulitis masses or bowel obstruction. Normal appendix noted. 3. No evidence of renal calcification or obstructive uropathy. 4. No evidence of cholelithiasis or ductal dilatation. 5. Prominence the uterus, endometrium is estimated at approximately 8 to 9 mm. No pelvic masses or abnormal fluid collections. Electronically Signed: Eladio Sheridan MD at 20:16 EDT , Discharge Plan Triage Chief Complaint: Abd Pain ED Provider: Farrah Disla Dx/Rx/DC Orders Clinical Impression: Fever of unknown origin, Leukopenia, Vaginal irritation Instructions: ED FUO Adult, ED JIM VAGINITIS Prescriptions: New fluconazole 150 mg tablet 150 mg PO Q3D Qty: 2 0RF No Action PNV cmb#95-ferrous fumarate-FA 28 mg iron- 800 mcg tablet 1 tab PO DAILY escitalopram oxalate [Lexapro] 5 mg tablet 5 mg PO QDAY magnesium 200 mg Tablet 200 mg PO DAILY Primary Care Provider: Mei Hernandez Referrals: Julianne Antony DO [Med Staff - Active Staff] - 1-2 Days if not improving Mei Hernandez PA-C [Primary Care Provider] - Activity Restrictions/Additional Instructions: Please continue with your antibiotics to the infusion center. You been prescribed 2 doses of fluconazole to take 3 days apart to help with your vaginal irritation. I suspect you have a virus that is causing your symptoms. I we will contact you if your stool studies or blood cultures are positive. There is some mild enlargement of your uterus consistent with just having given but otherwise your CT was largely normal. Print Language: Romansh Disposition Disposition: Home, Self Care Discharge Date/Time: 07/24/24 21:17
--- NOTE | 2024-07-24 19:10 | CT_ITS ---
INDICATION: fever, lower abd pain, recent endometritis EXAMINATION: CT ABDOMEN AND PELVIS with CONTRAST - CT Abdomen And Pelvis W/ Contrast Injection TECHNIQUE: Multiple axial images were obtained of the abdomen and pelvis following administration of IV contrast. Planar reconstructions obtained. A radiation dose optimization technique was used for this scan. RADIATION DOSAGE (If Supplied By Facility): CTDIvol = ( 16.02 ) mGy, DLP = ( 1036.82 ) mGycm IV Contrast dosage and agent: 100 mL Isovue-370 Oral contrast: None. COMPARISON: No pertinent previous studies for comparison.. FINDINGS: LOWER CHEST: 1. Lung bases are clear. 2. No cardiomegaly or pericardial effusion. 3. No significant coronary vascular calcifications. HEPATOBILIARY: Liver: The liver is homogeneous and shows no evidence of focal lesion. There is incidental note of a small subcapsular cyst along the inferior anterior aspect of the RIGHT hepatic lobe measuring approximately 4 mm. Gallbladder: The gallbladder is unremarkable. Pancreas: Pancreas is normal size configuration and density. No mass is noted. Spleen: The spleen is homogeneous and normal in size. . BOWEL: Stomach: The stomach is normal in size configuration, no evidence of focal masses, abnormal calcifications. No hiatal hernia noted. Bowel: Large and small bowel loops have normal configuration, moderate amount of fluid contents throughout the colon, mild colitis is a consideration with minimal formed stool. No evidence of masses or bowel obstruction. No evidence of diverticulitis. No small bowel obstruction. Appendix: The visualized appendix has normal appearance.: GENITOURINARY: Adrenals: Both adrenal glands are normal in size. Kidneys: Kidneys appear symmetric in size. No calcifications are seen in the collecting system. There is no hydronephrosis or surrounding fluid. Bladder: Normal Pelvic organs: Uterus is prominent at, no evidence of pelvic masses adenopathy or abnormal fluid collections. The endometrium is estimated at approximately 8.6 mm. RETROPERITONEUM: There is normal appearance of the abdominal aorta and inferior vena cava. LYMPH NODES: Multiple lymph nodes are present within the mesentery however none reach size criteria of adenopathy. PERITONEAL CAVITY: No ascites noted ANTERIOR ABDOMINAL WALL: There is a small periumbilical fat-containing hernia without bowel involvement. BONES AND SOFT TISSUES: The skeleton shows no evidence for fractures or destructive lesions. OTHER: None CT/Abdomen/Pelvis W IV Cont ONLY IMPRESSION: 1. No masses or bowel obstruction however diffuse fluid and nonformed stool within the colon, sequelae of colitis is a consideration. 2. No evidence diverticulitis masses or bowel obstruction. Normal appendix noted. 3. No evidence of renal calcification or obstructive uropathy. 4. No evidence of cholelithiasis or ductal dilatation. 5. Prominence the uterus, endometrium is estimated at approximately 8 to 9 mm. No pelvic masses or abnormal fluid collections. Electronically Signed: Eladio Sheridan MD at 20:16 EDT ,
== END 2024-07-24 21:17 | disposition home or self-care (01) ==
PROVIDERS: Emergency Provider Emergency Medicine; PCP Family Medicine; Visit Provider Emergency Medicine
DX: O86.4 Pyrexia of unknown origin following delivery (principal); J02.9 Acute pharyngitis, unspecified; N89.8 Other specified noninflammatory disorders of vagina; N93.9 Abnormal uterine and vaginal bleeding, unspecified; D72.819 Decreased white blood cell count, unspecified; N80.9 Endometriosis, unspecified; Z79.899 Other long term (current) drug therapy; O86.12 Endometritis following delivery; O99.13 Other diseases of the blood and blood-forming organs and certain disorders involving the immune mechanism complicating the puerperium; O90.89 Other complications of the puerperium, not elsewhere classified; B96.4 Proteus (mirabilis) (morganii) as the cause of diseases classified elsewhere; O99.53 Diseases of the respiratory system complicating the puerperium; O99.893 Other specified diseases and conditions complicating puerperium
CPT/HCPCS: 74177; 80053; 81001; 83630; 84703; 85025; 87040; 87493; 87506; 99282; Q9967; A4216

== ENCOUNTER 2024-07-25 13:29 | Outpatient (CLI) | payer OTHER, SELFPAY ==
[2024-07-25] MEDS: 0.9% NaCl Peripheral Flush Adult/Peds IV (13:40)
[2024-07-25 13:41] VITALS: BP 105/72; PULSE 78; RESP 16; O2SAT 96
[2024-07-25] MEDS: Meropenem 1 GM in 0.9% Normal Saline (100mL MB+) 100 ML IV (13:41)
[2024-07-25] MEDS: 0.9% NaCl IVPB Med Flush (250 mL) 15 ML IV (13:41)
[2024-07-25 14:22] VITALS: BP 109/80; PULSE 81
== END 2024-07-25 23:59 | disposition home or self-care (01) ==
LOC: MEDOUTP 13:29
PROVIDERS: PCP Family Medicine; Referring Provider Obstetrics & Gynecology; Visit Provider Obstetrics & Gynecology
DX: O86.12 Endometritis following delivery (principal)
CPT/HCPCS: 96365; J2185; J7050; A4216

== ENCOUNTER → 2024-08-22 | Outpatient (CLI) | payer OTHER, SELFPAY ==
[2024-09-02 15:09] LABS: HPV APTIMA, High Risk Negative (Negative)
== END | disposition home or self-care (01) ==
LOC: LABSPEC 11:59
PROVIDERS: PCP Family Medicine; Referring Provider Advanced Practice Midwife; Visit Provider Advanced Practice Midwife
DX: Z12.4 Encounter for screening for malignant neoplasm of cervix (principal); N89.8 Other specified noninflammatory disorders of vagina
CPT/HCPCS: 87070; 87205; 87624; 88175; G0145

== ENCOUNTER → 2025-04-27 | Outpatient (CLI) | payer OTHER, SELFPAY ==
--- NOTE | 2025-04-27 16:16 | MRI_ITS ---
PROCEDURE: LOWER EXT/NO JT/W/O 04/27/2025 REASON FOR EXAM: FRACTURE 5TH METATARSAL, RIGHT, ACHILLES TENDONITIS TECHNIQUE: T1, T2, stir, LOWER EXT/NO JT/W/O Multiplanar and multisequence images were obtained without IV contrast administration. COMPARISON: COMPARISON : None FINDINGS: Bone Marrow: There is marrow edema within an an os vesalianum pedis versus chronic nonunion fracture at the base of the 5th metatarsal which is corticated. There is marrow edema within the adjacent distal inferior cuboid. The talar dome and distal tibial articular surfaces are normal in appearance. Effusion: There is a small effusion of the tibiotalar articulation and posterior subtalar joint. Soft Tissues: The Achilles and plantar fascia origins appear intact. There is a trace amount of fluid in the pre Achilles bursa, with bursitis. Ligaments and Tendons: Flexor and extensor tendons appear intact. There is normal signal in the sinus tarsi. There is edema, thickening and attenuation between the long plantar ligament between the cuboid and 5th metatarsal, grade 2 sprain. MRI/Lower Ext/No Jt/w/o IMPRESSION: There is marrow edema within an an os vesalianum pedis versus chronic nonunion fracture at the base of the 5th metatarsal which is corticated. There is marrow edema within the adjacent distal inferior cuboid. There is a trace amount of fluid in the pre Achilles bursa, with bursitis. There is a small effusion of the tibiotalar articulation and posterior subtalar joint. There is edema, thickening and attenuation between the long plantar ligament be tween the cuboid and 5th metatarsal, grade 2 sprain. Reading Location: [facility]
--- OUTSIDE RECORDS SUMMARY | 2025-04-27 23:21 | XMS RPT_ITS | CCD ---
Author Organization [facility] Care Team Providers Care Legal Support Assistant Name Role Phone David PA-C, Mei D Primary Care Provider [phone] Kristian Parikh DO Unavailable Bert PA-CAngélicaJosefa R Unavailable [place] PA, PA-C Mei Primary Care Provider [place] PA, PA-C Mei Referring Provider Sarah MARCIAL, INSTRUCTOR MILITARY SCIENCE-C Angy Bucio Attending Provider [phone] [address] Obando Attending Provider [phone] [address] Obando Other Provider [place] PA-C, Mei D Primary Care Provider [phone] Kristian Parikh DO Unavailable Bert PA-C, Josefa R Unavailable ABDON DRUMMOND Referring Unavailable MAGGY HERNANDEZLY D Primary Care Unavailable [place] PA, PA-C Mei Primary Care Provider [place] PA, PA-C Mei Referring Provider Dr. Abdon Drummond Attending Provider OSMEL Fraire Attending Provider [phone] [place] PA, PA-C Mei Primary Care Provider [place] PA, PA-C Mei Referring Provider Dr. Abdon Drummond Attending Provider [phone] OSMEL Fraire Attending Provider Dr. Julianne Antony Attending Provider [phone] OSMEL Munoz Attending Provider Janeth FARLEY, Ivan Devine Unavailable Cardiology Provider Unavailable Unavailable Tom WOODY, Dr. Mei Chatman Unavailable [phone] Neurology Provider Unavailable Unavailable Rheumatolgy Provider Unavailable Unavailable Diana MUNICIPAL SERVICES MANAGER, Rosy Unavailable Day MUNICIPAL SERVICES MANAGER, Yanique Unavailable Unavailable Mei Hernandez PA-C Unavailable [phone] Alfred MUNICIPAL SERVICES MANAGER, Farnaz Unavailable Unavailable King ANIKET-C, Haven Alejandra Unavailable Boris RN, Aixa Unavailable Roby ALVA, Suki Kenney Unavailable Unavailable Jr FARLEY, Anyi Burdick Unavailable Beto BOLIVAR, Sheri Hartmann Unavailable Bobby Teixeira MD Unavailable [phone] Vess MUNICIPAL SERVICES MANAGER, Luis Fisher Unavailable Unavailable Unavailable Unavailable Mei Hernandez PA-C Primary Care Provider Josefa Noel PA-C Unavailable Unavailable Primary Care Provider UnavailANGELI Kimble Admitting Unavailable ANGELI GIBSON Attending Unavailable THUY GARCIA Consulting Unavailabl e MEI HERNANDEZ Primary Care Unavailable DEBORAH SUERO Attending Unavailable ANGELI GIBSON Referring Unavailable KAYLA PEREZ Attending Unavailable MEI HERNANDEZ Primary Care Unavailable DARIANA HART Referring Unavailabl e MEI HERNANDEZ Primary Care Unavailable MITZI BESS Attending Unavailable DARIANA HART Referring Unavailabl e MAGGY HERNANDEZLY D Primary Care Unavailable DARIANA HART Referring Unavailabl e KAYLA PEREZ A Attending Unavailable MEI HERNANDEZ D Primary Care Unavailable DARIANA HART Referring Unavailabl e DESIREE PEREZZIZ A Attending Unavailable MAGGY HERNANDEZLY D Primary Care Unavailable DARIANA HART Referring Unavailabl e KAYLA PEREZ A Attending Unavailable MEI HERNANDEZ Primary Care Unavailable DARIANA HART Referring Unavailabl e [facility] Primary Care Unavailable ANGELI GIBSON Attending Unavailable DARIANA HART Referring Unavailabl sybil [facility] D Primary Care Unavailable LILIANA SYED Attending Unavailable DARIANA HART Referring Unavailabl e [facility] Primary Care Unavailable CLAUDIA AGUILERA Referring Unavailable ANGELI GIBSON Attending Unavailable [facility] D Primary Care Unavailable ANGELI GIBSON Attending Unavailable WILLYCLAUDIA S Referring Unavailable [facility] Attending Unavailable [facility] Primary Care Unavailable DARIANA AHRT Referring Unavailabl e PEREZKAYLA A Attending Unavailable [facility] Primary Care Unavailable DARIANA HART Referring Unavailabl e LUCINDA BAR F Attending Unavailable [facility] Primary Care Unavailable DARIANA HART Referring Unavailabl e LUCINDA BAR F Attending Unavailable [facility] Primary Care Unavailable DARIANA HART Referring Unavailabl e [place] INSTRUCTOR MILITARY SCIENCE, Claudia Attending Unavailable [place] INSTRUCTOR MILITARY SCIENCE, Claudia Referring Unavailable [facility] Primary Care Unavailable [facility] Care Unavailable Julianne Antony Referring Unavailabl e Teoe Julianne Oneal Attending Unavailabl e Marianne Fraire Referring Unavailable Marianne Fraire Attending Unavailable [facility] Unavailable Julianne Antony Referring Unavailabl [facility] Care Unavailable Julianne Antony Attending Unavailabl e [facility] Care Unavailable Julianne Antony Attending Unavailabl e Vande VelJulianne conrad Admitting Unavailabl e Vande VelJulianne conrad Referring Unavailabl e Vande Julianne Oneal Attending Unavailabl e [facility] Primary Care Unavailable Marianne Fraire Referring Unavailable Marianne Fraire Attending Unavailable [facility] Care Unavailable [facility] Primary Care Unavailable Julianne Antony Referring Unavailabl e Vande Velhouston, Julianne Attending Unavailabl e Vande VelJulianne conrad Admitting Unavailabl e Dariana Hart Attending Unavailable Dariana Hart Referring Unavailable [place] PA, Mei Primary Care Unavailable FriendTopher Attending Unavailable FriendTopher Referring Unavailable [place] PA, Mei Primary Care Unavailable Teoe Velhouston, Julianne Attending Unavailabl e Vande VeldeJulianne Referring Unavailabl e [place] PA, Mei Primary Care Unavailable Vande Velhouston, Julianne Attending Unavailabl e [place] PA, Mei Primary Care Unavailable Vande Velhouston, Julianen Referring Unavailabl e Vande Velde, Julianne Attending Unavailabl e [place] PA, Mei Primary Care Unavailable Vande Velde, Julianne Referring Unavailabl e Vande Velde, Julianne Attending Unavailabl e Vande Velde, Julianne Referring Unavailabl e [place] PA, Mei Primary Care Unavailable Vande Velhouston, Julianne Attending Unavailabl e Vande Velde, Julianne Referring Unavailabl e [place] PA, Mei Primary Care Unavailable Vande Velhouston, Julianne Attending Unavailabl e Vande Velde, Julianne Referring Unavailabl e [place] PA, Mei Primary Care Unavailable Vande Velhouston, Julianne Attending Unavailabl e Vande Velde, Julianne Referring Unavailabl e [place] PA, Mei Primary Care Unavailable FriendTopher Attending Unavailable [place] PA, Mei Referring Unavailable [place] PA, Mei Primary Care Unavailable Vande Kimmy, Julianne Attending Unavailabl e [place] PA, Mei Primary Care Unavailable Vande Velhouston, Julianne Referring Unavailabl e Vande Velde, Julianne Referring Unavailabl e [place] PA, Mei Primary Care Unavailable Teoe Kimmy, Julianne Attending Unavailabl Marianne Vega Referring Unavailable Marianne Fraire Attending Unavailable [place] PA, Mei Primary Care Unavailable [place] PA, Mei Referring Unavailable [place] PA, Mei Primary Care Unavailable Vande Velhouston, Julianne Attending Unavailabl Farrah Loyd Attending Unavailable [place] PA, Mei Primary Care Unavailable [place] PA, Mei Referring Unavailable [place] PA, Mei Primary Care Unavailable Vande Kimmy, Julianne Attending UnavailMarianne Xie Attending Unavailable [place] PA, Mei Referring Unavailable [place] PA, Mei Primary Care Unavailable [place] PA, Mei Referring Unavailable [place] PA, Mei Primary Care Unavailable Vande Velhouston, Julianne Attending Unavailabl e [place] PA, Mei Referring Unavailable [place] PA, Mei Primary Care Unavailable Teoe Velhouston, Julianne Attending Unavailabl e [place] PA, Mei Referring Unavailable Vande Velhouston, Julianne Attending Unavailabl e [place] PA, Mei Primary Care Unavailable Marianne Fraire Attending Unavailable [place] PA, Mei Referring Unavailable [place] PA, Mei Primary Care Unavailable Marianne Fraire Attending Unavailable [place] PA, Mei Referring Unavailable [place] PA, Mei Primary Care Unavailable Dariana Hart Attending Unavailable [place] PA, Mei Referring Unavailable [place] PA, Mei Primary Care Unavailable [place] PA, Mei Referring Unavailable [place] PA, Mei Primary Care Unavailable Vande Velhouston, Julianne Attending Unavailabl e Dariana Hart Attending Unavailable [place] PA, Mei Referring Unavailable [place] PA, Mei Primary Care Unavailable Constance Munoz Attending Unavailable [place] PA, Mei Referring Unavailable [place] PA, Mei Primary Care Unavailable [place] PA, Mei Referring Unavailable [place] PA, Mei Primary Care Unavailable Vande Kimmy, Julianne Attending Unavailabl e Constance Munoz Attending Unavailable [place] PA, Mei Referring Unavailable [place] PA, Mei Primary Care Unavailable [place] PA, Mei Referring Unavailable [place] PA, Mei Primary Care Unavailable Teoe Kimmy, Julianne Attending Unavailabl e [place] PA, Mei Referring Unavailable Vande Velde, Julianne Attending Unavailabl e [place] PA, Mei Primary Care Unavailable [place] PA, Mei Primary Care Unavailable Teoe Kimmy, Julianne Attending Unavailabl e Vande Velde, Julianne Admitting Unavailabl e Vande Velde, Julianne Consulting Unavailabl e Willy INSTRUCTOR MILITARY SCIENCE, Claudia Attending Unavailable Vande Velde, Julianne Referring Unavailabl e [place] PA, Mie Primary Care Unavailable Vande Velde, Julianne Admitting Unavailabl e Vande Velde, Julianne Consulting Unavailabl e Vande VeldeJulianne Attending Unavailabl e [place] PA, Mei Primary Care Unavailable Vande Velde, Julianne Admitting Unavailabl e Vande Velde, Julianne Consulting Unavailmichell e Marianne Fraire Referring Unavailable Marianne Fraire Consulting Unavailable Vande Velhouston, Julianne Attending Unavailabl e [place] PA, Mei Primary Care Unavailable Marianne Fraire Referring Unavailable Marianne Fraire Attending Unavailable [place] PA, Mei Primary Care Unavailable Marianne Fraire Referring Unavailable Marianne Fraire Attending Unavailable [place] PA, Mei Primary Care Unavailable Friend, Topher Attending Unavailable Friend, Topher Referring Unavailable [place] PA, Mei Primary Care Unavailable [place], MEI Attending Unavailable [place], MEI Admitting Unavailable [place], MEI Primary Care Unavailable [place], MEI Consulting Unavailable PROVIDER, UNKNOWN Consulting Unavailable [place], MEI Attending Unavailable [place], MEI Admitting Unavailable [place], MEI PAC Consulting Unavailable [place], MEI Primary Care Unavailable PROVIDER, UNKNOWN Consulting Unavailable [place], MEI Consulting Unavailable [place], MEI Attending Unavailable [place], MEI Admitting Unavailable [place], MEI Primary Care Unavailable PROVIDER, UNKNOWN Consulting Unavailable Kristian Parikh DO Unavailable [phone] [place], MEI Primary Care Unavailable [place], MEI Referring Unavailable JACOBO FRANCIS Attending Unavailable [place], MEI D Primary Care Unavailable MARY HERRERA Referring Unavailable [place], MEI D Primary Care Unavailable [place], MEI D Primary Care Unavailable [place], MEI D Primary Care Unavailable MIKE MCCARTHY Attending Unavailable [place], MEI D Primary Care Unavailable ZURDO ARAIZA Attending Unavailable Allergies Allergy Classification Reported Allergen(s) Allergy Type Date of Onset Reaction(s) Facility (9 sources) natural latex rubber; Translations: [Latex, Natural Rubber] Allergy to substance 1 Other [facility] (20 sources) Penicillins; Translations: [PENICILLINS] Allergy to substance 4 Rash, [facility] (20 sources) Latex; Translations: [LATEX] Drug Allergy 1 Other: See Comments [facility] (1 source) Penicillin V Drug Allergy [facility], [facility], [facility] (1 source) Penicillins Drug allergy (disorder) [facility] Repository Medications Current Medications Medication Drug Class(es) Dates Sig (Normalized) Sig (Original) cefdinir 300 mg oral capsule (1 source) Cephalosporin Antibacterial Start: 01-14-2024 End: 01-21-2024 take 1 capsule by mouth twice daily cefdinir (OMNICEF) 300 mg capsule Take 1 capsule by mouth two times a day for 7 days. 14 capsule 0 01/14/2024 01/21/2024 Active Comment on above: Take 1 capsule by mo [facility] two times a day for 7 days. doxycycline hyclate 100 mg oral tablet (10 sources) Tetracycline-class Drug Start: 03-30-2025 End: 04-04-2025 take 1 tablet by mouth twice daily doxycycline (VIBRA-TABS) 100 mg tablet Take 1 tablet by mouth two times a day for 5 days. 10 tablet 03/30/2025 04/04/2025 Active Start: 09-27-2022 End: 10-04-2022 take 1 tablet by mouth twice daily doxycycline monohydrate 100 mg tablet Take 1 tablet by mouth twice daily for 7 days. 14 tablet 0 09/27/2022 10/04/2022 Active Start: 11-04-2019 End: 11-11-2019 take 100 mg by mouth twice daily Doxycycline Monohydrate Discontinued 100 MG PO TWICE A DAY 14 7 November 04, 2019 1:00am November 11, 2019 1:08am Comment on above: Take 1 tablet by [facility] twice daily for 7 days. Famotidine (7 sources) Histamine-2 Receptor Antagonist take 1 tablet by mouth twice daily famotidine (Pepcid) 20 MG tablet Take 20 mg by mouth 2 times daily. Active famotidine (PEPC ID ORAL) Take by mouth. Active ferrous sulfate 325 mg oral tablet (2 sources) take 1 tablet by alvino once daily at breakfast ferrous sulfate 325 (65 Fe) MG tablet Take 325 mg by mouth daily (with breakfast). Active Magnesium (20 sources) Start: 03-16-2021 take 200 mg by mouth once daily Magnesium Active 200 MG PO DAILY March 16, 2021 5:41pm Start: 03-16-2021 take 200 mg by mouth once daily Magnesium Active 200 MG PO DAILY March 16, 2021 12:00am Start: 03-16-2021 take 200 mg by mouth once daily Magnesium Active 200 MG PO DAILY March 15, 2021 11:00pm End: 07-02-2023 Magnesium 200 mg tab Take by mouth. 07/02/2023 Discontinued (Course of therapy completed) End: 07-02-2023 Magnesium 200 mg tab Take by mouth. 0 07/02/2023 Discontinued (Course of therapy completed) Magnesium 200 mg tab Take by mouth. 0 Active Comment on above: Take by mouth. magnesium aspart,citrate,oxide (TRIPLE MAGNESIUM COMPLEX) 400 mg magnesium cap (5 sources) magnesium aspart,citrate,oxid e (TRIPLE MAGNESIUM COMPLEX) 400 mg magnesium cap Take by mouth as directed. Active magnesium oxide 400 mg oral tablet (2 sources) take 1 tablet by mouth once daily magnesium oxide (Mag-Ox) 400 mg tablet Take 400 mg by mouth daily. Active ondansetron 4 mg disintegrating oral tablet (9 sources) Serotonin-3 Receptor Antagonist Start: take 4 mg by mouth every eight hours Ondansetron Active 4 MG PO Q8H December 10, 2023 12:00am Start: 11-04-2019 End: 11-10-2019 take 4 mg by mouth every eight hours as needed Ondansetron Discontinued 4 MG PO EVERY 8 HOURS NEEDED 15 03November 04, 2019 1:00am November 10, 2019 1:08am Pnv Cmb#95-Ferrous Fumarate-Fa (3 sources) Start: 11-30-2023 take 1 tablet by mouth once daily Pnv Cmb#95-Ferrous Fumarate-Fa Active 1 TABLET PO DAILY November 30, 2023 1:00am Start: 11-30-2023 take 1 tablet by [facility] once daily Pnv Cmb#95-Ferrous Fumarate-Fa Active 1 TABLET PO DAILY November 30, 2023 12:00am predniSONE 10 mg oral tablet (2 sources) Start: 06-10-2023 End: 06-15-2023 take 4 tablets by mouth once daily [...] Comment on above: Take 2 tablets by mo ut once daily for 5 days. Take 4 tablets by mo uth once daily for 5 days. MV-Min-Fe Fum-FA-DHA ( 1 PO) (2 sources) MV-Min- Fe Fum-FA-DHA ( 1 PO) Take by mouth. Active vit no.124/iron/folic ( VITAMIN ORAL) (5 sources) vit no.124/iron/folic ( VITAMIN ORAL) Take by mouth. Active Vit,[id number]-Geeb-Gslg c (Prenatabs Fa) 29-1 mg Tablet (8 sources) Start: 03-17-2021 take 1 tablet by mouth once daily Vit,Uxnu54-Ikdb-Ztz ic (Prenatabs Fa) 29-1 mg Tablet Active 1 TABLET PO DAILY March 17, 2021 7:45pm Start: 03-17-2021 End: 07-02-2023 take 1 tablet by mouth once daily Vit,Ofsi88-Usyh-Jenjb (Prenatab s Fa) 29-1 mg Tablet Discontinued 1 TABLET PO DAILY March 17, 2021 12:00am July 02, 2023 1:36pm Start: 03-17-2021 End: 07-02-2023 take 1 tablet by mouth once daily Vit,Rsgb21-Wjwt-Oemgk (Prenatab s Fa) 29-1 mg Tablet Discontinued 1 TABLET PO DAILY March 16, 2021 11:00pm July 02, 2023 12:36pm Start: 03-17-2021 take 1 tablet by alvino th once daily Vit,Okzs63-Lnns-Inels (Prenatab s Fa) 29-1 mg Tablet Active 1 TABLET PO DAILY March 17, 2021 12:00am Start: 03-17-2021 take 1 tablet by alvino th once daily Vit,Xlsz28-Gnjo-Iaiyt (Prenatab s Fa) 29-1 mg Tablet Active 1 TABLET PO DAILY March 16, 2021 11:00pm Completed/Discontinued Medications Medication Drug Class(es) Dates Sig (Normalized) Sig (Original) Acetaminophen (2 sources) Start: 06-06-2024 End: 06-07-2024 take 1 tablet by mouth every six hours as needed for pain and fever acetaminophen (Tylenol) tablet 650 mg acetaminophen 325 mg / oxyCODONE hydrochloride 5 mg oral tablet (8 sources) Opioid Agonist Start: 11-04-2019 End: 11-08-2019 take 1 tablet by mouth every six hours Oxycodone-Acetamino phen Discontinued 1 - 2 TABLET PO EVERY 6 HOURS 18 01November 04, 2019 November 08, 2019 1:09am acetylcholine 10% solution - [facility] compounding (10 [...] 30 {Tablet} Refills: 0 Ordered: 28-Oct-2014 MIGUELITO Hernandez Start: 28-Oct-2014 End: 07-Nov-2014 Status: Inactive Start: [...] 30 {Tablet} Refills: 0 Ordered: 21-Jul-2014 MIGUELITO eHrnandez Start: 29-Jun-2014 End: 09-Jul-2014 Status: Inactive Comment on above: Apply at symptom ons et ALPRAZolam 0.25 mg oral tablet (1 source) Benzodiazepine Start: 07-18-20 16 End: 05-22-20 18 take 0.5-1 tablets by mouth three times daily as needed Xanax 0.25 MG Oral Tablet ; 1/2 to 1 Tablet Tablet three times a day as needed for 0 days Quantity: 30 {Tablet} Refills: 0 Ordered: 22-May-2018 ARTIE Ca Start: 18-Jul-2016 End: 22-May-2018 Status: Inactive Comments: Medication taken as needed. Comment on above: Medication taken as needed. aspirin 81 mg delayed release oral tablet (8 sources) Platelet Aggregation Inhibitor, Nonsteroidal Anti-inflammatory Drug Start: 03-16-20 End: 04-20-20 take 1 tablet by mouth once daily Aspirin (Aspir-Low) 81 mg Tablet,Delayed Release (Dr/Ec) Discontinued 81 MG PO DAILY March 16, 2021 12:00am April 20, 2021 12:37pm azithromycin 250 mg oral tablet (9 sources) Macrolide Antimicrobial Start: 09-19-20 End: 09-19-20 take 1 tablet by mouth once daily Azithromycin Discontinued 1 TABLET PO DAILY September 19, 2019 1:00am September 19, 2019 9:54pm Start: 02-28-2019 End: 05-15-2019 Zithromax Z-Graham 250 MG Oral Tablet ; 2 (two) Tablet today and then 1 tablet daily x 4 days for 0 days Quantity: 1 {Package} Refills: 0 Ordered: 15-May-2019 MAXINE Roberts Start: 28-Feb-2019 End: 15-May-2019 Status: Inactive betamethasone 3 mg/ml / betamethasone acetate 3 mg/ml injectable suspension (2 sources) Corticosteroid Start: 06-06-2024 End: 06-06-2024 inject 6 mg [...] at 0445 cephalexin 500 mg oral capsule (9 sources) Cephalosporin Antibacterial Start: 09-19-2019 End: 09-26-2019 take 500 mg by mouth twice daily Cephalexin Discontinued 500 MG PO TWICE A DAY September 19, 2019 1:00am September 26, 2019 4:52pm Start: 05-15-2019 End: 05-25-2019 take 1 capsule [...] Hernandez Start: 04-Mar-2013 End: 13-Oct-2013 Status: Inactive clindamycin 300 mg oral capsule (16 sources) Lincosamide Antibacterial Start: 10-09-2019 End: 10-16-2019 take 300 mg by mouth every six hours Clindamycin Hcl Discontinued 300 MG PO EVERY 6 HOURS 30 October 09, 2019 1:00am October 16, 2019 11:18am Start: 09-19-2019 End: 10-03-2019 take 300 mg by mouth four times daily Clindamycin Hcl Discontinued 300 MG PO 4 TIMES DAILY 40 September 19, 2019 1:00am October 03, 2019 10:59am dicyclomine hydrochloride 20 mg oral tablet (4 sources) Anticholinergic Start: 03-07-2023 End: 11-30-2023 take 20 mg by mouth twice daily Dicyclomine Discontinued 20 MG PO TWICE A DAY 60 March 07, 2023 12:00am November 30, 2023 2:06pm docusate sodium 100 mg oral capsule (2 sources) Start: 06-06-2024 End: 06-07-2024 escitalopram 10 mg oral tablet (12 sources) Serotonin Reuptake Inhibitor Start: 05-13-2021 End: 07-02-2023 take 0.5 tablet by mouth once daily escitalopram oxalate (LEXAPRO) 10 mg tablet Take 0.5 tablets by mouth once daily. 30 tablet 1 05/13/2021 07/02/2023 Discontinued (Course of therapy completed) take 1 tablet by mouth once blaine y escitalopram oxalate (LEXAPRO) 5 mg tablet Take 5 mg by mouth once daily. Active Comment on above: Take 0.5 tablets by [...] Roberts Start: 27-May-2014 End: 26-Jun-2014 Status: Inactive ibuprofen 600 mg oral tablet (16 sources) Nonsteroidal Anti-inflammatory Drug Start: 04-20-2021 End: 11-30-2023 take 600 mg by mouth every six hours Ibuprofen Discontinued 600 MG PO EVERY 6 HOURS 30 07April 20, 2021 12:00am November 30, 2023 2:06pm Start: 09-19-2019 End: 2019 take 600 mg by mouth three times daily Ibuprofen Discontinued 600 MG PO THREE TIMES A DAY September 19, 2019 9:53pm 2019 9:53am levoFLOXacin 500 mg oral tablet (1 source) [...] on above: Take 1 tablet by alvino once daily. Multivitamin preparation (8 sources) Start: 2019 End: 04-20-2021 Multivitamin Discontinued 1 EACH PO DAILY 2019 5:12pm April 20, 2021 12:37pm Start: 2019 End: 04-20-2021 Multivitamin Discontinued 1 EACH PO DAILY 2019 1:00am April 20, 2021 12:37pm Start: 2019 End: 04-20-2021 Multivitamin Discontinued 1 EACH PO DAILY 2019 12:00am April 20, 2021 11:37am NIFEdipine 10 mg oral capsule (4 sources) Dihydropyridine Calcium Channel Jhoana Start: 06-06-2024 End: 06-07-2024 take 1 dose by mouth four times [...] po every 6 hours. Hold for SBP nitrofurantoin, macrocrystals 25 mg / nitrofurantoin, monohydrate 75 mg oral capsule (8 sources) Nitrofuran Antibacterial Start: 09-26-2019 End: 10-03-2019 take 1 capsule by mouth twice daily at mealtime Nitrofurantoin Monohyd/M-Cryst (Macrobid) 100 mg capsule Discontinued 100 MG PO TWICE A DAY September 26, 2019 1:00am October 03, 2019 10:59am must administer with a meal/food ondansetron ODT (Zofran-ODT) disintegrating tablet 4 mg (2 sources) Start: 06-06-2024 End: 06-07-2024 take 1 tablet by mouth every eight hours as needed for nausea and vomiting ondansetron ODT (Zofran-ODT) disintegrating tablet 4 mg pantoprazole 40 mg delayed release oral tablet (13 sources) Proton Pump Inhibitor Start: 03-07-2023 End: 11-30-2023 take 40 mg by mouth once daily in the morning Pantoprazole Discontinued 40 MG PO EVERY MORNING March 07, 2023 12:00am November 30, 2023 2:06pm Start: 07-20-2020 End: 04-20-2021 take 1 tablet by mouth once daily Pantoprazole (Protonix) 20 mg Tablet,Delayed Release (Dr/Ec) Discontinued 20 MG PO DAILY March 17, 2021 12:00am April 20, 2021 12:37pm vitamin tablet (2 sources) Start: 06-06-2024 End: [...] Ca Start: 29-Jun-2014 End: 28-Oct-2014 Status: Inactive sucralfate 1000 mg oral tablet (4 sources) Aluminum Complex Start: 03-07-2023 End: 11-30-2023 take 1 g by mouth before mealtime Sucralfate Discontinued 1 GM PO before meals 90 March 07, 2023 12:00am November 30, 2023 2:06pm vitamin e 450 mg oral capsule (1 source) Vitamin E Comple x Status: Inactive Problems Active Problems Problem Classification Problem Date Documented Date Episodic/Chronic Abdominal pain (20 sources) Lower abdominal pain; Translations: [Lower abdominal pain, unspecified] Onset: 08-15-2024 Episodic Anxiety disorders (20 sources) Anxiety; Translations: [Anxiety disorder, unspecified] Onset: 05-13-2021 05-13-2021 Chronic Bacterial infection; unspecified site (3 sources) Streptococcus, group B, as the cause of diseases classified elsewhere; Translations: [Other specified bacterial agents as the cause of diseases classified elsewhere] Onset: 06-09-2024 Episodic Cardiac dysrhythmias (20 sources) Premature atrial contraction; Translations: [Atrial premature depolarization] Onset: 09-01-2015 09-01-2015 Chronic Conditions associated with dizziness or vertigo (1 source) Dizziness; Translations: [Dizziness and giddiness] 12-23-2018 Episodic Diseases of mouth; excluding dental (1 source) Oral lesion; Translations: [Other lesions of oral mucosa] 10-28-2014 Episodic Diseases of white blood cells (1 source) Decreased white blood cell count, unspecified; Translations: [Decreased white blood cell count, unspecified] Onset: 11-06-2024 Chronic Disorders of teeth and jaw (8 sources) Loss of teeth due to extraction; Translations: [Partial loss of teeth, unspecified cause, unspecified class] 04-20-2021 Episodic Early or threatened labor (18 sources) Uterine contractions present; Translations: [False labor, unspecified] Onset: 06-06-2024 04-20-2021 Episodic Esophageal disorders (2 sources) Gastroesophageal reflux disease; Translations: [Gastro-esophageal reflux disease without esophagitis] 07-20-2020 Chronic Female infertility (1 source) Female infertility; Translations: [Female infertility, unspecified] 07-20-2023 Chronic Fever of unknown origin (2 [...] of urination] 02-28-2019 Episodic Heart valve disorders (20 sources) Tricuspid incompetence, non-rheumatic ; Translations: [Nonrheumatic tricuspid (valve) insufficiency] Onset: 09-01-2015 09-01-2015 Chronic Hypertension complicating ; childbirth and the puerperium (8 sources) -induced hypertension; Translations: [Gestational [-induced] hypertension without significant proteinuria, third trimester] 04-28-2021 Episodic Immunity disorders (3 sources) Cryoglobulinemia; Translations: [Cryoglobulinemia] 06-23-2020 Chronic Immunizations and screening for infectious disease (6 sources) Raised antinuclear antibody; Translations: [Other specified abnormal immunological findings in serum] 06-23-2020 Episodic Inflammatory diseases of female pelvic organs (1 source) Acute vaginitis; Translations: [Acute vaginitis] Onset: 08-06-2024 Episodic Menstrual disorders (1 source) Irregular periods; Translations: [Irregular menstruation, unspecified] 07-20-2023 Chronic Nausea and vomiting (10 sources) Nausea; Translations: [Nausea] 12-14-2022 Episodic Noninfectious gastroenteritis (10 sources) Postprandial diarrhea; Translations: [Noninfective gastroenteritis and colitis, unspecified] 12-14-2022 Episodic Nutritional deficiencies (2 sources) Vitamin D deficiency; Translations: [Vitamin D deficiency, unspecified] Onset: 11-06-2024 01-08-2017 Chronic Other complications of ; puerperium affecting management of mother (1 source) Endometritis following delivery; Translations: [Endometritis following delivery] Onset: 08-18-2024 Episodic Other complications of (2 sources) Anemia complicating , unspecified trimester; Translations: [Anemia complicating , unspecified trimester] Onset: 06-09-2024 Chronic Other complications of (1 source) Obesity complicating , unspecified trimester; Translations: [Obesity complicating , unspecified trimester] Onset: 12-28-2023 Chronic Other complications of (3 sources) Left lower quadrant pain; Translations: [Other specified related conditions, first trimester] 11-27-2023 Episodic Other complications of (3 sources) High risk ; Translations: [Supervision of high risk , unspecified, unspecified trimester] 11-30-2023 Episodic Other complications of (7 sources) Supervision of high risk , unspecified, unspecified trimester; Translations: [Supervision of unspecified high-risk ] Onset: 07-24-2024 11-30-2023 Episodic Other complications of (2 sources) Urinary tract infection in ; Translations: [Unspecified infection of urinary tract in , unspecified trimester] 12-03-2023 Episodic Other complications of (4 sources) Unspecified infection of urinary tract in , unspecified trimester; Translations: [Infections of genitourinary tract in , unspecified as to episode of care or not applicable] Onset: 06-09-2024 12-10-2023 Episodic Other complications of (1 source) Supervision of high risk , unspecified, third trimester; Translations: [Supervision of high risk , unspecified, third trimester] Onset: 07-25-2024 Episodic Other complications of (2 sources) Other specified related conditions, unspecified trimester; Translations: [Other specified related conditions, unspecified trimester] Onset: 06-09-2024 Episodic Other complications of (1 source) Unspecified abnormal findings on screening of mother; Translations: [Unspecified abnormal findings on screening of mother] Onset: 07-23-2024 Episodic Other connective tissue disease (4 sources) Muscle weakness; Translations: [Muscle weakness (generalized)] 06-23-2020 Episodic Other connective tissue disease (2 sources) Other symptoms and signs involving the musculoskeletal system; Translations: [Other musculoskeletal symptoms referable to limbs] 07-23-2018 Episodic Other connective tissue disease (2 sources) Pain in right foot; Translations: [Pain in right foot] 06-03-2024 Episodic Other infections; including parasitic (1 source) Increased susceptibility to infections; Translations: [Unspecified infectious disease] 06-29-2014 Episodic Other lower respiratory disease (1 source) Cough; Translations: [Acute cough] Episodic Other lower respiratory disease (1 source) Cough; Translations: [Acute cough] 05-10-2022 Episodic Other nervous system disorders (20 sources) Small fiber neuropathy; Translations: [Polyneuropathy, unspecified] Onset: 03-17-2022 Chronic Other nervous system disorders (20 sources) Central sensitization; Translations: [Other chronic pain] Onset: 03-17-2022 Chronic Other nervous system disorders (8 sources) Polyneuropathy, unspecified; Translations: [Unspecified hereditary and idiopathic peripheral neuropathy] Onset: 06-09-2024 11-30-2023 Chronic Other nervous system disorders (4 sources) Paresthesia; Translations: [Paresthesia of skin] 06-23-2020 Episodic Other non-traumatic joint disorders (1 source) Joint pain; Translations: [Pain in unspecified joint] 05-22-2018 Episodic Other non-traumatic joint disorders (1 source) Stiffness of unspecified joint, not elsewhere classified; Translations: [Stiffness of unspecified joint, not elsewhere classified] Onset: 10-28-2024 Episodic Other nutritional; endocrine; and metabolic disorders (20 sources) Obese class I; Translations: [Obesity, unspecified] Onset: 10-04-2021 10-04-2021 Chronic Other upper respiratory infections (4 sources) Sinusitis; Translations: [Chronic sinusitis, unspecified] Onset: 03-30-2025 Chronic Other upper respiratory infections (16 sources) Sore throat symptom; Translations: [Acute pharyngitis, unspecified] Onset: 02-01-2025 Episodic Otitis media and related conditions (2 sources) Eustachian tube disorder; Translations: [Unspecified Eustachian tube disorder, unspecified ear] 05-27-2014 Episodic Ovarian cyst (2 sources) Cyst of ovary; Translations: [Unspecified ovarian cyst, unspecified side] 02-21-2023 Episodic Residual codes; unclassified (8 sources) Gestation period, 35 weeks; Translations: [35 weeks gestation of ] 04-20-2021 Episodic Residual codes; unclassified (1 source) Non-smoker; Translations: [Other specified health status] 06-23-2020 Episodic Residual codes; unclassified (2 sources) Unspecified blood type, Rh negative; Translations: [Unspecified blood type, Rh negative] Onset: 06-09-2024 Episodic Residual codes; unclassified (1 source) 36 weeks gestation of ; Translations: [36 weeks gestation of ] Onset: 07-25-2024 Episodic Residual codes; unclassified (2 sources) 32 weeks gestation of ; Translations: [32 weeks gestation of ] Onset: 06-09-2024 Episodic Skin and subcutaneous tissue infections (2 sources) Furuncle; Translations: [Furuncle, unspecified] 10-24-2019 Episodic Spondylosis; intervertebral disc disorders; other back problems (8 sources) Other cervical disc displacement, unspecified cervical region; Translations: [Displacement of cervical intervertebral disc] Onset: 08-04-2023 07-02-2023 Chronic Spondylosis; intervertebral disc disorders; other back problems (6 sources) Chronic pain; Translations: [Cervicalgia] 06-10-2023 Episodic Umbilical cord complication (1 source) Umbilical cord tight around neck - delivered; Translations: [Labor and delivery complicated by cord around neck, with compression, not applicable or unspecified] Episodic Unclassified (1 source) OPENED IN ERROR [...] fever or leg weakness. Note for Back pain: pain radiates to BILATERAL lower legs causing her calves to feel full of pressure; also notes tingling/paresthesia, but not numbness; she is also noting a heal pain bilaterally with certain movements that is limiting her activityshe notes family history of lupus (mom) and her brother has an autoimmune condition as well 05-22-2018 Unclassified (1 source) Patient's noncompliance with other medical treatment and regimen due to unspecified reason; Translations: [Patient's noncompliance with other medical treatment and regimen due to unspecified reason] Onset: 06-25-2024 Urinary tract infections (8 sources) Urinary tract infectious disease; Translations: [Urinary tract infection, site not specified] 04-20-2021 Episodic Viral infection (3 sources) Viral disease; Translations: [Viral infection, unspecified] Episodic Past or Other Problems Problem Classification Problem Date Documented Date Episodic/Chronic Administrative/social admission (7 sources) Issue of repeat prescriptions; Translations: [Person with feared health complaint in whom no diagnosis is made] Onset: 11-04-2018 Resolved: 09-06-2020 06-29-2014 Episodic Cardiac dysrhythmias (10 sources) Palpitations; Translations: [Palpitations] Onset: 08-10-2015 Resolved: 09-06-2020 07-28-2015 Episodic Gastritis and duodenitis (8 sources) Gastritis; Translations: [Gastritis, unspecified, without bleeding] Onset: 10-16-2023 03-07-2023 Episodic Heart valve disorders (20 sources) Heart murmur; Translations: [Cardiac murmur, unspecified] Onset: 08-10-2015 08-10-2015 Episodic Malaise and fatigue (20 sources) Malaise and fatigue; Translations: [Other malaise] Onset: 03-17-2022 Episodic Nonmalignant breast conditions (20 sources) Inflammatory disorder of breast; Translations: [Mastitis without abscess] Onset: 11-21-2019 10-04-2021 Episodic Nutritional deficiencies (20 sources) Vitamin E deficiency; Translations: [Deficiency of vitamin E] Onset: 03-17-2022 Episodic Other complications of (20 sources) H/O: miscarriage; Translations: [Supervision of with other poor reproductive or obstetric history, unspecified trimester] Onset: 08-23-2020 08-23-2020 Episodic Other complications of (20 sources) RhD negative; Translations: [Other specified related conditions, unspecified trimester] Onset: 09-21-2020 09-21-2020 Episodic Other complications of (3 sources) Other specified related conditions, first trimester; Translations: [Other specified complications of , antepartum condition or complication] Onset: 12-01-2023 12-10-2023 Episodic Other connective tissue disease (20 sources) Myofascial pain syndrome; Translations: [Myalgia, other site] Onset: 03-17-2022 Episodic Other connective tissue disease (20 sources) Muscle pain; Translations: [Myalgia, unspecified site] Onset: 02-09-2019 Episodic Other connective tissue disease (20 sources) Aching leg syndrome; Translations: [Pain in leg, unspecified] Onset: 02-09-2019 02-09-2019 Episodic Other connective tissue disease (6 sources) Pain in bilateral legs; Translations: [Pain in right leg] Onset: 11-04-2018 Resolved: 09-06-2020 09-06-2020 Episodic Other connective tissue disease (1 source) Pain in right foot; Translations: [Foot pain, right] Onset: 06-03-2024 Episodic Other nervous system disorders (20 sources) Skin sensation disturbance; Translations: [Unspecified disturbances of skin sensation] Onset: 11-04-2018 Episodic Other and delivery including normal (20 sources) Patient encounter status; Translations: [Encounter for supervision of normal , unspecified, unspecified trimester] Onset: 02-09-2019 Resolved: 11-13-2019 Episodic Other screening for suspected conditions (not mental disorders or infectious disease) (20 sources) Ultrasonography of breast abnormal; Translations: [Other abnormal and inconclusive findings on diagnostic imaging of breast] Onset: 09-28-2021 09-28-2021 Episodic Other skin disorders (6 sources) Disorder of skin; Translations: [Other skin changes] Onset: 02-09-2019 Resolved: 09-06-2020 09-06-2020 Episodic Residual codes; unclassified (20 sources) History of gestational hypertension; Translations: [Personal history of other complications of , childbirth and the puerperium] Onset: 08-23-2020 08-23-2020 Episodic Residual codes; unclassified (20 sources) FH: Congenital heart disease; Translations: [Family history of other congenital malformations, deformations and chromosomal abnormalities] Onset: 08-23-2020 08-23-2020 Episodic Residual codes; unclassified (20 sources) H/O: breast problem; Translations: [Personal history of other complications of , childbirth and the puerperium] Onset: 01-03-2021 01-04-2021 Episodic Residual codes; unclassified (1 source) 30 weeks gestation of ; Translations: [30 weeks gestation of ] Onset: 05-12-2024 Episodic Residual codes; unclassified (1 source) 28 weeks gestation of ; Translations: [28 weeks gestation of ] Onset: 04-28-2024 Episodic Unclassified (7 sources) Cord around neck-deliver 04-28-2021 Unclassified (1 source) Well Adult, female - The patient feels well with minor complaints (paresthesia is worsening). The patient does not exercise. The patient sleeps 5 (has 9 month old baby) hours per night. 06-23-2020 Unclassified (1 source) [ADDITIONAL REASON] Follow up consultation - The patient is here to follow-up after a Neurology consult on : (01/2019). Current symptoms include muscle weakness/parasthesias . Note for Consultation follow-up: pt saw two different neurologists and both [...] do not include fever. Note for Insect bite/sting: area located on her right upper /inner [...] not include smoking. Note for Upper respiratory infection: -Currently 11 weeks . 02-28-2019 Unclassified (1 [...] care from another physician (Rheumatology appt. Dr Verde07/29/18Neurolog y appt - Dr Parikh 08/2018). 08-29-2018 Unclassified (1 source) Form Completion [...] of safety belts. Note for Form completion physical: Pt. has a hazard [facility] medical statement to be completed today. 10-25-2017 [...] recurrent ear infections. Note for Upper respiratory infection: Reviewed by MACARIOK. 08-25-2016 Unclassified (1 source) Anxiety - The onset of the anxiety has been variable and has been occurring in an intermittent pattern for years. The course has been recurrent. The anxiety is characterized as apprehension, expectant dread, nervousness and extreme fear. There are no specific phobias. There were no precipitating factors. The symptoms have been associated with palpitations. Note for Anxiety: states that there is a FH of [...] recurrent ear infections. Note for Upper respiratory infection: Pt. c/o body aches. and nausea this [...] history includes CVA (paternal grandfather). Note for Palpitations: Pt. has been diagnosed with a heart murmur years ago and was referred to a fish boning machine feeder ([facility]oom Dominguez), but no further testing was [...] asthma or tonsillectomy. Note for Upper respiratory infection: Pt c/o sores on tongue, which is [...] recurrent ear infections. Note for Upper respiratory infection: has had open sores on lips x [...] recurrent ear infections. Note for Upper respiratory infection: she had cold symptoms all last week, [...] with similar symptoms. Note for Upper respiratory infection: Had similar symptoms all October - was [...] symptoms do not include fever. Note for UTI: pt just got two weeks ago, had a UTI within 3 days and was in the ER and treated with Macrodantin. 03-04-2013 Unclassified (1 source) Patient's noncompliance with other medical treatment and regimen due to unspecified reason; Translations: [Patient's noncompliance with other medical treatment and regimen due to unspecified reason] Onset: 06-25-2024 Results Test Name Value Interpretation Reference Range Facility [facility] 03-30-2025 CNOV Office Visit ([facility]) WILLIS GAUTAM ([id number]) 1990 F Date Time Provider Department 03/30/25 7:15 AM MIKE MCCARTHY [facility] During your visit today, we recorded the following information about you: Temperature Pulse Respiration Blood pressure 97.9 degrees 70/minute 18/minute 120/80 Weight 98.3 kg Mike Mccarthy APRN.[employer] 03/30/2025 8:16 AM Signed Subjective HPI Nontoxic-appearing 34-year-old female presents urgent care chief plaint sinus pressure headache cough. States cough has improved. Sinus pressure has worsened. Most prominent symptom today is sinus pressure. OTC medications none recently. Unknown sick contacts. No fevers chest pain shortness of breath. Past medical history prescription medications allergies reviewed. Denies chance of . Is not breast-feeding. .Patient presents with: Sinus Problem: Nasal congestion, FIGUEROA, cough x 10 days PAST MEDICAL HISTORY Diagnosis Date Benign heart murmur Breast abscess 10/2019 left extremely dense breast tissue Gestational hypertension (HCC) History of gestational hypertension 08/23/2020 Small fiber neuropathy PAST SURGICAL HISTORY Procedure Laterality Date EXTRACTION, ERUPTED TOOTH OR EXPOSED ROOT (ELEVATION AND/OR FORCEPS REMOVAL) PAST SURGICAL HISTORY OF removal of bereast abcess ALLERGIES Latex and Penicillins MEDICATIONS escitalopram oxalate (LEXAPRO) 5 mg tablet Take 5 mg by mouth once daily. magnesium aspart,citrate,oxide (TRIPLE MAGNESIUM COMPLEX) 400 mg magnesium cap Take by mouth as directed. vit no.124/iron/folic ( VITAMIN ORAL) Take by mouth. (Patient not taking: Reported on 02/01/2025) famotidine (PEPCID ORAL) Take by mouth. (Patient [...] Alcohol use: No Drug use: Never BP 120/80 Pulse 70 Temp 36.6 ?C (97.9 ?F) Resp 18 Wt 98.3 kg (216 lb 11.4 oz) LMP 01/18/2025 (Exact Date) SpO2 97% BMI 32.95 kg/m? Review of Systems Constitutional: Negative for chills, fever and malaise/fatigue. HENT: Positive for congestion and sinus pain. Negative for ear discharge, ear pain and sore throat. Eyes: Negative for blurred vision, pain, discharge and redness. Respiratory: Negative for cough, hemoptysis, sputum production, shortness of breath, wheezing and stridor. Cardiovascular: Negative for chest pain. Gastrointestinal: Negative for abdominal pain, diarrhea, nausea and vomiting. Musculoskeletal: Negative for myalgias. Skin: Negative for itching and rash. Neurological: Positive for headaches. Negative for dizziness. Objective Physical Exam Constitutional: General: She is not in acute distress. Appearance: She is not diaphoretic. HENT: Head: Normocephalic. Jaw: No trismus, tenderness, swelling or pain on movement. Nose: Right Sinus: Maxillary sinus tenderness and frontal sinus tenderness present. Left Sinus: Maxillary sinus tenderness and frontal [...] to person, place, and time. ASSESSMENT/PLAN: 1. Bacterial sinusitis - ICD9: 473.9, 041.9, ICD10: J32.9, B96.89 Diagnosed with bacterial sinusitis. Placed on doxycycline. Patient was educated on supportive therapies. Patient will follow (more content not included)... [facility]OVon 02-01-2025 CNOV Office Visit ([facility]) WILLIS GAUTAM ([id number]) 1990 F Date Time Provider Department 02/01/25 8:15 AM ZURDO ARAIZA [facility] During your visit today, we recorded the following information about you: Temperature Pulse Respiration Blood pressure 99.1 degrees 92/minute 18/minute 112/75 Weight Last Period 97 kg 01/18/25 Zurdo Araiza, RIC.[facility] 02/01/2025 8:52 AM Signed [facility] Subjective Willis Gautam is a 34 year old female. Patient presents with: Sore Throat: Body aches, fever, stomach ache x 4 days Patient is 34 year female that presents with body aches, sore throat and congestion for the last 4 days. Fever began last night. Patient had kids that were sick with croup the last week. She denies any chest pain or shortness of breath. Sore Throat Associated symptoms include congestion and coughing. Pertinent negatives include no abdominal pain, diarrhea, ear discharge, ear pain, headaches, neck pain, shortness of breath or vomiting. Review of Systems Constitutional: Positive for chills and fever. Negative for fatigue. HENT: Positive for congestion, postnasal drip and sore throat. Negative for dental problem, ear discharge, ear pain, mouth sores, nosebleeds, sinus pressure and sinus pain. Respiratory: Positive for cough. Negative for shortness of breath and wheezing. Gastrointestinal: Negative for abdominal pain, constipation, diarrhea and vomiting. Musculoskeletal: Positive for myalgias. Negative for neck pain and neck stiffness. Skin: Negative for rash. Neurological: Negative for headaches. Objective BP 112/75 Pulse 92 Temp 37.3 ?C (99.1 ?F) Resp 18 Wt 97 kg (213 lb 13.5 oz) LMP 01/18/2025 (Exact Date) SpO2 97% BMI 32.52 kg/m? Physical Exam Vitals and nursing note reviewed. Constitutional: General: She is not in acute distress. Appearance: Normal appearance. She is normal weight. She is not toxic-appearing. HENT: Head: Normocephalic and atraumatic. Right Ear: Ear canal and external ear normal. A middle ear effusion is present. Left Ear: Ear canal and external ear normal. A middle ear effusion is present. Nose: Congestion present. Right Sinus: No maxillary sinus tenderness or frontal sinus tenderness. Left Sinus: No maxillary sinus tenderness or frontal sinus tenderness. Mouth/Throat: Mouth: Mucous membranes are moist. Pharynx: Posterior oropharyngeal erythema and postnasal drip present. No pharyngeal swelling, oropharyngeal exudate or uvula swelling. Tonsils: No tonsillar exudate or tonsillar abscesses. Eyes: General: Lids are normal. Pupils: Pupils are equal, round, and reactive to light. Cardiovascular: Rate and Rhythm: Normal rate and regular rhythm. Heart sounds: Normal heart sounds, S1 normal and S2 normal. Pulmonary: Effort: Pulmonary effort is normal. Breath sounds: Normal breath sounds. Abdominal: General: Abdomen is flat. Bowel sounds are normal. Lymphadenopathy: Cervical: Cervical adenopathy present. Neurological: Mental Status: She is alert. {ASSESSMENT/PLAN: 1. Sore throat - ICD9: 462, ICD10: J02.9 (primary diagnosis) - Group A strep molecular testing negative - Discussed supportive care treatment with fluids, rest and analgesia. - Contagious dz precautions discussed- including considered contagious until on antibiotics for 24 hours - The patient should follow up in 3-5 days if symptoms persist or worsen - Call back if drooling, increased temperature, symptoms of dehydration and/or still sick in one week - STREP A MOLECULAR (POC) 2. Viral upper respiratory infection - ICD9: 465.9, ICD10: J06.9 - Discussed viral etiology and rationale for treatment. - Symptomatic treatment with prn analgesia - Supportive care with fluids and rest - The patient may also use OTC decongestants prn, OTC cough and cold meds as needed, warm salt water gargles, throat lozenges and/or OTC throat spray as needed, nasal saline gtts and suction prn, and Follow up with PCP if symptoms persist. Zurdo Araiza APRN.[employer]ER Differential Diagnoses - viral - QA SOFTWARE TESTER/Strep - pneumonia Disposition The patient was discharged. OTC Medications were advised: Tylenol and Ibuprofen patient is well-appearing 34-year-old female with no major medical history presents with a viral upper respiratory infection. No concerns for streptococcal pharyngitis, pneumonia, or acute sinusitis or bacterial process today. Discussed symptom management Tylenol and ibuprofen decongestants Flonase Nasacort as needed. Patient verbalized understanding agreement this plan discharged home. Allergies As of Date: 02/01/2025 Noted Allergy Reaction LATEX 03/17/2021 14 - Other: See Comments PENICILLINS 07/04/2014 2 - Rash 4 - Hives Date Reviewed: 02/01/2025 Reviewed by: Radhika Simon LPN - Fully Assessed Reason for Visit: Sore Throat [200] Cmt: Body ac (more content not included)... Normal [facility] STREP A MOLECULAR (POC)on Procedural Control Valid [facility] Strep A (POCT) Negative Negative [facility] NELL BY IFA SCREEN [CCL]on NELL Titer 1:80 Normal [facility] Comment on above: Performed By: #### 2 96947 #### [facility],[address] [place] [address] Nuclear Ab IF (S) [Titer] Positive Abnormal Negative [facility] Comment on above: Result Comment: Anti -nuclear antibody test is used as an aid in diagnosis of systemic autoimmune diseases. Where positive and clinically warranted, follow-up using disease-specific testing is recommended. Low positive titers are not uncommon with advanced age, certain chronic infections, and malignancies among others. Test methodology: Indirect fluorescence immunoassay (IFA) using HEp-2 cells. Performed By: #### 2 57348 #### [address] [address] RHEUMATOID FACTOR [CCL]on Rheumatoid Factor <10 Normal <16 [facility] Comment on above: Result Comment: [place] [id number] [place] Ybarra III, M.D. [id number] Performed By: #### 2 84919 #### [address] [address] T3, FREE [CCL]on 10-30-2024 Free T3 [Mass/Vol] 3.3 pg/mL Normal 2.3-4.1 [facility] Comment on above: Result Comment: [place] [id number] [place] Ybarra III, M.D. [id number] Performed By: #### 2 43226 #### [address] [address] NELL BY IFA SCREENon 10-28-19 25 Nuclear Ab pattern (S) [Interp] Nuclear homogeneous Normal [facility] Comment on above: Order Comment: Specfallon cottrell Type: BLOOD SPECIMEN Ordering Facility: [facility] Address: [address] [place] [address] Performed By: #### 1 1572-5, 305-0, ANAIFS #### [facility] CLIA [id number] [address] [place] [address] STATES OF [facility] Nuclear Ab Ql (S) Positive Abnormal Negative [facility] Comment on above: Order Comment: Specfallon cottrell Type: BLOOD SPECIMEN Ordering Facility: [facility] Address: [address] [place] [address] Result Comment: Anti -nuclear antibody test is used as an aid in diagnosis of systemic autoimmune diseases. Where positive and clinically warranted, follow-up using disease-specific testing is recommended. Low positive titers are not uncommon with advanced age, certain chronic infections, and malignancies among others. Test methodology: Indirect fluorescence immunoassay (IFA) using HEp-2 cells. 1:80 Performed By: #### 1 1572-5, 3051-0, ANAIFS #### [facility] CLIA [id number] [address] [place] [address] [place] C-REACTIVE PROTEINon 025 CRP 1.44 mg/dl High 0.00 - 0.90 [facility] Comment on above: Performed By: #### 2 48913 #### [facility],[address] [place] [address] CBC + DIFFon 10-28-2024 Baso # 0.01 x10EE3/UL Normal 0.00 - 0.10 [facility] Comment on above: Performed By: #### 2 39884 #### [facility],[address] [place] [address] Basophils/100 WBC (Bld) 0.4 % Normal 0.0 - 2.0 [facility] Comment on above: Performed By: #### 2 52629 #### [facility],[address] [place] [address] CBC + DIFF Normal [facility] Comment on above: Result Comment: CBC- COMPLETE BLOOD COUNT Performed By: #### 2 30468 #### [facility],[address] [place] [address] EO # 0.16 x10EE3/UL Normal 0.00 - 0.50 [facility] Comment on above: Performed By: #### 2 88602 #### [facility],[address] [place] [address] Eosinophils/100 WBC (Bld) 4.5 % Normal 0.0 - 7.0 [facility] Comment on above: Performed By: #### 2 66893 #### [facility],[address] [place] [address] Erythrocyte distribution width (RBC) [Ratio] 12.9 % Normal 12.0 - 15.6 [facility] Comment on above: Performed By: #### 2 50546 #### [facility],[address] [place] [address] Hematocrit (Bld) [Volume fraction] 41.3 % Normal 34.0 - 46.0 [facility] Comment on above: Performed By: #### 2 49794 #### [facility],[address] [place] [address] Hemoglobin (Bld) [Mass/Vol] 14.3 g/dL Normal 12.0 - 16.0 [facility] Comment on above: Performed By: #### 2 73883 #### [facility],[address] [place] [address] Lymph # 1.11 x10EE3/UL Normal 0.80 - 2.80 [facility] Comment on above: Performed By: #### 2 30032 #### [place] [address] Lymphocytes/100 WBC (Bld) 30.6 % Normal 20.0 - 45.0 [facility] Comment on above: Performed By: #### 2 65471 #### [facility],[address] [place] [address] MANUAL DIFF N/A Normal [facility] Comment on above: Performed By: #### 2 35228 #### [place] [address] MCH (RBC) [Entitic mass] 32 pg Normal 27 - 33 [facility] Comment on above: Performed By: #### 2 54483 #### [place] [address] MCHC 35 X10 3 Normal 32 - 36 [facility] Comment on above: Performed By: #### 2 01261 #### [place] [address] MCV (RBC) [Entitic vol] 91 fL Normal 80 - 99 [facility] Comment on above: Performed By: #### 2 87003 #### [place] [address] [place] # 0.21 x10EE3/UL Normal 0.20 - 1.00 [facility] Comment on above: Performed By: #### 2 44520 #### [facility],[address] [place] [address] MONOS % 5.7 % Normal 0.0 - 10.0 [facility] Comment on above: Performed By: #### 2 65865 #### [facility],[address] [place] [address] Morphology Giovanni (Bld) [Interp] N/A Normal [facility] Comment on above: Performed By: #### 2 15334 #### [facility],[address] [place] [address] Neut # 2.14 x10EE3/UL Normal 1.50 - 7.10 [facility] Comment on above: Performed By: #### 2 05150 #### [facility],[address] [place] [address] Neutrophils/100 WBC (Bld) 58.9 % Normal 46.0 - 76.0 [facility] Comment on above: Performed By: #### 2 20825 #### [facility],[address] [place] [address] PLATELET 134 x10EE3/UL Low 150 - 450 [facility] Comment on above: Performed By: #### 2 58151 #### [facility],[address] [place] [address] Platelet mean volume (Bld) [Entitic vol] 9.0 fL Normal 6.6 - 10.5 [facility] Comment on above: Result Comment: AUTO MATED DIFFERENTIAL Performed By: #### 2 78202 #### [place] [id number] RBC 4.52 x 10EE6/UL Normal 4.10 - 5.30 [facility] Comment on above: Performed By: #### 2 66307 #### [facility],[address] [place] [address] WBC 3.6 x 10EE3/UL Low 4.5 - 10.8 [facility] Comment on above: Performed By: #### 2 21259 #### [facility],[address] [place] [address] CMP with eGFRon 10-28-2024 AGE 33 years Normal [facility] Comment on above: Performed By: #### 2 84071 #### [facility],[address] [place] [address] Albumin [Mass/Vol] 3.8 g/dL Normal 3.4 - 5.0 [facility] Comment on above: Performed By: #### 2 26747 #### [facility],[address] [place] [address] Albumin/Globulin [Mass ratio] 1.0 {ratio} Normal 0.9 - 1.6 [facility] Comment on above: Performed By: #### 2 43059 #### [facility],[address] [place] [address] ALK PHOS 61 U/L Normal 46 - 116 [facility] Comment on above: Performed By: #### 2 33439 #### [facility],[address] [place] [address] ALT [Catalytic activity/Vol] 19 U/L Normal 16 - 63 [facility] Comment on above: Performed By: #### 2 36070 #### [facility],[address] [place] [address] Anion gap [Moles/Vol] 10 mmol/L Normal 10 - 20 [facility] Comment on above: Performed By: #### 2 01115 #### [facility],[address] [place] [address] AST [Catalytic activity/Vol] 17 U/L Normal 13 - 39 [facility] Comment on above: Performed By: #### 2 18475 #### [facility],[address] [place] [address] B/C RATIO 11 ratio Normal 0 - 30 [facility] Comment on above: Performed By: #### 2 03244 #### [facility],[address] [place] [address] Bilirubin [Mass/Vol] 0.3 mg/dL Normal 0.2 - 1.0 [facility] Comment on above: Performed By: #### 2 73187 #### [facility],[address] [place] [address] Calcium [Mass/Vol] 9.1 mg/dL Normal 8.5 - 10.1 [facility] Comment on above: Performed By: #### 2 01096 #### [facility],[address] [place] [address] Chloride [Moles/Vol] 106 mmol/L Normal 98 - 107 [facility] Comment on above: Performed By: #### 2 76077 #### [facility],[address] [place] [address] CMP with eGFR Normal [facility] Comment on above: Result Comment: COMP REHENSIVE METABOLIC PANEL Performed By: #### 2 79341 #### [facility],[address] [place] [address] CO2 [Moles/Vol] 29.4 mmol/L Normal 21.0 - 32.0 [facility] Comment on above: Performed By: #### 2 35670 #### [facility],[address] [place], [place] [address] Creatinine [Mass/Vol] 0.70 mg/dL Normal 0.55 - 1.02 [facility] Comment on above: Performed By: #### 2 33065 #### [facility],[address] [place] [address] GFR/1.73 sq M.predicted among non-blacks MDRD (S/P/Bld) [Vol rate/Area] mL/min/{1.73_m2} Normal 60 - 999 [facility] Comment on above: Performed By: #### 2 22740 #### [facility],[address] [place] [address] Result Comment: ACCO RDING TO THE NATIONAL KIDNEY DISEASE EDUCATION PROGRAM(NKDE), A NORMAL eGFR IS A VALUE GREATER THAN OR EQUAL TO 60 ML/MIN/1.73 SQ METERS. CHRONIC KIDNEY DISEASE: <60mL/MIN/1.73 SQ METERS KIDNEY FAILURE: <15mL/MIN/1.73 SQ METERS THIS TEST SHOULD ONLY BE USED FOR PATIENTS 18 YEARS OF AGE AND OLDER. Globulin (S) [Mass/Vol] 3.9 g/dL High 1.5 - 3.8 [facility] Comment on above: Performed By: #### 2 27447 #### [facility],[address] [place] [address] Glucose [Mass/Vol] 86 mg/dL Normal 74 - 106 [facility] Comment on above: Performed By: #### 2 27970 #### [facility],[address] [place] [address] Potassium [Moles/Vol] 4.3 mmol/L Normal 3.5 - 5.1 [facility] Comment on above: Performed By: #### 2 65017 #### [facility],[address] [place] [address] 30068 Protein [Mass/Vol] 7.7 g/dL Normal 6.4 - 8.2 [facility] Comment on above: Performed By: #### 2 52876 #### [facility],[address] [place] [address] Sodium [Moles/Vol] 141 mmol/L Normal 136 - 145 [facility] Comment on above: Performed By: #### 2 32875 #### [facility],[address] [place] [address] Urea nitrogen [Mass/Vol] 8 mg/dL Normal 7 - 18 [facility] Comment on above: Performed By: #### 2 10275 #### [facility],[address] [place] [address] Rheumatoid fact SerPl-aCncon 10-28-2024 Rheumatoid factor Qn [IU]/mL Normal <16 [facility] Comment on above: Order Comment: Speci men Type: BLOOD SPECIMEN Ordering Facility: [facility] Address: [address] [place] [address] Performed By: #### 1 1572-5, 0, JESUS #### [facility] CLIA [id number] [address] [place] [address] [place] SEDRATEon 10-28-2024 SEDRATE 10 mm/hr Normal 0 - 30 [facility] Comment on above: Performed By: #### 2 45537 #### [facility],[address] [place] [address] T3Free SerPl-mCncon 10-28-19 25 Free T3 [Mass/Vol] 3.3 pg/mL Normal 2.3-4.1 [facility] Comment on above: Order Comment: Speci men Type: BLOOD SPECIMEN Ordering Facility: [facility] Address: [address] [place] [address] Performed By: #### 1 1572-5, , JESUS #### [facility] CLIA [id number] [address] [place] [address] [place] T4-FREE (FREE THYROXINE)on 0 10-28-2024 Free T4 [Mass/Vol] 0.78 ng/dL Normal 0.76 - 1.46 [facility] Comment on above: Result Comment: P otential of falsely elevated results when biotin concentrations are > 10 ng/mL. Performed By: #### 2 57077 #### [facility],[address] [place] [address] TSHon 10-28-2024 TSH Qn 1.34 m[IU]/L Normal 0.35 - 3.74 [facility] Comment on above: Performed By: #### 2 07633 #### [facility],[address] [place] [address] 11894 VITAMIN D, 25 HYDROXYon 10-02 VitD 26.40 ng/mL Low 30.00 - 100 [facility] Comment on above: Result Comment: 25-O HD3 indicates both endogenous production and supplementation. 25-OHD2 is an indicator of exogenous sources, such as diet or supplementation. Therapy is based on measurement of Total 25-OHD, with levels <20 ng/mL indicative of Vitamin D deficiency, while levels between 20 ng/mL and 30 ng/mL suggest insufficiency. Optimal levels are >=30ng/mL. Vitamin D, 25-OH D3 Not Established Vitamin D, 25-OH D2 Not Established Performed By: #### 2 65592 #### [facility],[address] [place] [address] PAP IG HPV APTIMA 16/18,45on 09-02-2024 ADEQ Comment Normal . [facility] Comment on above: Order Comment: Speci men Comment: [id number] Comment: Source.............EndocervixSpecimen Comment: No. of containers..01 ThinPrep Vial Result Comment: Sati sfactory for evaluation. Endocervical and/or squamous metaplasticcells (endocervical component) are present. Performed By: #### L 7400.0280, M100.3199, ####[facility] [address] [place], [place], [address] COMM . Normal . [facility] Comment on above: Order Comment: Speci men Comment: [id number] Comment: Source.............EndocervixSpecimen Comment: No. of containers..01 ThinPrep Vial Performed By: #### L 7400.0280, M100.3200, M1 ####[facility] [address] [place], [address] COMMENT Comment Normal . [facility] Comment on above: Order Comment: Speci men Comment: [id number] Comment: Source.............EndocervixSpecimen Comment: No. of containers..01 ThinPrep Vial Result Comment: This liquid based ThinPrep(R) pap test was screened withthe use of an image guided system. Performed By: #### L 7400.0280, M100.3200, M1 ####[facility] [address] [place], [address] DIAG Comment Normal . [facility] Comment on above: Order Comment: Speci men Comment: [id number] Comment: Source.............EndocervixSpecimen Comment: No. of containers..01 ThinPrep Vial Result Comment: NEGA TIVE FOR INTRAEPITHELIAL LESION OR MALIGNANCY.THIS SPECIMEN WAS RESCREENED PART OF OUR ANCHORER PROGRAM. Performed By: #### L 7400.0280, M100.3200, ####[facility] [address] [place], [address] HPV APTIMA, HR Negative Normal Negative [facility] Comment on above: Order Comment: Speci men Comment: [id number] Comment: Source.............EndocervixSpecimen Comment: No. of containers..01 ThinPrep Vial Result Comment: This nucleic acid amplification test detects fourteen high-risk HPV types (16,18,31,33,35,39,45,51,52,56,58,59,66,68)without differentiation. Performed By: #### L 7400.0280, M100.3200, M1.1999 ####[facility] [address] [place], [address] HPV Karen Rfx Comment Normal . [facility] Comment on above: Order Comment: Speci men Comment: [id number] Comment: Source.............EndocervixSpecimen Comment: No. of containers..01 ThinPrep Vial Result Comment: Crit amie not met, HPV Genotype not performed.Performed at: - [facility] [address] [id number] Director: Shilpi Geller MD, Phone: [phone] at: = - [facility] [address], [place] [id number] Director: Shilpi Geller MD, Phone: [phone] Performed By: #### L 7400.0280, M100.3200, ####[facility] [address] [place], [place], [id number] PAPSMR Comment Normal . [facility] Comment on above: Order Comment: Speci men Comment: [id number] Comment: Source.............EndocervixSpecimen Comment: No. of containers..01 ThinPrep Vial Result Comment: The Pap smear is a screening test designed to aid in thedetection of premalignant and malignant conditions of theuterine cervix. It is not a diagnostic procedure andshould not be used as the sole means of detecting cervicalcancer. Both false-positive and false-negative reports dooccur. Performed By: #### L 7400.0280, M100.3200, ####[facility] [address] [place], [place], [address] PERFORM Comment Normal . [facility] Comment on above: Order Comment: Speci men Comment: [id number] Comment: Source.............EndocervixSpecimen Comment: No. of containers..01 ThinPrep Vial Result Comment: Maritza Fan, Wrapper Sorter (ASCP) Performed By: #### L 7400.0280, M100.3200, M1.1999 ####[facility] [address] [place], [address] QC REV Comment Normal . [facility] Comment on above: Order Comment: Speci men Comment: [id number] Comment: Source.............EndocervixSpecimen Comment: No. of containers..01 ThinPrep Vial Result Comment: Yanique Vazquez, Wrapper Sorter (ASCP) Performed By: #### L 7400.0280, M100.3200, M1 ####[facility] [address] [place], [address] Genital Culture Comprehensiv sanchez 08-25-2024 VAC Normal vaginal rosy isolated. No yeast, Gardnerella, Neisseria or beta-hemolytic Streptococcus isolated. Presumptive C albicans Amount Growth Rare Normal [facility] Comment on above: Performed By: #### L 7400.0280, M100.3200, ####[facility] [address] [place], [address] Gram Stainon 08-22-2024 GS Gram Stain 3+ Gram positive rods 3+ White Blood Cells No Gram negative diplococci Score = 1 Interpretation: 0-3 Normal, 4-6 Intermediate, 7-10 Positive BV Normal [facility] Comment on above: Performed By: #### L 7400.0280, M100.3200, M1 ####[facility] [address] [place], [address] Lithography Contact Worker Office Visit Reporton 08-22-2024 Lithography Contact Worker Office Visit Report Normal [facility] Culture, Blood (WB)on 2023 CUB Blood cultures x2 from two different sites No growth in 5 days. Normal [facility] Comment on above: Performed By: #### M 200.1000 ####[facility] [address] [place], [address] Abdomen/Pelvis W IV Cont ONL Yon 07-24-2024 Abdomen/Pelvis W IV Cont ONLY Normal [facility] CBC W/Diff, Automatedon 10- Absolute Lymph 0.38 X10 3/uL Low 0.83-4.51 [facility] Comment on above: Performed By: #### L 700.6800, L500.4050, L100.0100 ####[facility] [address] [place], [address] Absolute Neut 2.4 X10 3/uL Normal 2.0-7.7 [facility] Comment on above: Performed By: #### L 700.6800, L500.4050, L100.0100 ####[facility] [address] [place], [address] Basophils/100 WBC (Bld) 0.0 % Normal 0-1 [facility] Comment on above: Performed By: #### L 700.6800, L500.4050, L100.0100 ####[facility] [address] [place], [address] Eosinophils/100 WBC (Bld) 2.5 % Normal 0-5 [facility] Comment on above: Performed By: #### L 700.6800, L500.4050, L100.0100 ####[facility] [address] [place], [address] Erythrocyte distribution width (RBC) [Ratio] 13.4 % Normal 11.6-14.6 [facility] Comment on above: Performed By: #### L 700.6800, L500.4050, L100.0100 ####[facility] [address] [place], [address] Hematocrit (Bld) [Volume fraction] 37.3 % Normal 37-47 [facility] Comment on above: Performed By: #### L 700.6800, L500.4050, L100.0100 ####[facility] [address] [place], [address] Hemoglobin (Bld) [Mass/Vol] 12.0 g/dL Normal 12.0-15.0 [facility] Comment on above: Performed By: #### L 700.6800, L500.4050, L100.0100 ####[facility] [address] [place], [address] IG% 0.000 Normal 0.0-0.9 [facility] Comment on above: Result Comment: IG% - Immature Granulocytes (promyelocytes, myelocytes andmetamyelocytes) > 1% indicates that a LEFT SHIFT is Present. Performed By: #### L 700.6800, L500.4050, L100.0100 ####[facility] [address] [place], [address] Lymphocytes/100 WBC (Bld) 11.9 % Low 19-41 [facility] Comment on above: Performed By: #### L 700.6800, L500.4050, L100.0100 ####[facility] [address] [place], [address] MCH (RBC) [Entitic mass] 29.1 pg Normal 27.0-32.0 [facility] Comment on above: Performed By: #### L 700.6800, L500.4050, L100.0100 ####[facility] [address] [place], [address] MCHC (RBC) [Mass/Vol] 32.2 g/dL Normal 32-36 [facility] Comment on above: Performed By: #### L 700.6800, L500.4050, L100.0100 ####[facility] [address] [place], [address] MCV (RBC) [Entitic vol] 90.5 fL Normal 81-99 [facility] Comment on above: Performed By: #### L 700.6800, L500.4050, L100.0100 ####[facility] [address] [place], [address] Monocytes/100 WBC (Bld) 9.4 % Normal 0-10 [facility] Comment on above: Performed By: #### L 700.6800, L500.4050, L100.0100 ####[facility] [address] [place], [address] Neutrophils/100 WBC (Bld) 76.2 % High 47-70 [facility] Comment on above: Performed By: #### L 700.6800, L500.4050, L100.0100 ####[facility] [address] [place], [address] Nucleated RBC (Bld) [#/Vol] 0 10*3/uL Normal 0-5 [facility] Comment on above: Performed By: #### L 700.6800, L500.4050, L100.0100 ####[facility] [address] [place], [address] Platelet mean volume (Bld) [Entitic vol] 10.0 fL Normal 6.2-12.0 [facility] Comment on above: Performed By: #### L 700.6800, L500.4050, L100.0100 ####[facility] [address] [place], [address] Platelets (Bld) [#/Vol] 158 10*3/uL Normal 150-450 [facility] Comment on above: Performed By: #### L 700.6800, L500.4050, L100.0100 ####[facility] [address] [place], [address] RBC (Bld) [#/Vol] 4.12 10*6/uL Low 4.2-5.4 [facility] Comment on above: Performed By: #### L 700.6800, L500.4050, L100.0100 ####[facility] [address] [place], [address] RDW SD 44.5 fl High 35.1-43.9 [facility] Comment on above: Performed By: #### L 700.6800, L500.4050, L100.0100 ####[facility] [address] [place], [address] WBC (Bld) [#/Vol] 3.2 10*3/uL Low 4.4-11.0 [facility] Comment on above: Performed By: #### L 700.6800, L500.4050, L100.0100 ####[facility] [address] [place], [address] CDIFF (PCR)on 07-24-2024 CDIFF Pending [phone] NAP1-B1 Presumptive Negative *for epidemiolologic???us e C. Diff PCR Negative- No toxigenic C. Diff Detected Normal [facility] Comment on above: Performed By: #### M 100.0605, M100.637, M100.6796 ####[facility] [address] [place], [address] Comprehensive Metabolic Prof ilon 07-24-2024 Albumin [Mass/Vol] 3.2 g/dL Normal 3.2-5.0 [facility] Comment on above: Performed By: #### L 700.6800, L500.4050, L100.0100 ####[facility] [address] [place], [address] Albumin/Globulin [Mass ratio] 0.9 {ratio} Normal 0.9-2.4 [facility] Comment on above: Performed By: #### L 700.6800, L500.4050, L100.0100 ####[facility] [address] [place], [address] ALK P 75 U/L Normal 45-117 [facility] Comment on above: Performed By: #### L 700.6800, L500.4050, L100.0100 ####[facility] [address] [place], [address] ALT [Catalytic activity/Vol] 45 U/L Normal 13-56 [facility] Comment on above: Performed By: #### L 700.6800, L500.4050, L100.0100 ####[facility] [address] [place], [address] AST [Catalytic activity/Vol] 33 U/L Normal 15-37 [facility] Comment on above: Performed By: #### L 700.6800, L500.4050, L100.0100 ####[facility] [address] [place], [address] Bilirubin [Mass/Vol] 0.40 mg/dL Normal 0.20-1.00 [facility] Comment on above: Result Comment: For patients on eltrombopag therapy, use of Dimension [place] TBIL is not recommended. Performed By: #### L 700.6800, L500.4050, L100.0100 ####[facility] [address] [place], [address] BUN/CRE 22.0 RATIO High 10-20 [facility] Comment on above: Performed By: #### L 700.6800, L500.4050, L100.0100 ####[facility] [address] [place], [address] CA,Total 8.8 mg/dL Normal 8.5-10.1 [facility] Comment on above: Performed By: #### L 700.6800, L500.4050, L100.0100 ####[facility] [address] [place], [address] Chloride [Moles/Vol] 111 mmol/L High 98-107 [facility] Comment on above: Performed By: #### L 700.6800, L500.4050, L100.0100 ####[facility] [address] [place], [address] CO2 [Moles/Vol] 22.0 mmol/L Normal 21.0-32.0 [facility] Comment on above: Performed By: #### L 700.6800, L500.4050, L100.0100 ####[facility] [address] [place], [address] Creatinine [Mass/Vol] 0.55 mg/dL Normal 0.55-1.02 [facility] Comment on above: Result Comment: The validity of the calculated GFR GFRAA in patients over70 years has not been determined. Clinical correlation isessential. Performed By: #### L 700.6800, L500.4050, L100.0100 ####[facility] [address] [place], [address] ECRCL 175.48 ml/min Normal [facility] Comment on above: Performed By: #### L 700.6800, L500.4050, L100.0100 ####[facility] [address] [place], [address] EST GFR - AA 165 mL/min Normal >60 [facility] Comment on above: Result Comment: Afri can Somali GFR Calc Performed By: #### L 700.6800, L500.4050, L100.0100 ####[facility] [address] [place], [address] GAP 6 Normal 5-15 [facility] Comment on above: Performed By: #### L 700.6800, L500.4050, L100.0100 ####[facility] [address] [place], [address] GFR/1.73 sq M.predicted among non-blacks MDRD (S/P/Bld) [Vol rate/Area] 137 mL/min/{1.73_m2} Normal >60 [facility] Comment on above: Result Comment: Non- GFR Calc Performed By: #### L 700.6800, L500.4050, L100.0100 ####[facility] [address], [address] Globulin (S) [Mass/Vol] 3.7 g/dL Normal 2.2-4.2 [facility] Comment on above: Performed By: #### L 700.6800, L500.4050, L100.0100 ####[facility] [address] [place], [address] Glucose [Mass/Vol] 95 mg/dL Normal 74-106 [facility] Comment on above: Performed By: #### L 700.6800, L500.4050, L100.0100 ####[facility] [address] [place], [address] Potassium [Moles/Vol] 4.0 mmol/L Normal 3.5-5.1 [facility] Comment on above: Performed By: #### L 700.6800, L500.4050, L100.0100 ####[facility] [address] [place], [address] Sodium [Moles/Vol] 139 mmol/L Normal 136-145 [facility] Comment on above: Performed By: #### L 700.6800, L500.4050, L100.0100 ####[facility] [address] [place], [address] T PROT 6.9 g/dL Normal 6.4-8.2 [facility] Comment on above: Performed By: #### L 700.6800, L500.4050, L100.0100 ####[facility] [address] [place], [address] Urea nitrogen [Mass/Vol] 12 mg/dL Normal 7-18 [facility] Comment on above: Performed By: #### L 700.6800, L500.4050, L100.0100 ####[facility] [address] [place], [address] ENTERIC PATHOGEN PANEL STOOL on 07-24-2024 EP PANEL CAMPYLOBACTER Not Detected Norovirus Not Detected Rotavirus Not Detected Salmonella Not Detected Shiga Toxin Not Detected Shigella sp. Not Detected VIBRIO Not Detected Yersinia Not Detected Normal [facility] Comment on above: Performed By: #### M 100.0605, M100.637, M100.6796 ####[facility] [address] [place], [address] Emergency Department Summary on 07-24-2024 Emergency Department Summary Normal [facility] ,Serum,hCG Quali.on 07-24-2024 HCG, SERUM QUAL Negative Normal [facility] Comment on above: Performed By: #### L 700.6800, L500.4050, L100.0100 ####[facility] [address] [place], [address] Stool Lactoferrin/WBCon 07-02 WBCST Normal Reference Range = Negative Fecal WBC Lactoferrin A Positive: Fecal WBC Lactoferrin present A Normal [facility] Comment on above: Performed By: #### M 100.0605, M100.637, M100.6796 ####[facility] [address] [place], [address] Urinalysis, Completeon 07-24 BACTERIA RARE Normal None Seen [facility] Comment on above: Order Comment: JERED CTOR TO SPECIFY Performed By: #### L 400.0001 ####[facility] [address] [place], [address] EPI,SQUAMOUS 5-10 SEEN Normal 5-10 [facility] Comment on above: Order Comment: COLLE CTOR TO SPECIFY Performed By: #### L 400.0001 ####[facility] [address] [place], [address] RBC 0-5 SEEN Normal 0-5 [facility] Comment on above: Order Comment: COLLE CTOR TO SPECIFY Performed By: #### L 400.0001 ####[facility] [address] [place], [address] WBC 5-10 SEEN Normal 0-5 [facility] Comment on above: Order Comment: COLLE CTOR TO SPECIFY Performed By: #### L 400.0001 ####[facility] [address] [place], [address] Mucus Ql (Urine sed) 0 SEEN Normal [facility] Comment on above: Order Comment: [facility] CTOR TO SPECIFY Performed By: #### L 400.0001 ####[facility] [address] [place], [place], [address] CNOVon 07-23-2024 [facility] WILLIS GAUTAM ([id number]) 1990 F Date Time Provider Department 07/23/24 3:15 PM MIKE MCCARTHY [facility] During your visit today, we recorded the following information about you: Temperature Pulse Respiration Blood pressure 99.7 degrees 102/minute 18/minute 102/64 Weight 93.3 kg Mike Mccarthy APRN.CNP 07/23/2024 3:26 PM Signed How to Manage Common Symptoms Associated with [...] hydrated. Gargle with salt water - mix ? teaspoon salt with 1 cup of warm water and gargle. This helps to loosen mucus in the back of the throat and may reduce discomfort. Try ice chips, popsicles or lozenges to soothe the throat. Nausea/Vomiting/Diar willard- These are common symptoms, and staying hydrated [...] that are severe or concerning to you. Mike Mccarthy, RIC.GLAZE CARRIER 07/23/2024 3:41 PM Signed Subjective HPI Nontoxic-appearing female presents to urgent care requesting COVID-19 testing. Patient states developed body aches chills fatigue yesterday. She is currently being treated for uterine infection by [employer]. Currently on a meropenem. Daughter sick earlier [...] PAST SURGICAL HISTORY Procedure Laterality Date EXTRACTION, ERUPT (more content not included)... Normal [facility] COVID AND INFLUENZA A/B AND RSV PCR, ROUTINEon 07-23-2024 SARS-CoV-2 (COVID-19) RNA SONA+probe Ql (Unsp spec) SARS-COV-2 (AGENT OF COVID-19) RNA: Not detected INFLUENZA A RNA: Not detected INFLUENZA B RNA: Not detected RESPIRATORY SYNCYTIAL VIRUS (RSV) RNA: Not detected Normal [facility] Comment on above: Performed By: #### C VFLRS #### [facility] CLIA [id number] [address] [place] [address] [place] Genital Culture Comprehensiv sanchez 07-22-2024 VAC Normal [facility] Comment on above: Performed By: #### M 100.3200, M100.2000 ####[facility] [address] [place], [address] CBC W/Diff, Automatedon 10- Absolute Lymph 1.52 X10 3/uL Normal 0.83-4.51 [facility] Comment on above: Performed By: #### L 500.4050, L100.0100 ####[facility] [address] [place], [address] Absolute Neut 3.2 X10 3/uL Normal 2.0-7.7 [facility] Comment on above: Performed By: #### L 500.4050, L100.0100 ####[facility] [address] [place], [address] Basophils/100 WBC (Bld) 0.2 % Normal 0-1 [facility] Comment on above: Performed By: #### L 500.4050, L100.0100 ####[facility] [address] [place], [address] Eosinophils/100 WBC (Bld) 2.3 % Normal 0-5 [facility] Comment on above: Performed By: #### L 500.4050, L100.0100 ####[facility] [address] [place], [address] Erythrocyte distribution width (RBC) [Ratio] 13.4 % Normal 11.6-14.6 [facility] Comment on above: Performed By: #### L 500.4050, L100.0100 ####[facility] [address] [place], [address] Hematocrit (Bld) [Volume fraction] 38.5 % Normal 37-47 [facility] Comment on above: Performed By: #### L 500.4050, L100.0100 ####[facility] [address] [place], [address] Hemoglobin (Bld) [Mass/Vol] 12.2 g/dL Normal 12.0-15.0 [facility] Comment on above: Performed By: #### L 500.4050, L100.0100 ####[facility] [address] [place], [address] IG% 0.200 Normal 0.0-0.9 [facility] Comment on above: Result Comment: IG% - Immature Granulocytes (promyelocytes, myelocytes andmetamyelocytes) > 1% indicates that a LEFT SHIFT is Present. Performed By: #### L 500.4050, L100.0100 ####[facility] [address] [place], [address] Lymphocytes/100 WBC (Bld) 29.7 % Normal 19-41 [facility] Comment on above: Performed By: #### L 500.4050, L100.0100 ####[facility] [address] [place], [address] MCH (RBC) [Entitic mass] 28.6 pg Normal 27.0-32.0 [facility] Comment on above: Performed By: #### L 500.4050, L100.0100 ####[facility] [address] [place], [address] MCHC (RBC) [Mass/Vol] 31.7 g/dL Low 32-36 [facility] Comment on above: Performed By: #### L 500.4050, L100.0100 ####[facility] [address] [place], [address] MCV (RBC) [Entitic vol] 90.4 fL Normal 81-99 [facility] Comment on above: Performed By: #### L 500.4050, L100.0100 ####[facility] [address] [place], [address] Monocytes/100 WBC (Bld) 5.1 % Normal 0-10 [facility] Comment on above: Performed By: #### L 500.4050, L100.0100 ####[facility] [address] [place], [address] Neutrophils/100 WBC (Bld) 62.5 % Normal 47-70 [facility] Comment on above: Performed By: #### L 500.4050, L100.0100 ####[facility] [address] [place], [address] Nucleated RBC (Bld) [#/Vol] 0 10*3/uL Normal 0-5 [facility] Comment on above: Performed By: #### L 500.4050, L100.0100 ####[facility] [address] [place], [address] Platelet mean volume (Bld) [Entitic vol] 10.0 fL Normal 6.2-12.0 [facility] Comment on above: Performed By: #### L 500.4050, L100.0100 ####[facility] [address] [place], [address] Platelets (Bld) [#/Vol] 253 10*3/uL Normal 150-450 [facility] Comment on above: Performed By: #### L 500.4050, L100.0100 ####[facility] [address] [place], [address] RBC (Bld) [#/Vol] 4.26 10*6/uL Normal 4.2-5.4 [facility] Comment on above: Performed By: #### L 500.4050, L100.0100 ####[facility] [address] [place], [address] RDW SD 44.4 fl High 35.1-43.9 [facility] Comment on above: Performed By: #### L 500.4050, L100.0100 ####[facility] [address] [place], [address] WBC (Bld) [#/Vol] 5.1 10*3/uL Normal 4.4-11.0 [facility] Comment on above: Performed By: #### L 500.4050, L100.0100 ####[facility] [address] [place], [address] Comprehensive Metabolic Prof ilon 07-21-2024 Albumin [Mass/Vol] 3.7 g/dL Normal 3.2-5.0 [facility] Comment on above: Performed By: #### L 500.4050, L100.0100 ####[facility] [address] [place], [address] Albumin/Globulin [Mass ratio] 1.1 {ratio} Normal 0.9-2.4 [facility] Comment on above: Performed By: #### L 500.4050, L100.0100 ####[facility] [address] [place], [address] ALK P 83 U/L Normal 45-117 [facility] Comment on above: Performed By: #### L 500.4050, L100.0100 ####[facility] [address] [place], [address] ALT [Catalytic activity/Vol] 42 U/L Normal 13-56 [facility] Comment on above: Performed By: #### L 500.4050, L100.0100 ####[facility] [address] [place], [address] AST [Catalytic activity/Vol] 26 U/L Normal 15-37 [facility] Comment on above: Performed By: #### L 500.4050, L100.0100 ####[facility] [address] [place], [address] Bilirubin [Mass/Vol] 0.20 mg/dL Normal 0.20-1.00 [facility] Comment on above: Result Comment: For patients on eltrombopag therapy, use of Dimension [place] TBIL is not recommended. Performed By: #### L 500.4050, L100.0100 ####[facility] [address] [place], [address] BUN/CRE 24.8 RATIO High 10-20 [facility] Comment on above: Performed By: #### L 500.4050, L100.0100 ####[facility] [address] [place], [address] CA,Total 9.3 mg/dL Normal 8.5-10.1 [facility] Comment on above: Performed By: #### L 500.4050, L100.0100 ####[facility] [address] [place], [address] Chloride [Moles/Vol] 108 mmol/L High 98-107 [facility] Comment on above: Performed By: #### L 500.4050, L100.0100 ####[facility] [address] [place], [address] CO2 [Moles/Vol] 25.0 mmol/L Normal 21.0-32.0 [facility] Comment on above: Performed By: #### L 500.4050, L100.0100 ####[facility] [address] [place], [address] Creatinine [Mass/Vol] 0.60 mg/dL Normal 0.55-1.02 [facility] Comment on above: Result Comment: The validity of the calculated GFR GFRAA in patients over70 years has not been determined. Clinical correlation isessential. Performed By: #### L 500.4050, L100.0100 ####[facility] [address] [place], [address] EST GFR - AA 147 mL/min Normal >60 [facility] Comment on above: Result Comment: Afri can Somali GFR Calc Performed By: #### L 500.4050, L100.0100 ####[facility] [address] [place], [address] GAP 8 Normal 5-15 [facility] Comment on above: Performed By: #### L 500.4050, L100.0100 ####[facility] [address] [place], [address] GFR/1.73 sq M.predicted among non-blacks MDRD (S/P/Bld) [Vol rate/Area] 121 mL/min/{1.73_m2} Normal >60 [facility] Comment on above: Result Comment: Non- GFR Calc Performed By: #### L 500.4050, L100.0100 ####[facility] [address] [place], [address] Globulin (S) [Mass/Vol] 3.5 g/dL Normal 2.2-4.2 [facility] Comment on above: Performed By: #### L 500.4050, L100.0100 ####[facility] [address] [place], [address] Glucose [Mass/Vol] 91 mg/dL Normal 74-106 [facility] Comment on above: Performed By: #### L 500.4050, L100.0100 ####[facility] [address] [place], [address] Potassium [Moles/Vol] 4.0 mmol/L Normal 3.5-5.1 [facility] Comment on above: Performed By: #### L 500.4050, L100.0100 ####[facility] [address] [place], [address] Sodium [Moles/Vol] 142 mmol/L Normal 136-145 [facility] Comment on above: Performed By: #### L 500.4050, L100.0100 ####[facility] [address] [place], [address] T PROT 7.2 g/dL Normal 6.4-8.2 [facility] Comment on above: Performed By: #### L 500.4050, L100.0100 ####[facility] [address] [place], [address] Urea nitrogen [Mass/Vol] 15 mg/dL Normal 7-18 [facility] Comment on above: Performed By: #### L 500.4050, L100.0100 ####[facility] [address] [place], [address] Gram Stainon 07-14-2024 GS Reason for Exam: vaginal discharge Gram Stain 2+ White Blood Cells 2+ Gram negative rods 1+ Gram positive cocci No Gram negative diplococci Score = 4 Interpretation: 0-3 Normal, 4-6 Intermediate, 7-10 Positive BV Normal [facility] Comment on above: Performed By: #### M 100.3200, M100.2000 ####[facility] [address] [place], [address] Lithography Contact Worker Office Visit Reporton 07-14-2024 Lithography Contact Worker Office Visit Report Normal [facility] CBC W/Diff, Automatedon Absolute Lymph 1.41 X10 3/uL Normal 0.83-4.51 [facility] Comment on above: Performed By: #### L 100.0100 ####[facility] [address] [place], [address] Absolute Neut 3.5 X10 3/uL Normal 2.0-7.7 [facility] Comment on above: Performed By: #### L 100.0100 ####[facility] [address] [place], [address] Basophils/100 WBC (Bld) 0.2 % Normal 0-1 [facility] Comment on above: Performed By: #### L 100.0100 ####[facility] [address] [place], [address] Eosinophils/100 WBC (Bld) 0.9 % Normal 0-5 [facility] Comment on above: Performed By: #### L 100.0100 ####[facility] [address] [place], [address] Erythrocyte distribution width (RBC) [Ratio] 14.3 % Normal 11.6-14.6 [facility] Comment on above: Performed By: #### L 100.0100 ####[facility] [address] [place], [address] Hematocrit (Bld) [Volume fraction] 31.8 % Low 37-47 [facility] Comment on above: Performed By: #### L 100.0100 ####[facility] [address] [place], [address] Hemoglobin (Bld) [Mass/Vol] 10.2 g/dL Low 12.0-15.0 [facility] Comment on above: Performed By: #### L 100.0100 ####[facility] [address] [place], [address] IG% 0.400 Normal 0.0-0.9 [facility] Comment on above: Result Comment: IG% - Immature Granulocytes (promyelocytes, myelocytes andmetamyelocytes) > 1% indicates that a LEFT SHIFT is Present. Performed By: #### L 100.0100 ####[facility] [address] [place], [address] Lymphocytes/100 WBC (Bld) 26.6 % Normal 19-41 [facility] Comment on above: Performed By: #### L 100.0100 ####[facility] [address] [place], [address] [facility] (RBC) [Entitic mass] 29.4 pg Normal 27.0-32.0 [facility] Comment on above: Performed By: #### L 100.0100 ####[facility] [address] [place], [address] MCHC (RBC) [Mass/Vol] 32.1 g/dL Normal 32-36 [facility] Comment on above: Performed By: #### L 100.0100 ####[facility] [address] [place], [address] MCV (RBC) [Entitic vol] 91.6 fL Normal 81-99 [facility] Comment on above: Performed By: #### L 100.0100 ####[facility] [address] [place], [address] Monocytes/100 WBC (Bld) 6.6 % Normal 0-10 [facility] Comment on above: Performed By: #### L 100.0100 ####[facility] [address] [place], [address] Neutrophils/100 WBC (Bld) 65.3 % Normal 47-70 [facility] Comment on above: Performed By: #### L 100.0100 ####[facility] [address] [place], [address] Nucleated RBC (Bld) [#/Vol] 0 10*3/uL Normal 0-5 [facility] Comment on above: Performed By: #### L 100.0100 ####[facility] [address] [place], [address] Platelet mean volume (Bld) [Entitic vol] 10.9 fL Normal 6.2-12.0 [facility] Comment on above: Performed By: #### L 100.0100 ####[facility] [address] [place], [address] Platelets (Bld) [#/Vol] 165 10*3/uL Normal 150-450 [facility] Comment on above: Performed By: #### L 100.0100 ####[facility] [address] [place], [address] RBC (Bld) [#/Vol] 3.47 10*6/uL Low 4.2-5.4 [facility] Comment on above: Performed By: #### L 100.0100 ####[facility] [address] [place], [address] RDW SD 47.8 fl High 35.1-43.9 [facility] Comment on above: Performed By: #### L 100.0100 ####[facility] [address] [place], [address] WBC (Bld) [#/Vol] 5.3 10*3/uL Normal 4.4-11.0 [facility] Comment on above: Performed By: #### L 100.0100 ####[facility] [address] 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, [address] Operative Reporton Operative Report Normal [facility] Pathology Specimen OBon PATH. Spec OB SEE PATHOLOGY REPORT Normal [facility] Comment on above: Order Comment: Inter face Comments:Placenta to lab for studiesSend Results To: LabSend Specimen For (Specify): Studies @ [facility] Lab:RoutineTime of Procedure: 1423Date of Procedure: 07/01/24Reason specimen being sent to pathology (Hx/complications):twin gestationType of specimen: PlacentaType of procedure performed: Other Result Comment: Spec imen submitted to Anatomical Pathology Department fortesting. Performed By: #### L 350.1800 ####[facility] [address] [place], [address] Surgery Specimen Level Von 1 Surgery Specimen Level V Normal [facility] Comment on above: Performed By: #### P SUV ####[facility] [address] [place], [address] Type AND Screenon Ab SCREEN GEL TNP Normal [facility] Comment on above: Order Comment: R Performed By: #### B TS, [id number] ####[facility] [address] [place], [place], [address] Rule out Beta Strep (Grp. B) on 06-26-2024 ARMEN Group B Beta Streptococcus is not isolated. Normal [facility] Comment on above: Performed By: #### M 100.3400 ####[facility] [address] [place], [address] Lithography Contact Worker Office Visit Reporton 06-24-2024 Lithography Contact Worker Office Visit Report Normal [facility] OB Triage Physician Noteon 0 06-23-2024 OB Triage Physician Note Normal [facility] Lithography Contact Worker Office Visit Reporton 06-09-2024 Lithography Contact Worker Office Visit Report Normal [facility] Bacteria identified Cx Nom ( U)Ordered By: Faye Santana on 06-07-2024 Interpretation and review of laboratory results Normal [facility] [employer] [facility] Laboratory - Chemistry and C hemistry - challengeon 06-07-2024 Glucose [Mass/Vol] 125 mg/dL High 70 - 100 mg/dL [facility] Laboratory - Microbiology an d Antimicrobial susceptibilityOrdered By: Faye Santana on 06-07-2024 Bacteria identified Cx Nom (U) Normal urogenital rosy present [facility] No Panel Informationon 06-07 Interpretation and review of laboratory results Abnormal [facility] Performed by: [facility], [address] [place] [address], [place] [address] CLIA ID: [id number] [facility] Progress Noteon 06-07-2024 Progress Note Attestation signed by Lucinda Bar MD at 06/07/2024 11:02 AM MFM ATTENDING I have personally obtained a history and examined the patient with Dr. Syed. I agree with the assessment and plan as documented in the resident's note. The patient is a 33 y.o. 33w5d now HD#2, admitted for PTL Pertinent Background: [place] Di twin with normal growth and no complications. Presented via car to [facility] from [place] secondary to CTXs and PTL with cervix [...] care with care teams. Lucinda Bar MD Maternal Medicine Service Resident Progress Note 06/07/2024 [...] no calf tenderness or swelling Medications: Current Facility-Administere d Medications Medication Dose Route Frequency Provider Last [...] mg 4 mg Oral q8h PRN Pratima Schmegganeper, DO Or ondansetron (Zofran) injection 4 mg [...] for steroids, Procardia tocolysis, and GBS prophylaxis [place]/Di Twins - Last growth 05/12/24: Twin A [...] Repeat gr (more content not included)... Normal [facility] S. agalactiae DNA SONA+probe Ql (Unsp spec)on 06-07-2024 Group B Strep Screen Not detected Not Detected [facility] Interpretation and review of laboratory results Normal [facility] Methodology: real-time PCR [facility] A variant subtype Ab Qlon [facility] ABO and Rh group Confirm Nom (Bld)on 06-06-2024 ABO group Nom (Bld) O [facility] D Ag Ql (RBC) Negative [facility] h [facility] ABORh Blood Type, Patienton 06-06-2024 ABO and Rh group Nom (Bld) TNP Normal [facility] Comment on above: Performed By: #### B 64093-7, BtABORH, BTS ####[facility] [address] [place], [address] ANTIBODY IDENTIFICATIONon ANTIBODY IDENTIFICATION DPASSIVE Normal [facility] Comment on above: Performed By: #### L AB941, [id number] ####Gasoline Finisher: MODESTA KAMARA ([id number])[facility] ([facility])[address] [place] [address] BLOOD TYPE AND SCREEN GELon 06-06-2024 ABO GROUPING O Normal [facility] Comment on above: Performed By: #### L AB941, [id number] ####Gasoline Finisher: MODESTA KAMARA ([id number])[facility] ([facility])[address] [place] [address] RH TYPE IN BLOOD Negative Normal [facility] Comment on above: Performed By: #### L AB941, [id number] ####Gasoline Finisher: MODESTA KAMARA ([id number])[facility] ([facility])[address] [place] [address] Blood type and Crossmatch pa santiago (Bld)on 06-06-2024 ABO group Nom (Bld) O [facility] Blood group antibody screen GEL Ql Positive [facility] D Ag Ql (RBC) Negative [facility] CBC (HEMOGRAM)on 06-06-2024 Erythrocyte distribution width (RBC) [Ratio] 14.2 % Normal 11.5-15.0 [facility] Comment on above: Performed By: #### L AB294 ####Gasoline Finisher: MODESTA KAMARA ([id number])[facility])[address] [place] [address] Hematocrit (Bld) [Volume fraction] 34.2 % Low 35.0-47.0 [facility] Comment on above: Performed By: #### L AB294 ####Gasoline Finisher: MODESTA KAMARA ([id number])[address] Hemoglobin (Bld) [Mass/Vol] 11.0 g/dL Low 11.7-16.0 [facility] Comment on above: Performed By: #### L AB294 ####Gasoline Finisher: MODESTA KAMARA ([id number])[address] MCH (RBC) [Entitic mass] 29.3 pg Normal 26.0-34.0 [facility] Comment on above: Performed By: #### L AB294 ####Gasoline Finisher: MODESTA KAMARA ([id number])[address] MCHC 32.2 % Normal 30.5-36.0 [facility] Comment on above: Performed By: #### L AB294 ####Gasoline Finisher: MODESTA KAMARA ([id number])[facility])[address] [place] [address] MCV (RBC) [Entitic vol] 91.0 fL Normal 77.0-99.0 [facility] Comment on above: Performed By: #### L AB294 ####Gasoline Finisher: MODESTA KAMARA ([id number])[facility])[address] [place] [address] Platelet mean volume (Bld) [Entitic vol] 11.4 fL Normal 9.0-12.7 [facility] Comment on above: Performed By: #### L AB294 ####Gasoline Finisher: MODESTA KAMARA ([id number])[facility] ([facility])[address] [place] [address] Platelets (Bld) [#/Vol] 180 10*3/uL Normal 140-440 [facility] Comment on above: Performed By: #### L AB294 ####Gasoline Finisher: MODESTA KAMARA ([id number])[facility])[address] [place] [address] RBC (Bld) [#/Vol] 3.76 10*6/uL Low 3.80-5.20 [facility] Comment on above: Performed By: #### L AB294 ####Gasoline Finisher: MODESTA KAMARA ([id number])[facility] ([facility])[address] [place] [address] WBC (Bld) [#/Vol] 6.6 10*3/uL Normal 3.6-10.7 [facility] Comment on above: Performed By: #### L AB294 ####Gasoline Finisher: MODESTA KAMARA ([id number])[facility] ([facility])[address] [place] [address] CBC W/Diff, Automatedon 09-0 Absolute Neut Normal 2.0-7.7 [facility] Comment on above: Result Comment: RENNY ENT DISCHARGED Performed By: #### L 100.0100 ####[facility] [address] [facility] [id number] HCT Normal 37-47 [facility] Comment on above: Result Comment: RENNY ENT DISCHARGED Performed By: #### L 100.0100 ####[facility] [address] [facility] [id number] HGB Normal 12.0-15.0 [facility] Comment on above: Result Comment: RENNY ENT DISCHARGED Performed By: #### L 100.0100 ####[facility] [address] [place], [address] MCH Normal 27.0-32.0 [facility] Comment on above: Result Comment: RENNY ENT DISCHARGED Performed By: #### L 100.0100 ####[facility] [address] [place], [address] MCHC Normal 32-36 [facility] Comment on above: Result Comment: RENNY ENT DISCHARGED Performed By: #### L 100.0100 ####[facility] [address] [place], [address] MCV Normal 81-99 [facility] Comment on above: Result Comment: RENNY ENT DISCHARGED Performed By: #### L 100.0100 ####[facility] [address] [place], [address] NEUT% Normal 47-70 [facility] Comment on above: Result Comment: RENNY ENT DISCHARGED Performed By: #### L 100.0100 ####[facility] [address] [place], [address] PLT Normal 150-450 [facility] Comment on above: Result Comment: RENNY ENT DISCHARGED Performed By: #### L 100.0100 ####[facility] [address] [place], [address] RBC Normal 4.2-5.4 [facility] Comment on above: Result Comment: RENNY ENT DISCHARGED Performed By: #### L 100.0100 ####[facility] [address] [place], [address] RDW CV Normal 11.6-14.6 [facility] Comment on above: Result Comment: RENNY ENT DISCHARGED Performed By: #### L 100.0100 ####[facility] [address] [place], [address] RDW SD Normal 35.1-43.9 [facility] Comment on above: Result Comment: RENNY ENT DISCHARGED Performed By: #### L 100.0100 ####[facility] [address] [place], [place], [id number] WBC Normal 4.4-11.0 [facility] Comment on above: Result Comment: RENNY ENT DISCHARGED Performed By: #### L 100.0100 ####[facility] [address] [place], [place], [address] CBC panel Auto (Bld)on 06-06 Erythrocyte distribution width (RBC) [Ratio] 14.2 % 11.5 - 15.0 % [facility] Hematocrit (Bld) [Volume fraction] 34.2 % Low 35.0 - 47.0 % [facility] Hemoglobin (Bld) [Mass/Vol] 11.0 g/dL Low 11.7 - 16.0 g/dL [facility] Interpretation and review of laboratory results Abnormal [facility] MCH (RBC) [Entitic mass] 29.3 pg 26.0 - 34.0 pg [facility] MCHC (RBC) [Mass/Vol] 32.2 % 30.5 - 36.0 % [facility] MCV (RBC) [Entitic vol] 91.0 fL 77.0 - 99.0 fL [facility] Platelet mean volume (Bld) [Entitic vol] 11.4 fL 9.0 - 12.7 fL [facility] Platelets (Bld) [#/Vol] 180 10*3/uL 140 - 440 10*3/uL [facility] RBC (Bld) [#/Vol] 3.76 10*6/uL Low 3.80 - 5.2 0 10*6/uL [facility] WBC (Bld) [#/Vol] 6.6 10*3/uL 3.6 - 10.7 10*3/uL [facility] CHLAMYDIA/GONORRHEAon 2023 CHLAMYDIA/GONORRHEA NEISSERIA GONORRHOEAE DNA PROBE Reference Not Detected Not Detected [...] should be collected if clinically indicated. Normal [facility] Comment on above: Performed By: #### L [id number], [id number] #### Gasoline Finisher: MODESTA KAMARA ([id number]) [facility]) [address] [place] [address] COMPREHENSIVE METABOLIC PANE Lucio 06-06-2024 Albumin [Mass/Vol] 3.7 g/dL Normal 3.5-5.0 [facility] Comment on above: Performed By: #### L AB17 ####Gasoline Finisher: MODESTA KAMARA ([id number])[facility])[address] [place] [address] ALP [Catalytic activity/Vol] 112 U/L Normal 38-126 [facility] Comment on above: Performed By: #### L AB17 ####Gasoline Finisher: MODESTA KAMARA ([id number])[address] ALT [Catalytic activity/Vol] 16 U/L Normal 0-34 [facility] Comment on above: Performed By: #### L AB17 ####Gasoline Finisher: MODESTA KAMARA ([id number])[address] Anion gap [Moles/Vol] 9 mmol/L Normal 3-13 [facility] Comment on above: Performed By: #### L AB17 ####Gasoline Finisher: MODESTA [id number])[address] AST [Catalytic activity/Vol] 27 U/L Normal 15-46 [facility] Comment on above: Performed By: #### L AB17 ####Gasoline Finisher: MODESTA [id number])[facility] ([facility])[address] [place] [address] Bilirubin [Mass/Vol] 0.4 mg/dL Normal 0.2-1.3 [facility] Comment on above: Performed By: #### L AB17 ####Gasoline Finisher: MODESTA KAMARA ([id number])[facility])[address] [place] [address] Calcium [Mass/Vol] 9.2 mg/dL Normal 8.4-10.4 [facility] Comment on above: Performed By: #### L AB17 ####Gasoline Finisher: MODESTA KAMARA ([id number])[facility] [place] [address] Chloride [Moles/Vol] 111 mmol/L High 98-107 [facility] Comment on above: Performed By: #### L AB17 ####Gasoline Finisher: MODESTA KAMARA ([id number])[facility] [place] [address] CO2 [Moles/Vol] 16 mmol/L Low 22-30 [facility] Comment on above: Performed By: #### L AB17 ####Gasoline Finisher: MODESTA KAMARA ([id number])[facility] ([facility])[address] [place] [address] Creatinine [Mass/Vol] 0.50 mg/dL Low 0.52-1.04 [facility] Comment on above: Performed By: #### L AB17 ####Gasoline Finisher: MODESTA KAMARA ([id number])[facility] ([facility])[address] [place] [address] GLOMERULAR FILTRATION RATE ML/MIN/1.73 SQ M.PREDICTED >90.0 Normal >60.0 [facility] Comment on above: Result Comment: Calc ulation based on the Chronic Kidney Disease Epidemiology Collaboration (CKD-EPI) equation refit without adjustment for race Performed By: #### L AB17 ####Gasoline Finisher: MODESTA KAMARA ([id number])[facility] ([facility])[address] [place] [address] Glucose [Mass/Vol] 106 mg/dL High 70-100 [facility] Comment on above: Performed By: #### L AB17 ####Gasoline Finisher: MODESTA KAMARA ([id number])[facility])[address] [place] [address] Potassium [Moles/Vol] 4.1 mmol/L Normal 3.5-5.1 [facility] Comment on above: Performed By: #### L AB17 ####Gasoline Finisher: MODESTA KAMARA ([id number])[facility] ([facility])[address] [place] [address] Protein [Mass/Vol] 6.8 g/dL Normal 6.3-8.2 [facility] Comment on above: Performed By: #### L AB17 ####Gasoline Finisher: MODESTA KAMARA ([phone])[facility] ([facility])[address] [place] [address] Sodium [Moles/Vol] 136 mmol/L Normal 135-145 [facility] Comment on above: Performed By: #### L AB17 ####Gasoline Finisher: MODESTA KAMARA ([id number])[facility])[address] [place] [address] Urea nitrogen [Mass/Vol] 7 mg/dL Normal 7-17 [facility] Comment on above: Performed By: #### L AB17 ####Gasoline Finisher: MODESTA KAMARA ([id number])[facility])[address] [place] [address] Comprehensive metabolic 1998 panelon 06-06-2024 Albumin [Mass/Vol] 3.7 g/dL 3.5 - 5.0 g/dL [facility] ALP [Catalytic activity/Vol] 112 U/L 38 - 126 U/L [facility] ALT [Catalytic activity/Vol] 16 U/L 0 - 34 U/L [facility] Anion gap [Moles/Vol] 9 mmol/L 3 - 13 mmol/L [facility] AST [Catalytic activity/Vol] 27 U/L 15 - 46 U/L [facility] Bilirubin [Mass/Vol] 0.4 mg/dL 0.2 - 1 .3 mg/dL [facility] Calcium [Mass/Vol] 9.2 mg/dL 8.4 - 10. 4 mg/dL [facility] Chloride [Moles/Vol] 111 mmol/L High 98 - 10 7 mmol/L [facility] CO2 [Moles/Vol] 16 mmol/L Low 22 - 30 mmol/L [facility] Creatinine [Mass/Vol] 0.50 mg/dL Low 0.52 - 1.04 mg/dL [facility] GFR/1.73 sq M.predicted (S/P/Bld) [Vol rate/Area] - PINF [facility] Comment on above: Calculation based on the Chronic Kidney Disease Epidemiology Collaboration (CKD-EPI) equation refit without adjustment for race Glucose [Mass/Vol] 106 mg/dL High 70 - 100 mg/dL [facility] Interpretation and review of laboratory results Abnormal [facility] Potassium [Moles/Vol] 4.1 mmol/L 3.5 - 5.1 mmol/L [facility] Protein [Mass/Vol] 6.8 g/dL 6.3 - 8.2 g/dL [facility] Sodium [Moles/Vol] 136 mmol/L 135 - 145 mmol/L [facility] Urea nitrogen [Mass/Vol] 7 mg/dL 7 - 17 mg/d L [facility] Consulton 06-06-2024 Consult Consult by Neonatology Request by OB: Dr. Bar Reason for Consult: Prematurity [place]-Di twins Maternal History and current problem: The patient is a 33 y.o. 33w4d admitted overnight for labor. Has mono/di twin that was otherwise uncomplicated. On admission was 2cm dilated. Received BMZ, procardia tocolysis. Significant history: [place]- Di twins, contractions, heart murmur (Hx of [...] no Low risk NIPT Can deliver in [place] at 34 weeks, confirmed with Dr. Hart [...] from NICU Potential need for transfer to [facility] NICU if needs esclation of care, based on a variety of factors. Handouts given. No further questions. 1. Current Management per OB 2. NICU to attend delivery 3. Call NICU if further questions. [facility] Consult Pharmacy Managed Vancomycin Dosing Service Consult Note Consult Date: 06/06/24 Patient Name: Willis Gautam Allergies: Pcn [penicillins] Age: 33 y.o. Sex: female There is no height or weight on file to calculate BMI. DW: 108.5 kg No results found for: CREATININE, BUN, WBC, CRCLEARANCECalcula letty CrCl: none mL/min (Cockcroft-Gault) Consulted By: Pratima Alberto Infectious Diagnosis: GBS prophylaxis Random Vancomycin Level Due: 06/07/24 at 0430 Assessment/Plan: Doses, serum creatinine, and vancomycin levels interfaced automatically to [employer] and data has been analyzed and interpreted. Start Vancomycin 2000 mg every 8 hours based on patient age, weight, renal function, and infectious diagnosis (20 mg/kg). Will assess random level on 06/07/24 and adjust as appropriate. Trend serum creatinine. Orders placed. Thank you for this consult. Please secure text or call with questions. DATE: 06/06/24 TIME: 4:54 AM Evelia Chin, Erin Clinical Pharmacist Available via Secure Chat [facility] GROUP B STREP SCREEN BY PCRo n 06-06-2024 GROUP B STREP SCREEN BY PCR GROUP B STREP SCREEN BY PCR Reference Not Detected Not Detected ORDER COMMENTS: Methodology: real-time PCR [facility] Comment on above: Performed By: #### L [id number] ####Gasoline Finisher: MODESTA KAMARA ([id number])[facility] L509.8000on 06-06-2024 Syphilis Abs Non-Reactive Normal [facility] Comment on above: Performed By: #### L 509.8000 ####[facility] [address] [place], [address] Laboratory - Blood bankon A variant subtype Ab Ql DPASSIVE S [facility] - Chemistry and C hemistry - challengeon 06-06-2024 Glucose [Mass/Vol] 135 mg/dL High 70 - 100 mg/dL [facility] Glucose [Mass/Vol] 144 mg/dL High 70 - 100 mg/dL [facility] N. gonorrhoeae DNA SONA+probe Ql (Cervical mucus)on 06-06-2024 C. trachomatis DNA SONA+probe Ql (Unsp spec) Not detected Not Detected [facility] Interpretation and review of laboratory results Normal [facility] N gonorrhoeae, DNA Probe Not detected Not Detec letty [facility] Methodology: real-time PCR This test is intended [...] specimen should be collected if clinically indicated. [facility] [employer] No Panel Informationon 06-06 Interpretation and review of laboratory results Abnormal [facility] [employer] Performed by: [facility], [address] [place] [id number] CLIA ID: [id number] [facility] Interpretation and review of laboratory results Abnormal [facility] Performed by: [facility], [address] [facility] [address] CLIA ID: [id number] [facility] 1. Monochorionic diamniotic twin at 33 3/4 [...] 06/06/2024 12:42 pm) PATIENT INFO: ID #: [id number] : [birth year] (33 yrs)(F) Name: WILLIS GAUTAM Visit Date: 06/06/2024 10:20 am PERFORMED BY: Attending: Lucinda Bar Performed By: Shani Hines RDMS Referred By: IMAN NARAYANAN Location: [facility] IP Visit Type: Inpatient - Hospital SERVICE(S) [place]: [place] [address] [place] [address] BPP w/out NST 13628 BPP w/out NST 89723 INDICATIONS: Twin , monochorionic/diamni otic, O30.033 third trimester False labor before 37 completed weeks of O47.00 gestation, unspecified trimester Twin , monochorionic/diamni otic, O30.033 third trimester False labor before 37 completed weeks of O47.00 gestation, unspecified trimester Twin , monochorionic/diamni otic, O30.033 third trimester Twin , monochorionic/diamni otic, O30.033 third trimester False labor before 37 [...] Largest Pocket(cm) 4.2 (more content not included)... [facility] EMERGENCY [facility]PARTMENT RADIOLOGY SYSTEM Lucinda Bar MD - 06/06/2024 OBSTETRICS REPORT (Signed Final 06/06/2024 12:42 pm) PATIENT INFO: ID #: [id number] : [birth year] (33 yrs)(F) Name: WILLIS GAUTAM Visit Date: 06/06/2024 10:20 am PERFORMED BY: Attending: Lucinda Bar Performed By: Shani Hines RDMS Referred By: IMAN NARAYANAN Location: [facility] IP Visit Type: Inpatient - Hospital SERVICE(S) [place]: [place] [address] [place] [address] BPP w/out NST 37480 BPP w/out NST 71285 INDICATIONS: Twin , monochorionic/diamni otic, O30.033 third trimester False labor before 37 completed weeks of O47.00 gestation, unspecified trimester Twin , monochorionic/diamni otic, O30.033 third trimester False labor before 37 completed weeks of O47.00 gestation, unspecified trimester Twin , monochorionic/diamni otic, O30.033 third trimester Twin , monochorionic/diamni otic, O30.033 third trimester False labor before 37 [...] Normal appearance Thora (more content not included)... [facility] Radiology Study observation (narrative) [facility] gladis Lopez Panel InformationOrdered By: Lucinda Bar on 06-06-2024 [facility] Work Phone: OB Triage Physician Noteon 0 06-06-2024 OB Triage Physician Note Normal [facility] Progress Noteon 06-06-2024 Progress Note Vancomycin therapy has been discontinued by Dr Syed on 06/06/24. Thank you for the consult. Pharmacy signing off for vancomycin dosing. Sukhi Raymond, PharmD Date: 06/06/24 Time: 5:16 PM Normal [facility] T. vaginalis DNA SONA+probe Q l (Genital specimen)on 06-06-2024 Interpretation and review of laboratory results Normal [facility] Trichomonas vaginalis Not detected Not Detected [facility] Methodology: real-time PCR A negative result does [...] sexual abuse or for other forensic purposes. [facility] TRICHOMONAS VAGINALIS PCRon 06-06-2024 TRICHOMONAS VAGINALIS PCR [...] abuse or for other forensic purposes. Normal [facility] Comment on above: Performed By: #### L [id number], [id number] #### Gasoline Finisher: MODESTA KAMARA ([id number]) [facility] [address] [place] [address] Type AND Screenon 06-06-2024 Ab SCREEN GEL TNP Normal [facility] Comment on above: Order Comment: PN Result Comment: AMENDED REPORT 06/06/24 0033: Antibody Screen previously reported as:Test not performed Performed By: #### B 54833-0, TINA Clemons ####[facility] [address] [place], [address] URINE CULTUREon 06-06-2024 Bacteria identified Cx Nom (U) URINE CULTURE Reference Normal urogenital rosy present [ S = SUSCEPTIBLE R = RESISTANT I = INTERMEDIATE S-DD = Susceptible-dose dependent NS = Non-susceptible NO = No Interpretation ] [facility] Comment on above: Performed By: #### L [id number] ####Gasoline Finisher: MODESTA KAMARA ([id number])[address] US BIOPHYSICAL PROFILE WO NON STRESS TESTINGon 06-06-2024 US BIOPHYSICAL PROFILE WO NON STRESS TESTING OBSTETRICS REPORT (Signed Final 06/06/2024 12:42 pm) PATIENT INFO: ID #: [id number] : [birth year] (33 yrs)(F) Name: WILLIS GAUTAM Visit Date: 06/06/2024 10:20 am PERFORMED BY: Attending: Lucinda Bar Performed By: Shani Hines RDOK Referred By: IMAN NARAYANAN Location: [facility] IP Visit Type: Inpatient - Hospital SERVICE(S) [place]: [place] [address] [place] [address] BPP w/out NST 26115 BPP w/out NST 47694 INDICATIONS: Twin , monochorionic/diamni otic, O30.033 third trimester False labor before 37 completed weeks of O47.00 gestation, unspecified trimester Twin , monochorionic/diamni otic, O30.033 third trimester False labor before 37 completed weeks of O47.00 gestation, unspecified trimester Twin , monochorionic/diamni otic, O30.033 third trimester Twin , monochorionic/diamni otic, O30.033 third trimester False labor before 37 [...] 22.7 % 20 - 24 Est. FW: 2056 gm 4 lb 9 [...] Diaphragm: Lisa (more content not included)... Normal [facility] OB FOLLOW UP TRANSABDOMIN AL APPROACHon 06-06-2024 US OB FOLLOW UP TRANSABDOMINAL APPROACH OBSTETRICS REPORT (Signed Final 06/06/2024 12:42 pm) PATIENT INFO: ID #: [id number] : [birth year] (33 yrs)(F) Name: WILLIS GAUTAM Visit Date: 06/06/2024 10:20 am PERFORMED BY: Attending: Lucinda Bar Performed By: Shani Hines [facility] Referred By: IMAN NARAYANAN Location: [facility] Visit Type: Inpatient - Hospital SERVICE(S) [place]: [place] [address] [place] [address] BPP w/out NST 06157 BPP w/out NST 94476 INDICATIONS: Twin , monochorionic/diamni otic, O30.033 third trimester False labor before 37 completed weeks of O47.00 gestation, unspecified trimester Twin , monochorionic/diamni otic, O30.033 third trimester False labor before 37 completed weeks of O47.00 gestation, unspecified trimester Twin , monochorionic/diamni otic, O30.033 third trimester Twin , monochorionic/diamni otic, O30.033 third trimester False labor before 37 [...] Diaphragm: Lisa (more content not included)... Normal [facility] CBC W/Diff, Automatedon 090 -2023 Absolute Lymph 1.17 X10 3/uL Normal 0.83-4.51 [facility] Comment on above: Performed By: #### L 100.0100 ####[facility] [address] [place], [address] Absolute Neut 4.9 X10 3/uL Normal 2.0-7.7 [facility] Comment on above: Performed By: #### L 100.0100 ####[facility] [address] [place], [address] Basophils/100 WBC (Bld) 0.2 % Normal 0-1 [facility] Comment on above: Performed By: #### L 100.0100 ####[facility] [address] [place], [address] Eosinophils/100 WBC (Bld) 0.8 % Normal 0-5 [facility] Comment on above: Performed By: #### L 100.0100 ####[facility] [address] [place], [address] Erythrocyte distribution width (RBC) [Ratio] 14.1 % Normal 11.6-14.6 [facility] Comment on above: Performed By: #### L 100.0100 ####[facility] [address] [place], [address] Hematocrit (Bld) [Volume fraction] 32.3 % Low 37-47 [facility] Comment on above: Performed By: #### L 100.0100 ####[facility] [address] [place], [address] Hemoglobin (Bld) [Mass/Vol] 10.4 g/dL Low 12.0-15.0 [facility] Comment on above: Performed By: #### L 100.0100 ####[facility] [address] [place], [address] IG% 0.300 Normal 0.0-0.9 [facility] Comment on above: Result Comment: IG% - Immature Granulocytes (promyelocytes, myelocytes andmetamyelocytes) > 1% indicates that a LEFT SHIFT is Present. Performed By: #### L 100.0100 ####[facility] [address] [place], [address] Lymphocytes/100 WBC (Bld) 17.8 % Low 19-41 [facility] Comment on above: Performed By: #### L 100.0100 ####[facility] [address] [place], [address] MCH (RBC) [Entitic mass] 29.5 pg Normal 27.0-32.0 [facility] Comment on above: Performed By: #### L 100.0100 ####[facility] [address] [place], [address] MCHC (RBC) [Mass/Vol] 32.2 g/dL Normal 32-36 [facility] Comment on above: Performed By: #### L 100.0100 ####[facility] [address] [place], [address] MCV (RBC) [Entitic vol] 91.8 fL Normal 81-99 [facility] Comment on above: Performed By: #### L 100.0100 ####[facility] [address] [place], [address] Monocytes/100 WBC (Bld) 6.4 % Normal 0-10 [facility] Comment on above: Performed By: #### L 100.0100 ####[facility] [address] [place], [address] Neutrophils/100 WBC (Bld) 74.5 % High 47-70 [facility] Comment on above: Performed By: #### L 100.0100 ####[facility] [address] [place], [address] Nucleated RBC (Bld) [#/Vol] 0 10*3/uL Normal 0-5 [facility] Comment on above: Performed By: #### L 100.0100 ####[facility] [address] [place], [address] Platelet mean volume (Bld) [Entitic vol] 10.9 fL Normal 6.2-12.0 [facility] Comment on above: Performed By: #### L 100.0100 ####[facility] [address] [place], [address] Platelets (Bld) [#/Vol] 170 10*3/uL Normal 150-450 [facility] Comment on above: Performed By: #### L 100.0100 ####[facility] [address] [place], [address] RBC (Bld) [#/Vol] 3.52 10*6/uL Low 4.2-5.4 [facility] Comment on above: Performed By: #### L 100.0100 ####[facility] [address] [place], [address] RDW SD 47.0 fl High 35.1-43.9 [facility] Comment on above: Performed By: #### L 100.0100 ####[facility] [address] [place], [address] WBC (Bld) [#/Vol] 6.6 10*3/uL Normal 4.4-11.0 [facility] Comment on above: Performed By: #### L 100.0100 ####[facility] [address] [place], [address] Comprehensive Metabolic Prof ilon 06-05-2024 Albumin [Mass/Vol] 2.7 g/dL Low 3.2-5.0 [facility] Comment on above: Performed By: #### L 500.4050 ####[facility] [address] [place], [address] Albumin/Globulin [Mass ratio] 0.7 {ratio} Low 0.9-2.4 [facility] Comment on above: Performed By: #### L 500.4050 ####[facility] [address] [place], [address] ALK P 102 U/L Normal 45-117 [facility] Comment on above: Performed By: #### L 500.4050 ####[facility] [address] [place], [address] ALT [Catalytic activity/Vol] 18 U/L Normal 13-56 [facility] Comment on above: Performed By: #### L 500.4050 ####[facility] [address] [place], [address] AST [Catalytic activity/Vol] 18 U/L Normal 15-37 [facility] Comment on above: Performed By: #### L 500.4050 ####[facility] [address] [place], [address] Bilirubin [Mass/Vol] 0.30 mg/dL Normal 0.20-1.00 [facility] Comment on above: Result Comment: For patients on eltrombopag therapy, use of Dimension [place] TBIL is not recommended. Performed By: #### L 500.4050 ####[facility] [address] [place], [address] BUN/CRE 12.9 RATIO Normal 10-20 [facility] Comment on above: Performed By: #### L 500.4050 ####[facility] [address] [place], [address] CA,Total 8.8 mg/dL Normal 8.5-10.1 [facility] Comment on above: Performed By: #### L 500.4050 ####[facility] [address] [place], [address] Chloride [Moles/Vol] 111 mmol/L High 98-107 [facility] Comment on above: Performed By: #### L 500.4050 ####[facility] [address] [place], [address] CO2 [Moles/Vol] 19.0 mmol/L Low 21.0-32.0 [facility] Comment on above: Performed By: #### L 500.4050 ####[facility] [address] [place], [address] Creatinine [Mass/Vol] 0.62 mg/dL Normal 0.55-1.02 [facility] Comment on above: Result Comment: The validity of the calculated GFR GFRAA in patients over70 years has not been determined. Clinical correlation isessential. Performed By: #### L 500.4050 ####[facility] [address] [place], [address] ECRCL 168.51 ml/min Normal [facility] Comment on above: Performed By: #### L 500.4050 ####[facility] [address] [place], [address] EST GFR - AA 143 mL/min Normal >60 [facility] Comment on above: Result Comment: Afri can Somali GFR Calc Performed By: #### L 500.4050 ####[facility] [address] [place], [address] GAP 8 Normal 5-15 [facility] Comment on above: Performed By: #### L 500.4050 ####[facility] [address] [place], [address] GFR/1.73 sq M.predicted among non-blacks MDRD (S/P/Bld) [Vol rate/Area] 118 mL/min/{1.73_m2} Normal >60 [facility] Comment on above: Result Comment: Non- GFR Calc Performed By: #### L 500.4050 ####[facility] [address] [place], [address] Globulin (S) [Mass/Vol] 3.8 g/dL Normal 2.2-4.2 [facility] Comment on above: Performed By: #### L 500.4050 ####[facility] [address] [place], [address] Glucose [Mass/Vol] 109 mg/dL High 74-106 [facility] Comment on above: Result Comment: Fast ing Glucose result from 100 to 125 mg/dLsuggests IMPAIRED HOMEOSTASIS per A.D.A. criteria. Performed By: #### L 500.4050 ####[facility] [address] [place], [address] Potassium [Moles/Vol] 3.6 mmol/L Normal 3.5-5.1 [facility] Comment on above: Performed By: #### L 500.4050 ####[facility] [address] [place], [address] Sodium [Moles/Vol] 138 mmol/L Normal 136-145 [facility] Comment on above: Performed By: #### L 500.4050 ####[facility] [address] [place], [address] T PROT 6.5 g/dL Normal 6.4-8.2 [facility] Comment on above: Performed By: #### L 500.4050 ####[facility] [address] [place], [place], [address] Urea nitrogen [Mass/Vol] 8 mg/dL Normal 7-18 [facility] Comment on above: Performed By: #### L 500.4050 ####[facility] [address] [place], [place], [address] Fibronectinon 06-05-20 24 fFIBRONECTIN Negative Normal [facility] Comment on above: Performed By: #### L 205.0000 ####[facility] [address] [place], [place], [address] CNOVon 06-03-2024 CNOV Office Visit (UCWSTR) WILLIS GAUTAM ([id number]) 1990 F Date Time Provider Department 06/03/24 2:45 PM MARY HERRERA [facility] During your visit today, we recorded the following information about you: Temperature Pulse Respiration Blood pressure 98.3 degrees 75/minute 16/minute 122/78 Weight 108.5 kg Mary Herrera APRN.GLAZE CARRIER 06/03/2024 2:39 PM Signed This note was created using NoteWriter. Subjective [...] history is provided by the patient. No second language tutor was used. Pain (foot) Pain location: right [...] color change, itching, pallor, rash and wound. Allergic/Immunologic : Negative for environmental allergies, food allergies and immunocompromised state. Neurological: Negative for dizziness, tingling, facial asymmetry and numbness. Hematological: Negative for adenopathy. Does not bruise/bleed easily. Psychiatric/Behavior al: Negative for agitation and behavioral problems. Objective [...] Pulses: Lisa (more content not included)... Normal [facility] XR FOOT 3V AP/LAT/OBL RTon 0 06-03-2024 XR FOOT 3V AP/LAT/OBL RT * * *Final Repo rt* * * DATE OF EXAM: Jun 03 [...] No radiographic evidence of acute osseous injury Direct Support Worker: [facility] Transcribe Date/Time: Jun 03 2024 2:11P Dictated by : ROME DARBY MD This examination was interpreted and the report reviewed and electronically signed by: ROME DARBY MD on Jun 03 2024 2:23PM EST [id number] Normal [facility] XR Foot - right AP and Later al and obliqueon 06-03-2024 IMPRESSION: No radiographic evidence of acute osseous injury Direct Support Worker: [facility] Transcribe Date/Time: Jun 03 2024 2:11P Dictated by : ROME DARBY MD This examination was interpreted and the report reviewed and electronically signed by: RMOE DARBY MD on Jun 03 2024 2:23PM [facility] DIVISION OF RADIOLOGY * * *Final Report* [...] Joint spaces preserved. DIVISION OF RADIOLOGY Provider, [facility] [place] - 06/03/2024 * * *Final Report* * [...] No radiographic evidence of acute osseous injury Direct Support Worker: [facility] Transcribe Date/Time: Jun 03 2024 2:11P Dictated by : ROME DARBY MD This examination was interpreted and the report reviewed and electronically signed by: ROME DARBY MD on Jun 03 2024 2:23PM [facility] Radiology Study observation (narrative) [facility] XR Foot - right AP and Later al and obliqueOrdered By: Cc Provider on 06-03-2024 [facility] Lithography Contact Worker Office Visit Reporton 05-28-2024 Lithography Contact Worker Office Visit Report Normal [facility] Lithography Contact Worker Office Visit Reporton 05-12-2024 Lithography Contact Worker Office Visit Report Normal [facility] Bedside Glucoseon 05-08-2024 FINGERSTICK GLU 88 mg/dL Normal 74-106 [facility] Comment on above: Result Comment: LENA ZURITA OF PATIENT CARE PER NURSING PROTOCOL Performed By: #### L 501.080 ####[facility] [address] [place], [address] Gestational GTT 3HR 100gon 0 05-08-2024 3HR GTT- GEST. Normal [facility] Comment on above: Order Comment: Y Result Comment: FAST ING 83 Col: 05/08/24 0714GLUCOSE TOLERANCE TEST FOR Reference Interval GESTATIONAL DIABETES Fasting <105 mg/dL 1 hour <190 mg/dl 2 hour <165 mg/dl 3 hour <145 mg/dl 1 HR GLU 181 Col: 05/08/24 0814 2 HR GLU 150 Col: 05/08/24 0914 3 HR GLU 109 Col: 05/08/24 1014 Performed By: #### L 500.4710 ####[facility] [address] [place], [address] CBC W/Diff, Automatedon 04-01 Absolute Lymph 0.95 X10 3/uL Normal 0.83-4.51 [facility] Comment on above: Performed By: #### L 3890.6005, L501.0250, L509.8000, L100.0100, BTS ####[facility] [address] [place], [address] Absolute Neut 4.4 X10 3/uL Normal 2.0-7.7 [facility] Comment on above: Performed By: #### L 3890.6005, L501.0250, L509.8000, L100.0100, BTS ####[facility] [address] [place], [address] Basophils/100 WBC (Bld) 0.2 % Normal 0-1 [facility] Comment on above: Performed By: #### L 3890.6005, L501.0250, L509.8000, L100.0100, BTS ####[facility] [address] [place], [address] Eosinophils/100 WBC (Bld) 0.7 % Normal 0-5 [facility] Comment on above: Performed By: #### L 3890.6005, L501.0250, L509.8000, L100.0100, BTS ####[facility] [address] [place], [address] Erythrocyte distribution width (RBC) [Ratio] 12.7 % Normal 11.6-14.6 [facility] Comment on above: Performed By: #### L 3890.6005, L501.0250, L509.8000, L100.0100, BTS ####[facility] [address] [place], [address] Hematocrit (Bld) [Volume fraction] 32.3 % Low 37-47 [facility] Comment on above: Performed By: #### L 3890.6005, L501.0250, L509.8000, L100.0100, BTS ####[facility] [address] [place], [address] Hemoglobin (Bld) [Mass/Vol] 10.6 g/dL Low 12.0-15.0 [facility] Comment on above: Performed By: #### L 3890.6005, L501.0250, L509.8000, L100.0100, BTS ####[facility] [address] [place], [address] IG% 0.400 Normal 0.0-0.9 [facility] Comment on above: Result Comment: IG% - Immature Granulocytes (promyelocytes, myelocytes andmetamyelocytes) > 1% indicates that a LEFT SHIFT is Present. Performed By: #### L 3890.6005, L501.0250, L509.8000, L100.0100, BTS ####[facility] [address] [place], [address] Lymphocytes/100 WBC (Bld) 16.7 % Low 19-41 [facility] Comment on above: Performed By: #### L 3890.6005, L501.0250, L509.8000, L100.0100, BTS ####[facility] [address] [place], [address] MCH (RBC) [Entitic mass] 30.5 pg Normal 27.0-32.0 [facility] Comment on above: Performed By: #### L 3890.6005, L501.0250, L509.8000, L100.0100, BTS ####[facility] [address] [place], [address] MCHC (RBC) [Mass/Vol] 32.8 g/dL Normal 32-36 [facility] Comment on above: Performed By: #### L 3890.6005, L501.0250, L509.8000, L100.0100, BTS ####[facility] [address] [place], [address] MCV (RBC) [Entitic vol] 92.8 fL Normal 81-99 [facility] Comment on above: Performed By: #### L 3890.6005, L501.0250, L509.8000, L100.0100, BTS ####[facility] [address] [place], [address] Monocytes/100 WBC (Bld) 4.9 % Normal 0-10 [facility] Comment on above: Performed By: #### L 3890.6005, L501.0250, L509.8000, L100.0100, BTS ####[facility] [address] [place], [address] Neutrophils/100 WBC (Bld) 77.1 % High 47-70 [facility] Comment on above: Performed By: #### L 3890.6005, L501.0250, L509.8000, L100.0100, BTS ####[facility] [address] [place], [address] Nucleated RBC (Bld) [#/Vol] 0 10*3/uL Normal 0-5 [facility] Comment on above: Performed By: #### L 3890.6005, L501.0250, L509.8000, L100.0100, BTS ####[facility] [address] [place], [address] Platelet mean volume (Bld) [Entitic vol] 9.8 fL Normal 6.2-12.0 [facility] Comment on above: Performed By: #### L 3890.6005, L501.0250, L509.8000, L100.0100, BTS ####[facility] [address] [place], [address] Platelets (Bld) [#/Vol] 192 10*3/uL Normal 150-450 [facility] Comment on above: Performed By: #### L 3890.6005, L501.0250, L509.8000, L100.0100, BTS ####[facility] [address] [place], [address] RBC (Bld) [#/Vol] 3.48 10*6/uL Low 4.2-5.4 [facility] Comment on above: Performed By: #### L 3890.6005, L501.0250, L509.8000, L100.0100, BTS ####[facility] [address] [place], [address] RDW SD 42.8 fl Normal 35.1-43.9 [facility] Comment on above: Performed By: #### L 3890.6005, L501.0250, L509.8000, L100.0100, BTS ####[facility] [address] [place], [address] WBC (Bld) [#/Vol] 5.7 10*3/uL Normal 4.4-11.0 [facility] Comment on above: Performed By: #### L 3890.6005, L501.0250, L509.8000, L100.0100, BTS ####[facility] [address] [place], [address] Glucose Challenge Gest 1H 50 cecy 04-28-2024 GLU GEST 50g 1H 144 mg/dL High 70-140 [facility] Comment on above: Performed By: #### L 3890.6005, L501.0250, L509.8000, L100.0100, BTS ####[facility] [address] [place], [address] HIV - WCHon 04-28-2024 HIV Non-Reactive Normal Nonreactive [facility] Comment on above: Performed By: #### L 3890.6005, L501.0250, L509.8000, L100.0100, BTS ####[facility] [address] [place], [address] L509.8000on 04-28-2024 Syphilis Abs Non-Reactive Normal [facility] Comment on above: Performed By: #### L 3890.6005, L501.0250, L509.8000, L100.0100, BTS ####[facility] [address] [place], [address] Lithography Contact Worker Office Visit Reporton 04-28-2024 Lithography Contact Worker Office Visit Report Normal [facility] Type AND Screenon 04-28-2024 Ab SCREEN GEL Negative Normal [facility] Comment on above: Order Comment: PN Performed By: #### L 3890.6005, L501.0250, L509.8000, L100.0100, BTS ####[facility] [address] [place], [address] Lithography Contact Worker Office Visit Reporton 04-18-2024 Lithography Contact Worker Office Visit Report Normal [facility] Progress Noteon 04-15-2024 Printing Machine Mechanic Authentication Interface Message Text We had the pleasure of seeing Willis Gautam in Cardiology at the [facility] on 04/15/2024. Ms. Gautam is a 33 y.o. woman who is currently at 26 weeks of gestation seen in consultation for [place]-Di twins at the request of Dr. Angeli [...] to Visit Medication Sig Dispense Refill Vit w/Hh-Wkowifxys-NW (PNV PO) Take by mouth omeprazole (PRILOSEC) 10 MG capsule Take by mouth daily Magnesium 400 MG CAPS Take by mouth No current facility-administere d medications on file prior to visit. Allergies: Allergies Allergen Reactions Penicillins Hives and Rash Family history: The family history was reviewed and is otherwise unremarkable for congenital heart disease, sudden unexplained , arrhythmia. Social History: Wlilis Gautam lives with her family in [place], [place]. TWIN A, Echocardiogram (04/15/2024): No significant [...] discussed with the patient. Recommendations: follow-up if strategic alliances manager hears a heart murmur or otherwise clinically [...] discussed with the patient. Recommendations: follow-up if strategic alliances manager hears a heart murmur or otherwise clinically indicated. Impression: Both echocardiograms are normal. There is normal cardiac anatomy, function, and flow. There are no cardiovascular manifestations of hizs-ey-tarm transfusion syndrome, at this time. Following the [...] with Pediatric Cardiology: Not indicated, unless the strategic alliances manager hears a murmur or otherwise is concerned. Total encounter time was 30 minutes, which includes chart review, counseling, documentation and/or coordination of care. This is separate from the time spent performing and interpreting the echocardiogram. Portions of this medical record have been created using voice recognition software and may have minor errors which are inherent in voice recognition systems. Deborah Suero DO [employer] Black Trainer [facility] [address] [place] [address] Toll-Free: [email or web address] Normal [facility] Lithography Contact Worker Office Visit Reporton 03-20-2024 Lithography Contact Worker Office Visit Report Normal [facility] Progress Noteon 02-20-2024 Printing Machine Mechanic Authentication Interface Message Text [facility] MATERNAL- MEDICINE CONSULT Referring/Requesting Provider: Claudia Aguilera [...] has plans to travel by car to [place] in March, about a [address] Recommend stopping and walking every 2-3 hours for VTE prevention. She would carol like to travel to [facility] for a wedding in May. We [...] Gibson, DO Medication Sig Dispense Refill Vit w/Ei-Tgdkcvqfb-PK (PNV PO) Take by mouth omeprazole (PRILOSEC) [...] with an increased risk of maternal, and infant morbidity and mortality compared to glass gestations. Maternal risks include: hyperemesis, gestational diabetes, hypertension, anemia, hemorrhage, delivery and depression. risks include: twin-twin transfusion syndrome, twin anemia/polycythemia sequence, congenital anomalies, , growth restriction and stillbirth with possible sequelae to a surviving co-twin. risks are largely related to prematurity and [...] 2 wee (more content not included)... Normal [facility] Lithography Contact Worker Office Visit Reporton 02-18-2024 Lithography Contact Worker Office Visit Report Normal [facility] Lithography Contact Worker Office Visit Reporton 01-21-2024 Lithography Contact Worker Office Visit Report Normal [facility] Lithography Contact Worker Office Visit Reporton 01-09-2024 Lithography Contact Worker Office Visit Report Normal [facility] Absolute lymphocyte countOrd ered By: Marianne Juno on 12-24-2023 Lymphocytes Auto (Unsp spec) [#/Vol] 1.40 10*3/uL 0.83-4.51 [facility] Automated lymphocyte count a s percentage of total leukocytesOrdered By: Marianne Fraire on 12-24-2023 Lymphocytes/100 WBC Auto (Unsp spec) 23.2 % 19-41 [facility] Basophil percentageOrdered B y: Marianne Fraire on 12-24-2023 Basophils/100 WBC (Bld) 0.2 % 0-1 [facility] Eosinophils/100 WBC (Bld) 1.5 % 0-5 [facility] Hemoglobin (Bld) [Mass/Vol] 12.8 g/dL 12.0-15.0 [facility] Monocytes/100 WBC (Bld) 6.1 % 0-10 [facility] Neutrophils (Bld) [#/Vol] 4.1 10*3/uL 2.0-7.7 [facility] Neutrophils/100 WBC (Bld) 68.7 % 47-70 [facility] WBC (Bld) [#/Vol] 6.0 10*3/uL 4.4-11.0 [facility] CBC W/Diff, Automatedon 11-30 Absolute Lymph 1.40 X10 3/uL Normal 0.83-4.51 [facility] Comment on above: Performed By: #### L 3890.6300, L900.0098, BTS, L3890.6100, L501.9985, L509.8000, L3890.6005, L509.4005, L100.0100 ####[facility] [address] [place], [address] Absolute Neut 4.1 X10 3/uL Normal 2.0-7.7 [facility] Comment on above: Performed By: #### L 3890.6300, L900.0098, BTS, L3890.6100, L501.9985, L509.8000, L3890.6005, L509.4005, L100.0100 ####[facility] [address] [place], [address] Basophils/100 WBC (Bld) 0.2 % Normal 0-1 [facility] Comment on above: Performed By: #### L 3890.6300, L900.0098, BTS, L3890.6100, L501.9985, L509.8000, L3890.6005, L509.4005, L100.0100 ####[facility] [address] [place], [address] Eosinophils/100 WBC (Bld) 1.5 % Normal 0-5 [facility] Comment on above: Performed By: #### L 3890.6300, L900.0098, BTS, L3890.6100, L501.9985, L509.8000, L3890.6005, L509.4005, L100.0100 ####[facility] [address], [address] Erythrocyte distribution width (RBC) [Ratio] 12.3 % Normal 11.6-14.6 [facility] Comment on above: Performed By: #### L 3890.6300, L900.0098, BTS, L3890.6100, L501.9985, L509.8000, L3890.6005, L509.4005, L100.0100 ####[facility] [address] [place], [address] Hematocrit (Bld) [Volume fraction] 38.6 % Normal 37-47 [facility] Comment on above: Performed By: #### L 3890.6300, L900.0098, BTS, L3890.6100, L501.9985, L509.8000, L3890.6005, L509.4005, L100.0100 ####[facility] [address] [place], [address] Hemoglobin (Bld) [Mass/Vol] 12.8 g/dL Normal 12.0-15.0 [facility] Comment on above: Performed By: #### L 3890.6300, L900.0098, BTS, L3890.6100, L501.9985, L509.8000, L3890.6005, L509.4005, L100.0100 ####[facility] [address] [place], [address] IG% 0.300 Normal 0.0-0.9 [facility] Comment on above: Result Comment: IG% - Immature Granulocytes (promyelocytes, myelocytes andmetamyelocytes) > 1% indicates that a LEFT SHIFT is Present. Performed By: #### L 3890.6300, L900.0098, BTS, L3890.6100, L501.9985, L509.8000, L3890.6005, L509.4005, L100.0100 ####[facility] [address] [place], [address] Lymphocytes/100 WBC (Bld) 23.2 % Normal 19-41 [facility] Comment on above: Performed By: #### L 3890.6300, L900.0098, BTS, L3890.6100, L501.9985, L509.8000, L3890.6005, L509.4005, L100.0100 ####[facility] [address] [place], [address] MCH (RBC) [Entitic mass] 29.8 pg Normal 27.0-32.0 [facility] Comment on above: Performed By: #### L 3890.6300, L900.0098, BTS, L3890.6100, L501.9985, L509.8000, L3890.6005, L509.4005, L100.0100 ####[facility] [address] [place], [address] MCHC (RBC) [Mass/Vol] 33.2 g/dL Normal 32-36 [facility] Comment on above: Performed By: #### L 3890.6300, L900.0098, BTS, L3890.6100, L501.9985, L509.8000, L3890.6005, L509.4005, L100.0100 ####[facility] [address] [place], [address] MCV (RBC) [Entitic vol] 89.8 fL Normal 81-99 [facility] Comment on above: Performed By: #### L 3890.6300, L900.0098, BTS, L3890.6100, L501.9985, L509.8000, L3890.6005, L509.4005, L100.0100 ####[facility] [address] [place], [address] Monocytes/100 WBC (Bld) 6.1 % Normal 0-10 [facility] Comment on above: Performed By: #### L 3890.6300, L900.0098, BTS, L3890.6100, L501.9985, L509.8000, L3890.6005, L509.4005, L100.0100 ####[facility] [address] [place], [address] Neutrophils/100 WBC (Bld) 68.7 % Normal 47-70 [facility] Comment on above: Performed By: #### L 3890.6300, L900.0098, BTS, L3890.6100, L501.9985, L509.8000, L3890.6005, L509.4005, L100.0100 ####[facility] [address] [place], [address] Nucleated RBC (Bld) [#/Vol] 0 10*3/uL Normal 0-5 [facility] Comment on above: Performed By: #### L 3890.6300, L900.0098, BTS, L3890.6100, L501.9985, L509.8000, L3890.6005, L509.4005, L100.0100 ####[facility] [address] [place], [address]( Platelet mean volume (Bld) [Entitic vol] 9.9 fL Normal 6.2-12.0 [facility] Comment on above: Performed By: #### L 3890.6300, L900.0098, BTS, L3890.6100, L501.9985, L509.8000, L3890.6005, L509.4005, L100.0100 ####[facility] [address] [place], [address](232) Platelets (Bld) [#/Vol] 210 10*3/uL Normal 150-450 [facility] Comment on above: Performed By: #### L 3890.6300, L900.0098, BTS, L3890.6100, L501.9985, L509.8000, L3890.6005, L509.4005, L100.0100 ####[facility] [address] [place], [address](366) RBC (Bld) [#/Vol] 4.30 10*6/uL Normal 4.2-5.4 [facility] Comment on above: Performed By: #### L 3890.6300, L900.0098, BTS, L3890.6100, L501.9985, L509.8000, L3890.6005, L509.4005, L100.0100 ####[facility] [address] [place], [address] RDW SD 39.5 fl Normal 35.1-43.9 [facility] Comment on above: Performed By: #### L 3890.6300, L900.0098, BTS, L3890.6100, L501.9985, L509.8000, L3890.6005, L509.4005, L100.0100 ####[facility] [address] [place], [place], [address] WBC (Bld) [#/Vol] 6.0 10*3/uL Normal 4.4-11.0 [facility] Comment on above: Performed By: #### L 3890.6300, L900.0098, BTS, L3890.6100, L501.9985, L509.8000, L3890.6005, L509.4005, L100.0100 ####[facility] [address] [facility] [place], [address] Determination of erythrocyte mean corpuscular volume (MCV)Ordered By: Marianne Fraire on 12-24-2023 MCV (RBC) [Entitic vol] 89.8 fL 81-99 [facility] Erythrocyte distribution wid th ratioOrdered By: Marianne Fraire on 12-24-2023 Erythrocyte distribution width (RBC) [Ratio] 12.3 % 11.6-14.6 [facility] Erythrocyte distribution wid th standard deviationOrdered By: Marianne Fraire on 12-24-2023 Erythrocyte distribution width (RBC) [Entitic vol] 39.5 fL 35.1-43.9 [facility] HIV - WCHon 12-24-2023 HIV Non-Reactive Normal Nonreactive [facility] Comment on above: Order Comment: Reaso n for Exam: Performed By: #### L 3890.6300, L900.0098, BTS, L3890.6100, L501.9985, L509.8000, L3890.6005, L509.4005, L100.0100 ####[facility] [address] [place], [address] HIV 1 and HIV-2 antibody ass ay with HIV-1 p24 antigen detectionOrdered By: Marianne Fraire on 12-24-2023 HIV 1+2 Ab+HIV1 p24 Ag IA Ql Non-Reactive Nonreactive [facility] Hematocrit Auto (Bld) [Volum e fraction]Ordered By: Marianne Fraire on 12-24-2023 Hematocrit (Bld) [Volume fraction] 38.6 % 37-47 [facility] Hemoglobin A1con 12-24-2023 HbA1c (Bld) [Mass fraction] 5.1 % Normal 3.8-5.6 [facility] Comment on above: Result Comment: Norm al < 5.7 % Prediabetic 5.7 - 6.4 % Diabetic >or= 6.5 % Please note range changes. Performed By: #### L 3890.6300, L900.0098, BTS, L3890.6100, L501.9985, L509.8000, L3890.6005, L509.4005, L100.0100 ####[facility] [address] [place], [place], [address] Hepatitis B Surface Antigeno n 12-24-2023 HEP B Surf Ag Non-Reactive Normal Nonreactive [facility] Comment on above: Order Comment: Reaso n for Exam: Performed By: #### L 3890.6300, L900.0098, BTS, L3890.6100, L501.9985, L509.8000, L3890.6005, L509.4005, L100.0100 ####[facility] [address] [place], [place], [address] Hepatitis C Antibodyon 12-23 Hepatitis C AB Non-Reactive Normal Nonreactive [facility] Comment on above: Order Comment: Reaso n for Exam: Result Comment: Non Reactive: < 0.8 Equivocal: >/= 0.8 to < 1.0 Reactive: >/= 1.0The CDC requires that a reactive/equivocal HCV antibodyresult be sent out for confirmation. HCV Quant by PCRtesting. Performed By: #### L 3890.6300, L900.0098, BTS, L3890.6100, L501.9985, L509.8000, L3890.6005, L509.4005, L100.0100 ####[facility] [address] [place], [place], [address] Immature granulocytes/100 WB C Auto (Bld)Ordered By: Marianne Fraire on 12-24-2023 Immature granulocytes/100 WBC (Bld) 0.300 % 0.0-0.9 [facility] Comment on above: IG% - Immature Granu locytes (promyelocytes, myelocytes and metamyelocytes) > 1% indicates that a LEFT SHIFT is Present. L509.8000on 12-24-2023 Syphilis Abs Non-Reactive Normal [facility] Comment on above: Order Comment: Jodieo marycarmen for Exam: Performed By: #### L 3890.6300, L900.0098, BTS, L3890.6100, L501.9985, L509.8000, L3890.6005, L509.4005, L100.0100 ####[facility] [address] [place], [place], [id number] Laboratory - Hematology and Cell countsOrdered By: Marianne Fraire on 12-24-2023 MCH (RBC) [Entitic mass] 29.8 pg 27.0-32.0 [facility] MCHC (RBC) [Mass/Vol] 33.2 g/dL 32-36 [facility] Nucleated RBC/100 WBC (Bld) [Ratio] 0 % 0-5 [facility] Platelet mean volume (Bld) [Entitic vol] 9.9 fL 6.2-12.0 [facility] Platelets (Bld) [#/Vol] 210 10*3/uL 150-450 [facility] NATERAon 12-24-2023 NATURA SEE SCANNED REPORT Normal [facility] Comment on above: Performed By: #### L 3890.6300, L900.0098, BTS, L3890.6100, L501.9985, L509.8000, L3890.6005, L509.4005, L100.0100 ####[facility] [address] [place], [place], [address] No Panel InformationOrdered By: Marianne Fraire on 12-24-2023 Hepatitis B Surface Antigen Non-Reactive Nonreactive [facility] Hepatitis C Antibody Non-Reactive Nonreactive [facility] Comment on above: Non Reactive: < 0.8 Equivocal: >/= 0.8 to < 1.0 Reactive: >/= 1.0The CDC requires that a reactive/equivocal HCV antibody result be sent out for confirmation. HCV Quant by PCR testing. Miscellaneous Test Comment SEE SCANNED REPORT [facility] Rubella IgG Antibody Reactive Nonreactive [facility] Comment on above: Antibody Results Int erpretation of Immune Status Non Reactive Presumed Non-Immune Equivocal Equivocal Reactive Presumed Immune Lithography Contact Worker Office Visit Reporton 12-24-2023 Lithography Contact Worker Office Visit Report Normal [facility] RBC Auto (Bld) [#/Vol]Ordere d By: Marianne Fraire on 12-24-2023 RBC (Bld) [#/Vol] 4.30 10*6/uL 4.2-5.4 [facility] Rubella IgGon 12-24-2023 Rubella IgG Reactive Normal Nonreactive [facility] Comment on above: Order Comment: Reaso n for Exam: Result Comment: Anti body Results Interpretation of Immune Status Non Reactive Presumed Non-Immune Equivocal Equivocal Reactive Presumed Immune Performed By: #### L 3890.6300, L900.0098, BTS, L3890.6100, L501.9985, L509.8000, L3890.6005, L509.4005, L100.0100 ####[facility] [address] [place], [place], [address] Serum Treponema species anti body detectionOrdered By: Marianne Fraire on 12-24-2023 Treponema sp Ab Ql (S) Non-Reactive [facility] Type AND Screenon 12-24-2023 ABO and Rh group Nom (Bld) Blood group O Rh(D) negative Normal [facility] Comment on above: Order Comment: PN Performed By: #### L 3890.6300, L900.0098, BTS, L3890.6100, L501.9985, L509.8000, L3890.6005, L509.4005, L100.0100 ####[facility] [address] [place], [address] Whole blood hemoglobin A1c/t otal hemoglobin ratio (mass fraction)Ordered By: Marianne Fraire on 12-24-2023 HbA1c (Bld) [Mass fraction] 5.1 % 3.8-5.6 [facility] Comment on above: Normal < 5.7 % Predi abetic 5.7 - 6.4 % Diabetic >or= 6.5 % Please note range changes. Laboratory - Chemistry and C hemistry - challengeon 12-10-2023 Glucose Ql (U) Negative [facility] Laboratory - Urinalysison Protein Ql (U) Negative [facility] Lithography Contact Worker Office Visit Reporton 12-10-2023 Lithography Contact Worker Office Visit Report Normal [facility] Chlamydia/GC SONA aptimaon CHLAMY,NUC ACID Negative Normal Negative [facility] Comment on above: Performed By: #### L 7000.1800, ####[facility] [address] [place], [address] GC BY NUC ACID Negative Normal Negative [facility] Comment on above: Result Comment: Perf ormed at: =G - [facility] [address] [id number] Director: Shilpi Geller MD, Phone: [phone] Performed By: #### L 7000.1800, ####[facility] [address] [place], [address] Urine Cultureon 12-03-2023 URC Normal [facility] Comment on above: Performed By: #### L 7000.1800, M10 ####[facility] [address] [place], [address] Chlamydia trachomatis rRNA d etection by probe and target amplification methodOrdered By: Marianne Fraire on 11-30-2023 C. trachomatis rRNA SONA+probe Ql (Unsp spec) Negative Negative [facility] Culture, urineOrdered By: Reza Fraire on 11-30-2023 Bacteria identified Cx Nom (U) Streptococcus agalactiae (B) [facility] Bacteria identified Cx Nom (U) Positive [facility] Bacteria identified Cx Nom (U) Streptococcus agalactiae (B) [facility] Bacteria identified Cx Nom (U) Positive [facility] Laboratory - Microbiology an d Antimicrobial susceptibilityOrdered By: Marianne Fraire on 11-30-2023 N. gonorrhoeae DNA SONA+probe Ql (Unsp spec) Negative Negative [facility] Comment on above: Performed at: =[address] [id number] Director: Shilpi Geller MD, Phone: [phone] Lithography Contact Worker Office Visit Reporton 11-30-2023 Lithography Contact Worker Office Visit Report Normal [facility] Transvaginal w/Preg USon Transvaginal w/Preg US Normal [facility] Gastric Emptying Studyon Gastric Emptying Study Normal [facility] MRI CERVICAL SPINE WO IVCONo n 08-04-2023 MRI CERVICAL SPINE WO IVCON * * *Final Report* * * DATE OF EXAM: Aug 04 2023 2:50PM [facility] 0297 - MRI CERVICAL SPINE WO IVCON [...] vertebrae with counting from the craniocervical junction. Direct Support Worker: PSC[employer] Transcribe Date/Time: Aug 04 2023 2:57P Dictated by : HAVEN NICHOLS MD This examination was interpreted and the report reviewed and electronically signed by: HAVEN NICHOLS MD on Aug 04 2023 2:59PM EST [id number] CN [facility] Chocolate RASTOrdered By: iRya Smith on 03-07-2023 Chocolate IgE Qn (S) <0.10 kU/L Class 0 [facility] Comment on above: Performed at: [address] [id number] Director: Jv Carver MD, Phone: [phone] Laboratory - Miscellaneous t estsOrdered By: Angy Smith on 03-07-2023 Service comment (Unsp spec) [Interp] Comment . [facility] Comment on above: Levels of Specific I gE Class Description of Class ----- < 0.10 0 Negative 0.10 - 0.31 0/I Equivocal/Low 0.32 - 0.55 I Low 0.56 - 1.40 II Moderate 1.41 - 3.90 III High 3.91 - 19.00 IV Very High 19.01 - 100.00 V Very High >100.00 Very High No Panel InformationOrdered By: Angy Smith on 03-07-2023 Seafood Group Allergens (RAST) Negative . [facility] Comment on above: Allergens in this mi x are: Blue mussel Fish [place] Shrimp Tuna Serum beef IgE antibody assa y (units/volume)Ordered By: Angy Smith on 03-07-2023 Beef IgE Qn (S) <0.10 kU/L Class 0 [facility] [facility] Serum corn IgE antibody assa y (units/volume)Ordered By: Angy Smith on 03-07-2023 [place] IgE Qn (S) <0.10 kU/L Class 0 [facility] Serum cow milk IgE antibody assay (units/volume)Ordered By: Angy Smith on 03-07-2023 Cow milk IgE Qn (S) <0.10 kU/L Class 0 [facility] Serum peanut IgE antibody as say (units/volume)Ordered By: Angy Smith on 03-07-2023 Peanut IgE Qn (S) <0.10 kU/L Class 0 [facility] Serum pork IgE antibody assa y (units/volume)Ordered By: Angy Smith on 03-07-2023 Pork IgE Qn (S) <0.10 kU/L Class 0 [facility] Serum soybean IgE antibody a ssay (units/volume)Ordered By: Angy Smith on 03-07-2023 Soybean IgE Qn (S) <0.10 kU/L Class 0 [facility] Serum wheat IgE antibody ass ay (units/volume)Ordered By: Angy Smith on 03-07-2023 Wheat IgE Qn (S) <0.10 kU/L Class 0 [facility] Serum whole egg IgE antibody assay (units/volume)Ordered By: Angy Smith on 03-07-2023 Whole Egg IgE Qn (S) <0.10 kU/L Class 0 [facility] Basophil percentageOrdered B y: [facility] on [facility]-21-2023 Bilirubin [Mass/Vol] 0.40 mg/dL 0.20-1.00 [facility] Comment on above: For patients on eltr ombopag therapy, use of Dimension [place] TBIL is not recommended. Chloride [Moles/Vol] 110 mmol/L 98-107 [facility] Cholesterol [Mass/Vol] 134 mg/dL <200 [facility] Comment on above: <200 mg/dL Desirable 200-240 mg/dL Borderline >240 mg/dL High Risk Glucose [Mass/Vol] 92 mg/dL 74-106 [facility] Potassium [Moles/Vol] 4.3 mmol/L 3.5-5.1 [facility] Protein [Mass/Vol] 6.9 g/dL 6.4-8.2 [facility] Sodium [Moles/Vol] 141 mmol/L 136-145 [facility] Triglyceride [Mass/Vol] 106 mg/dL <199 [facility] Comment on above: The drugs N-Acetylcy steine and Metamizole may falsely depress this assay.Serum Triglycerides Reference Interval Normal <150 mg/dL Borderline high 150 - 199 mg/dL High 200 - 499 mg/dL Very High > or = 500 mg/dL Laboratory - Chemistry and C hemistry - challengeOrdered By: Mei Hernandez on 02-21-2023 ALP [Catalytic activity/Vol] 47 U/L 45-117 [facility] ALT [Catalytic activity/Vol] 16 U/L 13-56 [facility] CO2 [Moles/Vol] 26.0 mmol/L 21.0-32.0 [facility] Globulin (S) [Mass/Vol] 3.4 g/dL 2.2-4.2 [facility] Urea nitrogen/Creatinine [Mass ratio] 17.6 mg/mg 10-20 [facility] No Panel InformationOrdered By: Mei Hernandez on 02-21-2023 Estimated GFR (MDRD) Amer 118 mL/min >60 [facility] Comment on above: GFR Calc Estimated GFR (MDRD) Non-Af Amer 98 mL/min >60 [facility] Comment on above: Non- GFR Calc Serum or plasma albumin cira urement (mass/volume)Ordered By: Mei Hernandez on 02-21-2023 Albumin [Mass/Vol] 3.5 g/dL 3.2-5.0 [facility] Serum or plasma albumin/glob ulin mass ratioOrdered By: Mei Hernandez on 02-21-2023 Albumin/Globulin [Mass ratio] 1.0 {ratio} 0.9-2.4 [facility] Serum or plasma calcium cira urement (mass/volume)Ordered By: Mei Hernandez on 02-21-2023 Calcium [Mass/Vol] 8.8 mg/dL 8.5-10.1 [facility] Serum or plasma cholesterol in HDL measurement (mass/volume)Ordered By: Mei Hernandez on 02-21-2023 Cholesterol in HDL [Mass/Vol] 36 mg/dL >40 [facility] Comment on above: The drugs N-Acetylcy steine and Metamizole may falsely depress this assay. Reference Range HDL <40 mg/dL Low HDL Cholesterol HDL >or= 60 mg/dL High HDL Cholesterol Serum or plasma cholesterol in VLDL measurement (mass/volume)Ordered By: Mei Hernandez on 02-21-2023 Cholesterol in VLDL [Mass/Vol] 21 mg/dL 5-40 [facility] Serum or plasma creatinine m easurement (mass/volume)Ordered By: Mei Hernandez on 02-21-2023 Creatinine [Mass/Vol] 0.74 mg/dL 0.55-1.02 [facility] Comment on above: The validity of the calculated GFR & GFRAA in patients over 70 years has not been determined. Clinical correlation is essential. Serum or plasma low density lipoprotein (LDL) cholesterol measurement (mass/volume)Ordered By: Mei Hernandez on 02-21-2023 Cholesterol in LDL [Mass/Vol] 77 mg/dL 0-130 [facility] Serum or plasma urea nitroge n measurement (mass/volume)Ordered By: Mei Hernandez on 02-21-2023 Urea nitrogen [Mass/Vol] 13 mg/dL 7-18 [facility] Thin prep Papanicolaou smear with manual screeningOrdered By: Mei Hernandez on 02-21-2023 Thin prep Papanicolaou smear with manual screening 11 U/L 15-37 [facility] Thin prep Papanicolaou smear with manual screening 5 5-15 [facility] US FEMALE PELVIS TRANSVAGon 02-21-2023 [facility] Laboratory - Chemistry and C hemistry - challengeOrdered By: Dr. Varela on 02-19-2023 HCG ( test) Ql (U) Negative [facility] Comment on above: Very dilute urine sp ecimens, as indicated by a low specificgravity, may not contain ambulatory service representative levels of hCG. If is still suspected, a first morning urinespecimen should be collected 48 hours later and tested. STREP A MOLECULAR (POC)on Procedural Control Valid [facility] Strep A (POCT) Negative Negative [facility] PELVIC US WHIon 08-01-2022 [facility] STREP A MOLECULAR (POC)on Procedural Control Valid [facility] Strep A (POCT) Negative Negative [facility] XR CHEST 2V FRONTAL/LATon [facility] XR Chest PA and Lateralon IMPRESSION: No acute radiographic abnormality. Direct Support Worker: PSCB Transcribe Date/Time: May 10 2022 8:16A Dictated by : ROME DARBY MD This examination was interpreted and the report reviewed and electronically signed by: ROME DARBY MD on May 10 2022 8:17AM EST [email or web address]_U _DIVISION OF RADIOLOGY * * *Final Report* * [...] cardiomediastinal silhouette. Bones and soft tissues: Unremarkable. [email or web address]_U _DIVISION OF RADIOLOGY Provider, [facility] [place] - 05/10/2022 * * *Final Report* * [...] Unremarkable. IMPRESSION IMPRESSION: No acute radiographic abnormality. Direct Support Worker: PSCB Transcribe Date/Time: May 10 2022 8:16A Dictated by : ROME DARBY MD This examination was interpreted and the report reviewed and electronically signed by: ROME DARBY MD on May 10 2022 8:17AM EST [facility] Radiology Study observation (narrative) Kenny renae [facility] XR Chest PA and LateralOrder ed By: Ccf Provider on 05-10-2022 [facility] Basophil percentageon 2021 Bilirubin [Mass/Vol] 0.40 mg/dL 0.20-1.00 [facility] Work Phone: Comment on above: For patients on eltr ombopag therapy, use of Dimension [place] TBIL is not recommended. Chloride [Moles/Vol] 105 mmol/L 98-107 [facility] Work Phone: Cholesterol [Mass/Vol] 164 mg/dL <200 [facility] Work Phone: Comment on above: <200 mg/dL Desirable 200-240 mg/dL Borderline >240 mg/dL High Risk Glucose [Mass/Vol] 85 mg/dL 74-106 [facility] Work Phone: Potassium [Moles/Vol] 4.3 mmol/L 3.5-5.1 [facility] Work Phone: Protein [Mass/Vol] 7.6 g/dL 6.4-8.2 [facility] Work Phone: Sodium [Moles/Vol] 137 mmol/L 136-145 [facility] Work Phone: Triglyceride [Mass/Vol] 106 mg/dL [facility] Work Phone: Comment on above: The drugs N-Acetylcy steine and Metamizole may falsely depress this assay.Serum Triglycerides Reference Interval Normal <150 mg/dL Borderline high 150 - 199 mg/dL High 200 - 499 mg/dL Very High > or = 500 mg/dL Laboratory - Chemistry and C hemistry - challengeon 02-24-2022 ALP [Catalytic activity/Vol] 51 U/L 45-117 [facility] Work Phone: [phone] ALT [Catalytic activity/Vol] 19 U/L 13-56 [facility] Work Phone: [phone] CO2 [Moles/Vol] 27.0 mmol/L 21.0-32.0 [facility] Work Phone: [phone] Globulin (S) [Mass/Vol] 3.5 g/dL 2.2-4.2 [facility] Work Phone: [phone] Urea nitrogen/Creatinine [Mass ratio] 17.2 mg/mg 10-20 [facility] Work Phone: [phone] No Panel Informationon 02-24 Estimated GFR (MDRD) Amer 115 mL/min >60 [facility] Work Phone: Comment on above: GFR Calc Estimated GFR (MDRD) Non-Af Amer 95 mL/min >60 [facility] Work Phone: [phone] Comment on above: Non- GFR Calc Serum or plasma albumin cira urement (mass/volume)on 02-24-2022 Albumin [Mass/Vol] 4.1 g/dL 3.2-5.0 [facility] Work Phone: [phone] Serum or plasma albumin/glob ulin mass ratioon 02-24-2022 Albumin/Globulin [Mass ratio] 1.2 {ratio} 0.9-2.4 [facility] Work Phone: [phone] Serum or plasma calcium cira urement (mass/volume)on 02-24-2022 Calcium [Mass/Vol] 9.0 mg/dL 8.5-10.1 [facility] Work Phone: [phone] Serum or plasma cholesterol in HDL measurement (mass/volume)on 02-24-2022 Cholesterol in HDL [Mass/Vol] 40 mg/dL [facility] Work Phone: [phone] Comment on above: The drugs N-Acetylcy steine and Metamizole may falsely depress this assay. Reference Range HDL <40 mg/dL Low HDL Cholesterol HDL >or= 60 mg/dL High HDL Cholesterol Serum or plasma cholesterol in VLDL measurement (mass/volume)on 02-24-2022 Cholesterol in VLDL [Mass/Vol] 21 mg/dL 5-40 [facility] Work Phone: Serum or plasma creatinine m easurement (mass/volume)on 02-24-2022 Creatinine [Mass/Vol] 0.76 mg/dL 0.55-1.02 [facility] Work Phone: Comment on above: The validity of the calculated GFR & GFRAA in patients over 70 years has not been determined. Clinical correlation is essential. Serum or plasma low density lipoprotein (LDL) cholesterol measurement (mass/volume)on 02-24-2022 Cholesterol in LDL [Mass/Vol] 103 mg/dL 0-130 [facility] Work Phone: Serum or plasma urea nitroge n measurement (mass/volume)on 02-24-2022 Urea nitrogen [Mass/Vol] 13 mg/dL 7-18 [facility] Work Phone: Thin prep Papanicolaou smear with manual screeningon 02-24-2022 Thin prep Papanicolaou smear with manual screening 14 U/L 15-37 [facility] Work Phone: Thin prep Papanicolaou smear with manual screening 5 5-15 [facility] Work Phone: CNOVon 10-04-2021 CNOV Office Visit (AGGBRCR) WILLIS GAUTAM ([id number]) 1990 F Date Time Provider Department 10/04/21 9:45 AM ANASTASIYA ROUSE AGGBRCR During your visit today, we recorded the [...] 10/04/2021 10:17 AM Signed Anastasiya Rouse MD Breast [facility] [address] [place] [address] SUBJECTIVE Chief Complaint: Patient presents with: Breast [...] 0.5 tablets by mouth once daily. Current Facility-Administere d Medications Medication Dose Route Frequency - acetylcholine 10% solution - cchs compounding 20 mL IRRIGATION ONE TIME OBJECTIVE BP 126/62 Pulse 76 Ht 172.7 cm (5' 8) Wt 93 kg (205 lb) LMP 09/26/2021 [...] of l (more content not included)... Normal [facility] Laboratory - Chemistry and C hemistry - challengeon 07-27-2020 Albumin [Mass/Vol] 3.9 g/dL Normal 3.5 - 5.0 g/dL [facility], [facility].; [employer] [facility] [employer] Albumin/Globulin [Mass ratio] 1.1 {ratio} Normal [facility], [facility].; [place] [employer] [facility], [employer]. ALP [Catalytic activity/Vol] 56 U/L Normal 50 - 136 U/L [facility], [facility].; [employer] Alpha tocopherol [Mass/Vol] 10.2 Normal [facility], [facility].; [employer] ALT [Catalytic activity/Vol] 20 mmol/L Normal 12 - 49 mmol/L [facility], [facility].; [place] [employer] AST [Catalytic activity/Vol] 15 U/L Normal 15 - 37 U/L [facility], [facility].; [employer], [employer]. Bilirubin [Mass/Vol] 0.50 mg/dL Normal 0.3 - 1 .0 mg/dL [facility], [facility].; [employer], [employer]. Calcium [Mass/Vol] 8.8 mg/dL Normal 8.4 - 10. 6 mg/dL [place] [employer] [facility], [facility].; [employer], [employer]. Chloride [Moles/Vol] 107 mmol/L Normal 98 - 11 0 mmol/L [facility], [facility].; [employer], [employer]. Cholesterol [Mass/Vol] 146 mg/dL Normal 0 - 200 mg/dL [place] [employer] [facility], [facility].; [employer] Cholesterol in HDL [Mass/Vol] 46 mg/dL Normal 40 - 60 mg/dL [place] [employer] [facility], [facility].; [employer], [employer]. Cholesterol in LDL [Mass/Vol] 81 mg/dL Normal 50.0 - 130.0 mg/dL [place] [employer] [facility], [facility].; [employer] Cholesterol in VLDL [Mass/Vol] 19 mg/dL Normal [place] [employer] [facility], [facility].; [place] [employer], [employer]. Cholesterol.total/Choles terol in HDL [Mass ratio] - Normal 0 - 5.0 [facility], [facility].; [facility] CO2 [Moles/Vol] 25.0 {emmett/L} Normal 22.0 - 32.0 {emmett/L} [facility]; [facility] Creatinine [Mass/Vol] 0.81 mg/dL Normal 0.6 - 1.4 mg/dL [facility]; [facility] Cryoglobulin 1 day cold incubation Ql (S) Not detected Normal [facility]; [facility] Globulin (S) [Mass/Vol] 3.7 g/dL Normal 1.5 - 3.8 g/ dL [facility]; [facility] Glucose [Mass/Vol] 89 mg/dL Normal 75 - 105 mg/dL [facility]; [facility] Potassium [Moles/Vol] 4.0 mmol/L Normal 3.50 - 5.00 meq/L [facility]; [facility] Protein [Mass/Vol] 7.6 g/dL Normal 6.4 - 8.2 g/dL [facility]; [facility] Sodium [Moles/Vol] 138 mmol/L Normal 136 - 145 mmol/L [facility]; [facility] Triglyceride [Mass/Vol] 96 mg/dL Normal 40 - 150 mg/ dL [facility]; [facility] Urea nitrogen [Mass/Vol] 7 mg/dL Normal 7.0 - 20.0 mg/dL [facility]; [facility] Urea nitrogen/Creatinine [Mass ratio] 8.7 mg/mg Normal 0 - 30 [facility]; [facility] Laboratory - Serology - non- microon 07-27-2020 Nuclear Ab (Body fld) [Titer] Positive Normal 0 - 1 [facility]; [facility] No Panel Informationon 07-27 GFR 89 Normal [facility]; [facility] GFR2 108 Normal [facility]; [facility] BILon 020 [facility] * * *Final Report* * * DATE OF EXAM: Nov 12 2019 11:11AM AAW [id number] - [facility] / PROCEDURE REASON: Left breast abscess * * * * Physician Interpretation * * * * #[id number] - [facility] #[id number] - [facility] US BREAST LTD LT BILATERAL DIGITAL DIAGNOSTIC [...] Health, Family Medicine, and Medical/Surgical Oncology, the [facility] has carefully reviewed the data and [...] their providers when to stop screening mammograms. Item Repair Manager(s): Tana Davenport, RT(R)(M), [facility]; Sulema Hirsch RT, [facility] OVERALL STUDY BIRADS: 3 Probably benign finding - short term interval follow-up recommended Direct Support Worker: Ghulam Transcribe Date/Time: Nov 12 2019 10:43A Dictated by : LLOYD KAY MD This examination was interpreted and the report reviewed and electronically signed by: LLOYD KAY MD on Nov 12 2019 12:21PM EST Normal [facility] [employer] US BREAST LTD LTon 11-12 [employer] BREAST LTD LT * * *Final Report* * * DATE OF EXAM: Nov 12 2019 11:47AM AAW [id number] - [employer] BREAST LTD LT / PROCEDURE REASON: Left breast abscess * * * * Physician Interpretation * * * * #[id number] - [facility] #[id number] - [employer] BREAST LTD LT BILATERAL DIGITAL DIAGNOSTIC MAMMOGRAM [...] Health, Family Medicine, and Medical/Surgical Oncology, the [facility] has carefully reviewed the data and [...] their providers when to stop screening mammograms. Item Repair Manager(s): Tana Davenport, RT(R)(M), [facility]; Sulema Hirsch, RT, [facility] OVERALL STUDY BIRADS: 3 Probably benign finding - short term interval follow-up recommended Direct Support Worker: Ghulam Transcribe Date/Time: Nov 12 2019 10:43A Dictated by : LLOYD KAY MD This examination was interpreted and the report reviewed and electronically signed by: LLOYD KAY MD on Nov 12 2019 12:21PM EST Normal [facility] Laboratory - Chemistry and C hemistry - challengeon 08-29-2018 Cholesterol [Mass/Vol] 131 mg/dL Normal 0 - 2 00.0 mg/dL [facility], [facility].; [facility] Cholesterol in HDL [Mass/Vol] 36 mg/dL Normal 30.0 - 40.0 mg/dL [facility], [facility].; [employer] Cholesterol in LDL [Mass/Vol] 82 mg/dL Normal 50.0 - 130.0 mg/dL [facility], [facility].; [employer] [facility] Cholesterol non HDL [Mass/Vol] 94 mg/dL Normal [place] [employer] [facility], [facility].; [employer] [facility] Cholesterol.total/Choles terol in HDL [Mass ratio] - Normal 0 - 5.0 [facility], [facility].; [employer] Glucose Glucometer (BldC) [Moles/Vol] 84 Normal 60 - 120 [facility], [facility].; [employer] Triglyceride [Mass/Vol] 61 mg/dL Normal 40 - 150 mg/ dL [employer] [facility], [facility].; [employer] Laboratory - Chemistry and C hemistry - challengeon 05-22-2018 CRP [Mass/Vol] 0.5 mg/L Normal [place] [employer] Laboratory - Hematology and Cell countson 05-22-2018 ESR (Bld) [Velocity] 9 mm/h Normal 0 - 20 [facility]/h [facility].; [place] [employer], [employer] Laboratory - Serology - non- microon 05-22-2018 Nuclear Ab IF (S) [Titer] 1:320 Abnormal [facility] [employer] [place] [employer] Nuclear Ab pattern IF (S) [Interp] Normal [place] [employer] [facility].; [employer]. Rheumatoid factor Qn [IU]/mL Normal [facility] [employer] [facility].; [employer], [employer]. Laboratory - Chemistry and C hemistry - challengeon 12-28-2016 25-hydroxyvitamin D3 [Mass/Vol] 28 ng/mL Abnormal 30 - 100 ng/mL [facility].; [place] [employer], [employer]. Free T3 [Mass/Vol] 2.4 pg/mL Normal 2.3 - 4.2 pg/mL [facility].; [place] [employer], [employer]. Free T4 [Mass/Vol] 1.0 ng/dL Normal 0.8 - 1.8 ng/dL [place] [employer] [facility].; [place] [employer], [employer]. TSH Qn 0.82 m[IU]/L Normal 0.40 - 4.50 {mIU/L} [facility].; [place] [employer], [employer]. Laboratory - Hematology and Cell countson 12-28-2016 Basophils (Bld) [#/Vol] 20 {Cells}/uL Normal 0 - 200 {Cells}/uL [place] [employer] [place] [employer], [employer]. Basophils/100 WBC (Bld) 1 % Normal 0 - 1 % H [facility].; [place] [employer], [employer]. Eosinophils (Bld) [#/Vol] 90 {Cells}/uL Normal 15 - 500 {Cells}/uL [place] [employer].; [employer], [employer]. Eosinophils/100 WBC (Bld) 2 % Normal 0 - 4 % [facility] [employer].; [employer] [facility]. Erythrocyte distribution width (RBC) [Ratio] 12.4 % Normal 11.0 - 15.0 % [facility].; [facility], [facility] Hematocrit (Bld) [Volume fraction] 40.6 % Normal 35.0 - 45.0 % [facility].; [facility], [facility] Hemoglobin (Bld) [Mass/Vol] 13.6 g/dL Normal 11.7 - 15.5 g/dL [facility].; [facility], [facility] Lymphocytes (Bld) [#/Vol] 1260 {Cells}/uL Normal 850 - 3900 {Cells}/uL [facility].; [facility], [facility]. Lymphocytes/100 WBC (Bld) 34 % Normal 12 - 47 % [facility].; [facility], [facility]. MCH (RBC) [Entitic mass] 30.1 pg Normal 27.0 - 33.0 PG [facility].; [facility], [facility]. MCHC (RBC) [Mass/Vol] 33.5 g/dL Normal 32.0 - 36.0 g/dL [facility].; [facility], [facility]. MCV (RBC) [Entitic vol] 89.8 fL Normal 80.0 - 100.0 fL [facility].; [facility], [facility]. Monocytes (Bld) [#/Vol] 330 {Cells}/uL Normal 20 0 - 950 {Cells}/uL [facility].; [facility], [facility]. Monocytes/100 WBC (Bld) 9 % Normal 4 - 12 % H [facility].; [facility], [facility]. Neutrophils (Bld) [#/Vol] 2060 {Cells}/uL Normal 1500 - 7800 {Cells}/uL [facility].; [facility], [facility]. Neutrophils/100 WBC (Bld) 55 % Normal 40 - 75 % [facility].; [place] [employer] [facility], [facility]. Platelet mean volume (Bld) [Entitic vol] 9.0 fL Normal 7.5 - 12.5 fL [facility].; [place] [employer], [facility]. Platelets (Bld) [#/Vol] 213 10*3/uL Normal 140 - 400 10*3/uL [facility].; [employer]. RBC (Bld) [#/Vol] 4.52 10*6/uL Normal 3.80 - 5.1 0 10*6/uL [place] [employer] [facility] [employer]. WBC (Bld) [#/Vol] 3.8 10*3/uL Normal 3.8 - 10.8 10*3/uL [place] [employer] [facility].; [employer] Laboratory - Microbiology an d Antimicrobial susceptibilityon 07-29-2015 FLUAV Ag IA Ql (Throat) Negative Normal [facility]; [employer]. Laboratory - Chemistry and C hemistry - challengeon 10-28-2014 Cobalamin (Vitamin B12) [Mass/Vol] 558 pg/mL Normal 200 - 1100 pg/mL [facility].; [employer]. Ferritin [Mass/Vol] 31 ng/mL Normal 10 - 154 ng/mL [facility]; [place] [employer] Folate [Mass/Vol] 18.5 ng/mL Normal [place] [employer] [facility]; [employer]. Iron [Mass/Vol] 87 ug/dL Normal 40 - 190 ug/dL [facility].; [employer]. Iron binding capacity [Mass/Vol] 341 ug/dL Normal 250 - 450 ug/dL [place] [employer] [facility].; [employer]. Iron saturation [Mass fraction] 26 % Normal 11 - 50 % [place] [employer] [facility].; [employer]. Laboratory - Chemistry and C hemistry - challengeon 06-29-2014 TSH Qn 0.67 m[IU]/L Normal 0.40 - 4.50 {mIU/L} [place] [employer]. Laboratory - Hematology and Cell countson 06-29-2014 Basophils (Bld) [#/Vol] 20 {Cells}/uL Normal 0 - 200 {Cells}/uL [place] [employer] [facility].; [employer]. Basophils/100 WBC (Bld) 0 % Normal H [facility].; [employer]. Eosinophils (Bld) [#/Vol] 290 {Cells}/uL Normal 15 - 500 {Cells}/uL [facility].; [place] [employer] [facility]. Eosinophils/100 WBC (Bld) 4 % Normal [facility].; [place] [employer] [facility], [facility]. Erythrocyte distribution width (RBC) [Ratio] 12.5 % Normal 11.0 - 15.0 % [facility].; [place] [employer] [facility], [facility]. Hematocrit (Bld) [Volume fraction] 40.0 % Normal 35.0 - 45.0 % [facility].; [place] [employer] [facility], [facility] Hemoglobin (Bld) [Mass/Vol] 13.4 g/dL Normal 11.7 - 15.5 g/dL [facility].; [facility], [facility] Lymphocytes (Bld) [#/Vol] 1070 {Cells}/uL Normal 850 - 3900 {Cells}/uL [facility].; [place] [employer], [facility]. Lymphocytes/100 WBC (Bld) 13 % Normal [facility].; [place] [employer] [facility]. MCH (RBC) [Entitic mass] 30.5 pg Normal 27.0 - 33.0 PG [facility].; [place] [employer], [facility]. MCHC (RBC) [Mass/Vol] 33.5 g/dL Normal 32.0 - 36.0 g/dL [facility], [facility].; [place] [employer], [facility]. MCV (RBC) [Entitic vol] 91.3 fL Normal 80.0 - 100.0 fL [facility].; [place] [employer] [facility], [facility]. Monocytes (Bld) [#/Vol] 460 {Cells}/uL Normal 20 0 - 950 {Cells}/uL [place] [employer] [facility].; [place] [employer], [facility]. Monocytes/100 WBC (Bld) 6 % Normal [facility].; [facility], [facility] Neutrophils (Bld) [#/Vol] 6450 {Cells}/uL Normal 1500 - 7800 {Cells}/uL [facility], [facility].; [place] [employer], [facility]. Neutrophils/100 WBC (Bld) 78 % Normal [facility].; [email or web address] Platelets (Bld) [#/Vol] 241 10*3/uL Normal 140 - 400 10*3/uL [email or web address].; [employer]. RBC (Bld) [#/Vol] 4.38 10*6/uL Normal 3.80 - 5.1 0 10*6/uL [email or web address].; [employer]. WBC (Bld) [#/Vol] 8.3 10*3/uL Normal 3.8 - 10.8 10*3/uL [email or web address]. Laboratory - Microbiology an d Antimicrobial susceptibilityon 06-16-2014 S. pyogenes Ag EIA Ql (Throat) Negative Normal [email or web address]. No Panel Informationon 06-16 MONOSPOT TEST (IN HOUSE) Negative Normal [email or web address]. Laboratory - Chemistry and C hemistry - challengeon 03-04-2013 Bilirubin Ql (U) Negative Normal [email or web address]. Ketones Ql (U) Negative Normal [employer].; [employer]. pH (U) 6.0 [pH] Normal [employer].; [employer]. Specific gravity (U) [Rel density] 1.010 Normal [employer].; [employer] Laboratory - Hematology and Cell countson 03-04-2013 Hemoglobin Ql (U) Moderate Abnormal [employer].; [employer]. Laboratory - Microbiology an d Antimicrobial susceptibilityon 03-04-2013 Bacteria identified Cx Nom (Unsp spec) SEE NOTE Abnormal [email or web address]. Laboratory - Specimen inform ationon 03-04-2013 Appearance (U) Cloudy Abnormal [email or web address]. Color (U) Yellow Normal [employer].; [employer]. Specimen source Nom (Unsp spec) URINE-Clean Catch Normal [email or web address].; [employer]. Laboratory - Urinalysison Glucose Test strip (U) [Mass/Vol] Negative Normal [facility].; [facility]. Leukocyte esterase Test strip Ql (U) Negative Normal [facility].; [place] [employer] [facility]. Nitrite Ql (U) Negative Normal [facility].; [place] [employer] [facility], [employer]. Protein Ql (U) Negative Normal [facility].; [place] [employer]. No Panel Informationon 03-04 UA - UROBILINOGEN 0.2 mg/dL Normal [facility].; [employer] [facility] Vital Signs Date Time Vital Sign Value Performing Clinician Facility 03-30-2025 07:21-0400 Body mass index (BMI) [Ratio] 32.95 kg/m2 Mike Mccarthy WORKERS COMPENSATION CLAIMS EXAMINER.[employer] Work Phone: [facility] 03-30-2025 07:21-0400 Body temperature 97.9 [degF] Mike Mccarthy WORKERS COMPENSATION CLAIMS EXAMINER.[employer] Work Phone: [facility] 03-30-2025 07:21-0400 Body weight 98.3 kg Mike Mccarthy WORKERS COMPENSATION CLAIMS EXAMINER.[employer] Work Phone: [facility] 03-30-2025 07:21-0400 Diastolic blood pressure 80 mm[Hg] Mike Mccarthy WORKERS COMPENSATION CLAIMS EXAMINER.[employer] Work Phone: [facility] 03-30-2025 07:21-0400 Heart rate 70 /min Mike Mccarthy WORKERS COMPENSATION CLAIMS EXAMINER.[employer] Work Phone: [facility] 03-30-2025 07:21-0400 Respiratory rate 18 /min Mike Mccarthy WORKERS COMPENSATION CLAIMS EXAMINER.[employer]ER Work Phone: [facility] 03-30-2025 07:21-0400 SaO2% (BldA) [Mass fraction] 97 % Mike Mccarthy WORKERS COMPENSATION CLAIMS EXAMINER.[employer]ZE [employer]ER Work Phone: [facility] 03-30-2025 07:21-0400 Systolic blood pressure 120 mm[Hg] Mike Mccarthy WORKERS COMPENSATION CLAIMS EXAMINER.[employer] Work Phone: [facility] 02-01-2025 08:13-0400 Body mass index (BMI) [Ratio] 32.52 kg/m2 Zurdo Swank WORKERS COMPENSATION CLAIMS EXAMINER.[employer]ER Work Phone: [facility] 02-01-2025 08:13-0400 Body temperature 99.1 [degF] Zurdo Swank WORKERS COMPENSATION CLAIMS EXAMINER.[employer] Work Phone: [facility] 02-01-2025 08:13-0400 Body weight 97 kg Zurdo Swank WORKERS COMPENSATION CLAIMS EXAMINER.[employer]ER Work Phone: [facility] 02-01-2025 08:13-0400 Diastolic blood pressure 75 mm[Hg] Zurdo Swank WORKERS COMPENSATION CLAIMS EXAMINER.[employer]ER Work Phone: [facility] 02-01-2025 08:13-0400 Heart rate 92 /min Zurdo Swank WORKERS COMPENSATION CLAIMS EXAMINER.[employer]ZE [employer]ER Work Phone: [facility] 02-01-2025 08:13-0400 Respiratory rate 18 /min Zurdo Swank WORKERS COMPENSATION CLAIMS EXAMINER.[employer]ZE [employer]ER Work Phone: [facility] 02-01-2025 08:13-0400 SaO2% (BldA) [Mass fraction] 97 % Zurdo Swank WORKERS COMPENSATION CLAIMS EXAMINER.[employer]ZE CAR[employer]ER Work Phone: [facility] 02-01-2025 08:13-0400 Systolic blood pressure 112 mm[Hg] Zurdo Swank WORKERS COMPENSATION CLAIMS EXAMINER.[employer]LAZE CAR[employer]ER Work Phone: [facility] 07-23-2024 15:17-0400 Body mass index (BMI) [Ratio] 31.27 kg/m2 Mike Pendlebury WORKERS COMPENSATION CLAIMS EXAMINER.[employer]ZE [employer]ER Work Phone: [facility] 07-23-2024 15:17-0400 Body temperature 99.7 [degF] Mike Pendlebury WORKERS COMPENSATION CLAIMS EXAMINER.[employer]ER Work Phone: [facility] 07-23-2024 15:17-0400 Body weight 93.3 kg Mike Pendlebury WORKERS COMPENSATION CLAIMS EXAMINER.[employer]ER Work Phone: [facility] 07-23-2024 15:17-0400 Diastolic blood pressure 64 mm[Hg] Mike Pendlebury WORKERS COMPENSATION CLAIMS EXAMINER.[employer]ER Work Phone: [facility] 07-23-2024 15:17-0400 Heart rate 102 /min Mike Mccarthy WORKERS COMPENSATION CLAIMS EXAMINER.[employer]ER Work Phone: [facility] 07-23-2024 15:17-0400 Respiratory rate 18 /min [facility] WORKERS COMPENSATION CLAIMS EXAMINER.G[employer]ZE CAR[employer]ER Work Phone: [facility] 07-23-2024 15:17-0400 SaO2% (BldA) [Mass fraction] 98 % Mike Mccarthy WORKERS COMPENSATION CLAIMS EXAMINER.[employer]ER Work Phone: [facility] 07-23-2024 15:17-0400 Systolic blood pressure 102 mm[Hg] Mike Mccarthy WORKERS COMPENSATION CLAIMS EXAMINER.[employer]ER Work Phone: [facility] 06-07-2024 12:13-0400 Body temperature 98.1 [degF] Iman Hernandezak DO Work Phone: [facility] [employer] 06-07-2024 12:13-0400 Diastolic blood pressure 66 mm[Hg] Iman Hernandezak DO Work Phone: [facility] [employer] 06-07-2024 12:13-0400 Heart rate 70 /min Iman Oracio DO Work Phone: [facility] [employer] 06-07-2024 12:13-0400 Respiratory rate 16 /min Iman Oracio DO Work Phone: [facility] [employer] 06-07-2024 12:13-0400 SaO2% (BldA) [Mass fraction] 99 % Iman Hernandezak DO Work Phone: [facility] [employer] 06-07-2024 12:13-0400 Systolic blood pressure 115 mm[Hg] Iman Oracio DO Work Phone: [facility] [employer] 06-06-2024 07:42-0400 Body height 172.7 cm Iman Hernandezak DO Work Phone: [facility] [employer] 06-06-2024 07:42-0400 Body mass index (BMI) [Ratio] 34.97 kg/m2 Iman Hernandezak DO Work Phone: [facility] 06-06-2024 07:42-0400 Body weight 104.33 kg Iman Narayanan DO Work Phone: [facility] 06-03-2024 13:06-0400 Body mass index (BMI) [Ratio] 36.37 kg/m2 Mary Herrera WORKERS COMPENSATION CLAIMS EXAMINER.[employer]ER Work Phone: [facility] 06-03-2024 13:06-0400 Body temperature 98.29 [degF] Mary Herrera WORKERS COMPENSATION CLAIMS EXAMINER.[employer]ER Work Phone: [facility] 06-03-2024 13:06-0400 Body weight 108.5 kg Mary Herrera WORKERS COMPENSATION CLAIMS EXAMINER.[employer]ER Work Phone: [facility] 06-03-2024 13:06-0400 Diastolic blood pressure 78 mm[Hg] Mary Herrera WORKERS COMPENSATION CLAIMS EXAMINER.[employer]ER Work Phone: [facility] 06-03-2024 13:06-0400 Heart rate 75 /min Mary Herrera WORKERS COMPENSATION CLAIMS EXAMINER.[employer]ER Work Phone: [facility] 06-03-2024 13:06-0400 Respiratory rate 16 /min Mary Herrera WORKERS COMPENSATION CLAIMS EXAMINER.[employer]ER Work Phone: [facility] 06-03-2024 13:06-0400 SaO2% (BldA) [Mass fraction] 99 % Mary Herrera WORKERS COMPENSATION CLAIMS EXAMINER.[employer]ER Work Phone: [facility] 06-03-2024 13:06-0400 Systolic blood pressure 122 mm[Hg] Mary Herrera WORKERS COMPENSATION CLAIMS EXAMINER.[employer]ER Work Phone: [facility] 01-14-2024 13:33-0400 Body temperature 98.49 [degF] Kylee Athy PA-C Work Phone: [facility] 01-14-2024 13:33-0400 Body weight 98.1 kg Kylee Athy PA-C Work Phone: [facility] 01-14-2024 13:33-0400 Diastolic blood pressure 82 mm[Hg] Kylee Athy PA-C Work Phone: [facility] 01-14-2024 13:33-0400 Heart rate 90 /min Kylee Athy PA-C Work Phone: [facility] 01-14-2024 13:33-0400 Respiratory rate 20 /min Kylee Athy PA-C Work Phone: [facility] 01-14-2024 13:33-0400 SaO2% (BldA) [Mass fraction] 98 % Kylee Athy PA-C Work Phone: [facility] 01-14-2024 13:33-0400 Systolic blood pressure 116 mm[Hg] Kylee Athy PA-C Work Phone: [facility] 12-24-2023 13:56-0400 Body height 170.18 cm PA-C [place] PA Work Phone: [facility] 12-24-2023 13:56-0400 Body mass index (BMI) [Ratio] 33.5 kg/m2 PA-C [place] PA Work Phone: [facility] 12-24-2023 13:56-0400 Body weight 97.29 kg PA-C [place] PA Work Phone: [facility] 12-24-2023 13:56-0400 Diastolic blood pressure 85 mm[Hg] PA-C [place] PA Work Phone: [facility] 12-24-2023 13:56-0400 Systolic blood pressure 129 mm[Hg] PA-C [place] PA Work Phone: [facility] 12-10-2023 15:30-0400 Body mass index (BMI) [Ratio] 33.7 kg/m2 PA-C [place] PA Work Phone: [facility] 12-10-2023 15:30-0400 Body weight 97.63 kg PA-C [place] PA Work Phone: [facility] 12-10-2023 15:30-0400 Diastolic blood pressure 84 mm[Hg] PA-C [place] PA Work Phone: [facility] 12-10-2023 15:30-0400 Systolic blood pressure 130 mm[Hg] PA-C [place] PA Work Phone: [facility] 11-30-2023 13:02-0500 Body height 170.18 cm PA-C [place] PA Work Phone: [facility] 11-30-2023 13:02-0500 Body mass index (BMI) [Ratio] 33.4 kg/m2 PA-C Mei [employer] [place] PA Work Phone: [facility] 11-30-2023 13:02-0500 Body weight 96.84 kg PA-C [place] PA Work Phone: [facility] 11-30-2023 13:02-0500 Diastolic blood pressure 85 mm[Hg] PA-C [employer] [place] PA Work Phone: [facility] 11-30-2023 13:02-0500 Systolic blood pressure 132 mm[Hg] PA-C [employer] [place] [employer] Work Phone: [facility] 07-20-2023 10:40-0400 Body weight 95.71 kg Danae Marc WORKERS COMPENSATION CLAIMS EXAMINER.CNM Work Phone: [facility] 07-20-2023 10:40-0400 Diastolic blood pressure 64 mm[Hg] Danae Lunats WORKERS COMPENSATION CLAIMS EXAMINER.CNM Work Phone: [facility] 07-20-2023 10:40-0400 Systolic blood pressure 118 mm[Hg] Danae Plotts WORKERS COMPENSATION CLAIMS EXAMINER.CNM Work Phone: [facility] 06-10-2023 09:05-0400 Body temperature 97.39 [degF] Mike Mccarthy WORKERS COMPENSATION CLAIMS EXAMINER.[employer]ER Work Phone: [facility] 06-10-2023 09:05-0400 Body weight 94.8 kg Mike Mccarthy WORKERS COMPENSATION CLAIMS EXAMINER.[employer]ER Work Phone: [facility] 06-10-2023 09:05-0400 Diastolic blood pressure 66 mm[Hg] [facility] WORKERS COMPENSATION CLAIMS EXAMINER.[employer]ER Work Phone: [facility] 06-10-2023 09:05-0400 Heart rate 90 /min [facility] WORKERS COMPENSATION CLAIMS EXAMINER.[employer]ER Work Phone: [facility] 06-10-2023 09:05-0400 Respiratory rate 16 /min [facility] WORKERS COMPENSATION CLAIMS EXAMINER.[employer]ER Work Phone: [facility] 06-10-2023 09:05-0400 SaO2% (BldA) [Mass fraction] 99 % [facility] WORKERS COMPENSATION CLAIMS EXAMINER.[employer] Work Phone: [facility] 06-10-2023 09:05-0400 Systolic blood pressure 102 mm[Hg] [facility] WORKERS COMPENSATION CLAIMS EXAMINER.[employer]ER Work Phone: [facility] 03-07-2023 08:04-0400 Body height 170.18 cm PA-C [employer] Work Phone: [facility] 03-07-2023 08:04-0400 Body mass index (BMI) [Ratio] 32.1 kg/m2 PA-C [employer] Work Phone: [facility] 03-07-2023 08:04-0400 Body weight 92.98 kg PA-C [employer] Work Phone: [facility] 03-07-2023 08:04-0400 Diastolic blood pressure 78 mm[Hg] PA-C [employer] Work Phone: [facility] 03-07-2023 08:04-0400 Heart rate 79 /min PA-C [employer] Work Phone: [facility] 03-07-2023 08:04-0400 SaO2% (BldA) [Mass fraction] 97 % PA-C [employer] Work Phone: [facility] 03-07-2023 08:04-0400 Systolic blood pressure 123 mm[Hg] PA-C [place] Work Phone: [facility] 02-19-2023 12:17-0400 Body temperature 97.6 [degF] PA-C [place] PA Work Phone: [facility] 02-19-2023 12:17-0400 Diastolic blood pressure 65 mm[Hg] PA-C [place] PA Work Phone: [facility] 02-19-2023 12:17-0400 Heart rate 60 /min PA-C [employer] Work Phone: [facility] 02-19-2023 12:17-0400 Respiratory rate 16 /min PA-C [place] Work Phone: [facility] 02-19-2023 12:17-0400 SaO2% (BldA) [Mass fraction] 99 % PA-C [place] Work Phone: [facility] 02-19-2023 12:17-0400 Systolic blood pressure 97 mm[Hg] PA-C [place] PA Work Phone: [facility] 02-19-2023 10:52-0400 Body height 170.18 cm PA-C [place] [employer] Work Phone: [facility] 02-19-2023 10:52-0400 Body mass index (BMI) [Ratio] 31.4 kg/m2 PA-C [employer] [place] [employer] Work Phone: [facility] 02-19-2023 10:52-0400 Body weight 91 kg PA-C [place] [place] [employer] Work Phone: [facility] 12-14-2022 08:40-0400 Body height 170.18 cm PA-C [place] [place] [employer] Work Phone: [facility] 12-14-2022 08:40-0400 Body mass index (BMI) [Ratio] 31.9 kg/m2 PA-C [employer] Work Phone: [facility] 12-14-2022 08:40-0400 Body weight 92.53 kg PA-C [employer] Work Phone: [facility] 12-14-2022 08:40-0400 Diastolic blood pressure 82 mm[Hg] PA-C [employer] Work Phone: [facility] 12-14-2022 08:40-0400 Heart rate 75 /min PA-C [employer] Work Phone: [facility] 12-14-2022 08:40-0400 SaO2% (BldA) [Mass fraction] 98 % PA-C [employer] Work Phone: [facility] 12-14-2022 08:40-0400 Systolic blood pressure 132 mm[Hg] PA-C [employer] Work Phone: [facility] 09-27-2022 19:33-0500 Body temperature 99 [degF] Mary Herrera WORKERS COMPENSATION CLAIMS EXAMINER.[employer] Work Phone: [facility] 09-27-2022 19:33-0500 Body weight 92.08 kg Mary Herrera WORKERS COMPENSATION CLAIMS EXAMINER.[employer]ER Work Phone: [facility] 09-27-2022 19:33-0500 Diastolic blood pressure 64 mm[Hg] Mary Herrera WORKERS COMPENSATION CLAIMS EXAMINER.[employer]ER Work Phone: [facility] 09-27-2022 19:33-0500 Heart rate 80 /min Mary Herrera WORKERS COMPENSATION CLAIMS EXAMINER.[employer]ER Work Phone: [facility] 09-27-2022 19:33-0500 Respiratory rate 16 /min Mary Herrera WORKERS COMPENSATION CLAIMS EXAMINER.[employer]ER Work Phone: [facility] 09-27-2022 19:33-0500 SaO2% (BldA) [Mass fraction] 99 % Mary Herrera WORKERS COMPENSATION CLAIMS EXAMINER.[employer]ER Work Phone: [facility] 09-27-2022 19:33-0500 Systolic blood pressure 110 mm[Hg] Mary Herrera WORKERS COMPENSATION CLAIMS EXAMINER.[employer]ER Work Phone: [facility] 09-10-2022 10:16-0500 Body temperature 99.5 [degF] [facility] WORKERS COMPENSATION CLAIMS EXAMINER.[employer]ER Work Phone: [facility] 09-10-2022 10:16-0500 Body weight 92.99 kg [facility] WORKERS COMPENSATION CLAIMS EXAMINER.[employer]ER Work Phone: [facility] 09-10-2022 10:16-0500 Diastolic blood pressure 62 mm[Hg] Mike Pendlebury WORKERS COMPENSATION CLAIMS EXAMINER.[employer]ER Work Phone: [facility] 09-10-2022 10:16-0500 Heart rate 96 /min Mike Pendlebury WORKERS COMPENSATION CLAIMS EXAMINER.[employer]ER Work Phone: [facility] 09-10-2022 10:16-0500 Respiratory rate 16 /min [facility] WORKERS COMPENSATION CLAIMS EXAMINER.[employer]ZE [employer]ER Work Phone: [facility] 09-10-2022 10:16-0500 SaO2% (BldA) [Mass fraction] 99 % [facility] WORKERS COMPENSATION CLAIMS EXAMINER.[employer]ER Work Phone: [facility] 09-10-2022 10:16-0500 Systolic blood pressure 110 mm[Hg] Mikeharsh Phelpsleleanna WORKERS COMPENSATION CLAIMS EXAMINER.[employer]ER Work Phone: [facility] 07-28-2022 10:57-0400 Body weight 94.17 kg Gerald Bernal MD Work Phone: [facility] 07-28-2022 10:57-0400 Diastolic blood pressure 70 mm[Hg] Gerald Bernal MD Work Phone: [facility] 07-28-2022 10:57-0400 Systolic blood pressure 116 mm[Hg] Gerald Bernal MD Work Phone: [facility] 05-10-2022 07:28-0400 Body temperature 98.2 [degF] Humera Bernal WORKERS COMPENSATION CLAIMS EXAMINER.[employer]ER Work Phone: [facility] 05-10-2022 07:28-0400 Body weight 93.35 kg Humera Bernal APRN.[employer]ER Work Phone: [facility] 05-10-2022 07:28-0400 Diastolic blood pressure 82 mm[Hg] Humera Bernal APRN.[employer]LAZE CARRIER Work Phone: [facility] 05-10-2022 07:28-0400 Heart rate 79 /min Humera Bernal APRN.[employer]LAZE CARRIER Work Phone: [facility] [facility] 05-10-2022 07:28-0400 Respiratory rate 21 /min Humera Bernal APRN.GLAZE CARRIER Work Phone: [facility] 05-10-2022 07:28-0400 SaO2% (BldA) [Mass fraction] 98 % Humera Bernal APRN.GLAZE CARRIER Work Phone: [facility] 05-10-2022 07:28-0400 Systolic blood pressure 120 mm[Hg] Humera Bernal APRN.GLAZE CARRIER Work Phone: [facility] 03-16-2022 16:02-0400 Body height 172.7 cm Oswaldo Bernal MD Work Phone: [facility] 03-16-2022 16:02-0400 Body weight 88.45 kg Oswaldo Bernal MD Work Phone: [facility] 03-16-2022 16:02-0400 Diastolic blood pressure 73 mm[Hg] Oswaldo Bernal MD Work Phone: [facility] 03-16-2022 16:02-0400 Heart rate 66 /min Oswaldo Bernal MD Work Phone: [facility] 03-16-2022 16:02-0400 Systolic blood pressure 119 mm[Hg] Oswaldo Bernal MD Work Phone: [facility] 06-23-2020 08:33-0400 Body height 175.26 cm Luis Roberts LPN [facility], [facility].; [facility]. 06-23-2020 08:33-0400 Body mass index (BMI) [Ratio] 28.35 kg/m2 Neilee L Vess MUNICIPAL SERVICES MANAGER [facility], [facility].; [place] [employer] [facility]. 06-23-2020 08:33-0400 Body surface area Derived from formula 2.03 m2 Neilee L Vess MUNICIPAL SERVICES MANAGER [facility], [facility].; [place] [employer], [facility]. 06-23-2020 08:33-0400 Body weight 87.09 kg Neilee L Vess MUNICIPAL SERVICES MANAGER [facility], [facility].; [employer] [facility]. 06-23-2020 08:33-0400 Diastolic blood pressure 77 mm[Hg] Neilee L Vess MUNICIPAL SERVICES MANAGER [facility], [facility].; [employer] Comment on above: Patient Position: Sitting; Cuff Location : Right Arm; Cuff Size: Standard 06-23-2020 08:33-0400 Heart rate 89 /min Neilee L Vess MUNICIPAL SERVICES MANAGER [facility], [facility].; [employer] Comment on above: Pattern: Regular 06-23-2020 08:33-0400 Systolic blood pressure 129 mm[Hg] Neilee L Vess MUNICIPAL SERVICES MANAGER [facility], [facility].; [employer]. Comment on above: Patient Position: Sitting; Cuff Location : Right Arm; Cuff Size: Standard 10-24-2019 14:48-0500 Body height 175.26 cm Yanique Day [facility] [employer] [facility], [facility].; [employer], [facility]. 10-24-2019 14:48-0500 Body mass index (BMI) [Ratio] 27.17 kg/m2 Yanique Day [facility] [employer] [facility], [facility].; [employer] [facility]. 10-24-2019 14:48-0500 Body surface area Derived from formula 1.99 m2 Yanique Day [facility] [employer] [facility], [facility].; [employer] [facility]. 10-24-2019 14:48-0500 Body weight 83.46 kg Yanique Day [facility] [employer] [facility], [facility].; [place] [employer], [facility]. 10-24-2019 14:48-0500 Diastolic blood pressure 75 mm[Hg] Yanique Day [facility] [employer] [facility], [facility].; [employer]. Comment on above: Patient Position: Sitting; Cuff Location : Left Arm; Cuff Size: Standard 10-24-2019 14:48-0500 Heart rate 80 /min Yanique Day MUNICIPAL SERVICES MANAGER [email or web address]. Comment on above: Pattern: Regular 10-24-2019 14:48-0500 Systolic blood pressure 118 mm[Hg] Yanique Day MUNICIPAL SERVICES MANAGER [employer]. Comment on above: Patient Position: Sitting; Cuff Location : Left Arm; Cuff Size: Standard 07-28-2019 14:26-0400 Body height 175.26 cm Neilee L Vess MUNICIPAL SERVICES MANAGER [email or web address]. 07-28-2019 14:26-0400 Body mass index (BMI) [Ratio] 29.68 kg/m2 Neilee L Vess MUNICIPAL SERVICES MANAGER [email or web address]. 07-28-2019 14:26-0400 Body surface area Derived from formula 2.07 m2 Neilee L Vess MUNICIPAL SERVICES MANAGER [employer]. 07-28-2019 14:26-0400 Body weight 91.17 kg Neilee L Vess MUNICIPAL SERVICES MANAGER [employer], [employer]. 07-28-2019 14:26-0400 Diastolic blood pressure 71 mm[Hg] Neilee L Vess MUNICIPAL SERVICES MANAGER [employer]. Comment on above: Patient Position: Sitting; Cuff Location : Right Arm; Cuff Size: Standard 07-28-2019 14:26-0400 Heart rate 73 /min Neilee L Vess MUNICIPAL SERVICES MANAGER [employer]. Comment on above: Pattern: Regular 07-28-2019 14:26-0400 Systolic blood pressure 118 mm[Hg] Neilee L Vess MUNICIPAL SERVICES MANAGER [employer]. Comment on above: Patient Position: Sitting; Cuff Location : Right Arm; Cuff Size: Standard 05-15-2019 09:12-0400 Body height 175.26 cm Neilee L Vess MUNICIPAL SERVICES MANAGER [email or web address]. 05-15-2019 09:12-0400 Body mass index (BMI) [Ratio] 27.02 kg/m2 Neilee L Vess MUNICIPAL SERVICES MANAGER [employer] 05-15-2019 09:12-0400 Body surface area Derived from formula 1.99 m2 Neilee L Vess MUNICIPAL SERVICES MANAGER [employer] 05-15-2019 09:12-0400 Body temperature 98.3 [degF] Neilee L Vess MUNICIPAL SERVICES MANAGER [employer]. Comment on above: Method: Tympanic 05-15-2019 09:12-0400 Body weight 83.01 kg Emmae L Vess MUNICIPAL SERVICES MANAGER [employer], [employer]. 05-15-2019 09:12-0400 Diastolic blood pressure 70 mm[Hg] Neilee L Vess MUNICIPAL SERVICES MANAGER [employer], [employer]. Comment on above: Patient Position: Sitting; Cuff Location : Right Arm; Cuff Size: Standard 05-15-2019 09:12-0400 Heart rate 88 /min Emmae Natalia Roberts MUNICIPAL SERVICES MANAGER [email or web address]. Comment on above: Pattern: Regular 05-15-2019 09:12-0400 Systolic blood pressure 125 mm[Hg] Millicentilee L Vess MUNICIPAL SERVICES MANAGER [employer], [employer], [employer]. Comment on above: Patient Position: Sitting; Cuff Location : Right Arm; Cuff Size: Standard 02-28-2019 09:20-0400 Body height 175.26 cm Rosy Diana MUNICIPAL SERVICES MANAGER Work Phone: [employer].; [email or web address]. 02-28-2019 09:20-0400 Body mass index (BMI) [Ratio] 25.7 kg/m2 [employer] MUNICIPAL SERVICES MANAGER Work Phone: [email or web address].; [employer]. 02-28-2019 09:20-0400 Body surface area Derived from formula 1.95 m2 Rosy Diana MUNICIPAL SERVICES MANAGER Work Phone: [email or web address].; [employer]. 02-28-2019 09:20-0400 Body temperature 99 [degF] Rosy Diana MUNICIPAL SERVICES MANAGER Work Phone: [employer].; [employer]. Comment on above: Method: Tympanic 02-28-2019 09:20-0400 Body weight 78.93 kg Rosy Ortiz LPN Work Phone: [email or web address].; [employer]. 02-28-2019 09:20-0400 Diastolic blood pressure 66 mm[Hg] Rosy Ortiz LPN Work Phone: [email or web address].; [employer]. Comment on above: Patient Position: Sitting; Cuff Location : Left Arm; Cuff Size: Standard 02-28-2019 09:20-0400 Heart rate 77 /min Rosy Ortiz LPN Work Phone: [employer]; [employer]. Comment on above: Pattern: Regular 02-28-2019 09:20-0400 Systolic blood pressure 122 mm[Hg] Rosy Ortiz LPN Work Phone: [email or web address].; [employer]. Comment on above: Patient Position: Sitting; Cuff Location : Left Arm; Cuff Size: Standard 12-23-2018 09:02-0400 Body height 175.26 cm Suki Ca RN [employer].; [employer]. 12-23-2018 09:02-0400 Body mass index (BMI) [Ratio] 25.84 kg/m2 Suki Ca RN [employer].; [email or web address]. 12-23-2018 09:02-0400 Body surface area Derived from formula 1.95 m2 Suki Ca RN [employer].; [employer]. 12-23-2018 09:02-0400 Body temperature 99 [degF] Suki Ca RN [employer].; [employer]. Comment on above: Method: Tympanic 12-23-2018 09:02-0400 Body weight 79.38 kg Suki Ca RN [employer].; [email or web address]. 12-23-2018 09:02-0400 Diastolic blood pressure 75 mm[Hg] Suki Ca RN [employer].; [employer]. Comment on above: Patient Position: Sitting; Cuff Location : Left Arm; Cuff Size: Standard 12-23-2018 09:02-0400 Heart rate 72 /min Suki Ca RN [employer].; [email or web address]. Comment on above: Pattern: Regular 12-23-2018 09:02-0400 Systolic blood pressure 123 mm[Hg] Suki Ca RN [employer].; [employer]. Comment on above: Patient Position: Sitting; Cuff Location : Left Arm; Cuff Size: Standard 08-29-2018 08:20-0500 Body height 175.26 cm Suki Ca RN [employer].; [employer]. 08-29-2018 08:20-0500 Body mass index (BMI) [Ratio] 25.7 kg/m2 Suki Ca RN [employer].; [employer]. 08-29-2018 08:20-0500 Body surface area Derived from formula 1.95 m2 Suki Ca RN [employer].; [employer]. 08-29-2018 08:20-0500 Body temperature 98.6 [degF] Suki Ca RN [employer].; [employer]. Comment on above: Method: Tympanic 08-29-2018 08:20-0500 Body weight 78.93 kg Suki Ca RN [employer].; [employer]. 08-29-2018 08:20-0500 Diastolic blood pressure 68 mm[Hg] Suki Ca RN [employer].; [employer]. Comment on above: Patient Position: Sitting; Cuff Location : Left Arm; Cuff Size: Standard 08-29-2018 08:20-0500 Heart rate 73 /min Suki Ca RN [employer].; [employer]. Comment on above: Pattern: Regular 08-29-2018 08:20-0500 Systolic blood pressure 109 mm[Hg] Suki Ca RN [employer].; [email or web address]. Comment on above: Patient Position: Sitting; Cuff Location : Left Arm; Cuff Size: Standard 05-22-2018 14:45-0400 Body height 175.26 cm Suki Ca RN [place] [employer]. 05-22-2018 14:45-0400 Body mass index (BMI) [Ratio] 25.99 kg/m2 Suki Ca RN [place] [employer]. 05-22-2018 14:45-0400 Body surface area Derived from formula 1.96 m2 Suki Ca RN [employer].; [employer]. 05-22-2018 14:45-0400 Body temperature 97.9 [degF] Suki Ca RN [employer].; [employer]. Comment on above: Method: Tympanic 05-22-2018 14:45-0400 Body weight 79.83 kg Suki Ca RN [employer].; [email or web address]. 05-22-2018 14:45-0400 Diastolic blood pressure 79 mm[Hg] Suki Ca RN [employer].; [employer]. Comment on above: Patient Position: Sitting; Cuff Location : Left Arm; Cuff Size: Standard 05-22-2018 14:45-0400 Heart rate 62 /min Suki Ca RN [employer].; [employer]. Comment on above: Pattern: Regular 05-22-2018 14:45-0400 Systolic blood pressure 120 mm[Hg] Suki Ca RN [employer].; [email or web address]. Comment on above: Patient Position: Sitting; Cuff Location : Left Arm; Cuff Size: Standard 10-22-2017 18:39-0500 Body height 175.26 cm Suki Ca RN [employer].; [email or web address]. 10-22-2017 18:39-0500 Body mass index (BMI) [Ratio] 26.17 kg/m2 Suki Ca RN [employer].; [email or web address]. 10-22-2017 18:39-0500 Body surface area Derived from formula 1.96 m2 Suki Ca RN [employer].; [employer]. 10-22-2017 18:39-0500 Body temperature 98.5 [degF] Suki Ca RN [place] [employer]. Comment on above: Method: Tympanic 10-22-2017 18:39-0500 Body weight 80.38 kg Suki Ca RN [employer].; [employer]. 10-22-2017 18:39-0500 Diastolic blood pressure 66 mm[Hg] Suki Ca RN [employer].; [employer]. Comment on above: Patient Position: Sitting; Cuff Location : Left Arm; Cuff Size: Standard 10-22-2017 18:39-0500 Heart rate 66 /min Suki Ca RN [employer].; [email or web address]. Comment on above: Pattern: Regular 10-22-2017 18:39-0500 Systolic blood pressure 114 mm[Hg] Suki Ca RN [employer].; [email or web address]. Comment on above: Patient Position: Sitting; Cuff Location : Left Arm; Cuff Size: Standard 12-28-2016 08:21-0400 Body height 172.72 cm Suki Ca RN [email or web address]. 12-28-2016 08:21-0400 Body mass index (BMI) [Ratio] 24.92 kg/m2 Suki Ca RN [employer].; [email or web address]. 12-28-2016 08:21-0400 Body surface area Derived from formula 1.88 m2 Suki Ca RN [employer].; [employer]. 12-28-2016 08:21-0400 Body temperature 98.9 [degF] Suki Ca RN [employer].; [employer]. Comment on above: Method: Tympanic 12-28-2016 08:21-0400 Body weight 74.35 kg Suki Ca RN [employer].; [employer]. 12-28-2016 08:21-0400 Diastolic blood pressure 67 mm[Hg] Suki Ca RN [employer].; [employer]. Comment on above: Patient Position: Sitting; Cuff Location : Left Arm; Cuff Size: Standard 12-28-2016 08:21-0400 Heart rate 69 /min Suki Ca RN [employer].; [employer]. Comment on above: Pattern: Regular 12-28-2016 08:21-0400 Systolic blood pressure 114 mm[Hg] Suki Ca RN [employer].; [email or web address]. Comment on above: Patient Position: Sitting; Cuff Location : Left Arm; Cuff Size: Standard 10-27-2016 09:52-0500 Body height 172.72 cm Luke Janeth PA-C Work Phone: [email or web address].; [employer]. 10-27-2016 09:52-0500 Body mass index (BMI) [Ratio] 24.63 kg/m2 Luke Janeth PA-C Work Phone: [email or web address].; [employer]. 10-27-2016 09:52-0500 Body surface area Derived from formula 1.87 m2 Luke Janeth PA-C Work Phone: [email or web address].; [employer]. 10-27-2016 09:52-0500 Body temperature 98.8 [degF] Luke Janeth PA-C Work Phone: [email or web address].; [employer]. Comment on above: Method: Tympanic 10-27-2016 09:52-0500 Body weight 73.48 kg LuStillSecureJaneth PA-C Work Phone: [email or web address].; [employer]. 10-27-2016 09:52-0500 Diastolic blood pressure 77 mm[Hg] Luke Janeth PA-C Work Phone: [email or web address].; [employer]. Comment on above: Patient Position: Sitting; Cuff Location : Right Arm; Cuff Size: Standard 10-27-2016 09:52-0500 Heart rate 72 /min Luke Janeth PA-C Work Phone: [employer]; [employer]. Comment on above: Pattern: Regular 10-27-2016 09:52-0500 Systolic blood pressure 127 mm[Hg] Luke Janeth PA-C Work Phone: [employer].; [employer]. Comment on above: Patient Position: Sitting; Cuff Location : Right Arm; Cuff Size: Standard 08-25-2016 10:15-0500 Body height 172.72 cm Luke Janeth PA-C Work Phone: [employer].; [employer]. 08-25-2016 10:15-0500 Body mass index (BMI) [Ratio] 24.33 kg/m2 Luke Janeth PA-C Work Phone: [employer].; [employer]. 08-25-2016 10:15-0500 Body surface area Derived from formula 1.86 m2 Luke Janeth PA-C Work Phone: [employer]; [employer]. 08-25-2016 10:15-0500 Body temperature 99.4 [degF] Luke Janeth PA-C Work Phone: [employer]; [employer]. Comment on above: Method: Tympanic 08-25-2016 10:15-0500 Body weight 72.58 kg Luke Janeth PA-C Work Phone: [email or web address].; [employer]. 08-25-2016 10:15-0500 Diastolic blood pressure 70 mm[Hg] Luke Janeth PA-C Work Phone: [employer]; [employer] Comment on above: Patient Position: Sitting; Cuff Location : Right Arm; Cuff Size: Standard 08-25-2016 10:15-0500 Heart rate 63 /min Ivan Shawetler PA-C Work Phone: [email or web address].; [employer]. Comment on above: Pattern: Regular 08-25-2016 10:15-0500 Systolic blood pressure 112 mm[Hg] Ivan FunesJaneth PA-C Work Phone: [email or web address].; [employer]. Comment on above: Patient Position: Sitting; Cuff Location : Right Arm; Cuff Size: Standard 07-18-2016 13:16-0400 Body weight 73.94 kg Neilee L Vess MUNICIPAL SERVICES MANAGER [email or web address].; [employer]. 07-18-2016 13:16-0400 Diastolic blood pressure 67 mm[Hg] Neilee L Vess MUNICIPAL SERVICES MANAGER [email or web address].; [employer]. Comment on above: Patient Position: Sitting; Cuff Location : Right Arm; Cuff Size: Standard 07-18-2016 13:16-0400 Heart rate 81 /min Neilee L Vess MUNICIPAL SERVICES MANAGER [email or web address].; [employer]. Comment on above: Pattern: Regular 07-18-2016 13:16-0400 Systolic blood pressure 119 mm[Hg] Neilee L Vess MUNICIPAL SERVICES MANAGER [email or web address].; [employer]. Comment on above: Patient Position: Sitting; Cuff Location : Right Arm; Cuff Size: Standard 07-29-2015 [id number] Body height 172.72 cm Suki Ca RN [employer].; [email or web address]. 07-29-2015 10:28-0400 Body mass index (BMI) [Ratio] 24.48 kg/m2 Suki Ca RN [employer].; [employer]. 07-29-2015 10:28-0400 Body surface area Derived from formula 1.86 m2 Suki Ca RN [employer].; [employer]. 07-29-2015 10:28-0400 Body temperature 100.7 [degF] Suki Ca RN [employer].; [employer]. Comment on above: Method: Tympanic 07-29-2015 [id number] Body weight 73.03 kg [facility] [employer]. 07-29-2015 10:28-0400 Diastolic blood pressure 73 mm[Hg] Suki Ca RN [place] [employer]. Comment on above: Patient Position: Sitting; Cuff Location : Left Arm; Cuff Size: Standard 07-29-2015 10:28-0400 Heart rate 118 /min Suki Ca RN [place] [employer]. Comment on above: Pattern: Regular 07-29-2015 10:28-0400 Systolic blood pressure 124 mm[Hg] Suki Ca RN [place] [employer]. Comment on above: Patient Position: Sitting; Cuff Location : Left Arm; Cuff Size: Standard 07-28-2015 14:07-0400 Body height 172.72 cm Suki Ca RN [place] [employer] [facility] [employer]. 07-28-2015 14:07-0400 Body mass index (BMI) [Ratio] 24.48 kg/m2 Suki Ca RN [place] [employer]. 07-28-2015 14:07-0400 Body surface area Derived from formula 1.86 m2 Suki Ca RN [place] [employer]. 07-28-2015 14:07-0400 Body temperature 98.1 [degF] Suki Ca RN [place] [employer]. Comment on above: Method: Tympanic 07-28-2015 [id number] Body weight 73.03 kg Suki Ca RN [place] [employer]. 07-28-2015 14:07-0400 Diastolic blood pressure 70 mm[Hg] Suki Ca RN [place] [employer]. Comment on above: Patient Position: Sitting; Cuff Location : Left Arm; Cuff Size: Standard 07-28-2015 14:07-0400 Heart rate 72 /min Suki Ca RN [employer].; [employer]. Comment on above: Pattern: Regular 07-28-2015 14:07-0400 Systolic blood pressure 119 mm[Hg] Suki Ca RN [place] [employer]. Comment on above: Patient Position: Sitting; Cuff Location : Left Arm; Cuff Size: Standard 01-27-2015 12:06-0400 Body height 172.72 cm Suki Ca RN [place] [employer]. 01-27-2015 12:06-0400 Body mass index (BMI) [Ratio] 23.87 kg/m2 Suki Ca RN [employer].; [employer]. 01-27-2015 12:06-0400 Body surface area Derived from formula 1.84 m2 Suki Ca RN [place] [employer]. 01-27-2015 12:06-0400 Body temperature 98.8 [degF] Suki Ca RN [employer].; [employer]. Comment on above: Method: Tympanic 01-27-2015 12:06-0400 Body weight 71.22 kg Suki Ca RN [place] [employer] [facility] [employer]. 01-27-2015 12:06-0400 Diastolic blood pressure 77 mm[Hg] Suki Ca RN [employer].; [employer]. Comment on above: Patient Position: Sitting; Cuff Location : Left Arm; Cuff Size: Standard 01-27-2015 12:06-0400 Heart rate 60 /min Suki Ca RN [employer].; [employer]. Comment on above: Pattern: Regular 01-27-2015 12:06-0400 Systolic blood pressure 125 mm[Hg] Suki Ca RN [employer].; [employer]. Comment on above: Patient Position: Sitting; Cuff Location : Left Arm; Cuff Size: Standard 10-28-2014 15:19-0500 Body height 172.72 cm Suki Ca RN [place] [employer]. 10-28-2014 15:19-0500 Body mass index (BMI) [Ratio] 24.33 kg/m2 Suki Ca RN [place] [employer]. 10-28-2014 15:19-0500 Body surface area Derived from formula 1.86 m2 Suki Ca RN [place] [employer]. 10-28-2014 15:19-0500 Body temperature 99.3 [degF] Suki Ca RN [employer].; [employer]. Comment on above: Method: Tympanic 10-28-2014 15:19-0500 Body weight 72.58 kg Suki Ca RN [employer].; [employer]. 10-28-2014 15:19-0500 Diastolic blood pressure 75 mm[Hg] Suki Ca RN [employer].; [employer]. Comment on above: Patient Position: Sitting; Cuff Location : Left Arm; Cuff Size: Standard 10-28-2014 15:19-0500 Heart rate 70 /min Suki Ca RN [employer].; [employer]. Comment on above: Pattern: Regular 10-28-2014 15:19-0500 Systolic blood pressure 123 mm[Hg] Suki Ca RN [employer].; [employer]. Comment on above: Patient Position: Sitting; Cuff Location : Left Arm; Cuff Size: Standard 06-29-2014 09:45-0400 Body height 172.72 cm Suki Ca RN [place] [employer]. 06-29-2014 09:45-0400 Body mass index (BMI) [Ratio] 22.2 kg/m2 Suki Ca RN [employer]. 06-29-2014 09:45-0400 Body surface area Derived from formula 1.79 m2 Suki Ca RN [employer]. 06-29-2014 09:45-0400 Body temperature 98.4 [degF] Suki Ca RN [employer].; [employer]. Comment on above: Method: Tympanic 06-29-2014 09:45-0400 Body weight 66.23 kg Suki Ca RN [employer]. 06-29-2014 09:45-0400 Diastolic blood pressure 54 mm[Hg] Suki Ca RN [employer].; [employer]. Comment on above: Patient Position: Sitting; Cuff Location : Left Arm; Cuff Size: Standard 06-29-2014 09:45-0400 Systolic blood pressure 120 mm[Hg] Suki Ca RN [employer].; [employer]. Comment on above: Patient Position: Sitting; Cuff Location : Left Arm; Cuff Size: Standard 06-16-2014 10:35-0400 Body temperature 99 [degF] Neilee L Vess MUNICIPAL SERVICES MANAGER [email or web address]. Comment on above: Method: Tympanic 06-16-2014 10:35-0400 Body weight 68.95 kg Neilee L Vess MUNICIPAL SERVICES MANAGER [email or web address]. 06-16-2014 10:35-0400 Diastolic blood pressure 86 mm[Hg] Neilee L Vess MUNICIPAL SERVICES MANAGER [email or web address]. Comment on above: Patient Position: Sitting; Cuff Location : Left Arm; Cuff Size: Standard 06-16-2014 10:35-0400 Heart rate 100 /min Neilee L Vess MUNICIPAL SERVICES MANAGER [email or web address]. Comment on above: Pattern: Regular 06-16-2014 10:35-0400 Systolic blood pressure 140 mm[Hg] Neilee L Vess MUNICIPAL SERVICES MANAGER [email or web address]. Comment on above: Patient Position: Sitting; Cuff Location : Left Arm; Cuff Size: Standard 05-27-2014 12:37-0400 Body temperature 98.7 [degF] Neilee L Vess MUNICIPAL SERVICES MANAGER [email or web address]. Comment on above: Method: Tympanic 05-27-2014 12:37-0400 Body weight 68.04 kg Neilee L Vess MUNICIPAL SERVICES MANAGER [email or web address]. 05-27-2014 12:37-0400 Diastolic blood pressure 69 mm[Hg] Neilee L Vess MUNICIPAL SERVICES MANAGER [email or web address]. Comment on above: Patient Position: Sitting; Cuff Location : Right Arm; Cuff Size: Standard 05-27-2014 12:37-0400 Heart rate 63 /min Neilee L Vess MUNICIPAL SERVICES MANAGER [email or web address]. Comment on above: Pattern: Regular 05-27-2014 12:37-0400 Systolic blood pressure 116 mm[Hg] Neilee L Vess MUNICIPAL SERVICES MANAGER [email or web address]. Comment on above: Patient Position: Sitting; Cuff Location : Right Arm; Cuff Size: Standard 11-14-2013 10:23-0500 Body temperature 98 [degF] Luke Janeth PA-C Work Phone: [email or web address]. Comment on above: Method: Tympanic 11-14-2013 10:23-0500 Body weight 69.57 kg Luke Janeth PA-C Work Phone: [email or web address]. 11-14-2013 10:23-0500 Diastolic blood pressure 75 mm[Hg] Luke Janeth PA-C Work Phone: [email or web address]. Comment on above: Patient Position: Sitting; Cuff Location : Left Arm; Cuff Size: Standard 11-14-2013 10:23-0500 Heart rate 64 /min Luke Janeth PA-C Work Phone: [employer]; [email or web address]. Comment on above: Pattern: Regular 11-14-2013 10:23-0500 Inhaled oxygen concentration 21 % Luke Janeth PA-C Work Phone: [employer]; [email or web address]. Comment on above: Room air 11-14-2013 10:23-0500 SaO2% (BldA) [Mass fraction] 99 % Ivan FunesJaneth PA-C Work Phone: [email or web address]. 11-14-2013 10:23-0500 Systolic blood pressure 116 mm[Hg] Ivan Dudleyler PA-C Work Phone: [email or web address]. Comment on above: Patient Position: Sitting; Cuff Location : Left Arm; Cuff Size: Standard 10-13-2013 10:20-0500 Body height 172.72 cm Suki Ca RN [email or web address]. 10-13-2013 10:20-0500 Body mass index (BMI) [Ratio] 23.26 kg/m2 Suki Ca RN [email or web address]. 10-13-2013 10:20-0500 Body surface area Derived from formula 1.82 m2 Suki Ca RN [email or web address]. 10-13-2013 10:20-0500 Body temperature 97.8 [degF] Suki Ca RN [email or web address]. Comment on above: Method: Tympanic 10-13-2013 10:20-0500 Body weight 69.4 kg Suki Ca RN [email or web address]. 10-13-2013 10:20-0500 Diastolic blood pressure 78 mm[Hg] Suki Ca RN [email or web address]. Comment on above: Patient Position: Sitting; Cuff Location : Left Arm; Cuff Size: Standard 10-13-2013 10:20-0500 Heart rate 77 /min Suki Ca RN [email or web address]. Comment on above: Pattern: Regular 10-13-2013 10:20-0500 Systolic blood pressure 121 mm[Hg] Suki Ca RN [email or web address]. Comment on above: Patient Position: Sitting; Cuff Location : Left Arm; Cuff Size: Standard 03-04-2013 15:35-0400 Body temperature 99.2 [degF] Neilee L Vess MUNICIPAL SERVICES MANAGER [employer] [facility], [email or web address]. Comment on above: Method: Tympanic 03-04-2013 15:35-0400 Body weight 67.13 kg Neilee L Vess MUNICIPAL SERVICES MANAGER [employer] [facility], [email or web address]. 03-04-2013 15:35-0400 Diastolic blood pressure 80 mm[Hg] Neilee L Vess MUNICIPAL SERVICES MANAGER [facility], [email or web address]. Comment on above: Patient Position: Sitting; Cuff Location : Left Arm; Cuff Size: Standard 03-04-2013 15:35-0400 Heart rate 64 /min Neilee L Vess MUNICIPAL SERVICES MANAGER [employer] [facility], [email or web address]. Comment on above: Pattern: Regular 03-04-2013 15:35-0400 Systolic blood pressure 132 mm[Hg] Neilee L Vess MUNICIPAL SERVICES MANAGER [facility], [email or web address]. Comment on above: Patient Position: Sitting; Cuff Location : Left Arm; Cuff Size: Standard Respiratory rate [facility] [employer]. Encounters Encounter Date Encounter Type Care Provider Facility Start: 03-30-2025 End: 03-30-2025 [facility] Facility:[facility] Start: 03-30-2025 End: 03-30-2025 Office outpatient visit 25 minutes Mike Mccarthy APRN.CNP Work Phone: [facility] Comment on above: Bacterial sinusitis (Primary Dx) Start: 02-01-2025 End: 02-01-2025 Patient encounter procedure Zurdo Araiza APRN.CNP Work Phone: [facility] Comment on above: Sore throat (Primary Dx); Viral upper respiratory infection Start: 02-01-2025 End: 02-01-2025 [facility] Facility:[facility] Start: 11-06-2024 [facility] Start: 10-28-2024 End: 10-28-2024 ambulatory [facility] Start: 08-22-2024 End: 08-22-2024 ambulatory Marianne Fraire Facility:[facility] Start: 08-22-2024 End: 08-22-2024 ambulatory Marianne Fraire Facility:[facility] Start: 07-25-2024 End: 07-25-2024 ambulatory Julianne Hernandezde Facility:[facility] Start: 07-24-2024 End: 07-24-2024 Emergency department patient visit Farrah Disla Facility:[facility] Start: 07-24-2024 End: 07-24-2024 ambulatory Julianne Hernandezde Facility:[facility] Start: 07-23-2024 End: 07-23-2024 ambulatory MEI Renae [place] Facility:[facility] Start: 07-23-2024 End: 07-23-2024 Office outpatient visit 15 minutes Mike Mccarthy APRN.CNP Work Phone: [facility] Comment on above: Viral illness (Prima ry Dx) Start: 07-23-2024 End: 07-23-2024 ambulatory Mei JOLLEY Facility:[facility] Start: 07-22-2024 End: 07-22-2024 ambulatory Juliannenadja Brucee Velde Facility:[facility] Start: 07-21-2024 End: 07-21-2024 ambulatory Julianne Vande Velde Facility:[facility] Start: 07-20-2024 End: 07-20-2024 ambulatory Julianne Vande Velde Facility:[facility] Start: 07-19-2024 End: 07-19-2024 ambulatory Julianne Vande Velde Facility:[facility] Start: 07-18-2024 End: 07-18-2024 ambulatory Julianne Vande Velde Facility:[facility] Start: 07-17-2024 End: 07-17-2024 ambulatory Julianne Vande Velde Facility:[facility] Start: 07-16-2024 End: 07-16-2024 ambulatory Julianne Vande Velde Facility:[facility] Start: 07-14-2024 End: 07-14-2024 ambulatory Mei JOLLEY Facility:[facility] Start: 07-14-2024 End: 07-14-2024 ambulatory Julianne Vande Velde Facility:[facility] Start: 07-01-2024 End: 07-02-2024 Evaluation and management of inpatient Mei Hernandez SAMREEN Facility:[facility] Start: 07-01-2024 ambulatory Claudia Aguilera NP Facil ity:[facility] Start: 06-30-2024 ambulatory Meipaul Hernandez PA Facil ity:[facility] Start: 06-25-2024 ambulatory [facility] Facility [facility] Start: 06-24-2024 End: 06-24-2024 ambulatory Dariana Hart Facility:[facility] Start: 06-23-2024 End: 06-23-2024 ambulatory Marianne Juno Facility:[facility] Start: 06-23-2024 End: 06-24-2024 ambulatory [facility] Start: 06-16-2024 End: 06-16-2024 ambulatory [facility] Start: 06-09-2024 End: 06-09-2024 ambulatory Mei [facility] [place] Facility:[facility] Start: 06-09-2024 End: 06-09-2024 ambulatory KAYLA Chatman [facility] Start: 06-06-2024 End: 06-07-2024 Evaluation and management of inpatient Iman Narayanan DO Work Phone: [facility] Comment on above: Monochorionic diamni otic twin gestation in third trimester (Primary Dx); contractions Start: 06-06-2024 End: 06-06-2024 ambulatory Meipaul Hernandez SAMREEN Facility:[facility] Start: 06-03-2024 End: 06-03-2024 Patient encounter procedure Mary Herrera APRN.IRAJ Work Phone: [facility] Comment on above: Foot pain, right (Pr imary Dx) Start: 06-03-2024 End: 06-03-2024 ambulatory MEI Oc [place] Facility:[facility] Start: 06-03-2024 End: 06-03-2024 Subsequent hospital visit by physician Sandi [facility] Work Phone: Radiology Comment on above: Foot pain, right [M7 9.671] Start: 06-03-2024 End: 06-03-2024 ambulatory KAYLA Lurdes [facility] Start: 05-28-2024 End: 05-28-2024 ambulatory Mei Hernandez PA Facility:[facility] Start: 05-26-2024 End: 05-26-2024 ambulatory KAYLA Chatman [facility] Start: 05-12-2024 End: 05-12-2024 ambulatory Marianne Fraire Facility:[facility] Start: 05-12-2024 End: 05-12-2024 ambulatory [facility] Start: 05-12-2024 End: 05-12-2024 ambulatory [facility] Start: 05-08-2024 End: 05-08-2024 ambulatory Claudia Aguilera NP Facility:[facility] Start: 04-28-2024 End: 04-28-2024 ambulatory Mei Hernandez PA Facility:[facility] Start: 04-28-2024 End: 04-28-2024 ambulatory [facility] Start: 04-28-2024 End: 04-28-2024 ambulatory Julianne Antony Facility:[facility] Start: 04-18-2024 End: 04-18-2024 ambulatory Mei [place] PA Facility:[facility] Start: 04-15-2024 End: 04-15-2024 ambulatory [facility] Start: 04-14-2024 End: 04-14-2024 ambulatory [facility] Start: 03-31-2024 End: 03-31-2024 ambulatory [facility]DA [facility] Start: 03-20-2024 End: 03-20-2024 ambulatory Mei Hernandez PA Facility:[facility] Start: 03-20-2024 End: 03-20-2024 ambulatory KAYLA A [facility] Start: 03-05-2024 End: 03-05-2024 ambulatory [facility] Start: 02-26-[address] [facility] Start: 02-20-2024 End: 02-20-2024 ambulatory MEI HERNANDEZ [facility] Start: 02-18-2024 End: 02-18-2024 ambulatory Dariana Hart Facility:[facility] Start: 01-25-2024 ambulatory Topher Johnson Facility :[facility] Start: 01-21-2024 End: 01-21-2024 ambulatory Constance Munoz Facility:[facility] Start: 01-14-2024 End: 01-14-2024 Patient encounter procedure Kylee Sage PA-C Work Phone: [facility] Comment on above: Bacterial sinusitis (Primary Dx) Start: 01-09-2024 End: 01-09-2024 ambulatory Mei Hernandez PA Facility:[facility] Start: 12-24-2023 End: 12-24-2023 Patient encounter procedure PA-C Mei Hernandez PA Work Phone: [facility] Work Phone: Start: 12-24-2023 End: 12-24-2023 ambulatory PA-C Mei [place] PA Work Phone: [facility] Work Phone: Start: 12-24-2023 End: 12-24-2023 ambulatory Marianne Fraire Facility:[facility] Start: 12-10-2023 End: 12-10-2023 Patient encounter procedure PA-C Mei [place] PA Work Phone: [facility] Work Phone: Start: 12-10-2023 End: 12-10-2023 ambulatory Mei Hernandez PA Facility:[facility] Start: 11-30-2023 End: 11-30-2023 ambulatory PA-C Me[place] PA Work Phone: [facility] Work Phone: Start: 11-30-2023 End: 11-30-2023 Patient encounter procedure PA-C Mei [place] PA Work Phone: [facility]-Laboratory, Specimen Work Phone: Start: 11-30-2023 End: 11-30-2023 Patient encounter procedure MIGUELITO JOLLEY Work Phone: [facility] Work Phone: Start: 11-30-2023 End: 11-30-2023 ambulatory Marianne Fraire Facility:[facility] Start: 11-30-2023 End: 11-30-2023 ambulatory Marianne Fraire Facility:[facility] Start: 11-27-2023 End: 11-27-2023 ambulatory MIGUELITO Hernandez PA Work Phone: [facility] Work Phone: Start: 11-27-2023 End: 11-27-2023 Patient encounter procedure MIGUELITO JOLLEY Work Phone: [facility]-Ultrasound, [facility] Work Phone: Start: 11-27-2023 End: 11-27-2023 ambulatory Marianne Juno Facility:[facility] Start: 11-15-2023 ambulatory Topher Johnson Facility :[facility] Start: 10-25-2023 End: 10-25-2023 Patient encounter procedure MIGUELITO JOLLEY Work Phone: [facility]-Nuclear Medicine, [facility] Work Phone: Start: 10-25-2023 End: 10-25-2023 ambulatory Topher Johnson Facility:[facility] Start: 08-31-2023 End: 08-31-2023 Patient encounter procedure MIGUELITO JOLLEY Work Phone: [facility] Work Phone: Start: 08-04-2023 ambulatory ABDON DRUMMOND Facility: [id number] Start: 08-04-2023 End: 08-04-2023 Subsequent hospital visit by physician [facility] Work Phone: [facility] Comment on above: Other cervical disc displacement, 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] Start: 07-20-2023 End: 07-20-2023 Patient encounter procedure Danae Marc WORKERS COMPENSATION CLAIMS EXAMINER.CNM Work Phone: OB/Gynecology Comment on above: Female infertility ( Primary Dx); Irregular periods/menstrual cycles Start: 07-02-2023 ambulatory Danae sanders WORKERS COMPENSATION CLAIMS EXAMINER.CNM Work Phone: OB/Gynecology Comment on above: Hormones Start: 06-10-2023 End: 06-10-2023 Office outpatient visit 25 minutes Mike Mccarthy WORKERS COMPENSATION CLAIMS EXAMINER.[employer] Work Phone: [facility] Comment on above: Chronic neck and iveth k pain (Primary Dx) Start: 03-14-2023 End: 03-14-2023 ambulatory SAMREEN-Maryellen JOLLEY Work Phone: [facility] Work Phone: Start: 03-14-2023 End: 03-14-2023 Patient encounter procedure MIGUELITO JOLLEY Work Phone: [facility] Start: 03-07-2023 End: 03-07-2023 Patient encounter procedure PA-Maryellen Hernandez PA Work Phone: [facility] Start: 02-21-2023 End: 02-21-2023 Subsequent hospital visit by physician [facility] Work Phone: Radiology Comment on above: Cyst of ovary, unspe cified laterality [N83.209] Start: 02-21-2023 Patient encounter procedure MIGUELITO Hernandez PA Work Phone: [facility]-Laboratory Start: 02-19-2023 Non-patient / Non-visit MIGUELITO JOLLEY Work Phone: [facility] Start: 02-19-2023 End: 02-19-2023 Admission to same day surgery center MIGUELITO Hernandez PA Work Phone: [facility]-Endoscopy Start: 02-15-2023 End: 02-15-2023 ambulatory PA-Maryellen Hernandez PA Work Phone: [facility] Work Phone: Start: 02-15-2023 End: 02-15-2023 Patient encounter procedure PA-Maryellen Mei Hernandez PA Work Phone: [facility]-Cat Scan, [facility] Start: 01-08-2023 End: 01-08-2023 ambulatory PA-C Meipaul Hernandez PA Work Phone: [facility] Work Phone: Start: 01-08-2023 End: 01-08-2023 Patient encounter procedure SAMREEN-Maryellen Mei Hernandez PA Work Phone: [facility]-Ultrasound, [facility] Start: 12-14-2022 End: 12-14-2022 Patient encounter procedure PA-Maryellen Mei Hernandez PA Work Phone: [facility] Gastro[facility] Start: 11-02-2022 End: 11-02-2022 ambulatory [facility] Work Phone: Start: 11-02-2022 End: 11-02-2022 Patient encounter procedure [facility]-Outpatient Bone Densitometry Start: 09-27-2022 End: 09-27-2022 Patient encounter procedure Mary Herrera WORKERS COMPENSATION CLAIMS EXAMINER.GLAZE CARRIER Work Phone: [facility] Comment on above: Sinusitis, unspecifi ed chronicity, unspecified location (Primary Dx) Start: 09-10-2022 End: 09-10-2022 Patient encounter procedure Mike Mccarthy WORKERS COMPENSATION CLAIMS EXAMINER.[employer]LAZE CARRIER Work Phone: [facility] Comment on above: Sore throat [...] Start: 07-28-2022 End: 07-28-2022 Patient encounter procedure Gerald Bernal MD Work Phone: OB/Gynecology Comment on above: Pelvic pain in femal e (Primary Dx); Screening for cervical cancer; Special screening examination for human papillomavirus (HPV) Start: 05-10-2022 End: 05-10-2022 Subsequent hospital visit by physician [facility] Work Phone: Radiology Comment on above: Acute cough [R05.1] Start: 05-10-2022 End: 05-10-2022 Patient encounter procedure Humera Bernal APRN.[facility] Work Phone: [facility] Comment on above: Acute cough (Primary Dx); Sore throat Start: 03-16-2022 End: 03-16-2022 Patient encounter procedure Oswaldo Bernal MD Work Phone: Neurology Comment on above: Myofascial pain dysf unction syndrome (Primary Dx); Disturbance of skin sensation; Small fiber neuropathy; Muscle ache; Malaise and fatigue; Central sensitization to pain; Vitamin E deficiency Start: 02-24-2022 End: 02-24-2022 Patient encounter procedure [facility]-Laboratory Start: 08-23-2020 Patient requested procedure Oswaldo Bernal MD Work Phone: [facility] Work Phone: Start: 07-20-2020 End: 07-20-2020 Medication Ivan Fowler PA-C Work Phone: [employer] Start: 06-23-2020 End: 06-23-2020 Patient encounter procedure Ivan Fowler PA-C Work Phone: [employer] Start: 10-24-2019 End: 10-24-2019 Office outpatient visit 15 minutes Ivan Fowler PA-C Work Phone: [employer] Start: 10-14-2019 End: 10-14-2019 Telephone follow-up Luke Janeth PA-C Work Phone: [email or web address] Start: 09-23-2019 End: 09-23-2019 Telephone follow-up Luke Janeth PA-C Work Phone: [email or web address] Start: 09-15-2019 End: 09-15-2019 Telephone follow-up Luke Janeth PA-C Work Phone: [email or web address] Start: 08-15-2019 End: 08-25-2019 Orders Luke Janeth PA-C Work Phone: [email or web address]. Start: 07-28-2019 End: 07-28-2019 Patient encounter procedure Luke Janeth PA-C Work Phone: [email or web address]. Start: 05-15-2019 End: 05-15-2019 Office outpatient visit 10 minutes Luke Janeth PA-C Work Phone: [email or web address] Start: 02-28-2019 End: 02-28-2019 Patient encounter procedure Luke Janeth PA-C Work Phone: [email or web address]. Start: 01-02-2019 End: 01-02-2019 Patient encounter procedure Luke Janeth PA-C Work Phone: [email or web address]. Start: 12-23-2018 End: 12-23-2018 Office outpatient visit 25 minutes Luke Janeth PA-C Work Phone: [email or web address]. Start: 09-18-2018 End: 09-18-2018 Historical Summary Luke Janeth PA-C Work Phone: [email or web address]. Start: 09-16-2018 End: 09-16-2018 Telephone follow-up Luke Janeth PA-C Work Phone: [email or web address] Start: 08-29-2018 End: 08-29-2018 Historical Summary Luke Janeth PA-C Work Phone: [email or web address] Start: 08-29-2018 End: 08-29-2018 Patient encounter procedure Luke Janeth PA-C Work Phone: [email or web address]. Start: 08-28-2018 End: 08-28-2018 Historical Summary Luke Janeth PA-C Work Phone: [email or web address]. Start: 07-23-2018 End: 07-23-2018 Patient encounter procedure Luke Janeth PA-C Work Phone: [email or web address]. Start: 06-05-2018 End: 06-05-2018 Patient encounter procedure Luke Janeth PA-C Work Phone: [email or web address]. Start: 05-27-2018 End: 05-28-2018 Orders Luke Janeth PA-C Work Phone: [email or web address]. Start: 05-22-2018 End: 05-22-2018 Office outpatient visit 15 minutes Luke Janeth PA-C Work Phone: [email or web address]. Start: 10-22-2017 End: 10-25-2017 Patient encounter procedure Luke Janeth PA-C Work Phone: [email or web address]. Start: 02-02-2017 End: 02-06-2017 Orders Luke Janeth PA-C Work Phone: [email or web address] Start: 01-01-2017 End: 01-08-2017 Orders Luke Janeth PA-C Work Phone: [email or web address]. Start: 12-28-2016 End: 12-28-2016 Patient encounter procedure Luke Janeth PA-C Work Phone: [email or web address] Start: 10-27-2016 End: 10-27-2016 Office outpatient visit 15 minutes Luke Janeth PA-C Work Phone: [facility] [employer] Start: 08-25-2016 End: 08-25-2016 Patient encounter procedure Luke Janeth PA-C Work Phone: [facility] [employer] Start: 07-18-2016 End: 07-18-2016 Patient encounter procedure Luke Janeth PA-C Work Phone: [employer] Start: 07-29-2015 End: 07-29-2015 Patient encounter procedure Luke Janeth PA-C Work Phone: [employer] Start: 07-28-2015 End: 07-28-2015 Patient encounter procedure Luke Janeth PA-C Work Phone: [employer]. Start: 01-27-2015 End: 01-27-2015 Patient encounter procedure Luke Janeth PA-C Work Phone: [employer]. Start: 10-28-2014 End: 10-28-2014 Patient encounter procedure Luke Janeth PA-C Work Phone: [employer]. Start: 06-29-2014 End: 06-29-2014 Patient encounter procedure Luke Janeth PA-C Work Phone: [employer]. Start: 06-16-2014 End: 06-16-2014 Patient encounter procedure Luke Janeth PA-C Work Phone: [employer]. Start: 05-27-2014 End: 05-27-2014 Patient encounter procedure Luke Janeth PA-C Work Phone: [employer]. Start: 11-14-2013 End: 11-14-2013 Patient encounter procedure Luke Janeth PA-C Work Phone: [employer]. Start: 10-13-2013 End: 10-13-2013 Patient encounter procedure Luke Janeth PA-C Work Phone: [employer] Start: 03-04-2013 End: 03-04-2013 Patient encounter procedure Ivan Fowler [facility]-C [facility] Patient encounter procedure Mei D David FARLEY Work Phone: [facility]. Patient encounter procedure Mei Renae David FARLEY Work Phone: [facility] Patient encounter procedure Yanique Day MUNICIPAL SERVICES MANAGER [facility]. Procedures Date Procedure Procedure Detail Performing Clinician Start: 02-01-2025 STREP A MOLECULAR (POC) Zurdo Araiza APRN.GLAZE CARRIER Work Phone: Start: 07-01-2024 Antibody screen Claudia anne NP Comment on above: Order Comment: R Performed By: #### B , [id number] ####[facility] [id number] [facility] [place], [address] Start: 06-07-2024 Glucose quantitative blood xcpt reagent [...] on above: Performed By: #### L [id number], [id number] ####Gasoline Finisher: MODESTA KAMARA ([id number])[facility] ([facility])[address] [place] [address] Start: 06-06-2024 ABO and Rh group [Ty [...] assessment Iman Narayanan DO Work Phone: Start: 06-06-2024 Antibody screen Claudia anne NP Comment on above: Performed By: #### B [id number], BtBRANT, BTS ####[facility] [id number] [place], [place], [address] Start: 06-03-2024 Radex foot complete minimum 3 views Mary Herrera WORKERS COMPENSATION CLAIMS EXAMINER.GLAZE CARRIER Work Phone: Start: 11-30-2023 Urine culture MIGUELITO JOLLEY Work Phone: Start: 11-27-2023 Transvaginal obstetr ic ultrasonography SAMREEN-Maryellen JOLLEY Work Phone: Start: 10-25-2023 Radionuclide gastric emptying study PA-Maryellen JOLLEY Work Phone: Start: 08-04-2023 Mri spinal canal cer vical w/o contrast matrl Abdon Drummond DO Work Phone: Start: 03-14-2023 Ultrasonography of abdomen PA-Maryellen JOLLEY Work Phone: Start: 02-21-2023 Us transvaginal Gerald Bernal MD Work Phone: Start: 02-15-2023 Computed tomography of abdomen and pelvis with contrast SAMREEN-Maryellen JOLLEY Work Phone: Start: 01-08-2023 Ultrasonography of abdomen PA-Maryellen JOLLEY Work Phone: Start: 11-02-2022 Bone density scan Start: 09-10-2022 STREP A MOLECULAR (POC) Haven King RIC.GLAZE CARRIER Work Phone: Start: 08-01-2022 Us pelvic nonobstetr ic real-time image complete Gerald Bernal MD Work Phone: Start: 07-28-2022 Microscopic observat ion [Identifier] in Cervix by Cyto stain Iman Narayanan DO Work Phone: Start: 05-10-2022 Radiologic exam ches t 2 views Humera Bernal APRN.GLAZE CARRIER Work Phone: Start: 05-10-2022 STREP A MOLECULAR (POC) Humera Bernal APRN.GLAZE CARRIER Work Phone: Start: 07-28-2019 End: 07-28-2019 Depression screening Mei Hernandez PA -C Work Phone: Start: 07-28-2019 End: 07-28-2019 Scr dep neg, no plan reqd Mei Abbasi ls PA-C Work Phone: Start: 01-30-2019 Adult depression scr eening assessment Oswaldo Bernal MD Work Phone: Start: 12-23-2018 End: 01-01-2019 Mri spinal canal cervical w/o & w/contr matrl Mei Hernandez PA-C Work Phone: Start: 05-27-2018 End: 07-22-2018 Ndl emg 2 xtr w/wo related paraspinal areas Suki Ca RN Start: 05-22-2018 End: 05-22-2018 Depression screen annual Mei sanders PA-C Work Phone: Start: 05-22-2018 End: 05-27-2018 Radex spine lumbosacral 2/3 views Mei Hernandez PA-C Work Phone: Start: 05-22-2018 End: 05-22-2018 Scr dep neg, no plan reqd Mei Abbasi ls PA-C Work Phone: Start: 02-02-2017 End: 02-05-2017 Diagnostic mammography computer-aided detcj bi Mei Hernandez PA-C Work Phone: Start: 12-28-2016 End: 07-03-2017 Us breast uni real time with image complete Mei Hernandez PA-C Work Phone: Start: 10-27-2016 End: 10-31-2016 Ct abdomen & pelvis w/contrast material Haven Patten INSTRUCTOR [employer]-C Work Phone: Comment on above: lump felt in left fl ank for over a yearalso having RUQ pain. Start: 10-01-2016 End: 10-01-2016 Microscopic examination of cervical Papanicolaou smear Yanique Day MUNICIPAL SERVICES MANAGER Comment on above: [facility] Start: 10-01-2011 End: 10-01-2011 wisdom teeth extraction Yanique Day MUNICIPAL SERVICES MANAGER diagnostic mammogram Yanique Da y MUNICIPAL SERVICES MANAGER Plan of Treatment Date Care Activity Detail Author Start: 2041 Zoster Vaccines (1 of 2) Zoste r Vaccines (1 of 2) [facility] Start: 02-07-2031 DTaP/Tdap/Td Vaccine s (4 - Td or Tdap) DTaP/Tdap/Td Vaccines (4 - Td or Tdap) [facility] Start: 02-07-2031 Urine microalbumin profile [facility] Start: 07-28-2027 HPV TESTING HPV TESTING [facility] Start: 07-28-2027 PAP TESTING PAP TESTING [facility] Start: 07-28-2027 Screening for malign ant neoplasm of cervix [facility] Start: 09-06-2025 PAP TESTING PAP TESTING [facility] Start: 07-28-2025 Screening for malign ant neoplasm of cervix [facility] Start: 06-06-2025 Depression Screening Depression Scre ening [facility] Start: 06-01-2024 Covid-19 Vaccine ( season) Covid-19 Vaccine () [facility] Start: 06-01-2024 Covid-19 Vaccine ( season) Covid-19 Vaccine () [facility] Start: 06-01-2024 Influenza vaccination C [facility] Start: 11-30-2023 Chlamydia deoxyribon ucleic acid detection [facility] Start: 11-30-2023 [facility] Start: 11-30-2023 Bacteria identified in Urine by Culture [facility] Start: 10-01-2023 Behavioral Health Screening Behavioral Health Screening [facility] Start: 07-20-2023 End: 10-19-2023 17-Hydroxyprogesterone [Mass/volume] in Serum or Plasma HYDROXYPROGESTERO-17 Lab Routine Female infertility Expected: 07/20/2023, Expires: 10/19/2023 [facility] Work Phone: Comment on above: Expected: 07/20/2023 , Expires: 10/19/2023 Start: 07-20-2023 End: 10-19-2023 DHEA-S BLD DHEA-S BLD Lab Routine Female infertility Expected: 07/20/2023, Expires: 10/19/2023 [facility] Work Phone: Comment on above: Expected: 07/20/2023 , Expires: 10/19/2023 Start: 07-20-2023 End: 10-19-2023 Estradiol (E2) [Mass/volume] in Serum or Plasma ESTRADIOL-17B BLD Lab Routine Female infertility Expected: 07/20/2023, Expires: 10/19/2023 [facility] Work Phone: Comment on above: Expected: 07/20/2023 , Expires: 10/19/2023 Start: 07-20-2023 End: 10-19-2023 Fasting glucose [Mass/volume] in Serum or Plasma GLUCOSE FASTING BLD Lab Routine Female infertility Expected: 07/20/2023, Expires: 10/19/2023 [facility] Work Phone: Comment on above: Expected: 07/20/2023 , Expires: 10/19/2023 Start: 07-20-2023 End: 10-19-2023 Follitropin [Units/volume] in Serum or Plasma FSH BLD Lab Routine Female infertility Expected: 07/20/2023, Expires: 10/19/2023 [facility] Work Phone: Comment on above: Expected: 07/20/2023 , Expires: 10/19/2023 Start: 07-20-2023 End: 10-19-2023 Hemoglobin A1c in Blood HGB A1C Lab Routine Female infertility Expected: 07/20/2023, Expires: 10/19/2023 [facility] Work Phone: Comment on above: Expected: 07/20/2023 , Expires: 10/19/2023 Start: 07-20-2023 End: 10-19-2023 Lutropin [Units/volume] in Serum or Plasma LUTEINIZING HORMONE Lab Routine Female infertility Expected: 07/20/2023, Expires: 10/19/2023 [facility] Work Phone: Comment on above: Expected: 07/20/2023 , Expires: 10/19/2023 Start: 07-20-2023 End: 10-19-2023 Prolactin [Mass/volume] in Serum or Plasma PROLACTIN BLD Lab Routine Female infertility Expected: 07/20/2023, Expires: 10/19/2023 [facility] Work Phone: Comment on above: Expected: 07/20/2023 , Expires: 10/19/2023 Start: 07-20-2023 End: 10-19-2023 TESTOSTERONE, FREE AND TOTAL TESTOSTERONE, FREE AND TOTAL Lab Routine Female infertility Expected: 07/20/2023, Expires: 10/19/2023 [facility] Work Phone: Comment on above: Expected: 07/20/2023 , Expires: 10/19/2023 Start: 07-20-2023 End: 10-19-2023 Thyrotropin [Units/volume] in Serum or Plasma TSH BLD Lab Routine Female infertility Expected: 07/20/2023, Expires: 10/19/2023 [facility] Work Phone: Comment on above: Expected: 07/20/2023 , Expires: 10/19/2023 Start: 06-01-2023 Covid-19 Vaccine () Covid-19 Vaccine () [facility] Start: 06-01-2023 Influenza vaccination C [facility] Start: 02-19-2023 Colonoscopy w/biopsy single/multiple COLONOSCOPY AND BIOPSY [facility] Start: 02-19-2023 Egd transoral biopsy single/multiple EGD BIOPSY SINGLE/MULTIPLE [facility] Start: 02-19-2023 Patient discharge [facility] Start: 10-01-2022 DEPRESSION ASSESSMENT DEPRESSION ASS ESSMENT [facility] Start: 09-10-2022 End: 09-24-2022 Influenza virus A and B RNA and SARS-CoV-2 (COVID-19) N gene panel - Respiratory specimen by SONA with probe detection COVID WITH FLUA+B, ROUTINE Microbiology Routine Sore throat Viral illness Expected: 09/10/2022, Expires: 09/24/2022 [facility] Work Phone: Comment on above: Expected: 09/10/2022 , Expires: 09/24/2022 Start: 07-28-2022 End: 07-28-2023 PELVIC US WHI PELVIC US I Anc Imaging Routine Pelvic pain in female Expected: 07/28/2022, Expires: 07/28/2023 [facility] Work Phone: Comment on above: Expected: 07/28/2022 , Expires: 07/28/2023 Start: 06-01-2022 Influenza vaccination [facility] Start: 03-16-2022 End: 05-16-2022 25-hydroxyvitamin D3 [Mass/volume] in Serum or Plasma VITAMIN D 25 HYDROXY Lab Routine Muscle ache Malaise and fatigue Expected: 03/16/2022, Expires: 05/16/2022 [facility] Work Phone: Comment on above: Expected: 03/16/2022 , Expires: 05/16/2022 Start: 03-16-2022 End: 05-16-2022 Alpha tocopherol [Mass/volume] in Serum or Plasma VITAMIN E/TOCOPHEROL Lab Routine Disturbance of skin sensation Expected: 03/16/2022, Expires: 05/16/2022 [facility] Work Phone: Comment on above: Expected: 03/16/2022 , Expires: 05/16/2022 Start: 03-16-2022 End: 05-16-2022 Cobalamin (Vitamin B12) [Mass/volume] in Serum or Plasma VITAMIN B12 BLOOD Lab Routine Disturbance of skin sensation Expected: 03/16/2022, Expires: 05/16/2022 [facility] Work Phone: Comment on above: Expected: 03/16/2022 , Expires: 05/16/2022 Start: 03-16-2022 End: 05-16-2022 Hemoglobin A1c in Blood HGB A1C Lab Routine Disturbance of skin sensation Expected: 03/16/2022, Expires: 05/16/2022 [facility] Work Phone: Comment on above: Expected: 03/16/2022 , Expires: 05/16/2022 Start: 03-16-2022 End: 05-16-2022 IMMUNOFIXATION SCREEN, SERUM IMMUNOFIXATION SCREEN, SERUM Lab Routine Disturbance of skin sensation Expected: 03/16/2022, Expires: 05/16/2022 [facility] Work Phone: Comment on above: Expected: 03/16/2022 , Expires: 05/16/2022 Start: 03-16-2022 End: 05-16-2022 KAPPA/TRUJILLO,FREE,SER KAPPA/TRUJILLO,FREE,SER Lab Routine Disturbance of skin sensation Expected: 03/16/2022, Expires: 05/16/2022 [facility] Work Phone: Comment on above: Expected: 03/16/2022 , Expires: 05/16/2022 Start: 03-16-2022 End: 05-16-2022 Pyridoxine [Mass/volume] in Serum or Plasma VITAMIN B6/PYRIDOXIN Lab Routine Disturbance of skin sensation Expected: 03/16/2022, Expires: 05/16/2022 [facility] Work Phone: Comment on above: Expected: 03/16/2022 , Expires: 05/16/2022 Start: 03-16-2022 End: 05-16-2022 VITAMIN B1 (THIAMINE), WHOLE BLOOD VITAMIN B1 (THIAMINE), WHOLE BLOOD Lab Routine Disturbance of skin sensation Expected: 03/16/2022, Expires: 05/16/2022 [facility] Work Phone: Comment on above: Expected: 03/16/2022 , Expires: 05/16/2022 Start: 2021 HPV TESTING HPV TESTING [facility] Start: 2021 Screening for malign ant neoplasm of cervix HPV/Cotest [facility] Start: 10-28-2021 COVID-19 VACCINE (4 - Booster for Moderna series) COVID-19 VACCINE (4 - Booster for Moderna series) [facility] Start: 10-28-2021 COVID-19 VACCINE (4 - Moderna series) COVID-19 VACCINE (4 - Moderna series) [facility] Start: 10-01-2021 DEPRESSION ASSESSMENT DEPRESSION ASS ESSMENT [facility] Start: 01-31-2020 Adult depression scr eening assessment DEPRESSION SCREENING [facility] Start: 2010 Hepatitis B Vaccine (1 of 3 - 19+ 3-dose series) Hepatitis B Vaccine (1 of 3 - 19+ 3-dose series) [facility] Start: 2010 Hepatitis B Vaccines (1 of 3 - 19+ 3-dose series) Hepatitis B Vaccines (1 of 3 - 19+ 3-dose series) [facility] Start: 2009 Depression Screening Depression Scre ening [facility] Start: 2009 Hepatitis C screening Hepatitis C Sc reening [facility] Start: 2004 Varicella vaccination Varicell a Vaccines (1 of 2 - 13+ 2-dose series) [facility] Start: 1992 MMR Vaccines (1 of 1 - Standard series) MMR Vaccines (1 of 1 - Standard series) [facility] Start: 1991 HEPATITIS B (1 of 3 - 3-dose series) HEPATITIS B (1 of 3 - 3-dose series) [facility] Start: 1991 Hepatitis B Vaccine (1 of 3 - 3-dose series) Hepatitis B Vaccine (1 of 3 - 3-dose series) [facility] Start: 1991 HIV screening HIV Screening [facility] Start: 1991 Lipid panel Lipid Panel [facility] C reactive protein [Mass/volume] in Serum or Plasma [facility] CBC W Auto Different ial panel - Blood [facility] CBC W Auto Different ial panel - Blood [facility] Celiac disease screen [facility] r [facility] Colonoscopy [facility] COVID & INFLUENZA A/ B & RSV PCR, ROUTINE COVID & INFLUENZA A/B & RSV PCR, ROUTINE Microbiology Routine Viral illness 07/23/2024 4:07 PM EDT [facility] Work Phone: Erythrocyte sediment ation rate [facility] Hemoglobin A1c/Hemoglobin.total in Blood [facility] Hepatitis B surface antigen measurement [facility] Hepatitis C antibody measurement [facility] HIV 1+2 Ab+HIV1 p24 Ag [Presence] in Serum or Plasma by Immunoassay [facility] Immunoglobulin measurement [facility] Lactate dehydrogenas e measurement [facility] Lactoferrin [Presenc e] in Stool by Immunoassay [facility] Neisseria gonorrhoea e rRNA [Presence] in Unspecified specimen by SONA with probe detection [facility] PAP FLUID CERVICAL SCREENING PAP FLUID CERVICAL SCREENING Lab Routine Screening for cervical cancer Special screening examination for human papillomavirus (HPV) 07/28/2022 1:36 PM EDT [facility] Work Phone: Patient referral [facility] Work Phone: PCR test for Chlamyd ia trachomatis [facility] Procedure [facility] Protein measurement [facility] Rubella IgG measurement [facility] Serum immunofixation [facility] Treponema sp Ab [Pre sence] in Serum [facility] Urine test [facility] End: 08-27-2023 Us transvaginal US FEMALE PELVIS TRANSVAG Radiology Routine Pelvic pain in female 1 Occurrences starting 07/28/2022 until 08/27/2023 [facility] Work Phone: Comment on above: 1 Occurrences starti ng 07/28/2022 until 08/27/2023 [facility] Immunizations Immunization Date Immunization Notes Care Provider Oralia lechuga 09-05-2022 influenza virus vaccine, unspecified formulation Danae Marc APRN.CNM Work Phone: [facility] 02-07-2021 tetanus toxoid, reduced diphtheria toxoid, and acellular pertussis vaccine, adsorbed Oswaldo Bernal MD Work Phone: [facility] Work Phone: 02-02-2021 tetanus toxoid, reduced diphtheria toxoid, and acellular pertussis vaccine, adsorbed [facility] 01-24-2021 RHO(D) immune globulin- IV or IM Oswaldo Bernal MD Work Phone: [facility] Work Phone: 11-18-2020 Covid (Moderna) [facility] 10-21-2020 Covid (Moderna) [facility] 07-14-2020 Influenza virus vaccine [facility] 08-15-2019 tetanus toxoid, reduced diphtheria toxoid, and acellular pertussis vaccine, adsorbed Ivan Fowler PA-C Work Phone: [facility] Comment on above: Site: Right [facility] alfredcarol: * Tdap (Tetanus, Diphtheria, Pertussis) (11/24/14) 07-12-2019 influenza, injectabl e, quadrivalent, contains preservative Ivan Fowler PA-C Work Phone: [facility] 07-12-2019 influenza, injectabl e, quadrivalent, preservative free PA-Maryellen HernandezMei [place] SAMREEN Work Phone: [facility] 07-12-2019 influenza, seasonal, injectable [facility] 01-01-2015 tetanus toxoid, reduced diphtheria toxoid, and acellular pertussis vaccine, adsorbed Oswaldo Bernal MD Work Phone: [facility] Work Phone: Payers Date Payer Category Payer Self-pay [id number] 2019 Private Health Insurance MMO SUP ER[employer] PPO [id number] 2019 Unknown MMO MMO [employer] PLUS [id number] 2019-Present [phone] [address] [place] [address] PPO [id number] [id number] 2019 Unknown [id number] 1.13.159. 2.7.3.550998.315 2019 Unknown [id number] 1991 Unknown [id number] 2.840.1.754368.3.579. 2 1991 Unknown [id number] 2.840.1.812514.3.579. 2 1991 Unknown [id number] 2.840.1.241298.3.579. 2 1991 Unknown [id number] 2.840.1.846266.3.579. 2 1991 Unknown [id number] 2.16840.1.559944.3.579. 2 1991 Unknown [id number] 2.840.1.920178.3.579. 2 1991 Unknown [id number] 2.16840.1.357979.3.579. 2.479 1991 Unknown [id number] 2.16.840.1.942457.3.579. 2.479 1991 Unknown [id number] 2.16.840.1.328739.3.579. 2.479 1991 Unknown [id number] 2.16.840.1.292991.3.579. 2.479 1991 Unknown [id number] 2.16.840.1.624939.3.579. 2.479 1991 Unknown [id number] 2.16.840.1.395487.3.579. 2479 1991 Unknown [id number] 2.16.840.1.035372.3.579. 2.479 1991 Unknown [id number] 2.16.840.1.538996.3.579. 2479 1991 Unknown [id number] 2.16.840.1.842417.3.579. 2479 1991 Unknown [id number] 2.16.840.1.417861.3.579. 2.651 1991 Unknown [id number] 2.16.840.1.458628.3.579. 2.651 1991 Unknown [id number] 2.16.840.1.432581.3.579. 2.651 1991 Unknown [id number] 2.16.840.1.964583.3.579. 2.594 Unknown [facility] PACKAGE PLAN [id number] Unknown [id number] 2.16.840.1.681901.3.579. 2.462 Unknown [id number] 2.16.840.1.608212.3.579. 2.462 Unknown [id number] 2.16.840.1.608385.3.579. 2.462 Unknown [id number] 2.16840.1.583960.3.579. 2.462 Unknown [id number] 2.16840.1.926844.3.579. 2.462 Unknown [id number] 2.16840.1.782740.3.579. 2.462 Unknown [id number] 2.16840.1.571330.3.579. 2.462 Unknown [id number] 2.16840.1.410975.3.579. 2.462 Unknown [id number] 2.840.1.998061.3.579. 2.462 Unknown [id number] 2.840.1.553844.3.579. 2.462 Unknown [id number] 2.840.1.238013.3.579. 2.462 Unknown [id number] 2.840.1.909485.3.579. 2.462 Unknown [id number] 2.840.1.438102.3.579. 2.462 Unknown [id number] 2.840.1.500627.3.579. 2.462 Unknown [id number] 2.840.1.825085.3.579. 2.462 Unknown [id number] 2.840.1.754370.3.579. 2.462 Unknown [id number] 2.840.1.306602.3.579. 2.462 Unknown [id number] 2.840.1.379148.3.579. 2.462 Unknown [id number] 2.840.1.434540.3.579. 2.462 Unknown [id number] 2.840.1.146158.3.579. 2.462 Unknown [id number] 2.840.1.000661.3.579. 2.462 Unknown [id number] 2.16.840.1.887081.3.579. 2.462 Unknown [id number] 2.16.840.1.108848.3.579. 2.462 Unknown [id number] 2.16.840.1.076443.3.579. 2.462 Unknown [id number] 2.16.840.1.124198.3.579. 2.462 Unknown [id number] 2.16840.1.661224.3.579. 2.462 Unknown [id number] 2.16840.1.884429.3.579. 2.462 Unknown [id number] 2.840.1.347744.3.579. 2.462 Unknown [id number] 2.840.1.567468.3.579. 2.462 Unknown [id number] 2.840.1.178027.3.579. 2.462 Unknown [id number] 2.840.1.867473.3.579. 2.462 Unknown [id number] 2.840.1.315139.3.579. 2.462 Unknown [id number] 2.840.1.819061.3.579. 2.462 Unknown [id number] 2.16.840.1.555314.3.579. 2.462 Unknown [id number] 2.840.1.196232.3.579. 2.462 Unknown [id number] 2.840.1.240471.3.579. 2.462 Unknown [id number] 2.16840.1.878527.3.579. 2.462 Unknown [id number] 2.16840.1.382487.3.579. 2.462 Unknown [id number] 2.16.840.1.237340.3.579. 2.462 Unknown [id number] 2.16840.1.599869.3.579. 2.462 Unknown [id number] 2.16.840.1.637603.3.579. 2.462 Unknown [id number] 2.16.840.1.431993.3.579. 2.462 Unknown [id number] 2.16.840.1.804938.3.579. 2.462 Unknown [id number] 2.16.840.1.128123.3.579. 2.462 Unknown [id number] 2.16.840.1.719105.3.579. 2.462 Social History Date Type Detail Facility Start: 04-19-2021 End: 12-24-2023 Tobacco smoking status MTIS Unknown if ever smoked [facility] Start: 1990 Sex Assigned At Female [facility] Start: 01-01-2015 End: 07-28-2022 Tobacco smoking status MTIS Never smoked tobacco [facility] Work Phone: Start: 01-01-2015 End: 07-28-2022 Tobacco use and exposure Smokeless tobacco non-user [facility] Work Phone: Start: 03-16-2022 End: 03-30-2025 Alcohol intake Current non-drinker of alcohol (finding) [facility] Start: 08-23-2020 History SDOH Financial 5 [facility] Start: 08-23-2020 History SDOH Food Worry 1 [facility] Start: 08-23-2020 History SDOH Transpo rt Med 2 [facility] Start: 08-23-2020 Education 17 [facility] Start: 1991 Sex Assigned At Not on file C [facility] Start: 03-06-2022 End: 05-10-2022 Exposure to SARS-CoV-2 (event) Not sure [facility] Start: 06-10-2023 End: 07-20-2023 History of Social function [facility] Work Phone: Start: 06-10-2023 End: 07-20-2023 Tobacco use panel [facility] Work Phone: How hard is it for y ou to pay for the very basics like food, housing, medical care, and heating Not hard at all [facility] Work Phone: (I/We) worried jovan er (my/our) food would run out before (I/we) got money to buy more. Never true [facility] Work Phone: The thought of sushma estrada myself has occurred to me Never [facility] Work Phone: Alcohol Use: Alcohol Use: ; None. [facility] Tobacco Use: Tobacco Use: ; N ever smoker. [employer] [facility] Start: 06-06-2024 Alcoholic beverage intake Ex-drinker (finding) [facility] [employer] Has the [employer], [employer] threatened to shut off services in your home in past 12Mo No [facility] [employer] Do you belong to any clubs or organizations such as christianity groups, unions, fraternal or athletic groups, or school groups? Yes [facility] Health Are you now , , , , never or living with a partner? [facility] How hard is it for y ou to pay for the very basics like food, housing, medical care, and heating Not very hard [facility] [employer] Do you feel stress - tense, restless, nervous, or anxious, or unable to sleep at night because your mind is troubled all the time - these days [OSQ] Not at all [facility] [employer] Start: 10-29-2023 [facility] NEGATED: Highlighted row [facility] Goals Date Patient Goal Desired Activity /State Functional Status Date Assessment Result Facility 03-25-2015 Are you deaf, or do you have serious difficulty hearing No 03/25/2015 10:26 AM Marianne Zabala RN No [facility] 03-25-2015 Are you blind, or do you have serious difficulty seeing, even when wearing glasses No 03/25/2015 10:26 AM Marianne Zabala RN No [facility] 03-25-2015 Do you have serious difficulty walking or climbing stairs No 03/25/2015 10:26 AM Marianne Zaabla RN No [facility] 03-25-2015 Do you have difficul ty dressing or bathing No 03/25/2015 10:26 AM Marianne Zabala RN No [facility] 03-25-2015 Because of a physica l, mental, or emotional condition, do you have difficulty doing errands alone such as visiting a physician's office or shopping No 03/25/2015 10:26 AM Marianne Zabala RN No [facility] Mental Status Date Assessment Result Facility 02-19-2023 Cognitive function Voice/Name [facility] Work Phone: 03-25-2015 Because of a physica l, mental, or emotional condition, do you have serious difficulty concentrating, remembering, or making decisions No 03/25/2015 10:26 AM Marianne Zabala RN No [facility] Clinical Notes 02-09-2019 to 03-30-2025 Mike Mccarthy APRN.GLAZE CARRIER - 03/30/2025 7:35 AM Zurdo Jhaveri APRN.GLAZE CARRIER - 02/01/2025 8:26 AM Mike Fitzgerald APRN.GLAZE CARRIER - 07/23/2024 3:32 PM EDTPatient InstructionsDischarge Instructions Note Date & Type Note Facility 03-30-2025 Note HNO ID: [id number] Author: MIKE MCCARTHY APRN.GLAZE CARRIER Service: ? Author Type: Nurse Practitioner Type: Progress Notes Filed: 03/30/2025 08:16 Note Text: Subjective HPI Nontoxic-appearing 34-year-old female presents urgent care chief plaint sinus pressure headache cough. States cough has improved. Sinus pressure has worsened. Most prominent symptom today is sinus pressure. OTC medications none recently. Unknown sick contacts. No fevers chest pain shortness of breath. Past medical history prescription medications allergies reviewed. Denies chance of . Is not breast-feeding. .Patient presents with: Sinus Problem: Nasal congestion, FIGUEROA, cough x 10 days PAST MEDICAL HISTORY Diagnosis Date Benign heart murmur Breast abscess 10/2019 left extremely dense breast tissue Gestational hypertension (HCC) History of gestational hypertension 08/23/2020 Small fiber neuropathy PAST SURGICAL HISTORY Procedure Laterality Date EXTRACTION, ERUPTED TOOTH OR EXPOSED ROOT (ELEVATION AND/OR FORCEPS REMOVAL) PAST SURGICAL HISTORY OF removal of bereast abcess ALLERGIES Latex and Penicillins MEDICATIONS escitalopram oxalate (LEXAPRO) 5 mg tablet Take 5 mg by mouth once daily. magnesium aspart,citrate,oxide (TRIPLE MAGNESIUM COMPLEX) 400 mg magnesium cap Take by mouth as directed. vit no.124/iron/folic ( VITAMIN ORAL) Take by mouth. (Patient not taking: Reported on 02/01/2025) famotidine (PEPCID ORAL) Take by mouth. (Patient [...] Alcohol use: No Drug use: Never BP 120/80 Pulse 70 Temp 36.6 ?C (97.9 ?F) Resp 18 Wt 98.3 kg (216 lb 11.4 oz) LMP 01/18/2025 (Exact Date) SpO2 97% BMI 32.95 kg/m? Review of Systems Constitutional: Negative for chills, fever and malaise/fatigue. HENT: Positive for congestion and sinus pain. Negative for ear discharge, ear pain and sore throat. Eyes: Negative for blurred vision, pain, discharge and redness. Respiratory: Negative for cough, hemoptysis, sputum production, shortness of breath, wheezing and stridor. Cardiovascular: Negative for chest pain. Gastrointestinal: Negative for abdominal pain, diarrhea, nausea and vomiting. Musculoskeletal: Negative for myalgias. Skin: Negative for itching and rash. Neurological: Positive for headaches. Negative for dizziness. Objective Physical Exam Constitutional: General: She is not in acute distress. Appearance: She is not diaphoretic. HENT: Head: Normocephalic. Jaw: No trismus, tenderness, swelling or pain on movement. Nose: Right Sinus: Maxillary sinus tenderness and frontal sinus tenderness present. Left Sinus: Maxillary sinus tenderness and frontal [...] to person, place, and time. ASSESSMENT/PLAN: 1. Bacterial sinusitis - ICD9: 473.9, 041.9, ICD10: J32.9, B96.89 Diagnosed with bacterial sinusitis. Placed on doxycycline. Patient was educated on supportive therapies. Patient will follow up with primary care provider as needed. Patient was instructed to immediately proceed to emergency room for any new, worsening, or symptoms lasting longer than anticipated. The patient's clinical presentation is otherwise unremarkable at this time. Based on exam and clinical finding, t (more content not included)... [facility] 03-30-2025 History of Presen t illness Narrative Subjective HPI Nontoxic-appearing 34-year-old female presents urgent care chief plaint sinus pressure headache cough. States cough has improved. Sinus pressure has worsened. Most prominent symptom today is sinus pressure. OTC medications none recently. Unknown sick contacts. No fevers chest pain shortness of breath. Past medical history prescription medications allergies reviewed. Denies chance of . Is not breast-feeding. .Patient presents with: Sinus Problem: Nasal congestion, FIGUEROA, cough x 10 days PAST MEDICAL HISTORY Diagnosis Date Benign heart murmur Breast abscess 10/2019 left extremely dense breast tissue Gestational hypertension (HCC) History of gestational hypertension 08/23/2020 Small fiber neuropathy PAST SURGICAL HISTORY Procedure Laterality Date EXTRACTION, ERUPTED TOOTH OR EXPOSED ROOT (ELEVATION AND/OR FORCEPS REMOVAL) PAST SURGICAL HISTORY OF removal of bereast abcess ALLERGIES Latex and Penicillins MEDICATIONS escitalopram oxalate (LEXAPRO) 5 mg tablet Take 5 mg by mouth once daily. magnesium aspart,citrate,oxide (TRIPLE MAGNESIUM COMPLEX) 400 mg magnesium cap Take by mouth as directed. vit no.124/iron/folic ( VITAMIN ORAL) Take by mouth. (Patient not taking: Reported on 02/01/2025) famotidine (PEPCID ORAL) Take by mouth. (Patient [...] Alcohol use: No Drug use: Never BP 120/80 Pulse 70 Temp 36.6 C (97.9 F) Resp 18 Wt 98.3 kg (216 lb 11.4 oz) LMP 01/18/2025 (Exact Date) SpO2 97% BMI 32.95 kg/m Review of Systems Constitutional: Negative for chills, fever and malaise/fatigue. HENT: Positive for congestion and sinus pain. Negative for ear discharge, ear pain and sore throat. Eyes: Negative for blurred vision, pain, discharge and redness. Respiratory: Negative for cough, hemoptysis, sputum production, shortness of breath, wheezing and stridor. Cardiovascular: Negative for chest pain. Gastrointestinal: Negative for abdominal pain, diarrhea, nausea and vomiting. Musculoskeletal: Negative for myalgias. Skin: Negative for itching and rash. Neurological: Positive for headaches. Negative for dizziness. Objective Physical Exam Constitutional: General: She is not in acute distress. Appearance: She is not diaphoretic. HENT: Head: Normocephalic. Jaw: No trismus, tenderness, swelling or pain on movement. Nose: Right Sinus: Maxillary sinus tenderness and frontal sinus tenderness present. Left Sinus: Maxillary sinus tenderness and frontal [...] to person, place, and time. ASSESSMENT/PLAN: 1. Bacterial sinusitis - ICD9: 473.9, 041.9, ICD10: J32.9, B96.89 Diagnosed with bacterial sinusitis. Placed on doxycycline. Patient was educated on supportive therapies. Patient [...] of care. This note was generated using [employer] software. It may contain errors in wording, punctuation, or spelling. Mike Mccarthy APRN.IRAJ documented in this encounter [facility] 02-01-2025 Note HNO ID: [id number] Author: ZURDO ARAIZA APRN.IRAJ Service: ? Author Type: Nurse Practitioner Type: Progress Notes Filed: 02/01/2025 08:52 Note Text: [facility] Subjective Willis Gautam is a 34 year old female. Patient presents with: Sore Throat: Body aches, fever, stomach ache x 4 days Patient is 34 year female that presents with body aches, sore throat and congestion for the last 4 days. Fever began last night. Patient had kids that were sick with croup the last week. She denies any chest pain or shortness of breath. Sore Throat Associated symptoms include congestion and coughing. Pertinent negatives include no abdominal pain, diarrhea, ear discharge, ear pain, headaches, neck pain, shortness of breath or vomiting. Review of Systems Constitutional: Positive for chills and fever. Negative for fatigue. HENT: Positive for congestion, postnasal drip and sore throat. Negative for dental problem, ear discharge, ear pain, mouth sores, nosebleeds, sinus pressure and sinus pain. Respiratory: Positive for cough. Negative for shortness of breath and wheezing. Gastrointestinal: Negative for abdominal pain, constipation, diarrhea and vomiting. Musculoskeletal: Positive for myalgias. Negative for neck pain and neck stiffness. Skin: Negative for rash. Neurological: Negative for headaches. Objective BP 112/75 Pulse 92 Temp 37.3 ?C (99.1 ?F) Resp 18 Wt 97 kg (213 lb 13.5 oz) LMP 01/18/2025 (Exact Date) SpO2 97% BMI 32.52 kg/m? Physical Exam Vitals and nursing note reviewed. Constitutional: General: She is not in acute distress. Appearance: Normal appearance. She is normal weight. She is not toxic-appearing. HENT: Head: Normocephalic and atraumatic. Right Ear: Ear canal and external ear normal. A middle ear effusion is present. Left Ear: Ear canal and external ear normal. A middle ear effusion is present. Nose: Congestion present. Right Sinus: No maxillary sinus tenderness or frontal sinus tenderness. Left Sinus: No maxillary sinus tenderness or frontal sinus tenderness. Mouth/Throat: Mouth: Mucous membranes are moist. Pharynx: Posterior oropharyngeal erythema and postnasal drip present. No pharyngeal swelling, oropharyngeal exudate or uvula swelling. Tonsils: No tonsillar exudate or tonsillar abscesses. Eyes: General: Lids are normal. Pupils: Pupils are equal, round, and reactive to light. Cardiovascular: Rate and Rhythm: Normal rate and regular rhythm. Heart sounds: Normal heart sounds, S1 normal and S2 normal. Pulmonary: Effort: Pulmonary effort is normal. Breath sounds: Normal breath sounds. Abdominal: General: Abdomen is flat. Bowel sounds are normal. Lymphadenopathy: Cervical: Cervical adenopathy present. Neurological: Mental Status: She is alert. {ASSESSMENT/PLAN: 1. Sore throat - ICD9: 462, ICD10: J02.9 (primary diagnosis) - Group A strep molecular testing negative - Discussed supportive care treatment with fluids, rest and analgesia. - Contagious dz precautions discussed- including considered contagious until on antibiotics for 24 hours - The patient should follow up in 3-5 days if symptoms persist or worsen - Call back if drooling, increased temperature, symptoms of dehydration and/or still sick in one week - STREP A MOLECULAR (POC) 2. Viral upper respiratory infection - ICD9: 465.9, ICD10: J06.9 - Discussed viral etiology and rationale for treatment. - Symptomatic treatment with prn analgesia - Supportive care with fluids and rest - The patient may also use OTC decongestants prn, OTC cough and cold meds as needed, warm salt water gargles, throat lozenges and/or OTC throat spray as needed, nasal saline gtts and suction prn, and Follow up with PCP if symptoms persist. Zurdo Araiza APRN.GLAZE CARRIER Differential Diagnoses - viral - QA SOFTWARE TESTER/Strep - pneumonia Disposition The patient was discharged. OTC Medications were advised: Tylenol and Ibuprofen patient is well-appearing 34-year-old female with no major medical history presents with a viral upper respiratory infection. No concerns for streptococcal pharyngitis, pneumonia, or acute sinusitis or bacterial process today. Discussed symptom management Tylenol and ibuprofen decongestants Flonase Nasacort as needed. Patient verbalized understanding agreement this plan discharged home. [facility] 02-01-2025 History of Presen t illness Narrative [facility] Subjective Willis Gautam is a 34 year old female. Patient presents with: Sore Throat: Body aches, fever, stomach ache x 4 days Patient is 34 year female that presents with body aches, sore throat and congestion for the last 4 days. Fever began last night. Patient had kids that were sick with croup the last week. She denies any chest pain or shortness of breath. Sore Throat Associated symptoms include congestion and coughing. Pertinent negatives include no abdominal pain, diarrhea, ear discharge, ear pain, headaches, neck pain, shortness of breath or vomiting. Review of Systems Constitutional: Positive for chills and fever. Negative for fatigue. HENT: Positive for congestion, postnasal drip and sore throat. Negative for dental problem, ear discharge, ear pain, mouth sores, nosebleeds, sinus pressure and sinus pain. Respiratory: Positive for cough. Negative for shortness of breath and wheezing. Gastrointestinal: Negative for abdominal pain, constipation, diarrhea and vomiting. Musculoskeletal: Positive for myalgias. Negative for neck pain and neck stiffness. Skin: Negative for rash. Neurological: Negative for headaches. Objective BP 112/75 Pulse 92 Temp 37.3 C (99.1 F) Resp 18 Wt 97 kg (213 lb 13.5 oz) LMP 01/18/2025 (Exact Date) SpO2 97% BMI 32.52 kg/m Physical Exam Vitals and nursing note reviewed. Constitutional: General: She is not in acute distress. Appearance: Normal appearance. She is normal weight. She is not toxic-appearing. HENT: Head: Normocephalic and atraumatic. Right Ear: Ear canal and external ear normal. A middle ear effusion is present. Left Ear: Ear canal and external ear normal. A middle ear effusion is present. Nose: Congestion present. Right Sinus: No maxillary sinus tenderness or frontal sinus tenderness. Left Sinus: No maxillary sinus tenderness or frontal sinus tenderness. Mouth/Throat: Mouth: Mucous membranes are moist. Pharynx: Posterior oropharyngeal erythema and postnasal drip present. No pharyngeal swelling, oropharyngeal exudate or uvula swelling. Tonsils: No tonsillar exudate or tonsillar abscesses. Eyes: General: Lids are normal. Pupils: Pupils are equal, round, and reactive to light. Cardiovascular: Rate and Rhythm: Normal rate and regular rhythm. Heart sounds: Normal heart sounds, S1 normal and S2 normal. Pulmonary: Effort: Pulmonary effort is normal. Breath sounds: Normal breath sounds. Abdominal: General: Abdomen is flat. Bowel sounds are normal. Lymphadenopathy: Cervical: Cervical adenopathy present. Neurological: Mental Status: She is alert. {ASSESSMENT/PLAN: 1. Sore throat - ICD9: 462, ICD10: J02.9 (primary diagnosis) - Group A strep molecular testing negative - Discussed supportive care treatment with fluids, rest and analgesia. - Contagious dz precautions discussed- including considered contagious until on antibiotics for 24 hours - The patient should follow up in 3-5 days if symptoms persist or worsen - Call back if drooling, increased temperature, symptoms of dehydration and/or still sick in one week - STREP A MOLECULAR (POC) 2. Viral upper respiratory infection - ICD9: 465.9, ICD10: J06.9 - Discussed viral etiology and rationale for treatment. - Symptomatic treatment with prn analgesia - Supportive care with fluids and rest - The patient may also use OTC decongestants prn, OTC cough and cold meds as needed, warm salt water gargles, throat lozenges and/or OTC throat spray as needed, nasal saline gtts and suction prn, and Follow up with PCP if symptoms persist. Zurdo Araiza APRN.GLAZE CARRIER Differential Diagnoses - viral - QA SOFTWARE TESTER/Strep - pneumonia Disposition The patient was discharged. OTC Medications were advised: Tylenol and Ibuprofen patient is well-appearing 34-year-old female with no major medical history presents with a viral upper respiratory infection. No concerns for streptococcal pharyngitis, pneumonia, or acute sinusitis or bacterial process today. Discussed symptom management Tylenol and ibuprofen decongestants Flonase Nasacort as needed. Patient verbalized understanding agreement this plan discharged home. documented in this encounter [facility] 07-23-2024 Note HNO ID: [id number] Author: MIKE MCCARTHY APRN.GLAZE CARRIER Service: ? Author Type: Nurse Practitioner Type: Progress Notes Filed: 07/23/2024 15:41 Note Text: Subjective HPI Nontoxic-appearing female presents to urgent care requesting COVID-19 testing. Patient states developed body aches chills fatigue yesterday. She is currently being treated for uterine infection by [employer] MACHINE [employer]ER. Currently on a meropenem. Daughter sick earlier [...] Never BP 102/64 Pulse 102 Temp 37.6 ?C (99.7 ?F) Resp 18 Wt 93.3 kg (205 lb 11 oz) LMP 09/17/2023 SpO2 98% BMI 31.27 kg/m? Review of Systems Constitutional: Positive for chills, [...] care with fluids and rest - COVID AND INFLUENZA A/B AND RSV PCR, ROUTINE If positive for COVID-19 patient will discuss antiviral therapy with [employer] MACHINE T[employer]ER. Patient was instructed to immediately proceed to emergency room for any new, worsening, or symptoms lasting longer than anticipated. The patient's clinical presentation is otherwise unremarkable at this time. Based on exam and clinical finding, the patient is stable for discharge. Plan of care was discussed with patient. Patient verbalizes understanding and agrees to plan of care. This note was generated using [employer] software. It may contain errors i (more content not included)... [facility] 07-23-2024 History of Presen t illness Narrative Subjective HPI Nontoxic-appearing female presents to urgent care requesting COVID-19 testing. Patient states developed body aches chills fatigue yesterday. She is currently being treated for uterine infection by [employer] MACHINE TENDER. Currently on a meropenem. Daughter sick earlier [...] COVID-19 patient will discuss antiviral therapy with [employer] MACHINE TENDER. Patient was instructed to immediately proceed to emergency room for any new, worsening, or symptoms lasting longer than anticipated. The patient's clinical presentation is otherwise unremarkable at this time. Based on exam and clinical finding, the patient is stable for discharge. Plan of care was discussed with patient. Patient verbalizes understanding and agrees to plan of care. This note was generated using [employer] software. It may contain errors in wording, punctuation, or spelling. Mike Mccarthy APRN.IRAJ documented in this encounter [facility] 07-23-2024 Instructions Mike Mccarthy APRN.CNP - [...] concerning to you. documented in this encounter [facility] 06-07-2024 Hospital Discharg e instructions Bessie Yañez MD - 06/07/2024 6:32 PM EDT Follow up appointment with your doctor/ferris wheel attendant - Keep next scheduled appointment Activity - Normal Activity Call your doctor/ferris wheel attendant if you have: - leaking fluid - [...] visit on 06/07/24 . Bessie Yañez MD [facility] documented in this encounter [facility] 06-07-2024 Note Department of Obstet rics and Gynecology [facility] Discharge Summary Admission on 06/06/2024 3:09 AM [...] Dx: tPTL Follow up appointment with your doctor/ferris wheel attendant - Keep next scheduled appointment Activity - Normal Activity Call your doctor/ferris wheel attendant if you have: - leaking fluid - vaginal bleeding - regular contractions: More than 6 contractions in one hour - decreased movement - worsening abdominal (belly) pain - headache, blurry vision, increased swelling, upper abdominal pain Pratima Alberto, 06/06/2024 6:54 AM [facility] 06-07-2024 History of Presen t illness [...] mg 650 mg Oral q6h PRN Pratima Schlieper, DO 650 mg at 06/07/24 0009 Or acetaminophen (Tylenol) suppository 650 mg 650 mg Rectal q6h PRN Pratima Schlieper, DO chlorhexidine (Hibiclens) 4 % solution 1 Application 1 Application Topical Daily Pratima Schmegganeper, DO docusate sodium (Colace) capsule 100 mg 100 mg Oral BID Pratimario Garrisoneper, DO famotidine (Pepcid) 20 mg in sodium chloride (PF) 0.9 % 10 mL injection 20 mg IntraVENous BID Tanya Syed DO 20 mg at 06/06/24 2043 Or famotidine (Pepcid) tablet 20 mg 20 mg Oral BID Tanya Syed DO lactated ringers infusion 125 mL/hr IntraVENous Continuous Pratima Schlieper, DO Stopped at 06/06/24 1639 NIFEdipine (Procardia) capsule 20 mg 20 mg Oral 4 times per day Tanya Syed DO 20 mg at 06/07/24 0005 ondansetron ODT (Zofran-ODT) disintegrating tablet 4 mg 4 mg Oral q8h PRN Pratima Schmegganeper, DO Or ondansetron (Zofran) injection 4 mg [...] for steroids, Procardia tocolysis, and GBS prophylaxis [place]/Di Twins - Last growth 05/12/24: Twin A [...] 06/05 Further plan pending d/w attending. Tanya Syed DO 06/07/2024, 5:52 AM Associated attestation - Lucinda Bar MD - 06/07/2024 11:02 AM EDT MFM ATTENDING I have personally obtained a history and examined the patient with Dr. Syed. I agree with the assessment and plan as documented in the resident's note. The patient is a 33 y.o. 33w5d now HD#2, admitted for PTL Pertinent Background: [place] Di twin with normal growth and no complications. Presented via car to [facility] from [place] secondary to CTXs and PTL with cervix [...] discharged home. Delivery will be planned at [place]. 25 minutes spent in total floor time today for review of records, patient interview and exam, documentation and coordination of care with care teams. Lucinda Bar MD Vancomycin therapy has been discontinued by Dr Syed on 06/06/24. Thank you for the consult. Pharmacy signing off for vancomycin dosing. Sukhi Raymond PharmD Date: 06/06/24 Time: 5:16 PM documented in this encounter [facility] 06-06-2024 History and physical note Department [...] Estimated Date of Delivery: 07/21/24 CARE: Complications: Covington-Di twins Heart murmur Obesity Rh incompatibility PAST [...] Resource Strain: Low Risk (08/23/2020) Received from [facility] Overall Financial Resource Strain (CARDIA) Difficulty of Paying Living Expenses: Not hard at all Food Insecurity: No Food Insecurity (08/23/2020) Received from [facility] Hunger Vital Sign Worried About Running Out of Food in the Last Year: Never true Ran Out of Food in the Last Year: Never true Transportation Needs: No Transportation Needs (08/23/2020) Received from [facility] PRAPARE - Transportation Lack of Transportation [...] for steroids, Procardia tocolysis, and GBS prophylaxis [place]/Di Twins - Last growth 05/12/24: Twin A [...] x 2 Ultrasound today: A: Cephalic, EFW 2080g B: Breech, EFW 2056g Lab Results Component Value Date WBC 6.6 [...] then can anticipate discharge. Can deliver in [place] at 34 weeks, confirmed with Dr. Hart. 35 minutes spent in total floor time today for review of records, patient interview and exam, documentation and coordination of care with care teams. Lucinda Bar MD [facility] 06-06-2024 Note Attestation signed by Lucinda Bar MD at 06/06/2024 5:10 PM M ATTENDING I have personally obtained a history [...] then can anticipate discharge. Can deliver in [place] at 34 weeks, confirmed with Dr. Hart. [...] for contractions Transport: Yes, drove herself from [place] Prior Hospitalizations: No Estimated Due Date: Estimated Date of Delivery: 07/21/24 CARE: Complications: C[place]-Di twins Heart murmur Obesity Rh incompatibility PAST [...] Resource Strain: Low Risk (08/23/2020) [facility] [facility] Overall Financial Resource Strain (CARDIA) Difficulty of Paying Living Expenses: Not hard at all Food Insecurity: No Food Insecurity (08/23/2020) Received from [facility] Hunger Vital Sign Worried About Running Out of Food in the Last Year: Never true Ran Out of Food in the Last Year: Never true Transportation Needs: No Transportation Needs (08/23/2020) Received from [facility] PRAPARE - Transportation Lack of Transportation [...] Negative. Cardiovascular: Negativ (more content not included)... [facility] 06-06-2024 History and physical note Department [...] for contractions Transport: Yes, drove herself from [place] Prior Hospitalizations: No Estimated Due Date: Estimated Date of Delivery: 07/21/24 CARE: Complications: [place]ovington-Di twins Heart murmur Obesity Rh incompatibility PAST [...] Resource Strain: Low Risk (08/23/2020) Received from [facility] Overall Financial Resource Strain (CARDIA) Difficulty of Paying Living Expenses: Not hard at all Food Insecurity: No Food Insecurity (08/23/2020) Received from [facility] Hunger Vital Sign Worried About Running Out of Food in the Last Year: Never true Ran Out of Food in the Last Year: Never true Transportation Needs: No Transportation Needs (08/23/2020) Received from [facility] PRAPARE - Transportation Lack of Transportation [...] for steroids, Procardia tocolysis, and GBS prophylaxis [place]/Di Twins - Last growth 05/12/24: Twin A [...] medications IUP @ 33w4d - Dating by /\ US - VTX/VTX 06/06 - Monitoring: CEFM [...] x 2 Ultrasound today: A: Cephalic, EFW 1g B: Breech, EFW 2056g Lab Results Component Value Date WBC 6.6 [...] Lucinda Bar MD documented in this encounter [facility] 06-06-2024 Consult note Formatting of th is note might be different from the original. Images from the original note were not included. Pharmacy Managed Vancomycin Dosing Service Consult Note Consult Date: 06/06/24 Patient Name: Willis Gautam Allergies: Pcn [penicillins] Age: 33 y.o. Sex: female There is no height or weight on file to calculate BMI. DW: 108.5 kg No results found for: CREATININE, BUN, WBC, CRCLEARANCECalculated CrCl: none mL/min (Cockcroft-Gault) Consulted By: Pratima Alberto Infectious Diagnosis: GBS prophylaxis Random Vancomycin Level Due: 06/07/24 at 0430 Assessment/Plan: Doses, serum creatinine, and vancomycin levels interfaced automatically to [employer] and data has been analyzed and interpreted. [...] PharmD Clinical Pharmacist Available via Secure Chat [facility] 06-06-2024 Consult note Formatting of th is note might be different from the original. Images from the original note were not included. Pharmacy Managed Vancomycin Dosing Service Consult Note Consult Date: 06/06/24 Patient Name: Willis Gautam Allergies: Pcn [penicillins] Age: 33 y.o. Sex: female There is no height or weight on file to calculate BMI. DW: 108.5 kg No results found for: CREATININE, BUN, WBC, CRCLEARANCECalculated CrCl: none mL/min (Cockcroft-Gault) Consulted By: Pratima Alberto Infectious Diagnosis: GBS prophylaxis Random Vancomycin Level Due: 06/07/24 at 0430 Assessment/Plan: Doses, serum creatinine, and vancomycin levels interfaced automatically to [employer] and data has been analyzed and interpreted. [...] via Secure Chat documented in this encounter [facility] 06-03-2024 History of Presen t illness [...] PATIENT PRESENTS WITH AN IMPLANTABLE OR ATTACHED RN COMPLEX CARE: No RADIOLOGY DEPARTMENT: General X-ray: Exam(s) Completed: Lower Extremity X-Ray(s): Foot, Right PERIPHERAL IV DATA: Not applicable SIGNED BY: RT Oliver(Laine) June 03, 2024 2:03 PM documented in this encounter [facility] 06-03-2024 Note HNO ID: [id number] Author: LIAM GAVIRIA RT(R) Service: ? Author Type: Biofuels Research Scientist Type: Progress Notes Filed: 06/03/2024 14:11 Note [...] PATIENT PRESENTS WITH AN IMPLANTABLE OR ATTACHED RN COMPLEX CARE: No RADIOLOGY DEPARTMENT: General X-ray: Exam(s) Completed: Lower Extremity X-Ray(s): Foot, Right PERIPHERAL IV DATA: Not applicable SIGNED BY: RT Oliver(Laine) June 03, 2024 2:03 PM [facility] 06-03-2024 Note HNO ID: [id number] Author: MARY HERRERA APRN.GLAZE CARRIER Service: ? Author Type: Nurse Practitioner Type: [...] history is provided by the patient. No second language tutor was used. Pain (foot) Pain location: right [...] No tenderness. Abdom (more content not included)... [facility] 06-03-2024 History of Presen t illness Narrative This note was created using Thrasos[employer]. Subjective Willis Gautam is a 33 year [...] history is provided by the patient. No second language tutor was used. Pain (foot) Pain location: right [...] or podiatry for continued sx. Mary Herrera APRN.GLAZE CARRIER documented in this encounter [facility] 01-14-2024 History of Presen t illness Narrative This note was created using magnetU. Subjective Willis Gautam is a 33 year [...] 3-5 days if symptoms persist or worsen. Kylee Sage PA-C documented in this encounter [facility] 08-04-2023 Note HNO ID: [id number] Author: Tiera Carlin RT(R) Service: ? 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 Thank you .Danae Marc APRN.CNM Please see pt's mychart message and advise. Mei Clark LPN documented in this encounter [facility] 06-10-2023 History of Presen t illness Narrative [...] of care. This note was generated using [employer] software. It may contain errors in wording, punctuation, or spelling. Mike Mccarthy APRN.IRAJ documented in this encounter [facility] 02-21-2023 History of Presen t illness [...] IV DATA: Not applicable SIGNED BY: Mary Copeland RDMS RVT February 21, 2023 9:56 AM documented in this encounter [facility] 09-27-2022 History of Presen t illness Narrative This note was created using [employer]rasos[employer]. Subjective Willis Gautam is a 31 year [...] history is provided by the patient. No second language tutor was used. Sinus Problem This is a [...] Mary Herrera APRN.IRAJ documented in this encounter [facility] 09-10-2022 Instructions Mike Mccarthy APRN.IRAJ - 09/10/2022 11:11 AM EST How to [...] primary care provider. documented in this encounter [facility] 09-10-2022 History of Presen t illness [...] ear normal. Nose: Congestion present. Mouth/Throat: Lips: Epes. Mouth: Mucous membranes are moist. Pharynx: Oropharynx [...] of care. This note was generated using [employer] software. It may contain errors in wording, punctuation, or spelling. Mike Mccarthy APRN.GLAZE CARRIER documented in this encounter [facility] 08-03-2022 History of Presen t illness Narrative Opened in error Gerald Bernal MD' documented in this encounter [facility] 07-28-2022 History of Presen t illness Narrative Cigar Head Pegger offered: Patient declines. 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 IMPRESSION IMPRESSION: No acute radiographic abnormality. Direct Support Worker: JUAN CARLOS Transcribe Date/Time: May 10 2022 [...] occur. Patient agreeable to treatment plan. Humera Bernal APRN.GLAZE CARRIER documented in this encounter [facility] 03-16-2022 Instructions Oswaldo Bernal MD - 03/16/2022 4:53 PM EDT Can try magnesium oxide 400mg daily documented in this encounter [facility] 03-16-2022 History of Presen t illness Narrative Images from the original note were not included. [facility] New Patient Evaluation Consulting [...] denied. She also mentions developing intermittent anterior goldberg tender bumps, especially over the past 1-2 years. Other [...] with chronic intermittent palpitations she describes as fluttering. Last PCP appointment (Dr. Hernandez) about 4 [...] Job Title: [employer] ([employer]) Years Of Education Completed: 16 years Marital Status: to [place] with 1 child FAMILY HISTORY Problem Relation [...] 119/73 Pulse 66 Ht 172.7 cm (5' 8) Wt 88.5 kg (195 lb) LMP 09/26/2021 [...] raising-bilaterally negative COORDINATION/GAIT: Normal finger-to- nose-finger and iszs-up-pmiy bilaterally. Intact rapid alternating movements bilaterally. Gait narrow-based and stable. Tandem and stressed gait intact. PRIOR STUDIES: PERTINENT PREVIOUS OSH STUDIES [facility] ([place], [place]) 07/29/2018 Vit B12 356 CCP Neg Thyroglobulin Ab <1 (neg) TSH 0.6 Uric Acid 3.8 (normal) CRP 0 ESR 7 C3 103.8 (within normal) SPEP: polyclonal elevation gamma globulin A (normal pattern) Anti-ZEE Neg Pathology Report ([facility] [place], [place]) Epidermal nerve fiber density Samples: L thigh [...] AB Test Not Indicated HIV Interpretation Negative [place] Free, Serum 3.30 - 19.40 mg/L 15.8 Lambda Free, Serum 5.7 - 26.3 mg/L 12.6 K/L Ratio, Serum 0.26 - 1.65 1.25 MPA Result No M protein is identified. No M protein is identified. Staff Review (MPA) Reviewed by Torin Villegas M.D. ([id number]) Vitamin E-alpha 6.0 - 23.0 mg/L 5.6 [...] will be communicated to the patient via [email or web address]. Patient to call office if not contacted after expected testing turnaround time. To aid with communication, patients (and primary care physicians) can sign up for Echograph (or Be[employer]ice[employer]reeze Tech), which allows online appointment scheduling, transmission of labs results and chart notes, and secure email communication. To establish either account, visit [email or web address]. Oswaldo Bernal MD Neuromuscular Medicine (NM) Fellow In the service of Dr.John Sanchez (NM Staff) [facility] STAFF: TEACHING PHYSICIAN NOTE OF PERSONAL INVOLVEMENT IN CARE INCLUDING MEDICAL DECISION MAKING I have reviewed the clinical details obtained and documented by Dr. Bernal and I have participated in the bach components, including pertinent aspects of the history and physical examination. I have discussed the case and management of the patient's care with Dr. Bernal. I essentially agree with the assessment and plan as documented above. Edits to the note are indicated by italics. The duration of this appointment visit was 45 minutes of collective kegv-ab-dgio time with the patient. At least 50% [...] derivation. Bobby Sanchez MD Staff, [facility] Electronically signed March 17, 2022 6:04 PM Referring provider/ Primary care provider: Mei Hernandez ([facility]) [address] [place] [address] documented in this encounter [facility] 10-04-2021 Note HNO ID: [id number] Author: Anastasiya Rouse MD Service: ? Author Type: Physician Type: Progress Notes Filed: 10/04/2021 10:17 AM Note Text: [place] [address] SUBJECTIVE Chief Complaint: Patient presents with: Breast [...] 126/62 Pulse 76 Ht 172.7 cm (5' 8) Wt 93 kg (205 lb) LMP 09/26/2021 [...] years. Anastasiya Rouse MD 10/04/2021 10:03 AM [facility] 02-09-2019 History of Past i llness Narrative Problem Noted Date Resolved Date First trimester 02/09/20192019 Other skin changes 02/09/2019 09/06/2020 Pain in both lower extremities 11/04/2018 1 11/07/2019 Concern about neurological disease without diagn osis 11/04/2018 09/06/2020 Palpitations 08/10/2015 09/06/2020 documented as of this encounter (statuses as of 03/17/2022) [facility] History of Past illness Narrative* Problem Noted Date Resolved Date First trimester 02/09/20192019 Other skin changes 02/09/2019 09/06/2020 Pain in both lower extremities 11/04/2018 1 11/07/2019 Concern about neurological disease without diagn osis 11/04/2018 09/06/2020 Palpitations 08/10/2015 09/06/2020 documented as of this encounter (statuses as of 05/10/2022) [facility] History of Past illness Narrative* Problem Noted Date Resolved Date First trimester 02/09/20192019 Other skin changes 02/09/2019 09/06/2020 Pain in both lower extremities 11/04/2018 1 11/07/2019 Concern about neurological disease without diagn osis 11/04/2018 09/06/2020 Palpitations 08/10/2015 09/06/2020 documented as of this encounter (statuses as of 07/28/2022) [facility] History of Past illness Narrative* Problem Noted Date Resolved Date First trimester 02/09/20192019 Other skin changes 02/09/2019 09/06/2020 Pain in both lower extremities 11/04/2018 1 11/07/2019 Concern about neurological disease without diagn osis 11/04/2018 09/06/2020 Palpitations 08/10/2015 09/06/2020 documented as of this encounter (statuses as of 08/01/2022) [facility] History of Past illness Narrative* Problem Noted Date Resolved Date First trimester 02/09/20192019 Other skin changes 02/09/2019 09/06/2020 Pain in both lower extremities 11/04/2018 1 11/07/2019 Concern about neurological disease without diagn osis 11/04/2018 09/06/2020 Palpitations 08/10/2015 09/06/2020 documented as of this encounter (statuses as of 08/03/2022) [facility] History of Past illness Narrative* Problem Noted Date Resolved Date First trimester 02/09/20192019 Other skin changes 02/09/2019 09/06/2020 Pain in both lower extremities 11/04/2018 1 11/07/2019 Concern about neurological disease without diagn osis 11/04/2018 09/06/2020 Palpitations 08/10/2015 09/06/2020 documented as of this encounter (statuses as of 08/04/2022) [facility] History of Past illness Narrative* Problem Noted Date Resolved Date First trimester 02/09/20192019 Other skin changes 02/09/2019 09/06/2020 Pain in both lower extremities 11/04/2018 1 11/07/2019 Concern about neurological disease without diagn osis 11/04/2018 09/06/2020 Palpitations 08/10/2015 09/06/2020 documented as of this encounter (statuses as of 09/10/2022) [facility] History of Past illness Narrative* Problem Noted Date Resolved Date First trimester 02/09/20192019 Other skin changes 02/09/2019 09/06/2020 Pain in both lower extremities 11/04/2018 1 11/07/2019 Concern about neurological disease without diagn osis 11/04/2018 09/06/2020 Palpitations 08/10/2015 09/06/2020 documented as of this encounter (statuses as of 10/04/2022) [facility] History of Past illness Narrative* Problem Noted Date Diagnosed Date Resolved Date First trimester 02/09/2019 Other skin changes 02/09/2019 0 Pain in both lower extremities 11/04/2018 09/06/2020 Concern about neurological d isease without diagnosis 11/04/2018 09/06/2020 Palpitations 08/10/2015 09/06/2020 documented as of this encounter (statuses as of 06/10/2023) [facility] History of Past illness Narrative* Problem Noted Date Diagnosed Date Resolved Date First trimester 02/09/2019 Other skin changes 02/09/2019 0 Pain in both lower extremities 11/04/2018 09/06/2020 Concern about neurological d isease without diagnosis 11/04/2018 09/06/2020 Palpitations 08/10/2015 09/06/2020 documented as of this encounter (statuses as of 07/03/2023) [facility] History of Past illness Narrative* Problem Noted Date Diagnosed Date Resolved Date First trimester 02/09/2019 Other skin changes 02/09/2019 0 Pain in both lower extremities 11/04/2018 09/06/2020 Concern about neurological d isease without diagnosis 11/04/2018 09/06/2020 Palpitations 08/10/2015 09/06/2020 documented as of this encounter (statuses as of 07/20/2023) [facility] History of Past illness Narrative* Problem Noted Date Diagnosed Date Resolved Date First trimester 02/09/2019 Other skin changes 02/09/2019 0 Pain in both lower extremities 11/04/2018 09/06/2020 Concern about neurological d isease without diagnosis 11/04/2018 09/06/2020 Palpitations 08/10/2015 09/06/2020 documented as of this encounter (statuses as of 08/06/2023) [facility] History of Past illness Narrative* Problem Noted Date Diagnosed Date Resolved Date First trimester 02/09/2019 Other skin changes 02/09/2019 0 Pain in both lower extremities 11/04/2018 09/06/2020 Concern about neurological d isease without diagnosis 11/04/2018 09/06/2020 Palpitations 08/10/2015 09/06/2020 documented as of this encounter (statuses as of 08/07/2023) [place] [id number] History of Past illness Narrative* Problem Noted Date Diagnosed Date Resolved Date First trimester 02/09/2019 Other skin changes 02/09/2019 0 Pain in both lower extremities 11/04/2018 09/06/2020 Concern about neurological d isease without diagnosis 11/04/2018 09/06/2020 Palpitations 08/10/2015 09/06/2020 documented as of this encounter (statuses as of 01/15/2024) [facility] noteNo assessment information availableWMorrow County Hospital Work Phone: Evaluation note* Diagnosis Myofascial pain dysfunction syndrome- Primary Mylagia and myositis, unspecified Disturbance of skin sensation Small fiber neuropathy Unspecified hereditary and idiopathic peripheral neuropathy Muscle ache Mylagia and myositis, unspecified Malaise and fatigue Other malaise and fatigue Central sensitization to pain Vitamin E deficiency Deficiency of other vitamins documented in this encounter [facility] note* Diagnosis Acute cough- Primary Sore throat Acute pharyngitis documented in this encounter [facility] note* Diagnosis Pelvic pain in female- Primary Unspecified symptom associated with female genital organs Screening for cervical cancer Screening for malignant neoplasm of the cervix Special screening examination for human papillomavirus (HPV) documented in this encounter [facility] note* Diagnosis Pelvic pain in female- Primary Unspecified symptom associated with female genital organs documented in this encounter [facility] note* Diagnosis Pelvic pain in female Unspecified symptom associated with female genital organs documented in this encounter [facility] note* Diagnosis OPENED IN ERROR- Primary To allow closing an encounter opened in error (used in SmartSet) documented in this encounter [facility] note* Diagnosis Sore throat- Primary Acute pharyngitis Viral illness Unspecified viral infection, in conditions classified elsewhere and of unspecified site documented in this encounter [facility] note* Diagnosis Sinusitis, unspecified chronicity, unspecified location- Primary documented in this encounter [facility] note* Diagnosis Onset Date Resolution Status Abdominal pain chronic Postprandial diarrhea chroni c Postprandial nausea chronic [facility] Work Phone: Evaluation note* Diagnosis Onset Date Resolution Status Abdominal pain chronic Postprandial diarrhea chroni c Postprandial nausea chronic Gastritis acute LLQ abdominal pain acute [facility] Work Phone: Evaluation note* Diagnosis Chronic neck and back pain- Primary documented in this encounter [facility] note* Diagnosis Female infertility- Primary Female infertility of unspecified origin Irregular periods/menstrual cycles Irregular menstrual cycle documented in this encounter [facility] note* Diagnosis Cyst of ovary, unspecified laterality documented in this encounter [facility] note* Diagnosis Onset Date Resolution Status Herniated disc, cervical acu te acute Small fiber neuropathy acute Supervision of high risk , antepartum acute [facility] Work Phone: Evaluation note* Diagnosis Onset Date Resolution Status Herniated disc, cervical acu te acute Small fiber neuropathy acute Supervision of high risk , antepartum acute GBS (group B streptococcus) UTI complicating acute Left lower quadrant abdomina l pain affecting in first trimester acute acute Small fiber neuropathy acute Supervision of high risk , antepartum acute Gastritis acute GBS (group B streptococcus) UTI complicating acute Herniated disc, cervical acu te Left lower quadrant abdomina l pain affecting in first trimester acute LLQ abdominal pain acute Neck pain acute acute Small fiber neuropathy acute Supervision of high risk , antepartum acute Twin gestation with third acute Abdominal pain chronic Postprandial diarrhea chroni c Postprandial nausea chronic [facility] Work Phone: Evaluation note* Diagnosis Bacterial sinusitis- Primary Unspecified sinusitis (chronic) documented in this encounter [facility] note* Diagnosis Breast pain- Primary Mastodynia Left breast abscess- Primary Inflammatory disease of breast Breast pain Mastodynia extremely dense breast tissue- Primary Breast pain Mastodynia Foot pain, right- Primary Pain in limb Foot pain, right Pain in limb documented in this encounter [facility] note* Diagnosis Breast pain- Primary Mastodynia Left breast abscess- Primary Inflammatory disease of breast Breast pain Mastodynia extremely dense breast tissue- Primary Breast pain Mastodynia Foot pain, right Pain in limb documented in this encounter [facility] note* Diagnosis contractions- Primary Monochorionic diamniotic twin gestation in third trimester contractions documented in this encounter [facility] note* Diagnosis Breast pain- Primary Mastodynia Left breast abscess- Primary Inflammatory disease of breast Breast pain Mastodynia extremely dense breast tissue- Primary Breast pain Mastodynia Acute cough [facility] Diagnosis Breast pain- Primary Mastodynia Left breast abscess- Primary Inflammatory disease of breast Breast pain Mastodynia extremely dense breast tissue- Primary Breast pain Mastodynia Viral illness- Primary Unspecified viral infection, in conditions classified elsewhere and of unspecified site [facility] [facility] [place] [facility] Diagnosis Breast pain- Primary Mastodynia Left breast abscess- Primary Inflammatory disease of breast Breast pain Mastodynia extremely dense breast tissue- Primary Breast pain Mastodynia Sore throat- Primary Acute pharyngitis Viral upper respiratory infection Acute upper respiratory infections of unspecified site documented in this encounter [facility] [place] [facility] Diagnosis Breast pain- Primary Mastodynia Left breast abscess- Primary Inflammatory disease of breast Breast pain Mastodynia extremely dense breast tissue- Primary Breast pain Mastodynia Bacterial sinusitis- Primary Unspecified sinusitis (chronic) documented in this encounter [facility] for referral (narrative)* Diagnostic Procedure Only (Routine) - Authorized Specialty Diagnoses / Procedures Referred By Contac Referred To Contact [facility] Diagnoses Pelvic pain in female Procedures PELVIC US WHI US PELVIC NONOBSTETRIC REAL-TIME IMAGE COMPLETE Gerald Bernal MD [address] [place] [address] [facility] [address] [place] [place] [address] Referral ID Status Reason Start Date Expiration Date Visits Requested Visits Authorized [id number] Authorized Auto-Generat ed Referral 2 07/28/2023 1 1 * Diagnostic Procedure Only (Routine) - Pending Review Specialty Diagnoses / Procedures Referred By Contac t Referred To Contact US IMAGING Diagnoses Pelvic pain in female Procedures US FEMALE PELVIS TRANSVAG US TRANSVAGINAL Gerald Bernal MD [address] [place] [address] Us Imaging Referral ID Status Reason Start Date Expiration Date Visits Requested Visits Authorized [id number] Pending Review Auto-Generat ed Referral 2 08/27/2023 1 1 [facility] for referral (narrative)* Diagnostic Procedure Only (Routine) - Closed Specialty Diagnoses / Procedures Referred By Contac t Referred To Contact US IMAGING Diagnoses Cyst of ovary, unspecified laterality Procedures US FEMALE PELVIS TRANSVAG US TRANSVAGINAL Gerald Bernal MD [address] [place] [address] [place] [address] Referral ID Status Reason Start Date Expiration Date V isits Requested Visits Authorized [id number] Closed Auto-Generate d Referral 02/16/2023 03/17/2024 1 1 [facility] for referral (narrative)* Diagnostic Procedure Only (Urgent) - Closed Specialty Diagnoses / Procedures Referred By Contac t Referred To Contact XR IMAGING Diagnoses Foot pain, right Procedures XR FOOT GENERAL 3V AP/LAT/OBL RIGHT RADEX FOOT COMPLETE MINIMUM 3 VIEWS Mary Herrera APRN.[employer] [address] [place] [address] [place] [address] Referral ID Status Reason Start Date Expiration Date V isits Requested Visits Authorized [id number] Closed Auto-Generate d Referral 06/03/2024 07/03/2025 1 1 [facility] for referral (narrative)* Diagnostic Procedure Only (Urgent) - Closed Specialty Diagnoses / Procedures Referred By Contac t Referred To Contact XR IMAGING Diagnoses Foot pain, right Procedures XR FOOT GENERAL 3V AP/LAT/OBL RIGHT RADEX FOOT COMPLETE MINIMUM 3 VIEWS Mary Herrera APRN.[employer] [address] [place] [address] [place] [address] Referral ID Status Reason Start Date Expiration Date V isits Requested Visits Authorized [id number] Closed Auto-Generate d Referral 06/03/2024 07/03/2025 1 1 [facility] Diagnostic Procedure Only (Routine) - Closed Specialty Diagnoses / Procedures Referred By Contac t Referred To Contact [facility] Diagnoses Pelvic pain in female Procedures PELVIC US WHI US PELVIC NONOBSTETRIC REAL-TIME IMAGE COMPLETE Gerald Bernal MD [address] [place] [address] [facility] [address] [place] [address] Referral ID Status Reason Start Date Expiration Date V isits Requested Visits Authorized [id number] Closed Auto-Generate d Referral 07/28/2022 07/28/2023 1 1 [facility] Diagnostic Procedure Only (Urgent) - Closed Specialty Diagnoses / Procedures Referred By Contac t Referred To Contact XR IMAGING Diagnoses Foot pain, right Procedures XR FOOT GENERAL 3V AP/LAT/OBL RIGHT RADEX FOOT COMPLETE MINIMUM 3 VIEWS Mary Herrera APRN.[employer] [address] [place] [address] [place] [address] Referral ID Status Reason Start Date Expiration Date V isits Requested Visits Authorized [id number] Closed Auto-Generate d Referral 06/03/2024 07/03/2025 1 1 [facility] Summary Purpose Family History Relationship Condition Age at Onset Recorded Date/T juice mother Malignant neoplasm of breast Unknown Diabetes mellitus Unknown father Ulcerative colitis Unknown Relationship Condition Age at Onset Recorded Date/T juice mother Malignant neoplasm of breast Unknown Diabetes mellitus Unknown father Ulcerative colitis Unknown grandmother Malignant neoplasm of colon Unknown grandfather Malignant neoplasm Unknown aunt Malignant neoplasm Unknown Breast Cancer Status:Active Comments:Mother. Cerebrovascular Accident Status:Active Comment s:Paternal Grandfather. Mother. Colon Cancer Status:Active Comments:Materna l Grandmother. Diabetes Mellitus Type II Status:Active Commen ts:Paternal Grandfather. Mother. Hypertension Status:Active Comments:Mother. Maternal Grandfather. Maternal Grandmother. Paternal Grandmother. Paternal Grandfather. Hypertension Status:Active Comments:Mother. Maternal Grandmother. Osteoarthritis Status:Active Comments:Materna l Grandmother. Advance Directives Advance Directive Response Recorded Date/ Time Living Will No April 19, 2021 8:12am Power of Associate Material Handler No April 19 8:12am Advance Directive Response Recorded Date/ Time Living Will No April 19, 2021 7:12am Power of Associate Material Handler No April 19 7:12am Advance Directive Response Recorded Date/ Time Living Will No February 15, 2023 2 :38pm Power of Associate Material Handler No February 15, 2023 2:38pm Advance Directive Response Recorded Date/ Time Living Will No September 25, 2 023 11:08am Power of Associate Material Handler No September 25, 2023 11:08am Advance Directive Response Recorded Date/ Time Living Will No September 25, 2 023 12:08pm Power of Associate Material Handler No September 25, 2023 12:08pm Date Activated Date Inactivated Comments 06/06/2024 4:34 AM 06/07/2024 9:22 PM Health Concerns Infection Onset Date Last Indicated Resolved Time COVID-19 Rule-Out 09/10/2022 09/10/2022 Chief Complaint and Reason for Visit Chief Complaint SCREENING Chief Complaint SCREENING Consult POSTPRANDIAL N/V/DIARRHEA Reason for Visit Abdominal pain Postprandial diarrhea Postprandial nausea Chief Complaint SCREENING Consult POSTPRANDIAL N/V/DIARRHEA LLQ PAIN Reason for Visit Abdominal pain Postprandial diarrhea Postprandial nausea Chief Complaint Consult POSTPRANDIAL N/V/DIARRHEA LLQ PAIN 2 WK FU SPLENOMEGALY Reason for Visit Abdominal pain Postprandial diarrhea Postprandial nausea Gastritis LLQ abdominal pain Chief Complaint CERVICAL SPINE GASTRITIS RULE OUT ETOPIC NOB, Twins, LMP 10/15/23 Reason for Visit Herniated disc, cerv ical Small fiber neuropathy Supervision of high risk , antepartum Chief Complaint CERVICAL SPINE GASTRITIS RULE OUT ETOPIC NOB, Twins, LMP 10/15/23 8 WK OB, rescan *TWINS 10 WK OB *TWINS Reason for Visit Herniated disc, cerv ical Small fiber neuropathy Supervision of high risk , antepartum GBS (group B streptococcus) UTI complicating Left lower quadrant abdominal pain affecting in first trimester Small fiber neuropathy Supervision of high risk , antepartum Gastritis GBS (group B streptococcus) UTI complicating Herniated disc, cervical Left lower quadrant abdominal pain affecting in first trimester LLQ abdominal pain Neck pain Small fiber neuropathy Supervision of high risk , antepartum Twin gestation with third Abdominal pain Postprandial diarrhea Postprandial nausea Additional Source Comments INFORMATION SOURCE (unrecogn ized section and content) DATE CREATED AUTHOR 03/25/2020 Raul [facility] [employer] [facility] DATE CREATED AUTHOR AUTHOR'S ORGANIZ ATION 10/05/2021 [facility] DATE CREATED AUTHOR AUTHOR'S ORGANIZ ATION 08/05/2023 [facility] DATE CREATED AUTHOR AUTHOR'S ORGANIZ ATION 06/11/2024 [facility] DATE CREATED AUTHOR AUTHOR'S ORGANIZ ATION 06/24/2024 [facility] DATE CREATED AUTHOR AUTHOR'S ORGANIZ ATION 09/23/2024 [facility] DATE CREATED AUTHOR AUTHOR'S ORGANIZ ATION 11/08/2024 [facility] DATE CREATED AUTHOR AUTHOR'S ORGANIZ ATION 03/29/2025 [facility] DATE CREATED AUTHOR AUTHOR'S ORGANIZ ATION 03/30/2025 [facility] Goals (unrecognized section and content) Goals may be documented in a n alternate sectionGoals may be documented in an alternate sectionGoals may be documented in an alternate sectionGoals may be documented in an alternate sectionGoals may be documented in an alternate sectionGoals may be documented in an alternate section Source Comments (unrecognize d section and content) In the event this informatio n is protected by the Federal Confidentiality of Alcohol and Drug Abuse Patient Records regulations: The Federal rules restrict any use of the information to criminally investigate or prosecute any alcohol or drug abuse patient.[facility] Hospital[facility] the event this information is protected by the Federal Confidentiality of Alcohol and Drug Abuse Patient Records regulations: The Federal rules restrict any use of the information to criminally investigate or prosecute any alcohol or drug abuse patient.[facility] Hospital[facility] the event this information is protected by the Federal Confidentiality of Alcohol and Drug Abuse Patient Records regulations: The Federal rules restrict any use of the information to criminally investigate or prosecute any alcohol or drug abuse patient.[facility] HospitalIn the event this information is protected by the Federal Confidentiality of Alcohol and Drug Abuse Patient Records regulations: The Federal rules restrict any use of the information to criminally investigate or prosecute any alcohol or drug abuse patient.[facility] HospitalIn the event this information is protected by the Federal Confidentiality of Alcohol and Drug Abuse Patient Records regulations: The Federal rules restrict any use of the information to criminally investigate or prosecute any alcohol or drug abuse patient.[facility] HospitalIn the event this information is protected by the Federal Confidentiality of Alcohol and Drug Abuse Patient Records regulations: The Federal rules restrict any use of the information to criminally investigate or prosecute any alcohol or drug abuse patient.[facility] HospitalIn the event this information is protected by the Federal Confidentiality of Alcohol and Drug Abuse Patient Records regulations: The Federal rules restrict any use of the information to criminally investigate or prosecute any alcohol or drug abuse patient.[facility] HospitalIn the event this information is protected by the Federal Confidentiality of Alcohol and Drug Abuse Patient Records regulations: The Federal rules restrict any use of the information to criminally investigate or prosecute any alcohol or drug abuse patient.[facility] HospitalIn the event this information is protected by the Federal Confidentiality of Alcohol and Drug Abuse Patient Records regulations: The Federal rules restrict any use of the information to criminally investigate or prosecute any alcohol or drug abuse patient.[facility] HospitalIn the event this information is protected by the Federal Confidentiality of Alcohol and Drug Abuse Patient Records regulations: The Federal rules restrict any use of the information to criminally investigate or prosecute any alcohol or drug abuse patient.[facility] HospitalIn the event this information is protected by the Federal Confidentiality of Alcohol and Drug Abuse Patient Records regulations: The Federal rules restrict any use of the information to criminally investigate or prosecute any alcohol or drug abuse patient.[facility] HospitalIn the event this information is protected by the Federal Confidentiality of Alcohol and Drug Abuse Patient Records regulations: The Federal rules restrict any use of the information to criminally investigate or prosecute any alcohol or drug abuse patient.[facility] HospitalIn the event this information is protected by the Federal Confidentiality of Alcohol and Drug Abuse Patient Records regulations: The Federal rules restrict any use of the information to criminally investigate or prosecute any alcohol or drug abuse patient.[facility] HospitalIn the event this information is protected by the Federal Confidentiality of Alcohol and Drug Abuse Patient Records regulations: The Federal rules restrict any use of the information to criminally investigate or prosecute any alcohol or drug abuse patient.[facility] HospitalIn the event this information is protected by the Federal Confidentiality of Alcohol and Drug Abuse Patient Records regulations: The Federal rules restrict any use of the information to criminally investigate or prosecute any alcohol or drug abuse patient.[facility] HospitalIn the event this information is protected by the Federal Confidentiality of Alcohol and Drug Abuse Patient Records regulations: The Federal rules restrict any use of the information to criminally investigate or prosecute any alcohol or drug abuse patient.[facility] HospitalIn the event this information is protected by the Federal Confidentiality of Alcohol and Drug Abuse Patient Records regulations: The Federal rules restrict any use of the information to criminally investigate or prosecute any alcohol or drug abuse patient.[facility] HospitalIn the event this information is protected by the Federal Confidentiality of Alcohol and Drug Abuse Patient Records regulations: The Federal rules restrict any use of the information to criminally investigate or prosecute any alcohol or drug abuse patient.[facility] HospitalIn the event this information is protected by the Federal Confidentiality of Alcohol and Drug Abuse Patient Records regulations: The Federal rules restrict any use of the information to criminally investigate or prosecute any alcohol or drug abuse patient.[facility] HospitalIn the event this information is protected by the Federal Confidentiality of Alcohol and Drug Abuse Patient Records regulations: The Federal rules restrict any use of the information to criminally investigate or prosecute any alcohol or drug abuse patient.[facility] Reason for Visit (unrecogniz ed section and content) Reason Comments New Patient Reason Comments Sore Throat Cough, bilateral ear pain x 5 days Reason Comments Menstrual Problem 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 Reason Comments Opened In Error Reason [...] Procedures US FEMALE PELVIS TRANSVAG US TRANSVAGINAL Gerald Bernal MD [address] [place] [address] [place] [address] Referral ID Status Reason Start Date Expiration Date V isits Requested Visits Authorized [id number] Closed Auto-Generate d Referral 02/16/2023 03/17/2024 1 1 Specialty Diagnoses / Procedures Referred By Contac t Referred To Contact Radiology / RADIO MRI Diagnoses Other cervical disc displacement, unspecified cervical region MRI CERVICAL SPINE WO CONTRAST [M50.20] PT ORDER IS IN SCANNED DOCUMENTS 07/10/23 Procedures MRI SPINAL CANAL CERVICAL W/O CONTRAST MATRL MRI WO MELECIO B 300 ALL Abdon Drummond, DO [address] [place] [address] Radio Mri [facility] [address] [place] [address] Referral ID Status Reason Start Date Expiration Date Visits Re quested Visits Authorized [id number] Closed 07/18/2023 09/30/2023 1 1 Reason Comments Sinus Problem Congestion, FIGUEROA, left ear pain x 2 weeks Reason Comments right foot pain X 2 weeks-cannot rec all an injury Reason Comments Contractions Specialty Diagnoses / Procedures Referred By Contac t Referred To Contact Diagnoses contractions Procedures , [place] [address] Ach H2 Ob Triage [address] [place] [address] Referral ID Status Reason Start Date Expiration Date Visits Re quested Visits Authorized [id number] 1 1 Reason Comments Fever bodyaches, chills x 8 days, requesting covid and flu test to rule out Reason Comments Sore Throat Body aches, fever, s tomach ache x 4 days Reason Comments Sinus Problem Nasal congestion, FIGUEROA , cough x 10 days Care Teams (unrecognized sec tion and content) Legal Support Assistant Relationship Specialty Start Date End Date Mei Hernandez PA-C PCP - General Family Practice 07/04/14 Kristian Parikh DO Referring Neurology 10/28/18 Josefa Noel PA-C Referring Family Practice 11/04/18 Legal Support Assistant Relationship Specialty Start Date End Date Mei Hernandez PA-C PCP - General Family Practice 07/04/14 Kristian Parikh DO Referring Neurology 10/28/18 Josefa Noel PA-C Referring Family Practice 11/04/18 Legal Support Assistant Relationship Specialty Start Date End Date Mei Hernandez PA-C PCP - General Family Medicine 07/04/14 Kristian Parikh DO Referring Neurology 10/28/18 Josefa Noel PA-C Referring Family Medicine 11/04/18 Legal Support Assistant Relationship Specialty Start Date End Date Mei Hernandez PA-C PCP - General Family Medicine 07/04/14 Kristian Parikh DO Referring Neurology 10/28/18 Josefa Noel PA-C Referring Family Medicine 11/04/18 Legal Support Assistant Relationship Specialty Start Date End Date Mei Hernandez PA-C PCP - General Family Medicine 07/04/14 Kristian Parikh DO Referring Neurology 10/28/18 Josefa Noel PA-C Referring Family Medicine 11/04/18 Legal Support Assistant Relationship Specialty Start Date End Date Mei Hernandez PA-C PCP - General Family Medicine 07/04/14 Kristian Parikh DO Referring Neurology 10/28/18 Josefa Noel PA-C Referring Family Medicine 11/04/18 Legal Support Assistant Relationship Specialty Start Date End Date Mei Hernandez PA-C PCP - General Family Medicine 07/04/14 Kristian Parikh DO Referring Neurology 10/28/18 Josefa Noel PA-C Referring Family Medicine 11/04/18 Legal Support Assistant Relationship Specialty Start Date End Date Mei Hernandez PA-C PCP - General Family Medicine 07/04/14 Kristian Parikh DO Referring Neurology 10/28/18 Josefa Noel PA-C Referring Family Medicine 11/04/18 Team Status: Active Member Role Status Dates Mei JOLLEY PA-C Family Provider Active Mei JOLLEY PA-C Primary Care Provider Active Team Status: Inactive Member Role Status Dates Mei JOLLEY PA-C Primary Care Provider Active Self Referred Attending Provider Active Team Status: Inactive Member Role Status Dates Mei JOLLEY PA-C Primary Care Provider, Referri ng Provider Active Angy Smith INSTRUCTOR MILIT[employer] SCIENCE, INSTRUCTOR MILITARY SCIENCE-C Attending Provider Active Team Status: Inactive Member Role Status Dates [facility] SAMREEN, PA-C Primary Care Provider Active Angy Smith INSTRUCTOR MILIT[employer] SCIENCE, INSTRUCTOR MILITARY SCIENCE-C Attending Provider, Referrin g Provider Active Team Status: Active Member Role Status Dates [facility] SAMREEN, PA-C Primary Care Provider, Referri ng Provider Active Dr. Topher Johnson DO Attending Provider, Other Prov ider Active Team Status: Inactive Member Role Status Dates [facility] SAMREEN, PA-C Primary Care Provider, Referri ng Provider Active Dr. Topher Johnson DO Attending Provider Active Team Status: Active Member Role Status Dates [facility] PA, PA-C Primary Care Pro vider, Attending Provider, Referring Provider Active Team Status: Inactive Member Role Status [facility] PA, PA-C Primary Care Pro vider, Attending Provider, Referring Provider Active Team Status: Inactive Member Role Status [facility] SAMREEN, PA-C Primary Care Provider Active Angy Smith INSTRUCTOR MILIT[employer] SCIENCE, INSTRUCTOR MILITARY SCIENCE-C Attending Provider Active Legal Support Assistant Relationship Specialty Start Date End Date Mei Hernandez PA-C PCP - General Family Medicine 07/04/14 Kristian Parikh DO Referring Neurology 10/28/18 Josefa Noel PA-C Referring Family Medicine 11/04/18 Legal Support Assistant Relationship Specialty Start Date End Date Mei Hernandez PA-C PCP - General Family Medicine 07/04/14 Kristian Parikh DO Referring Neurology 10/28/18 Josefa Noel PA-C Referring Family Medicine 11/04/18 Legal Support Assistant Relationship Specialty Start Date End Date Mei Hernandez PA-C PCP - General Family Medicine 07/04/14 Kristian Parikh DO Referring Neurology 10/28/18 Josefa oNel PA-C Referring Family Medicine 11/04/18 Legal Support Assistant Relationship Specialty Start Date End Date Mei Hernandez PA-C PCP - General Family Medicine 07/04/14 Kristian Parikh DO Referring Neurology 10/28/18 Josefa Noel PA-C Referring Family Medicine 11/04/18 Legal Support Assistant Relationship Specialty Start Date End Date Mei Hernandez PA-C PCP - General Family Medicine 07/04/14 Kristian Parikh DO Referring Neurology 10/28/18 Josefa Noel PA-C Referring Family Medicine 11/04/18 Team Status: Inactive Member Role Status Dates Mei JOLLEY PA-C Primary Care Provider, Referri ng Provider Active Dr. Abdon Drummond DO Attending Provider Active Team Status: Inactive Member Role Status Dates Mei JOLLEY PA-C Primary Care Provider, Referri ng Provider Active Marianne Fraire CNM Attending Provider Active Team Status: Inactive Member Role Status Dates [facility] SAMREEN PA-C Primary Care Provider Active Dr. Topher Johnson DO Attending Provider, Referring Provider Active Team Status: Inactive Member Role Status Dates [facility] SAMREEN, PA-C Primary Care Provider Active Marianne Fraire CNM Attending Provider, Referring Pro vider Active Team Status: Active Member Role Status Dates [facility] SAMREEN PA-C Primary Care Provider Active Marianne Fraire CNM Attending Provider, Referring Pro vider Active Team Status: Inactive Member Role Status Dates [facility] SAMREEN, PA-C Primary Care Provider, Referri ng Provider Active Dr. Julianne Antony DO Attending Provider Activ e Team Status: Inactive Member Role Status Dates [facility] SAMREEN, PA-C Primary Care Provider, Referri ng Provider Active Constance Munoz CNM Attending Provider Active Legal Support Assistant Relationship Specialty Start Date End Date Mei Hernandez PA-C PCP - General Family Medicine 07/04/14 Kristian Parikh DO Referring Neurology 10/28/18 Josefa Noel PA-C Referring Family Medicine 11/04/18 Legal Support Assistant Relationship Specialty Start Date End Date Mei Hernandez PA-C PCP - General Family Medicine 07/04/14 Kristian Parikh DO Referring Neurology 10/28/18 Josefa Noel PA-C Referring Family Medicine 11/04/18 Legal Support Assistant Relationship Specialty Start Date End Date Mei Hernandez PA-C PCP - General Family Medicine 07/04/14 Kristian Parikh DO Referring Neurology 10/28/18 Josefa Noel PA-C Referring Family Medicine 11/04/18 Legal Support Assistant Relationship Specialty Start Date End Date Mei Hernandez PA-C PCP - General Family Medicine 07/04/14 Kristian Parikh DO Referring Neurology 10/28/18 Josefa Noel PA-C Referring Family Medicine 11/04/18 Legal Support Assistant Relationship Specialty Start Date End Date Mei [...] 1 dose 2200 (Given - Provider: Erin Corrales RN) chlorhexidine (Hibiclens) 4 % solution 1 Application 1 Application, Topical, Daily, First dose on Sun06/06/24 at 0445, Use solution to clean abdomen upon admission then once daily until delivered 5 (Canceled Entry - Provider: Automatic Discharge Provider - Comment: Automatically canceled at discontinue of medication order) 0900 (Canceled Entry - Provider: Automatic Discharge Provider - Comment: Automatically canceled at discontinue of medication order) docusate sodium (Colace) capsule 100 mg 100 mg, Oral, 2 times daily, First dose on Sun06/06/24 at 0900, Do not crush or break. 899 (Not Given - Provider: Micaela Peoples RN - Reason: Patient/family refused)2041 (Not Given - Provider: Erin Corrales RN - Reason: Patient/family refused) 899 (Not Given - Provider: Yakov Garcia RN - Reason: Patient/family refused)2099 (Canceled Entry - Provider: Automatic Discharge Provider [...] mL NS 0809 (Given - Provider: Micaela Peoples RN) famotidine (Pepcid) 20 mg in sodium chloride (PF) 0.9 % 10 mL injection(Linked Group 1) 20 mg, IntraVENous, Administer over 2 Minutes, 2 times daily, First dose (after last modification) on Sun06/06/24 at 2100, IV Push over minimum of 2 minutes - Dilute with 10 mL NS 2042 (Given - Provider: Erin Corrales RN) 913 (See Alternative - Provider: Yakov Garcia, RN)2099 (Canceled Entry - Provider: Automatic Discharge Provider - Comment: Automatically canceled at discontinue of medication order) famotidine (Pepcid) tablet 20 mg(Linked Group 1) 20 mg, Oral, 2 times daily, First dose on Sun06/06/24 at 2100 2042 (See Alternative - Provider: Erin Corrales RN) [...] Erin Corrales RN)1213 (Given - Provider: Yakov Garcia RN)1819 (Given - Provider: Yakov Garcia RN) vitamin tablet 1 tablet, Oral, Daily, First dose on Sun06/06/24 at 0900, With First Dose As Scheduled. 1200 (Not Given - Provider: Miguelina Vargas RN - Reason: Patient/family refused) 0914 (Given - Provider: Ykaov Garcia RN) Continuous Medication Order 06/05/2024 06/06/2024 06/07/2024 lactated ringers infusion 125 mL/hr, IntraVENous, Continuous, Starting on Sun06/06/24 at 0445 0621 (New Bag - Provider: Constance Lamb RN)1429 (New Bag - Provider: Miguelina Vargas, ARTIE)1639 (Stopped - Provider: Anyi Farnklin RN) PRN Medication Order 06/05/2024 06/06/2024 06/07/2024 [...] RN) 0009 (See Alternative - Provider: Erin Corrales, RN)1013 (See Alternative - Provider: Yakov Garcia, RN) acetaminophen (Tylenol) tablet 650 mg(Linked Group 2) 650 mg, Oral, Every 6 hours PRN, mild pain (1-3), fever, For temp greater than 100.4 F (38 C), Starting on Sun06/06/24 at 0418, Maximum dose of acetaminophen is 4000 mg from all sources in 24 hours. 1241 (Given - Provider: Miguelina Vargas RN)1821 (Given - Provider: Anyi Franklin RN) 0009 (Given - Provider: Erin Corrales, RN)1013 (Given - Provider: Yakov Garcia, RN) ondansetron (Zofran) injection 4 mg(Linked Group [...] BE BASED ON THE PRIMARY CLINICAL RECORDS. [facility] [employer] [facility] provides no warranty or guarantee of the accuracy or completeness of information in this document.
== END | disposition home or self-care (01) ==
LOC: MRI 16:10
PROVIDERS: PCP Family Medicine; Referring Provider Podiatrist; Visit Provider Podiatrist
DX: S92.351A Displaced fracture of fifth metatarsal bone, right foot, initial encounter for closed fracture (principal); M76.61 Achilles tendinitis, right leg; X58.XXXA Exposure to other specified factors, initial encounter
CPT/HCPCS: 73718

== ENCOUNTER → 2025-06-22 | Outpatient (CLI) | payer OTHER, SELFPAY ==
[2025-06-22 09:39] LABS: Hematocrit 38.7 % (37-47); Hemoglobin 13.3 g/dL (12.0-15.0); Immature Granulocytes Count 0.010 X10^3/uL (0.0-0.0); Mean Corp Hgb Conc 34.4 g/dL (32-36); Mean Corpuscular Volume 90.6 fL (81-99); Mean Platelet Vol. 10.3 fl (6.2-12.0); NRBC Flagged by Analyzer 0 % (0-5); Platelet Count 205 K/mm3 (150-450); RBC Distribution Width CV 12.7 % (11.6-14.6); RBC Distribution Width SD 42.1 fl (35.1-43.9); Red Blood Count 4.27 M/mm3 (4.2-5.4); White Blood Count 5.9 K/mm3 (4.4-11.0)
== END | disposition home or self-care (01) ==
LOC: LAB 09:06
PROVIDERS: PCP Family Medicine; Referring Provider Nurse Practitioner Acute Care; Visit Provider Nurse Practitioner Acute Care
DX: R11.0 Nausea (principal); R53.83 Other fatigue; R10.13 Epigastric pain; R10.11 Right upper quadrant pain
CPT/HCPCS: 36415; 85025